=== PATIENT | female | born 1960 | race Two or more races ===

== ENCOUNTER 2020-09-03 11:52 | Outpatient (REF) | payer MEDICAID, SELFPAY ==
[2020-09-03 13:48] LABS: Alanine Aminotransferase 16 U/L (0-31); Albumin Level 4.4 g/dL (3.5-5.0); Alkaline Phosphatase 71 U/L (39-117); Anion Gap 11 (12-20); Aspartate Amino Transferase 15 U/L (5-31); Bilirubin Total 0.3 mg/dL (0.0-1.0); Blood Urea Nitrogen 14 mg/dL (9-16); Calcium 9.8 mg/dL (8.4-10.2); Carbon Dioxide 30 mmol/L (22-29); Chloride 102 mmol/L (96-108); Estimated Glomerular Filt Rate > 60; Glucose Random 140 mg/dL (60-115); Potassium 4.3 mmol/l (3.3-5.1); Sodium 139 mmol/L (135-145); Total Protein 7.4 g/dL (6.5-8.0)
[2020-09-03 14:11] LABS: Free T4 (Free Thyroxine) 1.25 ng/dL (0.71-1.85); Thyroid Stimulating Hormone 0.85 mIU/mL (0.32-4.0)
[2020-09-10 21:27] LABS: Fructosamine 271 umol/L (205-285)
== END 2020-09-03 11:53 | disposition home or self-care (01) ==
LOC: HO.LAB 11:52
PROVIDERS: Visit Provider Internal Medicine Endocrinology, Diabetes & Metabolism
DX: E11.65 Type 2 diabetes mellitus with hyperglycemia (principal); E03.9 Hypothyroidism, unspecified
CPT/HCPCS: 80053; 82985; 84439; 84443

== ENCOUNTER 2020-09-07 14:50 | Outpatient (REF) | payer MEDICAID, SELFPAY ==
--- NOTE | 2020-09-07 15:58 | XR_ITS ---
EXAMINATION: XR SHOULDER, RIGHT CLINICAL INFORMATION: Pain COMPARISON: Previous x-ray July 2017 chest x-ray most recent June 2018 TECHNIQUE: Three views of the right shoulder. FINDINGS: Bone alignment is normal. No fracture or dislocation is seen. The glenohumeral joint is normal. There is mild arthritis at the acromioclavicular joint. There are densities that project over the greater tuberosity. When compared with previous chest x-ray and shoulder x-ray this represents soft tissue calcifications. IMPRESSION: Mild arthritis at the acromioclavicular joint. Soft tissue calcification over the greater tuberosity probably representing calcific bursitis or tendinitis.
== END 2020-09-07 14:51 | disposition home or self-care (01) ==
LOC: HO.XRAY 14:50
PROVIDERS: Absent Provider Emergency Medicine; PCP Emergency Medicine; Referring Provider Emergency Medicine; Visit Provider Internal Medicine Endocrinology, Diabetes & Metabolism
DX: E11.65 Type 2 diabetes mellitus with hyperglycemia (principal); I10 Essential (primary) hypertension; E03.9 Hypothyroidism, unspecified; E78.5 Hyperlipidemia, unspecified; M25.551 Pain in right hip; Z79.4 Long term (current) use of insulin
CPT/HCPCS: 73030; 99214

== ENCOUNTER → 2020-09-22 12:29 | Outpatient (BNVA) | payer MEDICAID, SELFPAY | PROVIDERS: PCP Emergency Medicine; Referring Provider Emergency Medicine; Visit Provider Physician Assistant | DX: A04.8 Other specified bacterial intestinal infections (principal) | CPT/HCPCS: 99212 ==

== ENCOUNTER 2020-09-23 11:25 | Outpatient (REF) | payer MEDICAID, SELFPAY ==
[2020-09-23 12:42] LABS: Cholesterol 126 mg/dL; HDL Cholesterol 40 mg/dL; LDL Cholesterol Calculated 64 mg/dl; Triglycerides 114 mg/dL
[2020-09-23 12:55] LABS: Microalbumin Urine < 5.0 mg/L
[2020-09-23 17:48] LABS: Vitamin B12 304 pg/mL (200-900)
[2020-09-24 20:57] LABS: LDL Cholesterol Direct 75 mg/dL (<100)
[2020-09-28 21:21] LABS: Fructosamine 281 umol/L (205-285)
== END 2020-09-23 11:26 | disposition home or self-care (01) ==
LOC: HO.LAB 11:25
PROVIDERS: Physician Assistant; Visit Provider Internal Medicine Endocrinology, Diabetes & Metabolism
DX: A04.8 Other specified bacterial intestinal infections (principal); E11.65 Type 2 diabetes mellitus with hyperglycemia
CPT/HCPCS: 80061; 82043; 82607; 82985; 83721; 87338

== ENCOUNTER → 2020-10-20 08:44 | Outpatient (BNVA) | payer MEDICAID, SELFPAY | PROVIDERS: PCP Emergency Medicine; Visit Provider Physician Assistant | DX: A04.8 Other specified bacterial intestinal infections (principal); Z79.899 Other long term (current) drug therapy; Z79.84 Long term (current) use of oral hypoglycemic drugs | CPT/HCPCS: 99212 ==

== ENCOUNTER 2020-11-17 11:23 | Outpatient (REF) | payer MEDICAID, SELFPAY ==
--- NOTE | 2020-11-17 11:27 | US_ITS ---
EXAMINATION: US THYROID CLINICAL INFORMATION: Hypothyroidism, unspecified. COMPARISON: None. TECHNIQUE: Linear transducer zimmerman-scale and color Doppler examination with attention to the region of the thyroid. FINDINGS: SIZE: Measurements of the thyroid lobes and nodules are given in sagittal, anteroposterior and transverse dimensions respectively. Right Thyroid Lobe: 1.7 x 0.8 x 0.8 cm, volume 0.6 mL. Parenchyma: The gland echotexture is heterogeneous. Thyroid vascularity is normal. Left Thyroid Lobe: 3.1 x 0.7 x 0.8 cm, volume 0.9 mL. Parenchyma: The gland echotexture is homogeneous. Thyroid vascularity is normal. Isthmus: 0.1 cm in maximum AP dimension. RIGHT THYROID LOBE: No nodules. ISTHMUS: No nodules. LEFT THYROID LOBE: No nodules. NODES: No lymphadenopathy is seen in the tissue surrounding the thyroid gland. US/US thyroid IMPRESSION: Unremarkable ultrasound thyroid exam.
== END 2020-11-17 11:24 | disposition home or self-care (01) ==
LOC: HO.US 11:23
PROVIDERS: Visit Provider Internal Medicine Endocrinology, Diabetes & Metabolism
DX: E03.9 Hypothyroidism, unspecified (principal); S46.911A Strain of unspecified muscle, fascia and tendon at shoulder and upper arm level, right arm, initial encounter
CPT/HCPCS: 76536; 99202

== ENCOUNTER → 2020-12-06 14:20 | Outpatient (BNVA) | payer MEDICAID, SELFPAY | PROVIDERS: Visit Provider Nurse Practitioner Gerontology | DX: E11.65 Type 2 diabetes mellitus with hyperglycemia (principal); I10 Essential (primary) hypertension | CPT/HCPCS: 82947; 99212 ==

== ENCOUNTER 2020-12-15 11:06 | Outpatient (REF) | payer MEDICAID, SELFPAY | END 2020-12-15 11:07 | disposition home or self-care (01) | LOC: HO.LAB 11:06 | PROVIDERS: Visit Provider Internal Medicine | DX: Z20.822 Contact with and (suspected) exposure to COVID-19 (principal) | CPT/HCPCS: 36415; C9803; U0003 ==

== ENCOUNTER → 2020-12-21 09:23 | Outpatient (BNVA) | payer MEDICAID, SELFPAY | PROVIDERS: PCP Family Medicine; Visit Provider Internal Medicine Endocrinology, Diabetes & Metabolism | DX: E11.65 Type 2 diabetes mellitus with hyperglycemia (principal); I10 Essential (primary) hypertension; E78.5 Hyperlipidemia, unspecified; E03.9 Hypothyroidism, unspecified; Z79.4 Long term (current) use of insulin | CPT/HCPCS: 82947; 99212 ==

== ENCOUNTER 2021-01-01 20:17 | Emergency (ER) | payer MEDICAID, SELFPAY ==
--- NOTE | ~2021-01-01 | XR_ITS ---
EXAMINATION: XR SHOULDER, RIGHT CLINICAL INFORMATION: Pain COMPARISON: 09/07/2020 TECHNIQUE: AP external rotation, Grashey, scapular Y, and axillary views of the right shoulder. FINDINGS: There is mild acromioclavicular osteoarthritis. There is mild lateral downsloping of the acromion with osteophytosis of the undersurface. Glenohumeral joint is well preserved. No fracture. Alignment is anatomic. Visualized right lung and ribs are normal. XR/XR shoulder RT min 2V IMPRESSION: No acute osseous abnormality of the right shoulder.
[2021-01-01 20:25] VITALS: BP 132/98; PULSE 115; RESP 18; TEMP 36.7; O2SAT 98; BMI 23.1
--- NOTE | 2021-01-01 21:49 | ED.URI ---
HPI - URI/Sore Throat General Chief Complaint: Extremity Injury, Upper Stated Complaint: sholder pain Time Seen by Provider: 01/01/21 21:49 Source: patient Mode of arrival: ambulatory Limitations: language barrier History of Present Illness HPI Narrative: Patient complaining of upper back pain and sore throat for last few weeks with similar history in the past patient does have history of gastric reflux not taking any PPI at this time no fever no cough no shortness of breath Related Data Home Medications Medication Instructions Recorded Confirmed ascorbate calcium (vitamin C) 500 500 mg PO DAILY 09/07/20 12/21/20 mg tablet blood glucose control high and low #1 ea 09/07/20 12/21/20 solution cholecalciferol (vitamin D3) 50 50 mcg PO DAILY 09/07/20 12/21/20 mcg (2,000 unit) capsule Previous Rx's Medication Instructions Recorded Levoxyl 137 mcg tablet 137 mcg PO DAILY 30 Days #30 tab NS 09/07/20 atorvastatin 20 mg tablet 20 mg PO DAILY 30 Days #30 tab 09/07/20 dapagliflozin 10 mg tablet 10 mg PO DAILY 30 Days #30 tab 09/07/20 linagliptin 5 mg tablet 5 mg PO DAILY 30 Days #30 tab 09/07/20 lisinopril 40 mg tablet 40 mg PO DAILY 30 Days #30 tab 09/07/20 metformin 1,000 mg tablet 1,000 mg PO BID 30 Days #60 tab 09/07/20 pen needle, diabetic 32 gauge x #100 ea 11/02/20/ hydrocortisone 2.5 % topical cream 1 appl OK BID PRN #30 g 11/09/20 with perineal applicator lancets 28 gauge #100 ea 11/17/20 blood sugar diagnostic #100 ea 11/30/20 omeprazole 40 mg PO DAILY #30 cap 01/01/21 Allergies Allergy/AdvReac Type Severity Reaction Status Date / Time penicillin V Allergy Unknown hives Verified 01/01/21 20:24 Penicillins [PENICILLINS] Allergy Unknown RASH,DIZZIN Verified 01/01/21 20:24 ESS Review of Systems Review of Systems: Yes all other systems are reviewed and are negative [facility] Past Medical History Medical History Diabetes type 2, uncontrolled Dyslipidemia H. 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 Father Diabetes Heart disease Mother Diabetes Hypertension Social History Social History Household Members: Spouse and Children Housing: House Alcohol intake: unknown Smoking Status: Unknown if ever smoked Use of substances other than those prescribed or required for medical reasons: Unknown Advance Directives: No Advance Directives Information Provided: No Current occupation: Right Handed Physical Exam Vital Signs: Vital Signs: Last Vital Signs Temp 98.1 F 01/01/21 20:25 Pulse 115 H 01/01/21 20:25 Resp 18 01/01/21 20:25 BP 132/98 H 01/01/21 20:25 Pulse Ox 98 01/01/21 20:25 Body Mass Index 23.1 Appearance: Alert. Oriented X3. No acute distress. Eyes: Pupils equal, round and reactive to light. ENT: Pharynx normal. No erythema no x-ray Neck: Normal inspection. Neck supple. CVS: Normal heart rate and rhythm. Pulses normal. Respiratory: No respiratory distress. Breath sounds normal. Abdomen: Soft and nontender. Bowel sounds are present, no mass palpable, no CVA tenderness Skin: Skin warm and dry. Normal skin color. Normal skin turgor. Extremities: No lower extremity edema. Diffuse muscle tenderness in upper scapular area Neuro: Oriented X 3. No motor deficit. No sensory deficit. MDM - URI/Sore Throat MDM Narrative Medical decision making narrative: Patient's symptoms are likely from GERD which are usually more prominent when he wakes when she wakes up in the morning not on any PPI and upper back pain is likely from fibromyalgia which she suffers for long time. Will give her PPI advised to follow-up with PCP Lab Data Attestation: I reviewed the patient's lab results. Discharge Plan Discharge Clinical Impression: Gastric reflux syndrome Patient Disposition: Home, Self-Care Instructions: Gastroesophageal Reflux Disease (ED) Additional Instructions: Do not have late supper, avoid any fried food, sleep with head raised as advised Medication for acid as advised , follow-up with PCP No cenar tarde, evitar los alimentos fritos, dormir con la harriett levantada yisel se aconseja Medicaci?n para el ?cido seg?n lo recomendado, seguimiento con PCP Prescriptions: New omeprazole 40 mg capsule,delayed release(DR/EC) 40 mg PO DAILY Qty: 30 RF: 0 No Action (DME) pen needle, diabetic [BD Corin 2nd Gen Pen Needle] 32 gauge x 5/32 needle See Rx Instructions .MEDSUPPLY Qty: 100 RF: 4 hydrocortisone [Proctozone-HC] 2.5 % cream with perineal applicator 1 appl OK BID PRN (Reason: hemorrhoids) Qty: 30 RF: 3 (DME) lancets [FreeStyle Lancets] 28 gauge misc See Rx Instructions .ROUTE .MEDSUPPLY Qty: 100 RF: 1 (DME) FreeStyle Lite Strips Strip See Rx Instructions .ROUTE .MEDSUPPLY Qty: 100 RF: 5 cholecalciferol (vitamin D3) 50 mcg (2,000 unit) capsule 50 mcg PO DAILY RF: 0 ascorbate calcium (vitamin C) 500 mg tablet 500 mg PO DAILY RF: 0 (DME) FreeStyle Control Solution See Rx Instructions .ROUTE .MEDSUPPLY Qty: 1 RF: 0 Farxiga 10 mg tablet 10 mg PO DAILY 30 Days Qty: 30 RF: 4 Tradjenta 5 mg tablet 5 mg PO DAILY 30 Days Qty: 30 RF: 5 metformin 1,000 mg tablet 1,000 mg PO BID 30 Days Qty: 60 RF: 5 levothyroxine [Levoxyl] 137 mcg tablet 137 mcg PO DAILY 30 Days Qty: 30 RF: 5 atorvastatin 20 mg tablet 20 mg PO DAILY 30 Days Qty: 30 RF: 4 lisinopril 40 mg tablet 40 mg PO DAILY 30 Days Qty: 30 RF: 4 Interventions: ED Discharge Assessment Last Done: 01/01/21 22:00 Discharge Date/Time: 01/01/21 22:58
== END 2021-01-01 22:58 | disposition home or self-care (01) ==
PROVIDERS: Emergency Provider Internal Medicine
DX: M25.512 Pain in left shoulder (principal); M54.5 Low back pain; J02.9 Acute pharyngitis, unspecified; M25.511 Pain in right shoulder; Z79.899 Other long term (current) drug therapy
CPT/HCPCS: 73030; 99283; 99284

== ENCOUNTER 2021-01-17 08:56 | Outpatient (REF) | payer MEDICAID, SELFPAY | END 2021-01-17 08:57 | disposition home or self-care (01) | LOC: HO.XRAY 08:56 | PROVIDERS: Visit Provider Family Medicine | DX: Z13.89 Encounter for screening for other disorder (principal) ==

== ENCOUNTER 2021-01-26 08:11 | Outpatient (REF) | payer MEDICAID, SELFPAY ==
--- NOTE | ~2021-01-26 | FL_ITS ---
EXAMINATION: XR GI SERIES CLINICAL INFORMATION: Dysphagia. COMPARISON: Previous CT of the abdomen and pelvis December 2018. TECHNIQUE: Upper GI was performed using thin and thick barium and effervescent granules. FINDINGS: There is significant gastroesophageal reflux. 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 Questionable for esophagitis. No hernia or a stricture is seen. There is increased thickening of the stomach and duodenum questionable for hyperacidity gastritis and duodenitis. No mass, stricture or ulcer is seen. FLUOROSCOPY TIME: 1.6 minutes. DOSE AREA PRODUCT: 11.5 Gy-cm2. TOTAL DOSE: 42 mGy. IMAGES: 37 saved fluoroscopic images. FL/FL upper GI series IMPRESSION: Significant gastroesophageal reflux and feline contractions of the esophagus, questionable for esophagitis. There also appears to be prominent folds in the stomach and duodenum, questionable for hyperacidity.
== END 2021-01-26 08:12 | disposition home or self-care (01) ==
LOC: HO.XRAY 08:11
PROVIDERS: PCP Family Medicine; Visit Provider Family Medicine
DX: R13.10 Dysphagia, unspecified (principal)
CPT/HCPCS: 74240

== ENCOUNTER → 2021-02-09 10:11 | Outpatient (BNVA) | payer MEDICAID, SELFPAY | PROVIDERS: PCP Family Medicine; Visit Provider Orthopaedic Surgery | DX: S46.911D Strain of unspecified muscle, fascia and tendon at shoulder and upper arm level, right arm, subsequent encounter (principal) | CPT/HCPCS: 99212 ==

== ENCOUNTER 2021-02-28 09:02 | Outpatient (REF) | payer MEDICAID, SELFPAY ==
--- NOTE | ~2021-02-28 | MM_ITS ---
EXAMINATION: MM SCREENING DIGITAL BREAST TOMOSYNTHESIS, BILATERAL CLINICAL INFORMATION: Screening. Asymptomatic. The lifetime risk of breast cancer based on the Tyrer-Cuzick Model is 6%. COMPARISON: Mammography: 09/25/2019, 09/17/2018, 12/07/2016 TECHNIQUE: Digital breast tomosynthesis is performed in both the craniocaudal and mediolateral oblique views along with computer-aided detection (CAD). Synthesized 2D images are generated from the tomosynthesis. FINDINGS: There are scattered areas of fibroglandular density (ACR BI-RADS breast composition Category b). There are no significant masses, abnormal calcifications, or other abnormalities. The axilla and skin contours are unremarkable. No significant changes from prior exams. MM/MM tomosynthesis screening BI IMPRESSION: No mammographic evidence of malignancy. ASSESSMENT: BI-RADS 1: Negative RECOMMENDATION: Routine annual mammography screening. This patient's information was entered into a reminder system with a target due date for their next mammogram.
== END 2021-02-28 09:03 | disposition home or self-care (01) ==
LOC: HO.MAMMO 09:02
PROVIDERS: Visit Provider Family Medicine
DX: Z12.31 Encounter for screening mammogram for malignant neoplasm of breast (principal)
CPT/HCPCS: 77063; 77067

== ENCOUNTER 2021-03-03 12:09 | Outpatient (REF) | payer MEDICAID, SELFPAY | END 2021-03-03 12:10 | disposition home or self-care (01) | LOC: HO.LAB 12:09 | PROVIDERS: Visit Provider Internal Medicine | DX: Z20.822 Contact with and (suspected) exposure to COVID-19 (principal) | CPT/HCPCS: C9803; U0003; U0005 ==

== ENCOUNTER 2021-03-16 11:50 | Outpatient (REF) | payer MEDICAID, SELFPAY ==
[2021-03-16 13:14] LABS: COVID-19 Test Negative (Negative)
== END 2021-03-16 11:51 | disposition home or self-care (01) ==
LOC: HO.LAB 11:50
PROVIDERS: Visit Provider Internal Medicine
DX: Z20.822 Contact with and (suspected) exposure to COVID-19 (principal)
CPT/HCPCS: 36415; 87635; C9803

== ENCOUNTER → 2021-03-21 08:18 | Outpatient (BNVA) | payer MEDICAID, SELFPAY | PROVIDERS: PCP Family Medicine; Visit Provider Physician Assistant | DX: K21.9 Gastro-esophageal reflux disease without esophagitis (principal) | CPT/HCPCS: 99212 ==

== ENCOUNTER 2021-04-01 08:00 | Outpatient (RCR) | payer MEDICAID, SELFPAY ==
--- NOTE | 2021-03-01 10:50 | MHC.PT.EP ---
[facility] [place] Office [place] Office [place] Office [address] Azul Chavez [address] [phone] F: [phone] F: [phone] F: [phone] F: [phone] Physical Therapy Plan of Care Date of Evaluation: 03/01/21 Date of Surgery: N/a Diagnosis: right shoulder pain, cervical pain. Assessment: The patient reports a history of shoulder pain without improvement. After exam she had painful and reduced cervical ROM, some decreased strength in the C5 and C7 myotome. Pt also shares that she sleeps on 3 pillows and wakes with more pain in general. The patient's shoulder pain likely has cervical etiology. Pt given sleeping posture, sitting posture recommendations, and I began with seated cervical lorenzo exercises. She will need more postural strengthening to reinforce our education. Pt is a good candidate for skilled PT. Frequency and Duration: The patient will be seen 2x/week x 4 weeks. Short Term Goals: 1.Pt to able to demonstrate proper sitting posture with the use of a lumbar roll to decrease aggravating factors. 2.Pt to be able to demonstrate proper posture for common leisure activities such as crocheting and phone/tablet use. 3.For the patient to demonstrate proper upright sitting posture with use of the lumbar roll to improve compliance and carryover. 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 Pt to be able to return to normal PLOF without limiting pain. 2. Pt to be able to return to overhead reaching without pain or limitation. 3. Pt to be able to manage her pain with selected exercise and stretching regime. Treatment Plan: Modalities to reduce pain, spasms and effusion. Manual therapy to restore motion and function. Therapeutic exercise to improve strength and flexibility. Neuromuscular re-education for posture and balance. Therapeutic activities to return to functional activities of daily living. Electronically signed by: Osiris Watts PT DPT Please sign and return to therapist. Thank you for your referral.
== END 2021-04-04 08:00 | disposition home or self-care (01) ==
LOC: HO.PT 08:00
PROVIDERS: PCP Family Medicine; Visit Provider Orthopaedic Surgery
DX: S46.911A Strain of unspecified muscle, fascia and tendon at shoulder and upper arm level, right arm, initial encounter (principal); M54.2 Cervicalgia
CPT/HCPCS: 97110; 97112; 97162

== ENCOUNTER 2021-04-06 09:02 | Outpatient (REF) | payer MEDICAID, SELFPAY ==
[2021-04-07 01:47] LABS: CT PCR NOT DETECTED (Not Detect.); NG PCR NOT DETECTED (Not Detect.)
[2021-04-07 09:08] LABS: BV Int Neg Control Negative (Negative); BV Int Pos Control Positive (Positive)
== END 2021-04-06 09:03 | disposition home or self-care (01) ==
LOC: HO.LAB 09:02
PROVIDERS: PCP Family Medicine; Visit Provider Advanced Practice Midwife
DX: Z01.419 Encounter for gynecological examination (general) (routine) without abnormal findings (principal); R10.2 Pelvic and perineal pain; N84.1 Polyp of cervix uteri; R35.0 Frequency of micturition; Z20.2 Contact with and (suspected) exposure to infections with a predominantly sexual mode of transmission
CPT/HCPCS: 81003; 87480; 87491; 87510; 87591; 87660

== ENCOUNTER 2021-04-11 06:41 | Day surgery (SDC) | payer MEDICAID, SELFPAY ==
[2021-04-05 16:00] VITALS: BMI 24.0
--- NOTE | 2021-04-06 10:33 | HO.ANESPROP2 ---
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 pylori infection (Acute) Past Medical History Medical History Acid reflux Diabetes type 2, uncontrolled Dyslipidemia H. 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 Father Diabetes Heart disease Mother Diabetes Hypertension Surgical History Surgical History Hx of cholecystectomy Hx of tubal ligation Social History Social History Household Members: Spouse and Children Housing: House Alcohol intake: unknown Smoking Status: Never smoker Second Hand Smoke Exposure: No Use of substances other than those prescribed or required for medical reasons: No Are you DNR?: No Advance Directives: No Advance Directives Information Provided: Yes Recently lost weight without trying: No Nutrition Risks: No Nutritional Risk Current occupational status: disabled Meds Allergies Allergy/AdvReac Type Severity Reaction Status Date / Time penicillin V Allergy Unknown hives Verified 04/06/21 09:10 Penicillins [PENICILLINS] Allergy Unknown RASH,DIZZIN Verified 04/06/21 09:10 ESS Home Medications Medication Instructions Recorded Confirmed Last Taken Type ascorbate calcium (vitamin C) 500 500 mg PO DAILY 09/07/20 01/24/21 Unknown History mg tablet blood glucose control high and low #1 ea 09/07/20 01/24/21 Unknown History solution cholecalciferol (vitamin D3) 50 50 mcg PO DAILY 09/07/20 01/24/21 Unknown History mcg (2,000 unit) capsule pantoprazole 40 mg tablet,delayed 40 mg PO DAILY 03/21/21 03/21/21 Unknown History release Exam Exam Date and Time: April 06, 2021 1033 Height,Weight and Vital Signs: Height 5 ft 4 in Weight 63.503 kg Assessment and Plan Assessment Anesthesia Assessment: Chart Reviewed Documented by User: Daniel Buenrostro 04/11/21 08:37 [facility] Past Medical History Medical History Acid reflux Diabetes type 2, uncontrolled Dyslipidemia H. 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 Father Diabetes Heart disease Mother Diabetes Hypertension Surgical History Surgical History Hx of cholecystectomy Hx of tubal ligation Social History Social History Household Members: Spouse and Children Housing: House Alcohol intake: unknown Smoking Status: Never smoker Second Hand Smoke Exposure: No Use of substances other than those prescribed or required for medical reasons: No Are you DNR?: No Advance Directives: No Advance Directives Information Provided: Yes Recently lost weight without trying: No Nutrition Risks: No Nutritional Risk Current occupational status: disabled Meds Allergies Allergy/AdvReac Type Severity Reaction Status Date / Time penicillin V Allergy Unknown hives Verified 04/06/21 09:10 Penicillins [PENICILLINS] Allergy Unknown RASH,DIZZIN Verified 04/06/21 09:10 ESS Home Medications Medication Instructions Recorded Confirmed Last Taken Type ascorbate calcium (vitamin C) 500 500 mg PO DAILY 09/07/20 01/24/21 Unknown History mg tablet blood glucose control high and low #1 ea 09/07/20 01/24/21 Unknown History solution cholecalciferol (vitamin D3) 50 50 mcg PO DAILY 09/07/20 01/24/21 Unknown History mcg (2,000 unit) capsule pantoprazole 40 mg tablet,delayed 40 mg PO DAILY 03/21/21 03/21/21 Unknown History release Exam Airway Mallampati Class: II TM Dist: >3cm Neck ROM: Full Loose/Missing/Broken Teeth: Yes (Poor dentition) Heart: [id number] Lungs: cta b/l Assessment and Plan Assessment Anesthesia Assessment: Anesthesia Plan Discussed, PAT Visit and Chart Reviewed Final Anesthetic Review NPO: Yes ASA Class: II Final Preanesthetic Review: No Changes in Pt Med Stat, Meds/Allgs Chart Reviewed, Consent Obtained/Reviewed and Anes Risks/Benef Reviewed Patient Risk: Low Procedure Risk: Low Assessment/Block/Sedation in SS: Assess/Block/Sedation-SS Anesthetic Plan Anesthetic Plan: MAC: and Agree w/ Assess. and Plan Disposition: Standard PACU
[2021-04-11 07:11] VITALS: BP 148/59; PULSE 84; RESP 17; TEMP 36.2; O2SAT 100; BMI 24.0
[2021-04-11] MEDS: Lactated Ringers 1,000 ML 100 ML IVCONT (07:23)
[2021-04-11 07:47] LABS: Glucose, Whole Blood 136 mg/dL (60-115)
--- NOTE | 2021-04-11 08:28 | MHC.SHP ---
Pre-Procedural Eval Section B Chief Complaint: Acid reflux Relevant Family History (Specify if Yes): No Relevant Social History: None Present Medications: see Short Stay Collaborative assessment Medical History: Significant History (Acid reflux Diabetes type 2, uncontrolled Dyslipidemia H. 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 Overweight (BMI 25.0-29.9)) History of Previous Operations: Relevant previous surgery/procedure and date(s) (cholecystectomy, tubal ligation) Allergies: Allergies Allergy/AdvReac Type Severity Reaction Status Date / Time penicillin V Allergy Unknown hives Verified 04/06/21 09:10 Penicillins [PENICILLINS] Allergy Unknown RASH,DIZZIN Verified 04/06/21 09:10 ESS Review of Systems Sugical H&P ROS: Negative: Constitution, Cardiovascular, Respiratory, Neurological, Psychiatric, Hem-Onc, Allergic/Immunologic, Gastrointestinal, Genitourinary, Musculoskeletal, Integumentary, Endocrine and Eyes/Ears/Nose/Throat Exam Surgical H&P Exam: Normal: HEENT, Normal: Heart, Normal: Lungs, Normal: Extremities, Normal: Abdomen, Normal: Skin and Normal: Neurological Plan Diagnosis/Plan: Unchanged I have reviewed the history and physical and performed a pertinent physical examination on my patient. No changes have occurred unless specified.
--- NOTE | 2021-04-11 08:29 | PM.OP ---
Brief Operative Note Date of Service: 04/11/21 Pre-op diagnosis: GERD Post-op diagnosis: same Procedure: see op note Surgeon: Berry Yan MD Anesthesia: MAC Was an Front End Application Developer used for this Procedure?: No Estimated blood loss (mL): 0 Condition: stable Disposition: PACU
--- NOTE | 2021-04-11 08:30 | W.PM.OPN ---
Operative Note Operative Note Date of Service: 04/11/21 Narrative: Procedure Description: EGD FLEXIBLE TRANSORAL UPPER GASTROINTESTINAL ENDOSCOPY UPPER ENDOSCOPY Consent: Indications for the procedure and potential complications of bleeding, perforation, reaction to medications and missed diagnosis were discussed with the patient and informed consent was obtained. Instrument: Olympus GIF H 190 J mid size upper endoscope Monitoring: Vital signs and clinical assessment, continuous EKG monitoring, Pulse oximetry, Carbon Dioxide monitoring and blood pressure monitoring were done throughout the procedure. Procedure: The patient was placed in the left lateral decubitis position and pre-procedure medications were administered and a bite block was placed. The endoscope was inserted into the mouth and advanced under direct vision to the third part of duodenum. A careful inspection was made as the upper endoscope was withdrawn including a retroflexed examination of the proximal stomach; Findings and interventions are described below. Findings: Larynx:normal Esophagus: GE junction at 31 cm, diaphragm hiatus at 34 cm, compatible with 3 cm sliding hiatal hernia, mils esophagitis note,d bx taken from GEJ and distal esophagus in separate jars Stomach: Normal. Biopsies were obtained. Grade 2 flap valve on retroflexed examination of the cardia. Duodenum: Normal bulb and descending duodenum, bx taken Intervention: Biopsies as noted above Impression/Findings: esophagitis hiatal hernia PLAN: optimize PPI and lifestyle measures, GERD precautions if sx persist then consider surgical referral for hernia repair and possible fundoplication
[2021-04-11 08:48] VITALS: BP 90/50; PULSE 64; RESP 16; TEMP 36.2; O2SAT 98
[2021-04-11 09:00] VITALS: BP 123/58; PULSE 74; RESP 20; TEMP 36.2; O2SAT 98
[2021-04-11 09:22] VITALS: BP 116/59; PULSE 72; RESP 18; O2SAT 98
== END 2021-04-11 10:48 | disposition home or self-care (01) ==
PROVIDERS: PCP Family Medicine; Visit Provider Internal Medicine Gastroenterology
PROC: 0DJ08ZZ Inspection of Upper Intestinal Tract, Via Natural or Artificial Opening Endoscopic (ICD-10-PCS; CPT 43235; principal; 2021-04-11 08:30)
DX: K21.9 Gastro-esophageal reflux disease without esophagitis (principal); K20.80 Other esophagitis without bleeding; K44.9 Diaphragmatic hernia without obstruction or gangrene; E11.9 Type 2 diabetes mellitus without complications; I10 Essential (primary) hypertension; Z86.19 Personal history of other infectious and parasitic diseases; Z90.49 Acquired absence of other specified parts of digestive tract; Z79.4 Long term (current) use of insulin; Z79.899 Other long term (current) drug therapy; Z88.0 Allergy status to penicillin
CPT/HCPCS: 43239; 82947; 88305; 88342

== ENCOUNTER 2021-04-21 14:36 | Outpatient (REF) | payer MEDICAID, SELFPAY ==
--- NOTE | ~2021-04-21 | US_ITS ---
EXAMINATION: US PELVIS AND TRANSVAGINAL CLINICAL INFORMATION: Pelvic and perineal pain. LMP 5 years ago. Postmenopausal COMPARISON: None TECHNIQUE: Transabdominal and transvaginal imaging of the pelvis is performed. FINDINGS: The uterus is retroverted and heterogeneous measuring 4.6 cm in length, 2.5 cm in AP and 4.0 cm in transverse dimension. No focal lesion seen. The endometrial thickness is not visualized. Both ovaries are not seen well. There is no free fluid in the cul-de-sac. Large amount of peristalsing bowel loops seen in the pelvis. US/US pelvic and transvaginal IMPRESSION: Heterogenous uterus with no focal lesion seen. The endometrium is not well visualized. The ovaries are not well seen. There is no adnexal mass or free fluid except for peristalsing bowel loops.
== END 2021-04-21 14:37 | disposition home or self-care (01) ==
LOC: HO.US 14:36
PROVIDERS: Visit Provider Advanced Practice Midwife
DX: R10.2 Pelvic and perineal pain (principal); N84.1 Polyp of cervix uteri
CPT/HCPCS: 76830; 76856

== ENCOUNTER → 2021-05-02 09:50 | Outpatient (BNVA) | payer MEDICAID, SELFPAY | PROVIDERS: PCP Family Medicine; Referring Provider Family Medicine; Visit Provider Physician Assistant | DX: K21.9 Gastro-esophageal reflux disease without esophagitis (principal); K63.5 Polyp of colon | CPT/HCPCS: 99212 ==

== ENCOUNTER → 2021-05-04 13:55 | Outpatient (BNVA) | payer MEDICAID, SELFPAY | PROVIDERS: PCP Family Medicine; Visit Provider Advanced Practice Midwife ==

== ENCOUNTER 2021-05-19 09:43 | Outpatient (REF) | payer MEDICAID, SELFPAY | END 2021-05-19 09:44 | disposition home or self-care (01) | LOC: HO.LAB 09:43 | PROVIDERS: PCP Family Medicine; Visit Provider Obstetrics & Gynecology | DX: N84.1 Polyp of cervix uteri (principal) | CPT/HCPCS: 57500; 88305 ==

== ENCOUNTER → 2021-05-31 14:23 | Outpatient (BNVA) | payer MEDICAID, SELFPAY | PROVIDERS: PCP Family Medicine; Visit Provider Obstetrics & Gynecology ==

== ENCOUNTER 2021-07-13 10:24 | Outpatient (REF) | payer MEDICAID, SELFPAY ==
[2021-07-13 12:39] LABS: Alanine Aminotransferase 18 U/L (0-31); Albumin Level 4.4 g/dL (3.5-5.0); Alkaline Phosphatase 78 U/L (39-117); Anion Gap 13 (12-20); Aspartate Amino Transferase 15 U/L (5-31); Bilirubin Total 0.4 mg/dL (0.0-1.0); Blood Urea Nitrogen 15 mg/dL (9-16); Carbon Dioxide 27 mmol/L (22-29); Chloride 104 mmol/L (96-108); Cholesterol 139 mg/dL; Estimated Glomerular Filt Rate > 60; Glucose Random 191 mg/dL (60-115); HDL Cholesterol 45 mg/dL; LDL Cholesterol Calculated 84 mg/dl; Potassium 4.4 mmol/L (3.3-5.1); Sodium 140 mmol/L (135-145); Total Protein 7.4 g/dL (6.5-8.0); Triglycerides 50 mg/dL
[2021-07-13 12:44] LABS: Creatinine Urine 30.03 mg/dL; Microalbumin Urine < 5.0 mg/L
[2021-07-13 13:48] LABS: Estimated Average Glucose 171 mg/dL; Hemoglobin A1c % 7.6 %
[2021-07-14 11:32] LABS: LDL Cholesterol Direct 85 mg/dL (<100)
== END 2021-07-13 10:25 | disposition home or self-care (01) ==
LOC: HO.LAB 10:24
PROVIDERS: PCP Family Medicine; Visit Provider Internal Medicine
DX: E11.65 Type 2 diabetes mellitus with hyperglycemia (principal)
CPT/HCPCS: 36415; 80053; 80061; 82043; 83036; 83721

== ENCOUNTER 2021-07-22 13:11 | Outpatient (REF) | payer MEDICAID, SELFPAY ==
--- NOTE | 2021-07-29 10:01 | MHC.AU.ANO ---
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 She does not recall any events that occurred around the time of onset, such as infection or trauma. She finds the tinnitus bothersome, and has experience difficulty falling asleep because of it. She does not suspect hearing difficulties. Medical History: Medical History: Diabetes, High Blood Pressure, Thyroid Disease Otoscopy: Right Ear: Unremarkable Left Ear: Unremarkable Tympanometry: Tympanometry performed due to: To assess integrity of the middle ear system Right Ear: Normal Middle Ear System (Type A) Left Ear: Normal Middle Ear System (Type A) Otoacoustic Emissions Frequency Range Used: 1.6-8 kHz Right Ear Results: Normal 1.6-2.0 kHz, Reduced 2.5-4.0 kHz, Normal 6.0-8.0 kHz Left Ear Results: Normal from 1.6-8 kHz, suggesting normal cochlear function in the left ear Hearing Evaluation: Transducer(s) Used: Insert Earphones Method: Conventional Audiometry Stimuli Used: Pure Tones Right Ear: Description of Hearing: Overall normal hearing, with dip to mild conductive hearing loss at 3000 Hz Left Ear: Description of Hearing: Overall normal hearing, with dip to mild conductive hearing loss at 3000 Hz Speech Recognition Threshold (SRT): Method Used: Recorded Lists Stimuli Used: Right Ear: 20 dBHL Left Ear: 20 dBHL Word Discrimination: Method: Recorded Lists Word Lists Used: Lista Bisil?bica (Ethiopian) Right Ear: 96% at 60 dBHL Left Ear: 100% at 60 dBHL Interpretation of Results: Hearing is mostly within normal range, with a dip to mild conductive hearing loss at 3000 Hz bilaterally. Otoacoustic emissions were different between the two ears; the left OAEs were normal, whereas the right ear had reduced emissions from 0566-4082 Hz. Recommendations: Referral to Ear, Nose, and Throat is recommended to further investigate right-sided tinnitus. Diagnosis: Primary Diagnosis: H93.11 Tinnitus, Right Ear Signature: Provider: Rod Vega, [facility]
== END 2021-07-22 13:12 | disposition home or self-care (01) ==
LOC: HO.SH 13:11
PROVIDERS: Visit Provider Family Medicine
DX: H93.11 Tinnitus, right ear (principal)
CPT/HCPCS: 92557; 92567; 92587

== ENCOUNTER → 2021-09-19 13:57 | Outpatient (BNVA) | payer MEDICAID, SELFPAY | PROVIDERS: PCP Family Medicine; Visit Provider Nurse Practitioner Gerontology | DX: E11.65 Type 2 diabetes mellitus with hyperglycemia (principal); I10 Essential (primary) hypertension; E78.5 Hyperlipidemia, unspecified; D64.9 Anemia, unspecified; E03.9 Hypothyroidism, unspecified; E66.3 Overweight; Z68.25 Body mass index [BMI] 25.0-25.9, adult; Z88.1 Allergy status to other antibiotic agents; Z88.0 Allergy status to penicillin; Z79.4 Long term (current) use of insulin; Z79.899 Other long term (current) drug therapy | CPT/HCPCS: 82947; 99212 ==

== ENCOUNTER → 2022-01-03 09:39 | Outpatient (BNVA) | payer MEDICAID, SELFPAY | PROVIDERS: PCP Family Medicine; Visit Provider Physician Assistant | DX: K21.9 Gastro-esophageal reflux disease without esophagitis (principal); E11.65 Type 2 diabetes mellitus with hyperglycemia | CPT/HCPCS: 99212 ==

== ENCOUNTER 2022-01-10 18:51 | Emergency (ER) | payer MEDICAID, SELFPAY ==
--- NOTE | ~2022-01-10 | XR_ITS ---
EXAMINATION: XR CHEST CLINICAL INFORMATION: Chest pain. COMPARISON: Chest radiograph dated from 03/14/2020. CTA of the chest dated from 03/14/2020. TECHNIQUE: 2 views of the chest were obtained. FINDINGS: Normal appearance of the cardiomediastinal silhouette. No focal airspace opacities, pleural effusions or pneumothorax. No acute osseous abnormalities. The upper abdomen is within normal limits. XR/XR chest 2V IMPRESSION: No acute cardiopulmonary findings.
--- NOTE | ~2022-01-10 | CT_ITS ---
EXAMINATION: CT HEAD WITHOUT CONTRAST CLINICAL INFORMATION: Headache. COMPARISON: CT head 11/05/2019 TECHNIQUE: Contiguous axial imaging was performed from the skull base to vertex without intravenous administration of contrast. Coronal and sagittal reformatted images are performed at the CT scanner. [This CT examination was performed using dose optimization techniques as appropriate, variously including the following: *Automated exposure control *Adjustment of mA and/or kV according to patient size (this includes techniques or standardized protocols for targeted exams where dose is matched to indication/reason for exam; i.e. extremities or head) *Use of iterative reconstruction technique] DLP: 580 mGy-cm. FINDINGS: There is no evidence of acute intracranial hemorrhage or territorial infarction. No abnormal mass-effect or midline shift is seen. [place] to white matter differentiation is well preserved. No extra-axial fluid collections are identified. The ventricles are normal in size. There is no abnormal attenuation within the brain parenchyma. There is no osseous abnormality. The mastoid air cells and visualized portions of the paranasal sinuses are well-aerated. CT/CT head/brain wo con IMPRESSION: No acute intracranial pathology.
[2022-01-10 19:17] VITALS: BP 144/60; PULSE 84; RESP 18; TEMP 36.6; O2SAT 100; BMI 24.9
[2022-01-10 19:31] LABS: MANUAL DIFF FLAG NO
[2022-01-10 19:33] LABS: Basophils Percent Auto 0.4 % (0-2); Eosinophils Absolute Auto 0.1 X10*3/uL (0.0-0.4); Eosinophils Percent Auto 1.7 % (0-4); Hematocrit 36.1 % (37.0-47.0); Hemoglobin 11.7 g/dl (12.0-16.0); Imm Gran Abs Auto 0.02 X10*3/uL (0.00-0.03); Imm Gran Pct Auto 0.2 % (0.0-0.4); Mean Corpuscular HGB Conc 32.4 g/dl (31.0-35.0); Mean Corpuscular Hemoglobin 26.4 pg (27.0-33.0); Mean Corpuscular Volume 81.3 fL (80.0-98.0); Mean Platelet Volume 8.7 fL (9.4-12.3); Monocytes Absolute Auto 0.6 X10*3/uL (0.1-1.2); Monocytes Percent Auto 6.9 % (2-11); Neutrophils Absolute Auto 5.3 x10*3/uL (2.0-8.3); Neutrophils Percent Auto 65.8 % (45-73); Platelet Count 372 X10*3/uL (160-400); Red Blood Count 4.44 X10*6/uL (4.20-5.50); Red Cell Distribution Width 14.2 % (11.0-16.0); White Blood Count 8.1 X10*3/uL (4.8-10.8)
[2022-01-10 19:50] LABS: COVID-19 Test Negative (Negative)
[2022-01-10 19:53] LABS: Alanine Aminotransferase 13 U/L (0-31); Alkaline Phosphatase 78 U/L (39-117); Anion Gap 9 (12-20); Aspartate Amino Transferase 15 U/L (5-31); Bilirubin Total 0.2 mg/dL (0.0-1.0); Blood Urea Nitrogen 16 mg/dL (9-16); Calcium 9.7 mg/dL (8.4-10.2); Carbon Dioxide 31 mmol/L (22-29); Chloride 104 mmol/L (96-108); Creatinine Clr Calc Pharmacy 57.6; Estimated Glomerular Filt Rate 58; Glucose Random 226 mg/dL (60-115); Sodium 140 mmol/L (135-145); Total Protein 6.9 g/dL (6.5-8.0)
--- NOTE | 2022-01-10 20:10 | ED.HA ---
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 Patient states that the pain is worse when she moves her head side to side but not up and down. Patient denies any weakness, numbness, or tingling. Patient states that she had one brief episode of central chest pain yesterday but has not had another episode today. Patient denies any current dizziness, lightheadedness, abdominal pain, nausea, vomiting, fever, chills, blurry vision, double vision, loss of vision, chest pain, difficulty breathing, shortness of breath, back pain, night sweats, vaginal bleeding, vaginal discharge, pain with urination, increased urinary frequency, increased urinary urgency, blood in her urine or stool, syncope or a near syncopal episode, recent trauma or falls, bowel incontinence, bladder incontinence, bowel retention, bladder retention, or any other complaints at this time. MD elicited complaint: headache Treatments prior to arrival: none Related Data Home Medications Medication Instructions Recorded Confirmed ascorbate calcium (vitamin C) 500 500 mg PO DAILY 09/07/20 01/03/22 mg tablet blood glucose control high and low #1 ea 09/07/20 01/03/22 solution (FreeStyle Control) cholecalciferol (vitamin D3) 50 50 mcg PO DAILY 09/07/20 01/03/22 mcg (2,000 unit) capsule Previous Rx's Medication Instructions Recorded pen needle, diabetic 32 gauge x #100 ea 11/02/20 (BD Corin 2nd Gen Pen Needle) hydrocortisone 2.5 % topical cream 1 appl VA BID PRN #30 g 11/09/20 with perineal applicator (Proctozone-HC) sucralfate 100 mg/mL oral 10 ml PO BID #420 ml 03/21/21 suspension (Carafate) pantoprazole 40 mg tablet,delayed 40 mg PO BID #60 tab 07/07/21 release Levoxyl 137 mcg tablet 137 mcg PO DAILY 30 Days #30 tab NS 08/03/21 (levothyroxine) lancets 28 gauge (FreeStyle #100 ea 08/08/21 Lancets) linagliptin 5 mg tablet (Tradjenta) 5 mg PO DAILY 30 Days #30 tab 09/09/21 metformin 1,000 mg tablet 1,000 mg PO BID 30 Days #60 tab 10/24/21 atorvastatin 20 mg tablet 20 mg PO DAILY #30 tab 11/24/21 dapagliflozin 10 mg tablet 10 mg PO DAILY #30 tab 11/24/21 ([facility]) lisinopril 40 mg tablet 40 mg PO DAILY #30 tab 11/24/21 blood sugar diagnostic (FreeStyle #100 ea 12/27/21 Lite Strips) cyclobenzaprine 10 mg tablet 10 mg PO TID PRN 7 Days #21 tab 01/10/22 Allergies Allergy/AdvReac Type Severity Reaction Status Date / Time penicillin V Allergy Unknown hives Verified 01/10/22 19:17 Penicillins [PENICILLINS] Allergy Unknown RASH,DIZZIN Verified 01/10/22 19:17 ESS Review of Systems Constitutional: Constitutional: Reports no additional constitutional complaints, Denies chills, Denies fever(s) and Denies night sweats Eyes: Eyes: Reports no additional eye complaints, Denies blurry vision, Denies change in vision, Denies diplopia, Denies eye discharge, Denies loss of vision and Denies eye pain ENT: Denies dizziness Cardiovascular: Cardiovascular: Reports no additional cardiovascular complaints, Denies chest pain, Denies lightheadedness, Denies Loss of Consciousness and Denies dyspnea Respiratory: Respiratory: Reports no additional respiratory complaints and Denies dyspnea Gastrointestinal: Gastrointestinal: Reports no additional gastrointestinal complaints, Denies abdominal pain, Denies melena, Denies hematochezia, Denies change in bowel habits and Denies change in stool character Genitourinary: Genitourinary: Denies hematuria, Denies urinary frequency, Denies dysuria, Denies urinary incontinence, Denies urinary hesitancy and Denies urinary urgency Musculoskeletal: Musculoskeletal: Reports no additional musculoskeletal complaints, Denies numbness and Denies tingling Comments: right sided neck and arm pain Neurologic: Denies dizziness, Denies loss of vision, Denies numbness and Denies tingling Psychiatric: Psychiatric: Reports no additional psychiatric complaints Endocrine: Endocrine: Reports no additional endocrine complaints Hematologic/Lymphatic: Hematologic/Lymphatic: Reports no additional hematologic/lymphatic complaints Allergic/Immunologic: Allergic/Immunologic: Reports no additional allergic/immunologic complaints [facility] Past Medical History Attestation statement: The following information was validated with the patient. Source: old records reviewed Medical History Acid reflux Diabetes type 2, uncontrolled Dyslipidemia H. 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 Father Diabetes Heart disease Mother Diabetes Hypertension Social History Social History Household Members: Spouse and Children Housing: House Alcohol intake: never Patient Tobacco Use Status: Never used Tobacco Second Hand Smoke Exposure: No Advance Directives: No Advance Directives Information Provided: Yes Current occupational status: disabled Physical Exam Vital Signs: Vital Signs: Last Vital Signs Temp 98.2 F 01/10/22 20:45 Pulse 92 01/10/22 21:53 Resp 16 01/10/22 20:45 BP 156/68 H 01/10/22 21:53 Pulse Ox 100 01/10/22 21:53 BMI result Body Mass Index 24.9 Const: General: cooperative, no acute distress, alert and awake Nutritional Appearance: well nourished Orientation/consciousness: patient oriented x3 Limitations: no limitations HENMT: Head: Yes normal to inspection and Yes atraumatic Ears: hearing grossly normal bilaterally and external ears normal General nose exam: Normal external nose present, no nasal discharge noted and no epistaxis Face and sinus: Yes normal facial exam, No abrasion and No laceration Mouth: Normal oral and palatal mucosa present, no drooling and no muffled voice Eyes: General: appearance normal, both eyes and all related structures Periorbital: periorbital findings normal Eyelids: Yes eyelids normal Conjunctivae: conjunctivae normal Pupils: Equal, round and reactive pupils present EOM: EOMs intact bilaterally Neck: Neck: Yes normal visual inspection, Yes full ROM and Yes no lymphadenopathy Chest: Chest palpation & inspection: normal inspection of the chest Resp: Effort & Inspection: normal respiratory effort and able to speak in complete sentences Auscultation: clear to auscultation bilaterally Cardio: Rate: regular rate Rhythm: regular rhythm GI: Inspection: Yes normal to inspection Neuro: General: patient oriented x3 and moves all extremities Cranial nerves: Yes Equal, round and reactive pupils present Cognition (Neuro): normal cognition Motor exam (neuro): 5/5 motor strength present throughout Sensory Exam: Normal double simultaneous stimulation for sensation Coordination: [id number] test normal Extrem: Other: pain to the right neck, right head, and right arm with movement of her neck. General: Yes normal to inspection, Yes full ROM and Yes capillary refill normal Psych: Appearance: grossly normal Mental Status: mental status grossly normal Affect: normal affect Attitude: cooperative Thought process: Normal thought process present Thought content: Normal thought content present Insight: Good insight present (Psych) NIH Stroke Scale Internal: Initial- Upon Arrival Time: 20:07 Level of Consciousness: Alert Level of Consciousness Questions: Answers both questions correctly Level of Consciousness Commands: Performs both tasks correctly Best Gaze: Normal Visual: No visual loss Facial Palsy: Normal Motor Arm (Right): No drift Motor Arm (Left): No drift Motor Leg (Right): No drift Motor Leg (Left): No drift Limb Ataxia: Absent Sensory: Normal Best Language: No aphasia Dysarthia: Normal Extinction and Inattention: No abnormality Score: 0 MDM - Headache MDM Narrative Medical decision making narrative: Patient is a 61 year old female presenting to the emergency department today with a right sided headache, neck pain, and right arm pain. Patient's physical exam showed increased pain to the right side with side to side movement of her neck but was otherwise normal. Patient's neurological exam was normal. Patient's blood work was unremarkable. Patient's urine showed no acute process. Patient's EKG was unremarkable. Patient's chest x-ray and head CT showed no acute process. I explained my physical exam findings as well as all test results to the patient. I answered all questions asked by the patient. Patient received PO Flexeril which she stated helped her symptoms significantly. I stressed the importance of the patient taking her medication as prescribed. I stressed the importance of the patient following up with her primary care provider and an contact center specialist. I stressed the importance of the patient returning to the emergency department immediately if her symptoms were to worsen or if she were to develop any dizziness, shortness of breath, difficulty breathing, chest pain, blurry vision, loss of vision, nausea, vomiting, abdominal pain, fever, chills, back pain, or any other complaints. Patient verbalized agreement and understanding with this treatment plan and discharge. Differential Diagnosis Differential diagnosis: Likely migraine, tension headache, subarachnoid hemorrhage and headache Medical Records Attestation: I reviewed the patient's medical records. Lab Data Attestation: I reviewed the patient's lab results. Result diagrams: 01/10/22 19:26 01/10/22 19: Labs: Lab Results 01/10/22 01/10/22 01/10/22 Range/Units 19:26 19: 19: WBC 8.1 (4.8-10.8) X10*3/uL RBC 4.44 (4.20-5.50) X10*6/uL Hgb 11.7 L (12.0-16.0) g/dl Hct 36.1 L (37.0-47.0) % MCV 81.3 (80.0-98.0) fL MCH 26.4 L (27.0-33.0) pg MCHC 32.4 (31.0-35.0) g/dl RDW 14.2 (11.0-16.0) % Plt Count 372 (160-400) X10*3/uL MPV 8.7 L (9.4-12.3) fL Immature Gran % (Auto) 0.2 (0.0-0.4) % Neut % (Auto) 65.8 (45-73) % Lymph % (Auto) 25.0 (20-40) % [place] % (Auto) 6.9 (2-11) % Eos % (Auto) 1.7 (0-4) % Baso % (Auto) 0.4 (0-2) % Lymph # (Auto) 2.0 (1.2-4.9) X10*3/uL [place] # (Auto) 0.6 (0.1-1.2) X10*3/uL Eos # (Auto) 0.1 (0.0-0.4) X10*3/uL Baso # (Auto) 0.0 (0.0-0.2) X10*3/uL Abs Immat Gran (auto) 0.02 (0.00-0.03) X10*3/uL Absolute Neuts (auto) 5.3 (2.0-8.3) x10*3/uL Absolute Nucleated RBC 0.000 (0.0-0.012) X10*3/uL Nucleated RBC % (auto) 0.0 (0.0-0.2) /100WBC Sodium 140 (135-145) mmol/L Potassium 4.0 (3.3-5.1) mmol/L Chloride 104 (96-108) mmol/L Carbon Dioxide 31 H (22-29) mmol/L Anion Gap 9 L (12-20) BUN 16 (9-16) mg/dL Creatinine 0.98 (0.5-1.4) mg/dL Estim Creat Clear Calc 57.6 Estimated GFR 58 Random Glucose 226 H (60-115) mg/dL Calcium 9.7 (8.4-10.2) mg/dL Total Bilirubin 0.2 (0.0-1.0) mg/dL AST 15 (5-31) U/L ALT 13 (0-31) U/L Alkaline Phosphatase 78 (39-117) U/L Troponin I High Sens (<3.5-17.0) ng/L Total Protein 6.9 (6.5-8.0) g/dL Albumin 4.0 (3.5-5.0) g/dL COVID-19 (SRINIVASAN) Negative (Negative) COVID-19 Clin Com See Note 01/10/22 Range/Units 21:11 WBC (4.8-10.8) X10*3/uL RBC (4.20-5.50) X10*6/uL Hgb (12.0-16.0) g/dl Hct (37.0-47.0) % MCV (80.0-98.0) fL MCH (27.0-33.0) pg MCHC (31.0-35.0) g/dl RDW (11.0-16.0) % Plt Count (160-400) X10*3/uL MPV (9.4-12.3) fL Immature Gran % (Auto) (0.0-0.4) % Neut % (Auto) (45-73) % Lymph % (Auto) (20-40) % [place] % (Auto) (2-11) % Eos % (Auto) (0-4) % Baso % (Auto) (0-2) % Lymph # (Auto) (1.2-4.9) X10*3/uL [place] # (Auto) (0.1-1.2) X10*3/uL Eos # (Auto) (0.0-0.4) X10*3/uL Baso # (Auto) (0.0-0.2) X10*3/uL Abs Immat Gran (auto) (0.00-0.03) X10*3/uL Absolute Neuts (auto) (2.0-8.3) x10*3/uL Absolute Nucleated RBC (0.0-0.012) X10*3/uL Nucleated RBC % (auto) (0.0-0.2) /100WBC Sodium (135-145) mmol/L Potassium (3.3-5.1) mmol/L Chloride (96-108) mmol/L Carbon Dioxide (22-29) mmol/L Anion Gap (12-20) BUN (9-16) mg/dL Creatinine (0.5-1.4) mg/dL Estim Creat Clear Calc Estimated GFR Random Glucose (60-115) mg/dL Calcium (8.4-10.2) mg/dL Total Bilirubin (0.0-1.0) mg/dL AST (5-31) U/L ALT (0-31) U/L Alkaline Phosphatase (39-117) U/L Troponin I High Sens < 3.5 (<3.5-17.0) ng/L Total Protein (6.5-8.0) g/dL Albumin (3.5-5.0) g/dL COVID-19 (SRINIVASAN) (Negative) COVID-19 Clin Com Imaging Data CT scan - head: Attestation: I personally reviewed and interpreted this imaging study as follows: Radiologist's impression: EXAMINATION: CT HEAD WITHOUT CONTRAST CLINICAL INFORMATION: Headache. COMPARISON: CT head 11/05/2019 TECHNIQUE: Contiguous axial imaging was performed from the skull base to vertex without intravenous administration of contrast. Coronal and sagittal reformatted images are performed at the CT scanner. [This CT examination was performed using dose optimization techniques as appropriate, variously including the following: *Automated exposure control *Adjustment of mA and/or kV according to patient size (this includes techniques or standardized protocols for targeted exams where dose is matched to indication/reason for exam; i.e. extremities or head) *Use of iterative reconstruction technique] DLP: 580 mGy-cm. FINDINGS: There is no evidence of acute intracranial hemorrhage or territorial infarction. No abnormal mass-effect or midline shift is seen. [place] to white matter differentiation is well preserved. No extra-axial fluid collections are identified. The ventricles are normal in size. There is no abnormal attenuation within the brain parenchyma. There is no osseous abnormality. The mastoid air cells and visualized portions of the paranasal sinuses are well-aerated. CT/CT head/brain wo con IMPRESSION: No acute intracranial pathology. Dictated By: CORNELIA MELTON MD Signed By: Electronically signed by CORNELIA MELTON MD 01/10/222124 Chest x-ray: Attestation: I personally reviewed and interpreted this imaging study as follows: Radiologist's impression: EXAMINATION: XR CHEST CLINICAL INFORMATION: Chest pain. COMPARISON: Chest radiograph dated from 03/14/2020. CTA of the chest dated from 03/14/2020. TECHNIQUE: 2 views of the chest were obtained. FINDINGS: Normal appearance of the cardiomediastinal silhouette. No focal airspace opacities, pleural effusions or pneumothorax. No acute osseous abnormalities. The upper abdomen is within normal limits. XR/XR chest 2V IMPRESSION: No acute cardiopulmonary findings. Dictated By: Olga Murdock Signed By: Electronically signed by Pinky Murdock 01/10/222131 Discharge Plan Discharge Clinical Impression: Cervical radiculopathy Patient Disposition: Home, Self-Care Additional Instructions: Call to schedule a follow up appointment with an Orthopedic provider. Follow up with your primary care provider. Return to the emergency department immediately if your symptoms worsen or if you develop any dizziness, shortness of breath, difficulty breathing, chest pain, blurry vision, loss of vision, nausea, vomiting, abdominal pain, fever, chills, back pain, or any other complaints. Prescriptions: New cyclobenzaprine 10 mg tablet 10 mg PO TID PRN (Reason: cervical radiculopathy) 7 Days Qty: 21 0RF No Action (DME) pen needle, diabetic [BD Corin 2nd Gen Pen Needle] 32 gauge x 5/32 needle See Rx Instructions .MEDSUPPLY Qty: 100 4RF Rx Instructions: once a day hydrocortisone [Proctozone-HC] 2.5 % cream with perineal applicator 1 appl VA BID PRN (Reason: hemorrhoids) Qty: 30 3RF Rx Instructions: apply VA BID prn pantoprazole 40 mg tablet,delayed release (DR/EC) 40 mg PO BID Qty: 60 2RF levothyroxine [Levoxyl] 137 mcg tablet 137 mcg PO DAILY 30 Days Qty: 30 11RF (DME) lancets [FreeStyle Lancets] 28 gauge misc See Rx Instructions .ROUTE .MEDSUPPLY Qty: 100 6RF Rx Instructions: As directed three times a day Tradjenta 5 mg tablet 5 mg PO DAILY 30 Days Qty: 30 4RF metformin 1,000 mg tablet 1,000 mg PO BID 30 Days Qty: 60 4RF Farxiga 10 mg tablet 10 mg PO DAILY Qty: 30 6RF lisinopril 40 mg tablet 40 mg PO DAILY Qty: 30 6RF atorvastatin 20 mg tablet 20 mg PO DAILY Qty: 30 6RF (DME) FreeStyle Lite Strips Strip See Rx Instructions .ROUTE .MEDSUPPLY Qty: 100 5RF Rx Instructions: 3 times a day cholecalciferol (vitamin D3) 50 mcg (2,000 unit) capsule 50 mcg PO DAILY 0RF ascorbate calcium (vitamin C) 500 mg tablet 500 mg PO DAILY 0RF (DME) FreeStyle Control Solution See Rx Instructions .ROUTE .MEDSUPPLY Qty: 1 0RF Rx Instructions: As directed sucralfate [Carafate] 100 mg/mL suspension 10 ml PO BID Qty: 420 0RF Referrals: Xavier Lilly MD [Physician] - 2 days Interventions: ED Discharge Assessment Last Done: 01/10/22 22:13 Discharge Date/Time: 01/10/22 22:15 Print Language: Hong Konger
--- NOTE | 2022-01-10 20:27 | ECG_ITS ---
Test Reason : CP Blood Pressure : / mmHG Vent. Rate : 091 BPM Atrial Rate : 091 BPM P-R Int : 132 ms QRS Dur : 076 ms QT Int : 340 ms P-R-T Axes : 066 026 031 degrees QTc Int : 418 ms Normal sinus rhythm Nonspecific ST and T wave abnormality Abnormal ECG When compared with ECG of 27-APR-2020 03:58, Nonspecific T wave abnormality now evident in Inferior leads Nonspecific T wave abnormality now evident in Lateral leads Referred By: Hiral Isbell Electronically Signed By:CAROLINA HOYT MD
[2022-01-10 20:45] VITALS: BP 173/78; PULSE 89; RESP 16; TEMP 36.8; O2SAT 98
[2022-01-10 21:35] LABS: Troponin-I High Sensitivity < 3.5 ng/L (<3.5-17.0)
[2022-01-10 21:53] VITALS: BP 156/68; PULSE 92; O2SAT 100
[2022-01-10] MEDS: Cyclobenzaprine HCl 10 MG TABLET PO (22:02)
== END 2022-01-10 22:15 | disposition home or self-care (01) ==
PROVIDERS: Physician Assistant Medical; Emergency Provider Emergency Medicine Emergency Medical Services
DX: M54.12 Radiculopathy, cervical region (principal); R51.9 Headache, unspecified; Z20.822 Contact with and (suspected) exposure to COVID-19; E11.9 Type 2 diabetes mellitus without complications; I10 Essential (primary) hypertension; Z79.4 Long term (current) use of insulin
CPT/HCPCS: 36415; 70450; 71046; 80053; 84484; 85025; 87635; 93005; 99284

== ENCOUNTER → 2022-01-23 11:31 | Outpatient (BNVA) | payer MEDICAID, SELFPAY | PROVIDERS: Visit Provider Nurse Practitioner Gerontology | DX: E11.65 Type 2 diabetes mellitus with hyperglycemia (principal); E78.5 Hyperlipidemia, unspecified; E03.9 Hypothyroidism, unspecified; I10 Essential (primary) hypertension; Z79.4 Long term (current) use of insulin | CPT/HCPCS: 36415; 82947; 83036; 84439; 84443; 86376; 86800; 99212 ==

== ENCOUNTER 2022-01-23 12:32 | Outpatient (REF) | payer MEDICAID, SELFPAY ==
[2022-01-23 14:46] LABS: Free T4 (Free Thyroxine) 1.16 ng/dL (0.71-1.85); Thyroid Stimulating Hormone 1.57 uIU/mL (0.32-4.0)
[2022-01-24 19:37] LABS: Thyroglobulin Antibodies <1 IU/mL (< or = 1); Thyroid Peroxidase Antibodies 1 IU/mL (<9)
== END 2022-01-23 12:33 | disposition home or self-care (01) ==
LOC: HO.10HDL 12:32
PROVIDERS: Visit Provider Nurse Practitioner Gerontology
DX: E11.65 Type 2 diabetes mellitus with hyperglycemia (principal); E03.9 Hypothyroidism, unspecified; E78.5 Hyperlipidemia, unspecified; I10 Essential (primary) hypertension; Z79.4 Long term (current) use of insulin
CPT/HCPCS: 36415; 84439; 84443; 86376; 86800

== ENCOUNTER → 2022-02-13 08:04 | Outpatient (REF) | payer MEDICAID, SELFPAY ==
--- NOTE | ~2022-02-13 | NM_ITS ---
EXAMINATION: RADIONUCLIDE SOLID FOOD GASTRIC EMPTYING 4-HOUR STUDY CLINICAL INFORMATION: GERD, type 2 diabetes mellitus, vomiting, abdominal pain and nausea. COMPARISON: No previous gastric emptying study is available for comparison. TECHNIQUE: A standard meal consisting of 4 oz of Egg Beaters brand tagged with 120 microcuries Tc-99m Sulfur Colloid, 8 oz water and 2 slices of toast with jelly was administered orally to the patient. Images were obtained using a dual head gamma camera in the anterior and posterior projections over of the stomach immediately post ingestion and at hourly intervals up to 3 hours post ingestion. Images were not obtained at 4 hours due to the minimal retention at 3 hours. The anterior and posterior counts at each time interval were averaged using the geometric mean and expressed as percentage of the immediate post ingestion counts. FINDINGS: There is good visualization of activity in the stomach immediately post ingestion. As the study progresses, there is good clearance of activity from the stomach and visualization of progressively increasing small bowel activity. By the end of the study, there is almost no retention noted in the stomach. Retention in the stomach at each time interval was: 1 hour 68% (normal 37%-90%) 2 hours 9% (normal 30%-60%) 3 hours 3% 4 hours (Not Obtained) (normal 0%-10%) NM/NM gastric emptying study IMPRESSION: Normal solid food gastric emptying study.
== END ==
LOC: HO.NUCMED 08:04
PROVIDERS: Visit Provider Physician Assistant
DX: K21.9 Gastro-esophageal reflux disease without esophagitis (principal)
CPT/HCPCS: 78264; A9541

== ENCOUNTER → 2022-02-21 08:03 | Outpatient (BNVA) | payer MEDICAID, SELFPAY | PROVIDERS: PCP Nurse Practitioner Family; Referring Provider Nurse Practitioner Family; Visit Provider Physician Assistant | DX: K21.9 Gastro-esophageal reflux disease without esophagitis (principal); K59.00 Constipation, unspecified | CPT/HCPCS: 99212 ==

== ENCOUNTER 2022-03-17 18:32 | Emergency (ER) | payer MEDICAID, SELFPAY ==
[2022-03-17 18:37] VITALS: BP 173/90; PULSE 92; RESP 18; TEMP 36.1; O2SAT 98; BMI 24.2
[2022-03-17 19:51] LABS: MANUAL DIFF FLAG NO
[2022-03-17 19:53] LABS: Basophils Percent Auto 0.4 % (0-2); Eosinophils Absolute Auto 0.2 X10*3/uL (0.0-0.4); Eosinophils Percent Auto 2.2 % (0-4); Hematocrit 37.4 % (37.0-47.0); Hemoglobin 12.2 g/dl (12.0-16.0); Imm Gran Abs Auto 0.02 X10*3/uL (0.00-0.03); Imm Gran Pct Auto 0.2 % (0.0-0.4); Lymphocytes Absolute Auto 2.7 X10*3/uL (1.2-4.9); Lymphocytes Percent Auto 28.8 % (20-40); Mean Corpuscular HGB Conc 32.6 g/dl (31.0-35.0); Mean Corpuscular Hemoglobin 26.2 pg (27.0-33.0); Mean Corpuscular Volume 80.4 fL (80.0-98.0); Mean Platelet Volume 8.7 fL (9.4-12.3); Monocytes Absolute Auto 0.7 X10*3/uL (0.1-1.2); Monocytes Percent Auto 7.1 % (2-11); Neutrophils Absolute Auto 5.8 x10*3/uL (2.0-8.3); Neutrophils Percent Auto 61.3 % (45-73); Platelet Count 476 X10*3/uL (160-400); Red Blood Count 4.65 X10*6/uL (4.20-5.50); Red Cell Distribution Width 13.8 % (11.0-16.0); White Blood Count 9.5 X10*3/uL (4.8-10.8)
[2022-03-17 19:59] LABS: Prothrombin Time 11.5 SEC (9.9-13.0)
[2022-03-17 20:02] LABS: Partial Thromboplastin Time 37.8 SEC (24.1-38.0)
[2022-03-17 20:07] LABS: Alanine Aminotransferase 19 U/L (0-31); Albumin Level 4.1 g/dL (3.5-5.0); Alkaline Phosphatase 84 U/L (39-117); Anion Gap 12 (12-20); Aspartate Amino Transferase 20 U/L (5-31); Bilirubin Total 0.3 mg/dL (0.0-1.0); Blood Urea Nitrogen 14 mg/dL (9-16); Carbon Dioxide 31 mmol/L (22-29); Chloride 104 mmol/L (96-108); Creatinine Clr Calc Pharmacy 67.5; Estimated Glomerular Filt Rate > 60; Glucose Random 148 mg/dL (60-115); Potassium 4.5 mmol/L (3.3-5.1); Sodium 142 mmol/L (135-145); Total Protein 7.3 g/dL (6.5-8.0)
--- NOTE | 2022-03-17 21:07 | ED_ITS ---
HPI - General Adult General Chief complaint: Extremity Problem Stated complaint: Leg bruising/pain no inj Time Seen by Provider: 03/17/22 20:59 Source: patient Mode of arrival: ambulatory Limitations: no limitations History of Present Illness HPI narrative: Patient comes to the emergency room complaining of noticing a bruise in her right calf this morning. The bruise is approximately 2 x 2 cm. Nonpainful. Patient states that she does not remember injuring her calf. Patient states she got concerned because people told her that he could be a blood clot. Patient does not have any symptoms. Related Data Home Medications Medication Instructions Recorded Confirmed ascorbate calcium (vitamin C) 500 500 mg PO DAILY 09/07/20 01/24/22 mg tablet blood glucose control high and low #1 ea 09/07/20 01/24/22 solution (FreeStyle Control) cholecalciferol (vitamin D3) 50 50 mcg PO DAILY 09/07/20 01/24/22 mcg (2,000 unit) capsule Previous Rx's Medication Instructions Recorded pen needle, diabetic 32 gauge x #100 ea 11/02/20 (BD Corin 2nd Gen Pen Needle) hydrocortisone 2.5 % topical cream 1 appl [place] BID PRN #30 g 11/09/20 with perineal applicator (Proctozone-HC) sucralfate 100 mg/mL oral 10 ml PO BID #420 ml 03/21/21 suspension (Carafate) Levoxyl 137 mcg tablet 137 mcg PO DAILY 30 Days #30 tab NS 08/03/21 (levothyroxine) lancets 28 gauge (FreeStyle #100 ea 08/08/21 Lancets) atorvastatin 20 mg tablet 20 mg PO DAILY #30 tab 11/24/21 dapagliflozin 10 mg tablet 10 mg PO DAILY #30 tab 11/24/21 (Farxiga) lisinopril 40 mg tablet 40 mg PO DAILY #30 tab 11/24/21 blood sugar diagnostic (FreeStyle #100 ea 12/27/21 Lite Strips) cyclobenzaprine 10 mg tablet 10 mg PO TID PRN 7 Days #21 tab 01/10/22 linagliptin 5 mg tablet (Tradjenta) 5 mg PO DAILY 30 Days #30 tab 01/18/22 insulin glargine 100 unit/mL (3 8 unit (0.08 mL) SUBCUT QPM #15 ml 01/23/22 mL) subcutaneous pen (Lantus Solostar U-100 Insulin) pen needle, diabetic 32 gauge x #100 ea 01/23/22 (BD Ultra-Fine Corin Pen Needle) pantoprazole 40 mg tablet,delayed 40 mg PO BID #60 tab 02/21/22 release metformin 1,000 mg tablet 1,000 mg PO BID 30 Days #60 tab 03/15/22 Allergies Allergy/AdvReac Type Severity Reaction Status Date / Time penicillin V Allergy Unknown hives Verified 01/24/22 13:15 Penicillins [PENICILLINS] Allergy Unknown RASH,DIZZIN Verified 01/24/22 13:15 ESS Review of Systems Review of Systems: Constitutional : No Weight loss, No Fever, No Chills, No Night Sweats, No Fatigue, No Malaise ENT/Mouth : No Hearing loss, No Ear Pain, No Nasal Congestion, No Sinus Pain, No Hoarseness, No sore throat, No Rhinorrhea, No Swallowing Difficulty Eyes: No Eye Pain, No Swelling, No Redness, No Foreign Body, No Discharge, No V ision Changes Cardiovascular : No Chest Pain, No SOB, No Dyspnea on Exertion, No Orthopnea, No Edema, No Palpitations Respiratory : No Cough, No Sputum, No Wheezing, No Smoke Exposure, No Dyspnea Gastrointestinal : No Nausea, No Vomiting, No Diarrhea, No Constipation, No abdominal Pain, No Hematochezia, No Melena Genitourinary : no irregular bleeding, No Dysuria, No Urinary Frequency, No Hematuria, No Urinary Incontinence, No Urgency, No Flank Pain, No Urinary Flow Changes, No Hesitancy Musculoskeletal : No joint pain, No Myalgias, No Joint Swelling Skin : No Skin Lesions, easy bruising Neuro : No Weakness, No Numbness, No Paresthesias, No Loss of Consciousness, No Dizziness, No Headache Psych : No Anxiety/Panic, No Depression, No SI/HI/AH/VH, No Social Issues, Heme/Lymph: Easy bruising, No Bleeding,No Lymphadenopathy Endocrine : No Polyuria, No Polydipsia, No Temperature Intolerance PMFSH Past Medical History Medical History Acid reflux Diabetes type 2, uncontrolled Dyslipidemia H. pylori infection Hypertension Hypothyroidism [facility] (current) use of insulin Overweight (BMI 25.0-29.9) Surgical History Hx of cholecystectomy Hx of tubal ligation Family History Family History Unknown No problems noted. 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 Oriented X3. No acute distress. Eyes: Pupils equal, round and reactive to light. ENT: Pharynx normal. Neck: Normal inspection. Neck supple. No lymph nodes noted. No crepitus CVS: Normal heart rate and rhythm. Pulses normal. Normal S1 and S2 Respiratory: No respiratory distress. Breath sounds normal. No Wheezing. No rales Abdomen: Soft and nontender. No rigidity. No distention. Skin: Skin warm and dry. Normal skin color. Normal skin turgor. See below Extremities: No lower extremity edema. Patient has a 2 cm x 2 cm circular ecchymosis in the left calf. Nontender, no petechia, no bruising anywhere else. Neuro: Oriented X 3. No motor deficit. No sensory deficit. Moving all extremities. No slurred speech. CN 2 through 12 grossly intact Psych: calm, cooperative, normal affect Course Course Course Narrative: Hemoglobin, hematocrit, platelets, PT, PTT, INR all within normal limits. At this time, patient has only 1 small bruise which is nonpainful, I discussed with the patient that DVTs are not suspected. Also, hematology and coagulation labs are all normal. Medical Decision Making Lab Data Result diagrams: 03/17/22 19:46 03/17/22 19:46 Labs: Lab Results 03/17/22 03/17/22 03/17/22 Range/Units 19:46 19:46 19:46 WBC 9.5 (4.8-10.8) X10*3/uL RBC 4.65 (4.20-5.50) X10*6/uL Hgb 12.2 (12.0-16.0) g/dl Hct 37.4 (37.0-47.0) % MCV 80.4 (80.0-98.0) fL MCH 26.2 L (27.0-33.0) pg MCHC 32.6 (31.0-35.0) g/dl RDW 13.8 (11.0-16.0) % Plt Count 476 H (160-400) X10*3/uL MPV 8.7 L (9.4-12.3) fL Immature Gran % (Auto) 0.2 (0.0-0.4) % Neut % (Auto) 61.3 (45-73) % Lymph % (Auto) 28.8 (20-40) % Churchill % (Auto) 7.1 (2-11) % Eos % (Auto) 2.2 (0-4) % Baso % (Auto) 0.4 (0-2) % Lymph # (Auto) 2.7 (1.2-4.9) X10*3/uL Churchill # (Auto) 0.7 (0.1-1.2) X10*3/uL Eos # (Auto) 0.2 (0.0-0.4) X10*3/uL Baso # (Auto) 0.0 (0.0-0.2) X10*3/uL Abs Immat Gran (auto) 0.02 (0.00-0.03) X10*3/uL Absolute Neuts (auto) 5.8 (2.0-8.3) x10*3/uL Absolute Nucleated RBC 0.000 (0.0-0.012) X10*3/uL Nucleated RBC % (auto) 0.0 (0.0-0.2) /100WBC PT 11.5 (9.9-13.0) SEC INR 1.0 (0.9-1.1) APTT 37.8 (24.1-38.0) SEC Sodium 142 (135-145) mmol/L Potassium 4.5 (3.3-5.1) mmol/L Chloride 104 (96-108) mmol/L Carbon Dioxide 31 H (22-29) mmol/L Anion Gap 12 (12-20) BUN 14 (9-16) mg/dL Creatinine 0.84 (0.5-1.4) mg/dL Estim Creat Clear Calc 67.5 Estimated GFR > 60 Random Glucose 148 H (60-115) mg/dL Calcium 10.0 (8.4-10.2) mg/dL Total Bilirubin 0.3 (0.0-1.0) mg/dL AST 20 (5-31) U/L ALT 19 (0-31) U/L Alkaline Phosphatase 84 (39-117) U/L Total Protein 7.3 (6.5-8.0) g/dL Albumin 4.1 (3.5-5.0) g/dL Discharge Plan Discharge Clinical Impression: Ecchymosis Patient Disposition: Home, Self-Care Instructions: Ecchymosis (ED) Additional Instructions: Please follow-up with your primary care physician tomorrow. If you have any worsening or new symptoms, please return to the emergency room or call 911 Prescriptions: No Action (DME) pen needle, diabetic [BD Corin 2nd Gen Pen Needle] 32 gauge x 5/32 needle See Rx Instructions .MEDSUPPLY Qty: 100 4RF Rx Instructions: once a day hydrocortisone [Proctozone-HC] 2.5 % cream with perineal applicator 1 appl [place] BID PRN (Reason: hemorrhoids) Qty: 30 3RF Rx Instructions: apply KY BID prn levothyroxine [Levoxyl] 137 mcg tablet 137 mcg PO DAILY 30 Days Qty: 30 11RF (DME) lancets [FreeStyle Lancets] 28 gauge misc See Rx Instructions .ROUTE .MEDSUPPLY Qty: 100 6RF Rx Instructions: As directed three times a day Farxiga 10 mg tablet 10 mg PO DAILY Qty: 30 6RF lisinopril 40 mg tablet 40 mg PO DAILY Qty: 30 6RF atorvastatin 20 mg tablet 20 mg PO DAILY Qty: 30 6RF (DME) FreeStyle Lite Strips Strip See Rx Instructions .ROUTE .MEDSUPPLY Qty: 100 5RF Rx Instructions: 3 times a day Tradjenta 5 mg tablet 5 mg PO DAILY 30 Days Qty: 30 4RF metformin 1,000 mg tablet 1,000 mg PO BID 30 Days Qty: 60 4RF cyclobenzaprine 10 mg tablet 10 mg PO TID PRN (Reason: cervical radiculopathy) 7 Days Qty: 21 0RF cholecalciferol (vitamin D3) 50 mcg (2,000 unit) capsule 50 mcg PO DAILY 0RF ascorbate calcium (vitamin C) 500 mg tablet 500 mg PO DAILY 0RF (DME) FreeStyle Control Solution See Rx Instructions .ROUTE .MEDSUPPLY Qty: 1 0RF Rx Instructions: As directed sucralfate [Carafate] 100 mg/mL suspension 10 ml PO BID Qty: 420 0RF Lantus Solostar U-100 Insulin 100 unit/mL (3 mL) insulin pen 8 unit subcut QPM Qty: 15 1RF (DME) pen needle, diabetic [BD Ultra-Fine Corin Pen Needle] 32 gauge x 5/32 ne edle See Rx Instructions .ROUTE .MEDSUPPLY Qty: 100 3RF Rx Instructions: As directed once daily pantoprazole 40 mg tablet,delayed release (DR/EC) 40 mg PO BID Qty: 60 3RF
[2022-03-17 21:18] VITALS: BP 127/57; PULSE 75; RESP 16; TEMP 36.3; O2SAT 99
== END 2022-03-17 21:54 | disposition home or self-care (01) ==
PROVIDERS: Emergency Provider Emergency Medicine
DX: S80.11XA Contusion of right lower leg, initial encounter (principal); M79.604 Pain in right leg; X58.XXXA Exposure to other specified factors, initial encounter; Y93.9 Activity, unspecified; Y92.9 Unspecified place or not applicable; Y99.9 Unspecified external cause status
CPT/HCPCS: 36415; 80053; 85025; 85610; 85730; 99283; 99284

== ENCOUNTER 2022-04-10 09:19 | Outpatient (REF) | payer MEDICAID, SELFPAY ==
[2022-04-10 16:54] LABS: CT PCR NOT DETECTED (Not Detect.); NG PCR NOT DETECTED (Not Detect.)
[2022-04-11 13:17] LABS: BV Int Neg Control Negative (Negative); BV Int Pos Control Positive (Positive)
== END 2022-04-10 09:20 | disposition home or self-care (01) ==
LOC: HO.LAB 09:19
PROVIDERS: Visit Provider Advanced Practice Midwife
DX: Z01.411 Encounter for gynecological examination (general) (routine) with abnormal findings (principal); N95.1 Menopausal and female climacteric states
CPT/HCPCS: 87480; 87491; 87510; 87591; 87660

== ENCOUNTER → 2022-04-18 10:49 | Outpatient (BNVA) | payer MEDICAID, SELFPAY | PROVIDERS: Visit Provider Nurse Practitioner Gerontology | DX: E11.65 Type 2 diabetes mellitus with hyperglycemia (principal); E03.9 Hypothyroidism, unspecified; I10 Essential (primary) hypertension; E78.5 Hyperlipidemia, unspecified; Z79.4 Long term (current) use of insulin; Z79.899 Other long term (current) drug therapy | CPT/HCPCS: 82947; 83036; 99212 ==

== ENCOUNTER → 2022-05-23 09:46 | Outpatient (BNVA) | payer MEDICAID, SELFPAY | PROVIDERS: Referring Provider Nurse Practitioner Family; Visit Provider Physician Assistant | DX: R10.11 Right upper quadrant pain (principal); K21.9 Gastro-esophageal reflux disease without esophagitis; K59.00 Constipation, unspecified | CPT/HCPCS: 99212 ==

== ENCOUNTER → 2022-06-02 10:28 | Outpatient (RCR) | payer MEDICAID, SELFPAY ==
--- NOTE | 2020-11-29 12:21 | MHC.PT.EP ---
[facility] [place] Office [place] [facility] [place] Office [address] [phone] F: [phone] F: [phone] F: [phone] F: [phone] Physical Therapy Plan of Care Date of Evaluation: 11/29/20 Date of Surgery: Diagnosis: right shoulder pain. Assessment: The patient reports right shoulder pain that began one year ago after a fall. Pt has reduced shoulder ROM, and reduced cervical mobility to the right. She has reduced shoulder strength on the right side as well. The patient had most limitation with the c6-7 myotome. We will do gentle ROM, strength, and functional strengthening exercises to help her return to PLOF. Frequency and Duration: The patient will be seen 2x/week for 4 weeks Short Term Goals: Pt to have full PROM shoulder flexion and abduction compared to bilateral side. 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 Pt to have all functional shoulder AROM to return to functional reaching. 2. PT to have all functional strength necessary to return to personal hygiene and house chores and ADL's. 3. Pt to have no pain at night with sleeping. Treatment Plan: Modalities to reduce pain, spasms and effusion. Manual therapy to restore motion and function. Therapeutic exercise to improve strength and flexibility. Neuromuscular re-education for posture and balance. Therapeutic activities to return to functional activities of daily living. Electronically signed by: Osiris Watts PT DPT Please sign and return to therapist. Thank you for your referral.
== END | disposition home or self-care (01) ==
LOC: HO.PT 11-29 09:52
PROVIDERS: PCP Family Medicine; Visit Provider Orthopaedic Surgery
DX: S46.911D Strain of unspecified muscle, fascia and tendon at shoulder and upper arm level, right arm, subsequent encounter (principal)
CPT/HCPCS: 97110; 97112; 97140; 97162

== ENCOUNTER 2022-07-11 08:29 | Outpatient (REF) | payer MEDICAID, SELFPAY ==
--- NOTE | ~2022-07-11 | US_ITS ---
EXAMINATION: US ABDOMEN COMPLETE CLINICAL INFORMATION: Right upper quadrant pain. COMPARISON: Renal ultrasound 08/14/2019. CT abdomen and pelvis 01/22/2019. TECHNIQUE: Real-time imaging of the abdominal viscera. FINDINGS: PANCREAS: Normal. ABDOMINAL AORTA: The proximal, mid, and distal segments are normal in caliber. INFERIOR VENA CAVA: Visualized portions are normal. LIVER: There is calcification seen in the right hepatic lobe measuring 0.7 x 0.6 x 0.7 cm visualized previously on the CT abdomen exam 03/14/2020. The liver is normal in size. The liver contour is normal. Parenchymal echogenicity is normal. No focal hepatic lesion. There is no intrahepatic biliary duct dilatation seen. GALLBLADDER: Surgically absent. COMMON BILE DUCT: Normal in caliber measuring 0.8 cm in diameter. RIGHT KIDNEY: There is mild pelvic fullness and hydroureter. No renal calculi or focal parenchymal lesions. The kidney measures 10.8 cm in maximum dimension. LEFT KIDNEY: There is mild pelvic fullness. No renal calculi or focal parenchymal lesions. The kidney measures 10.5 cm in maximum dimension. SPLEEN: Normal. The spleen measures 7.9 cm in maximum dimension. BLADDER: There are bilateral ureteral jets seen. No bladder wall thickening or intraluminal filling defect. Bladder was imaged due to bilateral renal pelvic fullness. FREE FLUID: None. US/US abdomen complete IMPRESSION: Small calcification in the right hepatic lobe concordant with CT findings from 2018. Otherwise liver is unremarkable. Mild bilateral renal pelvic fullness and mild right hydroureter but no abnormality seen in the bladder.
== END 2022-07-11 08:30 | disposition home or self-care (01) ==
LOC: HO.US 08:29
PROVIDERS: Visit Provider Physician Assistant
DX: R10.11 Right upper quadrant pain (principal)
CPT/HCPCS: 76700

== ENCOUNTER → 2022-07-18 09:44 | Outpatient (BNVA) | payer MEDICAID, SELFPAY | PROVIDERS: PCP Nurse Practitioner Family; Visit Provider Physician Assistant | DX: R10.11 Right upper quadrant pain (principal); K21.9 Gastro-esophageal reflux disease without esophagitis | CPT/HCPCS: 99212 ==

== ENCOUNTER 2022-10-05 09:52 | Outpatient (REF) | payer MEDICAID, SELFPAY ==
--- NOTE | ~2022-10-05 | MM_ITS ---
EXAMINATION: MM SCREENING DIGITAL BREAST TOMOSYNTHESIS, BILATERAL CLINICAL INFORMATION: Screening. Asymptomatic. COMPARISON: Mammography: June 30, 2021 and studies dating back to April 07, 2014 TECHNIQUE: Digital breast tomosynthesis is performed in both the craniocaudal and mediolateral oblique views along with computer-aided detection (CAD). Synthesized 2D images are generated from the tomosynthesis. FINDINGS: There are scattered areas of fibroglandular density (ACR BI-RADS breast composition Category b). There are no significant masses, abnormal calcifications, or other abnormalities. MM/MM tomosynthesis screening BI IMPRESSION: No significant changes from prior exam. ASSESSMENT: BI-RADS 1: Negative RECOMMENDATION: Routine annual mammography screening. This patient's information was entered into a reminder system with a target due date for their next mammogram.
== END 2022-10-05 09:53 | disposition home or self-care (01) ==
LOC: HO.MAMMO 09:52
PROVIDERS: PCP Registered Nurse; Visit Provider Registered Nurse
DX: Z12.31 Encounter for screening mammogram for malignant neoplasm of breast (principal)
CPT/HCPCS: 77063; 77067

== ENCOUNTER 2022-11-15 10:57 | Outpatient (REF) | payer MEDICAID, SELFPAY ==
--- NOTE | ~2022-11-15 | XR_ITS ---
EXAMINATION: XR CHEST CLINICAL INFORMATION: Chest pain COMPARISON: January 10, 2022 TECHNIQUE: 2 views of the chest were obtained. FINDINGS: There is no evidence of acute parenchymal disease, pneumothorax, or pleural effusion. Heart normal size. No evidence of pulmonary edema. XR/XR chest 2V IMPRESSION: No acute disease.
== END 2022-11-15 10:58 | disposition home or self-care (01) ==
LOC: HO.XRAY 10:57
PROVIDERS: PCP Registered Nurse; Visit Provider Emergency Medicine
DX: R07.89 Other chest pain (principal)
CPT/HCPCS: 71046

== ENCOUNTER → 2023-02-28 13:15 | Outpatient (BNVA) | payer MEDICAID, SELFPAY | PROVIDERS: PCP Internal Medicine; Visit Provider Surgery | DX: L72.3 Sebaceous cyst (principal) | CPT/HCPCS: 99202 ==

== ENCOUNTER 2023-03-27 10:38 | Outpatient (REF) | payer OTHER, SELFPAY ==
[2023-03-29 13:04] LABS: TS Negative Control Passed; TS Panel A 0; TS Panel B 0; TS Positive Control Passed; TSpotTB Negative (Negative)
== END 2023-03-27 10:39 | disposition home or self-care (01) ==
LOC: HO.HMGCLDS 10:38
PROVIDERS: PCP Internal Medicine; Visit Provider Internal Medicine
DX: Z02.0 Encounter for examination for admission to educational institution (principal)
CPT/HCPCS: 36415; 86481

== ENCOUNTER 2023-04-16 13:42 | Outpatient (REF) | payer OTHER, SELFPAY | END 2023-04-16 13:43 | disposition home or self-care (01) | LOC: HO.LAB 13:42 | PROVIDERS: PCP Internal Medicine; Visit Provider Advanced Practice Midwife | DX: Z13.89 Encounter for screening for other disorder (principal) ==

== ENCOUNTER 2023-04-16 14:58 | Outpatient (REF) | payer OTHER, SELFPAY ==
[2023-04-17 08:57] LABS: BV Int Neg Control Negative (Negative); BV Int Pos Control Positive (Positive)
== END 2023-04-16 14:59 | disposition home or self-care (01) ==
LOC: HO.LNP 14:58
PROVIDERS: Visit Provider Advanced Practice Midwife
DX: Z20.2 Contact with and (suspected) exposure to infections with a predominantly sexual mode of transmission (principal); N89.8 Other specified noninflammatory disorders of vagina
CPT/HCPCS: 87480; 87510; 87660

== ENCOUNTER 2023-04-16 15:08 | Outpatient (REF) | payer OTHER, SELFPAY ==
[2023-04-17 06:36] LABS: CT PCR NOT DETECTED (Not Detect.); NG PCR NOT DETECTED (Not Detect.)
[2023-04-18 04:13] LABS: Syphilis Screen Nonreactive (Nonreactive)
[2023-04-18 04:23] LABS: HIV AB/AG Nonreactive (Nonreactive); ~Hepatitis C Antibody Nonreactive (Nonreactive)
[2023-04-18 05:33] LABS: HBc Num2 8.76 S/CO; HBc Num3 8.15 S/CO; Hepatitis B Core Antibody Reactive (Nonreactive)
== END 2023-04-16 15:09 | disposition home or self-care (01) ==
LOC: HO.LAB 15:08
PROVIDERS: Visit Provider Advanced Practice Midwife
DX: Z11.4 Encounter for screening for human immunodeficiency virus [HIV] (principal); Z20.2 Contact with and (suspected) exposure to infections with a predominantly sexual mode of transmission; N89.8 Other specified noninflammatory disorders of vagina
CPT/HCPCS: 0353U; 86704; 86780; 86803; 87389

== ENCOUNTER 2023-04-27 10:51 | Outpatient (REF) | payer OTHER, SELFPAY ==
--- NOTE | ~2023-04-27 | MM_ITS ---
EXAMINATION: MM DIAGNOSTIC DIGITAL BREAST TOMOSYNTHESIS, LEFT US DIAGNOSTIC ULTRASOUND BREAST, LEFT CLINICAL INFORMATION: Small palpable area 1:00 left breast noted at routine clinical exam. TC score 6%. COMPARISON: Mammography: 10/05/2022, 02/28/2021, 09/25/2019 TECHNIQUE: Digital breast tomosynthesis is performed in both the craniocaudal and mediolateral oblique views along with computer-aided detection (CAD). Synthesized 2D images are generated from the tomosynthesis. Ultrasound is targeted to the upper and upper outer left breast using grayscale imaging and color Doppler without and with harmonics. FINDINGS: There are scattered areas of fibroglandular density (ACR BI-RADS breast composition Category b). There are no significant masses, abnormal calcifications, or other abnormalities. Parenchymal pattern is similar to prior studies. There is no developing density or architectural abnormality. The axilla and skin contours are unremarkable. No significant changes. Ultrasound demonstrates no cystic or solid mass, architectural abnormality, or focal duct ectasia. No skin thickening or edema tracking in soft tissue planes. Results are discussed with the patient at time of visit, using an public records officer. MM/MM tomosynthesis diagnostic LT IMPRESSION: -No mammographic evidence of malignancy. No significant changes from prior studies. -Unremarkable left breast ultrasound. ASSESSMENT: BI-RADS 1: Negative RECOMMENDATION: 1. Patient should be managed based on the clinical impression. If there is still clinically palpable concern, further evaluation may be considered with surgical consult. Decision to proceed with biopsy should be based on clinical grounds and degree of clinical concern. 2. Otherwise, routine annual screening mammography. This patient's information was entered into a reminder system with a target due date for their next mammogram.
== END 2023-04-27 10:52 | disposition home or self-care (01) ==
LOC: HO.MAMMO 10:51
PROVIDERS: PCP Internal Medicine; Visit Provider Internal Medicine
DX: N64.4 Mastodynia (principal); N63.21 Unspecified lump in the left breast, upper outer quadrant
CPT/HCPCS: 76642; 77061; 77065

== ENCOUNTER 2023-06-06 14:23 | Outpatient (AMB) | payer OTHER, SELFPAY ==
[2023-06-06 14:28] VITALS: BP 166/86; BMI 25.7
--- NOTE | 2023-06-06 14:28 | A.OFFVIS_ITS ---
Intake Vital Signs 06/06/23 14:28 Height 5 ft 4 in Weight 150 lb BMI 25.7 BP 166/86 H Intake Visit Reasons: follow up/tajik Intake Note: The patient agreed to use of a dental assistant medical assistant during this encounter. Scribed for CYNDIE Maria by Tammy Piper dental assistant medical assistant, on 06/06/2023 at 2:42 pm EST. Conical Mixer Required: Yes Conical Mixer Language: Ecological Risk Assessor Name: Lay Information Interpreted: non-clinical & clinical Allergies penicillin V Allergy (Unknown, Verified 06/06/23 14:28) hives Penicillins [PENICILLINS] Allergy (Unknown, Verified 06/06/23 14:28) RASH,DIZZINESS HPI HPI Comments History of Present Illness Details She is here to discuss US/ mammogram results regarding small palpable area 1:00 left breast noted at routine clinical exam. Denies pain in breast at this time. She admits to missing her BP meds x 2days. [facility] Medical History (Updated 05/02/23 @ 11:26 by Conor Garcia MD) Cervical polyp Diabetes type 2, uncontrolled H. 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 Cognitive needs: No Hearing needs: No Vision needs: No Female Reproductive History Menstrual Age of Menarche: 12 Physical Exam Vital Signs: Last Vital Signs BP 166/86 H 06/06/23 14:28 BMI result Body Mass Index 25.7 Const General: cooperative, healthy appearing, comfortable, no acute distress, well developed, alert and awake Chest Chest palpation & inspection: normal inspection of the chest Breast/axilla inspection: normal inspection of the breasts and normal inspection of the axillae Breast/axilla palpation: normal palpation of the breasts and normal palpation of the axillae Results Reviewed Results Reviewed: EXAMINATION: MM DIAGNOSTIC DIGITAL BREAST TOMOSYNTHESIS, LEFT US DIAGNOSTIC ULTRASOUND BREAST, LEFT CLINICAL INFORMATION:? Small palpable area 1:00 left breast noted at routine clinical exam. TC score 6%. COMPARISON: Mammography: 10/05/2022, 02/28/2021, 09/25/2019 TECHNIQUE: Digital breast tomosynthesis is performed in both the craniocaudal and mediolateral oblique views along with computer-aided detection (CAD). Synthesized 2D images are generated from the tomosynthesis. Ultrasound is targeted to the upper and upper outer left breast using grayscale imaging and color Doppler without and with harmonics. FINDINGS: There are scattered areas of fibroglandular density (ACR BI-RADS breast composition Category b). There are no significant masses, abnormal calcifications, or other abnormalities.? Parenchymal pattern is similar to prior studies. There is no developing density or architectural abnormality. The axilla and skin contours are unremarkable. No significant changes. Ultrasound demonstrates no cystic or solid mass, architectural abnormality, or focal duct ectasia. No skin thickening or edema tracking in soft tissue planes. Results are discussed with the patient at time of visit, using an side laster staple. MM/MM tomosynthesis diagnostic LT IMPRESSION: -No mammographic evidence of malignancy. No significant changes from prior studies. -Unremarkable left breast ultrasound. ? ASSESSMENT:? BI-RADS 1: Negative ? RECOMMENDATION: 1. Patient should be managed based on the clinical impression. If there is still clinically palpable concern, further evaluation may be considered with surgical consult. Decision to proceed with biopsy should be based on clinical grounds and degree of clinical concern. ? 2. Otherwise, routine annual screening mammography. ? Assessment & Plan Assessment & Plan (1) Encounter to discuss test results: Code(s): Z71.2 - Person consulting for explanation of examination or test findings Plan: Discussed: Mammogram findings of: -No mammographic evidence of malignancy. No significant changes from prior studies. -Unremarkable left breast ultrasound. ASSESSMENT:? BI-RADS 1: Negative RECOMMENDATION: 1. Patient should be managed based on the clinical impression. If there is still clinically palpable concern, further evaluation may be considered with surgical consult. Decision to proceed with biopsy should be based on clinical grounds and degree of clinical concern. 2. Otherwise, routine annual screening mammography. If pain returns/increases RTO for further evaluation. Take BP meds on time. All of her questions and concerns were addressed to the best of my ability and shared decision making. She is agreeable to plan of care. (2) Normal breast exam: Code(s): Z00.00 - Encounter for general adult medical examination without abnormal findings Coding Level of Care Code Est Pt Level 3 (10129) Diagnoses Encounter to discuss test results Z71.2 Normal breast exam Z00.00
== END 2023-06-06 17:07 | disposition home or self-care (01) ==
LOC: HO.HWS 14:23
PROVIDERS: PCP Internal Medicine; Visit Provider Advanced Practice Midwife
DX: Z71.2 Person consulting for explanation of examination or test findings (principal); Z00.00 Encounter for general adult medical examination without abnormal findings
CPT/HCPCS: 99213

== ENCOUNTER → 2023-06-06 14:23 | Outpatient (BNVA) | payer OTHER, SELFPAY | PROVIDERS: PCP Internal Medicine; Visit Provider Advanced Practice Midwife | DX: Z71.2 Person consulting for explanation of examination or test findings (principal); Z00.00 Encounter for general adult medical examination without abnormal findings | CPT/HCPCS: 99212 ==

== ENCOUNTER 2023-06-25 13:03 | Outpatient (AMB) | payer OTHER, SELFPAY ==
--- NOTE | 2023-06-25 13:24 | A.OFFVIS_ITS ---
Intake VS Expanded 06/25/23 13:25 06/28/23 14:45 Height 5 ft 4 in 5 ft 4 in Weight 150 lb 2.157 oz 150 lb BMI 25.8 25.7 Intake Visit Reasons: DM2 Allergies penicillin V Allergy (Unknown, Verified 06/06/23 14:28) hives Penicillins [PENICILLINS] Allergy (Unknown, Verified 06/06/23 14:28) RASH,DIZZINESS HPI Nutrition Presentation Details Pt present for MNT for T2DM . Pt was referred by her primary car provider Dr. Garcia Typical meal intake B; coffee/ milk with 4 bread with butter or egg and farina or cornmeal 12-1 : fruits ( agapito, grapes , banana, strawberries) 3pm coffee with milk and crackers 7pm: tuna fish sandw,or fried potato or with egg , juice Food frequency Fruits per day 1-3 per day or in juice greater than 6 oz per day Dairy: Only in coffee or if making hot cereals in the morning abutted cup 3 times a week Vegetables: Not including Protein foods: Variety of poultry, a eggs, beef, pork greater than 10 oz per day Starches: Including non starchy vegetables greater than and 12 oz or servings per day Beverages: Water, juices, coffee Alcohol/smoking: Denies Physical activity: Daily life activities WOM-Cswuyuq-Uv.Jeor Equation Height 5 ft 4 in Weight 150 lb Resting Metabolic Rate 1239.51 Calculated Activity Level Mild Activity Calories Needed to Maintain Weight 1704.33 Diagnosis Nutrition problem #1 excessive energy intake As related to (etiology) #1 diagnosis As evidenced by (sign/symptom) #1 food recall Most Recent Diabetes Results: Creatinine 0.85 mg/dL (0.5-1.4) 02/12/23 Blood Urea Nitrogen 15 mg/dL (9-16) 02/12/23 Sodium 140 mmol/L (135-145) 02/12/23 Potassium 4.9 mmol/L (3.3-5.1) 02/12/23 Chloride 103 mmol/L (96-108) 02/12/23 Carbon Dioxide 27 mmol/L (22-29) 02/12/23 Calcium 10.2 mg/dL (8.4-10.2) 02/12/23 AST 22 U/L (5-31) 02/12/23 ALT 25 U/L (0-31) 02/12/23 Total Protein 7.2 g/dL (6.5-8.0) 02/12/23 Albumin 4.2 g/dL (3.5-5.0) 02/12/23 REPLACED BY [facility] Medical History (Updated 06/25/23 @ 13:[address], LDN) Cervical polyp Diabetes type 2, uncontrolled H. 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 Cognitive needs: No Hearing needs: No Vision needs: No Female Reproductive History Menstrual Age of Menarche: 12 Assessment & Plan Assessment & Plan (1) Type 2 diabetes mellitus with hyperglycemia: Code(s): E11.65 - Type 2 diabetes mellitus with hyperglycemia Plan: Weight: 68 kg Est kcal needs as per MSJ: 1700 (40% carb, 30% protein/fat) Est fluid needs as per 25- ml/d: 1700 Est prot per day as per 1 g/kg bw: 68 Recommend fiber intake : 8-10 g per day and gradually increase to 25-28 g per day for women and 35-38 g for men or as tolerated Recommend sodium intake per day : less than 2000 mg Educated patient on: ( R = reviewed V = verbalizes understanding N/R = needs review N/A = not applicable * Food sources of carbohydrate, adequate serving sizes and its role in various health conditions: R * Differences between complex carbohydrates a simple carbohydrates, role of fiber in diet: R * Differences between types of fats and role in diet (mono on saturated fat fatty acids, saturated fatty acids, trans fats): R * Food sources of sodium in salt and healthy modifications for heart health in kidney health: R * Vitamins and minerals: R * Healthy plate method concept: R * Physical activity: Benefits a precaution: R * Hypoglycemia protocol (rule of 15): R * Dietary prevention of Hyperglycemia: R Patient Instructions: Reduce on portion of starch at dinner by half a cup less, reducing total carb to 45 -60 g Reduce on sugar from beverages, try infused water Coding Level of Care Code Nutr Indiv Intake (44459) Diagnoses Type 2 diabetes mellitus with hyperglycemia E11.65 Time Spent (min) 40
[2023-06-25 13:25] VITALS: BMI 25.8
[2023-06-28 14:45] VITALS: BMI 25.7
== END 2023-06-25 14:05 | disposition home or self-care (01) ==
PROVIDERS: PCP Internal Medicine; Visit Provider Dietitian, Registered
DX: E11.65 Type 2 diabetes mellitus with hyperglycemia (principal)

== ENCOUNTER → 2023-06-25 13:03 | Outpatient (BNVA) | payer OTHER, SELFPAY | PROVIDERS: PCP Internal Medicine; Visit Provider Dietitian, Registered | DX: E11.65 Type 2 diabetes mellitus with hyperglycemia (principal) | CPT/HCPCS: 97802 ==

== ENCOUNTER 2023-08-16 08:31 | Outpatient (REF) | payer OTHER, SELFPAY ==
[2023-08-16 08:42] LABS: MANUAL DIFF FLAG NO
[2023-08-16 09:14] LABS: Basophils Percent Auto 0.4 % (0-2); Eosinophils Absolute Auto 0.1 X10*3/uL (0.0-0.4); Eosinophils Percent Auto 1.4 % (0-4); Hematocrit 40.9 % (37.0-47.0); Hemoglobin 13.2 g/dl (12.0-16.0); Imm Gran Abs Auto 0.03 X10*3/uL (0.00-0.03); Imm Gran Pct Auto 0.3 % (0.0-0.4); Lymphocytes Absolute Auto 1.7 X10*3/uL (1.2-4.9); Lymphocytes Percent Auto 17.5 % (20-40); Mean Corpuscular HGB Conc 32.3 g/dl (31.0-35.0); Mean Corpuscular Hemoglobin 25.6 pg (27.0-33.0); Mean Corpuscular Volume 79.4 fL (80.0-98.0); Mean Platelet Volume 9.1 fL (9.4-12.3); Monocytes Absolute Auto 0.5 X10*3/uL (0.1-1.2); Monocytes Percent Auto 5.5 % (2-11); Neutrophils Absolute Auto 7.1 x10*3/uL (2.0-8.3); Neutrophils Percent Auto 74.9 % (45-73); Platelet Count 438 X10*3/uL (160-400); Red Blood Count 5.15 X10*6/uL (4.20-5.50); Red Cell Distribution Width 14.9 % (11.0-16.0); White Blood Count 9.5 X10*3/uL (4.8-10.8)
[2023-08-16 09:58] LABS: Alanine Aminotransferase 129 U/L (0-31); Albumin Level 4.3 g/dL (3.5-5.0); Alkaline Phosphatase 82 U/L (39-117); Anion Gap 14 (12-20); Aspartate Amino Transferase 81 U/L (5-31); Bilirubin Total 0.4 mg/dL (0.0-1.0); Blood Urea Nitrogen 14 mg/dL (9-16); Carbon Dioxide 28 mmol/L (22-29); Chloride 104 mmol/L (96-108); Estimated Glomerular Filt Rate > 60; Glucose Random 167 mg/dL (60-115); Potassium 4.2 mmol/L (3.3-5.1); Sodium 142 mmol/L (135-145); Total Protein 7.7 g/dL (6.5-8.0)
[2023-08-16 09:59] LABS: Free T4 (Free Thyroxine) 1.15 ng/dL (0.71-1.85); Thyroid Stimulating Hormone 4.32 uIU/mL (0.32-4.0); Vitamin D 25-OH Total 64.8 ng/mL (>30)
[2023-08-16 10:23] LABS: Folate 16.5 ng/mL (> or = 4.0); Vitamin B12 294 pg/mL (200-900)
[2023-08-16 11:16] LABS: Creatinine Urine 45.99 mg/dL; Microalbumin Urine < 5.0 mg/L
== END 2023-08-16 08:32 | disposition home or self-care (01) ==
LOC: HO.LAB 08:31
PROVIDERS: PCP Internal Medicine; Visit Provider Internal Medicine
DX: E11.65 Type 2 diabetes mellitus with hyperglycemia (principal)
CPT/HCPCS: 36415; 80053; 82043; 82306; 82570; 82607; 82746; 84439; 84443; 85025

== ENCOUNTER 2023-08-21 13:10 | Outpatient (AMB) | payer OTHER, SELFPAY ==
--- NOTE | 2023-08-21 13:42 | A.OFFPC_ITS ---
Vital Signs 08/21/23 13:56 Height 5 ft 4 in Weight 147 lb BMI 25.2 BP 162/88 H Blood Pressure Location Lt brachial Position Sitting Pulse 89 Pulse Source Pulse Oximeter Pulse Oximetry (%) 98 Oxygen Delivery Method Room Air Intake Visit Reasons: pe/DM Allergies penicillin V Allergy (Unknown, Verified 08/21/23 13:56) hives Penicillins [PENICILLINS] Allergy (Unknown, Verified 08/21/23 13:56) RASH,DIZZINESS Medication List - Last Reconciled 08/21/23 by Conor Garcia MD atorvastatin 20 mg PO DAILY blood glucose control high,low (FreeStyle Control solution) As directed blood sugar diagnostic (FreeStyle Lite Strips) 3 times a day cholecalciferol (vitamin D3) 50 mcg PO DAILY dapagliflozin propanediol (Farxiga) 10 mg PO DAILY ferrous sulfate 325 mg PO BID lancets (FreeStyle Lancets) As directed three times a day lancets (TRUEplus Lancets) As directed Levoxyl (levothyroxine) 137 mcg PO DAILY 30 days NS linagliptin (Tradjenta) 5 mg PO DAILY 30 days lisinopril 20 mg PO DAILY metformin 1,000 mg PO BID 30 days pantoprazole 40 mg PO DAILY 30 days pen needle, diabetic (BD Corin 2nd Gen Pen Needle) once a day pen needle, diabetic (BD Ultra-Fine Corin Pen Needle) As directed once daily repaglinide 0.5 mg PO BID Tobacco use date assessed: 05/02/23 Dental Screening Dental Screen Date: 08/21/23 Did you have a dental visit in the last 12 months?: Yes Did you have a dental problem in the last 6 months where you did not have access to dental care?: No Was dental information given to patient?: Patient has dentist HPI pe/DM HPI Details 62-year-old female with uncontrolled sunitha betes mellitus hypertension hypothyroidism hypercholesterolemia GERD last seen in April 2023 coming in for physical exam. Mammograms up-to-date colonoscopy is up-to-date. Review of the notes has been sent to ear nose and throat diagnosis of gastroesophageal reflux disease without esophagitis dysphagia for angle esophageal phase Tiago [id number] 738 ([id number]) interpret SBP 135/75. complains of tongue, gets R chest pain - complains of sob on walking / PFSH Medical History (Updated 09/26/23 @ 14:40 by Conor Garcia MD) GERD (gastroesophageal reflux disease) Physical exam, pre-employment Sebaceous cyst RUQ pain Cervical polyp Muscle strain of right scapular region H. 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 1. Little interest or pleasure in doing things: not at all 2. Feeling down, depressed, or hopeless: not at all 3. Trouble falling or staying asleep, or sleeping too much: not at all 4. Feeling tired or having little energy: not at all 5. Poor appetite or overeating: not at all 6. Feeling bad about yourself - or that you are a failure or have let yourself or your family down: not at all 7. Trouble concentrating on things, such as reading the newspaper or watching television: not at all 8. Moving or speaking so slowly that other people could have noticed. Or the opposite - being so fidgety or restless that you have been moving around a lot more than usual: not at all 9. Thoughts that you would be better off or of hurting yourself in some way: not at all Total score: 0 Depression Screening Interpretation: Negative Source: Developed by Drs. Deepak L. YamiletNetta duran Kurt Kroenke and colleagues, with an educational kimi from [employer]. Thrive Questionnaire Date Thrive assessed: 05/02/23 AUDIT C Alcohol Use Questionnaire (AUDIT-C) 1. How often do you have a drink containing alcohol?: Never 3. How often do you have six or more drinks on one occasion?: Never Total Score: 0 SHAWN-7 AMB Questionnaire SHWAN-7 Date SHAWN - 7 assessed: 05/02/23 Source: Developed by Netta Carrero [employer]enke and colleagues, with an educational kimi from [employer]. Physical exam (Primary Care) Vital Signs: Last Vital Signs Pulse 89 08/21/23 13:56 BP 162/88 H 08/21/23 13:56 Pulse Ox 98 08/21/23 13:56 Oxygen Delivery Method Room Air 08/21/23 13:56 BMI result Body Mass Index 25.2 Tobacco/Smoking Status: Tobacco use Status Tobacco use date assessed 05/02/23 08/21/23 13:43 Patient Tobacco Use Status Never used Tobacco 08/21/23 13:43 e-Cigarette/Vaping Use Never Used 08/21/23 13:57 PHQ-9: PHQ-9 Score PHQ-9: Total score 0 08/21/23 18:27 Depression Screening Interpretation: Negative Thrive Assessment: Date of Thrive Assessment Date Thrive assessed 05/02/23 08/21/23 13:43 Const General: alert and awake HENMT Head: Yes normocephalic Ears: external ears normal and TM's normal bilaterally Face and sinus: Yes normal facial exam Mouth: moist mucous membranes Throat: Yes tonsils normal Eyes Conjunctivae: conjunctivae normal Pupils: Equal, round and reactive pupils present and Pupil accommodation reflex normal Direct Ophthalmoscopy: normal light reflex Neck Neck: No lymphadenopathy Thyroid: Thyroid normal Chest Chest palpation & inspection: normal inspection of the chest Resp Effort & Inspection: normal respiratory effort and no audible wheezes Auscultation: clear to auscultation bilaterally, no crackles, no wheezes and lung sounds not diminished Cardio Rate: regular rate Rhythm: regular rhythm Peripheral pulses: radial pulses present and dorsalis pedis present GI Palpation (GI): no masses Auscultation: normal bowel sounds and normoactive bowel sounds Rectal Exam - Female: deferred Skin General skin exam: no rashes or lesions noted Rashes: no rashes Neuro General: deep tendon reflexes 2+ bilaterally Cranial nerves: Yes Equal, round and reactive pupils present, Yes Midline tongue present and Yes Ability to bilaterally elevate shoulders present Cognition (Neuro): normal cognition Gait exam (Neuro): Normal gait present Motor exam (neuro): 5/5 motor strength present throughout Deep tendon reflexes (DTR's): Right brachioradialis reflex intensity grade: 2+, Left brachioradialis reflex intensity grade: 2+, Right patellar reflex intensity grade: 2+ and Left patellar reflex intensity grade: 2+ Extrem General: No edema Results AMB Hemoglobin A1c AMB Hemoglobin A1c 7.9 % Last Edit by Jojo Alvarado CMA on 08/21/23 14 :09 Results Reviewed Results Reviewed: Laboratory Last Values Hgb A1c (Clinic) 7.9 % (4.0-6.0) H 08/21/23 13:57 Assessment and Plan Assessment & Plan (1) Annual physical exam: Code(s): Z00.00 - Encounter for general adult medical examination without abnormal findings (2) Type 2 diabetes mellitus with hyperglycemia: Comment: [employer] [facility] Code(s): E11.65 - Type 2 diabetes mellitus with hyperglycemia Plan: Decrease the amount of carbohydrate intake, pasta, bread, rice and potatoes are all sugar and that is aside from all the sweet stuff, remember that fruits are good but they are Sweet also. Hemoglobin A1c goal of less than 6.5- would like to try diet (3) Hypercholesterolemia: Code(s): E78.00 - Pure hypercholesterolemia, unspecified Plan: Avoid fried foods, chicken skin, eggs, butter margarine, pastries and meat. Be it pork or beef they have a lot of cholesterol LDL goal of less than 100 and triglyceride of less than 150 (4) GERD (gastroesophageal reflux disease): Code(s): K21.9 - Gastro-esophageal reflux disease without esophagitis Plan: Avoid the foods that causes that usually spicy foods, tomato products, juices, coffee, soda and foods that your sensitive to. After eating do not lie down, allow 3-4 hours before in lie down. And keep the head of bed above 30 degrees to avoid the acid from going up. On top resolved 40 mg once a day (5) Hypertension: Code(s): I10 - Essential (primary) hypertension Qualifiers: Hypertension type: essential hypertension Qualified Code(s): I10 - Essential (primary) hypertension Plan: Continue with blood pressure medication. Decrease salt intake and exercise patient is on lisinopril 20 mg once a day (6) Hypothyroidism: Code(s): E03.9 - Hypothyroidism, unspecified Qualifiers: Hypothyroidism type: acquired Qualified Code(s): E03.9 - Hypothyroidism, unspecified Plan: Continue with thyroid medication will need follow-up blood work (7) LFT elevation: Code(s): R79.89 - Other specified abnormal findings of blood chemistry Plan: Low-fat diet and exercise (8) TSH elevation: Code(s): R79.89 - Other specified abnormal findings of blood chemistry Plan: Will repeat blood work (9) SOB (shortness of breath) on exertion: Code(s): R06.02 - Shortness of breath Orders: Orders Hepatitis B Profile Today R79.89 - Other specified abnormal findings of blood chemistry CA stress test Today R06.02 - Shortness of breath AMB Hemoglobin A1c Today Z13.9 - Encounter for screening, unspecified Medications: Changed From repaglinide administer within 15 minutes prior to largest meal of day 0.5 mg PO DAILY 30 tabs 6RF E11.65 - Type 2 diabetes mellitus with hyperglycemia To repaglinide administer within 15 minutes prior to largest meal of day 0.5 mg PO BID E11.65 - Type 2 diabetes mellitus with hyperglycemia Coding Level of Care Code Est Pt Prev Care 40-64y(15827) Diagnoses Annual physical exam Z00.00 Type 2 diabetes mellitus with hyperglycemia E11.65 Hypercholesterolemia E78.00 GERD (gastroesophageal reflux disease) K21.9 Essential hypertension I10 Hypertension type: essential hypertension Acquired hypothyroidism E03.9 Hypothyroidism type: acquired LFT elevation R79.89 TSH elevation R79.89 SOB (shortness of breath) on exertion R06.02
[2023-08-21 13:56] VITALS: BP 162/88; PULSE 89; O2SAT 98; BMI 25.2
== END 2023-08-21 14:54 | disposition home or self-care (01) ==
PROVIDERS: PCP Internal Medicine; Visit Provider Internal Medicine
DX: Z00.00 Encounter for general adult medical examination without abnormal findings (principal); E11.65 Type 2 diabetes mellitus with hyperglycemia; K21.9 Gastro-esophageal reflux disease without esophagitis; I10 Essential (primary) hypertension; E03.9 Hypothyroidism, unspecified; E78.00 Pure hypercholesterolemia, unspecified; R79.89 Other specified abnormal findings of blood chemistry; R06.02 Shortness of breath
CPT/HCPCS: 83036; 99396

== ENCOUNTER 2023-09-13 07:58 | Outpatient (REF) | payer OTHER, SELFPAY ==
--- NOTE | ~2023-09-13 | US_ITS ---
EXAMINATION: US ABDOMEN COMPLETE CLINICAL INFORMATION: Other specified abnormal findings of blood chemistry. COMPARISON: Ultrasound abdomen complete 07/11/2022. Renal ultrasound 08/14/2019. CT abdomen and pelvis 01/22/2019. TECHNIQUE: Real-time imaging of the abdominal viscera. Limited visualization due to bowel gas and body habitus. FINDINGS: PANCREAS: Limited visualization of pancreatic tail and head. Imaged portion of pancreatic body is unremarkable. ABDOMINAL AORTA: Nonaneurysmal. INFERIOR VENA CAVA: Visualized portions are normal. LIVER: Right hepatic 0.4 x 0.3 x 0.3 cm echogenic focus is stable. CT scan of 2019 demonstrated a right hepatic calcification. The liver is normal in size. The liver contour is normal. Parenchymal echogenicity is normal. GALLBLADDER: Surgically absent. COMMON BILE DUCT: Normal in caliber measuring 0.34 cm in diameter. RIGHT KIDNEY: Redemonstration of mild fullness right renal collecting system. No renal calculi. Limited visualization. The kidney measures 11.3 cm in maximum dimension. LEFT KIDNEY: Redemonstration of mild fullness of the left renal collecting system. No renal calculi. Limited visualization. The kidney measures 11.2 cm in maximum dimension. SPLEEN: Normal. The spleen measures 9.0 cm in maximum dimension. FREE FLUID: None. US/US abdomen complete IMPRESSION: 1. Right hepatic 0.4 cm echogenic focus is stable. CT scan of 2019 demonstrated right hepatic calcification. 2. Redemonstration of mild fullness of the bilateral renal collecting systems. No renal calculi identified.
== END 2023-09-13 07:59 | disposition home or self-care (01) ==
LOC: HO.US 07:58
PROVIDERS: PCP Internal Medicine; Visit Provider Internal Medicine
DX: R79.89 Other specified abnormal findings of blood chemistry (principal)
CPT/HCPCS: 76700

== ENCOUNTER → 2023-09-18 09:13 | Outpatient (REF) | payer OTHER, SELFPAY ==
--- NOTE | 2023-09-18 09:16 | CA_ITS ---
Acquisition Time: 2023-09-18 09:48:46 Total Exercise Time: 00:05:01 Test Indications: SOB Medications: Protocol: CORNELIA Max HR: 160 BPM 100% of Pred: 160 BPM Max BP: 208/072 mmHG Max Work Load: 5.9 METS Exercise stress test exercise 5 min 1 sec of Cornelia protocol stage 2 manually increased to 2.2 mph, 11% grade, achieving 100% MPHR, without anginal symptoms, without arrhythmias, with max BP at peak 208/72, with lead [address] sco[address] Test reviewed with Dr. Leong Referred By: Conor Garcia Overread By: Rosy Campbell
== END ==
LOC: HO.CARD 09:13
PROVIDERS: PCP Internal Medicine; Visit Provider Internal Medicine
DX: R06.02 Shortness of breath (principal)
CPT/HCPCS: 93017

== ENCOUNTER → 2023-09-18 09:16 | Outpatient (BNV) | payer OTHER, SELFPAY | PROVIDERS: PCP Internal Medicine; Visit Provider Nurse Practitioner | DX: R06.02 Shortness of breath (principal) | CPT/HCPCS: 93016; 93018 ==

== ENCOUNTER 2023-11-27 08:26 | Outpatient (REF) | payer OTHER, SELFPAY ==
[2023-11-27 10:27] LABS: Alanine Aminotransferase 153 U/L (0-31); Alkaline Phosphatase 73 U/L (39-117); Anion Gap 14 (12-20); Aspartate Amino Transferase 75 U/L (5-31); Bilirubin Total 0.4 mg/dL (0.0-1.0); Blood Urea Nitrogen 13 mg/dL (9-16); Calcium 9.9 mg/dL (8.4-10.2); Carbon Dioxide 29 mmol/L (22-29); Chloride 107 mmol/L (96-108); Estimated Glomerular Filt Rate > 60; Glucose Random 158 mg/dL (60-115); Potassium 4.7 mmol/L (3.3-5.1); Sodium 145 mmol/L (135-145); Total Protein 7.3 g/dL (6.5-8.0)
[2023-11-27 10:35] LABS: HBS Num1 253.06 mIU/mL (0-7.99); HBc Num1 6.63 S/CO (0.00-0.79); HBsAGNum1 0.23 S/CO (0.00-0.99); Hepatitis B Surface Antigen Negative (Negative); ~HepC Num1 0.11 S/CO (0.00-0.79); ~Hepatitis B Surface Antibody REACTIVE (Nonreactive); ~Hepatitis C Antibody Nonreactive (Nonreactive)
[2023-11-27 10:39] LABS: Ferritin 45 ng/mL (10-250); Free T4 (Free Thyroxine) 0.95 ng/dL (0.71-1.85)
[2023-11-27 12:07] LABS: HBc Num2 6.42 S/CO; HBc Num3 6.48 S/CO; Hepatitis B Core Antibody Reactive (Nonreactive)
== END 2023-11-27 08:27 | disposition home or self-care (01) ==
LOC: HO.LAB 08:26
PROVIDERS: PCP Internal Medicine; Visit Provider Internal Medicine
DX: R79.89 Other specified abnormal findings of blood chemistry (principal); Z11.59 Encounter for screening for other viral diseases; Z72.89 Other problems related to lifestyle
CPT/HCPCS: 36415; 80053; 82728; 84439; 84443; 86704; 86706; 86803; 87340

== ENCOUNTER 2023-11-29 15:59 | Outpatient (AMB) | payer OTHER, SELFPAY ==
[2023-11-29 16:04] VITALS: BP 160/88; PULSE 94; O2SAT 99; BMI 24.9
--- NOTE | 2023-11-29 16:04 | MHC.PC.OV ---
Vital Signs 11/29/23 16:04 Height 5 ft 4 in Weight 145 lb 0.6 oz BMI 24.9 BP 160/88 H Blood Pressure Location Lt brachial Position Sitting Pulse 94 Pulse Source Pulse Oximeter Pulse Oximetry (%) 99 Oxygen Delivery Method Room Air Intake Visit Reasons: DM Allergies penicillin V Allergy (Unknown, Verified 11/29/23 16:06) hives Penicillins [PENICILLINS] Allergy (Unknown, Verified 11/29/23 16:06) RASH,DIZZINESS Medication List - Last Reconciled 11/29/23 by Conor Garcia MD atorvastatin 20 mg PO DAILY blood glucose control high,low (FreeStyle Control solution) As directed blood sugar diagnostic (FreeStyle Lite Strips) 3 times a day cholecalciferol (vitamin D3) 50 mcg PO DAILY dapagliflozin propanediol (Farxiga) 10 mg PO DAILY ferrous sulfate 325 mg PO BID lancets (FreeStyle Lancets) As directed three times a day lancets (TRUEplus Lancets) As directed Levoxyl (levothyroxine) 137 mcg PO DAILY 30 days NS linagliptin (Tradjenta) 5 mg PO DAILY 30 days lisinopril 20 mg PO DAILY metformin 1,000 mg PO BID 30 days pantoprazole 40 mg PO DAILY 30 days pen needle, diabetic (BD Corin 2nd Gen Pen Needle) once a day pen needle, diabetic (BD Ultra-Fine Corin Pen Needle) As directed once daily repaglinide 0.5 mg PO BID Tobacco use date assessed: 11/29/23 HPI DM HPI Details 62-year-old female with uncontrolled diabetes mellitus hypercholesterolemia GERD hypertension hypothyroidism last seen in July 2023. Patient is up-to-date with mammogram colonoscopy in cervical cancer screening. Review of the notes in August 2023 patient had chest pains and stress test was done showing normal. With elevated LFT ultrasound done showing liver with right hepatic focus that is stable they did show some mild fullness on the renal collecting system Shayan [id number]. BP at home is good 120-130/70- good. noted a mass on the L shoulder cystic structure no changes no pain- advised to let me know. [facility] Medical History (Updated 11/29/23 @ 16:34 by Conor Garcia MD) GERD (gastroesophageal reflux disease) Physical exam, pre-employment Sebaceous cyst RUQ pain Cervical polyp Muscle strain of right scapular region H. pylori infection Overweight (BMI 25.0-29.9) Hypertension Hypothyroidism alf (current) use of insulin Diabetes type 2, uncontrolled Surgical History Hx of tubal ligation Hx of cholecystectomy Family History (Updated 08/21/23 @ 13:57 by Jojo Alvarado CMA) Unknown No problems noted. 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 Deepak Woodard, Netta Chairez, Juan R Tovar and colleagues, with an educational kimi from [employer]. Physical exam (Primary Care) Vital Signs: Last Vital Signs Pulse 94 11/29/23 16:04 BP 160/88 H 11/29/23 16:04 Pulse Ox 99 11/29/23 16:04 Oxygen Delivery Method Room Air 11/29/23 16:04 BMI result Body Mass Index 24.9 Tobacco/Smoking Status: Tobacco use Status Tobacco use date assessed 11/29/23 11/29/23 16:08 Patient Tobacco Use Status Never used Tobacco 11/29/23 16:08 e-Cigarette/Vaping Use Never Used 11/29/23 16:08 Thrive Assessment: Date of Thrive Assessment Date Thrive assessed 05/02/23 11/29/23 16:08 Const General: alert; No acute distress Eyes Conjunctivae: conjunctivae normal Resp Auscultation: clear to auscultation bilaterally Cardio Rate: regular rate Rhythm: regular rhythm GI Inspection: Yes normal to inspection Extrem General: Yes normal to inspection and No edema Results AMB Hemoglobin A1c AMB Hemoglobin A1c 10.4 % Last Edit by MIGDALIA Henley on 11/29/23 16:24 Results Reviewed Results Reviewed: Laboratory Last Values Hgb A1c (Clinic) 10.4 % (4.0-6.0) H 11/29/23 15:51 Assessment and Plan Assessment & Plan (1) Type 2 diabetes mellitus with hyperglycemia: Comment: [facility] Code(s): E11.65 - Type 2 diabetes mellitus with hyperglycemia Plan: Decrease the amount of carbohydrate intake, pasta, bread, rice and potatoes are all sugar and that is aside from all the sweet stuff, remember that fruits are good but they are Sweet also. Hemoglobin A1c goal of less than 6.5. Patient on Farxiga 10 mg once a day Tradjenta 5 mg once a day metformin 1000 mg twice a day and repaglinide 0.5 mg twice a day (2) Hypertension: Code(s): I10 - Essential (primary) hypertension Qualifiers: Hypertension type: essential hypertension Qualified Code(s): I10 - Essential (primary) hypertension Plan: Continue with blood pressure medication. Decrease salt intake and exercise patient on lisinopril 20 mg once a day. BP at home has been good (3) Hypothyroidism: Code(s): E03.9 - Hypothyroidism, unspecified Qualifiers: Hypothyroidism type: acquired Qualified Code(s): E03.9 - Hypothyroidism, unspecified Plan: Continue with thyroid medication (4) Hypercholesterolemia: Code(s): E78.00 - Pure hypercholesterolemia, unspecified Plan: Avoid fried foods, chicken skin, eggs, butter margarine, pastries and meat. Be it pork or beef they have a lot of cholesterol atorvastatin 20 mg once a day LDL goal of less than 100 (5) LFT elevation: Code(s): R79.89 - Other specified abnormal findings of blood chemistry Plan: Concern about elevated liver function test ultrasound did not show any fatty liver (6) GERD (gastroesophageal reflux disease): Code(s): K21.9 - Gastro-esophageal reflux disease without esophagitis Plan: Avoid the foods that causes that usually spicy foods, tomato products, juices, coffee, soda and foods that your sensitive to. After eating do not lie down, allow 3-4 hours before in lie down. And keep the head of bed above 30 degrees to avoid the acid from going up. (7) Hydronephrosis: Code(s): N13.30 - Unspecified hydronephrosis Plan: Concern about fullness of both collecting systems. But this has been stable since 2021 Orders: Orders AMB Hemoglobin A1c Today E11.65 - Type 2 diabetes mellitus with hyperglycemia Referrals Endocrinology Referral E11.65 - Type 2 diabetes mellitus with hyperglycemia Gastroenterology Referral R79.89 - Other specified abnormal findings of blood chemistry Medications: New insulin degludec (Tresiba FlexTouch U-100 insulin) 10 units (0.1 mL) subcut DAILY 15 mL 1RF E11.65 - Type 2 diabetes mellitus with hyperglycemia glucose (Dex4 Glucose) until symptoms of low blood sugar are controlled 4 grams PO Q15M PRN 20 tabs 0RF hypoglycemia E11.65 - Type 2 diabetes mellitus with hyperglycemia pen needle, diabetic (BD Ultra-Fine Corin Pen Needle) As directed 100 ea 1RF E11.65 - Type 2 diabetes mellitus with hyperglycemia Changed From lancets (TRUEplus Lancets) As directed 100 ea diabetes mellitus E11.65 - Type 2 diabetes mellitus with hyperglycemia To lancets (TRUEplus Lancets) As directed check BS TID 100 ea diabetes mellitus E11.65 - Type 2 diabetes mellitus with hyperglycemia Refilled lancets (FreeStyle Lancets) As directed three times a day 100 ea 11RF E11.65 - Type 2 diabetes mellitus with hyperglycemia Coding Level of Care Code Est Pt Level 4 (47096) Diagnoses Type 2 diabetes mellitus with hyperglycemia E11.65 Essential hypertension I10 Hypertension type: essential hypertension Acquired hypothyroidism E03.9 Hypothyroidism type: acquired Hypercholesterolemia E78.00 LFT elevation R79.89 GERD (gastroesophageal reflux disease) K21.9 Hydronephrosis N13.30
== END 2023-11-29 16:45 | disposition home or self-care (01) ==
PROVIDERS: PCP Internal Medicine; Visit Provider Internal Medicine
DX: E11.65 Type 2 diabetes mellitus with hyperglycemia (principal); I10 Essential (primary) hypertension; E03.9 Hypothyroidism, unspecified; E78.00 Pure hypercholesterolemia, unspecified; R79.89 Other specified abnormal findings of blood chemistry; K21.9 Gastro-esophageal reflux disease without esophagitis; N13.30 Unspecified hydronephrosis
CPT/HCPCS: 83036; 99214

== ENCOUNTER 2024-01-16 09:20 | Outpatient (AMB) | payer OTHER, SELFPAY ==
--- NOTE | 2024-01-16 09:44 | A.OFFVIS_ITS ---
Intake Vital Signs 01/16/24 09:45 Height 5 ft 4 in Weight 142 lb BMI 24.4 BP 160/82 H Blood Pressure Location Lt brachial Position Sitting Pulse 98 Intake Visit Reasons: abn blood chemistry Intake Note: Follow up for abnormal blood chemistry Patient last week she was with abdominal pain and nauseas. Forensic Pathologist Required: Yes Forensic Pathologist Name: [facility] interpeter Accompanied by: Self / Same As Patient Allergies penicillin V Allergy (Unknown, Verified 01/16/24 09:43) hives Penicillins [PENICILLINS] Allergy (Unknown, Verified 01/16/24 09:43) RASH,DIZZINESS Medication List - Last Reconciled 01/16/24 by Valeri Rucker PA-C atorvastatin 20 mg PO DAILY blood glucose control high,low (FreeStyle Control solution) As directed blood sugar diagnostic (FreeStyle Lite Strips) 3 times a day cholecalciferol (vitamin D3) 50 mcg PO DAILY dapagliflozin propanediol (Farxiga) 10 mg PO DAILY ferrous sulfate 325 mg PO BID glucose (Dex4 Glucose) 4 grams PO Q15M PRN insulin glargine (Lantus Solostar U-100 Insulin) 8 units (0.08 mL) subcut QPM lancets (TRUEplus Lancets) As directed check BS TID lancets (FreeStyle Lancets) As directed three times a day Levoxyl (levothyroxine) 137 mcg PO DAILY 30 days NS linagliptin (Tradjenta) 5 mg PO DAILY 30 days lisinopril 20 mg PO DAILY metformin 1,000 mg PO BID 30 days pantoprazole 40 mg PO DAILY 30 days pen needle, diabetic (BD Ultra-Fine Corin Pen Needle) As directed pen needle, diabetic (BD Corin 2nd Gen Pen Needle) once a day pen needle, diabetic (BD Ultra-Fine Corin Pen Needle) As directed once daily repaglinide 0.5 mg PO BID HPI HPI Comments History of Present Illness Details 63-year-old female last seen [facility] -has not been referred due to abnormal labs. She has no new medications- No ETOH, OTC- IBU for [place]- none is a couple monnths she has some reflux-dietary modifications-pantoprazole is helpful Appetite is good She had nausea 2 wks ago- some nonspecific abdominal pain- has resolved-no other symptoms Bowels are normal No nausea, vomiting, hematemesis, hematochezia, fever or chills [facility] Medical History (Updated 01/16/24 @ 10:54 by Valeri Rucker PA-C) GERD (gastroesophageal reflux disease) Physical exam, pre-employment Sebaceous cyst RUQ pain Cervical polyp Muscle strain of right scapular region H. pylori infection Overweight (BMI 25.0-29.9) Hypertension Hypothyroidism half-way (current) use of insulin Diabetes type 2, uncontrolled Surgical History Hx of tubal ligation Hx of cholecystectomy Family History Unknown No problems noted. 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 Cognitive needs: No Hearing needs: No Vision needs: No Female Reproductive History Menstrual Age of Menarche: 12 Review of Systems Const All systems reviewed & are unremarkable except as noted in HPI and below Card Denies chest pain and Denies dyspnea Resp Denies dyspnea GI Denies abdominal pain, Denies change in bowel habits, Denies nausea and Denies vomiting Physical Exam Vital Signs: Last Vital Signs Pulse 98 01/16/24 09:45 BP 160/82 H 01/16/24 09:45 BMI result Body Mass Index 24.4 Const General: cooperative, healthy appearing, comfortable and no acute distress Orientation/consciousness: patient oriented x3 Limitations: language barrier Eyes Sclerae: sclerae normal Resp Effort & Inspection: normal respiratory effort and able to speak in complete sentences Auscultation: clear to auscultation bilaterally, no rales, no rhonchi and no wheezes Cardio Rate: regular rate Rhythm: regular rhythm Heart sounds: S1 normal heart sound present and S2 normal heart sound present Skin General skin exam: no rashes or lesions noted Neuro General: patient oriented x3 Extrem General: Yes full ROM Psych Appearance: grossly normal and well kempt Mental Status: mental status grossly normal Speech and movement: Normal speech and movement present and Clear speech present Affect: normal affect Attitude: cooperative Thought process: Normal thought process present Thought content: Normal thought content present Results Reviewed Results Reviewed: US/US abdomen complete IMPRESSION: 1. Right hepatic 0.4 cm echogenic focus is stable. CT scan of 2019 demonstrated right hepatic calcification. 2. Redemonstration of mild fullness of the bilateral renal collecting systems. No renal calculi identified 2017- colon- [place]- hyperplastic- 10 yrs Assessment & Plan Assessment & Plan (1) LFT elevation: Comment: Reviewed labs liver enzymes normal 01/2023-no change in medications-no EtOH, viral serologies neg-reviewed ultrasound Code(s): R79.89 - Other specified abnormal findings of blood chemistry Plan: Update labs, Plan Labs, Orders: Orders Lipid Panel Today K76.0 - Fatty (change of) liver, not elsewhere classified Mitochondrial Antibody Today R74.01 - Elevation of levels of liver transaminase levels Smooth Muscle Antibody Today R74.8 - Abnormal levels of other serum enzymes Alpha 1 Anti-trypsin Today R74.01 - Elevation of levels of liver transaminase levels KENNY Reflex Titer and Pattern Today R74.01 - Elevation of levels of liver transaminase levels Comprehensive Met. Panel Today K58.9 - Irritable bowel syndrome without diarrhea Patient Instructions: Labs-fasting, to include lipid Reinforced no OTC or herbs Coding Level of Care Code New Pt Level 3 (74399) Diagnoses LFT elevation R79.89 Time Spent (min) 25 Comment Forensic Pathologist
[2024-01-16 09:45] VITALS: BP 160/82; PULSE 98; BMI 24.4
== END 2024-01-16 10:11 | disposition home or self-care (01) ==
PROVIDERS: PCP Internal Medicine; Visit Provider Physician Assistant
DX: R79.89 Other specified abnormal findings of blood chemistry (principal)
CPT/HCPCS: 99213

== ENCOUNTER → 2024-01-16 09:20 | Outpatient (BNVA) | payer OTHER, SELFPAY | PROVIDERS: PCP Internal Medicine; Visit Provider Physician Assistant | DX: R79.89 Other specified abnormal findings of blood chemistry (principal) | CPT/HCPCS: 99212 ==

== ENCOUNTER 2024-02-01 08:23 | Outpatient (REF) | payer OTHER, SELFPAY ==
[2024-02-01 09:37] LABS: Alanine Aminotransferase 221 U/L (0-31); Albumin Level 4.2 g/dL (3.5-5.0); Alkaline Phosphatase 68 U/L (39-117); Anion Gap 13 (12-20); Aspartate Amino Transferase 123 U/L (5-31); Bilirubin Total 0.4 mg/dL (0.0-1.0); Blood Urea Nitrogen 17 mg/dL (9-16); Calcium 10.2 mg/dL (8.4-10.2); Carbon Dioxide 30 mmol/L (22-29); Chloride 106 mmol/L (96-108); Cholesterol 109 mg/dL (<200); Estimated Glomerular Filt Rate > 60; Glucose Random 152 mg/dL (60-115); HDL Cholesterol 37 mg/dL (>40); LDL Cholesterol Calculated 53 mg/dL (<100); Potassium 4.8 mmol/L (3.3-5.1); Sodium 144 mmol/L (135-145); Total Protein 7.5 g/dL (6.5-8.0); Triglycerides 96 mg/dL (<150)
[2024-02-01 10:08] LABS: HBS Num1 254.91 mIU/mL (0-7.99); HBc Num1 5.76 S/CO (0.00-0.79); HBsAGNum1 0.48 S/CO (0.00-0.99); Hepatitis B Surface Antigen Negative (Negative); ~Hepatitis B Surface Antibody REACTIVE (Nonreactive)
[2024-02-01 11:39] LABS: HBc Num2 5.91 S/CO; HBc Num3 5.78 S/CO; Hepatitis B Core Antibody Reactive (Nonreactive)
[2024-02-04 11:58] LABS: Alpha 1 Anti-trypsin 178 mg/dL (83-199)
[2024-02-04 15:13] LABS: Anti Nuclear Antibody Screen NEGATIVE (NEGATIVE)
[2024-02-05 13:34] LABS: Mitochondrial Antibodies NEGATIVE (NEGATIVE)
[2024-02-06 13:39] LABS: Smooth Muscle Antibody <20 U (<20)
== END 2024-02-01 08:24 | disposition home or self-care (01) ==
LOC: HO.LAB 08:23
PROVIDERS: Physician Assistant; PCP Internal Medicine; Visit Provider Internal Medicine
DX: E11.65 Type 2 diabetes mellitus with hyperglycemia (principal); E78.00 Pure hypercholesterolemia, unspecified; R74.01 Elevation of levels of liver transaminase levels; K58.9 Irritable bowel syndrome, unspecified; R74.8 Abnormal levels of other serum enzymes; R79.89 Other specified abnormal findings of blood chemistry
CPT/HCPCS: 36415; 80053; 80061; 82103; 86015; 86038; 86381; 86704; 86706; 87340

== ENCOUNTER 2024-02-04 12:53 | Outpatient (AMB) | payer OTHER, SELFPAY ==
[2024-02-04 12:54] VITALS: BP 140/74; PULSE 85; O2SAT 100; BMI 24.0
--- NOTE | 2024-02-04 12:54 | MHC.PC.OV ---
Vital Signs 02/04/24 12:54 Height 5 ft 4 in Weight 140 lb BMI 24.0 BP 140/74 H Blood Pressure Location Lt brachial Position Sitting Pulse 85 Pulse Source Pulse Oximeter Temp Source Skin Pulse Oximetry (%) 100 Oxygen Delivery Method Room Air Intake Visit Reasons: 6 Week F/U Mitten Stitcher Required: Yes Mitten Stitcher Language: Azeri Allergies penicillin V Allergy (Unknown, Verified 02/04/24 12:54) hives Penicillins [PENICILLINS] Allergy (Unknown, Verified 02/04/24 12:54) RASH,DIZZINESS Tobacco use date assessed: 02/04/24 Dental Screening Dental Screen Date: 02/04/24 HPI 6 Week F/U HPI Details 63-year-old female with uncontrolled diabetes mellitus hypertension hypothyroidism hypercholesterolemia GERD coming in for follow-up last seen in November 2023. Patient is here for follow-up mammogram is up-to-date colonoscopy is up-to-date. Review of the notes in January 16 was seen by the Gastroenterology advised workup to be done with mitochondrial antibody smooth muscle anti body, alpha 1 antitrypsin, KENNY interpret [id number] ([id number]) interpret BP high. BP here is high- states 140-/65. long discusssion on need to record BPso we can decide to if we need to increase med(patient has not done this) stressed to do this as for DM - PAltient has gone to the DM clinic, [facility] - was told AIC 7. point somthingBS has been 110, [id number], 206, 153 , 159,136, 133, 171, 132, will continue to monitor for now. 2 weeks ago R shoulder pain. deny fall or trauma but pain more in the R infraspinatus , no cough , no breath, PFSH Medical History (Updated 01/16/24 @ 10:54 by Valeri Rucker PA-C) GERD (gastroesophageal reflux disease) Physical exam, pre-employment Sebaceous cyst RUQ pain Cervical polyp Muscle strain of right scapular region H. pylori infection Overweight (BMI 25.0-29.9) Hypertension Hypothyroidism senior living (current) use of insulin Diabetes type 2, uncontrolled Surgical History Hx of tubal ligation Hx of cholecystectomy Family History Unknown No problems noted. 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 Cognitive needs: No Hearing needs: No Vision needs: No Female Reproductive History Menstrual Age of Menarche: 12 Questionnaire Thrive Questionnaire Date Thrive assessed: 05/02/23 I am a: Patient What is your living situation today?: I have a steady place to live Within the past 12 months, did the food you bought not last and you didn't have the money to get more?: Never true Within the past 12 months, did you worry whether your food would run out before you got money to buy more?: Never true Do you have trouble paying for medicines?: No Do you have trouble getting transportation to medical appointments?: No Do you have trouble paying your heating and electricity bill?: No Do you have trouble taking care of your child, family member or friend?: No Do you have trouble with day-to-day activities such as bathing, preparing meals, shopping, managing finances, etc.?: No Are you currently unemployed and looking for a job?: No Are you interested in more education?: No Please select the resources that you would like help with: None THRIVE Score: 0 AUDIT C Alcohol Use Questionnaire (AUDIT-C) 1. How often do you have a drink containing alcohol?: Never 3. How often do you have six or more drinks on one occasion?: Never Total Score: 0 SHAWN-7 AMB Questionnaire SHAWN-7 Date SHAWN - 7 assessed: 02/04/24 Source: Developed by Drs. Deepak Woodard, Netta Chairez, Juan R Tovar and colleagues, with an educational kimi from [employer] Physical exam (Primary Care) Vital Signs: Last Vital Signs Pulse 85 02/04/24 12:54 BP 140/74 H 02/04/24 12:54 Pulse Ox 100 02/04/24 12:54 Oxygen Delivery Method Room Air 02/04/24 12:54 BMI result Body Mass Index 24.0 Tobacco/Smoking Status: Tobacco use Status Tobacco use date assessed 02/04/24 02/04/24 13:00 Patient Tobacco Use Status Never used Tobacco 02/04/24 13:00 e-Cigarette/Vaping Use Never Used 02/04/24 13:00 Thrive Assessment: Date of Thrive Assessment Date Thrive assessed 05/02/23 02/04/24 13:00 Const General: alert; No acute distress Eyes Conjunctivae: conjunctivae normal Resp Auscultation: clear to auscultation bilaterally Cardio Rate: regular rate Rhythm: regular rhythm GI Inspection: Yes normal to inspection Extrem General: Yes normal to inspection and No edema Assessment and Plan Assessment & Plan (1) Type 2 diabetes mellitus with hyperglycemia: Comment: [facility] Code(s): E11.65 - Type 2 diabetes mellitus with hyperglycemia Plan: Decrease the amount of carbohydrate intake, pasta, bread, rice and potatoes are all sugar and that is aside from all the sweet stuff, remember that fruits are good but they are Sweet also. Hemoglobin A1c goal of less than 6.5. Patient takes Farxiga Lantus Tradjenta, repaglinide and metformin- seeng DM specialist BS better controlled (2) Hypercholesterolemia: Code(s): E78.00 - Pure hypercholesterolemia, unspecified Plan: Avoid fried foods, chicken skin, eggs, butter margarine, pastries and meat. Be it pork or beef they have a lot of cholesterol LDL goal of less than 100 and triglyceride of less than 150 on atorvastatin 20 mg once a day (3) GERD (gastroesophageal reflux disease): Code(s): K21.9 - Gastro-esophageal reflux disease without esophagitis Plan: Avoid the foods that causes that usually spicy foods, tomato products, juices, coffee, soda and foods that your sensitive to. After eating do not lie down, allow 3-4 hours before in lie down. And keep the head of bed above 30 degrees to avoid the acid from going up. (4) Hypertension: Code(s): I10 - Essential (primary) hypertension Qualifiers: Hypertension type: essential hypertension Qualified Code(s): I10 - Essential (primary) hypertension Plan: Continue with lisinopril 20 mg once a day. advised to monitor BP and bring list oon ff up (5) LFT elevation: Comment: Reviewed labs liver enzymes normal 01/2023-no change in medications-no EtOH, viral serologies neg-reviewed ultrasound Code(s): R79.89 - Other specified abnormal findings of blood chemistry Plan: Patient is being worked up by Gastroenterology Coding Level of Care Code Est Pt Level 4 (98567) Diagnoses Type 2 diabetes mellitus with hyperglycemia E11.65 Hypercholesterolemia E78.00 GERD (gastroesophageal reflux disease) K21.9 Essential hypertension I10 Hypertension type: essential hypertension LFT elevation R79.89
== END 2024-02-04 13:40 | disposition home or self-care (01) ==
PROVIDERS: PCP Internal Medicine; Visit Provider Internal Medicine
DX: E11.65 Type 2 diabetes mellitus with hyperglycemia (principal); E78.00 Pure hypercholesterolemia, unspecified; K21.9 Gastro-esophageal reflux disease without esophagitis; I10 Essential (primary) hypertension; R79.89 Other specified abnormal findings of blood chemistry
CPT/HCPCS: 99214

== ENCOUNTER 2024-02-23 08:32 | Outpatient (REF) | payer OTHER, SELFPAY ==
[2024-02-23 08:53] LABS: MANUAL DIFF FLAG NO
[2024-02-23 09:30] LABS: Basophils Percent Auto 0.5 % (0-2); Eosinophils Absolute Auto 0.1 X10*3/uL (0.0-0.4); Eosinophils Percent Auto 1.5 % (0-4); Hematocrit 39.4 % (37.0-47.0); Hemoglobin 12.8 g/dl (12.0-16.0); Imm Gran Abs Auto 0.02 X10*3/uL (0.00-0.03); Imm Gran Pct Auto 0.2 % (0.0-0.4); Lymphocytes Absolute Auto 1.8 X10*3/uL (1.2-4.9); Lymphocytes Percent Auto 19.7 % (20-40); Mean Corpuscular HGB Conc 32.5 g/dl (31.0-35.0); Mean Corpuscular Hemoglobin 25.9 pg (27.0-33.0); Mean Corpuscular Volume 79.8 fL (80.0-98.0); Mean Platelet Volume 8.9 fL (9.4-12.3); Monocytes Absolute Auto 0.5 X10*3/uL (0.1-1.2); Neutrophils Absolute Auto 6.4 x10*3/uL (2.0-8.3); Neutrophils Percent Auto 72.1 % (45-73); Platelet Count 437 X10*3/uL (160-400); Red Blood Count 4.94 X10*6/uL (4.20-5.50); Red Cell Distribution Width 14.7 % (11.0-16.0); White Blood Count 8.9 X10*3/uL (4.8-10.8)
[2024-02-23 10:00] LABS: Alanine Aminotransferase 200 U/L (0-31); Albumin Level 4.1 g/dL (3.5-5.0); Alkaline Phosphatase 67 U/L (39-117); Anion Gap 12 (12-20); Aspartate Amino Transferase 114 U/L (5-31); Bilirubin Total 0.4 mg/dL (0.0-1.0); Blood Urea Nitrogen 14 mg/dL (9-16); Carbon Dioxide 29 mmol/L (22-29); Chloride 107 mmol/L (96-108); Cholesterol 117 mg/dL (<200); Estimated Glomerular Filt Rate > 60; Glucose Random 131 mg/dL (60-115); HDL Cholesterol 38 mg/dL (>40); LDL Cholesterol Calculated 64 mg/dL (<100); Potassium 4.6 mmol/L (3.3-5.1); Sodium 143 mmol/L (135-145); Total Protein 7.2 g/dL (6.5-8.0); Triglycerides 77 mg/dL (<150)
[2024-02-23 10:11] LABS: Creatinine Urine 48.14 mg/dL
== END 2024-02-23 08:33 | disposition home or self-care (01) ==
LOC: HO.LAB 08:32
PROVIDERS: Internal Medicine Medical Oncology; PCP Internal Medicine; Visit Provider Physician Assistant
DX: K76.0 Fatty (change of) liver, not elsewhere classified (principal); E11.65 Type 2 diabetes mellitus with hyperglycemia; D75.839 Thrombocytosis, unspecified
CPT/HCPCS: 36415; 80053; 80061; 82570; 85025

== ENCOUNTER 2024-04-19 07:52 | Outpatient (REF) | payer OTHER, SELFPAY ==
[2024-04-19 09:20] LABS: Alanine Aminotransferase 170 U/L (0-31); Albumin Level 4.2 g/dL (3.5-5.0); Alkaline Phosphatase 83 U/L (39-117); Aspartate Amino Transferase 104 U/L (5-31); Bilirubin Direct 0.2 mg/dL (0.0-0.5); Bilirubin Total 0.5 mg/dL (0.0-1.0); Total Protein 7.5 g/dL (6.5-8.0)
== END 2024-04-19 07:53 | disposition home or self-care (01) ==
LOC: HO.LAB 07:52
PROVIDERS: PCP Internal Medicine; Visit Provider Physician Assistant
DX: R79.89 Other specified abnormal findings of blood chemistry (principal)
CPT/HCPCS: 36415; 80076

== ENCOUNTER 2024-04-22 15:50 | Outpatient (AMB) | payer OTHER, SELFPAY ==
--- NOTE | 2024-04-22 15:51 | A.OFFVIS_ITS ---
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 Attempting to eat a healthy diet with calcium and vitamin D and stays active with exercise-walking. Currently sexually active w/. Denies any vaginal dryness or irritation. Last pap smear; unknown. Last mammogram; 02/2024. Colonoscopy, she thinks is due. Denies any family history of breast, ovarian or colon cancer. [facility] Medical History GERD (gastroesophageal reflux disease) Physical exam, pre-employment Sebaceous cyst RUQ pain Cervical polyp Muscle strain of right scapular region H. pylori infection Overweight (BMI 25.0-29.9) Hypertension Hypothyroidism half-way (current) use of insulin Diabetes type 2, uncontrolled Surgical History Hx of tubal ligation Hx of cholecystectomy Family History Unknown No problems noted. 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 Cognitive needs: No Hearing needs: No Vision needs: No Female Reproductive History Menstrual Age of Menarche: 12 Duration of menses: <3 days control method: none Total pregnancies: 5 Full term: 5 Date of Mammogram: 04/27/23 (negative) Review of Systems Const All systems reviewed & are unremarkable except as noted in HPI and below Reports no additional complaints Eyes Reports no additional complaints ENT Reports no additional complaints Card Reports no additional complaints Resp Reports no additional complaints GI Reports as per HPI and Reports no additional complaints Reports as per HPI Musc Reports no additional complaints Skin/Breast Reports system reviewed and no additional complaints, except as documented and Reports as per HPI Neuro Reports no additional complaints Psych Reports no additional complaints Endo Reports no additional complaints Ashish/Lymph Reports no additional complaints Aller/Immun Reports no additional complaints Physical Exam Vital Signs: Last Vital Signs BP 140/70 H 04/22/24 15:55 BMI result Body Mass Index 24.0 Const General: cooperative, healthy appearing and no acute distress Orientation/consciousness: patient oriented x3 HEENT Head: Yes normal to inspection Eyes General: appearance normal, both eyes and all related structures Neck Neck: Yes normal visual inspection Thyroid: Thyroid normal Chest Chest palpation & inspection: normal inspection of the chest and other (no puckering, dimpling, peau de orange, retraction, discharge, masses) Breast/axilla inspection: normal inspection of the breasts and normal inspection of the axillae Breast/axilla palpation: normal palpation of the breasts Resp Effort & Inspection: normal respiratory effort GI Inspection: Yes normal to inspection Palpation (GI): Soft to palpation Rectal Exam - Female: deferred General: Yes bladder normal to palpation External Female Exam: normal external appearance and normal appearance of the urethra Speculum Exam - Vagina: normal appearance of the vagina, normal palpation, normal vaginal discharge and vagina atrophic Speculum Exam - Cervix: normal appearance of the cervix and normal palpation Bimanual exam- vagina & uterus: normal bimanual exam, normal palpation, uterine size normal, bladder normal to palpation, normal palpation and non-tender Bimanual Exam- Adnexa, other: no masses Skin General skin exam: no rashes or lesions noted Rashes: no rashes Neuro General: patient oriented x3 Cognition (Neuro): normal cognition Extrem General: Yes normal to inspection Psych Attitude: cooperative Thought process: Normal thought process present Results Reviewed Results Reviewed: [facility] [address] [place], [place] [address] Ultrasound Report Signed Patient: Pearson Pitts,Denise MR#: [id number] : 1960 Acct:[id number] Age/Sex: 62 / F ADM Date: 04/27/23 Loc: HO.MAMMO Attending Dr: Conor Garcia MD Ordering Physician: Daniela Gutiérrez CNM Date of Service: 04/27/23 Procedure(s): US breast LT limited Accession Number(s): [id number] cc: Daniela Gutiérrez CNM~ EXAMINATION: MM DIAGNOSTIC DIGITAL BREAST TOMOSYNTHESIS, LEFT US DIAGNOSTIC ULTRASOUND BREAST, LEFT CLINICAL INFORMATION: Small palpable area 1:00 left breast noted at routine clinical exam. TC score 6%. COMPARISON: Mammography: 10/05/2022, 02/28/2021, 09/25/2019 TECHNIQUE: Digital breast tomosynthesis is performed in both the craniocaudal and mediolateral oblique views along with computer-aided detection (CAD). Synthesized 2D images are generated from the tomosynthesis. Ultrasound is targeted to the upper and upper outer left breast using grayscale imaging and color Doppler without and with harmonics. FINDINGS: There are scattered areas of fibroglandular density (ACR BI-RADS breast composition Category b). There are no significant masses, abnormal calcifications, or other abnormalities. Parenchymal pattern is similar to prior studies. There is no developing density or architectural abnormality. The axilla and skin contours are unremarkable. No significant changes. Ultrasound demonstrates no cystic or solid mass, architectural abnormality, or focal duct ectasia. No skin thickening or edema tracking in soft tissue planes. Results are discussed with the patient at time of visit, using an cigar bander hand. US/US breast LT limited IMPRESSION: -No mammographic evidence of malignancy. No significant changes from prior studies. -Unremarkable left breast ultrasound. ASSESSMENT: BI-RADS 1: Negative RECOMMENDATION: 1. Patient should be managed based on the clinical impression. If there is still clinically palpable concern, further evaluation may be considered with surgical consult. Decision to proceed with biopsy should be based on clinical grounds and degree of clinical concern. 2. Otherwise, routine annual screening mammography. This patient's information was entered into a reminder system with a target due date for their next mammogram. Dictated By: Shiraz Navarro MD Signed By: <Electronically signed by Shiraz Navarro MD in OV> 04/27/23 1159 DD/ 1142 TD/TT: Event Specialist Food Demonstrator: RAMY Assessment & Plan Assessment & Plan (1) Encounter to discuss test results: Code(s): Z71.2 - Person consulting for explanation of examination or test findings (2) Urinary frequency: Code(s): R35.0 - Frequency of micturition (3) Encounter for well woman exam with routine gynecological exam: Code(s): Z01.419 - Encounter for gynecological examination (general) (routine) without abnormal findings Category: Medical Plan Discussed: Current recommendations for pap smears per ASCCP guidelines. Pap obtained today. Breast awareness, periodic self breast exams and yearly mammogram. Discussed recent ultrasound and mammogram findings they were both benign, advised to call if there is any future breast concerns for an immediate evaluation. Maintain a healthy lifestyle, well balanced diet including Calcium 1,200 mg and Vitamin D 600 IU daily, and routine exercise. Contact the office with any postmenopausal bleeding. Await BV, GC chlamydia and urine culture results. 3+ glucose in urine, discussed results with patient encouraged good diabetic control. Follow up with primary care, and also to discuss colonoscopy planning. Patient verbalizes understanding and agrees to the plan of care. She was given opportunity to ask questions and all questions were answered to the best of my ability. 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 This note is constructed using voice recognition software. While every effort has been made to ensure accuracy, evaluation assistant errors may have been included. Coding Level of Care Code Est Pt Prev Care 40-64y(94312) Diagnoses Encounter to discuss test results Z71.2 Urinary frequency R35.0 Encounter for well woman exam with routine gynecological exam Z01.419
[2024-04-22 15:55] VITALS: BP 140/70; BMI 24.0
== END 2024-04-22 16:47 | disposition home or self-care (01) ==
LOC: HO.HWS 15:50
PROVIDERS: PCP Internal Medicine; Visit Provider Advanced Practice Midwife
DX: Z01.419 Encounter for gynecological examination (general) (routine) without abnormal findings (principal); R35.0 Frequency of micturition
CPT/HCPCS: 99396

== ENCOUNTER 2024-04-22 15:50 | Outpatient (REF) | payer OTHER, SELFPAY ==
[2024-04-23 04:40] LABS: CT PCR NOT DETECTED (Not Detect.); NG PCR NOT DETECTED (Not Detect.)
[2024-04-23 11:14] LABS: Bacterial Vaginosis PCR NEGATIVE (Negative); Candida Group PCR NOT DETECTED (Not Detect); Candida glab krusei PCR DETECTED (Not Detect); Trichomonas vaginalis PCR NOT DETECTED (Not Detect)
[2024-05-01 07:59] LABS: HPV mRNA E6/E7 rflx Not Detected (Not Detected)
== END 2024-04-22 15:51 | disposition home or self-care (01) ==
LOC: HO.LAB 15:50
PROVIDERS: PCP Internal Medicine; Visit Provider Advanced Practice Midwife
DX: Z01.419 Encounter for gynecological examination (general) (routine) without abnormal findings (principal); Z11.51 Encounter for screening for human papillomavirus (HPV); Z20.2 Contact with and (suspected) exposure to infections with a predominantly sexual mode of transmission; R35.0 Frequency of micturition
CPT/HCPCS: 0352U; 0353U; 87086; 87624; 88142; 99396

== ENCOUNTER 2024-05-21 10:10 | Outpatient (AMB) | payer OTHER, SELFPAY ==
--- NOTE | 2024-05-21 10:12 | MHC.OFFWIV ---
Intake Vital Signs 05/21/24 10:14 Height 5 ft 4 in Weight 139 lb BMI 23.9 BP 140/80 H Blood Pressure Location Rt brachial Position Sitting Pulse 80 Pulse Source Pulse Oximeter Pulse Oximetry (%) 97 Oxygen Delivery Method Room Air Intake Visit Reasons: EP left arm pain/chest Intake Note: Patient here for left arm pain that radiates to chest which has been present for 2 weeks. Patient Tobacco Use Status: Never used Tobacco Allergies penicillin V Allergy (Unknown, Verified 05/21/24 10:15) hives Penicillins [PENICILLINS] Allergy (Unknown, Verified 05/21/24 10:15) RASH,DIZZINESS Do you need a note to return to daycare/school/sports/work: No HPI HPI Comments History of Present Illness Details 63-year-old female presents today complaining of chest pain and left arm pain with myalgias for the last 2 weeks. She denies shortness of breath diaphoresis nausea vomiting cough nasal congestion abdominal pain. 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 Denies any particular injury or trauma to the area. Saw her PCP 3 months ago and states that visit was fine with the exception of a higher blood sugar [facility] Medical History GERD (gastroesophageal reflux disease) Physical exam, pre-employment Sebaceous cyst RUQ pain Cervical polyp Muscle strain of right scapular region H. pylori infection Overweight (BMI 25.0-29.9) Hypertension Hypothyroidism retirement (current) use of insulin Diabetes type 2, uncontrolled Surgical History Hx of tubal ligation Hx of cholecystectomy Family History Unknown No problems noted. 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 Cognitive needs: No Hearing needs: No Vision needs: No Female Reproductive History Menstrual Age of Menarche: 12 Review of Systems Const All systems reviewed & are unremarkable except as noted in HPI and below Reports body aches Eyes Reports no additional complaints ENT Reports no additional complaints Card Reports chest pain at rest, Reports chest pain with activity and Reports radiating jaw, neck or arm pain (Pain in the left shoulder and infrascapular region) Resp Reports no additional complaints GI Reports no additional complaints Physical Exam Vital Signs: BMI result Body Mass Index 23.9 Const General: healthy appearing and no acute distress HEENT Head: Yes normal to inspection, Yes normocephalic and Yes atraumatic Ears: hearing grossly normal bilaterally General nose exam: Normal external nose present Face and sinus: Yes normal facial exam Chest Chest palpation & inspection: normal inspection of the chest and normal palpation of entire chest wall Resp Effort & Inspection: normal respiratory effort and able to speak in complete sentences Auscultation: clear to auscultation bilaterally Cardio Rate: regular rate Rhythm: regular rhythm Heart sounds: S1 normal heart sound present and S2 normal heart sound present Peripheral pulses: radial pulses present, posterior tibial pulses present and dorsalis pedis present Extrem Left upper extremity: normal to inspection and shoulder/upper arm Details: inspection abnormal, tenderness and abnormal ROM Details: pain with active ROM and pain with passive ROM Results Reviewed Results Reviewed: EKG performed in the office today showed normal sinus rhythm without evidence of AL Assessment & Plan Assessment & Plan (1) Left shoulder tendinitis: Code(s): M77.8 - Other enthesopathies, not elsewhere classified Plan: Give the patient some Mobic to help with her left shoulder pain and decreased range of motion. She will follow up with her PCP for potential cardiac workup. She will call 911 if severe chest pain while at home. Plan See plan Medications: New meloxicam 7.5 mg PO DAILY 10 tabs 0RF Coding Level of Care Code Est Pt Level 3 (81503) Diagnoses Left shoulder tendinitis M77.8
[2024-05-21 10:14] VITALS: BP 140/80; PULSE 80; O2SAT 97; BMI 23.9
== END 2024-05-21 11:22 | disposition home or self-care (01) ==
PROVIDERS: PCP Internal Medicine; Visit Provider Physician Assistant Medical
DX: M77.8 Other enthesopathies, not elsewhere classified (principal)
CPT/HCPCS: 99213

== ENCOUNTER 2024-05-27 08:27 | Outpatient (REF) | payer OTHER, SELFPAY ==
[2024-05-27 10:04] LABS: Alanine Aminotransferase 215 U/L (0-31); Albumin Level 4.1 g/dL (3.5-5.0); Alkaline Phosphatase 77 U/L (39-117); Anion Gap 14 (12-20); Aspartate Amino Transferase 122 U/L (5-31); Bilirubin Total 0.6 mg/dL (0.0-1.0); Blood Urea Nitrogen 16 mg/dL (9-16); Calcium 10.3 mg/dL (8.4-10.2); Carbon Dioxide 30 mmol/L (22-29); Chloride 104 mmol/L (96-108); Estimated Glomerular Filt Rate > 60; Glucose Random 166 mg/dL (60-115); Potassium 4.6 mmol/L (3.3-5.1); Sodium 143 mmol/L (135-145); Total Protein 7.3 g/dL (6.5-8.0)
== END 2024-05-27 08:28 | disposition home or self-care (01) ==
LOC: HO.LAB 08:27
PROVIDERS: PCP Internal Medicine; Visit Provider Physician Assistant
DX: K58.9 Irritable bowel syndrome, unspecified (principal)
CPT/HCPCS: 36415; 80053

== ENCOUNTER 2024-05-27 13:09 | Outpatient (AMB) | payer OTHER, SELFPAY ==
[2024-05-27 13:27] VITALS: BP 136/62; PULSE 69; O2SAT 98; BMI 24.0
--- NOTE | 2024-05-27 13:27 | MHC.PC.OV ---
Vital Signs 05/27/24 13:27 Height 5 ft 4 in Weight 140 lb BMI 24.0 BP 136/62 Blood Pressure Location Lt brachial Position Sitting Pulse 69 Pulse Source Pulse Oximeter Pulse Oximetry (%) 98 Oxygen Delivery Method Room Air Intake Visit Reasons: 3 Month F/U- NEEDS A1C Arts Administrator Or Manager Required: Yes Arts Administrator Or Manager Language: Dominican Allergies penicillin V Allergy (Unknown, Verified 05/27/24 13:27) hives Penicillins [PENICILLINS] Allergy (Unknown, Verified 05/27/24 13:27) RASH,DIZZINESS Tobacco use date assessed: 02/04/24 Dental Screening Dental Screen Date: 02/04/24 HPI 3 Month F/U- NEEDS A1C HPI Details 63-year-old female with uncontrolled diabetes mellitus hypercholesterolemia GERD hypertension last seen in 02/13/2024. Patient is due for mammogram, colonoscopy is up-to-date. Review of the notes 05/15/2024 was last seen for left arm/chest pain diagnosis of left shoulder tendonitis and was given meloxicam. Jose Nagy [id number] BS has been running 116 am , 130-190 in pm- complains 6 weeks tired and bone painful.PAtient brought in supplements herbal vegetables and PFSH Medical History GERD (gastroesophageal reflux disease) Physical exam, pre-employment Sebaceous cyst RUQ pain Cervical polyp Muscle strain of right scapular region H. 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 1. Little interest or pleasure in doing things: not at all 2. Feeling down, depressed, or hopeless: not at all 3. Trouble falling or staying asleep, or sleeping too much: not at all 4. Feeling tired or having little energy: not at all 5. Poor appetite or overeating: not at all 6. Feeling bad about yourself - or that you are a failure or have let yourself or your family down: not at all 7. Trouble concentrating on things, such as reading the newspaper or watching television: not at all 8. Moving or speaking so slowly that other people could have noticed. Or the opposite - being so fidgety or restless that you have been moving around a lot more than usual: not at all 9. Thoughts that you would be better off or of hurting yourself in some way: not at all Total score: 0 Depression Screening Interpretation: Negative Depression Screening Done: Yes Source: Developed by Drs. Deepak Woodard, Netta Chairez, Juan R Tovar and colleagues, with an educational kimi from [employer]. Thrive Questionnaire Date Thrive assessed: 05/27/24 I am a: Patient What is your living situation today?: I have a steady place to live Within the past 12 months, did the food you bought not last and you didn't have the money to get more?: Never true Within the past 12 months, did you worry whether your food would run out before you got money to buy more?: Never true Do you have trouble paying for medicines?: No Do you have trouble getting transportation to medical appointments?: No Do you have trouble paying your heating and electricity bill?: No Do you have trouble taking care of your child, family member or friend?: No Do you have trouble with day-to-day activities such as bathing, preparing meals, shopping, managing finances, etc.?: No Are you currently unemployed and looking for a job?: No Are you interested in more education?: No Please select the resources that you would like help with: None Currently or been in a relationship where the following occur: No concerns reported THRIVE Score: 0 AUDIT C Alcohol Use Questionnaire (AUDIT-C) 1. How often do you have a drink containing alcohol?: Never 3. How often do you have six or more drinks on one occasion?: Never Total Score: 0 SHAWN-7 AMB Questionnaire SHAWN-7 Date SHAWN - 7 assessed: 02/04/24 Source: Developed by Drs. Deepak Woodard, Netta Chairez, Juan R Tovar and colleagues, with an educational kimi from [employer]. Physical exam (Primary Care) Vital Signs: Last Vital Signs Pulse 69 05/27/24 13:27 BP 136/62 05/27/24 13:27 Pulse Ox 98 05/27/24 13:27 Oxygen Delivery Method Room Air 05/27/24 13:27 BMI result Body Mass Index 24.0 Tobacco/Smoking Status: Tobacco use Status Tobacco use date assessed 02/04/24 05/27/24 13:28 Patient Tobacco Use Status Never used Tobacco 05/27/24 13:28 e-Cigarette/Vaping Use Never Used 05/27/24 13:28 PHQ-9: PHQ-9 Score PHQ-9: Total score 0 05/27/24 13:41 Depression Screening Interpretation: Negative Thrive Assessment: Date of Thrive Assessment Date Thrive assessed 05/27/24 05/27/24 13:28 Currently or been in a relationship where the following occur: No concerns reported Const General: alert; No acute distress Eyes Conjunctivae: conjunctivae normal Resp Auscultation: clear to auscultation bilaterally Cardio Rate: regular rate Rhythm: regular rhythm GI Inspection: Yes normal to inspection Extrem General: Yes normal to inspection and No edema Results AMB Hemoglobin A1c AMB Hemoglobin A1c 8.4 % Last Edit by Jojo Alvarado CMA on 05/27/24 13:43 Assessment and Plan Assessment & Plan (1) Type 2 diabetes mellitus with hyperglycemia: Comment: [facility] Code(s): E11.65 - Type 2 diabetes mellitus with hyperglycemia Plan: Decrease the amount of carbohydrate intake, pasta, bread, rice and potatoes are all sugar and that is aside from all the sweet stuff, remember that fruits are good but they are Sweet also. Hemoglobin A1c goal of less than 6.5. Patient is taking Farxiga Lantus at 8 units once a day Tradjenta 5 mg once a day and repaglinide 0.5 mg twice a day (2) Hypercholesterolemia: Code(s): E78.00 - Pure hypercholesterolemia, unspecified Plan: Avoid fried foods, chicken skin, eggs, butter margarine, pastries and meat. Be it pork or beef they have a lot of cholesterol LDL goal of less than 100 and triglyceride of less than 150. Patient on atorvastatin 20 mg once a day 01/2024 tested. (3) Hypertension: Code(s): I10 - Essential (primary) hypertension Qualifiers: Hypertension type: essential hypertension Qualified Code(s): I10 - Essential (primary) hypertension Plan: Continue with blood pressure medication. Decrease salt intake and exercise on lisinopril 20 mg once a day (4) Hypothyroidism: Code(s): E03.9 - Hypothyroidism, unspecified Qualifiers: Hypothyroidism type: acquired Qualified Code(s): E03.9 - Hypothyroidism, unspecified Plan: Continue with thyroid medication (5) GERD (gastroesophageal reflux disease): Code(s): K21.9 - Gastro-esophageal reflux disease without esophagitis Plan: Avoid the foods that causes that usually spicy foods, tomato products, juices, coffee, soda and foods that your sensitive to. After eating do not lie down, allow 3-4 hours before in lie down. And keep the head of bed above 30 degrees to avoid the acid from going up. (6) LFT elevation: Comment: Reviewed labs liver enzymes normal 01/2023-no change in medications-no EtOH, viral serologies neg-reviewed ultrasound Code(s): R79.89 - Other specified abnormal findings of blood chemistry Plan: Ultrasound doneRight hepatic 0.4 cm echogenic focus is stable. CT scan of 2019 demonstrated right hepatic calcification. Orders: Orders AMB Hemoglobin A1c Today Z13.9 - Encounter for screening, unspecified Medications: New lisinopril 30 mg PO DAILY 30 tabs 4RF I10 - Essential (primary) hypertension Coding Level of Care Code Est Pt Level 4 (02604) Diagnoses Type 2 diabetes mellitus with hyperglycemia E11.65 Hypercholesterolemia E78.00 Essential hypertension I10 Hypertension type: essential hypertension Acquired hypothyroidism E03.9 Hypothyroidism type: acquired GERD (gastroesophageal reflux disease) K21.9 LFT elevation R79.89
== END 2024-05-27 14:08 | disposition home or self-care (01) ==
PROVIDERS: PCP Internal Medicine; Visit Provider Internal Medicine
DX: E11.65 Type 2 diabetes mellitus with hyperglycemia (principal); E78.00 Pure hypercholesterolemia, unspecified; I10 Essential (primary) hypertension; E03.9 Hypothyroidism, unspecified; K21.9 Gastro-esophageal reflux disease without esophagitis; R79.89 Other specified abnormal findings of blood chemistry
CPT/HCPCS: 83036; 99214

== ENCOUNTER 2024-08-08 19:31 | Emergency (ER) | payer OTHER, SELFPAY ==
--- NOTE | ~2024-08-08 | XR_ITS ---
EXAMINATION: XR KNEE, RIGHT CLINICAL INFORMATION: Pain status-post fall. COMPARISON: None available. TECHNIQUE: AP, lateral, and both oblique views of the right knee. FINDINGS: No fracture or joint effusion. Alignment is anatomic. Joint spaces are maintained. No abnormal soft tissue calcification. XR/XR knee LT 4V IMPRESSION: Normal right knee. EXAMINATION: XR KNEE, LEFT CLINICAL INFORMATION: Pain status-post fall. COMPARISON: None available. TECHNIQUE: Four views of the left knee. FINDINGS: No fracture or joint effusion. Alignment is anatomic. Joint spaces are maintained. No abnormal soft tissue calcification. IMPRESSION: Normal left knee. Electronically signed by: Aaron Aguilar MD 08/08/2024 10:03 PM EDT RP
--- NOTE | ~2024-08-08 | CT_ITS ---
EXAMINATION: CT HEAD WITHOUT CONTRAST CT FACIAL BONES WITHOUT CONTRAST CT CERVICAL SPINE WITHOUT CONTRAST CLINICAL INFORMATION: Fall on to face. Left-sided pain. Head strike. Neck pain. COMPARISON: None available. TECHNIQUE: Imaging was performed from the skull base to vertex without intravenous administration of contrast. In addition, helical noncontrast CT imaging was acquired through the cervical spine and facial bones and source images were reviewed along with axial reconstructions and sagittal and coronal MPRs. This CT examination was performed using dose optimization techniques as appropriate, variously including the following: *Automated exposure control. *Adjustment of mA and/or kV according to patient size (this includes techniques or standardized protocols for targeted exams where dose is matched to indication/reason for exam; i.e. extremities or head). *Use of iterative reconstruction technique. DLP: 1018 mGy-cm FINDINGS: Head: There is no evidence of acute intracranial hemorrhage or edematous territorial infarction. Luna-white matter differentiation is preserved. There is no abnormal attenuation within the brain parenchyma. The ventricles are normal in morphology and size. No evidence for obstructive hydrocephalus. No abnormal mass effect or midline shift. No extra-axial fluid collections. No acute soft tissue or osseous abnormalities. Maxillofacial Bones: Mild soft tissue edema/hematoma along the left lower lip/chin. No evidence of maxillofacial bone fractures. The zygomatic arches remain intact. No nasal bone fracture. The nasal septum remains midline. No evidence of mandibular or maxillary fracture. The mandibular condyles remain well-seated in their respective temporal articular grooves. Normal appearance of the intraconal and extraconal fat. No evidence of traumatic injury to the extraocular musculature or globes. Mild mucosal thickening of the paranasal sinuses. The mastoid air cells and middle ear cavities are clear. No layering fluid collections. The left fovea ethmoidalis is higher than the right. Periapical lucency associated with the mandibular left canine. Cervical Spine: The atlantooccipital and atlantoaxial articulations remain well aligned. Straightening of the normal cervical lordosis. Otherwise, there is anatomic alignment of the vertebral bodies and posterior elements. No evidence of acute fracture or subluxation. The vertebral body heights are maintained. Advanced degenerative disc disease at C6-C7. [id number] degenerative disc disease at all at all levels. Facet and uncovertebral joint arthropathy leads to osseous encroachment on the neural foramina at C6-C7. There is no prevertebral soft tissue swelling. The thyroid gland and remaining cervical soft tissues are within normal limits. The lung apices demonstrate no abnormalities. CT/CT cervical spine wo IV con IMPRESSION: 1. No evidence of acute intracranial hemorrhage or edematous territorial infarction. 2. No evidence of acute fracture or traumatic subluxation of the cervical spine. 3. No evidence of acute fracture of the maxillofacial bones. Mild soft tissue edema/hematoma along the left lower lip/chin. Electronically signed by: Jose Saxena DO 08/08/2024 11:09 PM EDT
--- NOTE | ~2024-08-08 | XR_ITS ---
EXAMINATION: XR KNEE, RIGHT CLINICAL INFORMATION: Pain status-post fall. COMPARISON: None available. TECHNIQUE: AP, lateral, and both oblique views of the right knee. FINDINGS: No fracture or joint effusion. Alignment is anatomic. Joint spaces are maintained. No abnormal soft tissue calcification. XR/XR knee RT 4V IMPRESSION: Normal right knee. EXAMINATION: XR KNEE, LEFT CLINICAL INFORMATION: Pain status-post fall. COMPARISON: None available. TECHNIQUE: Four views of the left knee. FINDINGS: No fracture or joint effusion. Alignment is anatomic. Joint spaces are maintained. No abnormal soft tissue calcification. IMPRESSION: Normal left knee. Electronically signed by: Aaron Aguilar MD 08/08/2024 10:03 PM EDT RP
[2024-08-08 20:19] VITALS: BP 184/97; PULSE 115; RESP 18; TEMP 36.6; O2SAT 98; BMI 24.9
--- NOTE | 2024-08-08 20:22 | ED_ITS ---
HPI - General Adult General Chief complaint: Fall Stated complaint: fall Time Seen by Provider: 08/09/24 05:22 Source: patient Mode of arrival: ambulatory Limitations: no limitations History of Present Illness ED Provider: Dr. Ynes Winchester HPI narrative: Patient comes to the emergency room complaining of a mechanical fall. Patient states that she was in her basement, lost her balance and fell. Patient has an abrasion to the left side of the face. Patient states that she landed on her knees. Patient states that she did hit her head, did not lose consciousness, patient does not take blood thinners. Related Data Home Medications ?Medication ?Instructions ?Recorded ?Confirmed blood glucose control high and low #1 ea 09/07/20 01/16/24 solution (FreeStyle Control solution) cholecalciferol (vitamin D3) 50 50 mcg PO DAILY 09/07/20 01/16/24 mcg (2,000 unit) capsule lancets 33 gauge (TRUEplus Lancets) #100 ea 11/29/23 01/16/24 Previous Rx's ?Medication ?Instructions ?Recorded pen needle, diabetic 32 gauge x #100 ea 11/02/20 (BD Corin 2nd Gen Pen Needle) blood sugar diagnostic (FreeStyle #100 ea 04/18/22 Lite Strips) dapagliflozin propanediol 10 mg 10 mg PO DAILY #30 tabs 04/18/22 tablet (Farxiga) pen needle, diabetic 32 gauge x #100 ea 04/18/2232 (BD Ultra-Fine Coirn Pen Needle) metformin 1,000 mg tablet 1,000 mg PO BID 30 days #60 tabs 08/03/22 Levoxyl 137 mcg tablet 137 mcg PO DAILY 30 days #30 tabs 09/07/22 (levothyroxine) linagliptin 5 mg tablet (Tradjenta) 5 mg PO DAILY 30 days #30 tabs 09/07/22 glucose 4 gram chewable tablet 4 g PO Q15M PRN hypoglycemia #20 11/29/23 (Dex4 Glucose) tabs lancets 28 gauge (FreeStyle #100 ea 11/29/23 Lancets) ferrous sulfate 325 mg (65 mg 325 mg PO BID #60 tabs 05/20/24 iron) tablet insulin glargine 100 unit/mL (3 8 unit (0.08 mL) subcut QPM #15 mL 05/21/24 mL) subcutaneous pen (Lantus Solostar U-100 Insulin) meloxicam 7.5 mg tablet 7.5 mg PO DAILY #10 tabs 05/21/24 lisinopril 30 mg tablet 30 mg PO DAILY #30 tabs 05/27/24 pen needle, diabetic 32 gauge x #100 ea 06/17/24 (BD Ultra-Fine Corin Pen Needle) atorvastatin 20 mg tablet 20 mg PO DAILY #30 tabs 06/21/24 repaglinide 0.5 mg tablet 0.5 mg PO BID #90 tabs 06/23/24 pantoprazole 40 mg tablet,delayed 40 mg PO QAM #30 tabs 07/29/24 release Allergies Allergy/AdvReac Type Severity Reaction Status Date / Time penicillin V Allergy Unknown hives Verified 08/08/24 20:23 Penicillins [PENICILLINS] Allergy Unknown RASH,DIZZIN Verified 08/08/24 20:23 ESS Review of Systems Review of Systems: Constitutional : No Weight loss, No Fever, No Chills, No Night Sweats, No Fatigue, No Malaise ENT/Mouth : No Hearing loss, No Ear Pain, No Nasal Congestion, No Sinus Pain, No Hoarseness, No sore throat, No Rhinorrhea, No Swallowing Difficulty Eyes: No Eye Pain, No Swelling, No Redness, No Foreign Body, No Discharge, No Vision Changes Cardiovascular : No Chest Pain, No SOB, No Dyspnea on Exertion, No Orthopnea, No Edema, No Palpitations Respiratory : No Cough, No Sputum, No Wheezing, No Smoke Exposure, No Dyspnea Gastrointestinal : No Nausea, No Vomiting, No Diarrhea, No Constipation, No abdominal Pain, No Hematochezia, No Melena Genitourinary : no irregular bleeding, No Dysuria, No Urinary Frequency, No Hematuria, No Urinary Incontinence, No Urgency, No Flank Pain, No Urinary Flow Changes, No Hesitancy Musculoskeletal : Complaining of bilateral knee pain No Myalgias, No Joint Swelling Skin : Complaining of an abrasion to the left side of the face Neuro : No Weakness, No Numbness, No Paresthesias, No Loss of Consciousness, No Dizziness, No Headache Psych : No Anxiety/Panic, No Depression, No SI/HI/AH/VH, No Social Issues, Heme/Lymph: No Bruising, No Bleeding,No Lymphadenopathy Endocrine : No Polyuria, No Polydipsia, No Temperature Intolerance [facility] Past Medical History Medical History GERD (gastroesophageal reflux disease) Physical exam, pre-employment Sebaceous cyst RUQ pain Cervical polyp Muscle strain of right scapular region H. pylori infection Overweight (BMI 25.0-29.9) Hypertension Hypothyroidism [facility] (current) use of insulin Diabetes type 2, uncontrolled Surgical History Hx of tubal ligation Hx of cholecystectomy Family History Family History Unknown No problems noted. Father Diabetes Heart disease Mother Diabetes Hypertension Heart disease Brother Lung cancer Sister Heart disease Social History Social History Household Members: Spouse and Children Housing: House Are you a primary patient care associate to a significant other at home: No Do you presently have visiting nurse or other home services: No Alcohol intake: never Patient Tobacco Use Status: Never used Tobacco e-Cigarette/Vaping Use: Never Used Second Hand Smoke Exposure: No Advance Directives: No Advance Directives Information Provided: Yes Current occupational status: employed and disabled Current occupation: [employer] Cognitive needs: No Hearing needs: No Vision needs: No Physical Exam ED Vital Signs: Vital Signs - 24 hr 08/08/24 20:19 08/08/24 23:49 08/09/24 02:00 Temperature 97.9 F 97.5 F 98.4 F Pulse Rate 115 H 90 87 Respiratory Rate 18 18 16 Blood Pressure 184/97 H 161/77 H 148/69 H Pulse Oximetry 98 99 97 Oxygen Delivery Method Room Air Room Air Room Air 08/09/24 04:32 Temperature 98.6 F Pulse Rate 89 Respiratory Rate 20 Blood Pressure 150/65 H Pulse Oximetry 99 Oxygen Delivery Method Room Air BMI result Body Mass Index 24.9 Const Other: Appearance: Alert. Oriented X3. No acute distress. Eyes: Pupils equal, round and reactive to light. ENT: Pharynx normal. Neck: Normal inspection. Neck supple. No lymph nodes noted. No crepitus CVS: Normal heart rate and rhythm. Pulses normal. Normal S1 and S2 Respiratory: No respiratory distress. Breath sounds normal. No Wheezing. No rales Abdomen: Soft and nontender. No rigidity. No distention. Skin: Small abrasion to the left side of the face Skin warm and dry. Normal skin color. Normal skin turgor. Extremities: No lower extremity edema. No Lacerations. No Rash Neuro: Oriented X 3. No motor deficit. No sensory deficit. Moving all extremities. No slurred speech. CN 2 through 12 grossly intact Psych: calm, cooperative, normal affect Course Course Course Narrative: This is a Rapid Medical Examination (RME) performed by Aj Alejandra PA-C in triage. Full HPI, ROS, assessment and treatment plan per primary provider in the Main ED. 63 yo urdu speaking female here for eval of left facial pain, neck pain, and bilateral knee pain s/p mechanical fall in her basement today. lost her balance and fell forward, striking her face and both knees. no LOC. no thinners. +ecchymosis noted to left cheek. EOMs intact w/o entrapment or pain. no focal neuro deficits. no midline c spine tenderness or step off. Plan: imaging. Medical Decision Making Medical Decision Making MDM Narrative: -patient's CT scans of the head and neck and face are negative -the x-rays negative -patient ambulatory, normal vitals -patient was given a dose of topical bacitracin for the face Differential Diagnosis Differential Diagnoses: The differential diagnosis associated with the presentation includes (Contusion, abrasion, concussion, intracranial bleed) Admission/Observation Consideration of admission/observation: Escalation of care including admission/observation considered (Given patient's mechanism of fall, presentation, observation was considered) Independent Interpretation I performed an independent interpretation of an: CT Scan Radiology Impression Discussion of test interpretation with radiology: I have reviewed the radiologist's reading. Radiologist Impression: Head: There is no evidence of acute intracranial hemorrhage or edematous territorial infarction. Luna-white matter differentiation is preserved. There is no abnormal attenuation within the brain parenchyma. The ventricles are normal in morphology and size. No evidence for obstructive hydrocephalus. No abnormal mass effect or midline shift. No extra-axial fluid collections. No acute soft tissue or osseous abnormalities. Maxillofacial Bones: Mild soft tissue edema/hematoma along the left lower lip/chin. No evidence of maxillofacial bone fractures. The zygomatic arches remain intact. No nasal bone fracture. The nasal septum remains midline. No evidence of mandibular or maxillary fracture. The mandibular condyles remain well-seated in their respective temporal articular grooves. Normal appearance of the intraconal and extraconal fat. No evidence of traumatic injury to the extraocular musculature or globes. Mild mucosal thickening of the paranasal sinuses. The mastoid air cells and middle ear cavities are clear. No layering fluid collections. The left fovea ethmoidalis is higher than the right. Periapical lucency associated with the mandibular left canine. Cervical Spine: The atlantooccipital and atlantoaxial articulations remain well aligned. Straightening of the normal cervical lordosis. Otherwise, there is anatomic alignment of the vertebral bodies and posterior elements. No evidence of acute fracture or subluxation. The vertebral body heights are maintained. Advanced degenerative disc disease at C6-C7. Kiva-in-jnfimjms degenerative disc disease at all at all levels. Facet and uncovertebral joint arthropathy leads to osseous encroachment on the neural foramina at C6-C7. There is no prevertebral soft tissue swelling. The thyroid gland and remaining cervical soft tissues are within normal limits. The lung apices demonstrate no abnormalities. CT/CT facial bones wo IV con IMPRESSION: 1. No evidence of acute intracranial hemorrhage or edematous territorial infarction. 2. No evidence of acute fracture or traumatic subluxation of the cervical spine. 3. No evidence of acute fracture of the maxillofacial bones. Mild soft tissue edema/hematoma along the left lower lip/chin. Normal left knee Normal right knee Critical Care Time Critical Care Time Critical Care Time: Yes Total Critical Care Time: 30 Attestation: I have personally provided critical care time. Time includes review of lab data, radiology results, discussion with consultants, and monitoring for potential decompensation. Intervention performed as documented. Discharge Plan Discharge Clinical Impression: Fall, Abrasion, Contusion Patient Disposition: Home, Self-Care Instructions: Abrasion (ED), Fall Prevention (ED) Additional Instructions: Please follow-up with your primary care physician tomorrow. If you have any worsening or new symptoms, please return to the emergency room or call 911 Prescriptions: No Action (DME) pen needle, diabetic [BD Corin 2nd Gen Pen Needle] 32 gauge x 5/32 needle See Rx Instructions .MEDSUPPLY Qty: 100 4RF Rx Instructions: once a day metformin 1,000 mg tablet 1,000 mg PO BID 30 Days Qty: 60 5RF levothyroxine [Levoxyl] 137 mcg tablet 137 mcg PO DAILY 30 Days Qty: 30 4RF Tradjenta 5 mg tablet 5 mg PO DAILY 30 Days Qty: 30 4RF ferrous sulfate 325 mg (65 mg iron) Tablet 325 mg PO BID Qty: 60 6RF insulin glargine [Lantus Solostar U-100 Insulin] 100 unit/mL (3 mL) insulin pen 8 unit subcut QPM Qty: 15 0RF Rx Instructions: [facility] ([facility]) pen needle, diabetic [BD Ultra-Fine Corin Pen Needle] 32 gauge x 5/32 needle See Rx Instructions .Route Qty: 100 1RF Rx Instructions: As directed atorvastatin 20 mg tablet 20 mg PO DAILY Qty: 30 1RF repaglinide 0.5 mg tablet 0.5 mg PO BID Qty: 90 0RF Rx Instructions: administer within 15 minutes prior to largest meal of day pantoprazole 40 mg tablet,delayed release (DR/EC) 40 mg PO QAM Qty: 30 3RF glucose [Dex4 Glucose] 4 gram tablet,chewable 4 g PO Q15M PRN (Reason: hypoglycemia) Qty: 20 0RF Rx Instructions: until symptoms of low blood sugar are controlled ([facility]) lancets [TRUEplus Lancets] 33 gauge misc See Rx Instructions .ROUTE TID Qty: 100 Rx Instructions: As directed check BS TID ([facility]) lancets [FreeStyle Lancets] 28 gauge misc See Rx Instructions .ROUTE .MEDSUPPLY Qty: 100 11RF Rx Instructions: As directed three times a day lisinopril 30 mg tablet 30 mg PO DAILY Qty: 30 4RF meloxicam 7.5 mg tablet 7.5 mg PO DAILY Qty: 10 0RF cholecalciferol (vitamin D3) 50 mcg (2,000 unit) capsule 50 mcg PO DAILY ([facility]) FreeStyle Control Solution See Rx Instructions .ROUTE .MEDSUPPLY Qty: 1 Rx Instructions: As directed Farxiga 10 mg tablet 10 mg PO DAILY Qty: 30 6RF ([facility]) FreeStyle Lite Strips Strip See Rx Instructions .ROUTE .MEDSUPPLY Qty: 100 5RF Rx Instructions: 3 times a day ([facility]) pen needle, diabetic [BD Ultra-Fine Corin Pen Needle] 32 gauge x / needle See Rx Instructions .ROUTE .[facility] Qty: 100 3RF Rx Instructions: As directed once daily Print Language: Yakut
--- NOTE | 2024-08-08 20:25 | ECG_ITS ---
Test Reason : fall Blood Pressure : / mmHG Vent. Rate : 096 BPM Atrial Rate : 096 BPM P-R Int : 128 ms QRS Dur : 078 ms QT Int : 332 ms P-R-T Axes : 055 011 052 degrees QTc Int : 419 ms Normal sinus rhythm Normal ECG When compared with ECG of 10-JAN-2022 20:47, No significant change was found Referred By: Pennie Alejandra Electronically Signed By:JOCELYN DO
[2024-08-08 23:49] VITALS: BP 161/77; PULSE 90; RESP 18; TEMP 36.4; O2SAT 99
[2024-08-09 02:00] VITALS: BP 148/69; PULSE 87; RESP 16; TEMP 36.9; O2SAT 97
[2024-08-09 04:32] VITALS: BP 150/65; PULSE 89; RESP 20; TEMP 37; O2SAT 99
[2024-08-09 05:35] VITALS: BP 150/65; PULSE 89; RESP 20; TEMP 37; O2SAT 99
[2024-08-09] MEDS: Bacitracin Oint 0.9 GM PACKET 1 APPL TOPICAL (05:35)
== END 2024-08-09 05:35 | disposition home or self-care (01) ==
PROVIDERS: Emergency Provider Emergency Medicine; PCP Internal Medicine
DX: S00.83XA Contusion of other part of head, initial encounter (principal); S00.81XA Abrasion of other part of head, initial encounter; W01.0XXA Fall on same level from slipping, tripping and stumbling without subsequent striking against object, initial encounter; Y93.9 Activity, unspecified; Y92.018 Other place in single-family (private) house as the place of occurrence of the external cause; Y99.9 Unspecified external cause status; E11.9 Type 2 diabetes mellitus without complications; I10 Essential (primary) hypertension; Z79.4 Long term (current) use of insulin; Z79.899 Other long term (current) drug therapy
CPT/HCPCS: 70450; 70486; 72125; 73564; 93005; 99283; 99284

== ENCOUNTER 2024-08-20 09:34 | Outpatient (AMB) | payer OTHER, SELFPAY ==
[2024-08-20 10:01] VITALS: BP 130/74; PULSE 98; O2SAT 97; BMI 23.7
--- NOTE | 2024-08-20 10:01 | MHC.OFFWIV ---
Intake Vital Signs 08/20/24 10:01 Height 5 ft 4 in Weight 138 lb BMI 23.7 BP 130/74 Blood Pressure Location Rt brachial Position Sitting Pulse 98 Pulse Source Pulse Oximeter Pulse Oximetry (%) 97 Oxygen Delivery Method Room Air Intake Visit Reasons: EP weakness, body ache, head ache, palpitations Intake Note: Patient here for weakness, body/bone pain, very fatigued which has been present for about 1 month now. Patient Tobacco Use Status: Never used Tobacco Allergies penicillin V Allergy (Unknown, Verified 08/20/24 10:06) hives Penicillins [PENICILLINS] Allergy (Unknown, Verified 08/20/24 10:06) RASH,DIZZINESS Do you need a note to return to daycare/school/sports/work: No HPI EP weakness, body ache, head ache, palpitations HPI Details This note is constructed using voice recognition software. While every effort has been made to ensure accuracy, paymaster of purses errors may have been included. Examination completed with the use of dredging inspector services. The patient is a 63 year old female who presents to the clinic today with arthralgias throughout the entire body for the past two months with intermittent palpitations, and a new rash. She notes that she has not had any specific answers for her joint pains, but she did not have them prior to 2 months ago. They seemed to come on gradually, and progressed to constantly. She denies fever, chills, cough, shortness of breath, or any other URI symptoms. She has not tried anything to make it feel better as she is unable to tolerate Motrin. She notes that because of the joint pain, she has had some increased falls and ended up seen in the emergency room due to a fall landing on her face in the last few weeks. She is concerned that her balance is impaired by the joint pain. She also notes that she has had palpitations intermittently for quite some time, which have increased since the onset of the joint pain. She does note that she lives near the [facility] but has not had any known tick bite. Additionally she noticed last night that she had a flat hyperpigmented area to her right upper abdomen beneath her breast. She notes that the area is slightly itchy, but not painful. She has not done anything to resolve it. [facility] Medical History GERD (gastroesophageal reflux disease) Physical exam, pre-employment Sebaceous cyst RUQ pain Cervical polyp Muscle strain of right scapular region H. pylori infection Overweight (BMI 25.0-29.9) Hypertension Hypothyroidism longterm (current) use of insulin Diabetes type 2, uncontrolled Surgical History Hx of tubal ligation Hx of cholecystectomy Family History Unknown No problems noted. 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 Cognitive needs: No Hearing needs: No Vision needs: No Female Reproductive History Menstrual Age of Menarche: 12 Review of Systems Const All systems reviewed & are unremarkable except as noted in HPI and below Physical Exam Vital Signs: Last Vital Signs Pulse 98 08/20/24 10:01 BP 130/74 08/20/24 10:01 Pulse Ox 97 08/20/24 10:01 Oxygen Delivery Method Room Air 08/20/24 10:01 BMI result Body Mass Index 23.7 Const General: cooperative, healthy appearing, comfortable, no acute distress and alert Orientation/consciousness: patient oriented x3 Limitations: no limitations HEENT Head: Yes normal to inspection and Yes normocephalic Ears: hearing grossly normal bilaterally General nose exam: Normal external nose present Face and sinus: Yes normal facial exam and Yes sinuses nontender Mouth: Normal oral and palatal mucosa present and tongue normal Teeth and gingiva: dentition normal Throat: Yes posterior oropharynx normal Eyes General: appearance normal, both eyes and all related structures Neck Neck: Yes normal visual inspection, Yes full ROM and Yes no lymphadenopathy Resp Effort & Inspection: normal respiratory effort and able to speak in complete sentences Auscultation: clear to auscultation bilaterally Cardio Jugular venous distension: no JVD Palpation: normal PMI Rate: regular rate Heart sounds: S1 normal heart sound present, S2 normal heart sound present, no click, no gallops, no murmurs and no rubs GI Inspection: Yes normal to inspection Palpation (GI): Soft to palpation and nontender Percussion: Yes normal to percussion Auscultation: normal bowel sounds Skin Other: Fungal rash beneath right breast. General skin exam: elasticity normal and turgor normal Neuro General: patient oriented x3 Cranial nerves: Yes CN's II-XII intact bilaterally Extrem General: Yes normal to inspection, Yes full ROM, Yes capillary refill normal and Yes normal exam except as noted Psych Appearance: grossly normal Mental Status: mental status grossly normal Speech and movement: Normal speech and movement present Affect: normal affect Results Reviewed Results Reviewed: EKG obtained in office reviewed appears normal sinus rhythm. Assessment & Plan Assessment & Plan (1) Palpitations: Code(s): R00.2 - Palpitations Plan: In office EKG appears normal. Labs ordered to investigate for source including thyroid involvement, infection, tick-borne illness, and electrolyte abnormality. Advised patient that she will need to follow up with her primary care provider, which she already has an appointment pending. Given the intermittent nature and symptoms, higher level of care was not needed at this time, however if she were to have palpitations that were continuous and unresolved, she may benefit from being evaluated in the emergency department. (2) Arthralgia: Code(s): M25.50 - Pain in unspecified joint Qualifiers: Joint pain location: unspecified Qualified Code(s): M25.50 - Pain in unspecified joint Plan: Widespread symptoms for the past 2 months without clear cause. Labs ordered to investigate for source including looking for infectious etiology, thyroid involvement, verses tick-borne disease. (3) Rash: Code(s): R21 - Rash and other nonspecific skin eruption Plan: Fungal appearing rash beneath right breast. We will prescribe nystatin powder for treatment. Advised patient that this does not appear to be related to the other symptoms, however she should follow up with primary care should it worsen or fail to resolve. Orders: Orders Complete Blood Count Auto Diff Today M25.50 - Pain in unspecified joint, R00.2 - Palpitations TSH reflex Free T4 Today M25.50 - Pain in unspecified joint, R00.2 - Palpitations Tick-borne Disease Molecular Today M25.50 - Pain in unspecified joint, R00.2 - Palpitations AMB EKG-In Office Today M25.50 - Pain in unspecified joint, R00.2 - Palpitations Basic Metabolic Panel Today M25.50 - Pain in unspecified joint, R00.2 - Palpitations Medications: New nystatin 1 appl topical BID 15 grams 0RF Coding Level of Care Code Est Pt Level 4 (41571) Diagnoses Palpitations R00.2 Arthralgia, unspecified joint M25.50 Joint pain location: unspecified Rash R21
== END 2024-08-20 13:12 | disposition home or self-care (01) ==
PROVIDERS: PCP Internal Medicine; Visit Provider Registered Nurse
DX: R00.2 Palpitations (principal); M25.50 Pain in unspecified joint; R21 Rash and other nonspecific skin eruption

== ENCOUNTER → 2024-08-20 09:34 | Outpatient (BNVA) | payer OTHER, SELFPAY | PROVIDERS: PCP Internal Medicine ==

== ENCOUNTER 2024-08-20 11:00 | Outpatient (REF) | payer OTHER, SELFPAY ==
[2024-08-20 13:37] LABS: MANUAL DIFF FLAG NO
[2024-08-20 13:43] LABS: Basophils Percent Auto 0.4 % (0-2); Eosinophils Absolute Auto 0.1 X10*3/uL (0.0-0.4); Eosinophils Percent Auto 0.6 % (0-4); Hematocrit 39.9 % (37.0-47.0); Imm Gran Abs Auto 0.04 X10*3/uL (0.00-0.03); Imm Gran Pct Auto 0.4 % (0.0-0.4); Lymphocytes Absolute Auto 1.5 X10*3/uL (1.2-4.9); Mean Corpuscular HGB Conc 32.6 g/dl (31.0-35.0); Mean Corpuscular Hemoglobin 26.3 pg (27.0-33.0); Mean Corpuscular Volume 80.8 fL (80.0-98.0); Mean Platelet Volume 9.4 fL (9.4-12.3); Monocytes Absolute Auto 0.5 X10*3/uL (0.1-1.2); Monocytes Percent Auto 5.1 % (2-11); Neutrophils Percent Auto 78.5 % (45-73); Platelet Count 430 X10*3/uL (160-400); Red Blood Count 4.94 X10*6/uL (4.20-5.50); Red Cell Distribution Width 14.5 % (11.0-16.0); White Blood Count 10.2 X10*3/uL (4.8-10.8)
[2024-08-20 14:36] LABS: Anion Gap 15 (12-20); Blood Urea Nitrogen 11 mg/dL (9-16); Calcium 10.4 mg/dL (8.4-10.2); Carbon Dioxide 29 mmol/L (22-29); Chloride 105 mmol/L (96-108); Estimated Glomerular Filt Rate > 60; Glucose Random 118 mg/dL (60-115); Potassium 4.5 mmol/L (3.3-5.1); Sodium 144 mmol/L (135-145); TSH reflex Free T4 5.13 uIU/mL (0.32-4.0)
[2024-08-20 15:10] LABS: Free T4 (Free Thyroxine) 0.94 ng/dL (0.71-1.85)
[2024-08-21 22:58] LABS: A. Phagocytphilium DNA,RT-PCR NOT DETECTED (NOT DETECTED); Babesia Microti DNA, RT-PCR NOT DETECTED (NOT DETECTED); Borrelia Miyamotoi,DNA RT-PCR NOT DETECTED (NOT DETECTED); E.Chaffeensis DNA RT-PCR NOT DETECTED (NOT DETECTED); Lyme(Borrelia ssp)DNA RT-PCR NOT DETECTED (NOT DETECTED)
== END 2024-08-20 11:01 | disposition home or self-care (01) ==
LOC: HO.HMGCLDS 11:00
PROVIDERS: PCP Internal Medicine; Visit Provider Registered Nurse
DX: R00.2 Palpitations (principal); M25.50 Pain in unspecified joint; R21 Rash and other nonspecific skin eruption
CPT/HCPCS: 36415; 80048; 84439; 84443; 85025; 87468; 87469; 87478; 87484; 87798; 99212

== ENCOUNTER 2024-08-26 13:08 | Outpatient (AMB) | payer OTHER, SELFPAY ==
[2024-08-26 13:12] VITALS: BP 132/74; PULSE 85; O2SAT 99; BMI 24.0
--- NOTE | 2024-08-26 13:12 | A.OFFPC_ITS ---
Vital Signs 08/26/24 13:12 Height 5 ft 4 in Weight 140 lb 0.8 oz BMI 24.0 BP 132/74 Blood Pressure Location Lt brachial Position Sitting Pulse 85 Pulse Source Pulse Oximeter Pulse Oximetry (%) 99 Oxygen Delivery Method Room Air Intake Visit Reasons: Annual PE Intake Note: Patient is here today for a physical. It Admin Required: No Allergies penicillin V Allergy (Unknown, Verified 08/26/24 13:12) hives Penicillins [PENICILLINS] Allergy (Unknown, Verified 08/26/24 13:12) RASH,DIZZINESS Medication List - Last Reconciled 08/26/24 by Conor Garcia MD atorvastatin 20 mg PO DAILY blood glucose control high,low (FreeStyle Control solution) As directed blood sugar diagnostic (FreeStyle Lite Strips) 3 times a day cholecalciferol (vitamin D3) 50 mcg PO DAILY dapagliflozin propanediol (Farxiga) 10 mg PO DAILY ferrous sulfate 325 mg PO BID glucose (Dex4 Glucose) 4 grams PO Q15M PRN insulin glargine (Lantus Solostar U-100 Insulin) 8 units (0.08 mL) subcut QPM lancets (TRUEplus Lancets) As directed check BS TID lancets (FreeStyle Lancets) As directed three times a day linagliptin (Tradjenta) 5 mg PO DAILY 30 days lisinopril 30 mg PO DAILY meloxicam 7.5 mg PO DAILY metformin 1,000 mg PO BID 30 days nystatin 1 appl topical BID pantoprazole 40 mg PO QAM pen needle, diabetic (BD Ultra-Fine Corin Pen Needle) As directed pen needle, diabetic (BD Corin 2nd Gen Pen Needle) once a day pen needle, diabetic (BD Ultra-Fine Corin Pen Needle) As directed once daily repaglinide 0.5 mg PO BID Synthroid (levothyroxine) 150 mcg PO DAILY 30 days NS Tobacco use date assessed: 08/26/24 Dental Screening Dental Screen Date: 08/26/24 Did you have a dental visit in the last 12 months?: Yes Did you have a dental problem in the last 6 months where you did not have access to dental care?: No Was dental information given to patient?: Patient has dentist HPI Annual PE HPI Details 63-year-old female with uncontrolled sunitha betes mellitus hypertension hypercholesterolemia hypothyroidism GERD coming in for physical exam. Patient was last seen in May 2024 noted some liver function elevation and ultrasound done showing hepatic 0.4 cm echogenic focus which is stable. Patient's mammogram is due, up-to-date with colonoscopy. Review of the notes in August 20 had myalgia and body aches and was seen in the Urgent [facility] diagnosis palpitations and blood work requested. In August 09 ER visit due to fall lost her balance and had an abrasion on the left side of the face patient landed on her knees did not lose consciousness x-ray workup has been negative. Last hemoglobin A1c was done in June 02 0.4 in the last cholesterol test was done in 02/13/2024 with an LDL of 64. Last thyroid test recently was 5.13. rick [id number] [phone] ([id number]) Gladys is going to be seen by ENDO. mild dizziness occ. complains of tinnitus. feels tired. declined flu shot. regarding mammo- darci be seeing gyne [facility] Medical History GERD (gastroesophageal reflux disease) Physical exam, pre-employment Sebaceous cyst RUQ pain Cervical polyp Muscle strain of right scapular region H. 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 1. Little interest or pleasure in doing things: not at all 2. Feeling down, depressed, or hopeless: not at all 3. Trouble falling or staying asleep, or sleeping too much: not at all 4. Feeling tired or having little energy: not at all 5. Poor appetite or overeating: not at all 6. Feeling bad about yourself - or that you are a failure or have let yourself or your family down: not at all 7. Trouble concentrating on things, such as reading the newspaper or watching television: not at all 8. Moving or speaking so slowly that other people could have noticed. Or the opposite - being so fidgety or restless that you have been moving around a lot more than usual: not at all 9. Thoughts that you would be better off or of hurting yourself in some way: not at all Total score: 0 Depression Screening Interpretation: Negative Depression Screening Done: Yes 51562 - PHQ-9 Billing: Yes Source: Developed by Drs. Deepak Woodard, Netta Chairez, Juan R Tovar and colleagues, with an educational kimi from [employer]. Thrive Questionnaire Date Thrive assessed: 05/27/24 I am a: Patient What is your living situation today?: I have a steady place to live Within the past 12 months, did the food you bought not last and you didn't have the money to get more?: Never true Within the past 12 months, did you worry whether your food would run out before you got money to buy more?: Never true Do you have trouble paying for medicines?: No Do you have trouble getting transportation to medical appointments?: No Do you have trouble paying your heating and electricity bill?: No Do you have trouble taking care of your child, family member or friend?: No Do you have trouble with day-to-day activities such as bathing, preparing meals, shopping, managing finances, etc.?: No Are you currently unemployed and looking for a job?: No Are you interested in more education?: No Please select the resources that you would like help with: None Currently or been in a relationship where the following occur: No concerns reported THRIVE Score: 0 AUDIT C Alcohol Use Questionnaire (AUDIT-C) 1. How often do you have a drink containing alcohol?: Never 3. How often do you have six or more drinks on one occasion?: Never Total Score: 0 SHAWN-7 AMB Questionnaire SHAWN-7 Date SHAWN - 7 assessed: 08/26/24 Feeling nervous, anxious, or on edge: 0 = Not at all Not being able to stop or control worryin = Several days Worrying too much about different things: 0 = Not at all Trouble relaxin = Not at all Being so restless that it is hard to sit still: 0 = Not at all Becoming easily annoyed or irritable: 0 = Not at all Feeling afraid as if something awful might happen: 0 = Not at all Total SHAWN-7 score (0-4 normal; 5-9 mild; 10-14 moderate; 15-21 severe): 1 Source: Developed by Drs. Deepak Woodard, Netta Chairez, Juan R Tovar and colleagues, with an educational kimi from [employer]. SHAWN-7 Assessment Billing SHAWN-7 Assessment Tool: SHAWN-7 Assessment 97003 Physical exam (Primary Care) Vital Signs: Last Vital Signs Pulse 85 08/26/24 13:12 BP 132/74 08/26/24 13:12 Pulse Ox 99 08/26/24 13:12 Oxygen Delivery Method Room Air 08/26/24 13:12 BMI result Body Mass Index 24.0 Tobacco/Smoking Status: Tobacco use Status Tobacco use date assessed 08/26/24 08/26/24 13:14 Patient Tobacco Use Status Never used Tobacco 08/26/24 13:14 e-Cigarette/Vaping Use Never Used 08/26/24 13:14 PHQ-9: PHQ-9 Score PHQ-9: Total score 0 08/26/24 13:21 Depression Screening Interpretation: Negative Thrive Assessment: Date of Thrive Assessment Date Thrive assessed 05/27/24 08/26/24 13:14 Currently or been in a relationship where the following occur: No concerns reported Const General: alert and awake HENMT Head: Yes normocephalic Ears: external ears normal and TM's normal bilaterally Face and sinus: Yes normal facial exam Mouth: moist mucous membranes Throat: Yes tonsils normal Eyes Conjunctivae: conjunctivae normal Pupils: Equal, round and reactive pupils present and Pupil accommodation reflex normal Direct Ophthalmoscopy: normal light reflex Neck Neck: No lymphadenopathy Thyroid: Thyroid normal Chest Chest palpation & inspection: normal inspection of the chest Resp Effort & Inspection: normal respiratory effort and no audible wheezes Auscultation: clear to auscultation bilaterally, no crackles, no wheezes and lung sounds not diminished Cardio Rate: regular rate Rhythm: regular rhythm Peripheral pulses: radial pulses present and dorsalis pedis present GI Other: patient will see gyne Palpation (GI): no masses Auscultation: normal bowel sounds and normoactive bowel sounds Rectal Exam - Female: deferred Skin General skin exam: no rashes or lesions noted Rashes: no rashes Neuro General: deep tendon reflexes 2+ bilaterally Cranial nerves: Yes Equal, round and reactive pupils present, Yes Midline tongue present and Yes Ability to bilaterally elevate shoulders present Cognition (Neuro): normal cognition Gait exam (Neuro): Normal gait present Motor exam (neuro): 5/5 motor strength present throughout Deep tendon reflexes (DTR's): Right brachioradialis reflex intensity grade: 2+, Left brachioradialis reflex intensity grade: 2+, Right patellar reflex intensity grade: 2+ and Left patellar reflex intensity grade: 2+ Extrem General: No edema Results AMB Hemoglobin A1c AMB Hemoglobin A1c 8.2 % Last Edit by MIGDALIA Henley on 08/26/24 13:25 Results Reviewed Results Reviewed: Laboratory Last Values Hgb A1c (Clinic) 8.2 % (4.0-6.0) H 08/26/24 08:54 Coding Level of Care Code Est Pt Prev Care 40-64y(62056) Diagnoses Annual physical exam Z00.00 Type 2 diabetes mellitus with hyperglycemia, with long-term current use of insulin E11.65; Z79.4 Diabetes mellitus salvage determiner insulin use: with salvage determiner use Acquired hypothyroidism E03.9 Hypothyroidism type: acquired Essential hypertension I10 Hypertension type: essential hypertension Hypercholesterolemia E78.00 Gastroesophageal reflux disease without esophagitis K21.9 Esophagitis presence: without esophagitis Recurrent falls R29.6 Tinnitus of both ears H93.13 Laterality: bilateral Left shoulder tendinitis M77.8 Additional Codes SHAWN-7 Assessment Billing - SHAWN-7 Assessment Tool: SHAWN-7 Assessment 09163 ([id number]) Assessment & Plan Assessment & Plan (1) Annual physical exam: Code(s): Z00.00 - Encounter for general adult medical examination without abnormal findings Category: Medical Plan: Patient is advised to eat healthy, keep well hydrated, keep active and have adequate sleep. 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 Hemoglobin A1c goal of less than 6.5. Patient is on Lantus, Tradjenta, metformin, repaglinide and Farxiga (3) Hypothyroidism: Code(s): E03.9 - Hypothyroidism, unspecified Category: Medical Qualifiers: Hypothyroidism type: acquired Qualified Code(s): E03.9 - Hypothyroidism, unspecified Plan: Patient on Synthroid 150 mcg once a day (4) Hypertension: Code(s): I10 - Essential (primary) hypertension Category: Medical Qualifiers: Hypertension type: essential hypertension Qualified Code(s): I10 - Essential (primary) hypertension Plan: Continue with blood pressure medication. Decrease salt intake and exercise patient takes lisinopril 30 mg once a day (5) Hypercholesterolemia: Code(s): E78.00 - Pure hypercholesterolemia, unspecified Category: Medical Plan: Avoid fried foods, chicken skin, eggs, butter margarine, pastries and meat. Be it pork or beef they have a lot of cholesterol January 2024 last blood work on atorvastatin 20 mg once a day (6) GERD (gastroesophageal reflux disease): Code(s): K21.9 - Gastro-esophageal reflux disease without esophagitis Category: Medical Qualifiers: Esophagitis presence: without esophagitis Qualified Code(s): K21.9 - Gastro-esophageal reflux disease without esophagitis Plan: Avoid the foods that causes that usually spicy foods, tomato products, juices, coffee, soda and foods that your sensitive to. After eating do not lie down, allow 3-4 hours before in lie down. And keep the head of bed above 30 degrees t o avoid the acid from going up. (7) Recurrent falls: Code(s): R29.6 - Repeated falls Category: Medical Plan: Patient is advised to get physical therapy (8) Tinnitus: Code(s): H93.19 - Tinnitus, unspecified ear Category: Medical Qualifiers: Laterality: bilateral Qualified Code(s): H93.13 - Tinnitus, bilateral Plan: Discussed about workup. (9) Left shoulder tendinitis: Code(s): M77.8 - Other enthesopathies, not elsewhere classified Category: Medical Plan: Keep active heating pads will help Orders: Orders AMB Hemoglobin A1c Today E11.65 - Type 2 diabetes mellitus with hyperglycemia PT Evaluation and Treatment Today M77.8 - Other enthesopathies, not elsewhere classified Referrals Speech and Hearing Referral H93.19 - Tinnitus, unspecified ear
== END 2024-08-26 13:53 | disposition home or self-care (01) ==
PROVIDERS: PCP Internal Medicine; Visit Provider Internal Medicine
DX: Z00.00 Encounter for general adult medical examination without abnormal findings (principal); E11.65 Type 2 diabetes mellitus with hyperglycemia; Z79.4 Long term (current) use of insulin; E03.9 Hypothyroidism, unspecified; I10 Essential (primary) hypertension; E78.00 Pure hypercholesterolemia, unspecified; K21.9 Gastro-esophageal reflux disease without esophagitis; R29.6 Repeated falls; H93.13 Tinnitus, bilateral; M77.8 Other enthesopathies, not elsewhere classified

== ENCOUNTER → 2024-08-26 13:08 | Outpatient (BNVA) | payer OTHER, SELFPAY | PROVIDERS: PCP Internal Medicine; Visit Provider Internal Medicine | DX: Z00.01 Encounter for general adult medical examination with abnormal findings (principal); E11.65 Type 2 diabetes mellitus with hyperglycemia; E03.9 Hypothyroidism, unspecified; I10 Essential (primary) hypertension; E78.00 Pure hypercholesterolemia, unspecified; K21.9 Gastro-esophageal reflux disease without esophagitis; R29.6 Repeated falls; H93.13 Tinnitus, bilateral; M77.8 Other enthesopathies, not elsewhere classified; Z79.4 Long term (current) use of insulin | CPT/HCPCS: 83036; 96127; 99396 ==

== ENCOUNTER 2024-09-18 10:15 | Outpatient (AMB) | payer OTHER, SELFPAY ==
[2024-09-18 10:30] VITALS: BP 118/78; BMI 24.0
--- NOTE | 2024-09-18 10:30 | A.OFFVIS_ITS ---
Vital Signs 09/18/24 10:30 Height 5 ft 4 in Weight 140 lb BMI 24.0 BP 118/78 Intake Visit Reasons: breast rash (spreading) Information Interpreted: clinical only Manager Unix: Manager Unix Present Allergies penicillin V Allergy (Unknown, Verified 09/18/24 10:31) hives Penicillins [PENICILLINS] Allergy (Unknown, Verified 09/18/24 10:31) RASH,DIZZINESS Medication List - Last Reconciled 09/18/24 by Tanisha Hendricks CNM atorvastatin 20 mg PO DAILY blood glucose control high,low (FreeStyle Control solution) As directed blood sugar diagnostic (FreeStyle Lite Strips) 3 times a day cholecalciferol (vitamin D3) 50 mcg PO DAILY dapagliflozin propanediol (Farxiga) 10 mg PO DAILY ferrous sulfate 325 mg PO BID fluoxetine 10 mg PO DAILY glucose (Dex4 Glucose) 4 grams PO Q15M PRN insulin glargine (Lantus Solostar U-100 Insulin) 8 units (0.08 mL) subcut QPM lancets (TRUEplus Lancets) As directed check BS TID lancets (FreeStyle Lancets) As directed three times a day levothyroxine (Synthroid) 150 mcg PO DAILY 30 days linagliptin (Tradjenta) 5 mg PO DAILY 30 days lisinopril 30 mg PO DAILY meloxicam 7.5 mg PO DAILY metformin 1,000 mg PO BID 30 days nystatin 1 appl topical BID pantoprazole 40 mg PO QAM pen needle, diabetic (BD Ultra-Fine Corin Pen Needle) As directed pen needle, diabetic (BD Corin 2nd Gen Pen Needle) once a day pen needle, diabetic (BD Ultra-Fine Corin Pen Needle) As directed once daily repaglinide 0.5 mg PO BID Post menopausal: Yes HPI HPI breast rash (spreading): Details: Patient is here because she has had a rash under her breasts for about the last month and it is getting worse she went to the urgent care site in [place] last week and she said they gave her a powder but it did not really help she does not have anymore of it anyway. She is diabetic she is on pills she says sometimes her sugars are high sometimes low she told me her last sure that she checked was 153. 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 Thompson for primary care and she just saw him recently and has an appointment with him for follow-up about 3 months. She had a mammogram last year but not this year. REPLACED BY [facility] Medical History GERD (gastroesophageal reflux disease) Physical exam, pre-employment Sebaceous cyst RUQ pain Cervical polyp Muscle strain of right scapular region H. 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 Father Diabetes Heart disease Mother Diabetes Hypertension Heart disease Brother Lung cancer Sister Heart disease Social History Household Members: Spouse and Children Housing: House Are you a primary career technology teacher to a significant other at home: No Do you presently have visiting nurse or other home services: No Alcohol intake: never Patient Tobacco Use Status: Never used Tobacco e-Cigarette/Vaping Use: Never Used Second Hand Smoke Exposure: No Current occupational status: employed and disabled Current occupation: [employer] Cognitive needs: No Hearing needs: No Vision needs: No Female Reproductive History Menstrual Age of Menarche: 12 control method: permanent sterilization Total pregnancies: 6 Full term: 5 Physical Exam Vital Signs: Last Vital Signs BP 118/78 09/18/24 10:30 BMI result Body Mass Index 24.0 Chest Other: Purplish inflamed semi circular rash underneath both breasts encompassing where tissue touches tissue. Rashes very much consistent with fungal rash/tinea. No skin puckering or dimpling, or any skin changes on the breasts themselves, other than the under side of both breasts consistent with be fungal rash. there is a soft round smooth 3 cm mass left breast around 04:00 o'clock. Assessment & Plan Assessment & Plan (1) Breast mass, left: Code(s): N63.20 - Unspecified lump in the left breast, unspecified quadrant Category: Medical (2) Fungal dermatitis: Code(s): B36.9 - Superficial mycosis, unspecified Category: Medical (3) Breast cancer screening: Code(s): Z12.39 - Encounter for other screening for malignant neoplasm of breast Category: Medical (4) Diabetes: Comment: See note.. Code(s): E11.9 - Type 2 diabetes mellitus without complications Category: Medical Plan I shared with her that I would leave very much that this is a fungal rash and probably exacerbated by elevated blood sugars. I am prescribing Monistat powder for her to use twice a day at least or more often if she needs it underneath the breast to help with symptomatic and also for treatment. In addition I am prescribing fluconazole tablets and she should take 1 tablet today and if she is still itchy and irritated and has evidence of the rash it she probably still have she should repeat the dose in 3 days and I am giving 3 refills on both.. In addition I placed an order for diagnostic mammogram both breasts and I am also placing an order for a ultrasound of the left breast in addition I am also placing a referral to [facility] surgeons to see whenever is available, usually Dr. Wolff or Dr. Watson for discussion of evaluation of the breast mass. Orders: Orders MM tomosynthesis screening BI Today B36.9 - Superficial mycosis, unspecified, E11.9 - Type 2 diabetes mellitus without complications, N63.20 - Unspecified lump in the left breast, unspecified quadrant, Z12.31 - Encounter for screening mammogram for malignant neoplasm of breast, Z12.39 - Encounter for other screening for malignant neoplasm of breast breast complete Today B36.9 - Superficial mycosis, unspecified, E11.9 - Type 2 diabetes mellitus without complications, N63.20 - Unspecified lump in the left breast, unspecified quadrant, Z12.31 - Encounter for screening mammogram for malignant neoplasm of breast, Z12.39 - Encounter for other screening for malignant neoplasm of breast Referrals Breast Surgery Referral B36.9 - Superficial mycosis, unspecified, E11.9 - Type 2 diabetes mellitus without complications, N63.20 - Unspecified lump in the left breast, unspecified quadrant, Z12.39 - Encounter for other screening for malignant neoplasm of breast Medications: New miconazole nitrate 2% 1 appl topical BID 85 grams 3RF fluconazole may repeat second dose 72 hrs after first dose if symptoms persist 150 mg PO Q3D 2 doses 2 tabs 3RF Coding Level of Care Code Est Pt Level 3 (93236) Diagnoses Breast mass, left N63.20 Fungal dermatitis B36.9 Breast cancer screening Z12.39 Diabetes E11.9
== END 2024-09-18 11:30 | disposition home or self-care (01) ==
LOC: HO.HWSM 10:15
PROVIDERS: PCP Internal Medicine; Visit Provider Advanced Practice Midwife
DX: N63.20 Unspecified lump in the left breast, unspecified quadrant (principal); B36.9 Superficial mycosis, unspecified; Z12.39 Encounter for other screening for malignant neoplasm of breast; E11.9 Type 2 diabetes mellitus without complications
CPT/HCPCS: 99213

== ENCOUNTER → 2024-09-18 10:15 | Outpatient (BNVA) | payer OTHER, SELFPAY | PROVIDERS: PCP Internal Medicine; Visit Provider Advanced Practice Midwife | DX: N63.20 Unspecified lump in the left breast, unspecified quadrant (principal); B36.9 Superficial mycosis, unspecified; E11.9 Type 2 diabetes mellitus without complications; Z12.39 Encounter for other screening for malignant neoplasm of breast | CPT/HCPCS: 99212 ==

== ENCOUNTER 2024-10-10 08:58 | Outpatient (REF) | payer OTHER, SELFPAY ==
--- NOTE | ~2024-10-10 | MM_ITS ---
EXAMINATION: MM DIAGNOSTIC DIGITAL BREAST TOMOSYNTHESIS, BILATERAL CLINICAL INFORMATION: Left breast palpable lump felt by patient's physician at 4:00. COMPARISON: Mammography: Comparison is made with relevant prior exams. TECHNIQUE: Digital breast mammography with tomosynthesis is performed in both the craniocaudal and mediolateral oblique views along with computer-aided detection (CAD). Limited left breast ultrasound. FINDINGS: There are scattered areas of fibroglandular density (ACR BI-RADS breast composition Category b). There are no significant masses, abnormal calcifications, or other abnormalities. Targeted color Doppler left breast ultrasound scanning from 2-6 o'clock in the area of the physician felt palpable lump demonstrates normal follicular breast tissue. There is no sonographic abnormality. There is no sonographic finding to correlate with the palpable lump. Results are provided to the patient at time of visit by the technologist. MM/MM tomosynthesis diagnostic BI IMPRESSION: Left: No mammographic or sonographic abnormality in the left breast to account for the patient's palpable lump. Recommend clinical evaluation and follow-up. Right: Negative. ASSESSMENT: BI-RADS BI-RADS 1 - Negative RECOMMENDATION: 1 year F/U This patient's information was entered into a reminder system with a target due date for their next mammogram. Electronically signed by: Concha Ocasio DO 10/10/2024 10:09 AM ANN
== END 2024-10-10 08:59 | disposition home or self-care (01) ==
LOC: HO.MAMMO 08:58
PROVIDERS: PCP Internal Medicine; Visit Provider Advanced Practice Midwife
DX: Z12.31 Encounter for screening mammogram for malignant neoplasm of breast (principal); N63.20 Unspecified lump in the left breast, unspecified quadrant; B36.9 Superficial mycosis, unspecified; E11.9 Type 2 diabetes mellitus without complications
CPT/HCPCS: 76642; 77062; 77066

== ENCOUNTER → 2024-10-10 09:15 | Outpatient (BNV) | payer OTHER, SELFPAY | PROVIDERS: PCP Internal Medicine; Visit Provider Internal Medicine | DX: N63.13 Unspecified lump in the right breast, lower outer quadrant (principal); R92.323 Mammographic fibroglandular density, bilateral breasts | CPT/HCPCS: 76642; 77062; 77066 ==

== ENCOUNTER 2024-10-21 10:24 | Outpatient (AMB) | payer OTHER, SELFPAY ==
[2024-10-21 11:02] VITALS: BP 128/70; PULSE 75; O2SAT 98
--- NOTE | 2024-10-21 11:02 | MHC.OFFWIV ---
Intake Vital Signs 10/21/24 11:02 Weight 137 lb BP 128/70 Blood Pressure Location Rt brachial Position Sitting Pulse 75 Pulse Source Pulse Oximeter Pulse Oximetry (%) 98 Oxygen Delivery Method Room Air Intake Visit Reasons: EP-body ache and weakness Intake Note: Patient here for body pain (joints) and very fatigued and has been falling often which has been going on for about 2 months Patient Tobacco Use Status: Never used Tobacco Allergies penicillin V Allergy (Unknown, Verified 10/21/24 11:10) hives Penicillins [PENICILLINS] Allergy (Unknown, Verified 10/21/24 11:10) RASH,DIZZINESS HPI HPI Comments History of Present Illness Details History of Present Illness The patient is a 63-year-old female presenting with generalized weakness and bone pain. For approximately two months, she has experienced significant weakness throughout her body, impacting her daily activities. Concurrently, she reports diffuse bone pain, which has been a persistent issue. During this period, the patient has also experienced three episodes of falls, potentially related to the weakness she is experiencing. She had a routine physical examination two months ago, after which her primary care physician referred her to physical therapy for further evaluation and management of her symptoms. However, she has not yet attended a session due to scheduling conflicts. Her physician intended for the physical therapy evaluation to identify her strengths and weaknesses and develop an appropriate plan. She was advised to manage her symptoms with ibuprofen, 600 mg every six hours, for pain relief, alongside rest. She initially utilized warm water for relief, but it was recommended that ice be used to reduce inflammation effectively, as inflammation is thought to contribute to her pain. [facility] Medical History GERD (gastroesophageal reflux disease) Physical exam, pre-employment Sebaceous cyst RUQ pain Cervical polyp Muscle strain of right scapular region H. pylori infection Overweight (BMI 25.0-29.9) Hypertension Hypothyroidism detention (current) use of insulin Diabetes type 2, uncontrolled Surgical History Hx of tubal ligation Hx of cholecystectomy Family History Unknown No problems noted. 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 Cognitive needs: No Hearing needs: No Vision needs: No Female Reproductive History Menstrual Age of Menarche: 12 Review of Systems Const All systems reviewed & are unremarkable except as noted in HPI and below Physical Exam Vital Signs: Last Vital Signs Pulse 75 10/21/24 11:02 BP 128/70 10/21/24 11:02 Pulse Ox 98 10/21/24 11:02 Oxygen Delivery Method Room Air 10/21/24 11:02 Const General: cooperative, healthy appearing, comfortable, no acute distress and well developed Orientation/consciousness: patient oriented x3 Limitations: no limitations HEENT Head: Yes normal to inspection Ears: hearing grossly normal bilaterally General nose exam: Normal external nose present Face and sinus: Yes normal facial exam Eyes General: appearance normal, both eyes and all related structures Neck Neck: Yes normal visual inspection and Yes full ROM Resp Effort & Inspection: normal respiratory effort and able to speak in complete sentences Skin General skin exam: no rashes or lesions noted Neuro General: patient oriented x3 Extrem General: Yes normal to inspection Assessment & Plan Assessment & Plan (1) Recurrent falls: Code(s): R29.6 - Repeated falls Plan: For generalized weakness and bone pain, I recommend that the patient follow through with the primary care physician's referral to physical therapy. Attending these sessions will allow for a comprehensive evaluation to accurately assess her strengths and weaknesses and establish an appropriate rehabilitation plan. Additionally, for pain management, the patient should continue taking ibuprofen 600 mg every six hours and apply ice to any inflamed joints. This approach will help in reducing inflammation and alleviating pain until she can receive physical therapy. No further acute interventions or diagnostics are needed from the urgent care perspective at this time. Patient was informed and verbally consented to the use of an ambient scribe for clinic note documentation during this visit. Armenian-speaking attendance officer was used for this visit Coding Level of Care Code Est Pt Level 3 (21541) Diagnoses Recurrent falls R29.6
== END 2024-10-21 13:43 | disposition home or self-care (01) ==
PROVIDERS: PCP Internal Medicine; Visit Provider Physician Assistant
DX: R29.6 Repeated falls (principal)

== ENCOUNTER → 2024-10-21 10:24 | Outpatient (BNVA) | payer OTHER, SELFPAY | PROVIDERS: PCP Internal Medicine; Visit Provider Physician Assistant | DX: R29.6 Repeated falls (principal) | CPT/HCPCS: 99212 ==

== ENCOUNTER 2024-10-27 10:31 | Outpatient (AMB) | payer OTHER, SELFPAY ==
--- NOTE | 2024-10-27 10:43 | A.OFFVIS_ITS ---
Vital Signs 10/27/24 10:46 Height 5 ft 4 in Weight 136 lb 10.986 oz BMI 23.5 BP 140/63 H Blood Pressure Location Lt brachial Pulse 85 Intake Visit Reasons: Valeri patient LFT elevation follow up Intake Note: Denise presents in the office as a Valeri patient for follow up to elevated LFT s. CC: She states she gets pains in the epigatric region and deals with GERD - she states when she is sleeping she gets the acid reflux. Denies irregular bowel movements. Concrete Vault Maker Required: Yes Allergies penicillin V Allergy (Unknown, Verified 10/27/24 10:48) hives Penicillins [PENICILLINS] Allergy (Unknown, Verified 10/27/24 10:48) RASH,DIZZINESS HPI HPI Valeri patient LFT elevation follow up: Details: 63 yr old f here for f/u for abn LFT she has chronic AST and ALT elevation. US 09/17- normal echogenicity liver, calcification noted she has epigastric pain for 2 weeks comes in waves worse with food she has nausea she has acid reflux she takes pantoprazole but not taking it for last 3 weeks as she felt it made her bloating she had h pylori in the past she denies diarrhea or constipation EXAM: GENERAL: The patient is well developed and nontoxic. VITAL SIGNS:see workflow HEENT: Nonicteric sclerae, PERRLA, EOMI. Oropharynx clear. Moist mucous membranes. Conjunctivae appear well perfused. No thyroid mass. CHEST: Chest wall is nontender. HEART: Regular rate and rhythm without murmurs. LUNGS: Clear to auscultation bilaterally. ABDOMEN: Soft, positive bowel sounds, tender epigastrium , no organomegaly.no flank tenderness SKIN: No rash, no excessive bruising, petechiae, or purpura. NEUROLOGIC: Cranial nerves II-XII intact without motor/sensory deficit. Psych: normal affect A/P: 1/ Epigastric pain, stopped PPI ?retained gallstones, h pylori recurrence 2/ abn LFT, large differential could be med related, also high Ca PLAN: 1/ check liver serologies 2/ US liver 3/ might need liver bx 4/ consider egd for ix if needed, and screening colo as due 5/ sent carafate meantime 6/ recheck ca and PO4 PFSH Medical History GERD (gastroesophageal reflux disease) Physical exam, pre-employment Sebaceous cyst RUQ pain Cervical polyp Muscle strain of right scapular region H. pylori infection Overweight (BMI 25.0-29.9) Hypertension Hypothyroidism [facility] (current) use of insulin Diabetes type 2, uncontrolled Surgical History Hx of tubal ligation Hx of cholecystectomy Family History Unknown No problems noted. 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 Cognitive needs: No Hearing needs: No Vision needs: No Female Reproductive History Menstrual Age of Menarche: 12 Physical Exam Vital Signs: Last Vital Signs Pulse 85 10/27/24 10:46 BP 140/63 H 10/27/24 10:46 BMI result Body Mass Index 23.5 Assessment & Plan Assessment & Plan (1) LFT elevation: Comment: Reviewed labs liver enzymes normal 01/2023-no change in medications-no EtOH, viral serologies neg-reviewed ultrasound Code(s): R79.89 - Other specified abnormal findings of blood chemistry Category: Medical Plan: see above (2) TSH elevation: Code(s): R79.89 - Other specified abnormal findings of blood chemistry Category: Medical Plan: see above Orders: Orders US abdomen montano w elastography Today K74.60 - Unspecified cirrhosis of liver, K75.81 - Nonalcoholic steatohepatitis (BRIDGES), R79.89 - Other specified abnormal findings of blood chemistry Aldolase Today R79.89 - Other specified abnormal findings of blood chemistry Creatine Kinase Total Today R79.89 - Other specified abnormal findings of blood chemistry Vitamin D 25-OH Total Today R79.89 - Other specified abnormal findings of blood chemistry Ferritin Today R79.89 - Other specified abnormal findings of blood chemistry Smooth Muscle Antibody Today R79.89 - Other specified abnormal findings of blood chemistry Transglutaminase IgA Today R79.89 - Other specified abnormal findings of blood chemistry Liver Kidney Microsomal Ab Today R79.89 - Other specified abnormal findings of blood chemistry Parathyroid Hormone Intact Today E83.52 - Hypercalcemia, R79. - Other specified abnormal findings of blood chemistry Zinc Today R79.89 - Other specified abnormal findings of blood chemistry Comprehensive Met. Panel Today K75.81 - Nonalcoholic steatohepatitis (BRIDGES), R7. - Other specified abnormal findings of blood chemistry Calcium, Ionized Today E83.52 - Hypercalcemia, R79.89 - Other specified abnormal findings of blood chemistry Hepatitis A,B,C Profile Today R79.89 - Other specified abnormal findings of blood chemistry Alpha 1 Anti-trypsin Today R79.89 - Other specified abnormal findings of blood chemistry KENNY Reflex Titer and Pattern Today R79.82 - Elevated C-reactive protein (CRP), R79. - Other specified abnormal findings of blood chemistry Angiotensin Converting Enzyme Today R79. - Other specified abnormal findings of blood chemistry Phosphorus Today E83.52 - Hypercalcemia, R7. - Other specified abnormal findings of blood chemistry Vitamin D 1,25 dihydroxy Today R79.89 - Other specified abnormal findings of blood chemistry H Pylori Breath Test Today R79.89 - Other specified abnormal findings of blood chemistry Immunoglobulin G Today K52.839 - Microscopic colitis, unspecified, R7. - Other specified abnormal findings of blood chemistry Soluble Liver Ag Autoantibody Today R79.89 - Other specified abnormal findings of blood chemistry Transglutaminase Ab IgG Today G89.29 - Other chronic pain, R10.33 - Periumbilical pain, R79. - Other specified abnormal findings of blood chemistry Mitochondrial Antibody Today R79.89 - Other specified abnormal findings of blood chemistry Parathyroid Hormone Related Pr Today E83.52 - Hypercalcemia, R79.89 - Other specified abnormal findings of blood chemistry Complete Blood Count Auto Diff Today R79. - Other specified abnormal findings of blood chemistry C Reactive Protein Today R79.89 - Other specified abnormal findings of blood chemistry Calcitonin Today R79.89 - Other specified abnormal findings of blood chemistry ANCA Vasculitides Today R79.89 - Other specified abnormal findings of blood chemistry Coding Level of Care Code Est Pt Level 4 (09510) Diagnoses LFT elevation R79.89 TSH elevation R79.89
[2024-10-27 10:46] VITALS: BP 140/63; PULSE 85; BMI 23.5
== END 2024-10-27 11:48 | disposition home or self-care (01) ==
PROVIDERS: PCP Internal Medicine; Visit Provider Internal Medicine Gastroenterology
DX: R79.89 Other specified abnormal findings of blood chemistry (principal)
CPT/HCPCS: 99214

== ENCOUNTER 2024-10-27 10:31 | Outpatient (REF) | payer OTHER, SELFPAY ==
[2024-10-28 15:02] LABS: H Pylori Breath Test Negative (Negative)
== END 2024-10-27 10:32 | disposition home or self-care (01) ==
LOC: HO.LNP 10:31
PROVIDERS: PCP Internal Medicine; Visit Provider Internal Medicine Gastroenterology
DX: R79.89 Other specified abnormal findings of blood chemistry (principal)
CPT/HCPCS: 83013; 99212

== ENCOUNTER 2024-10-28 09:59 | Outpatient (AMB) | payer OTHER, SELFPAY ==
--- NOTE | 2024-10-28 10:00 | MHC.OFFVIS ---
Vital Signs 10/28/24 10:01 Height 5 ft 4 in Weight 136 lb 10.986 oz BMI 23.5 BP 159/71 H Blood Pressure Location Rt brachial Position Sitting Pulse 79 Intake Visit Reasons: unspecified lump left breast Intake Note: This patient presents for unspecified lump left breast. Pt c/o; reports mass on the left breast, reports no pain or discomfort, reports no discharge from nipple. 10/10/2024: MM DIAG 10/10/2024: Breast US Charge Gang Weigher Required: Yes Charge Gang Weigher Language: Sales Team Member Services: Charge Gang Weigher Present (Tri) Information Interpreted: non-clinical & clinical Accompanied by: Self / Same As Patient Allergies penicillin V Allergy (Unknown, Verified 10/28/24 10:08) hives Penicillins [PENICILLINS] Allergy (Unknown, Verified 10/28/24 10:08) RASH,DIZZINESS Medication List - Last Reconciled 10/28/24 by Shaheen Wolff MD atorvastatin 20 mg PO DAILY blood glucose control high,low (FreeStyle Control solution) As directed blood sugar diagnostic (FreeStyle Lite Strips) 3 times a day cholecalciferol (vitamin D3) 50 mcg PO DAILY dapagliflozin propanediol (Farxiga) 10 mg PO DAILY ferrous sulfate 325 mg PO BID fluconazole 150 mg PO Q3D 2 doses fluoxetine 10 mg PO DAILY glucose (Dex4 Glucose) 4 grams PO Q15M PRN insulin glargine (Lantus Solostar U-100 Insulin) 8 units (0.08 mL) subcut QPM lancets (TRUEplus Lancets) As directed check BS TID lancets (FreeStyle Lancets) As directed three times a day levothyroxine (Synthroid) 150 mcg PO DAILY 30 days linagliptin (Tradjenta) 5 mg PO DAILY 30 days lisinopril 30 mg PO DAILY meloxicam 7.5 mg PO DAILY metformin 1,000 mg PO BID miconazole nitrate 2% 1 appl topical BID nystatin 1 appl topical BID pantoprazole 40 mg PO QAM pen needle, diabetic (BD Ultra-Fine Corin Pen Needle) As directed pen needle, diabetic (BD Corin 2nd Gen Pen Needle) once a day pen needle, diabetic (BD Ultra-Fine Corin Pen Needle) As directed once daily repaglinide 0.5 mg PO BID HPI HPI unspecified lump left breast: Details: [age] year old female referred for a question of a left breast mass. She apparently had seen her doctor because of a rash on her left breast last week. She was told that there was a question of a mass on the left breast so she was scheduled for screening studies. She says she really does not feel any mass on her left breast. She denies any changes on the breast as well. She did undergo a mammogram and ultrasound last 10/10/2024. This actually did not reveal any mass on the left breast. Her menarche was at the age of 11. Her 1st was at the age of20. She had 6 pregnancies. She had menopause at the age of 54. She denies any family history of breast cancer. [facility] Medical History GERD (gastroesophageal reflux disease) Physical exam, pre-employment Sebaceous cyst RUQ pain Cervical polyp Muscle strain of right scapular region H. pylori infection Overweight (BMI 25.0-29.9) Hypertension Hypothyroidism residential (current) use of insulin Diabetes type 2, uncontrolled Surgical History Hx of tubal ligation Hx of cholecystectomy Family History Unknown No problems noted. 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 Cognitive needs: No Hearing needs: No Vision needs: No Female Reproductive History Menstrual Age of Menarche: 12 Review of Systems Const Denies chills and Denies fever(s) Card Denies chest pain, Denies dyspnea and Denies dyspnea on exertion Resp Denies cough, Denies dyspnea and Denies dyspnea on exertion GI Denies hematochezia and Denies change in bowel habits Denies hematuria Musc Denies back pain and Denies limited range of motion Neuro Denies focal weakness and Denies convulsions Psych Denies depression and Denies mood swings Physical Exam Vital Signs: BMI result Body Mass Index 23.5 Const General: comfortable and no acute distress Orientation/consciousness: patient oriented x3 Neck Neck: Yes no lymphadenopathy Chest Other: No palpable breast mass, no axillary lymphadenopathy, no nipple or skin changes Resp Auscultation: clear to auscultation bilaterally Cardio Rhythm: regular rhythm GI Palpation (GI): Soft to palpation, nontender and no guarding Neuro General: patient oriented x3 Assessment & Plan Assessment & Plan (1) Breast mass, left: Code(s): N63.20 - Unspecified lump in the left breast, unspecified quadrant Category: Medical Plan: She had been sent for imaging studies of the breast because of a question of a breast mass on the left side. I have reviewed her ultrasound and mammogram and there were no masses seen on either breasts Current physical exam does not suggest any breast mass either or any axillary lymphadenopathy I assured her about the above. I did remind her that she should have a mammogram again after 1 year. She seems to understand the plan well. Coding Level of Care Code New Pt Level 3 (13848) Diagnoses Breast mass, left N63.20
[2024-10-28 10:01] VITALS: BP 159/71; PULSE 79; BMI 23.5
== END 2024-10-28 10:17 | disposition home or self-care (01) ==
PROVIDERS: PCP Internal Medicine; Visit Provider Surgery
DX: N63.20 Unspecified lump in the left breast, unspecified quadrant (principal)
CPT/HCPCS: 99203

== ENCOUNTER → 2024-10-28 09:59 | Outpatient (BNVA) | payer OTHER, SELFPAY | PROVIDERS: PCP Internal Medicine; Visit Provider Surgery | DX: N63.20 Unspecified lump in the left breast, unspecified quadrant (principal) | CPT/HCPCS: 99202 ==

== ENCOUNTER 2024-10-28 10:28 | Outpatient (REF) | payer OTHER, SELFPAY ==
[2024-10-28 11:04] LABS: MANUAL DIFF FLAG NO
[2024-10-28 11:23] LABS: Basophils Percent Auto 0.4 % (0-2); Eosinophils Absolute Auto 0.1 X10*3/uL (0.0-0.4); Eosinophils Percent Auto 1.2 % (0-4); Hematocrit 39.1 % (37.0-47.0); Hemoglobin 12.7 g/dl (12.0-16.0); Imm Gran Abs Auto 0.01 X10*3/uL (0.00-0.03); Imm Gran Pct Auto 0.1 % (0.0-0.4); Lymphocytes Absolute Auto 1.7 X10*3/uL (1.2-4.9); Lymphocytes Percent Auto 19.6 % (20-40); Mean Corpuscular HGB Conc 32.5 g/dl (31.0-35.0); Mean Corpuscular Hemoglobin 26.3 pg (27.0-33.0); Mean Platelet Volume 8.9 fL (9.4-12.3); Monocytes Absolute Auto 0.4 X10*3/uL (0.1-1.2); Monocytes Percent Auto 4.5 % (2-11); Neutrophils Absolute Auto 6.3 x10*3/uL (2.0-8.3); Neutrophils Percent Auto 74.2 % (45-73); Platelet Count 423 X10*3/uL (160-400); Red Blood Count 4.83 X10*6/uL (4.20-5.50); Red Cell Distribution Width 14.5 % (11.0-16.0); White Blood Count 8.4 X10*3/uL (4.8-10.8)
[2024-10-28 11:47] LABS: Parathyroid Hormone Intact 30.5 pg/mL (8.7-77.1)
[2024-10-28 12:02] LABS: HBS Num1 213.28 mIU/mL (0-7.99); HBc Num1 8.77 S/CO (0.00-0.79); Hepatitis A Antibody IgM 0.29 Index (0-0.79); Hepatitis B Surface Antigen Negative (Negative); ~HepC Num1 0.11 S/CO (0.00-0.79); ~Hepatitis A Antibody IgM Nonreactive (Nonreactive); ~Hepatitis B Surface Antibody REACTIVE (Nonreactive); ~Hepatitis C Antibody Nonreactive (Nonreactive)
[2024-10-28 12:05] LABS: Free T4 (Free Thyroxine) 1.19 ng/dL (0.71-1.85)
[2024-10-28 12:19] LABS: Alanine Aminotransferase 270 U/L (0-31); Albumin Level 4.3 g/dL (3.5-5.0); Alkaline Phosphatase 72 U/L (39-117); Anion Gap 11 (12-20); Aspartate Amino Transferase 158 U/L (5-31); Bilirubin Total 0.4 mg/dL (0.0-1.0); Blood Urea Nitrogen 11 mg/dL (9-16); C Reactive Protein 0.15 mg/dL (< or = 0.50); Calcium 10.3 mg/dL (8.4-10.2); Carbon Dioxide 29 mmol/L (22-29); Chloride 105 mmol/L (96-108); Estimated Glomerular Filt Rate > 60; Ferritin 61 ng/mL (10-250); Glucose Random 112 mg/dL (60-115); Phosphorus 3.1 mg/dL (2.7-4.5); Sodium 141 mmol/L (135-145); Thyroid Stimulating Hormone 2.88 uIU/mL (0.32-4.0); Total Protein 7.5 g/dL (6.5-8.0); Vitamin D 25-OH Total 41.9 ng/mL (>30)
[2024-10-28 14:24] LABS: HBc Num2 9.15 S/CO; HBc Num3 9.05 S/CO; Hepatitis B Core Antibody Reactive (Nonreactive)
[2024-10-29 16:14] LABS: Immunoglobulin G 1263 mg/dL (600-1540)
[2024-10-29 17:34] LABS: Myeloperoxidase Antibody <1.0 AI; Proteinase 3 PR3 Antibodies <1.0 AI
[2024-10-29 17:43] LABS: Transglutaminase Ab IgG <1.0 U/mL; Transglutaminase IgA <1.0 U/mL
[2024-10-30 04:24] LABS: Alpha 1 Anti-trypsin 165 mg/dL (83-199)
[2024-10-30 11:29] LABS: Calcium, Ionized 5.5 mg/dL (4.7-5.5)
[2024-10-30 12:49] LABS: Mitochondrial Antibodies NEGATIVE (NEGATIVE)
[2024-10-31 09:38] LABS: ANA Pattern 2 Nuclear, Centromere; ANA Titer 2 1:40 titer; Anti Nuclear Antibody Pattern Nuclear, Speckled; Anti Nuclear Antibody Screen POSITIVE (NEGATIVE); Anti Nuclear Antibody Titer 1:40 titer
[2024-10-31 16:49] LABS: Smooth Muscle Antibody <20 U (<20)
[2024-10-31 21:33] LABS: Calcitonin <2 pg/mL (<=5)
[2024-10-31 23:19] LABS: Zinc 73 mcg/dL (60-130)
[2024-11-01 12:38] LABS: Liver Kidney Microsomal Ab <=20.0 U (<=20.0)
[2024-11-02 05:54] LABS: VITAMIN D (1,25 OH) D3 47 pg/mL; Vit D (1,25-Dihydroxy) Total 47 pg/mL (18-72); Vitamin D (1,25 OH) D2 <8 pg/mL
[2024-11-03 23:29] LABS: Soluble Liver Ag Autoantibody <20.1 U (0.0-20.0)
[2024-11-04 05:03] LABS: Angiotensin Converting Enzyme 10.8 U/L (9-67)
[2024-11-05 13:29] LABS: Aldolase 42.5 U/L (<=8.1)
[2024-11-06 17:14] LABS: Parathyroid Hormone Related Pr 13 pg/mL (11-20)
== END 2024-10-28 10:29 | disposition home or self-care (01) ==
LOC: HO.LAB 10:28
PROVIDERS: PCP Internal Medicine; Visit Provider Internal Medicine Gastroenterology
DX: E03.9 Hypothyroidism, unspecified (principal); R79.89 Other specified abnormal findings of blood chemistry; R79.82 Elevated C-reactive protein (CRP); R10.33 Periumbilical pain; G89.29 Other chronic pain; E83.52 Hypercalcemia; K75.81 Nonalcoholic steatohepatitis (NASH); K52.839 Microscopic colitis, unspecified
CPT/HCPCS: 36415; 80053; 82085; 82103; 82164; 82306; 82308; 82330; 82550; 82652; 82728; 82784; 83519; 83520; 83970; 84100; 84439; 84443; 84630; 85025; 86015; 86021; 86038; 86039; 86140; 86364; 86376; 86381; 86704; 86706; 86709; 86803; 87340

== ENCOUNTER 2024-11-05 10:09 | Outpatient (RCR) | payer OTHER, SELFPAY ==
--- NOTE | 2024-11-05 11:03 | MHC.PT.EP ---
[facility] [place] Office [place] Office [place] Office [address] Azul Chavez [address] [phone] F: [phone] F: [phone] F: [phone] F: [phone] Physical Therapy Plan of Care Date of Evaluation: 11/05/24 Date of Surgery: Diagnosis: bilateral Assessment: Patient is a 63 year old R handed Venezuelan speaking female who presents with s/s consistent with bilateral knee pain. 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 Patient past medical history includes OA, asthma and DM among other comorbidities. Current impairments include pain, balance, ROM, strength, activity tolerance and functional mobility. Functional limitations include decreased ability to walk, stand, negotiate stairs, transfer and be active at home and in the community. Patient is motivated with good rehab potential. Skilled PT will address impairments and functional limitations in order to achieve goals. Frequency and Duration: The patient will be seen 2x/week for 5 weeks Short Term Goals: AROM 0-128 b/l - 3 weeks I with HEP -2 weeks SLB > 5 seconds b/l - 3 weeks Shelter Goals: Able to walk 20 minutes without increased pain - 5 weeks Strength 4/5 grossly - 5 weeks SLB > 10 seconds b/l - 5 weeks No recent falls for 4 weeks - 5 weeks max pain with ADLs 2/10 - 5 weeks Treatment Plan: Modalities to reduce pain, spasms and effusion. Manual therapy to restore motion and function. Therapeutic exercise to improve strength and flexibility. Neuromuscular re-education for posture and balance. Therapeutic activities to return to functional activities of daily living. Electronically signed by: Chauncey Eastman, PT Please sign and return to therapist. Thank you for your referral.
--- NOTE | 2025-02-18 10:41 | MHC.PT.DC ---
[facility] [place] Office [place] Office [place] Office [address] Azul Chavez [address] [phone] F: [phone] F: [phone] F: [phone] F: [phone] Physical Therapy Discharge Report Diagnosis: bilateral Date of Surgery: Date of Evaluation: 11/05/24 Date of Discharge: 11/20/24 Treatments to Date: 1 Cancellations to Date: No Shows to Date: Discharge Status: Patient Elected to Stop Discharge Summary: Patient is a 63 year old R handed Mozambican speaking female who presents with s/s consistent with bilateral knee pain. 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 Patient past medical history includes OA, asthma and DM among other comorbidities. Current impairments include pain, balance, ROM, strength, activity tolerance and functional mobility. Functional limitations include decreased ability to walk, stand, negotiate stairs, transfer and be active at home and in the community. Patient is motivated with good rehab potential. Skilled PT will address impairments and functional limitations in order to achieve goals. Electronically signed by: Chauncey Eastman, PT Please sign and return to therapist. Thank you for your referral.
== END 2025-02-18 10:41 | disposition home or self-care (01) ==
LOC: HO.PTCHIC 10:09
PROVIDERS: PCP Internal Medicine; Visit Provider Internal Medicine
DX: M77.8 Other enthesopathies, not elsewhere classified (principal); M25.561 Pain in right knee; M25.562 Pain in left knee; R26.9 Unspecified abnormalities of gait and mobility
CPT/HCPCS: 97110; 97162

== ENCOUNTER 2024-11-20 13:38 | Outpatient (AMB) | payer OTHER, SELFPAY ==
[2024-11-20 13:41] VITALS: BP 118/72; PULSE 71; O2SAT 96; BMI 23.2
--- NOTE | 2024-11-20 13:41 | A.OFFPC_ITS ---
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 attack Manager Technical Services Required: No Accompanied by: Daughter Allergies penicillin V Allergy (Unknown, Verified 11/20/24 13:44) hives Penicillins [PENICILLINS] Allergy (Unknown, Verified 11/20/24 13:44) RASH,DIZZINESS Medication List - Last Reconciled 11/20/24 by Conor Garcia MD aspirin (Adult Low Dose Aspirin) 81 mg PO DAILY atorvastatin 80 mg PO BEDTIME blood glucose control high,low (FreeStyle Control solution) As directed blood sugar diagnostic (FreeStyle Lite Strips) 3 times a day cholecalciferol (vitamin D3) 50 mcg PO DAILY dapagliflozin propanediol (Farxiga) 10 mg PO DAILY ferrous sulfate 325 mg PO BID fluoxetine 10 mg PO DAILY glucose (Dex4 Glucose) 4 grams PO Q15M PRN insulin glargine (Lantus Solostar U-100 Insulin) 8 units (0.08 mL) subcut QPM lancets (TRUEplus Lancets) As directed check BS TID lancets (FreeStyle Lancets) As directed three times a day levothyroxine (Synthroid) 150 mcg PO DAILY 30 days linagliptin (Tradjenta) 5 mg PO DAILY 30 days meloxicam 7.5 mg PO DAILY metformin 1,000 mg PO BID metoprolol succinate ER 50 mg PO DAILY miconazole nitrate 2% 1 appl topical BID nystatin 1 appl topical BID pen needle, diabetic (BD Ultra-Fine Corin Pen Needle) As directed pen needle, diabetic (BD Corin 2nd Gen Pen Needle) once a day pen needle, diabetic (BD Ultra-Fine Corin Pen Needle) As directed once daily ticagrelor (Brilinta) 90 mg PO BID Tobacco use date assessed: 08/26/24 Dental Screening Dental Screen Date: 08/26/24 HPI [facility] 11/09 heart attack HPI Details The patient is a 63-year-old female presenting with hyperglycemia and cardiovascular concerns. She had previously experienced chest pressure, which led to a hospital visit due to concern for a cardiac event. A catheterization procedure identified blockage in the left anterior descending artery. The patient expressed emotional distress and anxiety associated with these events, which have been attributed to occasional panic attacks. The patient has a history of Type 2 Diabetes Mellitus, with current hemoglobin A1c levels at 8.4%, indicating inadequate glycemic control. The patient has been advised to maintain an A1c below 6.5%. Attempts to control blood glucose have included dietary modifications, such as eliminating rice from the diet and significant changes in other carbohydrate consumption. Despite numerous oral hypoglycemic agents, elevated glucose remains an issue. Hyperlipidemia is being managed with atorvastatin 80 mg. The patient understands the necessity of this medication to prevent further cardiovascular issues, along with the daily use of aspirin and other cardioprotective agents to prevent stent thrombosis. Non-alcoholic fatty liver disease was noted during the visit, with a recommendation for dietary adjustments to manage liver health. The patient acknowledges the importance of lifestyle adaptations, including increased physical activity and reduced carbohydrate intake, to manage both diabetes and liver health. [facility] Medical History (Updated 11/20/24 @ 14:03 by Conor Garcia MD) GERD (gastroesophageal reflux disease) Physical exam, pre-employment Sebaceous cyst RUQ pain Cervical polyp Muscle strain of right scapular region H. 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 Deepak Woodard, Netta Chairez, Juan R Tovar and colleagues, with an educational kimi from [employer]. Physical exam (Primary Care) Vital Signs: Last Vital Signs Pulse 71 11/20/24 13:41 BP 118/72 11/20/24 13:41 Pulse Ox 96 11/20/24 13:41 Oxygen Delivery Method Room Air 11/20/24 13:41 BMI result Body Mass Index 23.2 Tobacco/Smoking Status: Tobacco use Status Tobacco use date assessed 08/26/24 11/20/24 13:50 Patient Tobacco Use Status Never used Tobacco 11/20/24 13:50 e-Cigarette/Vaping Use Never Used 11/20/24 13:50 Thrive Assessment: Date of Thrive Assessment Date Thrive assessed 05/27/24 11/20/24 13:50 Const General: alert; No acute distress Eyes Conjunctivae: conjunctivae normal Resp Auscultation: clear to auscultation bilaterally Cardio Rate: regular rate Rhythm: regular rhythm GI Inspection: Yes normal to inspection Extrem General: Yes normal to inspection and No edema Office Procedures Flu Questionnaire Does the patient have a severe egg allergy?: No Results AMB Hemoglobin A1c AMB Hemoglobin A1c 8.4 % Last Edit by MIGDALIA Lazaro on 11/20/24 14:0 3 Immunizations Fluarix Triv [id number] (PF) 45 mcg (15 mcg x 3)/0.5 mL IM syringe Performing Provider: Conor Garcia MD [facility] Documented (not given) by: MIGDALIA Lazaro on 11/20/24 13:56 Reason Not Given: Allergic to Vaccine Ingredient Results Reviewed Results Reviewed: Laboratory Last Values Hgb A1c (Clinic) 8.4 % (4.0-6.0) H 11/20/24 13:56 Coding Level of Care Code Est Pt Level 4 (52937) Complex EM visit Add On G2211 Diagnoses Type 2 diabetes mellitus with hyperglycemia, with long-term current use of insulin E11.65; Z79.4 Diabetes mellitus long term care administrator insulin use: with fpc use Essential hypertension I10 Hypertension type: essential hypertension Acquired hypothyroidism E03.9 Hypothyroidism type: acquired Hypercholesterolemia E78.00 Gastroesophageal reflux disease without esophagitis K21.9 Esophagitis presence: without esophagitis STEMI (ST elevation myocardial infarction) I21.3 Coronary artery disease (CAD) excluded Z03.89 Assessment & Plan Assessment & Plan (1) Type 2 diabetes mellitus with hyperglycemia: Comment: [facility] Code(s): E11.65 - Type 2 diabetes mellitus with hyperglycemia Category: Medical Qualifiers: Diabetes mellitus fpc insulin use: with long term care administrator use Qualified Code(s): E11.65 - Type 2 diabetes mellitus with hyperglycemia; Z79.4 - 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 (2) Hypertension: Code(s): I10 - Essential (primary) hypertension Category: Medical Qualifiers: Hypertension type: essential hypertension Qualified Code(s): I10 - Essential (primary) hypertension (3) Hypothyroidism: Code(s): E03.9 - Hypothyroidism, unspecified Category: Medical Qualifiers: Hypothyroidism type: acquired Qualified Code(s): E03.9 - Hypothyroidism, unspecified (4) Hypercholesterolemia: Code(s): E78.00 - Pure hypercholesterolemia, unspecified Category: Medical (5) GERD (gastroesophageal reflux disease): Code(s): K21.9 - Gastro-esophageal reflux disease without esophagitis Category: Medical Qualifiers: Esophagitis presence: without esophagitis Qualified Code(s): K21.9 - Gastro-esophageal reflux disease without esophagitis (6) STEMI (ST elevation myocardial infarction): Comment: 11/09/[address] Jason Code(s): I21.3 - ST elevation (STEMI) myocardial infarction of unspecified site Category: Medical (7) Coronary artery disease (CAD) excluded: Code(s): Z03.89 - Encounter for observation for other suspected diseases and conditions ruled out Category: Medical Plan - Continue atorvastatin 80 mg for hyperlipidemia management. - Maintain daily aspirin therapy for cardiovascular protection. - Prescribe metoprolol for heart rate and blood pressure control. - Educate the patient on lifestyle modification, specifically dietary changes to reduce carbohydrate intake and increase physical activity, emphasizing the impact on both diabetes and liver disease. - Plan for follow-up with cardiology, scheduled for the , for ongoing coronary artery disease management. - Monitor hemoglobin A1c every three months to evaluate diabetes management progress. - Address anxiety and panic attacks as needed with supportive interventions. - Advise avoidance of foods high in cholesterol, suggesting a focus on greens and a high-fiber diet to support liver health. - Encourage consistent exercise to manage both diabetes and overall well-being. - Recommend immunization updates consistent with current guidelines, noting allergy to influenza vaccine. Orders: Orders Influenza [id number] Immunization Today Z23 - Encounter for immunization Free T4 (Free Thyroxine) Today Z03.89 - Encounter for observation for other suspected diseases and conditions ruled out Vitamin D 25-OH Total Today Z03.89 - Encounter for observation for other suspected diseases and conditions ruled out Magnesium Today Z03. - Encounter for observation for other suspected diseases and conditions ruled out Microalbumin, Random (w Creat) Today E11.65 - Type 2 diabetes mellitus with hyperglycemia, Z03. - Encounter for observation for other suspected diseases and conditions ruled out Creatinine Urine Today E11.65 - Type 2 diabetes mellitus with hyperglycemia, Z03. - Encounter for observation for other suspected diseases and conditions ruled out AMB Hemoglobin A1c Today E11.9 - Type 2 diabetes mellitus without complications Complete Blood Count Auto Diff Today Z03. - Encounter for observation for other suspected diseases and conditions ruled out Comprehensive Met. Panel Today Z03. - Encounter for observation for other suspected diseases and conditions ruled out Thyroid Stimulating Hormone Today Z03.89 - Encounter for observation for other suspected diseases and conditions ruled out Lipid Panel Today E78.00 - Pure hypercholesterolemia, unspecified, Z03. - Encounter for observation for other suspected diseases and conditions ruled out Vitamin B12 and Folate Today Z03. - Encounter for observation for other suspected diseases and conditions ruled out Hemoglobin A1c Today Z03. - Encounter for observation for other suspected diseases and conditions ruled out UA CC w/rflx Micro + Cult Today R30.0 - Dysuria, Z03. - Encounter for observation for other suspected diseases and conditions ruled out
== END 2024-11-20 14:36 | disposition home or self-care (01) ==
PROVIDERS: PCP Internal Medicine; Visit Provider Internal Medicine
DX: E11.65 Type 2 diabetes mellitus with hyperglycemia (principal); Z79.4 Long term (current) use of insulin; I21.3 ST elevation (STEMI) myocardial infarction of unspecified site; E11.9 Type 2 diabetes mellitus without complications; I10 Essential (primary) hypertension; E03.9 Hypothyroidism, unspecified; E78.00 Pure hypercholesterolemia, unspecified; K21.9 Gastro-esophageal reflux disease without esophagitis; Z03.89 Encounter for observation for other suspected diseases and conditions ruled out

== ENCOUNTER → 2024-11-20 13:38 | Outpatient (BNVA) | payer OTHER, SELFPAY | PROVIDERS: PCP Internal Medicine; Visit Provider Internal Medicine | DX: E11.65 Type 2 diabetes mellitus with hyperglycemia (principal); K76.0 Fatty (change of) liver, not elsewhere classified; I10 Essential (primary) hypertension; E03.9 Hypothyroidism, unspecified; E78.00 Pure hypercholesterolemia, unspecified; K21.9 Gastro-esophageal reflux disease without esophagitis; I21.3 ST elevation (STEMI) myocardial infarction of unspecified site; E78.5 Hyperlipidemia, unspecified; R30.0 Dysuria; Z79.4 Long term (current) use of insulin; Z28.04 Immunization not carried out because of patient allergy to vaccine or component; Z03.89 Encounter for observation for other suspected diseases and conditions ruled out | CPT/HCPCS: 83036; 99212 ==

== ENCOUNTER 2024-11-23 05:24 | Emergency (ER) | payer OTHER, SELFPAY ==
[2024-11-23] VITALS (8 sets, daily range): BP systolic 136–166; BP diastolic 59–94; PULSE 70–127; RESP 14–19; TEMP 36.7–36.9; O2SAT 96–99; BMI 22.5
--- NOTE | ~2024-11-23 | XR_ITS ---
CLINICAL HISTORY: CP 1 view chest x-ray Comparison: 11/15/2022 Findings: Portions of the exam are obscured by overlying material. No consolidation or effusion. Heart size is normal. No acute fracture. IMPRESSION: 1. No acute findings. This document has been electronically signed by: David Matthews MD on 11/23/2024 06:44:24
--- NOTE | 2024-11-23 05:25 | ECG_ITS ---
Test Reason : CHEST PAIN Blood Pressure : / mmHG Vent. Rate : 070 BPM Atrial Rate : 070 BPM P-R Int : 132 ms QRS Dur : 082 ms QT Int : 432 ms P-R-T Axes : 047 033 121 degrees QTc Int : 466 ms Normal sinus rhythm T wave abnormality, consider anterolateral ischemia Abnormal ECG When compared with ECG of 08-AUG-2024 20:33, T wave inversion now evident in Anterolateral leads Referred By: Generic ED Physician Electronically Signed By:CAROLINA HOYT MD
[2024-11-23 05:45] LABS: MANUAL DIFF FLAG NO
[2024-11-23 05:46] LABS: Basophils Absolute Auto 0.1 X10*3/uL (0.0-0.2); Basophils Percent Auto 0.5 % (0-2); Eosinophils Absolute Auto 0.2 X10*3/uL (0.0-0.4); Eosinophils Percent Auto 1.6 % (0-4); Hematocrit 37.7 % (37.0-47.0); Hemoglobin 12.9 g/dl (12.0-16.0); Imm Gran Abs Auto 0.03 X10*3/uL (0.00-0.03); Imm Gran Pct Auto 0.3 % (0.0-0.4); Lymphocytes Absolute Auto 1.9 X10*3/uL (1.2-4.9); Lymphocytes Percent Auto 17.6 % (20-40); Mean Corpuscular HGB Conc 34.2 g/dl (31.0-35.0); Mean Corpuscular Hemoglobin 26.8 pg (27.0-33.0); Mean Corpuscular Volume 78.4 fL (80.0-98.0); Mean Platelet Volume 8.8 fL (9.4-12.3); Monocytes Absolute Auto 0.6 X10*3/uL (0.1-1.2); Monocytes Percent Auto 5.2 % (2-11); Neutrophils Absolute Auto 8.2 x10*3/uL (2.0-8.3); Neutrophils Percent Auto 74.8 % (45-73); Platelet Count 512 X10*3/uL (160-400); Red Blood Count 4.81 X10*6/uL (4.20-5.50); Red Cell Distribution Width 14.3 % (11.0-16.0)
--- NOTE | 2024-11-23 05:48 | ED.CHESTPAIN ---
HPI - Chest Pain General Chief Complaint: Chest Pain Stated Complaint: chest pain Time Seen by Provider: 11/23/24 05:38 Source: patient and family Mode of arrival: ambulatory Limitations: no limitations History of Present Illness ED Provider: Dr. Ynes Winchester HPI narrative: Patient comes to the emergency room complaining of intermittent chest pain for the last 7 hours. Patient states that at this time she has no pain at all, no shortness of breath. However, patient had a myocardial infarction on 11/09/2024, admitted to [facility]. Patient had a STEMI with drug-eluting stent to LAD. Patient states that she got stents placed. Patient states that on November 19, 3 days ago, patient experienced a bit of chest pain, was returned to [facility], the cardiac workup was negative, determine it was GI/gastritis pain. Patient was discharged home. Patient states that at this time, she has some mild symptoms but is not sure how to explain what she is feeling. Patient states that earlier today she had the sensation that something was poking her in the heart. Self-resolved. Patient's daughter became concerned and brought the patient to the emergency room. Patient states that her new medications are Brilinta, aspirin and metoprolol. Related Data Home Medications ?Medication ?Instructions ?Recorded ?Confirmed blood glucose control high and low #1 ea 09/07/20 11/20/24 solution (FreeStyle Control solution) lancets 33 gauge (TRUEplus Lancets) #100 ea 11/29/23 11/20/24 aspirin 81 mg tablet,delayed 81 mg PO DAILY 11/20/24 11/20/24 release (Adult Low Dose Aspirin) atorvastatin 80 mg tablet 80 mg PO BEDTIME 11/20/24 11/20/24 metoprolol succinate 50 mg 50 mg PO DAILY 11/20/24 11/20/24 tablet,extended release 24 hr ticagrelor 90 mg tablet (Brilinta) 90 mg PO BID 11/20/24 11/20/24 Previous Rx's ?Medication ?Instructions ?Recorded pen needle, diabetic 32 gauge x #100 ea 11/02/20 (BD Corin 2nd Gen Pen Needle) blood sugar diagnostic (FreeStyle #100 ea 04/18/22 Lite Strips) dapagliflozin propanediol 10 mg 10 mg PO DAILY #30 tabs 04/18/22 tablet (Farxiga) pen needle, diabetic 32 gauge x #100 ea 04/18/22 (BD Ultra-Fine Corin Pen Needle) glucose 4 gram chewable tablet 4 g PO Q15M PRN hypoglycemia #20 11/29/23 (Dex4 Glucose) tabs lancets 28 gauge (FreeStyle #100 ea 11/29/23 Lancets) ferrous sulfate 325 mg (65 mg 325 mg PO BID #60 tabs 05/20/24 iron) tablet meloxicam 7.5 mg tablet 7.5 mg PO DAILY #10 tabs 05/21/24 pen needle, diabetic 32 gauge x #100 ea 06/17/24 (BD Ultra-Fine Corin Pen Needle) nystatin 100,000 unit/gram topical 1 appl topical BID #15 grams 08/20/24 powder cholecalciferol (vitamin D3) 50 50 mcg PO DAILY #90 caps 08/26/24 mcg (2,000 unit) capsule miconazole nitrate 2 % topical 1 appl topical BID #85 grams 09/18/24 powder fluoxetine 10 mg capsule 10 mg PO DAILY #90 caps 10/03/24 insulin glargine 100 unit/mL (3 8 unit (0.08 mL) subcut QPM #15 mL 10/21/24 mL) subcutaneous pen (Lantus Solostar U-100 Insulin) metformin 1,000 mg tablet 1,000 mg PO BID #180 tabs 10/21/24 linagliptin 5 mg tablet (Tradjenta) 5 mg PO DAILY 30 days #30 tabs 11/17/24 levothyroxine 150 mcg tablet 150 mcg PO DAILY 30 days #30 tabs 11/20/24 (Synthroid) Allergies Allergy/AdvReac Type Severity Reaction Status Date / Time penicillin V Allergy Unknown hives Verified 11/23/24 05:33 Penicillins [PENICILLINS] Allergy Unknown RASH,DIZZIN Verified 11/23/24 05:33 ESS Review of Systems Review of Systems: Constitutional : No Weight loss, No Fever, No Chills, No Night Sweats, No Fatigue, No Malaise ENT/Mouth : No Hearing loss, No Ear Pain, No Nasal Congestion, No Sinus Pain, No Hoarseness, No sore throat, No Rhinorrhea, No Swallowing Difficulty Eyes: No Eye Pain, No Swelling, No Redness, No Foreign Body, No Discharge, No Vision Changes Cardiovascular : Complaining of chest pain earlier today, now resolved, no palpitations or shortness of breath. Respiratory : No Cough, No Sputum, No Wheezing, No Smoke Exposure, No Dyspnea Gastrointestinal : No Nausea, No Vomiting, No Diarrhea, No Constipation, No abdominal Pain, No Hematochezia, No Melena Genitourinary : no irregular bleeding, No Dysuria, No Urinary Frequency, No Hematuria, No Urinary Incontinence, No Urgency, No Flank Pain, No Urinary Flow Changes, No Hesitancy Musculoskeletal : No joint pain, No Myalgias, No Joint Swelling Skin : No Skin Lesions, No rash Neuro : No Weakness, No Numbness, No Paresthesias, No Loss of Consciousness, No Dizziness, No Headache Psych : No Anxiety/Panic, No Depression, No SI/HI/AH/VH, No Social Issues, Heme/Lymph: No Bruising, No Bleeding,No Lymphadenopathy Endocrine : No Polyuria, No Polydipsia, No Temperature Intolerance PMFSH Past Medical History Medical History (Updated 11/23/24 @ 07:16 by Ynes Winchester MD) STEMI (ST elevation myocardial infarction) GERD (gastroesophageal reflux disease) Physical exam, pre-employment Sebaceous cyst RUQ pain Cervical polyp Muscle strain of right scapular region H. pylori infection Overweight (BMI 25.0-29.9) Hypertension Hypothyroidism longterm (current) use of insulin Diabetes type 2, uncontrolled Surgical History (Updated 11/20/24 @ 14:05 by MIGDALIA Lazaro) History of coronary artery stent placement Hx of tubal ligation Hx of cholecystectomy Family History Family History Unknown No problems noted. Father Diabetes Heart disease Mother Diabetes Hypertension Heart disease Brother Lung cancer Sister Heart disease Social History Social History Household Members: Spouse and Children Housing: House Are you a primary animal care giver to a significant other at home: No Do you presently have visiting nurse or other home services: No Alcohol intake: never Patient Tobacco Use Status: Never used Tobacco Smoked in Last 30 Days: No e-Cigarette/Vaping Use: Never Used Second Hand Smoke Exposure: No Use of substances other than those prescribed or required for medical reasons: No Advance Directives: No Advance Directives Information Provided: Yes Do you have a plan to hurt others: No Plan Patient : No service: No Current occupational status: employed and disabled 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 All of patient's labs are pending Records from [facility] pending. Medical Decision Making Medical Decision Making [facility] Narrative: I requested records from [facility]. Patient's EKG from 11/19/2024 from [facility] shows inverted T-waves in V1 through V3. Today's EKG, my interpretation: Normal sinus rhythm, heart rate 70, similar ST segment changes and T-wave inversions in V1 through V3 as seen on previous EKGs, QTC 466 -on 11/19/2024, when patient went to [facility] , patient's troponin was still elevated, high sensitivity troponin was 182 and 172, taken2 hours apart (normal < 14) Chest x-ray does not show any acute abnormalities My interpretation of labs: Patient's white blood cell count slightly elevated 11.0, likely reactive leukocytosis, no obvious source of infection. No chemistry abnormality, troponin 48.3. Patient recovering from a STEMI. BNP negative -at this time, 06:55, patient states that she is still pain-free -we will repeat a 2nd troponin at 07:30 and a 2nd EKG. Concerning that patient is having intermittent chest pain after a STEMI. However, patient is a very anxious lady. At this time, acute coronary pathology not suspected. As mentioned above, patient remains pain-free, vitals stable -sign-out given to my colleague Dr. Leal Differential Diagnosis Differential Diagnoses: The differential diagnosis associated with the presentation includes (Anxiety, musculoskeletal pain, costochondritis, STEMI, NSTEMI) Admission/Observation Consideration of admission/observation: Escalation of care including admission/observation considered (Patient is still recovering from a STEMI which occurred 2 weeks ago) Lab Data MDM Lab Attestation statement: I reviewed the patient's lab results. 11/23/24 05:39 11/23/24 05:39 Labs: Lab Results 11/23/24 11/23/24 Range/Units 05:39 05:40 WBC 11.0 H (4.8-10.8) X10*3/uL RBC 4.81 (4.20-5.50) X10*6/uL Hgb 12.9 (12.0-16.0) g/dl Hct 37.7 (37.0-47.0) % MCV 78.4 L (80.0-98.0) fL MCH 26.8 L (27.0-33.0) pg MCHC 34.2 (31.0-35.0) g/dl RDW 14.3 (11.0-16.0) % Plt Count 512 H (160-400) X10*3/uL MPV 8.8 L (9.4-12.3) fL Immature Gran % (Auto) 0.3 (0.0-0.4) % Neut % (Auto) 74.8 H (45-73) % Lymph % (Auto) 17.6 L (20-40) % Brooke % (Auto) 5.2 (2-11) % Eos % (Auto) 1.6 (0-4) % Baso % (Auto) 0.5 (0-2) % Lymph # (Auto) 1.9 (1.2-4.9) X10*3/uL Brooke # (Auto) 0.6 (0.1-1.2) X10*3/uL Eos # (Auto) 0.2 (0.0-0.4) X10*3/uL Baso # (Auto) 0.1 (0.0-0.2) X10*3/uL Abs Immat Gran (auto) 0.03 (0.00-0.03) X10*3/uL Absolute Neuts (auto) 8.2 (2.0-8.3) x10*3/uL Absolute Nucleated RBC 0.000 (0.0-0.012) X10*3/uL Nucleated RBC % (auto) 0.0 (0.0-0.2) /100WBC PT 10.7 L (10.9-12.4) SEC INR 0.9 (0.9-1.1) Sodium 142 (135-145) mmol/L Potassium 4.0 (3.3-5.1) mmol/L Chloride 106 (96-108) mmol/L Carbon Dioxide 24 (22-29) mmol/L Anion Gap 16 (12-20) BUN 15 (9-16) mg/dL Creatinine 0.71 (0.5-1.4) mg/dL Estim Creat Clear Calc 71.8 Estimated GFR > 60 Random Glucose 140 H (60-115) mg/dL Calcium 9.9 (8.4-10.2) mg/dL Total Bilirubin 0.6 (0.0-1.0) mg/dL AST 174 H (5-31) U/L ALT 245 H (0-31) U/L Alkaline Phosphatase 82 (39-117) U/L Troponin I High Sens 48.3 H (<3.5-17.0) ng/L B-Natriuretic Peptide 92 (<100) pg/mL Total Protein 7.4 (6.5-8.0) g/dL Albumin 4.2 (3.5-5.0) g/dL Independent Interpretation I performed an independent interpretation of an: EKG and Plain X-Ray Radiology Impression Discussion of test interpretation with radiology: I have reviewed the radiologist's reading. Radiologist Impression: Portions of the exam are obscured by overlying material. No consolidation or effusion. Heart size is normal. No acute fracture. IMPRESSION: 1. No acute findings. Independent Historian Clinical information obtained from an independent historian. History obtained from or confirmed by: Other (Patient's daughter) Discharge Plan Discharge Clinical Impression: Chest pain Patient Disposition: Still a Patient Prescriptions: No Action (DME) pen needle, diabetic [BD Corin 2nd Gen Pen Needle] 32 gauge x 5/32 needle See Rx Instructions .MEDSUPPLY Qty: 100 4RF Rx Instructions: once a day ferrous sulfate 325 mg (65 mg iron) Tablet 325 mg PO BID Qty: 60 6RF (DME) pen needle, diabetic [BD Ultra-Fine Corin Pen Needle] 32 gauge x 5/32 needle See Rx Instructions .Route Qty: 100 1RF Rx Instructions: As directed cholecalciferol (vitamin D3) 50 mcg (2,000 unit) capsule 50 mcg PO DAILY Qty: 90 3RF fluoxetine 10 mg capsule 10 mg PO DAILY Qty: 90 1RF insulin glargine [Lantus Solostar U-100 Insulin] 100 unit/mL (3 mL) insulin pen 8 unit subcut QPM Qty: 15 0RF Rx Instructions: [facility] metformin 1,000 mg tablet 1,000 mg PO BID Qty: 180 1RF Tradjenta 5 mg tablet 5 mg PO DAILY 30 Days Qty: 30 3RF levothyroxine [Synthroid] 150 mcg tablet 150 mcg PO DAILY 30 Days Qty: 30 4RF glucose [Dex4 Glucose] 4 gram tablet,chewable 4 g PO Q15M PRN (Reason: hypoglycemia) Qty: 20 0RF Rx Instructions: until symptoms of low blood sugar are controlled (DME) lancets [TRUEplus Lancets] 33 gauge misc See Rx Instructions .ROUTE TID Qty: 100 Rx Instructions: As directed check BS TID (DME) lancets [FreeStyle Lancets] 28 gauge misc See Rx Instructions .ROUTE .MEDSUPPLY Qty: 100 11RF Rx Instructions: As directed three times a day meloxicam 7.5 mg tablet 7.5 mg PO DAILY Qty: 10 0RF (DME) FreeStyle Control Solution See Rx Instructions .ROUTE .MEDSUPPLY Qty: 1 Rx Instructions: As directed Farxiga 10 mg tablet 10 mg PO DAILY Qty: 30 6RF (DME) FreeStyle Lite Strips Strip See Rx Instructions .ROUTE .MEDSUPPLY Qty: 100 5RF Rx Instructions: 3 times a day (DME) pen needle, diabetic [BD Ultra-Fine Corin Pen Needle] 32 gauge x 5/32 needle See Rx Instructions .ROUTE .MEDSUPPLY Qty: 100 3RF Rx Instructions: As directed once daily miconazole nitrate 2 % powder 1 appl topical BID Qty: 85 3RF nystatin 100,000 unit/gram powder 1 appl topical BID Qty: 15 0RF atorvastatin 80 mg tablet 80 mg PO BEDTIME metoprolol succinate 50 mg tablet extended release 24 hr 50 mg PO DAILY aspirin [Adult Low Dose Aspirin] 81 mg tablet,delayed release (DR/EC) 81 mg PO DAILY Brilinta 90 mg tablet 90 mg PO BID Rx Instructions: 11/09/2024 Print Language: Hebrew
[2024-11-23 05:52] LABS: INTERNATIONAL NORM RATIO 0.9 (0.9-1.1); Prothrombin Time 10.7 SEC (10.9-12.4)
[2024-11-23 06:02] LABS: Alanine Aminotransferase 245 U/L (0-31); Albumin Level 4.2 g/dL (3.5-5.0); Alkaline Phosphatase 82 U/L (39-117); Anion Gap 16 (12-20); Aspartate Amino Transferase 174 U/L (5-31); Bilirubin Total 0.6 mg/dL (0.0-1.0); Blood Urea Nitrogen 15 mg/dL (9-16); Calcium 9.9 mg/dL (8.4-10.2); Carbon Dioxide 24 mmol/L (22-29); Chloride 106 mmol/L (96-108); Creatinine Clr Calc Pharmacy 71.8; Estimated Glomerular Filt Rate > 60; Glucose Random 140 mg/dL (60-115); Sodium 142 mmol/L (135-145); Total Protein 7.4 g/dL (6.5-8.0)
[2024-11-23 06:07] LABS: Troponin-I High Sensitivity 48.3 ng/L (<3.5-17.0)
[2024-11-23 06:24] LABS: B Type Natriuretic Peptide 92 pg/mL (<100)
--- NOTE | 2024-11-23 07:30 | ECG_ITS ---
Test Reason : CHEST PAIN Blood Pressure : / mmHG Vent. Rate : 069 BPM Atrial Rate : 069 BPM P-R Int : 134 ms QRS Dur : 082 ms QT Int : 456 ms P-R-T Axes : 046 043 132 degrees QTc Int : 488 ms Normal sinus rhythm with sinus arrhythmia T wave abnormality, consider anterolateral ischemia Prolonged QT Abnormal ECG When compared with ECG of 23-NOV-2024 05:36, No significant change was found Referred By: Ynes Winchester Electronically Signed By:
[2024-11-23 09:28] LABS: Troponin-I High Sensitivity 43.8 ng/L (<3.5-17.0)
--- NOTE | 2024-11-23 11:19 | PM.CNCAR ---
History of Present Illness History of Present Illness Date of Service: 11/23/24 Requesting physician: Fatuma Leal Chief complaint: Unstable angina Narrative: [age] year female presenting with chest pain. She recently had anterior wall NM on November 09 and underwent primary PCI by Dr. Jason at [facility]. She had ostial LAD stenting done at that time. She was discharged home and apparently had chest discomfort on November 19 and was at [facility]. Her ECG had precordial T-wave inversions in lead V1 and V2 at that time. It appears she was discharged home. She had recurrent pain and came to [facility]. She is describing left-sided pressure-like feeling. This is somewhat different from her acute NM symptoms which also radiated to the back but she is not complaining of any radiation to the back. Her ECG is significantly abnormal with deep T-wave inversions in the precordial leads which are all new compared to November 19. Biomarkers are not impressive. She has been taking aspirin and Brilinta. [facility] Past Medical History Medical History (Updated 11/23/24 @ 11:30 by Shin Denton MD) STEMI (ST elevation myocardial infarction) GERD (gastroesophageal reflux disease) Physical exam, pre-employment Sebaceous cyst RUQ pain Cervical polyp Muscle strain of right scapular region H. pylori infection Overweight (BMI 25.0-29.9) Hypertension Hypothyroidism half-way (current) use of insulin Diabetes type 2, uncontrolled Family History Family History Unknown No problems noted. Father Diabetes Heart disease Mother Diabetes Hypertension Heart disease Brother Lung cancer Sister Heart disease Surgical History Surgical History (Updated 11/20/24 @ 14:05 by MIGDALIA Lazaro) History of coronary artery stent placement Hx of tubal ligation Hx of cholecystectomy Social History Social History Household Members: Spouse and Children Housing: House Are you a primary animal care service worker to a significant other at home: No Do you presently have visiting nurse or other home services: No Alcohol intake: never Patient Tobacco Use Status: Never used Tobacco Smoked in Last 30 Days: No e-Cigarette/Vaping Use: Never Used Second Hand Smoke Exposure: No Use of substances other than those prescribed or required for medical reasons: No Advance Directives: No Advance Directives Information Provided: Yes Do you have a plan to hurt others: No Plan Patient : No service: No Current occupational status: employed and disabled 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 Cognitive needs: No Hearing needs: No Vision needs: No Meds Allergies Allergy/AdvReac Type Severity Reaction Status Date / Time penicillin V Allergy Unknown hives Verified 11/23/24 05:33 Penicillins [PENICILLINS] Allergy Unknown RASH,DIZZIN Verified 11/23/24 05:33 ESS Active Medications: Current Medications Heparin Sodium (Porcine) (Heparin Sodium,Porcine 5,000 Unit/Ml Vial) 2,400 unit 40 unit/kg (2400 unit) IVPUSH PROTOCOL BOLUS PRN; Protocol PRN Reason: 40 unit/kg - Heparin Protocol Heparin Sodium (Porcine) (Heparin Sodium,Porcine 5,000 Unit/Ml Vial) 4,800 unit 80 unit/kg (4800 unit) IVPUSH PROTOCOL BOLUS PRN; Protocol PRN Reason: 80 unit/kg - Heparin Protocol Heparin Sodium/Sodium Chloride (Heparin Sodium,Porcine/1/2ns) 25,000 unit in 250 mls @ 0 mls/hr IVCONT .Q0M ARIS; Protocol Home Medications ?Medication ?Instructions ?Recorded ?Confirmed ?Last Taken ?Type blood glucose control high and low #1 ea 09/07/20 11/20/24 Unknown History solution (FreeStyle Control solution) lancets 33 gauge (TRUEplus Lancets) #100 ea 11/29/23 11/20/24 Unknown History aspirin 81 mg tablet,delayed 81 mg PO DAILY 11/20/24 11/20/24 Unknown History release (Adult Low Dose Aspirin) atorvastatin 80 mg tablet 80 mg PO BEDTIME 11/20/24 11/20/24 Unknown History metoprolol succinate 50 mg 50 mg PO DAILY 11/20/24 11/20/24 Unknown History tablet,extended release 24 hr ticagrelor 90 mg tablet (Brilinta) 90 mg PO BID 11/20/24 11/20/24 Unknown History Physical Exam Vital Signs: Vital Signs: Last Vital Signs Temp 98.1 F 11/23/24 10:29 Pulse 75 11/23/24 10:29 Resp 17 11/23/24 10:29 BP 146/61 H 11/23/24 10:29 Pulse Ox 96 12/29/24 10:29 O2 Del Method Room Air 11/23/24 10:29 BMI result Body Mass Index 22.5 GENERAL APPEARANCE: in no acute distress, pleasant. NECK: no carotid bruit, no jugular venous distention. SKIN: no suspicious lesions, warm and dry. HEART: no murmurs, regular rate and rhythm. LUNGS: clear to auscultation bilaterally. ABDOMEN: soft, nontender. EXTREMITIES: no edema. Right radial site bruising. PERIPHERAL PULSES: equal. NEUROLOGIC: No gross deficits, AAO X 3 Objective Labs and Meds 11/23/24 11:14 11/23/24 05:39 Lab results: Laboratory Results - last 24 hr 11/23/24 11/23/24 11/23/24 05:39 05:40 08:56 WBC 11.0 H RBC 4.81 Hgb 12.9 Hct 37.7 MCV 78.4 L MCH 26.8 L MCHC 34.2 RDW 14.3 Plt Count 512 H MPV 8.8 L Immature Gran % (Auto) 0.3 Neut % (Auto) 74.8 H Lymph % (Auto) 17.6 L Atkinson % (Auto) 5.2 Eos % (Auto) 1.6 Baso % (Auto) 0.5 Lymph # (Auto) 1.9 Atkinson # (Auto) 0.6 Eos # (Auto) 0.2 Baso # (Auto) 0.1 Abs Immat Gran (auto) 0.03 Absolute Neuts (auto) 8.2 Absolute Nucleated RBC 0.000 Nucleated RBC % (auto) 0.0 PT 10.7 L INR 0.9 Sodium 142 Potassium 4.0 Chloride 106 Carbon Dioxide 24 Anion Gap 16 BUN 15 Creatinine 0.71 Estim Creat Clear Calc 71.8 Estimated GFR > 60 Random Glucose 140 H Calcium 9.9 Total Bilirubin 0.6 AST 174 H ALT 245 H Alkaline Phosphatase 82 Troponin I High Sens 48.3 H 43.8 H B-Natriuretic Peptide 92 Total Protein 7.4 Albumin 4.2 Assessment and Plan (1) Unstable angina: Status: Acute Plan 63-year-old female who is here for chest discomfort. She has significantly abnormal ECG with precordial T-wave inversions. Biomarkers are not very impressive currently. She recently had LAD PCI which was a complex procedure with ostial LAD stenting. She had chest discomfort on November 19 and I reviewed her EKGs in [facility] system and the ECG changes today are significantly worse and new compared to November 19. Start her heparin drip. Continue aspirin and Brilinta. Continue metoprolol and other medications as before. Hold the metformin. Keep NPO in case she has recurrent chest discomfort and may require cardiac catheterization today. Otherwise we will aim for potential diagnostic catheterization tomorrow morning. Thank you for allowing me to participate in the care of your patient. Please feel free to contact me if you have any questions. Procedures Date of Service Date of Service: 11/23/24
[2024-11-23 11:23] LABS: Hemoglobin 13.2 g/dl (12.0-16.0); Mean Corpuscular HGB Conc 33.8 g/dl (31.0-35.0); Mean Corpuscular Hemoglobin 26.6 pg (27.0-33.0); Mean Corpuscular Volume 78.6 fL (80.0-98.0); Mean Platelet Volume 8.8 fL (9.4-12.3); Platelet Count 494 X10*3/uL (160-400); Red Blood Count 4.96 X10*6/uL (4.20-5.50); Red Cell Distribution Width 14.2 % (11.0-16.0); White Blood Count 10.1 X10*3/uL (4.8-10.8)
[2024-11-23 11:27] LABS: Prothrombin Time 11.2 SEC (10.9-12.4)
[2024-11-23 11:29] LABS: PTT Heparin Drip 31.3 SEC (53-77.9)
[2024-11-23] MEDS: Heparin Sodium,Porcine 5,000 UNIT/ML VIAL 2400 UNIT IVPUSH (11:54)
[2024-11-23] MEDS: Heparin Sodium,Porcine/1/2NS 25,000 UNIT/250 ML IV.SOLN 7.13 UNIT IVCONT (11:55)
[2024-11-23 16:07] LABS: Glucose, Whole Blood 109 mg/dL (60-115)
[2024-11-23 18:21] LABS: PTT Heparin Drip 54.8 SEC (53-77.9)
[2024-11-23 19:22] LABS: Glucose, Whole Blood 106 mg/dL (60-115)
--- NOTE | 2024-11-23 20:22 | ECG_ITS ---
Test Reason : TACHY Blood Pressure : / mmHG Vent. Rate : 139 BPM Atrial Rate : 139 BPM P-R Int : 148 ms QRS Dur : 076 ms QT Int : 258 ms P-R-T Axes : 065 044 098 degrees QTc Int : 392 ms Sinus tachycardia Nonspecific T wave abnormality Abnormal ECG When compared with ECG of 23-NOV-2024 07:23, Vent. rate has increased BY 76 BPM Non-specific change in ST segment in Inferior leads T wave inversion no longer evident in Anterolateral leads Referred By: Fatuma Leal Electronically Signed By:CAROLINA HOYT MD
[2024-11-23] MEDS: Metoprolol Tartrate 5 MG/5 ML VIAL 2.5 MG IVPUSH (20:39)
--- NOTE | 2024-11-23 20:58 | PC.NURSE ---
Patient reports heart palpitations, HR 140's, BP 160/94, O2 Sat 98%. EKG completed and reviewed by DR. Fulton. Metoprolol 2.5 mg IV push administered per JAN with improvement-HR in 90'2s, BP 140-150/90's, O2 Sat 97% RA. Patient denies chest pain/heart palpitations at present. Call burgos in patient's reach, patient's dtr at bed side.
[2024-11-23] MEDS: Atorvastatin Calcium 80 MG TABLET PO (23:48)
[2024-11-24] VITALS (9 sets, daily range): BP systolic 120–153; BP diastolic 60–80; PULSE 77–111; RESP 13–18; TEMP 36.6–36.8; O2SAT 97–98
[2024-11-24 00:41] LABS: PTT Heparin Drip 47.5 SEC (53-77.9)
[2024-11-24] MEDS: Levothyroxine Sodium 150 MCG TABLET PO (06:20)
[2024-11-24 06:31] LABS: Hematocrit 40.4 % (37.0-47.0); Hemoglobin 13.4 g/dl (12.0-16.0); Mean Corpuscular HGB Conc 33.2 g/dl (31.0-35.0); Mean Corpuscular Hemoglobin 26.2 pg (27.0-33.0); Mean Corpuscular Volume 78.9 fL (80.0-98.0); Mean Platelet Volume 8.9 fL (9.4-12.3); Platelet Count 512 X10*3/uL (160-400); Red Blood Count 5.12 X10*6/uL (4.20-5.50); Red Cell Distribution Width 14.1 % (11.0-16.0); White Blood Count 11.7 X10*3/uL (4.8-10.8)
[2024-11-24 06:37] LABS: Prothrombin Time 11.9 SEC (10.9-12.4)
[2024-11-24 06:40] LABS: PTT Heparin Drip 69.7 SEC (53-77.9)
[2024-11-24 07:20] LABS: Glucose, Whole Blood 110 mg/dL (60-115)
--- NOTE | 2024-11-24 07:39 | PC.NURSE ---
PTT HD at 69.7 requiring no rate change or bolus at this time. will recollect PTT HD at 12:30
[2024-11-24] MEDS: Aspirin Enteric Coated 81 MG TABLET.DR PO (10:14)
--- NOTE | 2024-11-24 10:23 | PC.NURSE ---
Spoke with pt using [employer] - pt requesting to eat. previously informed pt of NPO status. Jaylan connect sent to Dr. Leong r/t pts diet abilities given it is not guaranteed that she will go for a cath today.
[2024-11-24 12:22] LABS: Glucose, Whole Blood 104 mg/dL (60-115)
--- NOTE | 2024-11-24 12:42 | PHA.MEDREC ---
Pharmacy Consult ? Medication Reconciliation Pharmacy reviewed med rec done by nursing. Went and spoke with patient with application architect and patients daughter was at bedside who was able to translate. Patients daughter states they just saw the patients primary care provider this past week. I asked about Lantus and the patients mother states she has not done an injection in months when I asked about the recent fill date the daughter stated that was probably the day she saw her Primary Care Dr but he never stated she was going back on Insulin . I called [facility] and they confirmed they have Pantoprazole, Levothyroxine, Lantus, Vitamin D3 and Tradjenta ready for potato picker for the patient. The daughter confirmed her mom took her medications last 2 days ago.
[2024-11-24 12:48] LABS: PTT Heparin Drip 86.5 SEC (53-77.9)
== END 2024-11-24 12:53 | disposition short-term general hospital (02) ==
PROVIDERS: Emergency Medicine; Internal Medicine; Emergency Provider Emergency Medicine; PCP Internal Medicine
DX: R07.89 Other chest pain (principal); I25.2 Old myocardial infarction; I10 Essential (primary) hypertension; E11.9 Type 2 diabetes mellitus without complications; R06.02 Shortness of breath; Z79.899 Other long term (current) drug therapy; Z79.4 Long term (current) use of insulin
CPT/HCPCS: 36415; 71045; 80053; 82947; 83880; 84484; 85025; 85027; 85610; 85730; 93005; 96365; 96375; 96376; 99285; J1644

== ENCOUNTER → 2024-11-23 05:53 | Outpatient (BNV) | payer OTHER, SELFPAY | PROVIDERS: Emergency Provider Emergency Medicine; PCP Internal Medicine; Visit Provider Specialist | DX: R07.9 Chest pain, unspecified (principal) | CPT/HCPCS: 71045 ==

== ENCOUNTER → 2024-11-23 06:22 | Outpatient (BNV) | payer OTHER, SELFPAY | PROVIDERS: Emergency Provider Emergency Medicine; PCP Internal Medicine; Visit Provider Internal Medicine Cardiovascular Disease | DX: R94.31 Abnormal electrocardiogram [ECG] [EKG] (principal) | CPT/HCPCS: 93010; 99284 ==

== ENCOUNTER 2024-12-02 09:37 | Outpatient (REF) | payer OTHER, SELFPAY ==
[2024-12-02 11:14] LABS: MANUAL DIFF FLAG NO
[2024-12-02 11:57] LABS: Basophils Percent Auto 0.4 % (0-2); Eosinophils Absolute Auto 0.1 X10*3/uL (0.0-0.4); Eosinophils Percent Auto 0.7 % (0-4); Hematocrit 38.2 % (37.0-47.0); Hemoglobin 12.5 g/dl (12.0-16.0); Imm Gran Abs Auto 0.04 X10*3/uL (0.00-0.03); Imm Gran Pct Auto 0.4 % (0.0-0.4); Lymphocytes Absolute Auto 1.1 X10*3/uL (1.2-4.9); Lymphocytes Percent Auto 9.6 % (20-40); Mean Corpuscular HGB Conc 32.7 g/dl (31.0-35.0); Mean Corpuscular Volume 79.4 fL (80.0-98.0); Mean Platelet Volume 9.2 fL (9.4-12.3); Monocytes Absolute Auto 0.6 X10*3/uL (0.1-1.2); Monocytes Percent Auto 5.2 % (2-11); Neutrophils Absolute Auto 9.4 x10*3/uL (2.0-8.3); Neutrophils Percent Auto 83.7 % (45-73); Platelet Count 462 X10*3/uL (160-400); Red Blood Count 4.81 X10*6/uL (4.20-5.50); Red Cell Distribution Width 14.6 % (11.0-16.0); White Blood Count 11.2 X10*3/uL (4.8-10.8)
[2024-12-02 12:09] LABS: Appearance Urine Clear; Color Urine Yellow; Glucose Urine UA >=1000 mg/dL (Negative); Leukocyte Esterase Urine Negative (Negative); Nitrite Urine Negative (Negative); PH 5.5 (5.0-9.0); Specific Gravity - Urine >= 1.030 (1.005-1.025); UMIC TRIGGER UACC YES; Urine Blood Trace (Negative); Urine Ketones Negative (Negative); Urine Protein Negative (Neg-Trace)
[2024-12-02 12:17] LABS: Bacteria Urine None Seen (None Seen); Hyaline Casts Urine 0-2 /LPF (0-2); RBC Urine 0-2 /HPF (0-2); Squamous Epithelial Cell Urine 0-2 /HPF (0-2); WBC Urine 0-5 /HPF (0-5)
[2024-12-02 12:38] LABS: Estimated Average Glucose 171 mg/dL; Hemoglobin A1C 178.4971 umol/L; Hemoglobin A1c % 7.6 % (<6.0); Total Hemoglobin (HGBA1C) 3013.5985 umol/L
[2024-12-02 12:48] LABS: Alanine Aminotransferase 372 U/L (0-31); Albumin Level 4.3 g/dL (3.5-5.0); Alkaline Phosphatase 65 U/L (39-117); Anion Gap 10 (12-20); Aspartate Amino Transferase 234 U/L (5-31); Bilirubin Direct 0.3 mg/dL (0.0-0.5); Bilirubin Total 0.5 mg/dL (0.0-1.0); Blood Urea Nitrogen 13 mg/dL (9-16); Calcium 10.1 mg/dL (8.4-10.2); Carbon Dioxide 28 mmol/L (22-29); Chloride 106 mmol/L (96-108); Estimated Glomerular Filt Rate > 60; Glucose Random 192 mg/dL (60-115); Magnesium 1.6 mg/dL (1.6-2.6); Potassium 4.3 mmol/L (3.3-5.1); Sodium 140 mmol/L (135-145); Total Protein 7.5 g/dL (6.5-8.0)
[2024-12-02 12:49] LABS: Creatinine Urine 25.59 mg/dL; Microalbum/Creatinine Ratio Ur 19.5 ug/mg cr (<30)
[2024-12-02 13:06] LABS: Folate 15.2 ng/mL (> or = 4.0); Vitamin B12 394 pg/mL (200-900)
[2024-12-02 13:08] LABS: Free T4 (Free Thyroxine) 1.36 ng/dL (0.71-1.85); Thyroid Stimulating Hormone 3.93 uIU/mL (0.32-4.0); Vitamin D 25-OH Total 44.1 ng/mL (>30)
[2024-12-02 13:09] LABS: HBS Num1 213.97 mIU/mL (0-7.99); HBc Num1 6.84 S/CO (0.00-0.79); ~Hepatitis B Surface Antibody REACTIVE (Nonreactive)
[2024-12-02 13:10] LABS: HBsAGNum1 0.33 S/CO (0.00-0.99); Hepatitis B Surface Antigen Negative (Negative); ~HepC Num1 0.09 S/CO (0.00-0.79); ~Hepatitis C Antibody Nonreactive (Nonreactive)
[2024-12-03 09:51] LABS: HBc Num2 9.38 S/CO; HBc Num3 9.37 S/CO; Hepatitis B Core Antibody Reactive (Nonreactive)
== END 2024-12-02 09:38 | disposition home or self-care (01) ==
LOC: HO.LAB 09:37
PROVIDERS: PCP Internal Medicine; Visit Provider Internal Medicine
DX: I25.10 Atherosclerotic heart disease of native coronary artery without angina pectoris (principal); E11.65 Type 2 diabetes mellitus with hyperglycemia; I10 Essential (primary) hypertension; E03.9 Hypothyroidism, unspecified; E78.00 Pure hypercholesterolemia, unspecified; R79.89 Other specified abnormal findings of blood chemistry; G47.00 Insomnia, unspecified; Z79.4 Long term (current) use of insulin
CPT/HCPCS: 36415; 80053; 81001; 81003; 82043; 82248; 82306; 82550; 82570; 82607; 82746; 83036; 83735; 84439; 84443; 85025; 86704; 86706; 86803; 87340; 96127; 99212

== ENCOUNTER 2024-12-02 09:37 | Outpatient (AMB) | payer OTHER, SELFPAY ==
--- NOTE | 2024-12-02 09:54 | A.OFFPC_ITS ---
Vital Signs 12/02/24 09:55 Height 5 ft 4 in Weight 134 lb BMI 23.0 BP 132/76 Blood Pressure Location Lt brachial Position Sitting Pulse 82 Pulse Source Pulse Oximeter Pulse Oximetry (%) 98 Oxygen Delivery Method Room Air Intake Visit Reasons: F/U [facility] Discharge 11/19/24 Allergies penicillin V Allergy (Unknown, Verified 12/02/24 09:56) hives Penicillins [PENICILLINS] Allergy (Unknown, Verified 12/02/24 09:56) RASH,DIZZINESS Tobacco use date assessed: 12/02/24 Dental Screening Dental Screen Date: 12/02/24 Did you have a dental visit in the last 12 months?: Yes Did you have a dental problem in the last 6 months where you did not have access to dental care?: No Was dental information given to patient?: Patient has dentist HPI F[facility]U [facility] Discharge 11/19/24 HPI Details The patient is a 64-year-old female presenting with the management of her chronic conditions, including coronary artery disease with stents placed in the past. She has been on Brilinta and aspirin for clot prevention and is instructed to continue these for one year. The patient also reports difficulties in controlling her blood glucose levels, with a recent hemoglobin A1c of 8.2. Despite previous dietary recommendations, maintaining normal sugar levels remains a challenge, necessitating further emphasis on dietary changes such as reducing sugars and cholesterol intake. The patient previously visited an wood and hardware outfitter when her A1c exceeded 8.2, but further appointments were not pursued. She exhibits weakness in her arms and legs and reports intermittent chest discomfort different from prior episodes. Her liver function has been abnormal, prompting prior ultrasounds and future lab work repeats. Current medications include metformin, Trajenta, Losartan, metoprolol, and a statin, albeit with concerns about drug interactions and liver impact. A recent evaluation from [facility] suggests elevated liver numbers, necessitating repeated testing. TCM TCM Information Date of Discharge 11/25/24 Discharged From Other ([facility]) Interactive Contact Date (Reference documentation from this date) 12/02/24 [facility] Medical History (Updated 12/02/24 @ 10:30 by Conor Garcia MD) STEMI (ST elevation myocardial infarction) GERD (gastroesophageal reflux disease) Physical exam, pre-employment Sebaceous cyst RUQ pain Cervical polyp Muscle strain of right scapular region H. 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 1. Little interest or pleasure in doing things: not at all 2. Feeling down, depressed, or hopeless: not at all 3. Trouble falling or staying asleep, or sleeping too much: not at all 4. Feeling tired or having little energy: not at all 5. Poor appetite or overeating: not at all 6. Feeling bad about yourself - or that you are a failure or have let yourself or your family down: not at all 7. Trouble concentrating on things, such as reading the newspaper or watching television: not at all 8. Moving or speaking so slowly that other people could have noticed. Or the opposite - being so fidgety or restless that you have been moving around a lot more than usual: not at all 9. Thoughts that you would be better off or of hurting yourself in some way: not at all Total score: 0 Depression Screening Interpretation: Negative Depression Screening Done: Yes 78704 - PHQ-9 Billing: Yes Source: Developed by Drs. Deepak Woodard, Netta Chairez, Juan R Tovar and colleagues, with an educational kimi from [employer]. Thrive Questionnaire Date Thrive assessed: 12/02/24 I am a: Patient What is your living situation today?: I have a steady place to live Within the past 12 months, did the food you bought not last and you didn't have the money to get more?: Never true Within the past 12 months, did you worry whether your food would run out before you got money to buy more?: Never true Do you have trouble paying for medicines?: No Do you have trouble getting transportation to medical appointments?: No Do you have trouble paying your heating and electricity bill?: No Do you have trouble taking care of your child, family member or friend?: No Do you have trouble with day-to-day activities such as bathing, preparing meals, shopping, managing finances, etc.?: No Are you currently unemployed and looking for a job?: No Are you interested in more education?: No Currently or been in a relationship where the following occur: No concerns reported THRIVE Score: 0 AUDIT C Alcohol Use Questionnaire (AUDIT-C) 1. How often do you have a drink containing alcohol?: Never 3. How often do you have six or more drinks on one occasion?: Never Total Score: 0 SHAWN-7 AMB Questionnaire SHAWN-7 Date SHAWN - 7 assessed: 12/02/24 Feeling nervous, anxious, or on edge: 0 = Not at all Not being able to stop or control worryin = Not at all Worrying too much about different things: 0 = Not at all Trouble relaxin = Not at all Being so restless that it is hard to sit still: 0 = Not at all Becoming easily annoyed or irritable: 0 = Not at all Feeling afraid as if something awful might happen: 0 = Not at all Total SHAWN-7 score (0-4 normal; 5-9 mild; 10-14 moderate; 15-21 severe): 0 Source: Developed by Drs. Deepak Woodard, Netta Chairez, Juan R Tovar and colleagues, with an educational kimi from [employer]. Physical exam (Primary Care) Vital Signs: Last Vital Signs Pulse 82 12/02/24 09:55 BP 132/76 12/02/24 09:55 Pulse Ox 98 12/02/24 09:55 Oxygen Delivery Method Room Air 12/02/24 09:55 BMI result Body Mass Index 23.0 Tobacco/Smoking Status: Tobacco use Status Tobacco use date assessed 12/02/24 12/02/24 10:03 Patient Tobacco Use Status Never used Tobacco 12/02/24 09:54 Tobacco use type Cigarette 12/02/24 10:03 e-Cigarette/Vaping Use Never Used 12/02/24 09:54 PHQ-9: PHQ-9 Score PHQ-9: Total score 0 12/02/24 10:20 Depression Screening Interpretation: Negative Thrive Assessment: Date of Thrive Assessment Date Thrive assessed 12/02/24 12/02/24 10:03 Currently or been in a relationship where the following occur: No concerns reported Const General: alert; No acute distress Eyes Conjunctivae: conjunctivae normal Resp Auscultation: clear to auscultation bilaterally Cardio Rate: regular rate Rhythm: regular rhythm GI Inspection: Yes normal to inspection Extrem General: Yes normal to inspection and No edema Coding Level of Care Code Est Pt Level 4 (17273) Complex EM visit Add On G2211 Diagnoses CAD (coronary artery disease) I25.10 Type 2 diabetes mellitus with hyperglycemia, with long-term current use of insulin E11.65; Z79.4 Diabetes mellitus prison insulin use: with prison use Essential hypertension I10 Hypertension type: essential hypertension Acquired hypothyroidism E03.9 Hypothyroidism type: acquired Hypercholesterolemia E78.00 LFT elevation R79.89 Insomnia G47.00 Additional Codes PHQ-9 - 44174 - PHQ-9 Billing: Yes ([id number]) Assessment & Plan Assessment & Plan (1) CAD (coronary artery disease): Code(s): I25.10 - Atherosclerotic heart disease of [place] coronary artery without angina pectoris Category: Medical (2) Type 2 diabetes mellitus with hyperglycemia: Comment: 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 (3) Hypertension: Code(s): I10 - Essential (primary) hypertension Category: Medical Qualifiers: Hypertension type: essential hypertension Qualified Code(s): I10 - Essential (primary) hypertension (4) Hypothyroidism: Code(s): E03.9 - Hypothyroidism, unspecified Category: Medical Qualifiers: Hypothyroidism type: acquired Qualified Code(s): E03.9 - Hypothyroidism, unspecified (5) Hypercholesterolemia: Code(s): E78.00 - Pure hypercholesterolemia, unspecified Category: Medical (6) LFT elevation: Comment: Reviewed labs liver enzymes normal 01/2023-no change in medications-no EtOH, viral serologies neg-reviewed ultrasound Code(s): R79.89 - Other specified abnormal findings of blood chemistry Category: Medical (7) Insomnia: Code(s): G47.00 - Insomnia, unspecified Category: Medical Plan - Advisement for continued use of Brilinta and aspirin for coronary artery disease management. - Dietary recommendations for control of Type 2 Diabetes Mellitus, focusing on reducing sugar and cholesterol intake. - Referral to a freelance designer to reinforce dietary changes and assist in glucose management. - Monitoring of liver enzymes due to past issues, with plans to repeat testing and assess statin therapy's impact. - Replacement medications for hypertension and hyperlipidemia as necessary, considering interactions with current therapy. - Use of melatonin to address sleep disturbances, emphasizing regular intake. - Patient to continue with the planned cardiology follow-up scheduled for the . - Regular blood work to monitor glucose levels, liver function, and cholesterol management. 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 Complete Blood Count Auto Diff 3 Months E11.65 - Type 2 diabetes mellitus with hyperglycemia, Z79.4 - nursing home (current) use of insulin Hemoglobin A1c 3 Months E11.65 - Type 2 diabetes mellitus with hyperglycemia, Z79.4 - nursing home (current) use of insulin Microalbumin, Random (w Creat) 3 Months E11.65 - Type 2 diabetes mellitus with hyperglycemia, Z79.4 - nursing home (current) use of insulin Creatinine Urine 3 Months E11.65 - Type 2 diabetes mellitus with hyperglycemia, Z79.4 - nursing home (current) use of insulin B Type Natriuretic Peptide 3 Months E11.65 - Type 2 diabetes mellitus with hyperglycemia, Z79.4 - 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 Thyroid Stimulating Hormone 3 Months E11.65 - Type 2 diabetes mellitus with hyperglycemia, Z79.4 - nursing home (current) use of insulin Liver Panel Today E78.00 - Pure hypercholesterolemia, unspecified, R79.89 - Other specified abnormal findings of blood chemistry Creatine Kinase Total Today E78.00 - Pure hypercholesterolemia, unspecified Referrals Nutrition/Dietitian Referral E11.65 - Type 2 diabetes mellitus with hyperglycemia, Z79.4 - 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
[2024-12-02 09:55] VITALS: BP 132/76; PULSE 82; O2SAT 98; BMI 23.0
== END 2024-12-02 10:42 | disposition home or self-care (01) ==
PROVIDERS: PCP Internal Medicine; Visit Provider Internal Medicine
DX: I25.10 Atherosclerotic heart disease of native coronary artery without angina pectoris (principal); E11.65 Type 2 diabetes mellitus with hyperglycemia; Z79.4 Long term (current) use of insulin; I10 Essential (primary) hypertension; E03.9 Hypothyroidism, unspecified; E78.00 Pure hypercholesterolemia, unspecified; R79.89 Other specified abnormal findings of blood chemistry; G47.00 Insomnia, unspecified

== ENCOUNTER 2024-12-02 19:16 | Inpatient (IN) | payer OTHER, SELFPAY ==
[2024-12-02 19:17] VITALS: BP 178/62; PULSE 101; RESP 16; TEMP 36.2; O2SAT 100; BMI 25.9
--- NOTE | 2024-12-02 19:29 | ED_ITS ---
HPI - General Adult General Chief complaint: General Medical Stated complaint: ?Abnormal labs Time Seen by Provider: 12/02/24 23:30 Source: patient Mode of arrival: ambulatory Limitations: no limitations History of Present Illness ED Provider: HPI narrative: Patient with significant coronary artery disease status post stent placement on 11/09 on Brilinta and atorvastatin comes here for increased weakness in the legs in elevated CK patient was told stop atorvastatin on 11/09 and she not taking since then, CPK was 5154 on 10/28 [place] [address]783. Patient has been feeling very weak leg cramps Related Data Home Medications ?Medication ?Instructions ?Recorded ?Confirmed blood glucose control high and low #1 ea 09/07/20 11/20/24 solution (FreeStyle Control solution) lancets 33 gauge (TRUEplus Lancets) #100 ea 11/29/23 11/20/24 aspirin 81 mg tablet,delayed 81 mg PO DAILY 11/20/24 12/03/24 release (Adult Low Dose Aspirin) dapagliflozin propanediol 10 mg 10 mg PO DAILY 11/23/24 12/03/24 tablet (Farxiga) linagliptin 5 mg tablet (Tradjenta) 5 mg PO DAILY 11/23/24 12/03/24 ticagrelor 90 mg tablet (Brilinta) 90 mg PO BID 11/23/24 12/03/24 losartan 25 mg tablet 25 mg PO DAILY 12/02/24 12/03/24 metoprolol succinate 50 mg 50 mg PO DAILY 12/02/24 tablet,extended release 24 hr atorvastatin 20 mg tablet 20 mg PO DAILY 12/03/24 12/03/24 Previous Rx's ?Medication ?Instructions ?Recorded pen needle, diabetic 32 gauge x #100 ea 11/02/20 532 (BD Corin 2nd Gen Pen Needle) pen needle, diabetic 32 gauge x #100 ea 04/18/22 (BD Ultra-Fine Corin Pen Needle) lancets 28 gauge (FreeStyle #100 ea 11/29/23 Lancets) ferrous sulfate 325 mg (65 mg 325 mg PO BID #60 tabs 05/20/24 iron) tablet pen needle, diabetic 32 gauge x #100 ea 06/17/24 (BD Ultra-Fine Corin Pen Needle) cholecalciferol (vitamin D3) 50 50 mcg PO DAILY #90 caps 08/26/24 mcg (2,000 unit) capsule fluoxetine 10 mg capsule 10 mg PO DAILY #90 caps 10/03/24 metformin 1,000 mg tablet 1,000 mg PO BID #180 tabs 10/21/24 levothyroxine 150 mcg tablet 150 mcg PO DAILY 30 days #30 tabs 11/20/24 (Synthroid) blood pessure cuff #1 ea 11/28/24 blood sugar diagnostic (FreeStyle #100 ea 11/28/24 Lite Strips) blood-glucose meter (FreeStyle #1 ea 11/28/24 Lite Meter kit) atorvastatin 80 mg tablet 80 mg PO BEDTIME #30 tabs 12/02/24 melatonin 5 mg capsule 5 mg PO .QD #30 caps 12/02/24 metoprolol succinate 50 mg 50 mg PO DAILY #90 tabs 12/02/24 tablet,extended release 24 hr Allergies Allergy/AdvReac Type Severity Reaction Status Date / Time penicillin V Allergy Unknown hives Verified 12/02/24 19:18 Penicillins [PENICILLINS] Allergy Unknown RASH,DIZZIN Verified 12/02/24 19:18 ESS Review of Systems 2 Review of Systems: Yes all other systems are reviewed and are negative [facility] Past Medical History Medical History STEMI (ST elevation myocardial infarction) GERD (gastroesophageal reflux disease) Physical exam, pre-employment Sebaceous cyst RUQ pain Cervical polyp Muscle strain of right scapular region H. pylori infection Overweight (BMI 25.0-29.9) Hypertension Hypothyroidism [facility] (current) use of insulin Diabetes type 2, uncontrolled Surgical History History of coronary artery stent placement Hx of tubal ligation Hx of cholecystectomy Family History Family History Unknown No problems noted. Father Diabetes Heart disease Mother Diabetes Hypertension Heart disease Brother Lung cancer Sister Heart disease Social History Social History Household Members: Spouse and Children Housing: House Are you a primary spiritual care coordinator to a significant other at home: No Do you presently have visiting nurse or other home services: No Alcohol intake: never Patient Tobacco Use Status: Never used Tobacco Tobacco use type: Cigarette Smoked in Last 30 Days: No e-Cigarette/Vaping Use: Never Used Second Hand Smoke Exposure: No Use of substances other than those prescribed or required for medical reasons: No Advance Directives: No Advance Directives Information Provided: No Do you have a plan to hurt others: No Plan Nutrition Risks: No Nutritional Risk Patient : No service: No Current occupational status: employed and disabled 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 Oriented X3. No acute distress. Eyes: PERRLA, No Nystagmus ENT: Pharynx normal. Oral Mucosa moist Neck: Normal inspection. Neck supple. CVS: Normal heart rate and rhythm. Pulses normal. Respiratory: No respiratory distress. Equal air entry bilateral, no wheezing/rales/rhonchi Abdomen: Soft and nontender. Bowel sounds are present, no mass palpable, no CVA tenderness Skin: Skin warm and dry. Normal skin color. Normal skin turgor. Extremities: No lower extremity edema. No calf tenderness Neuro: Oriented X 3. No motor deficit. No sensory deficit.No cerebellar signs , cranial nerves II-XII intact Course Course Course Narrative: RmE: 64 year female brought by daughter for abnormal lab results. Patient is unaware what the results was. Patient states her primary care provider told her to come to the ED for murmur blood work. Patient did not understand because patient does not speak Romanian. Upon review of labs found to be CPK 8000 today at her primary care clinic. Increased from 5000 in October. Repeat labs ordered. Medications Administered Generic Name Dose Route Start Last Admin Trade Name Freq PRN Reason Stop Dose Admin Sodium Bicarbonate 150 meq/ 1,000 mls @ 100 mls/hr 12/02/24 23:45 12/03/24 00:30 Dextrose IV 100 mls/hr .Q10H ARIS Administration Insulin Human Lispro 0 unit 12/03/24 07:30 12/03/24 07:10 Insulin Lispro 100 Unit/Ml 3 Ml Vial SUBCUT Not Given QIDACHS [facility] Protocol Levothyroxine Sodium 150 mcg 12/03/24 06:30 12/03/24 06:11 Levothyroxine Sodium 150 Mcg Tablet PO 150 mcg DAILY@0630 ARIS Administration Sodium Chloride 3 ml 12/03/24 08:00 12/03/24 07:09 0.9 % Sodium Chloride Flush 3 Ml Syringe IVFLUSH Not Given QSHIFT [facility] Discontinued Medications Generic Name Dose Route Start Last Admin Trade Name Alexsandra PRN Reason Stop Dose Admin Sodium Chloride 1,000 mls @ 999 mls/hr 12/03/24 02:52 12/03/24 04:42 Ns IV 12/03/24 03:52 Infused .Q1H1M STA Infusion Medical Decision Making Medical Decision Making [facility] Narrative: Patient with rhabdomyolysis likely from statin induced muscle damage comes with increased weakness will start on bicarb drip p.o. fluids admit for further evaluation Differential Diagnosis Differential Diagnoses: The differential diagnosis associated with the presentation includes Rhabdomyolysis/primary muscular disease Admission/Observation Consideration of admission/observation: Escalation of care including admission/observation considered Consult Healthcare Provider Management of the patient was discussed with: Hospitalist Lab Data [facility] Lab Attestation statement: I reviewed the patient's lab results. 12/03/24 04:30 12/03/24 04:30 Labs: Lab Results 12/02/24 12/03/24 12/03/24 Range/Units 21:10 00:11 00:52 WBC 13.2 H (4.8-10.8) X10*3/uL RBC 4.79 (4.20-5.50) X10*6/uL Hgb 12.7 (12.0-16.0) g/dl Hct 37.7 (37.0-47.0) % MCV 78.7 L (80.0-98.0) fL MCH 26.5 L (27.0-33.0) pg MCHC 33.7 (31.0-35.0) g/dl RDW 14.6 (11.0-16.0) % Plt Count 447 H (160-400) X10*3/uL MPV 9.0 L (9.4-12.3) fL Immature Gran % (Auto) 0.3 (0.0-0.4) % Neut % (Auto) 78.5 H (45-73) % Lymph % (Auto) 14.1 L (20-40) % [place] % (Auto) 5.6 (2-11) % Eos % (Auto) 1.0 (0-4) % Baso % (Auto) 0.5 (0-2) % Lymph # (Auto) 1.9 (1.2-4.9) X10*3/uL [place] # (Auto) 0.7 (0.1-1.2) X10*3/uL Eos # (Auto) 0.1 (0.0-0.4) X10*3/uL Baso # (Auto) 0.1 (0.0-0.2) X10*3/uL Abs Immat Gran (auto) 0.04 H (0.00-0.03) X10*3/uL Absolute Neuts (auto) 10.3 H (2.0-8.3) x10*3/uL Absolute Nucleated RBC 0.000 (0.0-0.012) X10*3/uL Nucleated RBC % (auto) 0.0 (0.0-0.2) /100WBC ESR 7 (0-20) MM/HR Sodium 140 (135-145) mmol/L Potassium 5.3 H D (3.3-5.1) mmol/L Chloride 106 (96-108) mmol/L Carbon Dioxide 25 (22-29) mmol/L Anion Gap 14 (12-20) BUN 15 (9-16) mg/dL Creatinine 0.71 (0.5-1.4) mg/dL Estim Creat Clear Calc 69.4 Estimated GFR > 60 Random Glucose 187 H (60-115) mg/dL Calcium 10.4 H (8.4-10.2) mg/dL Total Bilirubin 0.4 (0.0-1.0) mg/dL AST 263 H (5-31) U/L ALT 406 H (0-31) U/L Alkaline Phosphatase 65 (39-117) U/L Total Creatine Kinase 09201 H (26-140) U/L Troponin I High Sens 25.6 H (<3.5-17.0) ng/L C-Reactive Protein 0.10 (< or = 0.50) mg/dL Total Protein 7.5 (6.5-8.0) g/dL Albumin 4.4 (3.5-5.0) g/dL Urine Color Yellow Urine Appearance Clear Urine pH 5.5 (5.0-9.0) Ur Specific [place] >= 1.030 H (1.005-1.025) Urine Protein Negative (Neg-Trace) mg/dL Urine Glucose (UA) >=1000 H (Negative) mg/dL Urine Ketones Negative (Negative) mg/dL Urine Blood Trace H (Negative) Urine Nitrite Negative (Negative) Ur Leukocyte Esterase Negative (Negative) Urine RBC 0-2 (0-2) /HPF Urine WBC 0-5 (0-5) /HPF Ur Squamous Epith Cells 0-2 (0-2) /HPF Urine Bacteria None Seen (None Seen) Hyaline Casts 0-2 (0-2) /LPF Independent Interpretation I performed an independent interpretation of an: EKG Interpretation: Sinus tachycardia heart rate 139 beats per minute nonspecific STT wave changes no acute ischemia Radiology Impression Discussion of test interpretation with radiology: I have reviewed the radiologist's reading. Radiologist Impression: nad Discharge Plan Discharge Clinical Impression: Rhabdomyolysis Qualifiers: Rhabdomyolysis type: non-traumatic Qualified Code(s): M62.82 - Rhabdomyolysis Patient Disposition: Admitted As Inpatient
[2024-12-02 21:15] LABS: MANUAL DIFF FLAG NO
[2024-12-02 21:16] LABS: Basophils Absolute Auto 0.1 X10*3/uL (0.0-0.2); Basophils Percent Auto 0.5 % (0-2); Eosinophils Absolute Auto 0.1 X10*3/uL (0.0-0.4); Hematocrit 37.7 % (37.0-47.0); Hemoglobin 12.7 g/dl (12.0-16.0); Imm Gran Abs Auto 0.04 X10*3/uL (0.00-0.03); Imm Gran Pct Auto 0.3 % (0.0-0.4); Lymphocytes Absolute Auto 1.9 X10*3/uL (1.2-4.9); Lymphocytes Percent Auto 14.1 % (20-40); Mean Corpuscular HGB Conc 33.7 g/dl (31.0-35.0); Mean Corpuscular Hemoglobin 26.5 pg (27.0-33.0); Mean Corpuscular Volume 78.7 fL (80.0-98.0); Monocytes Absolute Auto 0.7 X10*3/uL (0.1-1.2); Monocytes Percent Auto 5.6 % (2-11); Neutrophils Absolute Auto 10.3 x10*3/uL (2.0-8.3); Neutrophils Percent Auto 78.5 % (45-73); Platelet Count 447 X10*3/uL (160-400); Red Blood Count 4.79 X10*6/uL (4.20-5.50); Red Cell Distribution Width 14.6 % (11.0-16.0); White Blood Count 13.2 X10*3/uL (4.8-10.8)
[2024-12-02 21:31] LABS: Alanine Aminotransferase 406 U/L (0-31); Albumin Level 4.4 g/dL (3.5-5.0); Alkaline Phosphatase 65 U/L (39-117); Anion Gap 14 (12-20); Aspartate Amino Transferase 263 U/L (5-31); Bilirubin Total 0.4 mg/dL (0.0-1.0); Blood Urea Nitrogen 15 mg/dL (9-16); Calcium 10.4 mg/dL (8.4-10.2); Carbon Dioxide 25 mmol/L (22-29); Chloride 106 mmol/L (96-108); Creatinine Clr Calc Pharmacy 69.4; Estimated Glomerular Filt Rate > 60; Glucose Random 187 mg/dL (60-115); Potassium 5.3 mmol/L (3.3-5.1); Sodium 140 mmol/L (135-145); Total Protein 7.5 g/dL (6.5-8.0)
[2024-12-03] VITALS (8 sets, daily range): BP systolic 120–157; BP diastolic 41–69; PULSE 66–85; RESP 16–20; TEMP 36.2–36.8; O2SAT 96–99
[2024-12-03 00:16] LABS: Troponin-I High Sensitivity 25.6 ng/L (<3.5-17.0)
[2024-12-03 00:21] LABS: Appearance Urine Clear; Color Urine Yellow; Glucose Urine UA >=1000 mg/dL (Negative); Leukocyte Esterase Urine Negative (Negative); Nitrite Urine Negative (Negative); PH 5.5 (5.0-9.0); Specific Gravity - Urine >= 1.030 (1.005-1.025); UMIC TRIGGER UACC YES; Urine Blood Trace (Negative); Urine Ketones Negative (Negative); Urine Protein Negative (Neg-Trace)
[2024-12-03 00:24] LABS: Bacteria Urine None Seen (None Seen); Hyaline Casts Urine 0-2 /LPF (0-2); RBC Urine 0-2 /HPF (0-2); Squamous Epithelial Cell Urine 0-2 /HPF (0-2); WBC Urine 0-5 /HPF (0-5)
[2024-12-03] MEDS: Sodium Bicarbonate 8.4% 150 MEQ in Dextrose 5 % 850 ML 100 MEQ IV ×2 (00:30→13:09)
[2024-12-03 01:34] LABS: Erythrocyte Sedimentation Rate 7 MM/HR (0-20)
--- NOTE | 2024-12-03 02:36 | P.HPHOSP_ITS ---
History of Present Illness Date of Service: 12/03/24 Attending physician on admission: Raciel Arreguin Chief Complaint: Abnormal labs Denise Pitts is a 64 years old woman with past medical history significant for CAD s/p recent cardiac cath + cardiac stenting, type 2 diabetes mellitus on metformin, essential hypertension and hyperlipidemia presents to the emergency department after she was found to have elevated LFTs during blood outpatient workup. Patient stated that over the last 2 months she has been developing generalized weakness and myalgias especially in the shoulders and upper thighs. She did report very occasional headaches. Denied dizziness, chest pain or shortness on breath. She reported occasional heartburn on nausea as well. She denied vomiting, abdominal pain or diarrhea. There is no fever which was reported. She takes atorvastatin 20 mg for hyperlipidemia and was told to stop it. About 4 weeks ago the patient was found to have myocardial infarction at [facility] requiring cardiac stenting. She was initiated on aspirin, Brilinta and losartan. She did not report any tobacco smoking, alcohol abuse or illicit drug use. She denied any recent trauma or immobilization. She has no history of muscle disease. In the ED, she was found to have normal vital signs. Blood workup is remarkable for worsening total CK 8,144 --> 10,088. Transaminases are elevated, however, alk-phos and bilirubin are normal. TSH and free T4 are normal. There are no significant electrolyte imbalances except for mild hyperkalemia of 5.3. Renal function is adequate with a creatinine of 0.71 and BUN 15. Urinalysis showed elevated specific gravity, glucosuria, trace blood with normal RBCs. Review of Systems 2 Review of Systems: All 12 systems were reviewed and normal except as noted in HPI. [facility] Medical History STEMI (ST elevation myocardial infarction) GERD (gastroesophageal reflux disease) Physical exam, pre-employment Sebaceous cyst RUQ pain Cervical polyp Muscle strain of right scapular region H. pylori infection Overweight (BMI 25.0-29.9) Hypertension Hypothyroidism tiler (current) use of insulin Diabetes type 2, uncontrolled Family History Unknown No problems noted. Father Diabetes Heart disease Mother Diabetes Hypertension Heart disease Brother Lung cancer Sister Heart disease Surgical History History of coronary artery stent placement Hx of tubal ligation Hx of cholecystectomy Social History Household Members: Spouse and Children Housing: House Are you a primary healthcare administration internship to a significant other at home: No Do you presently have visiting nurse or other home services: No Alcohol intake: never Patient Tobacco Use Status: Never used Tobacco Tobacco use type: Cigarette Smoked in Last 30 Days: No e-Cigarette/Vaping Use: Never Used Second Hand Smoke Exposure: No Use of substances other than those prescribed or required for medical reasons: No Advance Directives: No Advance Directives Information Provided: No Do you have a plan to hurt others: No Plan Patient : No service: No Current occupational status: employed and disabled 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 [employer] Cognitive needs: No Hearing needs: No Vision needs: No Meds Allergies Allergy/AdvReac Type Severity Reaction Status Date / Time penicillin V Allergy Unknown hives Verified 12/02/24 19:18 Penicillins [PENICILLINS] Allergy Unknown RASH,DIZZIN Verified 12/02/24 19:18 ESS Active Medications: Current Medications Acetaminophen (Acetaminophen 325 Mg Tablet) 975 mg PO Q6H PRN PRN Reason: Pain, Mild 1-3,fever,headache Calcium Carbonate (Calcium Carbonate 750 Mg Tab.Chew) 750 mg PO Q4H PRN PRN Reason: Heartburn Sodium Bicarbonate 150 meq/ (Dextrose) 1,000 mls @ 100 mls/hr IV .Q10H ARIS Last Admin: 12/03/24 00:30 Dose: 100 mls/hr Magnesium Hydroxide (Milk Of Magnesia 30 Ml Oral.Susp) 30 ml PO DAILY PRN PRN Reason: Constipation Melatonin (Melatonin 3 Mg Tablet) 6 mg PO BEDTIME PRN PRN Reason: Insomnia Sodium Chloride (0.9 % Sodium Chloride Flush 3 Ml Syringe) 3 ml IVFLUSH QSHIFT [facility] Home Medications ?Medication ?Instructions ?Recorded ?Confirmed ?Last Taken ?Type blood glucose control high and low #1 ea 09/07/20 11/20/24 Unknown History solution (FreeStyle Control solution) lancets 33 gauge (TRUEplus Lancets) #100 ea 11/29/23 11/20/24 Unknown History aspirin 81 mg tablet,delayed 81 mg PO DAILY 11/20/24 11/23/24 Unknown History release (Adult Low Dose Aspirin) dapagliflozin propanediol 10 mg 10 mg PO DAILY 11/23/24 11/23/24 Unknown History tablet (Farxiga) linagliptin 5 mg tablet (Tradjenta) 5 mg PO DAILY 11/23/24 11/23/24 Unknown History ticagrelor 90 mg tablet (Brilinta) 90 mg PO BID 11/23/24 11/23/24 Unknown History losartan 25 mg tablet 25 mg PO DAILY 12/02/24 Unknown History metoprolol succinate 50 mg 50 mg PO DAILY 12/02/24 Unknown History tablet,extended release 24 hr atorvastatin 20 mg tablet 20 mg PO DAILY 12/03/24 12/03/24 Unknown History Physical Exam 2 Vital Signs and Narrative: Vital Signs: Last Vital Signs Temp 98.0 F 12/03/24 02:00 Pulse 76 12/03/24 02:00 Resp 18 12/03/24 02:00 BP 129/69 12/03/24 02:00 Pulse Ox 97 12/03/24 02:00 O2 Del Method Room Air 12/03/24 02:00 BMI result Body Mass Index 25.9 Constitutional - Awake and Alert, No apparent distress HEENT - PERRL, EOMI Heart - S1S2, RRR, No murmurs. Lungs - Normal lung expansion, Normal respiratory effort, No respiratory distress, CTA bilaterally Abdomen - NT / ND; +BS; No rebound or guarding Extremities - no calf tenderness bilaterally, no swelling Musculoskeletal - Normal inspection, normal ROM, tenderness over shoulder and upper thighs. Skin - Warm/Dry Neurological - Alert & oriented x3, CN III-XII in tact, 5/5 strength BUE and BLE Psychological - Appropriate affect Results Labs 12/02/24 21:10 12/02/24 21:10 Labs: Laboratory Results - last 24 hr 12/02/24 12/03/24 12/03/24 21:10 00:11 00:52 MCV 78.7 L MCH 26.5 L MCHC 33.7 RDW 14.6 Plt Count 447 H MPV 9.0 L Immature Gran % (Auto) 0.3 Neut % (Auto) 78.5 H Lymph % (Auto) 14.1 L [place] % (Auto) 5.6 Eos % (Auto) 1.0 Baso % (Auto) 0.5 Lymph # (Auto) 1.9 [place] # (Auto) 0.7 Eos # (Auto) 0.1 Baso # (Auto) 0.1 Abs Immat Gran (auto) 0.04 H Absolute Neuts (auto) 10.3 H Absolute Nucleated RBC 0.000 Nucleated RBC % (auto) 0.0 ESR 7 Anion Gap 14 Estim Creat Clear Calc 69.4 Estimated GFR > 60 Random Glucose 187 H Calcium 10.4 H Total Bilirubin 0.4 AST 263 H ALT 406 H Alkaline Phosphatase 65 Total Creatine Kinase 27477 H Troponin I High Sens 25.6 H C-Reactive Protein 0.10 Total Protein 7.5 Albumin 4.4 Urine Color Yellow Urine Appearance Clear Urine pH 5.5 Ur Specific [place] >= 1.030 H Urine Protein Negative Urine Glucose (UA) >=1000 H Urine Ketones Negative Urine Blood Trace H Urine Nitrite Negative Ur Leukocyte Esterase Negative Urine RBC 0-2 Urine WBC 0-5 Ur Squamous Epith Cells 0-2 Urine Bacteria None Seen Hyaline Casts 0-2 Assessment and Plan (1) Rhabdomyolysis: Qualifiers: Rhabdomyolysis type: non-traumatic Qualified Code(s): M62.82 - Rhabdomyolysis Status: Acute (2) CAD (coronary artery disease): Qualifiers: Coronary Disease-Associated Artery/Lesion type: unspecified vessel or lesion type [place] vs. transplanted heart: unspecified whether [place] or transplanted heart Associated angina: without angina Qualified Code(s): I25.10 - Atherosclerotic heart disease of [place] coronary artery without angina pectoris Status: Acute (3) Hyperkalemia: Status: Acute Plan Denise Pitts is a 64 y/o woman admitted with: * Rhabdomyolysis, cause is unclear; non-traumatic. Atorvastatin and/or Tradjenta - induced? Admit to hospitalist service. Hold atorvastatin and Tradjenta. Continue IV fluids: bicarb drip. Continue to monitor total CK. Check COVID, influenza and RSV. * Elevated transaminases (muscular, not liver), secondary to above. Continue to monitor. * Mild hyperkalemia. Hold losartan. On bicarb IV infusion. * CAD s/p cardiac stenting. Continue Brilinta and aspirin. * Type 2 diabetes mellitus. BG checks meals at bedtime. Insulin sliding scale. Diabetic diet. Metformin and Tradjenta on hold. * Hypothyroidism. TSH and free T4 are normal. Continue levothyroxine. * Essential hypertension. Restart losartan once hyperkalemia resolves. Continue to monitor BP. * Hyperlipidemia. Atorvastatin on hold due to rhabdomyolysis. * Vitamin-D deficiency. Continue vitamin-D supplementation. DVT prophylaxis: Patient takes Brilinta. Code status: Full. Patient admits to hospitalization for at least 2 midnights for rhabdomyolysis treatment with IV fluids. Quality Stroke Does the patient have a stroke diagnosis?: No VTE Prior VTE?: No VTE Risk Level:: Medical - moderate - high VTE Device Contraindication: Treatment Not Indicated VTE Drug Contraindication: N/A - Med Ordered
[2024-12-03] MEDS: 0.9 % Sodium Chloride 1,000 ML 999 ML IV (03:30)
[2024-12-03 04:15] LABS: Influenza A PCR NEGATIVE (Negative); Influenza B PCR NEGATIVE (Negative); Resp Syncy Virus RNA Qual PCR NEGATIVE (Negative); SARS COV2 PCR INHOUSE NEGATIVE (Negative)
[2024-12-03 04:52] LABS: MANUAL DIFF FLAG NO
[2024-12-03 04:55] LABS: Basophils Absolute Auto 0.1 X10*3/uL (0.0-0.2); Basophils Percent Auto 0.6 % (0-2); Eosinophils Absolute Auto 0.2 X10*3/uL (0.0-0.4); Eosinophils Percent Auto 1.6 % (0-4); Hematocrit 33.9 % (37.0-47.0); Hemoglobin 11.2 g/dl (12.0-16.0); Imm Gran Abs Auto 0.02 X10*3/uL (0.00-0.03); Imm Gran Pct Auto 0.2 % (0.0-0.4); Lymphocytes Absolute Auto 1.6 X10*3/uL (1.2-4.9); Lymphocytes Percent Auto 17.1 % (20-40); Mean Corpuscular Hemoglobin 26.4 pg (27.0-33.0); Mean Corpuscular Volume 79.8 fL (80.0-98.0); Mean Platelet Volume 9.3 fL (9.4-12.3); Monocytes Absolute Auto 0.7 X10*3/uL (0.1-1.2); Monocytes Percent Auto 7.1 % (2-11); Neutrophils Percent Auto 73.4 % (45-73); Platelet Count 366 X10*3/uL (160-400); Red Blood Count 4.25 X10*6/uL (4.20-5.50); Red Cell Distribution Width 14.6 % (11.0-16.0); White Blood Count 9.6 X10*3/uL (4.8-10.8)
[2024-12-03 05:12] LABS: Alanine Aminotransferase 312 U/L (0-31); Albumin Level 3.4 g/dL (3.5-5.0); Alkaline Phosphatase 54 U/L (39-117); Anion Gap 12 (12-20); Aspartate Amino Transferase 210 U/L (5-31); Bilirubin Total 0.4 mg/dL (0.0-1.0); Blood Urea Nitrogen 11 mg/dL (9-16); Calcium 8.6 mg/dL (8.4-10.2); Carbon Dioxide 25 mmol/L (22-29); Chloride 109 mmol/L (96-108); Creatinine Clr Calc Pharmacy 86.4; Estimated Glomerular Filt Rate > 60; Glucose Random 134 mg/dL (60-115); Potassium 4.2 mmol/L (3.3-5.1); Sodium 142 mmol/L (135-145); Total Protein 5.8 g/dL (6.5-8.0)
--- NOTE | 2024-12-03 05:22 | PC.NURSE ---
Pt is a 64 y/o f from home sent in by her PCP for abnormal labs. Per pt, labs were drawn earlier in the day and she was called to go to the ER for blood work but she was unsure of what labs were found to be abnormal. Outpatient bloodwork, LFTS were found to be elevated and CPK was found to be 8144. [place] [address] and potassium 5.3. Pt reports she has had increased cramps in her legs and feeling very weak but denies pain. Pt is a&ox4, speaking in full clear sentences, and ambulate with steady gait. Pt has 18G IV n RAC and has been medicated per mar, she received 1L of NACL and current infusion of Sodium Bicarb 8.4% in D5 running at 100 ml/hr. Pt being admitted for rhabdomylosis, mild hyperkalemia.
[2024-12-03] MEDS: Levothyroxine Sodium 150 MCG TABLET PO (06:11)
[2024-12-03 07:12] LABS: Glucose, Whole Blood 140 mg/dL (60-115)
--- NOTE | 2024-12-03 07:46 | PC.NURSE ---
Addendum entered by Marium Luis RN 12/03/24 08:39: Notified Harini TURNER regarding life vest. Patient at a high risk for defibrillation. Is scheduled to see her master ocean on 12/16/23. Original Note: Patient is wearing a Life vest from [facility].
--- NOTE | 2024-12-03 08:17 | PM.EVENT ---
Event Note Date of Service: 12/03/24 Event Note: 64-year-old woman admitted with rhabdomyolysis Rhabdomyolysis Unclear etiology at this time Atorvastatin and/or Tradjenta - induced?, recent cardiac catheterization Hold atorvastatin and Tradjenta. Continue IV fluids, bicarb drip. Continue to monitor total CK. COVID, influenza and RSV neg Elevated transaminases muscular, not liver, secondary to above. Continue to monitor. Mild hyperkalemia. Resolved Hold losartan. On bicarb IV infusion. CAD s/p cardiac stenting. Continue Brilinta and aspirin. Type 2 diabetes mellitus. BG checks meals at bedtime. Insulin sliding scale. Diabetic diet. Metformin and Tradjenta on hold. Hypothyroidism. TSH and free T4 are normal. Continue levothyroxine. Essential hypertension. Restart losartan once hyperkalemia resolves. Continue to monitor BP. Hyperlipidemia. Atorvastatin on hold due to rhabdomyolysis. Vitamin-D deficiency. Continue vitamin-D supplementation. DVT prophylaxis: Patient takes Brilinta. Code status: Full. Patient admits to hospitalization for at least 2 midnights for rhabdomyolysis treatment with IV fluids. Time Spent With Patient Time: Total time managing care of this patient today ____ minutes.
[2024-12-03] MEDS: Aspirin Enteric Coated 81 MG TABLET.DR PO (08:37)
[2024-12-03] MEDS: Ticagrelor 90 MG TABLET PO ×2 (08:37→20:54)
[2024-12-03] MEDS: Cholecalciferol (Vitamin D3) 25 MCG TABLET 50 MCG PO (08:37)
[2024-12-03] MEDS: Ferrous Sulfate 324 MG TABLET.DR PO ×2 (08:37→17:34)
--- NOTE | 2024-12-03 11:18 | PHA.MEDREC ---
Addendum entered by Karen López RPh 12/03/24 11:26: reviewed by [facility]. Original Note: Pharmacy Consult ? Medication Reconciliation Pharmacy has completed the medication reconciliation. Spoke to patient through cutting and splicing supervisor service (Alisha) to confirm med list. Patient had a medBOx list with her. Patient states patient is no longer taking Atorvastatin 80 mg, Lisinopril 30 mg, Pantoprazole 40 mg and Lantus Solostar U-100 last filled 11/20/24 for 30 days (patient decided to stop taking)
[2024-12-03 12:42] LABS: Glucose, Whole Blood 162 mg/dL (60-115)
[2024-12-03] MEDS: Insulin Lispro 100 UNIT/ML 3 ML VIAL SUBCUT ×2 (13:20→17:34)
[2024-12-03 16:27] LABS: Glucose, Whole Blood 189 mg/dL (60-115)
[2024-12-03 20:54] LABS: Glucose, Whole Blood 219 mg/dL (60-115)
[2024-12-03 20:54] LABS: Glucose, Whole Blood 167 mg/dL (60-115)
[2024-12-04] MEDS: Sodium Bicarbonate 8.4% 150 MEQ in Dextrose 5 % 850 ML 100 MEQ IV (00:15)
[2024-12-04 03:23] VITALS: BP 118/58; PULSE 63; RESP 16; TEMP 36.2; O2SAT 97
[2024-12-04] MEDS: Levothyroxine Sodium 150 MCG TABLET PO (06:07)
[2024-12-04 07:20] VITALS: BP 131/60; PULSE 71; RESP 18; TEMP 36.7; O2SAT 95
[2024-12-04 07:23] LABS: Alanine Aminotransferase 290 U/L (0-31); Albumin Level 3.5 g/dL (3.5-5.0); Alkaline Phosphatase 53 U/L (39-117); Anion Gap 11 (12-20); Aspartate Amino Transferase 171 U/L (5-31); Bilirubin Total 0.4 mg/dL (0.0-1.0); Blood Urea Nitrogen 12 mg/dL (9-16); Calcium 9.1 mg/dL (8.4-10.2); Carbon Dioxide 34 mmol/L (22-29); Chloride 102 mmol/L (96-108); Estimated Glomerular Filt Rate > 60; Glucose Random 164 mg/dL (60-115); Potassium 4.1 mmol/L (3.3-5.1); Sodium 143 mmol/L (135-145); Total Protein 6.2 g/dL (6.5-8.0)
[2024-12-04 07:32] LABS: Glucose, Whole Blood 173 mg/dL (60-115)
[2024-12-04] MEDS: Insulin Lispro 100 UNIT/ML 3 ML VIAL SUBCUT ×3 (08:30→21:33)
[2024-12-04] MEDS: Ferrous Sulfate 324 MG TABLET.DR PO ×2 (09:07→16:40)
[2024-12-04] MEDS: Cholecalciferol (Vitamin D3) 25 MCG TABLET 50 MCG PO (09:07)
[2024-12-04] MEDS: Losartan Potassium 25 MG TABLET PO (09:07)
[2024-12-04] MEDS: Metoprolol Succinate ER 50 MG TAB.ER.24H PO (09:07)
[2024-12-04] MEDS: Aspirin Enteric Coated 81 MG TABLET.DR PO (09:07)
[2024-12-04] MEDS: Ticagrelor 90 MG TABLET PO ×2 (09:07→20:42)
[2024-12-04 11:07] VITALS: BP 135/61; PULSE 80; RESP 18; TEMP 36.6; O2SAT 98
[2024-12-04 11:25] LABS: Glucose, Whole Blood 242 mg/dL (60-115)
--- NOTE | 2024-12-04 13:09 | HO.PM.IMPN ---
Subjective Subjective Date of Service: 12/04/24 Interval History: Seen and examined this morning Follow-up for rhabdomyolysis History obtained with the assistance of a manager talent management reporting predominantly lower extremity muscle soreness Review of Systems Review of Systems: Yes all other systems are reviewed and are negative Constitutional Constitutional: Denies chills and Denies fever(s) Cardiovascular Cardiovascular: Denies chest pain, Denies palpitations and Denies dyspnea Respiratory Respiratory: Denies cough and Denies dyspnea Endocrine Endocrine: Denies palpitations Physical Exam Vital Signs: Vital Signs: Last Vital Signs Temp 97.8 F 12/04/24 11:07 Pulse 80 12/04/24 11:07 Resp 18 12/04/24 11:07 BP 135/61 12/04/24 11:07 Pulse Ox 98 12/04/24 11:07 O2 Del Method Room Air 12/04/24 11:07 BMI result Body Mass Index 25.9 Const: General: cooperative, comfortable, alert and awake Nutritional Appearance: average body habitus Orientation/consciousness: patient oriented x3 Resp: Effort & Inspection: normal respiratory effort, able to speak in complete sentences, no respiratory distress and no use of accessory muscles Cardio: Rate: regular rate GI: Inspection: No distended Palpation (GI): Soft to palpation Neuro: General: patient oriented x3, moves all extremities and CN's II-XI intact bilaterally Extrem: General: Yes no pedal edema Objective Data Active Medications Acetaminophen (Acetaminophen 325 Mg Tablet) 975 mg PO Q6H PRN PRN Reason: Pain, Mild 1-3,fever,headache Aspirin (Aspirin Enteric Coated 81 Mg Tablet.) 81 mg PO DAILY [facility] Last Admin: 12/04/24 09:07 Dose: 81 mg Documented By: VIK Calcium Carbonate (Calcium Carbonate 750 Mg Tab.Chew) 750 mg PO Q4H PRN PRN Reason: Heartburn Ferrous Sulfate (Ferrous Sulfate 324 Mg Tablet.) 324 mg PO BIDWM [facility] Last Admin: 12/04/24 09:07 Dose: 324 mg Documented By: VIK Fluoxetine HCl (Fluoxetine Hcl 10 Mg Capsule) 10 mg PO DAILY [facility] Last Admin: 12/04/24 09:17 Dose: Not Given Documented By: VIK Non-Admin Reason: Patient Refused Glucose (Glucose Gel 15 Gm Gel..Gram.) 15 gm PO Q15M PRN; Protocol PRN Reason: per Hypoglycemia Standing Ord. Dextrose (D10) 250 mls @ 750 mls/hr IV Q15M PRN; Protocol PRN Reason: per Hypoglycemia Standing Ord. Insulin Human Lispro (Insulin Lispro 100 Unit/Ml 3 Ml Vial) 0 unit SUBCUT QIDACHS [facility]; Protocol Last Admin: 12/04/24 11:37 Dose: 4 unit Documented By: VIK Levothyroxine Sodium (Levothyroxine Sodium 150 Mcg Tablet) 150 mcg PO DAILY@0630 [facility] Last Admin: 12/04/24 06:07 Dose: 150 mcg Documented By: ELLYN Levothyroxine Sodium (Levothyroxine Sodium 150 Mcg Tablet) 150 mcg PO DAILY@0600 [facility] Last Admin: 12/04/24 06:06 Dose: Not Given Documented By: ELLYN Non-Admin Reason: See Note Losartan Potassium (Losartan Potassium 25 Mg Tablet) 25 mg PO DAILY [facility]; Protocol Last Admin: 12/04/24 09:07 Dose: 25 mg Documented By: VIK Magnesium Hydroxide (Milk Of Magnesia 30 Ml Oral.Susp) 30 ml PO DAILY PRN PRN Reason: Constipation Melatonin (Melatonin 3 Mg Tablet) 6 mg PO BEDTIME PRN PRN Reason: Insomnia Metoprolol Succinate (Metoprolol Succinate Er 50 Mg Tab.Er.24h) 50 mg PO DAILY [facility]; Protocol Last Admin: 12/04/24 09:07 Dose: 50 mg Documented By: VIK Sodium Chloride (0.9 % Sodium Chloride Flush 3 Ml Syringe) 3 ml IVFLUSH QSHIFT [facility] Last Admin: 12/04/24 09:08 Dose: Not Given Documented By: VIK Non-Admin Reason: IV Running Ticagrelor (Ticagrelor 90 Mg Tablet) 90 mg PO BID [facility] Last Admin: 12/04/24 09:07 Dose: 90 mg Documented By: VIK Vitamin D (Cholecalciferol (Vitamin D3) 25 Mcg Tablet) 50 mcg PO DAILY [facility] Last Admin: 12/04/24 09:07 Dose: 50 mcg Documented By: VIK Labs 12/03/24 04:30 12/04/24 06:53 Labs: Laboratory Results - last 24 hr 12/03/24 12/03/24 12/03/24 16:22 18:19 20:47 Hold Purple Top Anion Gap Estim Creat Clear Calc Estimated GFR POC Glucose 189 H 219 H 167 H Random Glucose Calcium Total Bilirubin AST ALT Alkaline Phosphatase Total Creatine Kinase Total Protein Albumin 12/04/24 12/04/24 12/04/24 06:53 07:17 11:01 Hold Purple Top SEE NOTE Anion Gap 11 L Estim Creat Clear Calc 93.0 Estimated GFR > 60 POC Glucose 173 H 242 H Random Glucose 164 H Calcium 9.1 Total Bilirubin 0.4 AST 171 H ALT 290 H Alkaline Phosphatase 53 Total Creatine Kinase 5568 H Total Protein 6.2 L Albumin 3.5 Assessment and Plan (1) Rhabdomyolysis: Status: Acute Plan this is a 64-year-old woman admitted with rhabdomyolysis Rhabdomyolysis Unclear etiology at this time Atorvastatin and/or Tradjenta - induced?, recent cardiac catheterization Hold atorvastatin and Tradjenta. Continue IV fluids s/p bicar drip CKP trending down COVID, influenza and RSV neg Elevated transaminases muscular, not liver, secondary to above. trending down Mild hyperkalemia. Resolved CAD s/p cardiac stenting. Continue Brilinta and aspirin, BB statin on hold due to above has life vest Type 2 diabetes mellitus. Follow POCs, SSI; ADA diet Metformin and Tradjenta on hold. Hypothyroidism. TSH and free T4 are normal. Continue levothyroxine. Essential hypertension. Continue losartan, metoprolol Hyperlipidemia. Atorvastatin on hold due to rhabdomyolysis. Vitamin-D deficiency. Continue vitamin-D supplementation. DVT prophylaxis: Patient takes Brilinta. Code status: Full. Requires ongoing inpatient stay for IV fluid and close monitoring Quality Stroke Does the patient have a stroke diagnosis?: No VTE Prior VTE?: No VTE Risk Level:: Medical - moderate - high VTE Device Contraindication: Treatment Not Indicated VTE Drug Contraindication: N/A - Med Ordered
--- NOTE | 2024-12-04 13:53 | MHC.CM.PN ---
Pt lives with her and dtr, she is independent, no home health services or DME. She was at [facility] about 4 weeks ago and had [facility] services when she went home. CM will send update to [facility]. [place] at [place] will be by family. HCP discussed, pt could not remember who she named, CM will contact [facility] for copy. PCP confirmed: Dr. Garcia. DCP: home with services. CM to follow for DC needs.
[2024-12-04 15:30] VITALS: BP 138/72; PULSE 66; RESP 17; TEMP 36.8; O2SAT 96
[2024-12-04] MEDS: Lactated Ringers 1,000 ML 80 ML IVCONT (15:55)
[2024-12-04 16:11] LABS: Glucose, Whole Blood 130 mg/dL (60-115)
[2024-12-04 20:00] VITALS: BP 137/62; PULSE 70; RESP 16; TEMP 36.1; O2SAT 99
[2024-12-04 21:26] LABS: Glucose, Whole Blood 206 mg/dL (60-115)
[2024-12-04 23:26] VITALS: BP 117/60; PULSE 69; RESP 18; TEMP 36.8; O2SAT 97
[2024-12-05 03:23] VITALS: BP 130/63; PULSE 66; RESP 20; TEMP 36.5; O2SAT 98
[2024-12-05] MEDS: Levothyroxine Sodium 150 MCG TABLET PO (06:06)
[2024-12-05 07:33] VITALS: BP 117/59; PULSE 63; RESP 14; TEMP 36.6; O2SAT 97
[2024-12-05 07:45] LABS: Glucose, Whole Blood 142 mg/dL (60-115)
[2024-12-05] MEDS: Cholecalciferol (Vitamin D3) 25 MCG TABLET 50 MCG PO (09:17)
[2024-12-05] MEDS: Ticagrelor 90 MG TABLET PO ×2 (09:17→20:43)
[2024-12-05] MEDS: Aspirin Enteric Coated 81 MG TABLET.DR PO (09:17)
[2024-12-05] MEDS: Ferrous Sulfate 324 MG TABLET.DR PO ×2 (09:17→17:30)
[2024-12-05] MEDS: Losartan Potassium 25 MG TABLET PO (09:17)
[2024-12-05] MEDS: Metoprolol Succinate ER 50 MG TAB.ER.24H PO (09:17)
[2024-12-05] MEDS: 0.9 % Sodium Chloride Flush 3 ML SYRINGE IVFLUSH (09:18)
[2024-12-05] MEDS: Lactated Ringers 1,000 ML 100 ML IVCONT ×2 (09:20→17:30)
--- NOTE | 2024-12-05 10:05 | PM.CNCAR ---
History of Present Illness History of Present Illness Date of Service: 12/05/24 Chief complaint: Rhabdomyolysis Narrative: This is a cardiology consultation regarding rhabdomyolysis. It appears that she had an anterior wall NV last month and underwent primary PCI at [facility]. She had ostial LAD stenting. She was discharged home and then readmitted and it seems she got transferred back but did not get a repeat catheterization. Meds were optimized and she was discharged home. She is not having any active cardiac symptoms at this time. It seems that she has a history of abnormal LFTs going back some time. Even [facility] discharge summary states that statins are being held and that she needs further workup as an outpatient. Her symptoms are rather myalgias related than anything else. CKs are indeed abnormal suggestive of rhabdomyolysis. Review of Systems Review of Systems: Yes all other systems are reviewed and are negative Constitutional: Constitutional: Reports as per HPI, Reports no additional constitutional complaints and Reports malaise Eyes: Eyes: Reports as per HPI and Denies no additional eye complaints ENT: Denies system reviewed and no additional complaints, except as documented and Reports as per HPI Cardiovascular: Cardiovascular: Reports as per HPI, Reports no additional cardiovascular complaints, Denies acrocyanosis, Denies cool extremities, Denies chest pain, Denies leg edema, Denies lightheadedness, Denies palpitations and Denies dyspnea Respiratory: Respiratory: Reports as per HPI, Denies no additional respiratory complaints and Denies dyspnea Gastrointestinal: Gastrointestinal: Reports as per HPI and Denies no additional gastrointestinal complaints Genitourinary: Genitourinary: Reports as per HPI Musculoskeletal: Musculoskeletal: Reports no additional musculoskeletal complaints, Reports as per HPI and Reports muscle cramps Integumentary/Breasts: Skin/Breast: Reports system reviewed and no additional complaints, except as docu Neurologic: Reports system reviewed and no additional complaints, except as documented and Reports as per HPI Psychiatric: Psychiatric: Reports no additional psychiatric complaints and Reports as per HPI Endocrine: Endocrine: Reports no additional endocrine complaints, Reports as per HPI and Denies palpitations Hematologic/Lymphatic: Hematologic/Lymphatic: Reports no additional hematologic/lymphatic complaints and Reports as per HPI Allergic/Immunologic: Allergic/Immunologic: Reports no additional allergic/immunologic complaints and Reports as per HPI [facility] Past Medical History Medical History STEMI (ST elevation myocardial infarction) GERD (gastroesophageal reflux disease) Physical exam, pre-employment Sebaceous cyst RUQ pain Cervical polyp Muscle strain of right scapular region H. 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 Father Diabetes Heart disease Mother Diabetes Hypertension Heart disease Brother Lung cancer Sister Heart disease Surgical History Surgical History History of coronary artery stent placement Hx of tubal ligation Hx of cholecystectomy Social History Social History Household Members: Family Housing: House Are you a primary specialist wound care to a significant other at home: No Do you presently have visiting nurse or other home services: Yes Alcohol intake: never Patient Tobacco Use Status: Never used Tobacco Tobacco use type: Cigarette e-Cigarette/Vaping Use: Never Used Second Hand Smoke Exposure: No service: No Current occupational status: employed and disabled 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 Cognitive needs: No Hearing needs: No Vision needs: No Meds Allergies Allergy/AdvReac Type Severity Reaction Status Date / Time penicillin V Allergy Unknown hives Verified 12/02/24 19:18 Penicillins [PENICILLINS] Allergy Unknown RASH,DIZZIN Verified 12/02/24 19:18 ESS Active Medications: Current Medications Acetaminophen (Acetaminophen 325 Mg Tablet) 975 mg PO Q6H PRN PRN Reason: Pain, Mild 1-3,fever,headache Aspirin (Aspirin Enteric Coated 81 Mg Tablet.) 81 mg PO DAILY [facility] Last Admin: 12/05/24 09:17 Dose: 81 mg Calcium Carbonate (Calcium Carbonate 750 Mg Tab.Chew) 750 mg PO Q4H PRN PRN Reason: Heartburn Ferrous Sulfate (Ferrous Sulfate 324 Mg Tablet.) 324 mg PO BIDWM [facility] Last Admin: 12/05/24 09:17 Dose: 324 mg Fluoxetine HCl (Fluoxetine Hcl 10 Mg Capsule) 10 mg PO DAILY [facility] Last Admin: 12/05/24 09:17 Dose: Not Given Glucose (Glucose Gel 15 Gm Gel..Gram.) 15 gm PO Q15M PRN; Protocol PRN Reason: per Hypoglycemia Standing Ord. Dextrose (D10) 250 mls @ 750 mls/hr IV Q15M PRN; Protocol PRN Reason: per Hypoglycemia Standing Ord. Lactated Ringer's (Lr) 1,000 mls @ 100 mls/hr IVCONT .Q10H [facility] Last Admin: 12/05/24 09:20 Dose: 100 mls/hr Insulin Human Lispro (Insulin Lispro 100 Unit/Ml 3 Ml Vial) 0 unit SUBCUT QIDACHS [facility]; Protocol Last Admin: 12/05/24 07:52 Dose: Not Given Levothyroxine Sodium (Levothyroxine Sodium 150 Mcg Tablet) 150 mcg PO DAILY@0630 [facility] Last Admin: 12/05/24 06:06 Dose: 150 mcg Losartan Potassium (Losartan Potassium 25 Mg Tablet) 25 mg PO DAILY [facility]; Protocol Last Admin: 12/05/24 09:17 Dose: 25 mg Magnesium Hydroxide (Milk Of Magnesia 30 Ml Oral.Susp) 30 ml PO DAILY PRN PRN Reason: Constipation Melatonin (Melatonin 3 Mg Tablet) 6 mg PO BEDTIME PRN PRN Reason: Insomnia Metoprolol Succinate (Metoprolol Succinate Er 50 Mg Tab.Er.24h) 50 mg PO DAILY [facility]; Protocol Last Admin: 12/05/24 09:17 Dose: 50 mg Sodium Chloride (0.9 % Sodium Chloride Flush 3 Ml Syringe) 3 ml IVFLUSH QSHIFT [facility] Last Admin: 12/05/24 09:18 Dose: 3 ml Ticagrelor (Ticagrelor 90 Mg Tablet) 90 mg PO BID [facility] Last Admin: 12/05/24 09:17 Dose: 90 mg Vitamin D (Cholecalciferol (Vitamin D3) 25 Mcg Tablet) 50 mcg PO DAILY [facility] Last Admin: 12/05/24 09:17 Dose: 50 mcg Home Medications ?Medication ?Instructions ?Recorded ?Confirmed ?Last Taken ?Type blood glucose control high and low #1 ea 09/07/20 11/20/24 Unknown History solution (FreeStyle Control solution) lancets 33 gauge (TRUEplus Lancets) #100 ea 11/29/23 11/20/24 Unknown History aspirin 81 mg tablet,delayed 81 mg PO DAILY 11/20/24 12/03/24 12/03/24 History release (Adult Low Dose Aspirin) dapagliflozin propanediol 10 mg 10 mg PO DAILY 11/23/24 12/03/24 12/03/24 History tablet (Farxiga) linagliptin 5 mg tablet (Tradjenta) 5 mg PO DAILY 11/23/24 12/03/24 12/03/24 History ticagrelor 90 mg tablet (Brilinta) 90 mg PO BID 11/23/24 12/03/24 12/03/24 History losartan 25 mg tablet 25 mg PO DAILY 12/02/24 12/03/24 12/03/24 History levothyroxine 150 mcg tablet 150 mcg PO DAILY@0600 12/03/24 12/03/24 12/03/24 History melatonin 5 mg capsule 5 mg PO BEDTIME 12/03/24 12/03/24 12/03/24 History Physical Exam Vital Signs: Vital Signs: Last Vital Signs Temp 97.8 F 12/05/24 07:33 Pulse 63 12/05/24 07:33 Resp 14 12/05/24 07:33 BP 117/59 L 12/05/24 07:33 Pulse Ox 97 12/05/24 07:33 O2 Del Method Room Air 12/05/24 07:33 BMI result Body Mass Index 25.9 Const: General: comfortable and no acute distress Orientation/consciousness: patient oriented x3 HEENT: Other: Unremarkable Head: Yes normal to inspection Neck: Neck: Yes normal visual inspection Chest: Chest palpation & inspection: normal inspection of the chest Resp: Auscultation: clear to auscultation bilaterally Cardio: Palpation: normal PMI Heart sounds: S1 normal heart sound present, S2 normal heart sound present, no gallops, no murmurs and no rubs GI: Palpation (GI): Soft to palpation Back/Spine/Pelvis: Other: unremarkable Skin: General skin exam: no rashes or lesions noted Neuro: General: patient oriented x3 Extrem: General: Yes normal to inspection Psych: Mental Status: mental status grossly normal Objective Labs and Meds 12/03/24 04:30 12/04/24 06:53 Lab results: Laboratory Results - last 24 hr 12/04/24 12/04/24 12/04/24 11:01 16:03 21:22 POC Glucose 242 H 130 H 206 H Total Creatine Kinase 12/05/24 12/05/24 06:06 07:31 POC Glucose 142 H Total Creatine Kinase 5916 H Assessment and Plan (1) CAD (coronary artery disease): Qualifiers: Coronary Disease-Associated Artery/Lesion type: unspecified vessel or lesion type [place] vs. transplanted heart: unspecified whether [place] or transplanted heart Associated angina: without angina Qualified Code(s): I25.10 - Atherosclerotic heart disease of [place] coronary artery without angina pectoris Status: Acute (2) Rhabdomyolysis: Qualifiers: Rhabdomyolysis type: non-traumatic Qualified Code(s): M62.82 - Rhabdomyolysis Status: Acute (3) Abnormal LFTs: Status: Acute Plan Coronary disease, recent LAD PCI, initial LVEF of 25-30% but recovered to 60-65%. May keep her on aspirin/Brilinta. With regard to the abnormal LFTs, it has been this way for more than a year. The last normal LFTs are from January of 2023. Per [facility] discharge summary, she has not been given statins and hence do not think that is the cause. We will need to get GI to see. With regard to the rhabdomyolysis again not clear as to the etiology as she was given statins per the [facility] discharge summary. Discuss with rheumatology. IV hydration. From cardiac standpoint, she may follow up with her own outpatient metrology technician. She has an upcoming appointment. Procedures Date of Service Date of Service: 12/05/24
[2024-12-05 11:16] LABS: Glucose, Whole Blood 298 mg/dL (60-115)
[2024-12-05 11:17] VITALS: BP 118/77; PULSE 65; RESP 16; TEMP 36.4; O2SAT 97
[2024-12-05] MEDS: Insulin Lispro 100 UNIT/ML 3 ML VIAL SUBCUT ×2 (12:02→20:43)
--- NOTE | 2024-12-05 14:21 | P.PNIM_ITS ---
Subjective Subjective Date of Service: 12/05/24 Interval History: Seen and examined this morning Follow-up for rhabdomyolysis myalgias improving Review of Systems Review of Systems: Yes all other systems are reviewed and are negative Constitutional Constitutional: Denies chills and Denies fever(s) Cardiovascular Cardiovascular: Denies chest pain Physical Exam 2 Vital Signs: Vital Signs: Last Vital Signs Temp 97.5 F 12/05/24 11:17 Pulse 65 12/05/24 11:17 Resp 16 12/05/24 11:17 BP 118/77 12/05/24 11:17 Pulse Ox 97 12/05/24 11:17 O2 Del Method Room Air 12/05/24 11:17 BMI result Body Mass Index 25.9 Const: General: cooperative, comfortable, alert and awake Nutritional Appearance: average body habitus Orientation/consciousness: patient oriented x3 Resp: Effort & Inspection: normal respiratory effort, able to speak in complete sentences, no respiratory distress and no use of accessory muscles Cardio: Rate: regular rate GI: Inspection: No distended Palpation (GI): Soft to palpation Neuro: General: patient oriented x3, moves all extremities and CN's II-XI intact bilaterally Extrem: General: Yes no pedal edema Objective Data Active Medications Acetaminophen (Acetaminophen 325 Mg Tablet) 975 mg PO Q6H PRN PRN Reason: Pain, Mild 1-3,fever,headache Aspirin (Aspirin Enteric Coated 81 Mg Tablet.) 81 mg PO DAILY [facility] Last Admin: 12/05/24 09:17 Dose: 81 mg Documented By: VIK Calcium Carbonate (Calcium Carbonate 750 Mg Tab.Chew) 750 mg PO Q4H PRN PRN Reason: Heartburn Ferrous Sulfate (Ferrous Sulfate 324 Mg Tablet.) 324 mg PO BIDWM [facility] Last Admin: 12/05/24 09:17 Dose: 324 mg Documented By: VIK Fluoxetine HCl (Fluoxetine Hcl 10 Mg Capsule) 10 mg PO DAILY [facility] Last Admin: 12/05/24 09:17 Dose: Not Given Documented By: VIK Non-Admin Reason: Patient Refused Glucose (Glucose Gel 15 Gm Gel..Gram.) 15 gm PO Q15M PRN; Protocol PRN Reason: per Hypoglycemia Standing Ord. Dextrose (D10) 250 mls @ 750 mls/hr IV Q15M PRN; Protocol PRN Reason: per Hypoglycemia Standing Ord. Lactated Ringer's (Lr) 1,000 mls @ 100 mls/hr IVCONT .Q10H [facility] Last Admin: 12/05/24 09:20 Dose: 100 mls/hr Documented By: VIK Insulin Human Lispro (Insulin Lispro 100 Unit/Ml 3 Ml Vial) 0 unit SUBCUT QIDACHS [facility]; Protocol Last Admin: 12/05/24 12:02 Dose: 6 unit Documented By: VIK Levothyroxine Sodium (Levothyroxine Sodium 150 Mcg Tablet) 150 mcg PO DAILY@0630 [facility] Last Admin: 12/05/24 06:06 Dose: 150 mcg Documented By: ALAYNA Losartan Potassium (Losartan Potassium 25 Mg Tablet) 25 mg PO DAILY [facility]; Protocol Last Admin: 12/05/24 09:17 Dose: 25 mg Documented By: VIK Magnesium Hydroxide (Milk Of Magnesia 30 Ml Oral.Susp) 30 ml PO DAILY PRN PRN Reason: Constipation Melatonin (Melatonin 3 Mg Tablet) 6 mg PO BEDTIME PRN PRN Reason: Insomnia Metoprolol Succinate (Metoprolol Succinate Er 50 Mg Tab.Er.24h) 50 mg PO DAILY [facility]; Protocol Last Admin: 12/05/24 09:17 Dose: 50 mg Documented By: VIK Sodium Chloride (0.9 % Sodium Chloride Flush 3 Ml Syringe) 3 ml IVFLUSH QSHIFT [facility] Last Admin: 12/05/24 09:18 Dose: 3 ml Documented By: VIK Ticagrelor (Ticagrelor 90 Mg Tablet) 90 mg PO BID [facility] Last Admin: 12/05/24 09:17 Dose: 90 mg Documented By: VIK Vitamin D (Cholecalciferol (Vitamin D3) 25 Mcg Tablet) 50 mcg PO DAILY [facility] Last Admin: 12/05/24 09:17 Dose: 50 mcg Documented By: VIK Labs 12/03/24 04:30 12/04/24 06:53 Labs: Laboratory Results - last 24 hr 12/04/24 12/04/24 12/05/24 16:03 21:22 06:06 POC Glucose 130 H 206 H Total Creatine Kinase 5916 H 12/05/24 12/05/24 07:31 11:07 POC Glucose 142 H 298 H Total Creatine Kinase Assessment and Plan (1) Abnormal LFTs: Status: Acute (2) Rhabdomyolysis: Status: Acute Plan this is a 64-year-old woman admitted with rhabdomyolysis Rhabdomyolysis Atorvastatin has been on hold for the past several weeks due to elevated LFTs Upon review of chart, CPK is high as 5000 even at the beginning of October Hold atorvastatin Continue IV fluids s/p bicarb drip CKPK trending down from admission but plateaued, still at 5916 today COVID, influenza and RSV neg will likely need outpatient rheumatology eval Elevated transaminases muscular, not liver, secondary to above. trending down Mild hyperkalemia. Resolved CAD s/p cardiac stenting. Continue Brilinta and aspirin, BB statin on hold due to above has life vest Type 2 diabetes mellitus. Follow POCs, SSI; ADA diet Metformin and Tradjenta on hold. Hypothyroidism. TSH and free T4 are normal. Continue levothyroxine. Essential hypertension. Continue losartan, metoprolol Hyperlipidemia. Atorvastatin on hold due to rhabdomyolysis. Vitamin-D deficiency. Continue vitamin-D supplementation. DVT prophylaxis: Patient takes Brilinta. Code status: Full. Requires ongoing inpatient stay for IV fluid and close monitoring Quality Stroke Does the patient have a stroke diagnosis?: No VTE Prior VTE?: No VTE Risk Level:: Medical - moderate - high VTE Device Contraindication: Treatment Not Indicated VTE Drug Contraindication: N/A - Med Ordered
[2024-12-05 15:49] VITALS: BP 136/65; PULSE 66; RESP 17; TEMP 36.1; O2SAT 99
[2024-12-05 16:22] LABS: Glucose, Whole Blood 118 mg/dL (60-115)
[2024-12-05 19:45] VITALS: BP 144/67; PULSE 76; RESP 16; TEMP 36.4; O2SAT 100
[2024-12-05 20:33] LABS: Glucose, Whole Blood 177 mg/dL (60-115)
[2024-12-06] VITALS: BP 148/65; PULSE 67; RESP 16; TEMP 36; O2SAT 99
[2024-12-06] MEDS: Lactated Ringers 1,000 ML 100 ML IVCONT (03:42)
[2024-12-06 03:50] VITALS: BP 127/61; PULSE 59; RESP 16; TEMP 36.4; O2SAT 98
[2024-12-06] MEDS: Levothyroxine Sodium 150 MCG TABLET PO (06:49)
--- NOTE | 2024-12-06 07:16 | PC.NURSE ---
Pt reported having her life vest and inquired about having to keep it on. Reached out to Dr. Cabezas to verify and confirmed that it should be left on. Pt advised and this nurse assisted pt in putting the life vest back on. Pt resting comfortably in bed with call burgos within reach.
[2024-12-06 07:59] VITALS: BP 145/64; PULSE 65; RESP 16; TEMP 36.3; O2SAT 99
[2024-12-06 08:06] LABS: Glucose, Whole Blood 141 mg/dL (60-115)
[2024-12-06] MEDS: Metoprolol Succinate ER 50 MG TAB.ER.24H PO (08:07)
[2024-12-06] MEDS: Aspirin Enteric Coated 81 MG TABLET.DR PO (08:07)
[2024-12-06] MEDS: Losartan Potassium 25 MG TABLET PO (08:07)
[2024-12-06] MEDS: Ferrous Sulfate 324 MG TABLET.DR PO (08:07)
[2024-12-06] MEDS: Cholecalciferol (Vitamin D3) 25 MCG TABLET 50 MCG PO (08:07)
[2024-12-06] MEDS: 0.9 % Sodium Chloride Flush 3 ML SYRINGE IVFLUSH (08:08)
[2024-12-06] MEDS: Ticagrelor 90 MG TABLET PO (08:08)
[2024-12-06 10:54] VITALS: BP 113/52; PULSE 59; RESP 16; TEMP 36.1; O2SAT 97
[2024-12-06 11:20] LABS: Glucose, Whole Blood 330 mg/dL (60-115)
--- NOTE | 2024-12-06 11:53 | PM.DS ---
DS: Providers Provider Date of Service: 12/06/24 Date of admission: 12/03/24 02:31 Date of discharge: 12/06/24 Primary care physician: Conor Garcia MD Consults: 12/04/24 13:10 Consult to Cardiology Routine Consulting Provider: [facility] Reason for consultation: off statin due to rhabdo; recent STEMI/stent ?med adjustments Has provider been notified: No 12/05/24 11:13 Consult to Gastroenterology Routine Consulting Provider: Timbo Ibarra Reason for consultation: elevated cpk ? liver dz Has provider been notified: No Attending physician on discharge: Sarmad Guadalupe Discharging clinician: Jojo Best DS: Diagnosis Discharge Diagnosis (1) Abnormal LFTs: Status: Acute (2) Rhabdomyolysis: Status: Acute DS: Summary Hospital Course Hospital Course: From H&P on the day of admission Denise Pitts is a 64 years old woman with past medical history significant for CAD s/p recent cardiac cath + cardiac stenting, type 2 diabetes mellitus on metformin, essential hypertension and hyperlipidemia presents to the emergency department after she was found to have elevated LFTs during blood outpatient workup. Patient stated that over the last 2 months she has been developing generalized weakness and myalgias especially in the shoulders and upper thighs. She did report very occasional headaches. Denied dizziness, chest pain or shortness on breath. She reported occasional heartburn on nausea as well. She denied vomiting, abdominal pain or diarrhea. There is no fever which was reported. She takes atorvastatin 20 mg for hyperlipidemia and was told to stop it. About 4 weeks ago the patient was found to have myocardial infarction at [facility] requiring cardiac stenting. She was initiated on aspirin, Brilinta and losartan. She did not report any tobacco smoking, alcohol abuse or illicit drug use. She denied any recent trauma or immobilization. She has no history of muscle disease. In the ED, she was found to have normal vital signs. Blood workup is remarkable for worsening total CK 8,144 --> 10,088. Transaminases are elevated, however, alk-phos and bilirubin are normal. TSH and free T4 are normal. There are no significant electrolyte imbalances except for mild hyperkalemia of 5.3. Renal function is adequate with a creatinine of 0.71 and BUN 15. Urinalysis showed elevated specific gravity, glucosuria, trace blood with normal RBCs. Rhabdomyolysis Atorvastatin has been on hold for the past several weeks due to elevated LFTs Upon review of chart, CPK is high as 5000 even at the beginning of October. Was treated with IVF, renal function remained stable. CPK initially trendied down from admission but plateaued around 5000, similar to the beginning of october. COVID, influenza and RSV neg. discussed with nephrology, no further workup recommended, can follow up outpatient.Will refer to rheumatology for further work up including possible myositis, may need muscle biopsy. Elevated transaminases muscular, not liver, secondary to above. LFTs have been abnormal since july of 2023.hepatitis screen negative, previous abdominal US negative. d/w GI, not liver related, no indication for further GI workup. Has been off statin for several weeks. n Mild hyperkalemia. Resolved Time Attestation Discharge Coordination Time (in mins): 36 Quality: Safe Use of Opioids Does Pt have an Active Cancer Diagnosis on the Problem List?: No Quality: Stroke Does the patient have a stroke diagnosis?: No Physical Exam Vital Signs: Vital Signs: Last Vital Signs Temp 96.9 F 12/06/24 10:54 Pulse 59 12/06/24 10:54 Resp 16 12/06/24 10:54 BP 113/52 L 12/06/24 10:54 Pulse Ox 97 12/06/24 10:54 O2 Del Method Room Air 12/06/24 10:54 BMI result Body Mass Index 25.9 Const: General: cooperative, comfortable, alert and awake Nutritional Appearance: average body habitus Orientation/consciousness: patient oriented x3 Resp: Effort & Inspection: normal respiratory effort, able to speak in complete sentences, no respiratory distress and no use of accessory muscles Cardio: Rate: regular rate GI: Inspection: No distended Palpation (GI): Soft to palpation Neuro: General: patient oriented x3, moves all extremities and CN's II-XI intact bilaterally Extrem: General: Yes no pedal edema DS: Data Data Completed and Pending Labs on day of discharge: Laboratory Results - last 24 hr 12/05/24 12/05/24 12/06/24 16:14 20:08 05:31 Hold Purple Top SEE NOTE POC Glucose 118 H 177 H Total Creatine Kinase 5220 H 12/06/24 12/06/24 08:02 10:56 Hold Purple Top POC Glucose 141 H 330 H Total Creatine Kinase Discharge Plan Discharge Anticipated Discharge Date/Time: 12/06/24 12:38 Patient Disposition: Home, Self-Care Discharge Diagnosis: Rhabdomyolysis elevated LFTs Referrals: Conor Garcia MD [Primary Care Provider] - 1 Week Cory Stokes MD [Physician] - 1 Week (persistently elevated CPK) Discharge Medications: Continued (DME) pen needle, diabetic [BD Corin 2nd Gen Pen Needle] 32 gauge x needle See Rx Instructions .MEDSUPPLY Qty: 100 4RF Rx Instructions: once a day ferrous sulfate 325 mg (65 mg iron) Tablet 325 mg PO BID Qty: 60 6RF (DME) pen needle, diabetic [BD Ultra-Fine Corin Pen Needle] 32 gauge x needle See Rx Instructions .Route Qty: 100 1RF Rx Instructions: As directed cholecalciferol (vitamin D3) 50 mcg (2,000 unit) capsule 50 mcg PO DAILY Qty: 90 3RF fluoxetine 10 mg capsule 10 mg PO DAILY Qty: 90 1RF metformin 1,000 mg tablet 1,000 mg PO BID Qty: 180 1RF (DME) FreeStyle Lite Strips Strip See Rx Instructions .ROUTE .MEDSUPPLY Qty: 100 5RF Rx Instructions: 3 times a day (DME) blood-glucose meter [FreeStyle Lite Meter] Kit See Rx Instructions .Route Qty: 1 0RF Rx Instructions: As directed TID (DME) blood pessure cuff See Rx Instructions .Route .MEDSUPPLY Qty: 1 0RF Rx Instructions: As directed levothyroxine 150 mcg tablet 150 mcg PO DAILY@0600 melatonin 5 mg capsule 5 mg PO BEDTIME Brilinta 90 mg tablet 90 mg PO BID dapagliflozin propanediol [Farxiga] 10 mg tablet 10 mg PO DAILY (DME) lancets [TRUEplus Lancets] 33 gauge misc See Rx Instructions .ROUTE TID Qty: 100 Rx Instructions: As directed check BS TID (DME) lancets [FreeStyle Lancets] 28 gauge misc See Rx Instructions .ROUTE .MEDSUPPLY Qty: 100 11RF Rx Instructions: As directed three times a day (DME) FreeStyle Control Solution See Rx Instructions .ROUTE .MEDSUPPLY Qty: 1 Rx Instructions: As directed (DME) pen needle, diabetic [BD Ultra-Fine Corin Pen Needle] 32 gauge x 5/32 needle See Rx Instructions .ROUTE .MEDSUPPLY Qty: 100 3RF Rx Instructions: As directed once daily aspirin [Adult Low Dose Aspirin] 81 mg tablet,delayed release (DR/EC) 81 mg PO DAILY losartan 25 mg tablet 25 mg PO DAILY metoprolol succinate 50 mg tablet extended release 24 hr 50 mg PO DAILY Qty: 90 3RF Held Tradjenta 5 mg tablet 5 mg PO DAILY Hold Instructions: may cause myalgias, hold and follow up with PCP Discharge Orders: Discharge Order (Routine); Ordered 12/06/24 Ordered By: Jojo Best Activity on Discharge: As tolerated Stand Alone Forms: Patient Portal Discharge page Print Language: Dutch Care Plan Goals: see below Health Concerns: rhabdomyolysis (elevated CPK levels) elevated LFTs Plan of Treatment: Liver function elevated likely due to elevated CPK levels recommend outpatient follow up with rheumatology stay hydrated avoid statins for now hold trajenta as this could cause myalgias or muscle soreness call to schedule follow up with PCP follow up with GI as scheduled Assessment: see discharge summary
[2024-12-06] MEDS: Insulin Lispro 100 UNIT/ML 3 ML VIAL SUBCUT (12:40)
--- NOTE | 2024-12-06 12:46 | MHC.CM.PN ---
PT TO DC HOME TODAY WITH RESUMPTION OF [facility] TO TRANSPORT
== END 2024-12-06 15:28 | disposition home health service (06) | DRG 351 ==
LOC: HO.ED 12-03 00:37 → HO.EDOVER 12-03 02:37 → HO.S3 12-03 07:50 → HO.EDOVER 12-03 09:21 → HO.IMC 12-03 15:51
PROVIDERS: Internal Medicine; Nurse Practitioner Acute Care; Physician Assistant; Student in an Organized Health Care Education/Training Program; Admitting Provider Physician Assistant; Emergency Provider Internal Medicine; PCP Internal Medicine; Visit Provider Physician Assistant Medical
DX: M62.82 Rhabdomyolysis (principal); E03.9 Hypothyroidism, unspecified; I25.10 Atherosclerotic heart disease of native coronary artery without angina pectoris; E87.5 Hyperkalemia; I10 Essential (primary) hypertension; E55.9 Vitamin D deficiency, unspecified; Z20.822 Contact with and (suspected) exposure to COVID-19; Z79.82 Long term (current) use of aspirin; Z79.84 Long term (current) use of oral hypoglycemic drugs; Z79.890 Hormone replacement therapy; Z79.899 Other long term (current) drug therapy
CPT/HCPCS: 0241U; 36415; 80053; 81001; 82550; 82947; 84484; 85025; 85652; 86140; 99285; J7120

== ENCOUNTER → 2024-12-03 02:31 | Outpatient (BNV) | payer OTHER, SELFPAY | PROVIDERS: Admitting Provider Physician Assistant; Emergency Provider Internal Medicine; PCP Internal Medicine; Visit Provider Internal Medicine | DX: R79.89 Other specified abnormal findings of blood chemistry (principal); M62.82 Rhabdomyolysis | CPT/HCPCS: 99223; 99232; 99239; 99499 ==

== ENCOUNTER → 2024-12-03 02:31 | Outpatient (BNV) | payer OTHER, SELFPAY | PROVIDERS: Admitting Provider Physician Assistant; Emergency Provider Internal Medicine; PCP Internal Medicine; Visit Provider Internal Medicine | DX: I25.10 Atherosclerotic heart disease of native coronary artery without angina pectoris (principal); M62.82 Rhabdomyolysis; R79.89 Other specified abnormal findings of blood chemistry | CPT/HCPCS: 99223 ==

== ENCOUNTER 2024-12-10 11:03 | Outpatient (AMB) | payer OTHER, SELFPAY ==
[2024-12-10 11:17] VITALS: BP 140/70; PULSE 80; O2SAT 98; BMI 24.9
--- NOTE | 2024-12-10 11:17 | A.OFFPC_ITS ---
Vital Signs 12/10/24 11:17 Height 5 ft 1 in Weight 132 lb BMI 24.9 BP 140/70 H Blood Pressure Location Lt brachial Position Sitting Pulse 80 Pulse Source Pulse Oximeter Pulse Oximetry (%) 98 Oxygen Delivery Method Room Air Intake Visit Reasons: D/C 12/06 [facility] [place] Allergies penicillin V Allergy (Unknown, Verified 12/10/24 11:17) hives Penicillins [PENICILLINS] Allergy (Unknown, Verified 12/10/24 11:17) RASH,DIZZINESS Tobacco use date assessed: 12/02/24 Dental Screening Dental Screen Date: 12/02/24 HPI D/C 12/06 [facility] [place] HPI 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 64-year-old female with a history of hypothyroidism hypertension diabetes mellitus uncontrolled hypercholesterolemia GERD recent STEMI with stent placement coming in for follow-up. Patient was recently admitted again due to elevated CPK. Patient has not started the cholesterol medication and noted to have an elevated liver function test and with the CK and increase in liver function tests patient was advised to go to [facility]. Presently patient is doing fine with still muscle aches. [facility] Medical History (Updated 12/10/24 @ 11:41 by Conor Garcia MD) CAD (coronary artery disease) STEMI (ST elevation myocardial infarction) GERD (gastroesophageal reflux disease) Physical exam, pre-employment Sebaceous cyst RUQ pain Cervical polyp Muscle strain of right scapular region H. pylori infection Overweight (BMI 25.0-29.9) Hypertension Hypothyroidism jail (current) use of insulin Diabetes type 2, uncontrolled Surgical History History of coronary artery stent placement Hx of tubal ligation Hx of cholecystectomy Family History Unknown No problems noted. 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 1. Little interest or pleasure in doing things: not at all 2. Feeling down, depressed, or hopeless: not at all 3. Trouble falling or staying asleep, or sleeping too much: not at all 4. Feeling tired or having little energy: not at all 5. Poor appetite or overeating: not at all 6. Feeling bad about yourself - or that you are a failure or have let yourself or your family down: not at all 7. Trouble concentrating on things, such as reading the newspaper or watching television: not at all 8. Moving or speaking so slowly that other people could have noticed. Or the opposite - being so fidgety or restless that you have been moving around a lot more than usual: not at all 9. Thoughts that you would be better off or of hurting yourself in some way: not at all Total score: 0 Depression Screening Interpretation: Negative Depression Screening Done: Yes 63802 - PHQ-9 Billing: Yes Source: Developed by Drs. Deepak Woodard, Juan R Barth and colleagues, with an educational kimi from [employer]. Thrive Questionnaire Date Thrive assessed: 12/04/24 AUDIT C Alcohol Use Questionnaire (AUDIT-C) 1. How often do you have a drink containing alcohol?: Never 3. How often do you have six or more drinks on one occasion?: Never Total Score: 0 SHAWN-7 AMB Questionnaire SHAWN-7 Date SHAWN - 7 assessed: 12/02/24 Source: Developed by Drs. Deepak Woodard, Juan R Barth and colleagues, with an educational kimi from [employer]. Physical exam (Primary Care) Vital Signs: Last Vital Signs Pulse 80 12/10/24 11:17 BP 140/70 H 12/10/24 11:17 Pulse Ox 98 12/10/24 11:17 Oxygen Delivery Method Room Air 12/10/24 11:17 BMI result Body Mass Index 24.9 Tobacco/Smoking Status: Tobacco use Status Tobacco use date assessed 12/02/24 12/10/24 11:20 Patient Tobacco Use Status Never used Tobacco 12/10/24 11:20 Tobacco use type Cigarette 12/10/24 11:20 e-Cigarette/Vaping Use Never Used 12/10/24 11:20 PHQ-9: PHQ-9 Score PHQ-9: Total score 0 12/10/24 11:38 Depression Screening Interpretation: Negative Thrive Assessment: Date of Thrive Assessment Date Thrive assessed 12/04/24 12/10/24 11:20 Const General: alert; No acute distress Eyes Conjunctivae: conjunctivae normal Resp Auscultation: clear to auscultation bilaterally Cardio Rate: regular rate Rhythm: regular rhythm GI Inspection: Yes normal to inspection Extrem General: Yes normal to inspection and No edema Coding Level of Care Code Est Pt Level 4 (89161) Complex EM visit Add On G2211 Diagnoses Non-traumatic rhabdomyolysis M62.82 Rhabdomyolysis type: non-traumatic Abnormal LFTs R79.89 Type 2 diabetes mellitus with hyperglycemia, with long-term current use of insulin E11.65; Z79.4 Diabetes mellitus fci insulin use: with fci use Hypercholesterolemia E78.00 Acquired hypothyroidism E03.9 Hypothyroidism type: acquired Essential hypertension I10 Hypertension type: essential hypertension Coronary artery disease without angina pectoris, unspecified vessel or lesion type, unspecified whether [place] or transplanted heart I25.10 Associated angina: without angina Coronary Disease-Associated Artery/Lesion type: unspecified vessel or lesion type [place] vs. transplanted heart: unspecified whether [place] or transplanted heart Additional Codes PHQ-9 - 15235 - PHQ-9 Billing: Yes ([id number]) Assessment & Plan Assessment & Plan (1) Rhabdomyolysis: Code(s): M62.82 - Rhabdomyolysis Category: Medical Qualifiers: Rhabdomyolysis type: non-traumatic Qualified Code(s): M62.82 - Rhabdomyolysis Plan: referral done to rheumatology called to try to get a sooner appointment due to increase in CPK with question of a cause (2) Abnormal LFTs: Code(s): R79.89 - Other specified abnormal findings of blood chemistry Category: Medical Plan: Ultrasound of the abdomen requested and will continue to follow-up liver function tests. 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 Decrease the amount of carbohydrate intake, pasta, bread, rice and potatoes are all sugar and that is aside from all the sweet stuff, remember that fruits are good but they are Sweet also. Had a long discussion with the patient on needing changes in diet to get diabetes under better control to decrease her risks of the complications. (4) Hypercholesterolemia: Code(s): E78.00 - Pure hypercholesterolemia, unspecified Category: Medical Plan: Avoid fried foods, chicken skin, eggs, butter margarine, pastries and meat. Be it pork or beef they have a lot of cholesterol LDL goal of less than 100 and 70 and triglyceride of less than 150. Cholesterol medication being held due to elevated liver function test and CPK elevation. (5) Hypothyroidism: Code(s): E03.9 - Hypothyroidism, unspecified Category: Medical Qualifiers: Hypothyroidism type: acquired Qualified Code(s): E03.9 - Hypothyroidism, unspecified Plan: Continue with thyroid medication (6) Hypertension: Code(s): I10 - Essential (primary) hypertension Category: Medical Qualifiers: Hypertension type: essential hypertension Qualified Code(s): I10 - Essential (primary) hypertension Plan: Continue with blood pressure medication. Decrease salt intake and exercise (7) CAD (coronary artery disease): Comment: 10/2024 Code(s): I25.10 - Atherosclerotic heart disease of [place] coronary artery without angina pectoris Category: Medical Qualifiers: Associated angina: without angina Coronary Disease-Associated Artery/Lesion type: unspecified vessel or lesion type [place] vs. transplanted heart: unspecified whether [place] or transplanted heart Qualified Code(s): I25.10 - Atherosclerotic heart disease of [place] coronary artery without angina pectoris Plan: Control the cholesterol, weight, blood pressure, diabetes on aspirin 81 mg once a day and because of the stent on Brilinta Orders: Orders Comprehensive Met. Panel Today I25.10 - Atherosclerotic heart disease of [place] coronary artery without angina pectoris Creatine Kinase Total Today I25.10 - Atherosclerotic heart disease of [place] coronary artery without angina pectoris IRON PROFILE Today I25.10 - Atherosclerotic heart disease of [place] coronary artery without angina pectoris US abdomen complete Today R79.89 - Other specified abnormal findings of blood chemistry Complete Blood Count Auto Diff Today I25.10 - Atherosclerotic heart disease of [place] coronary artery without angina pectoris Ferritin Today I25.10 - Atherosclerotic heart disease of [place] coronary artery without angina pectoris Reticulocyte Count Today I25.10 - Atherosclerotic heart disease of [place] coronary artery without angina pectoris Prothrombin Time INR Today I25.10 - Atherosclerotic heart disease of [place] coronary artery without angina pectoris
== END 2024-12-10 12:04 | disposition home or self-care (01) ==
PROVIDERS: PCP Internal Medicine; Visit Provider Internal Medicine
DX: M62.82 Rhabdomyolysis (principal); R79.89 Other specified abnormal findings of blood chemistry; E11.65 Type 2 diabetes mellitus with hyperglycemia; Z79.4 Long term (current) use of insulin; E78.00 Pure hypercholesterolemia, unspecified; E03.9 Hypothyroidism, unspecified; I10 Essential (primary) hypertension; I25.10 Atherosclerotic heart disease of native coronary artery without angina pectoris

== ENCOUNTER → 2024-12-10 11:03 | Outpatient (BNVA) | payer OTHER, SELFPAY | PROVIDERS: PCP Internal Medicine; Visit Provider Internal Medicine | DX: E03.9 Hypothyroidism, unspecified (principal); I10 Essential (primary) hypertension; E11.9 Type 2 diabetes mellitus without complications; E78.00 Pure hypercholesterolemia, unspecified; K21.9 Gastro-esophageal reflux disease without esophagitis; I25.2 Old myocardial infarction; M62.82 Rhabdomyolysis; E11.65 Type 2 diabetes mellitus with hyperglycemia; I25.10 Atherosclerotic heart disease of native coronary artery without angina pectoris; R79.89 Other specified abnormal findings of blood chemistry; Z79.4 Long term (current) use of insulin | CPT/HCPCS: 96127; 99212 ==

== ENCOUNTER 2024-12-11 11:16 | Outpatient (REF) | payer OTHER, SELFPAY ==
[2024-12-11 12:47] LABS: MANUAL DIFF FLAG NO
[2024-12-11 13:17] LABS: Basophils Percent Auto 0.4 % (0-2); Eosinophils Absolute Auto 0.1 X10*3/uL (0.0-0.4); Eosinophils Percent Auto 1.2 % (0-4); Hematocrit 38.5 % (37.0-47.0); Hemoglobin 12.7 g/dl (12.0-16.0); Imm Gran Abs Auto 0.05 X10*3/uL (0.00-0.03); Imm Gran Pct Auto 0.4 % (0.0-0.4); Lymphocytes Absolute Auto 1.4 X10*3/uL (1.2-4.9); Lymphocytes Percent Auto 12.4 % (20-40); Mean Corpuscular Hemoglobin 26.5 pg (27.0-33.0); Mean Corpuscular Volume 80.2 fL (80.0-98.0); Mean Platelet Volume 9.1 fL (9.4-12.3); Monocytes Absolute Auto 0.7 X10*3/uL (0.1-1.2); Monocytes Percent Auto 5.9 % (2-11); Neutrophils Absolute Auto 8.9 x10*3/uL (2.0-8.3); Neutrophils Percent Auto 79.7 % (45-73); Platelet Count 490 X10*3/uL (160-400); Red Cell Distribution Width 15.5 % (11.0-16.0); White Blood Count 11.2 X10*3/uL (4.8-10.8)
[2024-12-11 13:56] LABS: Alanine Aminotransferase 420 U/L (0-31); Albumin Level 4.3 g/dL (3.5-5.0); Alkaline Phosphatase 62 U/L (39-117); Anion Gap 12 (12-20); Aspartate Amino Transferase 203 U/L (5-31); Bilirubin Total 0.5 mg/dL (0.0-1.0); Blood Urea Nitrogen 11 mg/dL (9-16); C Reactive Protein < 0.10 mg/dL (< or = 0.50); Calcium 9.9 mg/dL (8.4-10.2); Carbon Dioxide 28 mmol/L (22-29); Chloride 106 mmol/L (96-108); Estimated Glomerular Filt Rate > 60; Glucose Random 142 mg/dL (60-115); Potassium 4.8 mmol/L (3.3-5.1); Sodium 141 mmol/L (135-145)
[2024-12-11 14:03] LABS: Erythrocyte Sedimentation Rate 14 MM/HR (0-20)
[2024-12-17 09:28] LABS: Prot Elec - Albumin 4.1 g/dL (3.8-4.8); Prot Elec - Alpha1 0.4 g/dL (0.2-0.3); Prot Elec - Alpha2 0.7 g/dL (0.5-0.9); Prot Elec - Beta 1 0.5 g/dL (0.4-0.6); Prot Elec - Beta 2 0.4 g/dL (0.2-0.5); Prot Elec - Total Protein 7.1 g/dL (6.1-8.1)
[2024-12-21 16:44] LABS: Cytosolic 5'nuc 1A Ab IgG 6 Units; Ej Ab <11 SI (<11); HMGCR Ab IgG 224 CU (<20); Jo-1 Ab <11 SI (<11); MDA5 Ab <11 SI (<11); Mi-2 alpha Ab <11 SI (<11); Mi-2 beta Ab 26 SI (<11); NXP-2 (MJ) Ab <11 SI (<11); Oj Ab <11 SI (<11); Pl-12 Ab <11 SI (<11); Pl-7 Ab <11 SI (<11); SRP Ab <11 SI (<11); TIF1 gamma Ab <11 SI (<11)
== END 2024-12-11 11:17 | disposition home or self-care (01) ==
LOC: HO.LAB 11:16
PROVIDERS: PCP Internal Medicine; Visit Provider Student in an Organized Health Care Education/Training Program
DX: R74.8 Abnormal levels of other serum enzymes (principal)
CPT/HCPCS: 36415; 80053; 82550; 83516; 83520; 84165; 84182; 85025; 85652; 86140; 86235; 99202

== ENCOUNTER 2024-12-11 11:16 | Outpatient (AMB) | payer OTHER, SELFPAY ==
--- NOTE | 2024-12-11 11:29 | A.OFFVIS_ITS ---
Vital Signs 12/11/24 11:35 Height 5 ft 1 in Weight 134 lb 14.766 oz BMI 25.5 BP 144/72 H Blood Pressure Location Lt brachial Position Sitting Pulse 72 Pulse Source Pulse Oximeter Pulse Oximetry (%) 98 Oxygen Delivery Method Room Air Intake Visit Reasons: Rhabdomyolysis Intake Note: Patient presents for Rhabdomyolysis. 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 presents today for evaluation of elevated CK. Patient recently discharged from [facility] (discharge date 11/25/2024) after presenting with chest pain found to have STEMI and had stenting of the LAD. During the hospitalization she was noted to have elevated LFTs and was asked to follow up about this as an outpatient. She followed up with her primary care 12/02/2024. ?Labs were sent and it was noted that she had elevated CK greater than 8000 which on repeat increase to 10,000. Transaminases were elevated as well.? She [place] [facility] [place] with rhabdomyolysis and started on IV fluids.? Despite IV fluids her CK plateaued at around 5000.? She was previously on a statin but this was stopped prior to her 10/2024 hospitalization but this was stopped. Has been having muscle pain/bone pain for about 1 year. Feels that she is very weak and not able to walk or raise her arm above her head. No rashes Fingers do change color in the cold [facility] Medical History (Updated 12/11/24 @ 11:33 by Dinora Sheth MD) Elevated CK CAD (coronary artery disease) STEMI (ST elevation myocardial infarction) GERD (gastroesophageal reflux disease) Physical exam, pre-employment Sebaceous cyst RUQ pain Cervical polyp Muscle strain of right scapular region H. 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 Cognitive needs: No Hearing needs: No Vision needs: No Female Reproductive History Menstrual Age of Menarche: 12 Review of Systems Const Details: Review of Systems Constitutional: Denies fever, chills, weight loss ENT: Denies vision changes, eye pain or eye redness, dental caries, dry mouth GI: Denies nausea, vomiting, diarrhea, abdominal pain, change in BM Pulm: Denies SOB, TORRES, hemoptysis, wheezing Cards: Denies chest pain, palpitations Skin: Denies Raynaud's, rash, nail changes, photosensitivity, CAMP MAINTENANCE SUPERVISOR: Denies headaches, weakness, paresthesias, recurrent falls MSK: as per HPI All other systems reviewed and are unremarkable except noted above Physical Exam Vital Signs: Last Vital Signs Pulse 72 12/11/24 11:35 BP 144/72 H 12/11/24 11:35 Pulse Ox 98 12/11/24 11:35 Oxygen Delivery Method Room Air 12/11/24 11:35 BMI result Body Mass Index 25.5 Vital signs reviewed Physical Examination CONSTITUITIONAL Patient alert and cooperative. Well appearing and in no apparent painful distress HEENT Conjunctiva and sclera clear. ?Pupils equal round and reactive to light. ?No lymphadenopathy. ? CHEST/RESPIRATORY SYSTEM Normal respiratory effort and able to speak in complete sentences. ?Clear to auscultation bilaterally. ?No crackles, rales, rhonchi, wheezes heard. CARDIAC SYSTEM Regular rate and rhythm. ?S1 and S2 heard no murmurs. ?Radial pulses intact bilaterally MSK Hands: ?Good wild life photographer strength bilaterally. No deformities noted. ?No synovitis noted to the MCPs, PIPs or DIPs. ?No tenderness to palpation of these joints. Wrists: ?Full range of motion at the wrists without pain. ?No tenderness to palpation or synovitis noted to the wrists. Elbows: Full range of motion without pain. No tenderness, weakness, swelling, increased warmth or erythema. Shoulders: Full range of motion without pain. No tenderness, weakness, swelling, increased warmth or erythema. Hips: Full range of motion without pain. Hip bursa: No tenderness to palpation Knees: ?Full range of motion. ?No tenderness, swelling, increased warmth or erythema.?No effusion or crepitations Ankles: Full range of motion. ?No tenderness, swelling, increased warmth or erythema.? Feet: ?Negative squeeze test. ?No tenderness to palpation or swelling of the MTPs. Tender points:?No tenderness to palpation of the bilateral trapezius, supraspinatus, greater trochanters, anterior costochondral junctions, bilateral gluteal areas, bilateral suboccipital muscle insertions SKIN Skin intact without rashes. Livedeo reticularis No gottrons sign, holster sign, shawl sign normal capillary nailfolds neck flexion 4 wild life photographer strength 5 5 wrist flexion 5 5 wrist extension 5 5 shoulder abduction 4 4 shoulder adduction 5 5 hip flexion 4 4 knee extension 5 5 knee flexion 5 5 ankle dorsiflexion 5 5 ankle plantarflexion 5 5 Results Reviewed Results Reviewed: Laboratory Tests 10/28/24 12/02/24 12/02/24 11:02 11:13 21:10 WBC RBC Hgb Hct Plt Count ESR Sodium Potassium Chloride Carbon Dioxide BUN Creatinine AST ALT Alkaline Phosphatase Total Creatine Kinase 8144 H 28082 H C-Reactive Protein 0.10 Total Protein TSH 3.93 Free T4 1.36 KENNY Screen POSITIVE A KENNY Titer 1:40 H KENNY Pattern Nuclear, Speckled A Proteinase 3 (PR3) Ab <1.0 Myeloperoxidase Ab <1.0 12/03/24 12/03/24 12/04/24 00:52 04:30 06:53 WBC 9.6 RBC 4.25 Hgb 11.2 L Hct 33.9 L Plt Count 366 ESR 7 Sodium 143 Potassium 4.1 Chloride 102 Carbon Dioxide 34 H BUN 12 Creatinine 0.53 AST 171 H ALT 290 H Alkaline Phosphatase 53 Total Creatine Kinase 7443 H 5568 H C-Reactive Protein Total Protein 6.2 L TSH Free T4 KENNY Screen KENNY Titer KENNY Pattern Proteinase 3 (PR3) Ab Myeloperoxidase Ab 12/05/24 12/06/24 06:06 05:31 WBC RBC Hgb Hct Plt Count ESR Sodium Potassium Chloride Carbon Dioxide BUN Creatinine AST ALT Alkaline Phosphatase Total Creatine Kinase 5916 H 5220 H C-Reactive Protein Total Protein TSH Free T4 KENNY Screen KENNY Titer KENNY Pattern Proteinase 3 (PR3) Ab Myeloperoxidase Ab Assessment & Plan Assessment & Plan (1) Elevated CK: Code(s): R74.8 - Abnormal levels of other serum enzymes Category: Medical Plan: #Elevated CK Patient is a 64-year-old female who presents for evaluation of elevated CK. Differentials for hyperCKemia including infections, medications, metabolic myopathies, mitochondrial myopathies and immune mediated myopathies. Basal the age and history of the patient I am concerned that she has an autoimmune mediated myopathy. We will need to confirm this prior to starting any medications. Plan - CBC, CMP, ESR, CRP, CK, Aldolase, Myositis extended panel - EMG upper limb - MRI right and left thigh - Plan for biopsy depending on what the imaging and blood work show - RTC 1 month Plan I spent 45 minutes reviewing the record and labs, taking a history, examining the patient, discussing the treatment plan and documenting in the medical record Orders: Orders Complete Blood Count Auto Diff Today R74.8 - Abnormal levels of other serum enzymes C Reactive Protein Today R74.8 - Abnormal levels of other serum enzymes NE electromyogram (EMG) Today M60.9 - Myositis, unspecified, R74.8 - Abnormal levels of other serum enzymes Comprehensive Met. Panel Today R74.8 - Abnormal levels of other serum enzymes Creatine Kinase Total Today R74.8 - Abnormal levels of other serum enzymes Erythrocyte Sedimentation Rate Today R74.8 - Abnormal levels of other serum enzymes MSA Panel Extended Today R74.8 - Abnormal levels of other serum enzymes Protein Electrophoresis, Serum Today R74.8 - Abnormal levels of other serum enzymes MR femur LT wo con Today M60.9 - Myositis, unspecified, R74.8 - Abnormal levels of other serum enzymes MR femur RT wo con Today M60.9 - Myositis, unspecified, R74.8 - Abnormal levels of other serum enzymes Coding Level of Care Code New Pt Level 4 (00778) Complex EM visit Add On G2211 Diagnoses Elevated CK R74.8
[2024-12-11 11:35] VITALS: BP 144/72; PULSE 72; O2SAT 98; BMI 25.5
== END 2024-12-11 12:13 | disposition home or self-care (01) ==
PROVIDERS: PCP Internal Medicine; Visit Provider Student in an Organized Health Care Education/Training Program
DX: R74.8 Abnormal levels of other serum enzymes (principal)
CPT/HCPCS: 99204; G2211

== ENCOUNTER 2024-12-17 23:13 | Emergency (ER) | payer OTHER, SELFPAY ==
--- NOTE | ~2024-12-17 | XR_ITS ---
CLINICAL HISTORY: cp 1 view chest x-ray Comparison: CR - XR CHEST 1V - 11/23/24 05:57 EST Findings: No consolidation or effusion. Heart size is normal. No acute fracture. IMPRESSION: 1. No acute findings. This document has been electronically signed by: Jose Perrin MD on 12/18/2024 02:55:32
--- NOTE | 2024-12-17 23:16 | ECG_ITS ---
Test Reason : CP Blood Pressure : */* mmHG Vent. Rate : 73 BPM Atrial Rate : 73 BPM P-R Int : 128 ms QRS Dur : 82 ms QT Int : 364 ms P-R-T Axes : 47 14 94 degrees QTcB Int : 401 ms Normal sinus rhythm T wave abnormality, consider anterior ischemia Abnormal ECG When compared with ECG of 23-Nov-2024 20:26, Vent. rate has decreased by 66 bpm Nonspecific T wave abnormality no longer evident in Inferior leads T wave inversion now evident in Anterior leads Referred By: Generic ED Physician Electronically Signed By: CAROLINA HOYT MD
[2024-12-17 23:35] VITALS: BP 178/58; PULSE 74; RESP 18; TEMP 36.3; O2SAT 99; BMI 22.3
[2024-12-17 23:39] LABS: Basophils Percent Auto 0.4 % (0-2); Eosinophils Absolute Auto 0.2 X10*3/uL (0.0-0.4); Eosinophils Percent Auto 1.6 % (0-4); Hematocrit 37.3 % (37.0-47.0); Hemoglobin 12.3 g/dl (12.0-16.0); Imm Gran Abs Auto 0.02 X10*3/uL (0.00-0.03); Imm Gran Pct Auto 0.2 % (0.0-0.4); Lymphocytes Absolute Auto 2.5 X10*3/uL (1.2-4.9); Lymphocytes Percent Auto 23.1 % (20-40); MANUAL DIFF FLAG NO; Mean Corpuscular Hemoglobin 26.5 pg (27.0-33.0); Mean Corpuscular Volume 80.2 fL (80.0-98.0); Mean Platelet Volume 8.7 fL (9.4-12.3); Monocytes Absolute Auto 0.6 X10*3/uL (0.1-1.2); Monocytes Percent Auto 5.7 % (2-11); Neutrophils Absolute Auto 7.3 x10*3/uL (2.0-8.3); Platelet Count 517 X10*3/uL (160-400); Red Blood Count 4.65 X10*6/uL (4.20-5.50); Red Cell Distribution Width 15.6 % (11.0-16.0); White Blood Count 10.6 X10*3/uL (4.8-10.8)
[2024-12-17 23:51] LABS: Anion Gap 13 (12-20); Blood Urea Nitrogen 15 mg/dL (9-16); Calcium 10.1 mg/dL (8.4-10.2); Carbon Dioxide 26 mmol/L (22-29); Chloride 103 mmol/L (96-108); Creatinine Clr Calc Pharmacy 83.9; Estimated Glomerular Filt Rate > 60; Glucose Random 127 mg/dL (60-115); Potassium 4.2 mmol/L (3.3-5.1); Sodium 138 mmol/L (135-145)
[2024-12-17 23:58] LABS: B Type Natriuretic Peptide 103 pg/mL (<100)
[2024-12-17 23:59] LABS: Troponin-I High Sensitivity 13.1 ng/L (<3.5-17.0)
--- OUTSIDE RECORDS SUMMARY | 2024-12-18 00:17 | XMS_ITS | Encounter Summary ---
Author Organization [employer] Address [address] [place] [address] Care Team Providers Care Statement Distribution Clerk Name Role Phone Unavailable Primary Care Provider Unavailabl e Reason for Visit * Reason Comments Med Refill Encounter Details Date Type Department Care Team (Late st Contact Info) Description 08/12/2024 Refill [facility] [address] [place] [address] Kimberley Cunningham FNP [address] [place] [address] Vitamin D insufficiency Social History Tobacco Use Types Packs/Day Years Used Date Smoking Tobacco: Never Smokeless Tobacco: Never Alcohol Use Standard Drinks/Week Comments Never 0 (1 standard drink = 0.6 oz pur e alcohol) Depression Answer Date Recorded Patient Health Questionnaire-9 Score 2 01/09/2023 Housing Stability Answer Date Recorded What is your housing situation today? I have franco castro 09/10/[address] you li ve. Do you have problems with any of the following? None of the above 09/10/2023 Food Insecurity Answer Date Recorded Within the past 12 months, y ou worried that your food would run out before you got money to buy more: Never True 09/10/2023 Within the past 12 months,th e food you bought just didn't last and you didn't have enough money to get more: Never True Transportation Answer Date Recorded In the past 12 months, has l ack of transportation kept you from medical appts, meetings, work or from getting things needed for daily living? No 09/10/2023 Utilities Answer Date Recorded In the past 12 months, has t he [employer], gas, oil or water company threatened to shut off services in your home? No 09/10/2023 Depression Answer Date Recorded Patient Health Questionnaire-2 Score 0 01/09/2023 Comments Unknown Sex and Gender Information Value Date Recorded Sex Assigned at Female 09/25/2022 10:14 AM EDT Legal Sex Female 10:14 AM EDT Gender Identity Female 09/25/2022 10:14 AM EDT Sexual Orientation Choose not to disclose 2021 10:14 AM EDT documented as of this encounter Plan of Treatment Not on file documented as of this encounter Visit Diagnoses Diagnosis Vitamin D insufficiency documented in this encounter Additional Health Concerns Assessment Noted Time PHQ-9 Depression Total Score: 2 01/09/20 23 9:19 AM EST documented as of this encounter
--- OUTSIDE RECORDS SUMMARY | 2024-12-18 00:17 | XMS_ITS | Encounter Summary ---
Author Organization [employer] Address [address] [place] [address] Care Team Providers Care Golf Ball Cover Treater Name Role Phone Unavailable Primary Care Provider Unavailabl e Reason for Visit * Reason Comments Med Refill Encounter Details Date Type Department Care Team ([facility] st Contact Info) Description 09/10/2024 Refill [facility] [address] [place], [place] [phone] Kimberley Cunningham, EILEEN [address] [place], [place] [phone] Depressive disorder Social History Tobacco Use Types Packs/Day Years [...] the past 12 months, has t he electric, gas, oil or water [employer] threatened to shut off services in your [...] as of this encounter Visit Diagnoses Diagnosis Depressive disorder Depressive disorder, not elsewhere classified documented in this encounter Additional Health Concerns Assessment Noted Time PHQ-9 Depression Total Score: 2 01/09/20 23 9:19 AM EST documented as of this encounter
--- OUTSIDE RECORDS SUMMARY | 2024-12-18 00:17 | XMS_ITS | Encounter Summary ---
Author Organization [employer] Address [address] [facility]t [place] [address] Care Team Providers Care Hand Plate Stacker Name Role Phone Unavailable Primary Care Provider Unavailabl e Reason for Visit * Reason Comments Med Refill Encounter Details Date Type Department Care Team (Late st Contact Info) Description 05/21/2024 Refill [facility] MEDICINE [address] [place] [address] Kimberley Cunningham FNP [address] [place] [address] Primary hypertension Social History Tobacco Use Types Packs/Day Years [...] t he electric, gas, oil or water [employer] threatened to shut off services in your [...] as of this encounter Visit Diagnoses Diagnosis Primary hypertension Unspecified essential hypertension documented in this encounter Additional Health Concerns Assessment Noted Time PHQ-9 Depression Total Score: 2 01/09/20 23 9:19 AM EST documented as of this encounter
--- OUTSIDE RECORDS SUMMARY | 2024-12-18 00:17 | XMS_ITS | Encounter Summary ---
Author Organization [employer] Address [address] [facility] [address] 7[address] [place] [address] Care Team Providers Care Returns Supervisor Name Role Phone Unavailable Primary Care Provider Unavailabl e Reason for Visit * Reason Comments Med Refill Encounter Details Date Type Department Care Team (Late st Contact Info) Description 05/20/2024 Refill [facility] MEDICINE [address] [place] [address] Kimberley Cunningham FNP [address] [place] [address] Primary hypertension Social History Tobacco Use Types [...] t he electric, gas, oil or water [employer] threatened to shut off services in your [...]
--- OUTSIDE RECORDS SUMMARY | 2024-12-18 00:17 | XMS_ITS | Encounter Summary ---
Author Organization [employer] Address [address] [facility] [address] 7[address] [place] [address] Care Team Providers Care Technical Services Analyst Name Role Phone Unavailable Primary Care Provider Unavailabl e Reason for Visit * Reason Comments Med Refill Encounter Details Date Type Department Care Team (Late st Contact Info) Description 06/17/2024 Refill [facility] MEDICINE [address] [place] [address] Kimberley Cunningham FNP [address] [place] [address] Other hyperlipidemia; Type 2 diabetes mellitus with hyperglycemia (CMS/HCC) Social History Tobacco Use Types Packs/Day Years [...] t he electric, gas, oil or water company threatened to [...] as of this encounter Visit Diagnoses Diagnosis Other hyperlipidemia Type 2 diabetes mellitus with hyperglycemia (CMS/HCC) documented in this encounter Additional Health Concerns Assessment Noted Time PHQ-9 Depression Total Score: 2 01/09/20 23 9:19 AM EST documented as of this encounter
--- OUTSIDE RECORDS SUMMARY | 2024-12-18 00:17 | XMS_ITS | Encounter Summary ---
Author Organization [employer] Address [address] [facility] [address] [place] [address] Care Team Providers Care Hat Conditioner Name Role Phone Unavailable Primary Care Provider Unavailabl e Reason for Visit * Reason Comments Med Refill Encounter Details Date Type Department Care Team ([facility] st Contact Info) Description 08/15/2024 Refill [facility] MED & PEDS [address] [place], [place] [phone] Kimberley Cunningham, DEVELOPMENTAL TRAINING COUNSELOR 505 [place] [address] Hypothyroidism, unspecified type Social History Tobacco Use Types Packs/Day Years [...] AM EDT documented as of this encounter Miscellaneous Notes * Telephone Encounter - Jenn Haider RN - 08/20/2024 7:51 AM EDT Pt Left Practice in 2022. No med refills documented in this encounter Plan of Treatment Not on file documented as of this encounter Visit Diagnoses Diagnosis Hypothyroidism, unspecified type documented in this encounter Additional Health Concerns Assessment Noted Time PHQ-9 Depression Total Score: 2 01/09/20 23 9:19 AM EST documented as of this encounter
--- OUTSIDE RECORDS SUMMARY | 2024-12-18 00:17 | XMS_ITS | Encounter Summary ---
Author Organization [employer] Address [address] [facility] 7t [place] [address] Care Team Providers Care Core Sticker Name Role Phone Unavailable Primary Care Provider Unavailabl e Reason for Visit * Reason Comments Med Refill Encounter Details Date Type Department Care Team ([facility] st Contact Info) Description 10/13/2024 Refill [facility] MED & PEDS [address] [place], [place] [phone] Kimberley Cunningham, EILEEN 505 [place] [address] Type 2 diabetes mellitus without complication, with long-term current use of insulin ([facility]) Social History Tobacco Use Types Packs/Day Years [...] as of this encounter Visit Diagnoses Diagnosis Type 2 diabetes mellitus without complication, with long-term current use of insulin ([facility]) documented in this encounter Additional Health Concerns Assessment Noted Time PHQ-9 Depression Total Score: 2 01/09/20 23 9:19 AM EST documented as of this encounter
--- OUTSIDE RECORDS SUMMARY | 2024-12-18 00:17 | XMS_ITS | Encounter Summary ---
Author Organization [employer] Address [address] [facility] [facility] [address] [place] [address] Care Team Providers Care Senior Php Web Developer Name Role Phone Unavailable Primary Care Provider Unavailabl e Reason for Visit * Reason Comments Med Refill Encounter Details Date Type Department Care Team ([facility] st Contact Info) Description 11/13/2024 Refill [facility] MEDICINE 230 [place] [address] Kimberley Cunningham FNP [address] [place] [address] Type 2 diabetes mellitus without complication, with long-term current use of insulin ([facility]) Social History Tobacco Use Types [...] complication, with long-term current use of insulin ([facility]) documented in this encounter Additional Health Concerns Assessment Noted Time PHQ-9 Depression Total Score: 2 01/09/20 23 9:19 AM EST documented as of this encounter
--- OUTSIDE RECORDS SUMMARY | 2024-12-18 00:18 | XMS_ITS | Encounter Summary ---
Author Organization [employer] Address [address] [facility] 7t [place] [address] Care Team Providers Care Consultant Dietitian Name Role Phone Kimberley Cunningham LIFE COACH Primary Care Provider [phone] Reason for Visit * Reason Comments Med Refill Encounter Details Date Type Department Care Team ([facility] st Contact Info) Description 09/08/2023 Refill [facility] MEDICINE 230 [place], [place] [phone] Jojo Washburn MD 230 [place], [place] [phone] Depressive disorder Social History Tobacco Use Types [...] AM EST documented as of this encounter Care Teams Consultant Dietitian Relationship Specialty Start Date End Date Kimberley Cunningham FNP [address] [place] [phone] PCP - General Family Medicine 07/23/22 03/20/24 documented as of this encounter
--- OUTSIDE RECORDS SUMMARY | 2024-12-18 00:18 | XMS_ITS | Encounter Summary ---
Author Organization [employer] Address [address] [facility] [address] 7[address] [place] [address] Care Team Providers Care Installment Account Checker Name Role Phone Kimberley Cunningham COMMERCIAL ENERGY RATER Primary Care Provider [phone] Encounter Details Date Type Department Care Team (Late st Contact Info) Description 10/12/2023 Abstract [facility] MEDICINE 230 [place], [place] [phone] Sandra Villareal Social History Tobacco Use Types Packs/Day Years [...] on file documented as of this encounter Procedures Procedure Name Priority Date/Time Associated Diagnosis Comments COLONOSCOPY Routine 10/22/2017 documented in this encounter Results * Hm Colonoscopy (10/22/2017) Colonoscopy Normal Normal Narrative Swapnil Villarealba - 10/22/2017 Repeat in 10 years us Historical Provider HEALTH MAINTENANCE Final Result documented in this encounter Visit Diagnoses Not on filedocumented in this encounter Additional Health Concerns Assessment Noted Time PHQ-9 Depression Total Score: 2 01/09/20 23 9:19 AM EST documented as of this encounter Care Teams Installment Account Checker Relationship Specialty Start Date End Date Kimberley Cunningham FNP [address] [place] [address] PCP - General Family Medicine 07/23/22 03/20/24 documented as of this encounter
--- OUTSIDE RECORDS SUMMARY | 2024-12-18 00:18 | XMS_ITS | Encounter Summary ---
Author Organization [employer] [facility] Address [address] [facility] 7t [place] [address] Care Team Providers Care Dairy Inspector Name Role Phone Kimberley Cunninghma Primary Care Provider [phone] Encounter Details Date Type Department Care Team (Latest Contact Info) Description 01/20/2021 Abstract [facility] CONVERSIONS Dental, Provider, DDS Social History Tobacco Use Types Packs/Day Years Used Date Smoking Tobacco: Never Assessed Comments Unknown Sex and Gender Information Value Date Recorded Sex Assigned at Female 09/25/2022 10:14 AM EDT Legal Sex Female 10:14 AM EDT Gender Identity Female 09/25/2022 10:14 AM EDT Sexual Orientation Choose not to disclose 2021 10:14 AM EDT documented as of this encounter Plan of Treatment Not on file documented as of this encounter Visit Diagnoses Not on filedocumented in this encounter Care Teams Dairy Inspector Relationship Specialty Start Date End Date Kimberley Cunningham FNP [address] [place] [address] PCP - General Family Medicine 07/23/22 03/20/24 documented as of this encounter
--- OUTSIDE RECORDS SUMMARY | 2024-12-18 00:18 | XMS_ITS | Encounter Summary ---
Author Organization [employer] Address 75 [facility] 7t [place] [address] Care Team Providers Care Spinning Supervisor Name Role Phone Kimberley Cunningham Primary Care Provider [phone] Reason for Visit * Reason Comments Med Refill Encounter Details Date Type Department Care Team ([facility] st Contact Info) Description 07/26/2023 Refill [facility] MEDICINE 230 [place] [address] Kimberley Cunningham FNP [address] [place] [address] Depressive disorder Social History Tobacco Use Types Packs/Day Years Used Date Smoking Tobacco: Never Smokeless Tobacco: Never Alcohol Use Standard Drinks/Week Comments Never 0 (1 standard drink = 0.6 oz pur e alcohol) Depression Answer Date Recorded Patient Health Questionnaire-9 Score 2 01/09/2023 Depression Answer Date Recorded Patient Health Questionnaire-2 [...] documented as of this encounter Care Teams Spinning Supervisor Relationship Specialty Start Date End Date Kimberley Cunningham FNP [address] [place] [address] PCP - General Family Medicine 07/23/22 03/20/24 documented as of this encounter
--- OUTSIDE RECORDS SUMMARY | 2024-12-18 00:18 | XMS_ITS | Encounter Summary ---
Author Organization [employer] [facility] Address [address] [facility] 7t [place] [address] Care Team Providers Care Haz Tech Name Role Phone Kimberley Cunningham Primary Care Provider [phone] Encounter Details Date Type Department Care Team (Latest Contact Info) Description 01/07/2020 Abstract [facility] CONVERSIONS Dental, Provider, DDS Social History Tobacco [...] on filedocumented in this encounter Care Teams Haz Tech Relationship Specialty Start Date End Date Kimberley Cunningham FNP [address] [place] [address] PCP - General Family Medicine 07/23/22 03/20/24 documented as of this encounter
[2024-12-18 00:33] VITALS: BP 169/59; PULSE 63; RESP 14; O2SAT 99
--- NOTE | 2024-12-18 00:59 | ED.CHESTPAIN ---
HPI - Chest Pain General Chief Complaint: Chest Pain Stated Complaint: chest pain tingling feeling comes and goes Time Seen by Provider: 12/18/24 00:57 History of Present Illness HPI narrative: patient is a 64-year-old female with a history of coronary artery disease. Status post stent placement at [facility] on November 09. Presented today with having chest pain. Patient claims the chest pain is over the left chest goes to the shoulder lasts about 1-2 seconds there is no shortness of breath there is no diaphoresis. There is no fever no chills no coughing or congestion. Patient is from home. She is wearing a life vest. the incident happened at approximately 17:00. Related Data Home Medications ?Medication ?Instructions ?Recorded ?Confirmed blood glucose control high and low #1 ea 09/07/20 11/20/24 solution (FreeStyle Control solution) lancets 33 gauge (TRUEplus Lancets) #100 ea 11/29/23 11/20/24 aspirin 81 mg tablet,delayed 81 mg PO DAILY 11/20/24 12/03/24 release (Adult Low Dose Aspirin) dapagliflozin propanediol 10 mg 10 mg PO DAILY 11/23/24 12/03/24 tablet (Farxiga) losartan 25 mg tablet 25 mg PO DAILY 12/02/24 12/03/24 levothyroxine 150 mcg tablet 150 mcg PO DAILY@0600 12/03/24 12/03/24 melatonin 5 mg capsule 5 mg PO BEDTIME 12/03/24 12/03/24 Previous Rx's ?Medication ?Instructions ?Recorded pen needle, diabetic 32 gauge x #100 ea 11/02/20 (BD Corin 2nd Gen Pen Needle) pen needle, diabetic 32 gauge x #100 ea 04/18/2232 (BD Ultra-Fine Corin Pen Needle) lancets 28 gauge (FreeStyle #100 ea 11/29/23 Lancets) pen needle, diabetic 32 gauge x #100 ea 06/17/24 (BD Ultra-Fine Corin Pen Needle) cholecalciferol (vitamin D3) 50 50 mcg PO DAILY #90 caps 08/26/24 mcg (2,000 unit) capsule fluoxetine 10 mg capsule 10 mg PO DAILY #90 caps 10/03/24 metformin 1,000 mg tablet 1,000 mg PO BID #180 tabs 10/21/24 blood pessure cuff #1 ea 11/28/24 blood sugar diagnostic (FreeStyle #100 ea 11/28/24 Lite Strips) blood-glucose meter (FreeStyle #1 ea 11/28/24 Lite Meter kit) metoprolol succinate 50 mg 50 mg PO DAILY #90 tabs 12/02/24 tablet,extended release 24 hr ticagrelor 90 mg tablet (Brilinta) 90 mg PO BID #60 tabs 12/12/24 ferrous sulfate 325 mg (65 mg 325 mg PO BID #60 tabs 12/15/24 iron) tablet Allergies Allergy/AdvReac Type Severity Reaction Status Date / Time penicillin V Allergy Unknown hives Verified 12/17/24 23:36 Penicillins [PENICILLINS] Allergy Unknown RASH,DIZZIN Verified 12/17/24 23:36 ESS Review of Systems Review of Systems: Positive chest pain Yes all other systems are reviewed and are negative [facility] Past Medical History Attestation statement: The following information was validated with the patient. Medical History Elevated CK CAD (coronary artery disease) STEMI (ST elevation myocardial infarction) GERD (gastroesophageal reflux disease) Physical exam, pre-employment Sebaceous cyst RUQ pain Cervical polyp Muscle strain of right scapular region H. pylori infection Overweight (BMI 25.0-29.9) Hypertension Hypothyroidism intermediate card tender (current) use of insulin Diabetes type 2, uncontrolled Surgical History History of coronary artery stent placement Hx of tubal ligation Hx of cholecystectomy Family History Family History Unknown No problems noted. Father Diabetes Heart disease Mother Diabetes Hypertension Heart disease Brother Lung cancer Sister Heart disease Social History Social History Household Members: Family Housing: House Are you a primary care companion to a significant other at home: No Do you presently have visiting nurse or other home services: Yes Alcohol intake: never Patient Tobacco Use Status: Never used Tobacco Tobacco use type: Cigarette e-Cigarette/Vaping Use: Never Used Second Hand Smoke Exposure: No Advance Directives: No Advance Directives Information Provided: Yes Do you have a plan to hurt others: No Plan service: No Current occupational status: employed and disabled 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 Oriented X3. No acute distress. Eyes: Pupils equal, round and reactive to light. ENT: Pharynx normal. Neck: Normal inspection. Neck supple. No lymph nodes noted. No crepitus CVS: Normal heart rate and rhythm. Pulses normal. Normal S1 and S2 Respiratory: No respiratory distress. Breath sounds normal. No Wheezing. No rales Abdomen: Soft and nontender. No rigidity. No distention. good BS x4 Skin: Skin warm and dry. Normal skin color. Normal skin turgor. Extremities: No lower extremity edema. Neurovascular intact to all extremities. No Lacerations. No Rash Neuro: Oriented X 3. No motor deficit. No sensory deficit. Moving all extermities. No slurred speech Medical Decision Making Medical Decision Making [facility] Narrative: My interpretation of patient's EKG showed a sinus pattern heart rate was approximately 70 OR QRS QTC was normal there is significant ST segment changes biphasic T-waves in lead V2 and V3. This is different than previous EKG. Patient's chest pain however is T atypical. Cardiac enzymes 1st set was 13. Patient's case discussed with cardiology as patient has proven coronary disease. Dr. Leong requested for a 2nd EKG 3 hours from the initial. If they are negative patient can be discharged home. Still the CPK is pending as patient had a previous episode of rhabdo. LFTs are pending. Differential Diagnosis Differential Diagnoses: The differential diagnosis associated with the presentation includes ACS, pneumonia, pneumothorax, PE Admission/Observation Consideration of admission/observation: Escalation of care including admission/observation considered Consult Healthcare Provider Management of the patient was discussed with: Logistics Project Manager ( cardiology) Lab Data [facility] Lab Attestation statement: I reviewed the patient's lab results. 12/17/24 23:34 12/17/24 23:33 Labs: Lab Results 12/17/24 12/17/24 Range/Units 23:33 23:34 WBC 10.6 (4.8-10.8) X10*3/uL RBC 4.65 (4.20-5.50) X10*6/uL Hgb 12.3 (12.0-16.0) g/dl Hct 37.3 (37.0-47.0) % MCV 80.2 (80.0-98.0) fL MCH 26.5 L (27.0-33.0) pg MCHC 33.0 (31.0-35.0) g/dl RDW 15.6 (11.0-16.0) % Plt Count 517 H (160-400) X10*3/uL MPV 8.7 L (9.4-12.3) fL Immature Gran % (Auto) 0.2 (0.0-0.4) % Neut % (Auto) 69.0 (45-73) % Lymph % (Auto) 23.1 (20-40) % [place] % (Auto) 5.7 (2-11) % Eos % (Auto) 1.6 (0-4) % Baso % (Auto) 0.4 (0-2) % Lymph # (Auto) 2.5 (1.2-4.9) X10*3/uL [place] # (Auto) 0.6 (0.1-1.2) X10*3/uL Eos # (Auto) 0.2 (0.0-0.4) X10*3/uL Baso # (Auto) 0.0 (0.0-0.2) X10*3/uL Abs Immat Gran (auto) 0.02 (0.00-0.03) X10*3/uL Absolute Neuts (auto) 7.3 (2.0-8.3) x10*3/uL Absolute Nucleated RBC 0.000 (0.0-0.012) X10*3/uL Nucleated RBC % (auto) 0.0 (0.0-0.2) /100WBC Sodium 138 (135-145) mmol/L Potassium 4.2 (3.3-5.1) mmol/L Chloride 103 (96-108) mmol/L Carbon Dioxide 26 (22-29) mmol/L Anion Gap 13 (12-20) BUN 15 (9-16) mg/dL Creatinine 0.60 (0.5-1.4) mg/dL Estim Creat Clear Calc 83.9 Estimated GFR > 60 Random Glucose 127 H (60-115) mg/dL Calcium 10.1 (8.4-10.2) mg/dL Total Bilirubin 0.3 (0.0-1.0) mg/dL Direct Bilirubin 0.1 (0.0-0.5) mg/dL AST 144 H (5-31) U/L ALT 313 H (0-31) U/L Troponin I High Sens 13.1 (<3.5-17.0) ng/L B-Natriuretic Peptide 103 H (<100) pg/mL Total Protein 7.9 (6.5-8.0) g/dL Albumin 4.3 (3.5-5.0) g/dL Lipase 111 H (8-78) U/L Independent Interpretation I performed an independent interpretation of an: EKG ( my interpretation patient's EKG showed a sinus rhythm heart rate is approximately 70 OR QRS QTC normal there is significant ST changes in V2 and V3.) External Record Review External record reviewed: Inpatient record Previous cardiology record was reviewed Chronic Conditions history of proven coronary artery disease status post stent Discharge Plan Discharge Clinical Impression: Chest pain Patient Disposition: Still a Patient Prescriptions: No Action (DME) pen needle, diabetic [BD Corin 2nd Gen Pen Needle] 32 gauge x 5/32 needle See Rx Instructions .MEDSUPPLY Qty: 100 4RF Rx Instructions: once a day (DME) pen needle, diabetic [BD Ultra-Fine Corin Pen Needle] 32 gauge x 5/32 needle See Rx Instructions .Route Qty: 100 1RF Rx Instructions: As directed cholecalciferol (vitamin D3) 50 mcg (2,000 unit) capsule 50 mcg PO DAILY Qty: 90 3RF fluoxetine 10 mg capsule 10 mg PO DAILY Qty: 90 1RF metformin 1,000 mg tablet 1,000 mg PO BID Qty: 180 1RF (DME) FreeStyle Lite Strips Strip See Rx Instructions .ROUTE .MEDSUPPLY Qty: 100 5RF Rx Instructions: 3 times a day (DME) blood-glucose meter [FreeStyle Lite Meter] Kit See Rx Instructions .Route Qty: 1 0RF Rx Instructions: As directed TID (DME) blood pessure cuff See Rx Instructions .Route .MEDSUPPLY Qty: 1 0RF Rx Instructions: As directed Brilinta 90 mg tablet 90 mg PO BID Qty: 60 11RF ferrous sulfate 325 mg (65 mg iron) Tablet 325 mg PO BID Qty: 60 6RF levothyroxine 150 mcg tablet 150 mcg PO DAILY@0600 melatonin 5 mg capsule 5 mg PO BEDTIME dapagliflozin propanediol [Farxiga] 10 mg tablet 10 mg PO DAILY (DME) lancets [TRUEplus Lancets] 33 gauge misc See Rx Instructions .ROUTE TID Qty: 100 Rx Instructions: As directed check BS TID (DME) lancets [FreeStyle Lancets] 28 gauge misc See Rx Instructions .ROUTE .MEDSUPPLY Qty: 100 11RF Rx Instructions: As directed three times a day (DME) FreeStyle Control Solution See Rx Instructions .ROUTE .MEDSUPPLY Qty: 1 Rx Instructions: As directed (DME) pen needle, diabetic [BD Ultra-Fine Corin Pen Needle] 32 gauge x 5/32 needle See Rx Instructions .ROUTE .MEDSUPPLY Qty: 100 3RF Rx Instructions: As directed once daily aspirin [Adult Low Dose Aspirin] 81 mg tablet,delayed release (DR/EC) 81 mg PO DAILY losartan 25 mg tablet 25 mg PO DAILY metoprolol succinate 50 mg tablet extended release 24 hr 50 mg PO DAILY Qty: 90 3RF Print Language: Wallisian
[2024-12-18 01:17] LABS: Alanine Aminotransferase 313 U/L (0-31); Albumin Level 4.3 g/dL (3.5-5.0); Aspartate Amino Transferase 144 U/L (5-31); Bilirubin Direct 0.1 mg/dL (0.0-0.5); Bilirubin Total 0.3 mg/dL (0.0-1.0); Lipase 111 U/L (8-78); Total Protein 7.9 g/dL (6.5-8.0)
[2024-12-18 01:32] LABS: Alkaline Phosphatase 59 U/L (39-117)
[2024-12-18 02:59] LABS: Troponin-I High Sensitivity 17.2 ng/L (<3.5-17.0)
[2024-12-18 04:45] VITALS: BP 144/71; PULSE 73; RESP 16; TEMP 36.7; O2SAT 98
[2024-12-18 04:49] VITALS: BP 144/71; PULSE 73; RESP 16; TEMP 36.7; O2SAT 98
== END 2024-12-18 05:05 | disposition home or self-care (01) ==
PROVIDERS: Emergency Medicine Emergency Medical Services; Emergency Provider Emergency Medicine; PCP Internal Medicine
DX: R07.9 Chest pain, unspecified (principal); E11.9 Type 2 diabetes mellitus without complications; I10 Essential (primary) hypertension; Z79.899 Other long term (current) drug therapy; Z79.4 Long term (current) use of insulin
CPT/HCPCS: 36415; 71045; 80048; 80076; 82550; 83690; 83880; 84484; 85025; 93005; 99284

== ENCOUNTER → 2024-12-17 23:16 | Outpatient (BNV) | payer OTHER, SELFPAY | PROVIDERS: Emergency Provider Emergency Medicine; PCP Internal Medicine; Visit Provider Internal Medicine Cardiovascular Disease | DX: R07.9 Chest pain, unspecified (principal) | CPT/HCPCS: 93010 ==

== ENCOUNTER → 2024-12-18 01:39 | Outpatient (BNV) | payer OTHER, SELFPAY | PROVIDERS: Emergency Provider Emergency Medicine; PCP Internal Medicine; Visit Provider Radiology Diagnostic Radiology | DX: R07.9 Chest pain, unspecified (principal) | CPT/HCPCS: 71045 ==

== ENCOUNTER 2024-12-22 09:22 | Outpatient (AMB) | payer OTHER, SELFPAY ==
[2024-12-22 09:33] VITALS: BMI 23.2
--- NOTE | 2024-12-22 09:33 | A.OFFVIS_ITS ---
VS Expanded 12/22/24 09:33 Height 5 ft 4 in Weight 134 lb 14.766 oz BMI 23.2 Intake Visit Reasons: Type 2 diabetes mellitus with hyperglycemia Allergies penicillin V Allergy (Unknown, Verified 12/17/24 23:36) hives Penicillins [PENICILLINS] Allergy (Unknown, Verified 12/17/24 23:36) RASH,DIZZINESS Nutrition Presentation Details: Pt presents for MNT for T2DM Pt reports typical meal B: coffee wit cereal (oatmeal /wheat cream ) 10 am : cheerios with 1% 2pm fruit 5:30 mashed potato with chicken and salad snack : peanut butter crackers,water Pt asks for meal ideas when eating out fish: 2 x/wk fruits: 1/d veg 2/wk Reports on DM meds : farxiga 10 mg/d, metformin 1000 mg 2x/d BG download not avail, Pt report today's FBG at 137 mg/dl BS Monitoring Most Recent Diabetes Results: Creatinine 0.60 mg/dL (0.5-1.4) 12/17/24 Blood Urea Nitrogen 15 mg/dL (9-16) 12/17/24 Sodium 138 mmol/L (135-145) 12/17/24 Potassium 4.2 mmol/L (3.3-5.1) 12/17/24 Chloride 103 mmol/L (96-108) 12/17/24 Carbon Dioxide 26 mmol/L (22-29) 12/17/24 Calcium 10.1 mg/dL (8.4-10.2) 12/17/24 AST 144 U/L (5-31) H 12/17/24 ALT 313 U/L (0-31) H 12/17/24 Total Protein 7.9 g/dL (6.5-8.0) 12/17/24 Albumin 4.3 g/dL (3.5-5.0) 12/17/24 [id number] Equation Height: 5 ft 4 in Weight: 135 lb Resting Metabolic Rate: 1161.70 Calculated Activity Level: Sedentary Calories Needed to Maintain Weight: 1394.04 Diagnosis Nutrition problem #1: altered nutrition labs As related to (etiology) #1: diagnosis As evidenced by (sign/symptom) #1: abnormal lab values Monitoring/Goals Nutrition problem monitoring: HgbA1c Nutrition goal/outcome: HgbA1c <7% in 3 months and list 3 high fiber foods Learning/Education Readiness to learn: good PFSH Medical History Elevated CK CAD (coronary artery disease) STEMI (ST elevation myocardial infarction) GERD (gastroesophageal reflux disease) Physical exam, pre-employment Sebaceous cyst RUQ pain Cervical polyp Muscle strain of right scapular region H. pylori infection Overweight (BMI 25.0-29.9) Hypertension Hypothyroidism residential (current) use of insulin Diabetes type 2, uncontrolled Surgical History History of coronary artery stent placement Hx of tubal ligation Hx of cholecystectomy Family History Unknown No problems noted. Father Diabetes Heart disease Mother Diabetes Hypertension Heart disease Brother Lung cancer Sister Heart disease Social History Household Members: Family Housing: House Are you a primary restorative care technician to a significant other at home: No Do you presently have visiting nurse or other home services: Yes Alcohol intake: never Patient Tobacco Use Status: Never used Tobacco Tobacco use type: Cigarette e-Cigarette/Vaping Use: Never Used Second Hand Smoke Exposure: No service: No Current occupational status: employed and disabled Current occupation: [employer] Cognitive needs: No Hearing needs: No Vision needs: No Female Reproductive History Menstrual Age of Menarche: 12 Assessment & Plan Assessment & Plan (1) Diabetes: Code(s): E11.9 - Type 2 diabetes mellitus without complications Category: Medical Plan: Wt: 61 Kg ( 12/20 ) Est kcal needs as per MSJ: 1400 (40% carb, 30% protein/fat) Est fluid needs as per 25-30 ml/d: 1800 Est prot per day as per 1 g/kg bw: 61 Recommend fiber intake : 8-10 g per day and gradually increase to 25-28 g per day for women and 35-38 g for men or as tolerated Recommend sodium intake per day : less than 2300 mg Educated patient on: ( R = reviewed V = verbalizes understanding N/R = needs review N/A = not applicable * Food sources of carbohydrate, adequate serving sizes and its role in various health conditions: R V N/R * Differences between complex carbohydrates a simple carbohydrates, role of fiber in diet: R * Lean protein sources of foods: R V NR * Differences between types of fats and role in diet (mono on saturated fat fatty acids, saturated fatty acids, trans fats): R basic * Food sources of sodium in salt and healthy modifications for heart health in kidney health: R V R/V * Vitamins and minerals: R V N/R * Healthy plate method concept: R V N/R * Physical activity: Benefits a precaution: R V N/R * Hypoglycemia protocol (rule of 15): R V N/R * Dietary prevention of Hyperglycemia: R Patient Instructions: Work on choosing whole grain , high fiber foods and monitor total carb to 45 - 60 g at meal following healthy plate method Choose grilled foods (not breaded when eating out) and limit fried foods (escoja comidas a la parilla/horno , no empanadas, y reduzca en las frituras Reduzca el total de carbohidrtos a menos de 45 -60 g en comidas escogiendo comidas altas en fibra, integras (granos, semillas, legumbres, ) see list of meal ideas - shawn lista de ideas de comidas Coding Level of Care Code Nutr Indiv Subseq (44964) Diagnoses Diabetes E11.9 Time Spent (min) 30
--- OUTSIDE RECORDS SUMMARY | 2024-12-22 13:44 | XMS_ITS | Encounter Summary ---
Author Organization [employer] Address [address] [facility] 7t [place] [address] Care Team Providers Care Money Examiner Name Role Phone Unavailable Primary Care Provider Unavailabl e Reason for Visit * Reason Comments Med Refill Encounter Details Date Type Department Care Team ([facility] st Contact Info) Description 10/13/2024 Refill [facility] [address] [place], [place] [phone] Kimberley Cunningham, EILEEN [address] [place] [address] Type 2 diabetes mellitus without complication, with long-term current use of insulin ([facility]) Social History Tobacco Use Types Packs/Day Years [...] complication, with long-term current use of insulin ([facility]) documented in this encounter Additional Health Concerns Assessment Noted Time PHQ-9 Depression Total Score: 2 01/09/20 23 9:19 AM EST documented as of this encounter
--- OUTSIDE RECORDS SUMMARY | 2024-12-22 13:44 | XMS_ITS | Clinical Summary ---
Author Organization [employer] Address [address] [facility] [address] [place] [address] Care Team Providers Care Work Station Support Specialist Name Role Phone Unavailable Primary Care Provider Unavailabl e Allergies Active Allergy Reactions Criticality Noted Date Comments Penicillins 11/08/2022 Medications ibuprofen 400 MG tabletIndications: Upper back pain Take 1 tablet (400 mg) by mouth every 6 (six) hours if needed for moderate pain or fever for up to 30 doses. 30 tablet 11/08/20 22 Active Ascorbic Acid (vitamin C) 500 MG tablet TAKE 1 TABLET BY MOUTH TWICE DAILY AT NOON AND IN THE EVENING 11/09/20 22 Active capsaicin (Zostrix) 0.025 % cream APPLY TOPICALLY TO AFFECTED AREA(S) OF RIGHT SHOULDER THREE TIMES DAILY NEEDED FOR PAIN 09/25/20 22 Active cyclobenzaprine (Flexeril) 10 MG tablet TAKE 1 TABLET BY MOUTH THREE TIMES DAILY NEEDED FOR 7 DAYS 01/11/20 22 Active FeroSul 325 (65 Fe) MG tablet TAKE 1 TABLET BY MOUTH TWICE DAILY AT NOON AND IN THE EVENING 12/07/19 23 Active Lidoderm 5 % patch APPLY 1-2 PATCHES TO AFFECTED AREA(S) DAILY. LEAVE ON FOR 12 HOURS THEN REMOVE FOR 12 HOURS. 07/26/20 22 Active pantoprazole (ProtoNix) 40 MG EC tablet TAKE 1 TABLET BY MOUTH TWICE DAILY IN THE MORNING AND IN THE EVENING 12/06/19 23 Active Pentips 32G X 4 MM misc USE DIRECTED ONCE DAILY 100 each 04/10/20 23 Active TRUEplus Lancets 33G misc TEST BLOOD SUGAR THREE TIMES DAILY 100 each 04/20/20 23 Active cholecalciferol (D3 Super Strength) 50 MCG (1999 UT) capsuleIndications :Vitamin D insufficiency TAKE 1 CAPSULE BY MOUTH EVERYDAY AT NOON 90 capsule 3 08/27/20 23 Active Lantus SoloStar 100 UNIT/ML penIndications:Typ e 2 diabetes mellitus treated with insulin ([facility]) INJECT 8 UNITS SUBCUTANEOUSLY ONCE DAILY IN THE EVENING 15 mL 3 11/01/20 23 Active linaGLIPtin (Tradjenta) 5 MG tabletIndications: Type 2 diabetes mellitus without complication, with long-term current use of insulin ([facility]) TAKE 1 TABLET BY MOUTH EVERYDAY AT NOON 90 tablet 3 11/30/19 24 Active repaglinide (Prandin) 0.5 MG tabletIndications: Type 2 diabetes mellitus with hyperglycemia (CMS/HCC) TAKE 1 TABLET BY MOUTH EVERY MORNING 90 tablet 1 12/27/19 24 Active atorvastatin (Lipitor) 20 MG tabletIndications: Other hyperlipidemia TAKE 1 TABLET BY MOUTH EVERYDAY AT NOON 90 tablet 1 12/27/19 24 Active dapagliflozin (Farxiga) 10 MGIndications:Type 2 diabetes mellitus with hyperglycemia ([facility]) TAKE 1 TABLET BY MOUTH EVERYDAY AT NOON 90 tablet 3 01/17/20 24 Active FLUoxetine (PROzac) 10 MG capsuleIndications :Depressive disorder TAKE 1 CAPSULE BY MOUTH EVERYDAY AT NOON 90 capsule 1 03/20/20 24 Active Levoxyl 137 MCG tabletIndications: Hypothyroidism, unspecified type TAKE 1 TABLET BY MOUTH EVERY MORNING 90 tablet 03/20/20 24 Active metFORMIN (Glucophage) 1000 MG tabletIndications: Type 2 diabetes mellitus without complication, with long-term current use of insulin ([facility]) TAKE 1 TABLET BY MOUTH TWICE DAILY AT NOON AND IN THE EVENING 180 tablet 1 03/20/20 24 Active lisinopril 20 MG tabletIndications: Primary hypertension TAKE 1 TABLET BY MOUTH AT BEDTIME 90 tablet 2 05/22/20 24 Active FREESTYLE LITE test stripIndications:T ype 2 diabetes mellitus with hyperglycemia ([facility]/HCC) TEST BLOOD SUGAR 3 TIMES A DAY 100 strip 6 06/11/20 24 Active Active Problems Problem Noted Date Diagnosed Date Cervical radiculopathy 12/25/2022 Chronic right shoulder pain 12/25/2022 Routine health maintenance 12/25/2022 Overview (12/25/2022): -Last PE on 01/09/22 Sickle cell trait 04/10/2022 Multiple nodules of lung 03/16/2020 Jaw pain 04/28/2019 Hypertension 07/31/2013 Overview (12/25/2022): -BP goal < 130/80 mmHg -Monitor BP at home and call office if elevated > 130/80mmHg more than 2 times -Low salt diet encouraged -150 mins of exercise weekly encouraged -ED precautions reviewed Assessment & Plan (01/15/2023 8:36 PM EST): -Tolerating decreased dose of lisinopril better, and BP values still primarily within goal -Continue lisinopril 20mg daily Assessment & Plan (12/25/2022 8:32 PM EST): -DECREASE lisinopril to 20mg daily, reviewed med safety and SE -Follow up in 2 weeks (Tele OK) to discuss home BP readings and hematuria, sooner PRN. Iron deficiency anemia 07/31/2013 Anxiety 06/06/2012 Asthma 06/06/2012 Depressive disorder 06/06/2012 Diabetes mellitus type 2, uncomplicated 06/06/20 12 Overview (12/25/2022): -POC A1c 7.8% 09/25/22 -Pt in the process of [facility]ishing [place] [facility] -Per last available consult note: -CONT repaglinide 0.5 mg prior to the largest meal of the day. -CONT metformin 1000 mg twice a day -CONT Farxiga 10 mg daily -CONT Tradjenta 5 mg -CONT Lantus 8 units daily -Lifestyle interventions reviewed Assessment & Plan (12/25/2022 8:33 PM EST): Lab Results Component Value Date HGBA1C 8.1 (A) 12/25/2022 -Continue current regimen, pt planning to incorporate more lifestyle interventions such as walking when warmer to improve A1c closer to goal Gastroesophageal reflux disease 06/06/2012 Hypothyroidism 06/06/2012 Encounters Date Type Department Care Team Description 11/13/2024 Refill [facility] MED[facility]INE [address] [place] [address] Phalen, Kimberley, MANAGEMENT ASSOCIATE Type 2 diabetes mellitus without complication, with long-term current use of insulin ([facility]) 10/13/2024 Refill [facility] MED & PEDS [address] [place] [address] Kimberley Cunningham, EILEEN Type 2 diabetes mellitus without complication, with long-term current use of insulin ([facility]) from Last 3 Months Immunizations Name Administration Dates Next Due Hep B, adult 03/29/2007,11/12/2001,05/31/2001 Pneumococcal Polysaccharide PPSV23 11/03/2003 Pneumococcal, Unspecified 11/03/2003 TD (adult), 2 Lf tetanus tox oid, preservative free, adsorbed 07/29/2004 Tdap 09/10/2017 Family History Medical History Relation Name Comments Diabetes Brother Coronary artery disease Father Diabetes Father Diabetes Mother Hypertension Mother Relation Name Status Comments Brother Father Mother Social History Tobacco Use Types Packs/Day Years Used Date Smoking Tobacco: Never Smokeless Tobacco: Never Tobacco Cessation:Counseling Given: Not Answered Alcohol Use Standard Drinks/Week Comments Never 0 [...] not to disclose 2021 10:14 AM EDT Last Filed Vital Signs Vital Sign Reading Time Taken Comments Blood Pressure 160/78 11/07/2023 9:21 AM EST Pulse 82 12/25/2022 3:14 PM EST Temperature 36.8 ??C (98.2 ??F) 12/25/2022 3:14 PM ES T Respiratory Rate 18 12/25/2022 3:14 PM EST Oxygen Saturation 99% 12/25/2022 3:14 PM EST Inhaled Oxygen Concentration - - Weight 69.2 kg (152 lb 9.6 oz) 12/25/2022 3:14 P M EST Height 157.5 cm (5' 2 ) 12/25/2022 3:14 PM EST Body Mass Index 27.91 12/25/2022 3:14 PM EST Plan of Treatment Health Maintenance Due Date Last Done Comments CT Colonography 1962 Dental Oral Exam 1962 Dental Prophylaxis 1962 Dental X-Ray: Bitewings 1962 Dental X-Ray: Full Mouth 1962 FIT DNA/Cologuard 1962 FIT 1962 FOBT 1962 HIV Screening 1962 Sigmoidoscopy 1962 Diabetes: Foot Exam 1972 Alcohol/Substance Use Screening 1974 Hepatitis C Screening 1980 Pneumococcal Vaccine: Pediatrics (0 to 5 Years) and At-Risk Patients (6 to 64 Years) (2 of 2 - PCV) 11/03/2004 11/03/2003, 11/03/2003 Zoster Vaccines (1 of 2) 2012 Diabetes: Urine Protein Screening 07/13/2022 07/13/2021, 01/14/2021, 09/23/2020 RSV Patients and Patients Aged 60 years or older (1 - Risk 60-74 years 1-dose series) 2022 Lipid Panel 10/04/2023 10/04/2022, 09/23/2020 Depression Screening 01/09/2024 01/09/2023, 01/09/20 23 SDOH Screening 01/09/2024 01/09/2023 Cervical Cancer Screening 03/14/2024 HPV/Cotest 03/14/2024 03/14/2019 Pap Smear 03/14/2024 03/14/2019 Diabetes: Hemoglobin A1C 05/01/2024 032 024, 12/25/2022, 07/13/2021, Additional history exists COVID-19 Vaccine ( season) 2024 06/21/2021, 05/24/2021 Influenza Vaccine (#1) 2024 Mammogram 10/05/2024 10/05/2022, 04/0 03/2021, 09/26/2019, Additional history exists Eye Exam 01/18/2025 01/18/2024, 12/28, 01/18/2024, Additional history exists Tobacco Screening 01/18/2025 01/18/2024 DTaP/Tdap/Td Vaccines (2 - Td or Tdap) 09/10/2027 09/10/2017, 07/29/2004 Colonoscopy 10/22/2027 10/22/2017 Colorectal Cancer Screening 10/22/2027 Hepatitis B Vaccines Completed 03/29/2007, 11/12/2001, 05/31/2001 HIB Vaccines Aged Out No longer eligi ble based on patient's age to complete this topic HPV Vaccines Aged Out No longer eligi ble based on patient's age to complete this topic Hepatitis A Vaccines Aged Out No long er eligible based on patient's age to complete this topic IPV Vaccines Aged Out No longer eligi ble based on patient's age to complete this topic Meningococcal Vaccine Aged Out No carmella victor manuel eligible based on patient's age to complete this topic RSV under 20 months Aged Out No longe r eligible based on patient's age to complete this topic Rotavirus Vaccines Aged Out No longer eligible based on patient's age to complete this topic Procedures Procedure Name Priority Date/Time Associated Diagnosis Comments POCT GLYCATED HEMOGLOBIN, TOTAL Routine 01/30/2024 1:44 PM EST Type 2 diabetes mellitus without complication, with long-term current use of insulin ([facility]) MAMMOGRAM GENERIC Routine 10/05/2022 10: 20 AM EST LIPID PANEL, STANDARD Routine 10/04/2022 8:50 AM EST ROXANN CRUZ MICROALBUMIN, RANDOM Routine 07/13/2021 10:40 AM EDT PAP/HPV Routine 03/14/2019 COLONOSCOPY Routine 10/22/2017 from Last 3 Months or Most Recently Relevant to Health Maintenance Results * (ABNORMAL) POCT HGB A1C (01/30/2024 1:44 PM EST) Hemoglobin A1C 7.9(A) 4.0 - 6.0 % Blood 01/30/2024 1:44 PM EST Kanwal Doll MD POINT OF CARE TEST ENTER/ED IT ORDERABLES Final Result * Mammography Report 1 (10/05/2022 10:20 AM EST) Anatomical Region Laterality Modality Breast Bilateral Mammography 10/05/2022 10:2 0 AM EST Narrative 10/06/2022 1:31 PM EST Refer to the Notes tab for result details [facility] Procedure: Mammography Report 1 Procedure Note ProviderBev MD - 02/18/2023 Refer to the Notes tab for result details [facility] Procedure: Mammography Report 1 us Kimberley Cunningham MANAGEMENT ASSOCIATE IMG BI PROCEDURES Final Result * LIPID PANEL, STANDARD (10/04/2022 8:50 AM EST) Chol/HDLC Ratio 2.7 <5.0 (calc) [facility] Cholesterol, Total 137 <200 mg/dL [facility] HDL Cholesterol 50 > OR = 50 mg/dL [facility] LDL Cholesterol 70 mg/dL (calc) [facility] Comment: Reference range: <100 ?? Desirable range <100 mg/dL for primary prevention; ?? <70 mg/dL for patients with CHD or diabetic patients ?? with > or = 2 CHD risk factors. ?? LDL-C is now calculated using the Jesús-Oliver ?? calculation, which is a validated novel method providing ?? better accuracy than the Friedewald equation in the ?? estimation of LDL-C. ?? Jesús ROBERTS et al. KORTNEY. 2013;310(19): 7286-5456 ?? (http://education.[employer]/faq/BZF736) Non-HDL Cholesterol 87 <130 mg/dL (calc) [facility] Comment: For patients with diabetes plus 1 major ASCVD risk ?? factor, treating to a non-HDL-C goal of <100 mg/dL ?? (LDL-C of <70 mg/dL) is considered a therapeutic ?? option. Triglycerides 91 <150 mg/dL CONVE RT[facility] 10/04/2022 8:50 AM EST Kimberley Cunningham MANAGEMENT ASSOCIATE LAB BLOOD ORDERABLES Final Res ult [facility] * MICROALBUMIN, RANDOM (07/13/2021 10:40 AM EDT) Creatinine Urine 30.03 mg/dL [facility] Microalbum/Creati nine Ratio Ur TNP ug/mg cr [facility] Comment: Unable to calculate albumin/creatinine ratio due to low microalbumin or creatinine result. Microalbumin Urine <5.0 mg/L [facility] 07/13/2021 10:4 0 AM EDT Historical Provider HISTORICAL/NON ORDERABLE LABS Final Result [facility] [address] * Pap Smear (03/14/2019) Pap Negative for intraephithelial lesion or malignancy Negative for intraephithelial lesion or malignancy, Other HPV Not Detected Undetected, Indeterminate, Quantitative, Not Detected Historical Provider HEALTH MAINTENANCE Final Result * Hm Colonoscopy (10/22/2017) Colonoscopy Normal Normal Narrative Sandra Villareal - 10/22/2017 Repeat in 10 years Historical Provider HEALTH MAINTENANCE Final Result from Last 3 Months or Most Recently Relevant to Health Maintenance Insurance [facility] MEDICAID STAND ADULT
--- OUTSIDE RECORDS SUMMARY | 2024-12-22 13:44 | XMS_ITS | Encounter Summary ---
Author Organization [employer] Address [address] [facility] [address] [place] [address] Care Team Providers Care Atmospheric Technician Name Role Phone Unavailable Primary Care Provider Unavailabl e Reason for Visit * Reason Comments Med Refill Encounter Details Date Type Department Care Team ([facility] st Contact Info) Description 09/10/[address] [facility] MED & PEDS [address] [place], [place] [phone] Kimberley Cunningham, EILEEN [address] [place], [place] [phone] Depressive disorder Social History Tobacco Use Types [...] t he electric, gas, oil or water [employer] threatened to shut off services in your [...]
--- OUTSIDE RECORDS SUMMARY | 2024-12-22 13:44 | XMS_ITS | Encounter Summary ---
Author Organization [employer] Address [address] [facility] [address] [place] [address] Care Team Providers Care Django Developer Name Role Phone Unavailable Primary Care Provider Unavailabl e Reason for Visit * Reason Comments Med Refill Encounter Details Date Type Department Care Team ([facility] st Contact Info) Description 08/15/2024 Refill [facility] & PEDS [address] [place], [place] [phone] Kimberley Cunningham, BIOLOGICAL SCIENCES INSTRUCTOR [address] [place] [address] Hypothyroidism, unspecified type Social History Tobacco Use [...]
--- OUTSIDE RECORDS SUMMARY | 2024-12-22 13:44 | XMS_ITS | Encounter Summary ---
Author Organization [employer] [facility] Address [address] [facility] [address]t [place] [address] Care Team Providers Care Journeyman Wireman Name Role Phone Kimberley Cunningham Primary Care Provider [phone] Encounter Details Date Type Department Care Team (Latest Contact Info) Description 01/07/2020 Abstract [facility] CONVERSIONS Dental, Provider, DDS Social History [...] on filedocumented in this encounter Care Teams Journeyman Wireman Relationship Specialty Start Date End Date Kimberley Cunningham FNP [address] [place] [address] PCP - General Family Medicine 07/23/22 03/20/24 documented as of this encounter
--- OUTSIDE RECORDS SUMMARY | 2024-12-22 13:44 | XMS_ITS | Encounter Summary ---
Author Organization [employer] Address [address] [facility] [address] [place] [address] Care Team Providers Care Manager Program Name Role Phone Unavailable Primary Care Provider Unavailabl e Reason for Visit * Reason Comments Med Refill Encounter Details Date Type Department Care Team (Late st Contact Info) Description 06/17/2024 Refill [facility] MEDICINE [address] [place] [address] Kimberley Cunningham FNP [address] [place] [address] Other hyperlipidemia; Type 2 diabetes mellitus with hyperglycemia (CMS/HCC) Social History Tobacco Use Types Packs/Day Years Used Date Smoking Tobacco: Never Smokeless Tobacco: Never Alcohol Use Standard Drinks/Week Comments Never 0 (1 standard drink = 0.6 oz pur e alcohol) Depression Answer Date Recorded Patient Health Questionnaire-9 Score 2 01/09/2023 Housing Stability Answer Date Recorded What is your housing situation today? I have frnaco castro 09/10/[address] you [...]
--- OUTSIDE RECORDS SUMMARY | 2024-12-22 13:44 | XMS_ITS | Encounter Summary ---
Author Organization [employer] Address [address] [facility] [address] [place] [address] Care Team Providers Care Trailer Body Assembler Name Role Phone Kimberley Cunningham Primary Care Provider [phone] Reason for Visit * Reason Comments Med Refill Encounter Details Date Type Department Care Team ([facility] st Contact Info) Description 07/26/2023 Refill [facility] [address] [place] [address] Kimberley Cunningham FNP [address] [place] [address] Depressive disorder Social History Tobacco Use Types [...] documented as of this encounter Care Teams Trailer Body Assembler Relationship Specialty Start Date End Date Kimberley Cunningham FNP [address] [place] [address] PCP - General Family Medicine 07/23/22 03/20/24 documented as of this encounter
--- OUTSIDE RECORDS SUMMARY | 2024-12-22 13:44 | XMS_ITS | Encounter Summary ---
Author Organization [employer] Address [address] [facility] [address] [place] [address] Care Team Providers Care Welder Fitter Arc Name Role Phone Unavailable Primary Care Provider Unavailabl e Reason for Visit * Reason Comments Med Refill Encounter Details Date Type Department Care Team (Late st Contact Info) Description 08/12/2024 Refill [facility] MED[facility]INE [address] [place] [address] Kimberley Cunningham FNP [address] [place] [address] Vitamin D insufficiency Social History Tobacco Use [...] the past 12 months, has t he [employer], gas, oil or water company threatened to [...]
--- OUTSIDE RECORDS SUMMARY | 2024-12-22 13:44 | XMS_ITS | Encounter Summary ---
Author Organization [employer] Address [address] [facility] [address] 7t [place] [address] Care Team Providers Care Small Animal Caretaker Name Role Phone Unavailable Primary Care Provider Unavailabl e Reason for Visit * Reason Comments Med Refill Encounter Details Date Type Department Care Team ([facility] [place] st Contact Info) Description 11/13/2024 Refill [facility] MEDICINE [address] [place] [address] Kimberley Cunningham FNP [address] [place] [address] Type 2 diabetes mellitus without complication, with long-term current use of insulin ([facility]) Social History Tobacco Use Types [...] complication, with long-term current use of insulin ([facility]) documented in this encounter Additional Health Concerns Assessment Noted Time PHQ-9 Depression Total Score: 2 01/09/20 23 9:19 AM EST documented as of this encounter
--- OUTSIDE RECORDS SUMMARY | 2024-12-22 13:44 | XMS_ITS | Encounter Summary ---
Author Organization [employer] Address [address] [facility] 7t [place] [address] Care Team Providers Care Scorekeeper Name Role Phone Kimberley Cunningham BUSINESS INTELLIGENCE CONSULTANT Primary Care Provider [phone] Encounter Details Date Type Department Care Team (Late st Contact Info) Description 10/12/2023 Abstract [facility] MEDICINE 230 [place], [place] [phone] Sandra Villareal Social History Tobacco Use Types [...] documented as of this encounter Care Teams Scorekeeper Relationship Specialty Start Date End Date Kimberley Cunningham FNP [address] [place] [id number] PCP - General Family Medicine 07/23/22 03/20/24 documented as of this encounter
--- OUTSIDE RECORDS SUMMARY | 2024-12-22 13:44 | XMS_ITS | Encounter Summary ---
Author Organization [employer] [facility] Address [address] [facility] 7t [place] [address] Care Team Providers Care Senior Qa Engineer Name Role Phone Kimberley Cunningham Primary Care Provider [phone] Encounter Details Date Type Department Care Team (Latest Contact Info) Description 01/20/2021 Abstract [facility] CONVERSIONS Dental, Provider, DDS Social History Tobacco [...] on filedocumented in this encounter Care Teams Senior Qa Engineer Relationship Specialty Start Date End Date Kimberley Cunningham FNP 230 [place] [address] PCP - General Family Medicine 07/23/22 03/20/24 documented as of this encounter
--- OUTSIDE RECORDS SUMMARY | 2024-12-22 13:44 | XMS_ITS | Encounter Summary ---
Author Organization [employer] Address [address] [facility] 7t [place] [address] Care Team Providers Care Parts Analyst Name Role Phone Kimberley Cunningham POLO COACH Primary Care Provider [phone] Reason for Visit * Reason Comments Med Refill Encounter Details Date Type Department Care Team ([facility] st Contact Info) Description 09/08/2023 Refill [facility] MEDICINE 230 [place], [place] [phone] Jojo Washburn MD 230 [place], [place] [phone] Depressive disorder Social History Tobacco Use Types [...] documented as of this encounter Care Teams Parts Analyst Relationship Specialty Start Date End Date Kimberley Cunningham FNP [address] [place] [phone] PCP - General Family Medicine 07/23/22 03/20/24 documented as of this encounter
--- OUTSIDE RECORDS SUMMARY | 2024-12-22 13:44 | XMS_ITS | Encounter Summary ---
Author Organization [employer] Address [address] [facility] [address] 7t [place] [address] Care Team Providers Care Telephone Assembler Name Role Phone Unavailable Primary Care Provider Unavailabl e Reason for Visit * Reason Comments Med Refill Encounter Details Date Type Department Care Team (Late st Contact Info) Description 05/20/2024 Refill [facility] MEDICINE 230 [place] [address] Kimberley Cunningham FNP [address] [place] [address] Primary hypertension Social History Tobacco Use Types [...] t he electric, gas, oil or water [employer] threatened to shut off services in your [...]
--- OUTSIDE RECORDS SUMMARY | 2024-12-22 13:44 | XMS_ITS | Encounter Summary ---
Author Organization [employer] Address [address] [facility] [address]t [place] [address] Care Team Providers Care Mangle Operator Garments Name Role Phone Unavailable Primary Care Provider Unavailabl e Reason for Visit * Reason Comments Med Refill Encounter Details Date Type Department Care Team (Late st Contact Info) Description 05/21/2024 Refill [facility] MEDICINE 230 [place] [address] Kimberley Cunningham FNP [address] [place] [address] Primary hypertension Social History Tobacco Use Types [...] t he electric, gas, oil or water [employer] threatened to shut off services in your [...]
[2024-12-23 09:18] VITALS: BMI 23.2
== END 2024-12-22 10:14 | disposition home or self-care (01) ==
PROVIDERS: PCP Internal Medicine; Visit Provider Dietitian, Registered
DX: E11.9 Type 2 diabetes mellitus without complications (principal)

== ENCOUNTER → 2024-12-22 09:22 | Outpatient (BNVA) | payer OTHER, SELFPAY | PROVIDERS: PCP Internal Medicine; Visit Provider Dietitian, Registered | DX: E11.65 Type 2 diabetes mellitus with hyperglycemia (principal); Z71.3 Dietary counseling and surveillance | CPT/HCPCS: 97803 ==

== ENCOUNTER 2025-01-03 12:41 | Outpatient (REF) | payer OTHER, SELFPAY | END 2025-01-03 12:42 | disposition home or self-care (01) | LOC: HO.MRI 12:41 | PROVIDERS: PCP Internal Medicine; Visit Provider Student in an Organized Health Care Education/Training Program | DX: R74.8 Abnormal levels of other serum enzymes (principal); M60.9 Myositis, unspecified | CPT/HCPCS: 73718 ==

== ENCOUNTER → 2025-01-03 12:51 | Outpatient (BNV) | payer OTHER, SELFPAY | PROVIDERS: PCP Internal Medicine; Visit Provider Radiology Diagnostic Radiology | DX: R74.8 Abnormal levels of other serum enzymes (principal) | CPT/HCPCS: 73718 ==

== ENCOUNTER 2025-01-07 09:18 | Outpatient (REF) | payer OTHER, SELFPAY ==
--- NOTE | ~2025-01-07 | US_ITS ---
EXAMINATION: US ABDOMEN LIMITED WITH LIVER ELASTOGRAPHY HISTORY: K75.81 - Nonalcoholic steatohepatitis (BRIDGES) TECHNIQUE: Real-time grayscale ultrasound imaging of the right upper quadrant was performed and images were reviewed. COMPARISON: Comparison is made with the prior examination dated 09/13/2023. FINDINGS: Liver: The right lobe of the liver measures 15.9 cm in size. The left lobe of the liver measures 9.1 cm in size. The liver demonstrates normal homogeneous echotexture. Again seen is calcification in the right lobe. No focal mass or intrahepatic biliary ductal dilatation is identified. There is normal hepatopedal flow in the portal vein. Ultrasound elastography of the liver was performed with 10 separate measurements of the liver parenchyma with the patient in the supine position. Measurements were obtained approximately 2 cm below Isaac's capsule and perpendicular to the capsule. Images are of satisfactory quality. The median shear wave velocity is 1.13 m/s. The interquartile range/median (IQR/median) is 0.09. Gallbladder and biliary tree: The gallbladder is surgically absent. The common bile duct is normal in caliber measuring 7 mm. Right Kidney: The right kidney measures 10.7 cm in length. The right kidney is unremarkable, without evidence of masses, hydronephrosis, or calculi. Pancreas: The pancreatic head, neck, and body are unremarkable. The pancreatic tail is obscured by bowel gas. Abdominal aorta and inferior vena cava: The visualized portions of the abdominal aorta and inferior vena cava are normal in caliber. There is no free fluid in the right upper quadrant. US/US abdomen montano w elastography IMPRESSION: Unremarkable right upper quadrant ultrasound. The median shear wave velocity is 1.13 m/s, corresponding to a median liver stiffness of 3.82 kPa. The IQR/median value is 0.09. This is indicative of a quality data set. Findings are indicative of a normal elastography value with a low likelihood of severe fibrosis or cirrhosis. REFERENCE: Society of Radiologists in Ultrasound Liver Stiffness Thresholds (2019): LIVER STIFFNESS THRESHOLDS: *Shear wave velocity less than 1.3 m/s (Liver Stiffness equal or less than 5 kPa): High probability of being normal. *Shear wave velocity less than 1.7 m/s (Liver Stiffness less than 9 kPa): In the absence of other known clinical signs, rules out compensated advanced chronic liver disease. *Shear wave velocity between 1.7-2.1 m/s (Liver Stiffness 9-13 kPa): Suggestive of compensated advanced chronic liver disease but need further test for confirmation. *Shear wave velocity between 2.1-2.4 m/s (Liver Stiffness 13-17 kPa): Rules in compensated advanced chronic liver disease. *Shear wave velocity greater than 2.4 m/s (Liver Stiffness over 17 kPa): Suggestive of clinically significant portal hypertension. QUALITY OF DATA SET: *IQR/Median value equal or less than 0.15 implies a quality data set. *IQR/Median value over 0.15 implies a poor quality data set. SIGNIFICANT CHANGE FROM PRIOR EXAM: Significant change if liver stiffness measurement is 10% or greater from prior exam. OTHER CONSIDERATIONS: The stage of liver fibrosis may be overestimated in the setting of acute hepatitis, liver inflammation, elevated liver function tests, hepatic vascular congestion, obstructive cholestasis, non-fasting state, and infiltrative diseases such as amyloidosis and lymphoma. In some patients with NAFLD, the liver stiffness thresholds for compensated advanced chronic liver disease may be lower. In causes other than viral hepatitis and NAFLD, liver stiffness thresholds are not well established. Electronically signed by: Deepak Byers MD 01/07/2025 10:31 AM [facility]
--- OUTSIDE RECORDS SUMMARY | 2025-01-07 10:20 | XMS_ITS | Encounter Summary ---
Author Organization [employer] Address [address] [facility] [address] 7t [place] [address] Care Team Providers Care Morgue Keeper Name Role Phone Unavailable Primary Care Provider Unavailabl e Reason for Visit * Reason Comments Med Refill Encounter Details Date Type Department Care Team (Late st Contact Info) Description 05/21/2024 Refill [facility] MEDICINE 230 [place] [address] Kimberley Cunningham FNP [address] [place] [address] Primary hypertension Social History Tobacco Use Types [...] t he electric, gas, oil or water [employer] threatened to shut off services in your [...]
--- OUTSIDE RECORDS SUMMARY | 2025-01-07 10:20 | XMS_ITS | Encounter Summary ---
Author Organization [employer] Address [address] [facility] 7t [place] [address] Care Team Providers Care Migratory Worker Name Role Phone Unavailable Primary Care Provider Unavailabl e Reason for Visit * Reason Comments Med Refill Encounter Details Date Type Department Care Team ([facility] st Contact Info) Description 10/13/2024 Refill [facility] MED & PEDS 505 [place], [place] [phone] Kimberley Cunningham, EILEEN 505 [place] [address] Type 2 diabetes mellitus without complication, with long-term current use of insulin ([facility]) Social History Tobacco Use Types Packs/Day Years [...] complication, with long-term current use of insulin ([facility]) documented in this encounter Additional Health Concerns Assessment Noted Time PHQ-9 Depression Total Score: 2 01/09/20 23 9:19 AM EST documented as of this encounter
--- OUTSIDE RECORDS SUMMARY | 2025-01-07 10:20 | XMS_ITS | Encounter Summary ---
Author Organization [employer] Address [address] [facility] [address] 7t [place] [address] Care Team Providers Care Biomass Power Plant Superintendent Name Role Phone Unavailable Primary Care Provider Unavailabl e Reason for Visit * Reason Comments Med Refill Encounter Details Date Type Department Care Team (Late st Contact Info) Description 05/20/2024 Refill [facility] MEDICINE 230 [place] [address] Kimberley Cunningham FNP [address] [place] [address] Primary hypertension Social History Tobacco Use Types [...] t he electric, gas, oil or water [employer] threatened to shut off services in your [...]
--- OUTSIDE RECORDS SUMMARY | 2025-01-07 10:20 | XMS_ITS | Encounter Summary ---
Author Organization [facility] Address [address] [facility] 7t [place] [address] Care Team Providers Care Commissions Specialist Name Role Phone Kimberley Cunningham Primary Care Provider [phone] Encounter Details Date Type Department Care Team (Latest Contact Info) Description 01/20/2021 Abstract [facility] CONVERSIONS Dental, Provider, DDS Social History [...] on filedocumented in this encounter Care Teams Commissions Specialist Relationship Specialty Start Date End Date Kimberley Cunningham FNP 230 [place] [address] PCP - General Family Medicine 07/23/22 03/20/24 documented as of this encounter
--- OUTSIDE RECORDS SUMMARY | 2025-01-07 10:20 | XMS_ITS | Encounter Summary ---
Author Organization [employer] Address [address] [facility] 7t [place] [address] Care Team Providers Care Skid Wrapper Name Role Phone Kimberley Cunningham Primary Care Provider [phone] Reason for Visit * Reason Comments Med Refill Encounter Details Date Type Department Care Team ([facility] st Contact Info) Description 07/26/2023 Refill [facility] MEDICINE 230 [place] [address] Kimberley Cunningham FNP 505 [place] [address] Depressive disorder Social History Tobacco Use Types [...] documented as of this encounter Care Teams Skid Wrapper Relationship Specialty Start Date End Date Kimberley Cunningham FNP 230 [place] [address] PCP - General Family Medicine 07/23/22 03/20/24 documented as of this encounter
--- OUTSIDE RECORDS SUMMARY | 2025-01-07 10:20 | XMS_ITS | Encounter Summary ---
Author Organization [employer] Address [address] [facility] [address] 7t [place] [address] Care Team Providers Care Hyperbaric Technician Name Role Phone Unavailable Primary Care Provider Unavailabl e Reason for Visit * Reason Comments Med Refill Encounter Details Date Type Department Care Team ([facility] st Contact Info) Description 11/13/2024 Refill [facility] MEDICINE 230 [place] [address] Kimberley Cunningham FNP [address] [place] [address] Type 2 diabetes mellitus without complication, with long-term current use of insulin ([facility]) Social History Tobacco Use Types [...] complication, with long-term current use of insulin ([facility]) documented in this encounter Additional Health Concerns Assessment Noted Time PHQ-9 Depression Total Score: 2 01/09/20 23 9:19 AM EST documented as of this encounter
--- OUTSIDE RECORDS SUMMARY | 2025-01-07 10:20 | XMS_ITS | Encounter Summary ---
Author Organization [employer] Address 75 [facility] 7t [place] [address] Care Team Providers Care Network Relations Consultant Name Role Phone Kimberley Cunningham GOLD BURNISHER Primary Care Provider [phone] Reason for Visit * Reason Comments Med Refill Encounter Details Date Type Department Care Team ([facility] st Contact Info) Description 09/08/2023 Refill [facility] MEDICINE 230 [place], [place] [phone] Jojo Washburn MD 230 [place], [place] [phone] Depressive disorder Social History Tobacco Use Types [...] documented as of this encounter Care Teams Network Relations Consultant Relationship Specialty Start Date End Date Kimberley Cunningham FNP [address] [place] [address] PCP - General Family Medicine 07/23/22 03/20/24 documented as of this encounter
--- OUTSIDE RECORDS SUMMARY | 2025-01-07 10:20 | XMS_ITS | Encounter Summary ---
Author Organization [employer] Address [address] [facility] [address] 7t [place] [address] Care Team Providers Care Insurance Customer Service Specialist Name Role Phone Unavailable Primary Care Provider Unavailabl e Reason for Visit * Reason Comments Med Refill Encounter Details Date Type Department Care Team (Late st Contact Info) Description 08/12/2024 Refill [facility] MEDICINE 230 [place] [address] Kimberley Cunningham FNP [address] [place] [address] Vitamin D insufficiency Social History Tobacco Use [...] the past 12 months, has t he [employer], gas, oil or water company threatened to [...]
--- OUTSIDE RECORDS SUMMARY | 2025-01-07 10:20 | XMS_ITS | Encounter Summary ---
Author Organization [employer] Address [address] [facility] [address] 7t [place] [address] Care Team Providers Care Superintendent Construction Name Role Phone Unavailable Primary Care Provider Unavailabl e Reason for Visit * Reason Comments Med Refill Encounter Details Date Type Department Care Team ([facility] st Contact Info) Description 09/10/2024 Refill [facility]ED[facility] 505 [place], [place] [phone] Kimberley Cunningham, EILEEN 505 [place], [place] [phone] Depressive disorder Social History Tobacco Use Types [...] t he electric, gas, oil or water [employer] threatened to shut off services in your [...]
--- OUTSIDE RECORDS SUMMARY | 2025-01-07 10:20 | XMS_ITS | Encounter Summary ---
Author Organization [employer] Address [address] [facility] [facility] [address] 7t [place] [address] Care Team Providers Care Arranger Assembler Name Role Phone Unavailable Primary Care Provider Unavailabl e Reason for Visit * Reason Comments Med Refill Encounter Details Date Type Department Care Team ([facility] st Contact Info) Description 08/15/2024 Refill [facility] MED [facility] PEDS 505 [place], [place] [phone] Kimberley Cunningham, MASTER SHEET CLERK 505 [place] [address] Hypothyroidism, unspecified type Social History Tobacco Use [...]
--- OUTSIDE RECORDS SUMMARY | 2025-01-07 10:20 | XMS_ITS | Clinical Summary ---
Author Organization [email or web address] Address [address] [facility] 7t [place] [address] Care Team Providers Care Electronics Processing Supervisor Name Role Phone Unavailable Primary Care [...] e 2 diabetes mellitus treated with insulin ([facility]) INJECT 8 UNITS SUBCUTANEOUSLY ONCE DAILY IN THE EVENING 15 mL 3 11/01/20 23 Active linaGLIPtin (Tradjenta) 5 MG tabletIndications: Type 2 diabetes mellitus without complication, with long-term current use of insulin ([facility]) TAKE 1 TABLET BY MOUTH EVERYDAY AT [...] 10 MGIndications:Type 2 diabetes mellitus with hyperglycemia ([facility]) TAKE 1 TABLET BY MOUTH EVERYDAY AT [...] complication, with long-term current use of insulin ([facility]) TAKE 1 TABLET BY MOUTH TWICE DAILY AT NOON AND IN THE EVENING 180 tablet 1 03/20/20 24 Active lisinopril 20 MG tabletIndications: Primary hypertension TAKE 1 TABLET BY MOUTH AT BEDTIME 90 tablet 2 05/22/20 24 Active FREESTYLE LITE test stripIndications:T ype 2 diabetes mellitus with hyperglycemia ([facility]) TEST BLOOD SUGAR 3 TIMES A DAY [...] -Pt in the process of re-establishing with [facility] Endo -Per last available consult note: -CONT [...] Type Department Care Team Description 11/13/2024 Refill [facility] MEDICINE 230 [place] [address] Phalen, Kimberley, BOAT DOCK OPERATOR Type 2 diabetes mellitus without complication, with long-term current use of insulin ([facility]) 10/13/2024 Refill [facility] & PEDS [address] [place] [address] Kimberley Cunningham, EILEEN Type 2 diabetes mellitus without complication, with long-term current use of insulin ([facility]) from Last 3 Months Immunizations Name Administration [...] 1974 Hepatitis C Screening 1980 Pneumococcal Vaccine: 50+ Years (2 of 2 - PCV) 11/03/2004 11/03/2003, 11/03/2003 Pneumococcal Vaccine: Pediatrics (0 to 5 Years) and At-Risk Patients (6 to 49) Years) (2 of 2 - PCV) 11/03/2004 11/03/2003, 11/03/2003 Zoster Vaccines (1 of 2) 2012 Diabetes: Urine Protein Screening 07/13/2022 07/13/2021, 01/14/2021, 09/23/2020 RSV Patients and Patients Aged 60 years or older (1 - Risk 60-74 years 1-dose series) 2022 Lipid Panel 10/04/2023 10/04/2022, 09/23/2020 Depression Screening 01/09/2024 01/09/2023, 01/09/20 SDOH Screening 01/09/2024 01/09/2023 Cervical Cancer Screening 03/14/2024 HPV/Cotest 03/14/2024 03/14/2019 Pap Smear 03/14/2024 03/14/2019 Diabetes: Hemoglobin A1C 05/01/2024 024, 12/25/2022, 07/13/2021, Additional history exists COVID-19 Vaccine ( season) 2024 06/21/2021, 05/24/2021 Influenza Vaccine (#1) 2024 Mammogram 10/05/2024 10/05/2022, 04/0 03/2021, 09/26/2019, Additional history exists Eye Exam 01/18/2025 01/18/2024, 022 01/2024, 01/18/2024, Additional history exists Tobacco Screening 01/18/2025 [...] complication, with long-term current use of insulin ([facility]) MAMMOGRAM GENERIC Routine 10/05/2022 10: 20 AM EST LIPID PANEL, STANDARD Routine 10/04/2022 8:50 AM EST ZZZ HISTORICAL MICROALBUMIN, RANDOM Routine 07/13/2021 10:40 AM EDT [...] result details Legacy Procedure: Mammography Report 1 Kimberley Cunningham BOAT DOCK OPERATOR IMG BI PROCEDURES Final Result * LIPID [...] ?? LDL-C is now calculated using the Laila ?? calculation, which is a validated novel method providing ?? better accuracy than the Friedewald equation in the ?? estimation of LDL-C. ?? Jesús ROBERTS et al. KORTNEY. 2013;310(19): 4738-0820 ?? (http://education.[employer]/faq/ESE318) Non-HDL Cholesterol 87 <130 mg/dL (calc) [facility] Comment: For patients with diabetes plus 1 major ASCVD risk ?? factor, treating to a non-HDL-C goal of <100 mg/dL ?? (LDL-C of <70 mg/dL) is considered a therapeutic ?? option. Triglycerides 91 <150 mg/dL [facility] 10/04/2022 8:50 AM EST Kimberley Cunningham BOAT DOCK OPERATOR LAB BLOOD ORDERABLES Final Res ult [facility] * MICROALBUMIN, RANDOM (07/13/2021 10:40 AM EDT) Creatinine Urine 30.03 mg/dL [facility] Microalbum/Creati nine Ratio Ur TNP ug/mg cr [facility] Comment: Unable to calculate albumin/creatinine ratio due to low microalbumin or creatinine result. Microalbumin Urine <5.0 mg/L [facility] 07/13/2021 10:4 0 AM EDT Historical Provider MD HISTORICAL/NON ORDERABLE LABS Final Result Performing Organization Address City/[facility]/ZIP Co de Phone Number [facility] [address] * Hm Pap Smear (03/14/2019) Pap Negative for intraephithelial lesion or malignancy Negative for intraephithelial lesion or malignancy, Other HPV Not Detected Undetected, Indeterminate, Quantitative, Not Detected us Historical Provider HEALTH MAINTENANCE Final Result * Hm Colonoscopy (10/22/2017) Colonoscopy Normal Normal Sandra Lawson - 10/22/2017 Repeat in 10 years Historical Provider HEALTH MAINTENANCE Final Result from Last 3 Months or Most Recently Relevant to Health Maintenance Insurance [facility] MED[facility] STAND ADULT
--- OUTSIDE RECORDS SUMMARY | 2025-01-07 10:20 | XMS_ITS | Encounter Summary ---
Author Organization [employer] Address [address] [facility] [address] 7t [place] [address] Care Team Providers Care Buncher Operator Name Role Phone Kimberley Cunningham MACHINE OPERATOR TRANSPLANTER Primary Care Provider [phone] Encounter Details Date Type Department Care Team (Late st Contact Info) Description 10/12/2023 Abstract [facility] MEDICINE 230 [place], [place] [phone] Sandra Villareal Social History Tobacco Use Types [...] documented as of this encounter Care Teams Buncher Operator Relationship Specialty Start Date End Date Kimberley Cunningham FNP [address] [place] [id number] PCP - General Family Medicine 07/23/22 03/20/24 documented as of this encounter
--- OUTSIDE RECORDS SUMMARY | 2025-01-07 10:20 | XMS_ITS | Encounter Summary ---
Author Organization [facility] Address [address] [facility] 7t [place] [address] Care Team Providers Care Conductor/Brakeman Name Role Phone Kimberley Cunningham Primary Care Provider [phone] Encounter Details Date Type Department Care Team (Latest Contact Info) Description 01/07/2020 Abstract [facility] CONVERSIONS Dental, Provider, DDS Social History [...] on filedocumented in this encounter Care Teams Conductor/Brakeman Relationship Specialty Start Date End Date Kimberley Cunningham FNP [address] [place] [address] PCP - General Family Medicine 07/23/22 03/20/24 documented as of this encounter
--- OUTSIDE RECORDS SUMMARY | 2025-01-07 10:20 | XMS_ITS | Encounter Summary ---
Author Organization [employer] Address [address] [facility] [address]t [place] [address] Care Team Providers Care Statistics Teacher Name Role Phone Unavailable Primary Care Provider Unavailabl e Reason for Visit * Reason Comments Med Refill Encounter Details Date Type Department Care Team (Late st Contact Info) Description 06/17/2024 Refill [facility] MEDICINE 230 [place] [address] Kimberley Cunningham FNP [address] [place] [address] Other hyperlipidemia; Type 2 diabetes mellitus with [...]
== END 2025-01-07 09:19 | disposition home or self-care (01) ==
LOC: HO.US 09:18
PROVIDERS: PCP Internal Medicine; Visit Provider Internal Medicine Gastroenterology
DX: K75.81 Nonalcoholic steatohepatitis (NASH) (principal); K74.60 Unspecified cirrhosis of liver; R79.89 Other specified abnormal findings of blood chemistry; M33.13 Other dermatomyositis without myopathy
CPT/HCPCS: 76705; 76981; 99212

== ENCOUNTER → 2025-01-07 09:19 | Outpatient (BNV) | payer OTHER, SELFPAY | PROVIDERS: PCP Internal Medicine; Visit Provider Radiology Diagnostic Radiology | DX: K75.81 Nonalcoholic steatohepatitis (NASH) (principal) | CPT/HCPCS: 76705; 76981 ==

== ENCOUNTER 2025-01-07 11:20 | Outpatient (AMB) | payer OTHER, SELFPAY ==
--- NOTE | 2025-01-07 11:25 | MHC.OFFVIS ---
Vital Signs 01/07/25 11:29 Height 5 ft 4 in Weight 130 lb 4.691 oz BMI 22.4 BP 118/60 Blood Pressure Location Rt brachial Position Sitting Respiration 16 Pulse 79 Pulse Source Pulse Oximeter Pulse Oximetry (%) 98 Oxygen Delivery Method Room Air Intake Visit Reasons: Rhabdomyolysis Intake Note: Patient presents for Rhabdomyolysis. Nursing Center Tutor Required: Yes Nursing Center Tutor Language: Cfa Services: Nursing Center Tutor Present Nursing Center Tutor Name: Jojo [phone] Information Interpreted: non-clinical & clinical Allergies penicillin V Allergy (Unknown, Verified 01/07/25 11:28) hives Penicillins [PENICILLINS] Allergy (Unknown, Verified 01/07/25 11:28) RASH,DIZZINESS Medication List - Last Reconciled 01/07/25 by Dinora Sheth MD aspirin (Adult Low Dose Aspirin) 81 mg PO DAILY blood glucose control high,low (FreeStyle Control solution) As directed [blood pessure cuff As directed] blood sugar diagnostic (FreeStyle Lite Strips) 3 times a day blood-glucose meter (FreeStyle Lite Meter kit) As directed TID cholecalciferol (vitamin D3) 50 mcg PO DAILY dapagliflozin propanediol (Farxiga) 10 mg PO DAILY ferrous sulfate 325 mg PO BID fluoxetine 10 mg PO DAILY lancets (TRUEplus Lancets) As directed check BS TID lancets (FreeStyle Lancets) As directed three times a day levothyroxine 150 mcg PO DAILY@0600 losartan 25 mg PO DAILY melatonin 5 mg PO BEDTIME metformin 1,000 mg PO BID metoprolol succinate ER 50 mg PO DAILY pen needle, diabetic (BD Ultra-Fine Corin Pen Needle) As directed pen needle, diabetic (BD Corin 2nd Gen Pen Needle) once a day pen needle, diabetic (BD Ultra-Fine Corin Pen Needle) As directed once daily ticagrelor (Brilinta) 90 mg PO BID HPI Comments Details: Patient is a 63-year-old female with hypothyroidism, hypertension complicated by CAD status post stenting (10/2024 ) and 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 here today for follow up of polymyositis/dermatomyositis Interval History: Patient last seen 12/11/2024 with me. At that time she was being evaluated for elevated CK. 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 However due to the varied antibody profile with CA to an hMG CR positive muscle biopsy is needed to determine what type of myositis she has. At that visit she did not have an appointment. I reached out to surgery and asked for an appointment for her. 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 During the hospitalization she was noted to have elevated LFTs and was asked to follow up about this as an outpatient. She followed up with her primary care 12/02/2024. ?Labs were sent and it was noted that she had elevated CK greater than 8000 which on repeat increase to 10,000. Transaminases were elevated as well.? She was admitted to [facility] 12/03/24 with rhabdomyolysis and started on IV fluids.? Despite IV fluids her CK plateaued at around 5000.? She was previously on a statin but this was stopped prior to her 10/2024 hospitalization but this was stopped. Has been having muscle pain/bone pain for about 1 year. Feels that she is very weak and not able to walk or raise her arm above her head. No rashes Fingers do change color in the cold Current Rheumatology Medication(s): [facility] Medical History (Updated 12/24/24 @ 16:23 by Dinora Sheth MD) Dermatomyositis Elevated CK CAD (coronary artery disease) STEMI (ST elevation myocardial infarction) GERD (gastroesophageal reflux disease) Physical exam, pre-employment Sebaceous cyst RUQ pain Cervical polyp Muscle strain of right scapular region H. 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 Cognitive needs: No Hearing needs: No Vision needs: No Female Reproductive History Menstrual Age of Menarche: 12 Review of Systems Const Details: Review of Systems Constitutional: Denies fever, chills, weight loss ENT: Denies vision changes, eye pain or eye redness, dental caries, dry mouth GI: Denies nausea, vomiting, diarrhea, abdominal pain, change in BM Pulm: Denies SOB, TORRES, hemoptysis, wheezing Cards: Denies chest pain, palpitations Skin: Denies Raynaud's, rash, nail changes, photosensitivity, CANDLE 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 Well appearing and in no apparent painful distress HEENT Conjunctiva and sclera clear. ?Pupils equal round and reactive to light. ?No lymphadenopathy. ? CHEST/RESPIRATORY SYSTEM Normal respiratory effort and able to speak in complete sentences. ?Clear to auscultation bilaterally. ?No crackles, rales, rhonchi, wheezes heard. CARDIAC SYSTEM Regular rate and rhythm. ?S1 and S2 heard no murmurs. ?Radial pulses intact bilaterally MSK Hands: ?Good occupational therapist aide strength bilaterally. No deformities noted. ?No synovitis noted to the MCPs, PIPs or DIPs. ?No tenderness to palpation of these joints. Wrists: ?Full range of motion at the wrists without pain. ?No tenderness to palpation or synovitis noted to the wrists. Elbows: Full range of motion without pain. No tenderness, weakness, swelling, increased warmth or erythema. Shoulders: Full range of motion without pain. No tenderness, weakness, swelling, increased warmth or erythema. Hips: Full range of motion without pain. Hip bursa: No tenderness to palpation Knees: ?Full range of motion. ?No tenderness, swelling, increased warmth or erythema.?No effusion or crepitations Ankles: Full range of motion. ?No tenderness, swelling, increased warmth or erythema.? Feet: ?Negative squeeze test. ?No tenderness to palpation or swelling of the MTPs. Tender points:?No tenderness to palpation of the bilateral trapezius, supraspinatus, greater trochanters, anterior costochondral junctions, bilateral gluteal areas, bilateral suboccipital muscle insertions SKIN Skin intact without rashes. Livedeo reticularis No gottrons sign, holster sign, shawl sign normal capillary nailfolds neck flexion 4 occupational therapist aide strength 5 5 wrist flexion 5 5 wrist extension 5 5 shoulder abduction 4 4 shoulder adduction 5 5 hip flexion 4 4 knee extension 5 5 knee flexion 5 5 ankle dorsiflexion 5 5 ankle plantarflexion 5 5 Results Reviewed Results Reviewed: Laboratory Tests 10/28/24 12/02/24 12/11/24 11:02 11:13 12:45 KENNY Screen POSITIVE A KENNY Titer 1:40 H KENNY Pattern Nuclear, Speckled A Proteinase 3 (PR3) Ab <1.0 Myeloperoxidase Ab <1.0 KELSEY-1 Antibody <11 EJ Antibody <11 OJ Antibody <11 Mi-2-Alpha Ab <11 Mi-2-Beta Ab 26 H NXP-2 Ab <11 PL-7 Antibody <11 PL-12 Antibody <11 SRP Ab <11 MDA5 Ab <11 Myos P155/140 TIF1-g Ab <11 HMGCR IgG Antibody 224 H NT5C1A IgG Antibody 6 Anti-Smooth Muscle Ab <20 Tiss Transglutamin IgG <1.0 Tiss Transglutamin IgA <1.0 Rae/Kid Microsom Ab Int <=20.0 Hep Bs Antigen Negative Hep Bs Antibody REACTIVE Hep B Core Total Ab Reactive Hepatitis C Ab (EIA) Nonreactive Laboratory Tests 12/11/24 12/17/24 12/17/24 12:45 23:33 23:34 WBC 10.6 RBC 4.65 Hgb 12.3 Hct 37.3 Plt Count 517 H ESR 14 Sodium 138 Potassium 4.2 Chloride 103 Carbon Dioxide 26 BUN 15 Creatinine 0.60 AST 144 H ALT 313 H Alkaline Phosphatase 59 Total Creatine Kinase 6559 H 3996 H C-Reactive Protein < 0.10 Liver Elastography 12/2024 FINDINGS: Liver: The right lobe of the liver measures 15.9 cm in size. The left lobe of the liver measures 9.1 cm in size. The liver demonstrates normal homogeneous echotexture. Again seen is calcification in the right lobe. No focal mass or intrahepatic biliary ductal dilatation is identified. There is normal hepatopedal flow in the portal vein. Ultrasound elastography of the liver was performed with 10 separate measurements of the liver parenchyma with the patient in the supine position. Measurements were obtained approximately 2 cm below Isaac's capsule and perpendicular to the capsule. Images are of satisfactory quality. The median shear wave velocity is 1.13 m/s. The interquartile range/median (IQR/median) is 0.09. Gallbladder and biliary tree: The gallbladder is surgically absent. The common bile duct is normal in caliber measuring 7 mm. Right Kidney: The right kidney measures 10.7 cm in length. The right kidney is unremarkable, without evidence of masses, hydronephrosis, or calculi. Pancreas: The pancreatic head, neck, and body are unremarkable. The pancreatic tail is obscured by bowel gas. Abdominal aorta and inferior vena cava: The visualized portions of the abdominal aorta and inferior vena cava are normal in caliber. There is no free fluid in the right upper quadrant. US/US abdomen montano w elastography IMPRESSION: Unremarkable right upper quadrant ultrasound. The median shear wave velocity is 1.13 m/s, corresponding to a median liver stiffness of 3.82 kPa. The IQR/median value is 0.09. This is indicative of a quality data set. Findings are indicative of a normal elastography value with a low likelihood of severe fibrosis or cirrhosis. MRI Bilateral Femur 01/05/25 Findings: Visualized osseous structures are within normal limits. No fracture nor osseous lesion. No soft tissue fluid collections. Visualized musculature is intact. No masses are seen. Assessment & Plan Assessment & Plan (1) Dermatomyositis: Code(s): M33.13 - Other dermatomyositis without myopathy Category: Medical Plan: #Dermatomyositis vs immune mediated necrotizing myopathy versus polymyositis Patient is a 64-year-old female with elevated CK and aldolase associated with proximal muscle weakness. Further evaluation shows elevated Mi 2 beta and HMGCR antibodies. These 2 antibodies represent to different forms of inflammatory myopathies: Mi2 beta a seen in patients with dermatomyositis, Of note this has a great prognosis, responds well to steroids, is not associated with malignancy or ILD; HMGCR is associated with immune mediated necrotizing myopathy associated with statin use. Because these antibodies are on 2 different spectrum it is important that we get muscle biopsy to determine which type because that will influence how aggressive I will be with immunosuppression. It is surprising that the MRI of bilateral thighs was normal especially since patient has weakness involving the knee extension. Ideally I would want to get MRI of bilateral upper extremity but I do not want to delay her treatment any further. Maybe she would benefit from upper extremity biopsy to the deltoid instead of a thigh muscle biopsy. She has an appointment with general surgery tomorrow and we will hopefully be scheduled for her biopsy soon. Once the biopsy has been done we can move forward with at least starting steroids and we will wait for the results of the pathology to determine what steroid sparing agent would be best. Plan - Follow up in 1 month - Start steroids after biopsy done - Steroid sparing agent to be determined by results of pathology Plan I spent 30 minutes reviewing the record and labs, taking a history, examining the patient, discussing the treatment plan and documenting in the medical record Coding Level of Care Code Est Pt Level 4 (73464) Complex EM visit Add On G2211 Diagnoses Dermatomyositis M33.13
[2025-01-07 11:29] VITALS: BP 118/60; PULSE 79; RESP 16; O2SAT 98; BMI 22.4
--- OUTSIDE RECORDS SUMMARY | 2025-01-07 13:16 | XMS_ITS | Clinical Summary ---
Author Organization [employer] Address [address] [facility] 7t [place] [address] Care Team Providers Care Cable Way Operator Name Role Phone Unavailable Primary Care Provider [...] e 2 diabetes mellitus treated with insulin ([facility]) INJECT 8 UNITS SUBCUTANEOUSLY ONCE DAILY IN THE EVENING 15 mL 3 11/01/20 23 Active linaGLIPtin (Tradjenta) 5 MG tabletIndications: Type 2 diabetes mellitus without complication, with long-term current use of insulin ([facility]) TAKE 1 TABLET BY MOUTH EVERYDAY AT [...] 10 MGIndications:Type 2 diabetes mellitus with hyperglycemia ([facility]) TAKE 1 TABLET BY MOUTH EVERYDAY AT [...] complication, with long-term current use of insulin ([facility]) TAKE 1 TABLET BY MOUTH TWICE DAILY AT NOON AND IN THE EVENING 180 tablet 1 03/20/20 24 Active lisinopril 20 MG tabletIndications: Primary hypertension TAKE 1 TABLET BY MOUTH AT BEDTIME 90 tablet 2 05/22/20 24 Active FREESTYLE LITE test stripIndications:T ype 2 diabetes mellitus with hyperglycemia ([facility]) TEST BLOOD SUGAR 3 TIMES A DAY [...] -Pt in the process of re-establishing with [facility] -Per last available consult note: -CONT [...] Type Department Care Team Description 11/13/2024 Refill [facility] MEDICINE [address] [place] [address] Phalen, Kimberley, LEAD DATA ARCHITECT Type 2 diabetes mellitus without complication, with long-term current use of insulin ([facility]) 10/13/2024 Refill [facility] MED & PEDS [address] [place] [address] Kimberley Cunningham, EILEEN Type 2 diabetes mellitus without complication, with long-term current use of insulin ([facility]) from Last 3 Months Immunizations Name Administration [...] complication, with long-term current use of insulin ([facility]) MAMMOGRAM GENERIC Routine 10/05/2022 10: 20 AM [...] Legacy Procedure: Mammography Report 1 Kimberley Cunningham LEAD DATA ARCHITECT IMG BI PROCEDURES Final Result * LIPID [...] ?? Jesús ROBERTS et al. KORTNEY. 2013;310(19): 6202-5277 ?? (http://education.[employer] [place]/faq/CSX297) Non-HDL Cholesterol 87 <130 mg/dL (calc) [facility] Comment: For patients with diabetes plus 1 major ASCVD risk ?? factor, treating to a non-HDL-C goal of <100 mg/dL ?? (LDL-C of <70 mg/dL) is considered a therapeutic ?? option. Triglycerides 91 <150 mg/dL [facility] 10/04/2022 8:50 AM EST Kimberley Cunningham LEAD DATA ARCHITECT LAB BLOOD ORDERABLES Final Res ult [facility] * MICROALBUMIN, RANDOM (07/13/2021 10:40 AM EDT) Creatinine Urine 30.03 mg/dL [facility] Microalbum/Creati nine Ratio Ur TNP ug/mg cr [facility] Comment: Unable to calculate albumin/creatinine ratio due to low microalbumin or creatinine result. Microalbumin Urine <5.0 mg/L [facility] 07/13/2021 10:4 0 AM EDT Historical Provider MD HISTORICAL/NON ORDERABLE LABS Final Result Performing Organization Address City/[facility]/ZIP Co de Phone Number [facility] [address] * Hm Pap Smear (03/14/2019) Pap [...] Most Recently Relevant to Health Maintenance Insurance [facility] STAND ADULT
--- OUTSIDE RECORDS SUMMARY | 2025-01-07 13:16 | XMS_ITS | Encounter Summary ---
Author Organization [employer] Address [address] [facility] 7t [place] [address] Care Team Providers Care Motor Vehicle Field Representative Name Role Phone Kimberley Cunningham TOBACCO SAMPLE PULLER Primary Care Provider Reason for Visit * Reason Comments Med Refill Encounter Details Date Type Department Care Team ([facility] st Contact Info) Description 09/08/2023 Refill [facility] MEDICINE [address] [place], [place] [phone] Jojo Washburn MD [address] [place], [place] [phone] Depressive disorder Social History Tobacco Use Types [...] documented as of this encounter Care Teams Motor Vehicle Field Representative Relationship Specialty Start Date End Date Kimberley Cunningham FNP [address] [place] [id number] PCP - General Family Medicine 07/23/22 03/20/24 documented as of this encounter
--- OUTSIDE RECORDS SUMMARY | 2025-01-07 13:16 | XMS_ITS | Encounter Summary ---
Author Organization [employer] Address [address] [facility] [address] 7[address] [place] [address] Care Team Providers Care Parts Clerk Name Role Phone Kimberley Cunningham PRIMER ASSEMBLER Primary Care Provider [phone] Encounter Details Date Type Department Care Team (Late st Contact Info) Description 10/12/2023 Abstract [facility] MEDICINE [address] [place], [place] [phone] Sandra Villareal Social History Tobacco Use Types [...] as of this encounter Care Teams Parts Clerk Relationship Specialty Start Date End Date Kimberley Cunningham FNP [address] [place] [id number] PCP - General Family Medicine 07/23/22 03/20/24 documented as of this encounter
--- OUTSIDE RECORDS SUMMARY | 2025-01-07 13:16 | XMS_ITS | Encounter Summary ---
Author Organization [employer] Address [address] [place] [address] Care Team Providers Care Heel Seat Fitter Name Role Phone Unavailable Primary Care Provider Unavailabl e Reason for Visit * Reason Comments Med Refill Encounter Details Date Type Department Care Team ([facility] st Contact Info) Description 08/15/2024 Refill [facility] CH[facility] MED & PEDS [address] [place], [place] [phone] Kimberley Cunningham, SAT ACT INSTRUCTOR [address] [place] [address] Hypothyroidism, unspecified type Social History Tobacco Use [...]
--- OUTSIDE RECORDS SUMMARY | 2025-01-07 13:16 | XMS_ITS | Encounter Summary ---
Author Organization [employer] Address [address] [facility] [facility] [address] [place] [address] Care Team Providers Care Decating Machine Operator Name Role Phone Unavailable Primary Care Provider Unavailabl e Reason for Visit * Reason Comments Med Refill Encounter Details Date Type Department Care Team (Late st Contact Info) Description 05/20/2024 Refill [facility] MEDICINE [address] [place] [address] Kimberley Cunningham FNP [address] [place] [address] Primary hypertension Social History Tobacco Use Types [...] t he electric, gas, oil or water [employer] threatened to shut off services in your [...]
--- OUTSIDE RECORDS SUMMARY | 2025-01-07 13:16 | XMS_ITS | Encounter Summary ---
Author Organization [employer] Address [address] [facility] 7t [place] [address] Care Team Providers Care Hand Welt Butter Name Role Phone Unavailable Primary Care Provider Unavailabl e Reason for Visit * Reason Comments Med Refill Encounter Details Date Type Department Care Team ([facility] st Contact Info) Description 10/13/2024 Refill [facility] MED & PEDS [address] [place], [place] [phone] Kimberley Cunningham, EILEEN [address] [place] [address] Type 2 diabetes mellitus without complication, with long-term current use of insulin ([facility]) Social History Tobacco Use Types Packs/Day [...] complication, with long-term current use of insulin ([facility]) documented in this encounter Additional Health Concerns Assessment Noted Time PHQ-9 Depression Total Score: 2 01/09/20 23 9:19 AM EST documented as of this encounter
--- OUTSIDE RECORDS SUMMARY | 2025-01-07 13:16 | XMS_ITS | Encounter Summary ---
Author Organization [employer] Address [address] [facility] [place] [address] Care Team Providers Care Cork Mixer Name Role Phone Unavailable Primary Care Provider Unavailabl e Reason for Visit * Reason Comments Med Refill Encounter Details Date Type Department Care Team ([facility] st Contact Info) Description 11/13/2024 Refill [facility] MEDICINE [address] [place] [address] Kimberley Cunningham FNP [address] [place] [address] Type 2 diabetes mellitus without complication, with long-term current use of insulin ([facility]) Social History Tobacco Use Types Packs/Day [...] of insulin ([facility]) documented in this encounter Additional Health Concerns Assessment Noted Time PHQ-9 Depression Total Score: 2 01/09/20 23 9:19 AM EST documented as of this encounter
--- OUTSIDE RECORDS SUMMARY | 2025-01-07 13:16 | XMS_ITS | Encounter Summary ---
Author Organization [employer] Address [address] [facility] [place] [address] Care Team Providers Care Color Expert Name Role Phone Unavailable Primary Care Provider Unavailabl e Reason for Visit * Reason Comments Med Refill Encounter Details Date Type Department Care Team (Late st Contact Info) Description 06/17/2024 Refill [facility] MEDICINE [address] [place] [address] Kimberley Cunningham FNP [address] [place] [address] Other hyperlipidemia; Type 2 diabetes mellitus with [...]
--- OUTSIDE RECORDS SUMMARY | 2025-01-07 13:16 | XMS_ITS | Encounter Summary ---
Author Organization [employer] Address [address] [facility] [facility] [address] [place] [address] Care Team Providers Care Youth Services Specialist Name Role Phone Unavailable Primary Care Provider Unavailabl e Reason for Visit * Reason Comments Med Refill Encounter Details Date Type Department Care Team (Late st Contact Info) Description 05/21/2024 Refill [facility] MEDICINE [address] [place] [address] Kimberley Cunningham FNP [address] [place] [address] Primary hypertension Social History Tobacco Use Types [...] t he electric, gas, oil or water [employer] threatened to shut off services in your [...]
--- OUTSIDE RECORDS SUMMARY | 2025-01-07 13:16 | XMS_ITS | Encounter Summary ---
Author Organization [employer] [facility] Address [address] [facility] [address]t [place] [address] Care Team Providers Care Polisher Hand Name Role Phone Kimberley Cunningham Primary Care Provider [phone] Encounter Details Date Type Department Care Team (Latest Contact Info) Description 01/07/2020 Abstract [facility] Dental, Provider, DDS Social History Tobacco [...] on filedocumented in this encounter Care Teams Polisher Hand Relationship Specialty Start Date End Date Kimberley Cunningham FNP [address] [place] [address] PCP - General Family Medicine 07/23/22 03/20/24 documented as of this encounter
--- OUTSIDE RECORDS SUMMARY | 2025-01-07 13:16 | XMS_ITS | Encounter Summary ---
Author Organization [employer] [facility] Address [address] 7t [place] [address] Care Team Providers Care Imagery Analyst Name Role Phone Kimberley Cunningham Primary Care Provider [phone] Encounter Details Date Type Department Care Team (Latest Contact Info) Description 01/20/2021 Abstract [facility] CONVERSIONS Dental, Provider, DDS Social [...] on filedocumented in this encounter Care Teams Imagery Analyst Relationship Specialty Start Date End Date Kimberley Cunningham FNP [address] [place] [address] PCP - General Family Medicine 07/23/22 03/20/24 documented as of this encounter
--- OUTSIDE RECORDS SUMMARY | 2025-01-07 13:16 | XMS_ITS | Encounter Summary ---
Author Organization [employer] Address [address] 7t [place] [address] Care Team Providers Care Air Crew Officer Name Role Phone Unavailable Primary Care Provider Unavailabl e Reason for Visit * Reason Comments Med Refill Encounter Details Date Type Department Care Team ([facility] st Contact Info) Description 09/10/2024 Refill [facility]S [address] [place], [place] [phone] Kimberley Cunningham, EILEEN 505 [place], [place] [phone] Depressive disorder Social History Tobacco Use Types [...] t he electric, gas, oil or water [employer] threatened to shut off services in your [...]
--- OUTSIDE RECORDS SUMMARY | 2025-01-07 13:16 | XMS_ITS | Encounter Summary ---
Author Organization [employer] Address [address] 7t [place] [address] Care Team Providers Care Organ Grinder Name Role Phone Kimberley Cunningham Primary Care Provider [phone] Reason for Visit * Reason Comments Med Refill Encounter Details Date Type Department Care Team ([facility] st Contact Info) Description 07/26/2023 Refill [facility] MEDICINE [address] [place] [address] Kimberley Cunningham FNP [address] [place] [address] Depressive disorder Social History Tobacco Use Types [...] documented as of this encounter Care Teams Organ Grinder Relationship Specialty Start Date End Date Kimberley Cunningham FNP [address] [place] [address] PCP - General Family Medicine 07/23/22 03/20/24 documented as of this encounter
--- OUTSIDE RECORDS SUMMARY | 2025-01-07 13:16 | XMS_ITS | Encounter Summary ---
Author Organization [employer] Address [address] 7t [place] [address] Care Team Providers Care Public Relations Account Supervisor Name Role Phone Unavailable Primary Care Provider Unavailabl e Reason for Visit * Reason Comments Med Refill Encounter Details Date Type Department Care Team (Late st Contact Info) Description 08/12/2024 Refill [facility] MEDICINE 230 [place] [address] Kimberley Cunningham FNP [address] [place] [address] Vitamin D insufficiency Social History Tobacco Use [...] the past 12 months, has t he [employer], gas, oil or water company threatened to [...]
== END 2025-01-07 12:22 | disposition home or self-care (01) ==
PROVIDERS: PCP Internal Medicine; Visit Provider Student in an Organized Health Care Education/Training Program
DX: M33.13 Other dermatomyositis without myopathy (principal)
CPT/HCPCS: 99214; G2211

== ENCOUNTER 2025-01-08 09:20 | Outpatient (AMB) | payer OTHER, SELFPAY ==
--- NOTE | 2025-01-08 09:24 | MHC.OFFVIS ---
Vital Signs 01/08/25 09:28 Height 5 ft 4 in Weight 133 lb BMI 22.8 Intake Visit Reasons: muscle biopsy, dermatomyositis Intake Note: This patient presents for muscle biopsy consult for dermatomyositis. Pt: c/o; pain, muscle weakness left arm. Breakfast Cook Required: Yes Breakfast Cook Language: Museum Librarian Services: Breakfast Cook Present (Tri) Information Interpreted: non-clinical & clinical Accompanied by: Self / Same As Patient Allergies penicillin V Allergy (Unknown, Verified 01/08/25 09:29) hives Penicillins [PENICILLINS] Allergy (Unknown, Verified 01/08/25 09:29) RASH,DIZZINESS Medication List - Last Reconciled 01/08/25 by Shaheen Wolff MD aspirin (Adult Low Dose Aspirin) 81 mg PO DAILY blood glucose control high,low (FreeStyle Control solution) As directed [blood pessure cuff As directed] blood sugar diagnostic (FreeStyle Lite Strips) 3 times a day blood-glucose meter (FreeStyle Lite Meter kit) As directed TID cholecalciferol (vitamin D3) 50 mcg PO DAILY dapagliflozin propanediol (Farxiga) 10 mg PO DAILY ferrous sulfate 325 mg PO BID fluoxetine 10 mg PO DAILY insulin glargine (Lantus Solostar U-100 Insulin) units subcut lancets (TRUEplus Lancets) As directed check BS TID lancets (FreeStyle Lancets) As directed three times a day levothyroxine 150 mcg PO DAILY@0600 linagliptin (Tradjenta) mg PO DAILY losartan 25 mg PO DAILY melatonin 5 mg PO BEDTIME metformin 1,000 mg PO BID metoprolol succinate ER 50 mg PO DAILY pantoprazole mg PO DAILY pen needle, diabetic (BD Ultra-Fine Corin Pen Needle) As directed pen needle, diabetic (BD Corin 2nd Gen Pen Needle) once a day pen needle, diabetic (BD Ultra-Fine Corin Pen Needle) As directed once daily ticagrelor (Brilinta) 90 mg PO BID HPI HPI muscle biopsy, dermatomyositis: Details: [age] year old female referred for a muscle biopsy by the dictating machine typist. She had undergone stenting of her LAD after STEMI in [facility] last October,. She was noted to have elevated liver enzymes at that time. She had a follow up with the primary care physician last month and her CK was greater than 8000. This went as high as 10,000. Transaminases were also elevated. She was admitted therefore for rhabdomyolysis she here in the hospital last 12/03/2024. Her CKs have plateaued at around 5000. She also had been describing muscle pain about 1 year along with some muscle weakness. She says she is unable to raise her arm above her head so she was referred to me for a muscle biopsy. She says that her muscle strength seems to be steadily improving. [facility] Medical History Dermatomyositis Elevated CK CAD (coronary artery disease) STEMI (ST elevation myocardial infarction) GERD (gastroesophageal reflux disease) Physical exam, pre-employment Sebaceous cyst RUQ pain Cervical polyp Muscle strain of right scapular region H. 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 Father Diabetes Heart disease Mother Diabetes Hypertension Heart disease Brother Lung cancer Sister Heart disease Social History Household Members: Family Housing: House Are you a primary child care centre manager to a significant other at home: No Do you presently have visiting nurse or other home services: Yes Alcohol intake: never Patient Tobacco Use Status: Never used Tobacco Tobacco use type: Cigarette e-Cigarette/Vaping Use: Never Used Second Hand Smoke Exposure: No service: No Current occupational status: employed and disabled Current occupation: [employer] Cognitive needs: No Hearing needs: No Vision needs: No Female Reproductive History Menstrual Age of Menarche: 12 Review of Systems Const Denies chills and Denies fever(s) Card Denies chest pain, Denies dyspnea and Denies dyspnea on exertion Resp Denies cough, Denies dyspnea and Denies dyspnea on exertion GI Denies hematochezia and Denies change in bowel habits Denies hematuria Musc Details: Muscle weakness Denies back pain and Denies limited range of motion Neuro Denies focal weakness and Denies convulsions Psych Denies depression and Denies mood swings Assessment & Plan Assessment & Plan (1) Elevated CK: Code(s): R74.8 - Abnormal levels of other serum enzymes Category: Medical Plan: She was referred to me for muscle biopsy. She states that her left shoulder is the 1 that seems to be weakest. I explained the technique of left deltoid muscle biopsy under anesthesia. I reviewed with the risks including but not limited to bleeding, infections and poor healing. I explained to her what to expect She stated that she just had an NH about 6 weeks ago and is very concerned about having any procedure. She is anxious about going for this muscle biopsy. She told me that she wants to hold off on this for now. She says she feels that she has been improving steadily. I told her that I will discuss this with her dictating machine typist. Coding Level of Care Code New Pt Level 3 (28176) Diagnoses Elevated CK R74.8
[2025-01-08 09:28] VITALS: BMI 22.8
--- OUTSIDE RECORDS SUMMARY | 2025-01-08 09:45 | XMS_ITS | Encounter Summary ---
Author Organization [employer] [facility] Address [address] 7t [place] [address] Care Team Providers Care Loan Manager Name Role Phone Kimberley Cunningham Primary Care Provider [phone] Encounter Details Date Type Department Care Team (Latest Contact Info) Description 01/07/2020 Abstract [facility] CONVERSIONS Dental, Provider, DDS Social History [...] on filedocumented in this encounter Care Teams Loan Manager Relationship Specialty Start Date End Date Kimberley Cunningham FNP [address] [place] [address] PCP - General Family Medicine 07/23/22 03/20/24 documented as of this encounter
--- OUTSIDE RECORDS SUMMARY | 2025-01-08 09:45 | XMS_ITS | Encounter Summary ---
Author Organization [employer] [facility] Address [address] [facility] 7t [place] [address] Care Team Providers Care Forestry Foreman Name Role Phone Kimberley Cunningham Primary Care Provider [phone] Encounter Details Date Type Department Care Team (Latest Contact Info) Description 01/20/2021 Abstract [facility] CONVERSIONS Dental, Provider, DDS Social History [...] on filedocumented in this encounter Care Teams Forestry Foreman Relationship Specialty Start Date End Date Kimberley Cunningham FNP [address] [place] [address] PCP - General Family Medicine 07/23/22 03/20/24 documented as of this encounter
--- OUTSIDE RECORDS SUMMARY | 2025-01-08 09:45 | XMS_ITS | Encounter Summary ---
Author Organization [employer] Address [address]t [place] [address] Care Team Providers Care Cushion Stuffer Name Role Phone Unavailable Primary Care Provider Unavailabl e Reason for Visit * Reason Comments Med Refill Encounter Details Date Type Department Care Team (Late st Contact Info) Description 06/17/2024 Refill [facility] MEDICINE [address] [place] [address] Kimberley Cunningham FNP [address] [place] [address] Other hyperlipidemia; Type 2 diabetes mellitus with [...]
--- OUTSIDE RECORDS SUMMARY | 2025-01-08 09:45 | XMS_ITS | Encounter Summary ---
Author Organization [employer] Address [address] 7t [place] [address] Care Team Providers Care Machine Helper Name Role Phone Unavailable Primary Care Provider Unavailabl e Reason for Visit * Reason Comments Med Refill Encounter Details Date Type Department Care Team ([facility] st Contact Info) Description 10/13/[address] [facility] MED & PEDS [address] [place], [place] [phone] Kimberley Cunningham, EILEEN [address] [place] [address] Type 2 diabetes mellitus without complication, with long-term current use of insulin ([facility]) Social History Tobacco Use Types Packs/Day Years [...] complication, with long-term current use of insulin ([facility]) documented in this encounter Additional Health Concerns Assessment Noted Time PHQ-9 Depression Total Score: 2 01/09/20 23 9:19 AM EST documented as of this encounter
--- OUTSIDE RECORDS SUMMARY | 2025-01-08 09:45 | XMS_ITS | Encounter Summary ---
Author Organization [employer] Address [address] 7t [place] [address] Care Team Providers Care Machine Helper Name Role Phone Unavailable Primary Care Provider Unavailabl e Reason for Visit * Reason Comments Med Refill Encounter Details Date Type Department Care Team (Late st Contact Info) Description 05/21/2024 Refill [facility] MEDICINE [address] [place] [address] Kimberley Cunningham FNP [address] [place] [address] Primary hypertension Social History Tobacco Use Types [...] t he electric, gas, oil or water [employer] threatened to shut off services in your [...]
--- OUTSIDE RECORDS SUMMARY | 2025-01-08 09:45 | XMS_ITS | Encounter Summary ---
Author Organization [employer] Address [address] 7t [place] [address] Care Team Providers Care Mexican Food Maker Hand Name Role Phone Unavailable Primary Care Provider Unavailabl e Reason for Visit * Reason Comments Med Refill Encounter Details Date Type Department Care Team (Late st Contact Info) Description 08/12/2024 Refill [facility] MEDICINE [address] [place] [address] Kimberley Cunningham FNP [address] [place] [address] Vitamin D insufficiency Social History Tobacco Use [...] the past 12 months, has t he [employer], gas, oil or water company threatened to [...]
--- OUTSIDE RECORDS SUMMARY | 2025-01-08 09:45 | XMS_ITS | Encounter Summary ---
Author Organization [employer] Address [address]t [place] [address] Care Team Providers Care Audio Visual Collections Coordinator Name Role Phone Unavailable Primary Care Provider Unavailabl e Reason for Visit * Reason Comments Med Refill Encounter Details Date Type Department Care Team (Late st Contact Info) Description 05/20/2024 Refill [facility] MEDICINE [address] [place] [address] Kimberley Cunningham FNP [address] [place] [address] Primary hypertension Social History Tobacco Use Types [...] t he electric, gas, oil or water [employer] threatened to shut off services in your [...]
--- OUTSIDE RECORDS SUMMARY | 2025-01-08 09:45 | XMS_ITS | Encounter Summary ---
Author Organization [employer] Address [address] [facility] 7t [place] [address] Care Team Providers Care Machine Tool Builder Name Role Phone Kimberley Cunningham MATERIAL HANDLER 1ST SHIFT Primary Care Provider [phone] Reason for Visit * Reason Comments Med Refill Encounter Details Date Type Department Care Team ([facility] st Contact Info) Description 09/08/2023 Refill [facility] MEDICINE [address] [place], [place] [phone] Jojo Washburn MD [address] [place], [place] [phone] Depressive disorder Social History Tobacco Use Types [...] documented as of this encounter Care Teams Machine Tool Builder Relationship Specialty Start Date End Date Kimberley Cunningham FNP [address] [place] [address] PCP - General Family Medicine 07/23/22 03/20/24 documented as of this encounter
--- OUTSIDE RECORDS SUMMARY | 2025-01-08 09:45 | XMS_ITS | Encounter Summary ---
Author Organization [employer] Address [address] [facility] 7t [place] [address] Care Team Providers Care Vulcanized Fiber Unit Operator Name Role Phone Kimberley Cunningham Primary Care Provider [phone] Reason for Visit * Reason Comments Med Refill Encounter Details Date Type Department Care Team ([facility] st Contact Info) Description 07/26/2023 Refill [facility] MEDICINE [address] [place] [address] Kimberley Cunningham FNP [address] [place] [address] Depressive disorder Social History Tobacco Use Types [...] documented as of this encounter Care Teams Vulcanized Fiber Unit Operator Relationship Specialty Start Date End Date Kimberley Cunningham FNP [address] [place] [address] PCP - General Family Medicine 07/23/22 03/20/24 documented as of this encounter
--- OUTSIDE RECORDS SUMMARY | 2025-01-08 09:45 | XMS_ITS | Encounter Summary ---
Author Organization [employer] Address [address] [place] [address] Care Team Providers Care Mill Tender Warm Up Name Role Phone Unavailable Primary Care Provider Unavailabl e Reason for Visit * Reason Comments Med Refill Encounter Details Date Type Department Care Team ([facility] st Contact Info) Description 11/13/2024 Refill [facility] MEDICINE [address] [place] [address] Kimberley Cunningham FNP [address] [place] [address] Type 2 diabetes mellitus without complication, with long-term current use of insulin ([facility]) Social History Tobacco Use Types Packs/Day Years [...] complication, with long-term current use of insulin ([facility]) documented in this encounter Additional Health Concerns Assessment Noted Time PHQ-9 Depression Total Score: 2 01/09/20 23 9:19 AM EST documented as of this encounter
--- OUTSIDE RECORDS SUMMARY | 2025-01-08 09:45 | XMS_ITS | Encounter Summary ---
Author Organization [employer] Address [address]t [place] [address] Care Team Providers Care Merchandise Pickup/Receiving Associate Name Role Phone Kimberley Cunningham MANAGER ADOBE Primary Care Provider Encounter Details Date Type Department Care Team (Late st Contact Info) Description 10/12/2023 Abstract [facility] MEDICINE [address] [place], [place] [phone] Sandra Villareal Social History Tobacco Use Types [...] documented as of this encounter Care Teams Merchandise Pickup/Receiving Associate Relationship Specialty Start Date End Date Kimberley Cunningham FNP [address] [place] [address] PCP - General Family Medicine 07/23/22 03/20/24 documented as of this encounter
--- OUTSIDE RECORDS SUMMARY | 2025-01-08 09:45 | XMS_ITS | Encounter Summary ---
Author Organization [employer] Address [address] [place] [address] Care Team Providers Care Tanning Consultant Name Role Phone Unavailable Primary Care Provider Unavailabl e Reason for Visit * Reason Comments Med Refill Encounter Details Date Type Department Care Team ([facility] st Contact Info) Description 08/15/2024 Refill [facility] MED [facility] PEDS [address] [place], [place] [phone] Kimberley Cunningham, CCO [address] [place] [address] Hypothyroidism, unspecified type Social History Tobacco Use [...]
--- OUTSIDE RECORDS SUMMARY | 2025-01-08 09:45 | XMS_ITS | Encounter Summary ---
Author Organization [employer] Address [address] [place] [address] Care Team Providers Care Chain Builder Name Role Phone Unavailable Primary Care Provider Unavailabl e Reason for Visit * Reason Comments Med Refill Encounter Details Date Type Department Care Team ([facility] st Contact Info) Description 09/10/2024 Refill [facility]S [address] [place], [place] [phone] Kimberley Cunningham, EILEEN [address] [place], [place] [phone] Depressive disorder Social History Tobacco Use Types [...] t he electric, gas, oil or water [employer] threatened to shut off services in your [...]
--- OUTSIDE RECORDS SUMMARY | 2025-01-08 09:45 | XMS_ITS | Clinical Summary ---
Author Organization [employer] Address [address] [facility] 7[address] [place] [address] Care Team Providers Care Energy Sales Broker Name Role Phone Unavailable Primary Care Provider [...] e 2 diabetes mellitus treated with insulin ([facility]) INJECT 8 UNITS SUBCUTANEOUSLY ONCE DAILY IN THE EVENING 15 mL 3 11/01/20 23 Active linaGLIPtin (Tradjenta) 5 MG tabletIndications: Type 2 diabetes mellitus without complication, with long-term current use of insulin ([facility]) TAKE 1 TABLET BY MOUTH EVERYDAY [...] 10 MGIndications:Type 2 diabetes mellitus with hyperglycemia ([facility]) TAKE 1 TABLET BY MOUTH EVERYDAY [...] complication, with long-term current use of insulin ([facility]) TAKE 1 TABLET BY MOUTH TWICE DAILY AT NOON AND IN THE EVENING 180 tablet 1 03/20/20 24 Active lisinopril 20 MG tabletIndications: Primary hypertension TAKE 1 TABLET BY MOUTH AT BEDTIME 90 tablet 2 05/22/20 24 Active FREESTYLE LITE test stripIndications:T ype 2 diabetes mellitus with hyperglycemia ([facility]/HCC) TEST BLOOD SUGAR 3 TIMES A [...] -Pt in the process of re-establishing with [facility] -Per last available consult note: -CONT [...] Type Department Care Team Description 11/13/2024 Refill [facility] MEDICINE [address] [place] [address] Phalen, Kimberley, ROOM SERVICE MANAGER Type 2 diabetes mellitus without complication, with long-term current use of insulin ([facility]) 10/13/2024 Refill [facility] MED & PEDS [address] [place] [address] Kimberley Cunningham, EILEEN Type 2 diabetes mellitus without complication, with long-term current use of insulin ([facility]) from Last 3 Months Immunizations Name [...] complication, with long-term current use of insulin ([facility]) MAMMOGRAM GENERIC Routine 10/05/2022 10: 20 [...] Legacy Procedure: Mammography Report 1 Kimberley Cunningham ROOM SERVICE MANAGER IMG BI PROCEDURES Final Result * LIPID [...] ?? Jesús ROBERTS et al. KORTNEY. 2013;310(19): 9576-4565 ?? (http://education.[employer]/faq/AHZ303) Non-HDL Cholesterol 87 <130 mg/dL (calc) [facility] Comment: For patients with diabetes plus 1 major ASCVD risk ?? factor, treating to a non-HDL-C goal of <100 mg/dL ?? (LDL-C of <70 mg/dL) is considered a therapeutic ?? option. Triglycerides 91 <150 mg/dL [facility] 10/04/2022 8:50 AM EST Kimberley Cunningham ROOM SERVICE MANAGER LAB BLOOD ORDERABLES Final Res ult [facility] * MICROALBUMIN, RANDOM (07/13/2021 10:40 AM EDT) Creatinine Urine 30.03 mg/dL [facility] Microalbum/Creati nine Ratio Ur TNP ug/mg cr [facility] Comment: Unable to calculate albumin/creatinine ratio due to low microalbumin or creatinine result. Microalbumin Urine <5.0 mg/L [facility] 07/13/2021 10:4 0 AM EDT Historical Provider MD HISTORICAL/NON ORDERABLE LABS Final Result Performing Organization Address City/[facility]/ZIP Co de Phone Number [facility] [address] * Hm Pap Smear (03/14/2019) Pap [...] Most Recently Relevant to Health Maintenance Insurance [facility] STAND ADULT
== END 2025-01-08 09:38 | disposition home or self-care (01) ==
PROVIDERS: PCP Internal Medicine; Visit Provider Surgery
DX: R74.8 Abnormal levels of other serum enzymes (principal); M33.13 Other dermatomyositis without myopathy
CPT/HCPCS: 99213

== ENCOUNTER → 2025-01-08 09:20 | Outpatient (BNVA) | payer OTHER, SELFPAY | PROVIDERS: PCP Internal Medicine; Visit Provider Surgery | DX: R74.8 Abnormal levels of other serum enzymes (principal) | CPT/HCPCS: 99212 ==

== ENCOUNTER 2025-01-12 13:45 | Emergency (ER) | payer OTHER, SELFPAY ==
--- NOTE | ~2025-01-12 | CT_ITS ---
CLINICAL HISTORY: upper abdominal pain CT of the abdomen and pelvis utilizing intravenous contrast. Comparison 01/22/2019. Findings: There has been a cholecystectomy. Small nonobstructive left renal stone. The spleen and pancreas are unremarkable. No abdominal aortic aneurysm. There is mild motion artifact. Normal appendix. There is no bowel obstruction. No definite diverticulitis is identified. There is mild nonspecific colonic wall thickening. There is mild bladder distention. Impression: Mild colonic wall thickening could be incidental although mild colitis is technically a possibility. No bowel obstruction or definite diverticulitis. Other findings as above. This document has been electronically signed by: Evan King MD on 01/12/2025 21:00:34
[2025-01-12 14:00] VITALS: BP 146/71; PULSE 78; RESP 18; TEMP 36.6; O2SAT 99; BMI 22.7
--- NOTE | 2025-01-12 14:03 | ED.ABDPAIN ---
HPI - Abdominal Pain General Chief Complaint: Abdominal Pain Stated Complaint: Stomach Pain Time Seen by Provider: 01/12/25 18:52 Source: patient, RN notes reviewed, old records reviewed and employee relations administrator Mode of arrival: ambulatory Limitations: language barrier History of Present Illness ED Provider: Tish HPI narrative: 64-year-old female with past medical history significant for coronary artery disease, recent diagnosis of dermatomyositis, diabetes, GERD, Elevated LFTs, hypothyroidism presents for evaluation of abdominal pain. Patient reports 3 days of upper abdominal pain. She has had nausea since yesterday Her last bowel movement was this morning The patient is status post cholecystectomy. She had a myocardial infarction 2 months ago and was seen at [facility] She was started on Brilinta, losartan and atorvastatin. The atorvastatin was eventually discontinued due to elevated LFTs The patient has more recently being worked up for dermatomyositis due to elevated CPK She has thus far declined muscle biopsy with general surgery However she has had elevated markers consistent with dermatomyositis She reports that she was not started any medications including steroids for her recent diagnosis. She was no fevers or chills Related Data Home Medications ?Medication ?Instructions ?Recorded ?Confirmed blood glucose control high and low #1 ea 09/07/20 01/08/25 solution (FreeStyle Control solution) lancets 33 gauge (TRUEplus Lancets) #100 ea 11/29/23 01/08/25 aspirin 81 mg tablet,delayed 81 mg PO DAILY 11/20/24 01/08/25 release (Adult Low Dose Aspirin) dapagliflozin propanediol 10 mg 10 mg PO DAILY 11/23/24 01/08/25 tablet (Farxiga) levothyroxine 150 mcg tablet 150 mcg PO DAILY@0600 12/03/24 01/08/25 melatonin 5 mg capsule 5 mg PO BEDTIME 12/03/24 01/08/25 insulin glargine 100 unit/mL (3 unit subcut 01/08/25 01/08/25 mL) subcutaneous pen (Lantus Solostar U-100 Insulin) linagliptin 5 mg tablet (Tradjenta) mg PO DAILY 01/08/25 01/08/25 pantoprazole 40 mg tablet,delayed mg PO DAILY 01/08/25 01/08/25 release Previous Rx's ?Medication ?Instructions ?Recorded pen needle, diabetic 32 gauge x #100 ea 11/02/20 (BD Corin 2nd Gen Pen Needle) pen needle, diabetic 32 gauge x #100 ea 04/18/22 (BD Ultra-Fine Corin Pen Needle) lancets 28 gauge (FreeStyle #100 ea 11/29/23 Lancets) pen needle, diabetic 32 gauge x #100 ea 06/17/24 (BD Ultra-Fine Corin Pen Needle) cholecalciferol (vitamin D3) 50 50 mcg PO DAILY #90 caps 08/26/24 mcg (2,000 unit) capsule fluoxetine 10 mg capsule 10 mg PO DAILY #90 caps 10/03/24 metformin 1,000 mg tablet 1,000 mg PO BID #180 tabs 10/21/24 blood pessure cuff #1 ea 11/28/24 blood sugar diagnostic (FreeStyle #100 ea 11/28/24 Lite Strips) blood-glucose meter (FreeStyle #1 ea 11/28/24 Lite Meter kit) metoprolol succinate 50 mg 50 mg PO DAILY #90 tabs 12/02/24 tablet,extended release 24 hr ticagrelor 90 mg tablet (Brilinta) 90 mg PO BID #60 tabs 12/12/24 ferrous sulfate 325 mg (65 mg 325 mg PO BID #60 tabs 12/15/24 iron) tablet losartan 25 mg tablet 25 mg PO DAILY #90 tabs 12/31/24 Allergies Allergy/AdvReac Type Severity Reaction Status Date / Time penicillin V Allergy Unknown hives Verified 01/12/25 14:01 Penicillins [PENICILLINS] Allergy Unknown RASH,DIZZIN Verified 01/12/25 14:01 ESS Review of Systems Constitutional: Denies body ache(s), Denies chills and Denies fever(s) Eyes: Denies exophthalmos Denies vertigo and Denies dizziness Cardiovascular: Denies chest pain Respiratory: Denies cough Gastrointestinal: Reports abdominal pain, Reports bloating, Denies diarrhea, Denies loose stools, Reports nausea and Denies vomiting Denies vertigo and Denies dizziness PMFSH Past Medical History Medical History Dermatomyositis Elevated CK CAD (coronary artery disease) STEMI (ST elevation myocardial infarction) GERD (gastroesophageal reflux disease) Physical exam, pre-employment Sebaceous cyst RUQ pain Cervical polyp Muscle strain of right scapular region H. pylori infection Overweight (BMI 25.0-29.9) Hypertension Hypothyroidism FPC (current) use of insulin Diabetes type 2, uncontrolled Surgical History History of coronary artery stent placement Hx of tubal ligation Hx of cholecystectomy Family History Family History Unknown No problems noted. Father Diabetes Heart disease Mother Diabetes Hypertension Heart disease Brother Lung cancer Sister Heart disease Social History Social History Household Members: Family Housing: House Are you a primary career orientation teacher to a significant other at home: No Do you presently have visiting nurse or other home services: Yes Alcohol intake: never Patient Tobacco Use Status: Never used Tobacco Tobacco use type: Cigarette e-Cigarette/Vaping Use: Never Used Second Hand Smoke Exposure: No Advance Directives: No Advance Directives Information Provided: No Do you have a plan to hurt others: No Plan service: No Current occupational status: employed and disabled 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 Cognitive needs: No Hearing needs: No Vision needs: No Physical Exam ED Vital Signs: Vital Signs - 24 hr 01/12/25 14:00 Temperature 98 F Pulse Rate 78 Respiratory Rate 18 Blood Pressure 146/71 H Pulse Oximetry 99 Oxygen Delivery Method Room Air BMI result Body Mass Index 22.7 Const General: healthy appearing, comfortable, no acute distress, alert and awake Nutritional Appearance: well nourished Orientation/consciousness: patient oriented x3 HENMT Head: Yes normocephalic and Yes atraumatic Eyes Eyelids: Yes eyelids normal Conjunctivae: conjunctivae normal Sclerae: sclerae normal Corneas: corneas normal Pupils: Equal, round and reactive pupils present EOM: EOMs intact bilaterally Neck Neck: Yes full ROM Resp Effort & Inspection: normal respiratory effort, able to speak in complete sentences and not labored GI Inspection: No distended Palpation (GI): Soft to palpation, not firm, Tenderness to palpation present (GI) in the epigastrum and in the LUQ; not in the LLQ, not in the RLQ and not in the RUQ, no guarding and not rigid Skin General skin exam: elasticity normal Neuro General: patient oriented x3 Cranial nerves: Yes Equal, round and reactive pupils present and Yes Bilaterally intact EOM present Cognition (Neuro): normal cognition Extrem Other: Moving all extremities well without any obvious deformities Course Course Course Narrative: This is an RME: Additional HPI, ROS, PE not included below will be deferred to primary provider. RME assessment and note performed by: Meena Dudley PA-C This is a 64-year-old Peruvian-speaking female who presents emergency department with complaints of epigastric pain for the last 2 days. Patient has had an TX and had an LAD stent placed at [facility] in October. She has had elevated CPKs in the past. She does report she had an episode of chest pain which radiated into her left shoulder yesterday which lasted for minutes. No CP today. Plan: Labs, EKG, further ER evaluation needed. Reevaluation(s) Reevaluation #1: Patient's CT scan shows possible colitis. The patient has no lower abdominal pain or diarrhea. This can be treated with a liquid diet. There was no evidence of pancreatitis or other intra-abdominal pathology or infection. Time: 21:26 Medical Decision Making Medical Decision Making [facility] Narrative: 64-year-old female with past medical history as documented above presents for evaluation of upper abdominal pain with nausea. She does report a history of gastritis and her symptoms may be related to that. However given her recent medically she was with an elevated CPK, elevated LFTs and acute symptoms we will get a CT scan of the abdomen pelvis. She appears well, she has no rebound, guarding or abdominal distention. Her labs are significant for no leukocytosis or significant anemia. A slightly elevated platelet count which is consistent with a baseline. [place] [id number] which is trending down from her recent labs, elevated AST and ALT which is consistent with a baseline. No other electrolyte abnormalities Differential Diagnosis Differential Diagnoses: The differential diagnosis associated with the presentation includes Gastritis GERD Peptic ulcer disease Pancreatitis Lab Data [facility] Lab Attestation statement: I reviewed the patient's lab results. As above 01/12/25 14:23 01/12/25 14:23 Labs: Lab Results 01/12/25 Range/Units 14:23 WBC 10.8 (4.8-10.8) X10*3/uL RBC 4.67 (4.20-5.50) X10*6/uL Hgb 12.3 (12.0-16.0) g/dl Hct 37.3 (37.0-47.0) % MCV 79.9 L (80.0-98.0) fL MCH 26.3 L (27.0-33.0) pg MCHC 33.0 (31.0-35.0) g/dl RDW 15.0 (11.0-16.0) % Plt Count 480 H (160-400) X10*3/uL MPV 8.9 L (9.4-12.3) fL Immature Gran % (Auto) 0.3 (0.0-0.4) % Neut % (Auto) 79.4 H (45-73) % Lymph % (Auto) 13.8 L (20-40) % [place] % (Auto) 5.3 (2-11) % Eos % (Auto) 0.8 (0-4) % Baso % (Auto) 0.4 (0-2) % Lymph # (Auto) 1.5 (1.2-4.9) X10*3/uL [place] # (Auto) 0.6 (0.1-1.2) X10*3/uL Eos # (Auto) 0.1 (0.0-0.4) X10*3/uL Baso # (Auto) 0.0 (0.0-0.2) X10*3/uL Abs Immat Gran (auto) 0.03 (0.00-0.03) X10*3/uL Absolute Neuts (auto) 8.5 H (2.0-8.3) x10*3/uL Absolute Nucleated RBC 0.000 (0.0-0.012) X10*3/uL Nucleated RBC % (auto) 0.0 (0.0-0.2) /100WBC APTT 29.6 (26.0-36.8) SEC Sodium 141 (135-145) mmol/L Potassium 5.1 D (3.3-5.1) mmol/L Chloride 107 (96-108) mmol/L Carbon Dioxide 26 (22-29) mmol/L Anion Gap 13 (12-20) BUN 18 H (9-16) mg/dL Creatinine 0.65 (0.5-1.4) mg/dL Estim Creat Clear Calc 77.4 Estimated GFR > 60 Random Glucose 207 H (60-115) mg/dL Calcium 10.2 (8.4-10.2) mg/dL Magnesium 2.0 (1.6-2.6) mg/dL Total Bilirubin 0.3 (0.0-1.0) mg/dL Direct Bilirubin 0.1 (0.0-0.5) mg/dL AST 120 H (5-31) U/L ALT 188 H (0-31) U/L Alkaline Phosphatase 68 (39-117) U/L Total Creatine Kinase 3890 H (26-140) U/L Troponin I High Sens 6.1 D (<3.5-17.0) ng/L Total Protein 7.9 (6.5-8.0) g/dL Albumin 4.3 (3.5-5.0) g/dL Lipase 35 (8-78) U/L Influenza Type A (PCR) NEGATIVE (Negative) Influenza Type B (PCR) NEGATIVE (Negative) RSV RNA Qual (PCR) NEGATIVE (Negative) SARS-CoV-2 RNA (RT-PCR) NEGATIVE (Negative) Radiology Impression Discussion of test interpretation with radiology: I have reviewed the radiologist's reading. Radiologist Impression: Findings: There has been a cholecystectomy. Small nonobstructive left renal stone. The spleen and pancreas are unremarkable. No abdominal aortic aneurysm. There is mild motion artifact. Normal appendix. There is no bowel obstruction. No definite diverticulitis is identified. There is mild nonspecific colonic wall thickening. There is mild bladder distention. Impression: Mild colonic wall thickening could be incidental although mild colitis is technically a possibility. No bowel obstruction or definite diverticulitis. Other findings as above. This document has been electronically signed by: Evan King MD on 01/12/2025 21:00:34 Medications Administered Discontinued Medications Generic Name Dose Route Start Last Admin Trade Name Freq PRN Reason Stop Dose Admin Al Hydroxide/Mg Hydroxide 30 ml 01/12/25 19:10 01/12/25 20:38 Magnesium Hydrox/Alum Hydrox 30 Ml Oral.Susp PO 01/12/25 19:11 Not Given ONCE ONE Sodium Chloride 1,000 mls @ 999 mls/hr 01/12/25 19:15 01/12/25 21:11 Ns IV 01/12/25 20:15 Infused .Q1H1M ARIS Infusion Iohexol 85 ml 01/12/25 20:14 01/12/25 20:14 Iohexol 350 Mg/Ml 100 Ml Infus..Btl IV 01/12/25 20:15 85 ml ONCE ONE Administration Lidocaine HCl 15 ml 01/12/25 19:10 01/12/25 20:38 Lidocaine Hcl Viscous 2 % 15 Ml Solution MUCOUS MEM 01/12/25 19:11 Not Given ONCE ONE Discharge Plan Discharge Clinical Impression: Abdominal pain, Elevated CPK Patient Disposition: Home, Self-Care Instructions: Abdominal Pain (ED) Additional Instructions: Your workup in the ER today was reassuring. This includes your labs, although your CPK was still elevated. This is still likely related to dermatomyositis. I recommend that you follow-up with the general surgeon for your muscle biopsy Your CT scan did not show any concerning findings Follow-up with your primary doctor, return for new or worsening symptoms Prescriptions: No Action (DME) pen needle, diabetic [BD Corin 2nd Gen Pen Needle] 32 gauge x 5/32 needle See Rx Instructions .MEDSUPPLY Qty: 100 4RF Rx Instructions: once a day (DME) pen needle, diabetic [BD Ultra-Fine Corin Pen Needle] 32 gauge x 5/32 needle See Rx Instructions .Route Qty: 100 1RF Rx Instructions: As directed cholecalciferol (vitamin D3) 50 mcg (2,000 unit) capsule 50 mcg PO DAILY Qty: 90 3RF fluoxetine 10 mg capsule 10 mg PO DAILY Qty: 90 1RF metformin 1,000 mg tablet 1,000 mg PO BID Qty: 180 1RF (DME) FreeStyle Lite Strips Strip See Rx Instructions .ROUTE .MEDSUPPLY Qty: 100 5RF Rx Instructions: 3 times a day (DME) blood-glucose meter [FreeStyle Lite Meter] Kit See Rx Instructions .Route Qty: 1 0RF Rx Instructions: As directed TID (DME) blood pessure cuff See Rx Instructions .Route .MEDSUPPLY Qty: 1 0RF Rx Instructions: As directed Brilinta 90 mg tablet 90 mg PO BID Qty: 60 11RF ferrous sulfate 325 mg (65 mg iron) Tablet 325 mg PO BID Qty: 60 6RF losartan 25 mg tablet 25 mg PO DAILY Qty: 90 0RF levothyroxine 150 mcg tablet 150 mcg PO DAILY@0600 melatonin 5 mg capsule 5 mg PO BEDTIME dapagliflozin propanediol [Farxiga] 10 mg tablet 10 mg PO DAILY (DME) lancets [TRUEplus Lancets] 33 gauge misc See Rx Instructions .ROUTE TID Qty: 100 Rx Instructions: As directed check BS TID (DME) lancets [FreeStyle Lancets] 28 gauge misc See Rx Instructions .ROUTE .MEDSUPPLY Qty: 100 11RF Rx Instructions: As directed three times a day (DME) FreeStyle Control Solution See Rx Instructions .ROUTE .MEDSUPPLY Qty: 1 Rx Instructions: As directed (DME) pen needle, diabetic [BD Ultra-Fine Corin Pen Needle] 32 gauge x 5/32 needle See Rx Instructions .ROUTE .MEDSUPPLY Qty: 100 3RF Rx Instructions: As directed once daily aspirin [Adult Low Dose Aspirin] 81 mg tablet,delayed release (DR/EC) 81 mg PO DAILY metoprolol succinate 50 mg tablet extended release 24 hr 50 mg PO DAILY Qty: 90 3RF pantoprazole 40 mg tablet,delayed release (DR/EC) PO DAILY insulin glargine [Lantus Solostar U-100 Insulin] 100 unit/mL (3 mL) insulin pen subcut Tradjenta 5 mg tablet PO DAILY Print Language: Peruvian
--- NOTE | 2025-01-12 14:04 | ECG_ITS ---
Test Reason : ABD PAIN Blood Pressure : */* mmHG Vent. Rate : 75 BPM Atrial Rate : 75 BPM P-R Int : 130 ms QRS Dur : 80 ms QT Int : 354 ms P-R-T Axes : 53 21 82 degrees QTcB Int : 395 ms Normal sinus rhythm Nonspecific T wave abnormality Abnormal ECG When compared with ECG of 17-Dec-2024 23:23, T wave inversion no longer evident in Anterior leads Referred By: Meena Dudley Electronically Signed By: JULIO CESAR ABDI
[2025-01-12 14:27] LABS: MANUAL DIFF FLAG NO
[2025-01-12 14:28] LABS: Basophils Percent Auto 0.4 % (0-2); Eosinophils Absolute Auto 0.1 X10*3/uL (0.0-0.4); Eosinophils Percent Auto 0.8 % (0-4); Hematocrit 37.3 % (37.0-47.0); Hemoglobin 12.3 g/dl (12.0-16.0); Imm Gran Abs Auto 0.03 X10*3/uL (0.00-0.03); Imm Gran Pct Auto 0.3 % (0.0-0.4); Lymphocytes Absolute Auto 1.5 X10*3/uL (1.2-4.9); Lymphocytes Percent Auto 13.8 % (20-40); Mean Corpuscular Hemoglobin 26.3 pg (27.0-33.0); Mean Corpuscular Volume 79.9 fL (80.0-98.0); Mean Platelet Volume 8.9 fL (9.4-12.3); Monocytes Absolute Auto 0.6 X10*3/uL (0.1-1.2); Monocytes Percent Auto 5.3 % (2-11); Neutrophils Absolute Auto 8.5 x10*3/uL (2.0-8.3); Neutrophils Percent Auto 79.4 % (45-73); Platelet Count 480 X10*3/uL (160-400); Red Blood Count 4.67 X10*6/uL (4.20-5.50); White Blood Count 10.8 X10*3/uL (4.8-10.8)
[2025-01-12 14:41] LABS: Alanine Aminotransferase 188 U/L (0-31); Albumin Level 4.3 g/dL (3.5-5.0); Alkaline Phosphatase 68 U/L (39-117); Anion Gap 13 (12-20); Aspartate Amino Transferase 120 U/L (5-31); Bilirubin Direct 0.1 mg/dL (0.0-0.5); Bilirubin Total 0.3 mg/dL (0.0-1.0); Blood Urea Nitrogen 18 mg/dL (9-16); Calcium 10.2 mg/dL (8.4-10.2); Carbon Dioxide 26 mmol/L (22-29); Chloride 107 mmol/L (96-108); Creatinine Clr Calc Pharmacy 77.4; Estimated Glomerular Filt Rate > 60; Glucose Random 207 mg/dL (60-115); Lipase 35 U/L (8-78); Potassium 5.1 mmol/L (3.3-5.1); Sodium 141 mmol/L (135-145); Total Protein 7.9 g/dL (6.5-8.0)
[2025-01-12 14:48] LABS: Troponin-I High Sensitivity 6.1 ng/L (<3.5-17.0)
[2025-01-12 14:54] LABS: Partial Thromboplastin Time 29.6 SEC (26.0-36.8)
[2025-01-12 15:05] LABS: Influenza A PCR NEGATIVE (Negative); Influenza B PCR NEGATIVE (Negative); Resp Syncy Virus RNA Qual PCR NEGATIVE (Negative); SARS COV2 PCR INHOUSE NEGATIVE (Negative)
--- OUTSIDE RECORDS SUMMARY | 2025-01-12 18:09 | XMS_ITS | Encounter Summary ---
Author Organization [employer] Address [address] [place] [address] Care Team Providers Care Hvac Sales Representative Name Role Phone Unavailable Primary Care Provider Unavailabl e Reason for Visit * Reason Comments Med Refill Encounter Details Date Type Department Care Team ([facility] st Contact Info) Description 09/10/2024 Refill [facility]S [address] [place], [place] [phone] Kimberley Cunningham, EILEEN [address] [place], [place] [phone] Depressive disorder Social History Tobacco Use Types [...] t he electric, gas, oil or water [employer] threatened to shut off services in your [...]
--- OUTSIDE RECORDS SUMMARY | 2025-01-12 18:09 | XMS_ITS | Encounter Summary ---
Author Organization [employer] Address [address] [place] [address] Care Team Providers Care Supervisor Packing Room Name Role Phone Unavailable Primary Care Provider Unavailabl e Reason for Visit * Reason Comments Med Refill Encounter Details Date Type Department Care Team (Late st Contact Info) Description 06/17/2024 Refill [facility] MEDICINE [address] [place] [address] Kimberley Cunningham FNP [address] [place] [address] Other hyperlipidemia; Type 2 diabetes mellitus with [...]
--- OUTSIDE RECORDS SUMMARY | 2025-01-12 18:09 | XMS_ITS | Encounter Summary ---
Author Organization [employer] Address [address] [place] [address] Care Team Providers Care Wooden Frame Builder Name Role Phone Unavailable Primary Care Provider Unavailabl e Reason for Visit * Reason Comments Med Refill Encounter Details Date Type Department Care Team ([facility] st Contact Info) Description 11/13/2024 Refill [facility] MEDICINE [address] [place] [address] Kimberley Cunningham FNP [address] [place] [address] Type 2 diabetes mellitus without complication, with long-term current use of insulin ([facility]) Social History Tobacco Use Types Packs/Day [...] of insulin ([facility]) documented in this encounter Additional Health Concerns Assessment Noted Time PHQ-9 Depression Total Score: 2 01/09/20 23 9:19 AM EST documented as of this encounter
--- OUTSIDE RECORDS SUMMARY | 2025-01-12 18:09 | XMS_ITS | Encounter Summary ---
Author Organization [employer] Address [address] [place] [address] Care Team Providers Care Employee Benefits Attorney Name Role Phone Unavailable Primary Care Provider Unavailabl e Reason for Visit * Reason Comments Med Refill Encounter Details Date Type Department Care Team (Late st Contact Info) Description 05/20/2024 Refill [facility] MEDICINE [address] [place] [address] Kimberley Cunningham FNP [address] [place] [address] Primary hypertension Social History Tobacco Use Types [...] t he electric, gas, oil or water [employer] threatened to shut off services in your [...]
--- OUTSIDE RECORDS SUMMARY | 2025-01-12 18:09 | XMS_ITS | Encounter Summary ---
Author Organization [employer] Address [address] [place] [address] Care Team Providers Care Lean Specialist Name Role Phone Unavailable Primary Care Provider Unavailabl e Reason for Visit * Reason Comments Med Refill Encounter Details Date Type Department Care Team (Late st Contact Info) Description 08/12/[address] [facility] MEDICINE [address] [place] [address] Kimberley Cunningham FNP [address] [place] [address] Vitamin D insufficiency Social History Tobacco Use [...] the past 12 months, has t he [employer] gas, oil or water company threatened to [...]
--- OUTSIDE RECORDS SUMMARY | 2025-01-12 18:09 | XMS_ITS | Encounter Summary ---
Author Organization [employer] Address [address] [place] [address] Care Team Providers Care Skiver Operator Name Role Phone Unavailable Primary Care Provider Unavailabl e Reason for Visit * Reason Comments Med Refill Encounter Details Date Type Department Care Team (Late st Contact Info) Description 05/21/2024 Refill [facility] MED[facility]INE [address] [place] [address] Kimberley Cunningham FNP [address] [place] [address] Primary hypertension Social History Tobacco Use Types [...] t he electric, gas, oil or water [employer] threatened to shut off services in your [...]
--- OUTSIDE RECORDS SUMMARY | 2025-01-12 18:09 | XMS_ITS | Encounter Summary ---
Author Organization [employer] Address [address] [facility] 7t [place] [address] Care Team Providers Care Outside Maintenance Worker Name Role Phone Unavailable Primary Care Provider Unavailabl e Reason for Visit * Reason Comments Med Refill Encounter Details Date Type Department Care Team ([facility] st Contact Info) Description 10/13/2024 Refill [facility] [address] [place], [place] [phone] Kimberley Cunningham, EILEEN [address] [place] [address] Type 2 diabetes mellitus without complication, with long-term current use of insulin ([facility]) Social History Tobacco Use Types Packs/Day [...] complication, with long-term current use of insulin ([facility]) documented in this encounter Additional Health Concerns Assessment Noted Time PHQ-9 Depression Total Score: 2 01/09/20 23 9:19 AM EST documented as of this encounter
--- OUTSIDE RECORDS SUMMARY | 2025-01-12 18:09 | XMS_ITS | Encounter Summary ---
Author Organization [employer] Address [address] [facility] 7t [place] [address] Care Team Providers Care Principal Product Manager Name Role Phone Unavailable Primary Care Provider Unavailabl e Reason for Visit * Reason Comments Med Refill Encounter Details Date Type Department Care Team ([facility] st Contact Info) Description 08/15/2024 Refill [facility] [address] [place], [place] [phone] Kimberley Cunningham, DREDGE LEVER OPERATOR [address] [place], [place] [phone] Hypothyroidism, unspecified type Social History Tobacco Use [...]
--- OUTSIDE RECORDS SUMMARY | 2025-01-12 18:10 | XMS_ITS | Encounter Summary ---
Author Organization [employer] Address [address] [facility] 7t [place] [address] Care Team Providers Care Furnace Brazer Name Role Phone Kimberley Cunningham Primary Care Provider [phone] Reason for Visit * Reason Comments Med Refill Encounter Details Date Type Department Care Team ([facility] st Contact Info) Description 07/26/2023 Refill [facility] [address] [place] [address] Kimberley Cunningham FNP [address] [place] [address] Depressive disorder Social History Tobacco Use Types [...] documented as of this encounter Care Teams Furnace Brazer Relationship Specialty Start Date End Date Kimberley Cunningham FNP [address] [place] [address] PCP - General Family Medicine 07/23/22 03/20/24 documented as of this encounter
--- OUTSIDE RECORDS SUMMARY | 2025-01-12 18:10 | XMS_ITS | Encounter Summary ---
Author Organization [employer] Address [address] [facility] 7t [place] [address] Care Team Providers Care Physical Optics Teacher Name Role Phone Kimberley Cunningham LOOM DOFFER Primary Care Provider Reason for Visit * Reason Comments Med Refill Encounter Details Date Type Department Care Team ([facility] st Contact Info) Description 09/08/2023 Refill [facility] [address] [place], [place] [phone] Jojo Washburn MD [address] [place], [place] [phone] Depressive disorder Social History Tobacco Use Types [...] documented as of this encounter Care Teams Physical Optics Teacher Relationship Specialty Start Date End Date Kimberley Cunningham FNP [address] [place] [id number] PCP - General Family Medicine 07/23/22 03/20/24 documented as of this encounter
--- OUTSIDE RECORDS SUMMARY | 2025-01-12 18:10 | XMS_ITS | Encounter Summary ---
Author Organization [employer] [facility] Address [address] [facility] 7t [place] [address] Care Team Providers Care Superintendent Warehouse Name Role Phone Kimberley Cunningham Primary Care Provider [phone] Encounter Details Date Type Department Care Team (Latest Contact Info) Description 01/20/2021 Abstract [facility] CONVERSIONS Dental, Provider, DDS Social [...] on filedocumented in this encounter Care Teams Superintendent Warehouse Relationship Specialty Start Date End Date Kimberley Cunningham FNP [address] [place] [address] PCP - General Family Medicine 07/23/22 03/20/24 documented as of this encounter
--- OUTSIDE RECORDS SUMMARY | 2025-01-12 18:10 | XMS_ITS | Encounter Summary ---
Author Organization [employer] [facility] Address [address] [facility] 7t [place] [address] Care Team Providers Care Motor Overhauler Name Role Phone Kimberley Cunningham Primary Care Provider [phone] Encounter Details Date Type Department Care Team (Latest Contact Info) Description 01/07/2020 Abstract [facility] CONVERSIONS Dental, Provider, DDS Social History [...] on filedocumented in this encounter Care Teams Motor Overhauler Relationship Specialty Start Date End Date Kimberley Cunningham FNP [address] [place] [address] PCP - General Family Medicine 07/23/22 03/20/24 documented as of this encounter
--- OUTSIDE RECORDS SUMMARY | 2025-01-12 18:10 | XMS_ITS | Encounter Summary ---
Author Organization [employer] Address [address] [facility] [address] [place] [address] Care Team Providers Care Oracle Agile Pl[employer] Consultant Name Role Phone Unavailable Primary Care Provider Unavailabl e Reason for Visit * Reason Comments Med Refill Encounter Details Date Type Department Care Team (Late st Contact Info) Description 01/12/2025 Refill [facility] [address] [place] [address] Kimberley Cunningham FNP [address] [place] [address] Type 2 diabetes mellitus with hyperglycemia (CMS/HCC) [...] Visit Diagnoses Diagnosis Type 2 diabetes mellitus with hyperglycemia (CMS/HCC) documented in this encounter Additional Health Concerns Assessment Noted Time PHQ-9 Depression Total Score: 2 01/09/20 23 9:19 AM EST documented as of this encounter
--- OUTSIDE RECORDS SUMMARY | 2025-01-12 18:10 | XMS_ITS | Encounter Summary ---
Author Organization [employer] Address [address] [facility] [address] 7[address] [place] [address] Care Team Providers Care Pre Planning Advisor Name Role Phone Kimberley Cunningham RESOURCE SPECIALIST TEACHER Primary Care Provider [phone] Encounter Details Date Type Department Care Team (Late st Contact Info) Description 10/12/2023 Abstract [facility] MEDICINE [address] [place], [place] [phone] Sandra Villareal Social History Tobacco Use Types [...] documented as of this encounter Care Teams Pre Planning Advisor Relationship Specialty Start Date End Date Kimberley Cunningham FNP [address] [place] [id number] PCP - General Family Medicine 07/23/22 03/20/24 documented as of this encounter
[2025-01-12] MEDS: 0.9 % Sodium Chloride 1,000 ML 999 ML IV (20:07)
[2025-01-12] MEDS: iohexoL 350 MG/ML 100 ML INFUS..BTL 85 ML IV (20:14)
--- NOTE | 2025-01-12 20:38 | PC.NURSE ---
PT refused meds said she doesn't have any abdominal pain anymore and that it's just gas.
[2025-01-12 21:35] VITALS: BP 178/80; PULSE 74; RESP 20; TEMP 36.7; O2SAT 99
[2025-01-12 21:53] LABS: Glucose, Whole Blood 125 mg/dL (60-115)
[2025-01-12 22:29] VITALS: BP 178/80; PULSE 74; RESP 20; TEMP 36.7; O2SAT 99
== END 2025-01-12 22:29 | disposition home or self-care (01) ==
PROVIDERS: Physician Assistant Medical; Emergency Provider Emergency Medicine; PCP Internal Medicine
DX: R10.2 Pelvic and perineal pain (principal); R10.13 Epigastric pain; R11.0 Nausea; I25.2 Old myocardial infarction; I25.10 Atherosclerotic heart disease of native coronary artery without angina pectoris; R79.89 Other specified abnormal findings of blood chemistry; R07.89 Other chest pain; M25.512 Pain in left shoulder; M33.10 Other dermatomyositis, organ involvement unspecified; E11.9 Type 2 diabetes mellitus without complications; I10 Essential (primary) hypertension; Z03.818 Encounter for observation for suspected exposure to other biological agents ruled out; Z79.4 Long term (current) use of insulin; Z79.899 Other long term (current) drug therapy
CPT/HCPCS: 0241U; 74177; 80048; 80076; 82550; 82947; 83690; 83735; 84484; 85025; 85730; 93005; 96360; 99284; Q9967

== ENCOUNTER → 2025-01-12 14:04 | Outpatient (BNV) | payer OTHER, SELFPAY | PROVIDERS: Emergency Provider Emergency Medicine; PCP Internal Medicine; Visit Provider Internal Medicine | DX: R94.31 Abnormal electrocardiogram [ECG] [EKG] (principal); R10.9 Unspecified abdominal pain | CPT/HCPCS: 93010 ==

== ENCOUNTER → 2025-01-12 19:10 | Outpatient (BNV) | payer OTHER, SELFPAY | PROVIDERS: Emergency Provider Emergency Medicine; PCP Internal Medicine; Visit Provider Radiology Diagnostic Radiology | DX: R10.10 Upper abdominal pain, unspecified (principal) | CPT/HCPCS: 74177 ==

== ENCOUNTER 2025-01-17 10:40 | Outpatient (AMB) | payer OTHER, SELFPAY ==
--- NOTE | 2025-01-17 10:58 | AM.OFFWIN_ITS ---
Intake Vital Signs 01/17/25 11:09 Height 5 ft 4 in Weight 132 lb BMI 22.7 BP 122/68 Blood Pressure Location Lt brachial Position Sitting Respiration 16 Pulse 75 Pulse Source Pulse Oximeter Temp 98.2 F Temp Source Oral Pulse Oximetry (%) 98 Oxygen Delivery Method Room Air Intake Visit Reasons: EP-palpitations, chest pain Intake Note: Pt is here today c/o palpitations and chest pain Patient Tobacco Use Status: Never used Tobacco Allergies penicillin V Allergy (Unknown, Verified 01/17/25 11:12) hives Penicillins [PENICILLINS] Allergy (Unknown, Verified 01/17/25 11:12) RASH,DIZZINESS HPI EP-palpitations, chest pain HPI Details Patient is a 64-year-old Azeri-speaking female who presents with family member at the walk-in clinic with persistent abdominal pain, that is now radiating into her chest consistently and is associated with intermittent left upper chest wall stabbing sensations and persistent nausea. She has also been having palpitations that she mostly experiences at night, and does not seem to notice as much during the day. She has a history of STEMI with an LAD PCI placed just last October at [facility]. She went to [facility] 5 days ago when the pain was beginning, and had a abdominal CT scan which showed possible colitis but was overall unremarkable. She did report at that time having had 1 episode of the chest pain. She had an elevated CPK also, which apparently was trending down at that point, and was attributed to dermatomyositis history. She has a pending muscle biopsy procedure. She denies current shortness of breath, but does state that when she was in the shower earlier this morning, she felt mildly short of breath. She has no cough or respiratory symptoms, apparent weakness or dizziness, or other significant associated symptoms currently. ON LICENSE OF [facility] Medical History Dermatomyositis Elevated CK CAD (coronary artery disease) STEMI (ST elevation myocardial infarction) GERD (gastroesophageal reflux disease) Physical exam, pre-employment Sebaceous cyst RUQ pain Cervical polyp Muscle strain of right scapular region H. pylori infection Overweight (BMI 25.0-29.9) Hypertension Hypothyroidism jail (current) use of insulin Diabetes type 2, uncontrolled Surgical History History of coronary artery stent placement Hx of tubal ligation Hx of cholecystectomy Family History Unknown No problems noted. 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 Cognitive needs: No Hearing needs: No Vision needs: No Female Reproductive History Menstrual Age of Menarche: 12 Review of Systems Const All systems reviewed & are unremarkable except as noted in HPI and below Physical Exam Vital Signs: Last Vital Signs Temp 98.2 F 01/17/25 11:09 Pulse 75 01/17/25 11:09 Resp 16 01/17/25 11:09 BP 122/68 01/17/25 11:09 Pulse Ox 98 01/17/25 11:09 Oxygen Delivery Method Room Air 01/17/25 11:09 BMI result Body Mass Index 22.7 Const General: cooperative, healthy appearing, comfortable, no acute distress, alert, awake, Physically active and well groomed; No diaphoretic, ill appearing, intoxicated appearing, poor hygiene or tired appearing Nutritional Appearance: average body habitus Orientation/consciousness: patient oriented x3 Limitations: no limitations and other limitations (Language barrier) Chest Chest palpation & inspection: abnormal palpation of chest wall and tenderness Resp Effort & Inspection: normal respiratory effort, able to speak in complete sentences, no audible wheezes, no cough, no grunting, not labored, no nasal flaring, no retractions and symmetric chest movement Auscultation: clear to auscultation bilaterally, no crackles, no rales, no rhonchi, no wheezes, lung sounds not diminished and No rub present Cardio Palpation: normal PMI Rate: regular rate Rhythm: regular rhythm Heart sounds: S1 normal heart sound present and S2 normal heart sound present Skin Other: Good color, warm and dry Neuro General: patient oriented x3 Psych Appearance: grossly normal Mental Status: mental status grossly normal Speech and movement: Normal speech and movement present Affect: normal affect Attitude: cooperative Thought process: Normal thought process present Insight: Good insight present (Psych) Judgement: Good judgement present (Psych) Assessment & Plan Assessment & Plan (1) Chest pain: Code(s): R07.9 - Chest pain, unspecified Qualifiers: Chest pain type: other chest pain Qualified Code(s): R07.89 - Other chest pain Plan: Patient is a 64-year-old Azeri-speaking female with history of STEMI and LAD PCI placement who presents with family member at the walk-in clinic with persistent abdominal pain, that is now radiating into her chest consistently and is associated with intermittent left upper chest wall stabbing sensations and persistent nausea. She is also having associated palpitations but mostly at night. Due to her presentation EKG with nonspecific T-wave changes, and due to intermittent chest wall pain and nausea, I advised that she go back to the emergency department to have a follow-up cardiac evaluation, including repeat cardiac markers. She was amenable to this and was transported via ambulance to [facility]. Expect to be called in. Coding Level of Care Code Est Pt Level 4 (66743) Diagnoses Other chest pain R07.89 Chest pain type: other chest pain
[2025-01-17 11:09] VITALS: BP 122/68; PULSE 75; RESP 16; TEMP 36.8; O2SAT 98; BMI 22.7
== END 2025-01-17 11:58 | disposition home or self-care (01) ==
LOC: HO.HMCWIC 10:40
PROVIDERS: PCP Internal Medicine; Visit Provider Physician Assistant Medical
DX: R07.89 Other chest pain (principal)

== ENCOUNTER → 2025-01-17 10:40 | Outpatient (BNVA) | payer OTHER, SELFPAY | PROVIDERS: PCP Internal Medicine; Visit Provider Physician Assistant Medical | DX: R07.89 Other chest pain (principal) | CPT/HCPCS: 93005; 99212 ==

== ENCOUNTER 2025-01-21 13:30 | Outpatient (RCR) | payer OTHER, SELFPAY ==
[2025-01-14 14:19] LABS: Glucose, Whole Blood 187 mg/dL (60-115)
== END 2025-01-30 12:02 | disposition home or self-care (01) ==
LOC: HO.CR 13:30
PROVIDERS: PCP Internal Medicine; Visit Provider Internal Medicine Cardiovascular Disease
DX: I21.3 ST elevation (STEMI) myocardial infarction of unspecified site (principal)
CPT/HCPCS: 82947; 93798

== ENCOUNTER 2025-01-26 10:27 | Outpatient (AMB) | payer OTHER, SELFPAY ==
--- NOTE | 2025-01-26 10:44 | A.OFFPC_ITS ---
Vital Signs 01/26/25 10:45 Height 5 ft 4 in Weight 122 lb 8 oz BMI 21.0 BP 110/60 Blood Pressure Location Lt brachial Position Sitting Pulse 97 Pulse Source Pulse Oximeter Temp 97.1 F Temp Source Temporal Artery Scan Pulse Oximetry (%) 98 Oxygen Delivery Method Room Air Intake Visit Reasons: HDF Intake Note: Patient is here for hospital discharge follow up. Patient was discharged from [ hospital name] on [date]. Oracle Adf Consultant Required: Yes Oracle Adf Consultant Language: Leasing Manager Name: Leann (Daughter) Information Interpreted: non-clinical & clinical (pt decline market development director service, prefer daughter to translate) Machinist Set Up: Not Required per policy Accompanied by: Self / Same As Patient Allergies penicillin V Allergy (Unknown, Verified 01/26/25 10:50) hives Penicillins [PENICILLINS] Allergy (Unknown, Verified 01/26/25 10:50) RASH,DIZZINESS Medication List - Last Reconciled 01/26/25 by Madison Hayes PA-C aspirin (Adult Low Dose Aspirin) 81 mg PO DAILY atorvastatin 80 mg PO BEDTIME blood glucose control high,low (FreeStyle Control solution) As directed [blood pessure cuff As directed] blood sugar diagnostic (FreeStyle Lite Strips) 3 times a day blood-glucose meter (FreeStyle Lite Meter kit) As directed TID cholecalciferol (vitamin D3) 50 mcg PO DAILY dapagliflozin propanediol (Farxiga) 10 mg PO DAILY ferrous sulfate 325 mg PO BID fluoxetine 10 mg PO DAILY insulin glargine (Lantus Solostar U-100 Insulin) 15 units (0.15 mL) subcut DAILY 30 days isosorbide mononitrate ER 30 mg PO DAILY lancets (TRUEplus Lancets) As directed check BS TID lancets (FreeStyle Lancets) As directed three times a day levothyroxine 150 mcg PO DAILY@0600 linagliptin (Tradjenta) mg PO DAILY losartan 25 mg PO DAILY melatonin 5 mg PO BEDTIME metformin 1,000 mg PO BID metoprolol succinate ER 50 mg PO DAILY pantoprazole 40 mg PO DAILY pantoprazole 40 mg PO QAM pen needle, diabetic (BD Corin 2nd Gen Pen Needle) once a day pen needle, diabetic (BD Ultra-Fine Corin Pen Needle) As directed once daily pen needle, diabetic (BD Ultra-Fine Corin Pen Needle) As directed ticagrelor (Brilinta) 90 mg PO BID Tobacco use date assessed: 01/26/25 Dental Screening Dental Screen Date: 12/02/24 HPI HDF HPI Details 64-year-old female with past medical his tory of hypothyroidism, hypertension, diabetes mellitus, hypercholesterolemia, GERD, coronary artery disease, dermatomyositis last seen 12/10/[address] Garcia coming in for hospital discharge follow up. In review of the notes, patient was [place] [facility] 01/12/2025 for 3 days of upper abdominal pain CT scan showing possible colitis. ED recommended following up with general surgeon for muscle biopsy and advised clear liquid diet for several days and follow up with PCP. Patient was also seen in walk-in clinic 01/17/2025 for chest pain EKG was abnormal and patient was transferred to hospital via ambulance. Presenting with abdominal pain and diarrhea. She reports abdominal discomfort extending from the mid-abdomen which has been present for almost a month. The patient is experiencing significant diarrhea with no reported hematochezia. Notably, she has sustained two myocardial infarctions within a short span, first in October and again in December, necessitating three stent placements overall. Gastrointestinal exploration indicated inflammation, previously advising a clear liquid diet. Compliance with dietary recommendations has been inconsistent due to unclear directives from previous encounters. The burning sensation noted is associated with exhaustive reflux that is undertreated despite pantoprazole administration. 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 [facility] Medical History (Updated 01/26/25 @ 12:51 by Madison Hayes PA-C) Dermatomyositis Elevated CK CAD (coronary artery disease) STEMI (ST elevation myocardial infarction) GERD (gastroesophageal reflux disease) Physical exam, pre-employment Sebaceous cyst RUQ pain Cervical polyp Muscle strain of right scapular region H. pylori infection Overweight (BMI 25.0-29.9) Hypertension Hypothyroidism manager intermediate (current) use of insulin Diabetes type 2, uncontrolled Surgical History (Updated 01/26/25 @ 10:53 by MIGDALIA Donohue) History of coronary artery stent placement Hx of tubal ligation Hx of cholecystectomy Family History Unknown No problems noted. 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 Deepak Woodard, Netta Chairez, Juan R Tovar and colleagues, with an educational kimi from [employer]. Review of Systems Const Denies body aches, Denies chills, Denies fever(s), Denies headache(s) and Denies poor appetite Eyes Reports no additional complaints ENT Denies dysphagia, Denies dizziness, Denies headache(s) and Denies odynophagia Card Denies chest pain, Denies syncope, Denies edema, Denies irregular heart rhythm, Denies lightheadedness and Denies dyspnea Resp Denies cough and Denies dyspnea GI Denies abdominal pain, Denies constipation, Denies dysphagia, Denies diarrhea, Denies nausea, Denies odynophagia and Denies vomiting Reports no additional complaints Musc Reports no additional complaints and Denies abnormal gait Skin/Breast Reports system reviewed and no additional complaints, except as documented Neuro Denies abnormal gait, Denies dizziness, Denies syncope and Denies headache(s) Psych Reports no additional complaints Physical exam (Primary Care) Vital Signs: Last Vital Signs Temp 97.1 F 01/26/25 10:45 Pulse 97 01/26/25 10:45 BP 110/60 01/26/25 10:45 Pulse Ox 98 01/26/25 10:45 Oxygen Delivery Method Room Air 01/26/25 10:45 BMI result Body Mass Index 21.0 Tobacco/Smoking Status: Tobacco use Status Tobacco use date assessed 01/26/25 01/26/25 10:46 Patient Tobacco Use Status Never used Tobacco 01/26/25 10:46 Tobacco use type Cigarette 01/26/25 10:46 e-Cigarette/Vaping Use Never Used 01/26/25 10:46 Thrive Assessment: Date of Thrive Assessment Date Thrive assessed 12/04/24 01/26/25 10:46 Const General: cooperative, healthy appearing, comfortable and no acute distress Orientation/consciousness: patient oriented x3 HENMT Head: Yes normocephalic Ears: hearing grossly normal bilaterally General nose exam: Normal external nose present Eyes General: appearance normal, both eyes and all related structures Conjunctivae: conjunctivae normal Neck Neck: Yes full ROM and Yes no lymphadenopathy Resp Effort & Inspection: normal respiratory effort Auscultation: clear to auscultation bilaterally, no crackles, no rales, no rhonchi and no wheezes Cardio Rate: regular rate Rhythm: regular rhythm GI Palpation (GI): Soft to palpation, not firm, Tenderness to palpation present (GI) in the epigastrum, no guarding, not rigid, no pulsatile masses and No Rebound tenderness present Skin General skin exam: no rashes or lesions noted Neuro General: patient oriented x3 Gait exam (Neuro): Normal gait present Extrem General: Yes normal to inspection, Yes full ROM and No edema Psych Affect: normal affect Attitude: cooperative Insight: Good insight present (Psych) Judgement: Good judgement present (Psych) Office Procedures EKG Details: Normal Sinus rhythm unchanged from last EKG. Without ST elevation or T wave abnormality. Reviewed by myself and Dr. Garcia [id number], Complete Coding Level of Care Code Est Pt Level 4 (82205) Diagnoses Dermatomyositis M33.13 Coronary artery disease without angina pectoris, unspecified vessel or lesion type, unspecified whether yuhaaviatam or transplanted heart I25.10 Coronary Disease-Associated Artery/Lesion type: unspecified vessel or lesion type [place] vs. transplanted heart: unspecified whether yuhaaviatam or transplanted heart Associated angina: without angina Non-traumatic rhabdomyolysis M62.82 Rhabdomyolysis type: non-traumatic Hypercholesterolemia E78.00 Type 2 diabetes mellitus with hyperglycemia, with long-term current use of insulin E11.65; Z79.4 Diabetes mellitus manager intermediate insulin use: with manager intermediate use Essential hypertension I10 Hypertension type: essential hypertension Overweight (BMI 25.0-29.9) E66.3 Epigastric pain R10.13 Gastroesophageal reflux disease without esophagitis K21.9 Esophagitis presence: without esophagitis Anxiety F41.9 CPT Codes EKG - CPT: 30696-[id number], Complete ([id number]) Assessment & Plan Assessment & Plan (1) Dermatomyositis: Code(s): M33.13 - Other dermatomyositis without myopathy Category: Medical Plan: Patient has upper extremity EMG coming up later this month and follow up with R heumatology afterwards. (2) CAD (coronary artery disease): Comment: 10/2024 Code(s): I25.10 - Atherosclerotic heart disease of yuhaaviatam coronary artery without angina pectoris Category: Medical Qualifiers: Coronary Disease-Associated Artery/Lesion type: unspecified vessel or lesion type [place] vs. transplanted heart: unspecified whether yuhaaviatam or transplanted heart Associated angina: without angina Qualified Code(s): I25.10 - Atherosclerotic heart disease of yuhaaviatam coronary artery without angina pectoris Plan: Advised good control of blood pressure, cholesterol and diabetes. On aspirin. (3) Rhabdomyolysis: Code(s): M62.82 - Rhabdomyolysis Category: Medical Qualifiers: Rhabdomyolysis type: non-traumatic Qualified Code(s): M62.82 - Rhabdomyolysis Plan: Continue to follow up with Rheumatology. (4) Hypercholesterolemia: Code(s): E78.00 - Pure hypercholesterolemia, unspecified Category: Medical Plan: Avoid foods that are high in cholesterol such as red meat, fried foods, eggs and baked goods. Triglyceride goal of less than 150 and LDL goal of less than 70. Not on medical management (5) Type 2 diabetes mellitus with hyperglycemia: Comment: [facility] Code(s): E11.65 - Type 2 diabetes mellitus with hyperglycemia Category: Medical Qualifiers: Diabetes mellitus manager intermediate insulin use: with manager intermediate use Qualified Code(s): E11.65 - Type 2 diabetes mellitus with hyperglycemia; Z79.4 - manager intermediate (current) use of insulin Plan: Decrease the amount of carbohydrates such as pasta, bread, rice, and potatoes and limit the amount of sweets. Although fruits are generally healthy they should be eaten in moderation as they are still high in sugar. Hemoglobin A1c goal of less than 7%. (6) Hypertension: Code(s): I10 - Essential (primary) hypertension Category: Medical Qualifiers: Hypertension type: essential hypertension Qualified Code(s): I10 - Essential (primary) hypertension Plan: Continue on current blood pressure medication. Avoid salt intake and encourage healthy diet and regular exercise. (7) Overweight (BMI 25.0-29.9): Code(s): E66.3 - Overweight Category: Medical Plan: Healthy diet and regular exercise is encouraged. (8) Epigastric pain: Code(s): R10.13 - Epigastric pain Category: Medical Plan: The management plan involves addressing the patient's abdominal pain and diarrhea within the context of her history of myocardial infarction and gastroesophageal reflux disease. Following electrocardiographic assessment which was unremarkable, attention is drawn to optimizing her current medication, specifically, increasing pantoprazole dosing for enhanced reflux control. Anticipated gastroenterological follow-up will explore persisting gastrointestinal distress, aligning with evaluations for potential ulceration or other intraluminal pathology. (9) GERD (gastroesophageal reflux disease): Code(s): K21.9 - Gastro-esophageal reflux disease without esophagitis Category: Medical Qualifiers: Esophagitis presence: without esophagitis Qualified Code(s): K21.9 - Gastro-esophageal reflux disease without esophagitis Plan: Avoid trigger foods such as citrus, tomato products, soda, caffeine, spicy foods and other foods that may be irritating to your stomach. Avoid laying flat 3-4 hours after eating and elevate the head of the bed 30 degrees to prevent acid from moving into the esophagus. Continue on Pantoprazole 20 (10) Anxiety: Code(s): F41.9 - Anxiety disorder, unspecified Category: Medical Plan: For anxiety management, alprazolam is cautiously prescribed, emphasizing its controlled use during significant anxiety episodes. Follow up with Dr. Garcia later this month. Plan Patient was informed and verbally consented to the use of an ambient scribe for clinic note documentation during this visit. This note was constructed using voice recognition software. While every effort has been made to ensure accuracy and adoption worker, still areas may have been included sometimes these areas may affect the content or meeting of the given symptoms. Total time spent caring for the patient today was 30 minutes. This includes time spent before the visit reviewing the chart, time spent during the visit, and time spent after the visit and documentation. Orders: Orders AMB EKG-In Office Today I25.10 - Atherosclerotic heart disease of yuhaaviatam coronary artery without angina pectoris Medications: New alprazolam 0.25 mg PO DAILY PRN 15 tabs 0RF anxiety
[2025-01-26 10:45] VITALS: BP 110/60; PULSE 97; TEMP 36.2; O2SAT 98; BMI 21.0
--- OUTSIDE RECORDS SUMMARY | 2025-01-26 12:10 | XMS_ITS | Encounter Summary ---
Author Organization [employer] [facility] Address [address] 7t [place] [address] Care Team Providers Care Construction Technician Name Role Phone Kimberley Cunningham Primary Care Provider [phone] Encounter Details Date Type Department Care Team (Latest Contact Info) Description 01/20/2021 Abstract [facility] CONVERSIONS Dental, Provider, DDS Social [...] on filedocumented in this encounter Care Teams Construction Technician Relationship Specialty Start Date End Date Kimberley Cunningham FNP [address] [place] [address] PCP - General Family Medicine 07/23/22 03/20/24 documented as of this encounter
--- OUTSIDE RECORDS SUMMARY | 2025-01-26 12:10 | XMS_ITS | Encounter Summary ---
Author Organization [employer] Address [address] [place] [address] Care Team Providers Care Hypercil Core Transformer Assembler Name Role Phone Unavailable Primary Care Provider Unavailabl e Reason for Visit * Reason Comments Med Refill Encounter Details Date Type Department Care Team ([facility] st Contact Info) Description 11/13/2024 Refill [facility] MED[facility]INE [address] [place] [address] Kimberley Cunningham FNP [address] [place] [address] Type 2 diabetes mellitus without complication, with long-term current use of insulin ([facility]) Social History Tobacco Use Types [...] of insulin ([facility]) documented in this encounter Additional Health Concerns Assessment Noted Time PHQ-9 Depression Total Score: 2 01/09/20 23 9:19 AM EST documented as of this encounter
--- OUTSIDE RECORDS SUMMARY | 2025-01-26 12:10 | XMS_ITS | Clinical Summary ---
Author Organization [employer] Address [address] [place] [address] Care Team Providers Care Improvement Intern Name Role Phone Unavailable Primary Care Provider [...] e 2 diabetes mellitus treated with insulin ([facility]) INJECT 8 UNITS SUBCUTANEOUSLY ONCE DAILY IN THE EVENING 15 mL 3 11/01/20 23 Active linaGLIPtin (Tradjenta) 5 MG tabletIndications: Type 2 diabetes mellitus without complication, with long-term current use of insulin ([facility]) TAKE 1 TABLET BY MOUTH EVERYDAY AT [...] 10 MGIndications:Type 2 diabetes mellitus with hyperglycemia ([facility]) TAKE 1 TABLET BY MOUTH EVERYDAY AT [...] complication, with long-term current use of insulin ([facility]) TAKE 1 TABLET BY MOUTH TWICE DAILY AT NOON AND IN THE EVENING 180 tablet 1 03/20/20 24 Active lisinopril 20 MG tabletIndications: Primary hypertension TAKE 1 TABLET BY MOUTH AT BEDTIME 90 tablet 2 05/22/20 24 Active FREESTYLE LITE test stripIndications:T ype 2 diabetes mellitus with hyperglycemia ([facility]/HCC) TEST BLOOD SUGAR 3 TIMES A DAY [...] -Pt in the process of re-establishing with [facility] Endo -Per last available [...] Encounters Date Type Department Care Team Description 01/16/2025 Refill [facility] MEDICINE [address] [place] [address] Kimberley Cunningham FNP Type 2 diabetes mellitus with hyperglycemia ([facility]) 01/12/2025 Refill [facility] MED[facility]INE [address] [place] [address] Kimberley Cunningham FNP Type 2 diabetes mellitus with hyperglycemia ([facility]) 11/13/2024 Refill [facility] [address] [place] [address] Kimberley Cunningham FNP Type 2 diabetes mellitus without complication, with long-term current use of insulin ([facility]) from Last 3 Months Immunizations Name Administration [...] is your housing situation today? I have francobruce castro 09/10/[address] you [...] Smear 03/14/2024 03/14/2019 Diabetes: Hemoglobin A1C 05/01/2024 03 024, 12/25/2022, 07/13/2021, Additional history exists COVID-19 [...] complication, with long-term current use of insulin ([facility]) MAMMOGRAM GENERIC Routine 10/05/2022 10: 20 AM EST LIPID PANEL, STANDARD Routine 10/04/2022 8:50 AM EST [facility] HISTORICAL MICROALBUMIN, RANDOM Routine 07/13/2021 10:40 AM [...] Legacy Procedure: Mammography Report 1 Kimberley Cunningham [facility] IMG BI PROCEDURES Final Result * LIPID [...] ?? Jesús ROBERTS et al. KORTNEY. 2013;310(19): 9775-5720 ?? ([email or web address]) Non-HDL Cholesterol 87 <130 mg/dL (calc) [facility] Comment: For patients with diabetes plus 1 major ASCVD risk ?? factor, treating to a non-HDL-C goal of <100 mg/dL ?? (LDL-C of <70 mg/dL) is considered a therapeutic ?? option. Triglycerides 91 <150 mg/dL [facility]VE [facility] 10/04/2022 8:50 AM EST Kimberley Cunningham [facility] LAB BLOOD ORDERABLES Final Res ult [facility] * MICROALBUMIN, RANDOM (07/13/2021 10:40 AM EDT) Creatinine Urine 30.03 mg/dL [facility] Microalbum/Creati nine Ratio Ur TNP ug/mg cr [facility] Comment: Unable to calculate albumin/creatinine ratio due to low microalbumin or creatinine result. Microalbumin Urine <5.0 mg/L [facility] 07/13/2021 10:4 0 AM EDT Historical Provider HISTORICAL/NON ORDERABLE LABS Final Result [facility] [address] * Hm Pap Smear (03/14/2019) Pap Negative for intraephithelial lesion or malignancy Negative for intraephithelial lesion or malignancy, Other HPV Not Detected Undetected, Indeterminate, Quantitative, Not Detected Historical Provider HEALTH MAINTENANCE Final Result * Colonoscopy (10/22/2017) Colonoscopy Normal Normal Narrative Sandra Villareal - 10/22/2017 Repeat in 10 years Historical Provider HEALTH MAINTENANCE Final Result from Last 3 Months or Most Recently Relevant to Health Maintenance Insurance [facility] MEDICAID STAND ADULT
--- OUTSIDE RECORDS SUMMARY | 2025-01-26 12:10 | XMS_ITS | Encounter Summary ---
Author Organization [employer] Address [address] [place] [address] Care Team Providers Care Big Data Hadoop Developer Name Role Phone Unavailable Primary Care Provider Unavailabl e Reason for Visit * Reason Comments Med Refill Encounter Details Date Type Department Care Team (Late st Contact Info) Description 05/21/2024 Refill [facility] [address] [place] [address] Kimberley Cnuningham FNP [address] [place] [address] Primary hypertension Social History Tobacco Use Types [...] t he electric, gas, oil or water [employer] threatened to shut off services in your [...]
--- OUTSIDE RECORDS SUMMARY | 2025-01-26 12:10 | XMS_ITS | Encounter Summary ---
Author Organization [employer] Address [address] [facility] [address] [facility] [address] [place] [address] Care Team Providers Care Lay Up Operator Name Role Phone Kimberley Cunningham CLOTH INSPECTOR Primary Care Provider [phone] Reason for Visit * Reason Comments Med Refill Encounter Details Date Type Department Care Team ([facility] st Contact Info) Description 09/08/2023 Refill [facility]INE [address] [place], [place] [phone] Jojo Washburn MD [address] [place], [place] [phone] Depressive disorder Social History Tobacco Use Types [...] documented as of this encounter Care Teams Lay Up Operator Relationship Specialty Start Date End Date Kimberley Cunningham FNP [address] [place] [address] PCP - General Family Medicine 07/23/22 03/20/24 documented as of this encounter
--- OUTSIDE RECORDS SUMMARY | 2025-01-26 12:10 | XMS_ITS | Encounter Summary ---
Author Organization [employer] Address [address] [place] [address] Care Team Providers Care Chief Hydroelectric Station Operator Name Role Phone Unavailable Primary Care Provider Unavailabl e Reason for Visit * Reason Comments Med Refill Encounter Details Date Type Department Care Team (Late st Contact Info) Description 01/12/2025 Refill [facility] MEDICINE [address] [place] [address] Kibmerley Cunningham FNP [address] [place] [address] Type 2 diabetes mellitus with hyperglycemia (CMS/HCC) [...]
--- OUTSIDE RECORDS SUMMARY | 2025-01-26 12:10 | XMS_ITS | Encounter Summary ---
Author Organization [employer] [facility] Address [address] [place] [address] Care Team Providers Care Reclamation Kettle Tender Name Role Phone Kimberley Cunningham Primary Care Provider [phone] Encounter Details Date Type Department Care Team (Latest Contact Info) Description 01/07/2020 Abstract [facility] CONVERSIONS Dental, Provider, DDS Social History [...] on filedocumented in this encounter Care Teams Reclamation Kettle Tender Relationship Specialty Start Date End Date Kimberley Cunningham FNP [address] [place] [address] PCP - General Family Medicine 07/23/22 03/20/24 documented as of this encounter
--- OUTSIDE RECORDS SUMMARY | 2025-01-26 12:10 | XMS_ITS | Encounter Summary ---
Author Organization [employer] Address [address] [facility] [address] [place] [address] Care Team Providers Care Remote Sensing Advisor Name Role Phone Kimberley Cunningham Primary Care Provider [phone] Reason for Visit * Reason Comments Med Refill Encounter Details Date Type Department Care Team ([facility] st Contact Info) Description 07/26/2023 Refill [facility] [address] [place] [address] Kimberley Cunningham FNP [address] [place] [address] Depressive disorder Social History Tobacco Use Types [...] documented as of this encounter Care Teams Remote Sensing Advisor Relationship Specialty Start Date End Date Kimberley Cunningham FNP [address] [place] [address] PCP - General Family Medicine 07/23/22 03/20/24 documented as of this encounter
--- OUTSIDE RECORDS SUMMARY | 2025-01-26 12:10 | XMS_ITS | Encounter Summary ---
Author Organization [employer] Address [address] [facility] [place] [address] Care Team Providers Care Nail Machine Operator Name Role Phone Unavailable Primary Care Provider Unavailabl e Reason for Visit * Reason Comments Med Refill Encounter Details Date Type Department Care Team ([facility] st Contact Info) Description 09/10/2024 Refill [facility] [address] [place], [place] [phone] Kimberley Cunningham, EILEEN [address] [place], [place] [phone] Depressive disorder Social History Tobacco Use Types [...] t he electric, gas, oil or water [employer] threatened to shut off services in your [...]
--- OUTSIDE RECORDS SUMMARY | 2025-01-26 12:10 | XMS_ITS | Encounter Summary ---
Author Organization [employer] Address [address] [facility] [address] 7[address] [place] [address] Care Team Providers Care Bottoming Room Inspector Name Role Phone Unavailable Primary Care Provider Unavailabl e Reason for Visit * Reason Comments Med Refill Encounter Details Date Type Department Care Team (Late st Contact Info) Description 08/12/2024 Refill [facility] [address] [place] [address] Kimberley Cunningham FNP [address] [place] [address] Vitamin D insufficiency Social History Tobacco Use [...] the past 12 months, has t he [employer], gas, oil or water company threatened to [...]
--- OUTSIDE RECORDS SUMMARY | 2025-01-26 12:10 | XMS_ITS | Encounter Summary ---
Author Organization [employer] Address [address] [facility] [address] 7[address] [place] [address] Care Team Providers Care Nurse Transplant Name Role Phone Unavailable Primary Care Provider Unavailabl e Reason for Visit * Reason Comments Med Refill Encounter Details Date Type Department Care Team ([facility] st Contact Info) Description 08/15/2024 Refill [facility] [address] [place], [place] [phone] Kimberley Cunningham, SHUTDOWN PLANNER [address] [place], [place] [phone] Hypothyroidism, unspecified type Social History Tobacco Use [...]
--- OUTSIDE RECORDS SUMMARY | 2025-01-26 12:10 | XMS_ITS | Encounter Summary ---
Author Organization [employer] Address [address] [facility] [address] 7[address] [place] [address] Care Team Providers Care Knife Glazer Name Role Phone Unavailable Primary Care Provider Unavailabl e Reason for Visit * Reason Comments Med Refill Encounter Details Date Type Department Care Team (Late st Contact Info) Description 01/16/2025 Refill [facility] [address] [place] [address] Kimberley Cunningham FNP [address] [place] [address] Type 2 diabetes mellitus with hyperglycemia (CMS/HCC) [...]
--- OUTSIDE RECORDS SUMMARY | 2025-01-26 12:10 | XMS_ITS | Encounter Summary ---
Author Organization [employer] Address [address] 7[address] [place] [address] Care Team Providers Care Authorization Specialist Name Role Phone Kimberley Cunningham FIRE CREW SPECIALIST Primary Care Provider [phone] Encounter Details Date Type Department Care Team (Late st Contact Info) Description 10/12/2023 Abstract [facility] [address] [place], [place] [phone] Sandra Villareal Social History Tobacco Use Types [...] documented as of this encounter Care Teams Authorization Specialist Relationship Specialty Start Date End Date Kimberley Cunningham FNP [address] [place] [id number] PCP - General Family Medicine 07/23/22 03/20/24 documented as of this encounter
--- OUTSIDE RECORDS SUMMARY | 2025-01-26 12:10 | XMS_ITS | Encounter Summary ---
Author Organization [employer] Address [address] [facility] 7t [place] [address] Care Team Providers Care Academic Affairs Assistant Name Role Phone Unavailable Primary Care Provider Unavailabl e Reason for Visit * Reason Comments Med Refill Encounter Details Date Type Department Care Team ([facility] st Contact Info) Description 10/13/2024 Refill [facility] [address] [place], [place] [phone] Kimberley Cunningham, EILEEN [address] [place] [address] Type 2 diabetes mellitus without complication, with long-term current use of insulin ([facility]) Social History Tobacco [...] complication, with long-term current use of insulin ([facility]) documented in this encounter Additional Health Concerns Assessment Noted Time PHQ-9 Depression Total Score: 2 01/09/20 23 9:19 AM EST documented as of this encounter
--- OUTSIDE RECORDS SUMMARY | 2025-01-26 12:10 | XMS_ITS | Encounter Summary ---
Author Organization [employer] Address [address] [place] [address] Care Team Providers Care Radio Frequency Design Engineer Name Role Phone Unavailable Primary Care Provider Unavailabl e Reason for Visit * Reason Comments Med Refill Encounter Details Date Type Department Care Team (Late st Contact Info) Description 05/20/2024 Refill [facility] [address] [place] [address] Kimberley Cunningham FNP [address] [place] [address] Primary hypertension Social History Tobacco Use Types [...] t he electric, gas, oil or water [employer] threatened to shut off services in your [...]
--- OUTSIDE RECORDS SUMMARY | 2025-01-26 12:10 | XMS_ITS | Encounter Summary ---
Author Organization [employer] Address [address] [facility] [address] [facility] [address] [place] [address] Care Team Providers Care Brake Repairer Air Name Role Phone Unavailable Primary Care Provider Unavailabl e Reason for Visit * Reason Comments Med Refill Encounter Details Date Type Department Care Team (Late st Contact Info) Description 06/17/2024 Refill [facility] [address] [place] [address] Kimberley Cunningham FNP [address] [place] [address] Other hyperlipidemia; Type 2 diabetes mellitus with [...]
== END 2025-01-26 11:51 | disposition home or self-care (01) ==
PROVIDERS: PCP Internal Medicine
DX: E11.65 Type 2 diabetes mellitus with hyperglycemia (principal); Z79.4 Long term (current) use of insulin; M33.13 Other dermatomyositis without myopathy; I25.10 Atherosclerotic heart disease of native coronary artery without angina pectoris; M62.82 Rhabdomyolysis; E78.00 Pure hypercholesterolemia, unspecified; I10 Essential (primary) hypertension; E66.3 Overweight; R10.13 Epigastric pain; K21.9 Gastro-esophageal reflux disease without esophagitis; F41.9 Anxiety disorder, unspecified

== ENCOUNTER → 2025-01-26 10:27 | Outpatient (BNVA) | payer OTHER, SELFPAY | PROVIDERS: PCP Internal Medicine | DX: M33.13 Other dermatomyositis without myopathy (principal); I25.10 Atherosclerotic heart disease of native coronary artery without angina pectoris; E78.00 Pure hypercholesterolemia, unspecified; E11.65 Type 2 diabetes mellitus with hyperglycemia; Z79.4 Long term (current) use of insulin; I10 Essential (primary) hypertension; E66.3 Overweight; R10.13 Epigastric pain; K21.9 Gastro-esophageal reflux disease without esophagitis; F41.9 Anxiety disorder, unspecified | CPT/HCPCS: 93005; 99212 ==

== ENCOUNTER 2025-01-26 22:44 | Emergency (ER) | payer OTHER, SELFPAY ==
--- NOTE | ~2025-01-26 | XR_ITS ---
EXAMINATION: XR CHEST CLINICAL INFORMATION: Chest pain. COMPARISON: Chest x-ray 12/18/2024. TECHNIQUE: Frontal view of the chest was obtained. FINDINGS: No significant abnormality is noted involving the heart, lungs, mediastinum, bony thorax or soft tissues. XR/XR chest 1V IMPRESSION: Unremarkable chest examination. No change from 12/18/2024 chest x-ray. Electronically signed by: Jeremy Kennedy MD 01/27/2025 02:14 PM [facility]
--- NOTE | ~2025-01-26 | CT_ITS ---
EXAMINATION: CT ABDOMEN AND PELVIS WITHOUT CONTRAST CLINICAL INFORMATION: Upper abdominal pain. COMPARISON: CT dated January 12, 2025. TECHNIQUE: Multidetector volumetric imaging was performed from the superior aspect of the liver through the pubic symphysis. Sagittal and coronal reformatted images were obtained on the technologist's workstation. This CT examination was performed using dose optimization techniques as appropriate, variously including the following: *Automated exposure control *Adjustment of mA and/or kV according to patient size (this includes techniques or standardized protocols for targeted exams where dose is matched to indication/reason for exam; i.e. extremities or head) *Use of iterative reconstruction technique. DLP: 421 mGy centimeter. FINDINGS: Inadequate evaluation of the intra-abdominal organs and vascular structures due to lack of IV contrast. LUNG BASES: No acute airspace disease or gross pulmonary nodules. LIVER, GALLBLADDER, AND BILIARY TREE: Liver measures 17 cm. No intrahepatic biliary ductal dilatation. Punctate calcification right hepatic lobe. Status post cholecystectomy. Common bile duct measures 5 mm. PANCREAS: No peripancreatic fluid collection. No main pancreatic ductal dilatation. SPLEEN: 7 cm. ADRENAL GLANDS: No nodular lesions. KIDNEYS AND URETERS: No hydronephrosis. There is a 2 mm calculus, lower pole left kidney. BLADDER: Fluid-filled. GASTROINTESTINAL TRACT: Appendix is normal. Scattered diverticula. Abundant stool. No intestinal obstruction pattern. No pneumatosis intestinalis. No pneumoperitoneum. No ascites. ABDOMINAL WALL: Small fat-containing umbilical hernia. LYMPH NODES: Mild prominent, mesenteric and retroperitoneum. VASCULAR: Calcified plaques throughout the abdominal aorta wall and iliac arteries. Calcified plaques in the coronary arteries with the questionable stenting. PELVIC VISCERA: Inadequate evaluation. Dystrophic ossification right perineum OSSEOUS STRUCTURES: Multilevel thoracolumbar spondylosis more conspicuous at L3-4, L4-5 and L5-S1. Sclerosis and the sacroiliac joints. Degenerative changes in the hips, mild. Calcifications in the greater trochanter of the femur bilaterally. CT/CT abdomen pelvis wo IV con IMPRESSION: 2 mm nonobstructing calculus left kidney. Hepatomegaly, mild. Atherosclerosis disease and coronary artery disease. Diverticular disease. Small fat-containing umbilical hernia. Fleischner guidelines were followed. Electronically signed by: Uri Perla MD 01/27/2025 11:45 AM EST
[2025-01-26 22:54] VITALS: BP 140/61; PULSE 79; RESP 18; TEMP 36.9; O2SAT 98; BMI 20.6
--- NOTE | 2025-01-26 23:00 | ECG_ITS ---
Test Reason : ABD PAIN Blood Pressure : */* mmHG Vent. Rate : 73 BPM Atrial Rate : 73 BPM P-R Int : 138 ms QRS Dur : 100 ms QT Int : 362 ms P-R-T Axes : 52 18 54 degrees QTcB Int : 398 ms Normal sinus rhythm Nonspecific T wave abnormality Abnormal ECG When compared with ECG of 12-Jan-2025 14:13, No significant change was found Referred By: Generic ED Physician Electronically Signed By: CAROLINA HOYT MD
[2025-01-26 23:33] LABS: Basophils Percent Auto 0.3 % (0-2); Eosinophils Absolute Auto 0.2 X10*3/uL (0.0-0.4); Eosinophils Percent Auto 1.4 % (0-4); Hematocrit 35.7 % (37.0-47.0); Hemoglobin 11.9 g/dl (12.0-16.0); Imm Gran Abs Auto 0.04 X10*3/uL (0.00-0.03); Imm Gran Pct Auto 0.3 % (0.0-0.4); Lymphocytes Absolute Auto 1.7 X10*3/uL (1.2-4.9); Lymphocytes Percent Auto 13.4 % (20-40); MANUAL DIFF FLAG NO; Mean Corpuscular HGB Conc 33.3 g/dl (31.0-35.0); Mean Corpuscular Hemoglobin 26.6 pg (27.0-33.0); Mean Corpuscular Volume 79.9 fL (80.0-98.0); Mean Platelet Volume 8.8 fL (9.4-12.3); Monocytes Absolute Auto 0.7 X10*3/uL (0.1-1.2); Monocytes Percent Auto 5.7 % (2-11); Neutrophils Absolute Auto 9.8 x10*3/uL (2.0-8.3); Neutrophils Percent Auto 78.9 % (45-73); Platelet Count 468 X10*3/uL (160-400); Red Blood Count 4.47 X10*6/uL (4.20-5.50); Red Cell Distribution Width 15.1 % (11.0-16.0); White Blood Count 12.4 X10*3/uL (4.8-10.8)
[2025-01-26 23:48] LABS: Alanine Aminotransferase 250 U/L (0-31); Albumin Level 4.1 g/dL (3.5-5.0); Alkaline Phosphatase 71 U/L (39-117); Anion Gap 17 (12-20); Aspartate Amino Transferase 152 U/L (5-31); Bilirubin Total 0.5 mg/dL (0.0-1.0); Blood Urea Nitrogen 14 mg/dL (9-16); Calcium 9.9 mg/dL (8.4-10.2); Carbon Dioxide 25 mmol/L (22-29); Chloride 104 mmol/L (96-108); Creatinine Clr Calc Pharmacy 75.8; Estimated Glomerular Filt Rate > 60; Glucose Random 150 mg/dL (60-115); Potassium 4.7 mmol/L (3.3-5.1); Sodium 141 mmol/L (135-145); Total Protein 7.7 g/dL (6.5-8.0)
[2025-01-26 23:55] LABS: Troponin-I High Sensitivity 18.3 ng/L (<3.5-17.0)
[2025-01-27 00:10] LABS: Influenza A PCR NEGATIVE (Negative); Influenza B PCR NEGATIVE (Negative); Resp Syncy Virus RNA Qual PCR NEGATIVE (Negative); SARS COV2 PCR INHOUSE NEGATIVE (Negative)
[2025-01-27 00:45] VITALS: BP 111/42; PULSE 80; RESP 18; TEMP 36.9; O2SAT 97
[2025-01-27 03:03] LABS: Troponin-I High Sensitivity 16.1 ng/L (<3.5-17.0)
[2025-01-27 05:44] VITALS: BP 120/57; PULSE 78; RESP 19; TEMP 36.4; O2SAT 99
[2025-01-27 10:21] VITALS: BP 139/62; PULSE 93; RESP 20; TEMP 36.7; O2SAT 98
--- NOTE | 2025-01-27 10:28 | ED.ABDPAIN ---
HPI - Abdominal Pain General Chief Complaint: Abdominal Pain Stated Complaint: abd pain/ nausea Time Seen by Provider: 01/27/25 10:24 Source: patient, old records reviewed and spanish interpreter/translator Limitations: no limitations History of Present Illness ED Provider: ASHLEY HPI narrative: 64 yo female with PMH of anxiety, DM, GERD, anemia, HTN, hypothyroidism, CAD s/p CT on 2 months ago - 3 stents repeat procedure in december. She comes in with c/o CT with more stents a week ago. She reports no fevers, cough, no dyspnea, no chest pain. She reports upper abdominal pain for 3 days no n/v. She denies black or bloody stools. She feels weak and tired. She is drinking and eating during triage. She denies fainting, she has no swelling, she is very tender on the anterior chest wall. MD elicited complaint: abdominal pain Pertinent past history: myocardial infarction Onset (ago): day(s) (3) Pain Consistency: intermittent Location: epigastric Severity: moderate Quality: aching Radiation: none Migration to: no migration Exacerbating factors: nothing Relieving factors: nothing Associated symptoms: nausea Related Data Home Medications ?Medication ?Instructions ?Recorded ?Confirmed blood glucose control high and low #1 ea 09/07/20 01/26/25 solution (FreeStyle Control solution) lancets 33 gauge (TRUEplus Lancets) #100 ea 11/29/23 01/26/25 aspirin 81 mg tablet,delayed 81 mg PO DAILY 11/20/24 01/26/25 release (Adult Low Dose Aspirin) levothyroxine 150 mcg tablet 150 mcg PO DAILY@0600 12/03/24 01/26/25 melatonin 5 mg capsule 5 mg PO BEDTIME 12/03/24 01/26/25 linagliptin 5 mg tablet (Tradjenta) mg PO DAILY 01/08/25 01/26/25 atorvastatin 80 mg tablet 80 mg PO BEDTIME 01/26/25 01/26/25 isosorbide mononitrate 30 mg 30 mg PO DAILY 01/26/25 01/26/25 tablet,extended release 24 hr Previous Rx's ?Medication ?Instructions ?Recorded pen needle, diabetic 32 gauge x #100 ea 11/02/20 (BD Corin 2nd Gen Pen Needle) pen needle, diabetic 32 gauge x #100 ea 05/24/22 5/32 (BD Ultra-Fine Corin Pen Needle) lancets 28 gauge (FreeStyle #100 ea 11/29/23 Lancets) cholecalciferol (vitamin D3) 50 50 mcg PO DAILY #90 caps 08/26/24 mcg (2,000 unit) capsule fluoxetine 10 mg capsule 10 mg PO DAILY #90 caps 10/03/24 metformin 1,000 mg tablet 1,000 mg PO BID #180 tabs 10/21/24 blood pessure cuff #1 ea 11/28/24 blood sugar diagnostic (FreeStyle #100 ea 11/28/24 Lite Strips) blood-glucose meter (FreeStyle #1 ea 11/28/24 Lite Meter kit) metoprolol succinate 50 mg 50 mg PO DAILY #90 tabs 12/02/24 tablet,extended release 24 hr ticagrelor 90 mg tablet (Brilinta) 90 mg PO BID #60 tabs 12/12/24 ferrous sulfate 325 mg (65 mg 325 mg PO BID #60 tabs 12/15/24 iron) tablet losartan 25 mg tablet 25 mg PO DAILY #90 tabs 12/31/24 insulin glargine 100 unit/mL (3 15 unit (0.15 mL) subcut DAILY 30 01/14/25 mL) subcutaneous pen (Lantus days #15 mL Solostar U-100 Insulin) pen needle, diabetic 32 gauge x #100 ea 01/14/25 (BD Ultra-Fine Corin Pen Needle) dapagliflozin propanediol 10 mg 10 mg PO DAILY #90 tabs 01/20/25 tablet (Farxiga) alprazolam 0.25 mg tablet 0.25 mg PO DAILY PRN anxiety #15 01/26/25 tabs Allergies Allergy/AdvReac Type Severity Reaction Status Date / Time penicillin V Allergy Unknown hives Verified 01/26/25 22:54 Penicillins [PENICILLINS] Allergy Unknown RASH,DIZZIN Verified 01/26/25 22:54 ESS Review of Systems Review of Systems Constitutional : No Weight loss, No Fever, No Chills ENT/Mouth : No sore throat, No Rhinorrhea Eyes: No Eye Pain, No Swelling Cardiovascular : no Chest Pain, no SOB, no Dyspnea on Exertion, No Orthopnea, No Edema, No Palpitations Respiratory : No Cough, No Sputum Gastrointestinal : no Nausea, No Vomiting, pos Diarrhea, pos abdominal Pain, No Hematochezia, No Melena Genitourinary : No Dysuria, No Urinary Frequency Musculoskeletal : No joint pain, No Myalgias, No Joint Swelling Skin : No Skin Lesions, No rash Neuro : No Weakness, No Numbness, No Dizziness, No Headache All other systems reviewed and are negative [facility] Past Medical History Attestation statement: The following information was validated with the patient. Source: old records reviewed Medical History Dermatomyositis Elevated CK CAD (coronary artery disease) STEMI (ST elevation myocardial infarction) GERD (gastroesophageal reflux disease) Physical exam, pre-employment Sebaceous cyst RUQ pain Cervical polyp Muscle strain of right scapular region H. pylori infection Overweight (BMI 25.0-29.9) Hypertension Hypothyroidism senior living (current) use of insulin Diabetes type 2, uncontrolled Surgical History History of coronary artery stent placement Hx of tubal ligation Hx of cholecystectomy Family History Family History Unknown No problems noted. Father Diabetes Heart disease Mother Diabetes Hypertension Heart disease Brother Lung cancer Sister Heart disease Social History Social History Household Members: Family Housing: House Are you a primary care companion to a significant other at home: No Do you presently have visiting nurse or other home services: Yes Alcohol intake: never Patient Tobacco Use Status: Never used Tobacco Tobacco use type: Cigarette e-Cigarette/Vaping Use: Never Used Second Hand Smoke Exposure: No Advance Directives: No Advance Directives Information Provided: Yes Do you have a plan to hurt others: No Plan service: No Current occupational status: employed and disabled Current occupation: [employer] Cognitive needs: No Hearing needs: No Vision needs: No Physical Exam ED Vital Signs: Vital Signs - 24 hr 01/26/25 22:54 01/27/25 00:45 01/27/25 05:44 Temperature 98.5 F 98.5 F 97.6 F Pulse Rate 79 80 78 Respiratory Rate 18 18 19 Blood Pressure 140/61 H 111/42 L 120/57 L Pulse Oximetry 98 97 99 Oxygen Delivery Method Room Air Room Air Room Air 01/27/25 10:01/27/25 12:00 Temperature 98.1 F 98.9 F Pulse Rate 93 80 Respiratory Rate 20 16 Blood Pressure 139/62 125/61 Pulse Oximetry 98 95 Oxygen Delivery Method Room Air Room Air BMI result Body Mass Index 20.6 Appearance: Alert. Oriented X3. No acute distress. Eyes: Pupils equal, round and reactive to light. ENT: Pharynx normal. Neck: Normal inspection. Neck supple. CVS: Normal heart rate and rhythm. Pulses normal. Respiratory: No respiratory distress. Breath sounds normal. Abdomen: Soft and moderate epigastric ttp no rebound or guarding Skin: Skin warm and dry. Normal skin color. Normal skin turgor. Extremities: No lower extremity edema. No calf ttp Neuro: Oriented X 3. No motor deficit. No sensory deficit. CN2-12 intact Course Course Course Narrative: signed out to Joyce ESTEVEZ -AST/ALT chronically elevated. Troponin x3 without significant rise, mi unlikely -UA negative -viral testing negative -patient is tolerating p.o. in the ED CT abdomen pelvis wo IV con IMPRESSION: 2 mm nonobstructing calculus left kidney. Hepatomegaly, mild. Atherosclerosis disease and coronary artery disease. Diverticular disease. Small fat-containing umbilical hernia. Fleischner guidelines were followed. XR chest 1V IMPRESSION: Unremarkable chest examination. No change from 12/18/2024 chest x-ray. CA Echo Limited Conclusions: - 1. No evidence of pericardial effusion 2. Normal LV ejection fraction of 65-70% Results discussed with patient including worrisome signs and symptoms and strict return precautions, and when to return to the emergency department. They verbalized understanding and feel safe for discharge at this time. Medical Decision Making Medical Decision Making MDM Narrative: 64 yo female with PMH of anxiety, DM, GERD, anemia, HTN, hypothyroidism, CAD s/p CT on 2 months ago - 3 stents repeat procedure in december. At this time she is not toxic appearing I am going to obtain trop x 2, EKG, CT scan of abdomen for upper abdominal pain has prior cholecystectomy in past at this time EKG ordered, bedside ECHO for effusion. She has localized and reproduceable upper abdomianl pain - could be NSTEMI, atypical chest pain, chest wall pain, GERD, gastritis, pericardial effusion. Pain is not pleuritic doubt VTE. No infectious symptoms. Differential Diagnosis Differential Diagnoses: The differential diagnosis associated with the presentation includes atypical ACS, effusion, chest wall pain, gastritis Admission/Observation Consideration of admission/observation: Escalation of care including admission/observation considered Lab Data MDM Lab Attestation statement: I reviewed the patient's lab results. 01/27/25 10:48 01/27/25 10:48 Labs: Lab Results 01/26/25 01/26/25 01/27/25 Range/Units 23:22 23:24 02:32 WBC 12.4 H (4.8-10.8) X10*3/uL RBC 4.47 (4.20-5.50) X10*6/uL Hgb 11.9 L (12.0-16.0) g/dl Hct 35.7 L (37.0-47.0) % MCV 79.9 L (80.0-98.0) fL MCH 26.6 L (27.0-33.0) pg MCHC 33.3 (31.0-35.0) g/dl RDW 15.1 (11.0-16.0) % Plt Count 468 H (160-400) X10*3/uL MPV 8.8 L (9.4-12.3) fL Immature Gran % (Auto) 0.3 (0.0-0.4) % Neut % (Auto) 78.9 H (45-73) % Lymph % (Auto) 13.4 L (20-40) % [place] % (Auto) 5.7 (2-11) % Eos % (Auto) 1.4 (0-4) % Baso % (Auto) 0.3 (0-2) % Lymph # (Auto) 1.7 (1.2-4.9) X10*3/uL [place] # (Auto) 0.7 (0.1-1.2) X10*3/uL Eos # (Auto) 0.2 (0.0-0.4) X10*3/uL Baso # (Auto) 0.0 (0.0-0.2) X10*3/uL Abs Immat Gran (auto) 0.04 H (0.00-0.03) X10*3/uL Absolute Neuts (auto) 9.8 H (2.0-8.3) x10*3/uL Absolute Nucleated RBC 0.000 (0.0-0.012) X10*3/uL Nucleated RBC % (auto) 0.0 (0.0-0.2) /100WBC Sodium 141 (135-145) mmol/L Potassium 4.7 (3.3-5.1) mmol/L Chloride 104 (96-108) mmol/L Carbon Dioxide 25 (22-29) mmol/L Anion Gap 17 (12-20) BUN 14 (9-16) mg/dL Creatinine 0.66 (0.5-1.4) mg/dL Estim Creat Clear Calc 75.8 Estimated GFR > 60 Random Glucose 150 H (60-115) mg/dL Calcium 9.9 (8.4-10.2) mg/dL Total Bilirubin 0.5 (0.0-1.0) mg/dL Direct Bilirubin (0.0-0.5) mg/dL AST 152 H (5-31) U/L ALT 250 H (0-31) U/L Alkaline Phosphatase 71 (39-117) U/L Troponin I High Sens 18.3 H D 16.1 (<3.5-17.0) ng/L Total Protein 7.7 (6.5-8.0) g/dL Albumin 4.1 (3.5-5.0) g/dL Lipase (8-78) U/L Urine Color Urine Appearance Urine pH (5.0-9.0) Ur Specific [place] (1.005-1.025) Urine Protein (Neg-Trace) mg/dL Urine Glucose (UA) (Negative) mg/dL Urine Ketones (Negative) mg/dL Urine Blood (Negative) Urine Nitrite (Negative) Ur Leukocyte Esterase (Negative) Urine RBC (0-2) /HPF Urine WBC (0-5) /HPF Ur Squamous Epith Cells (0-2) /HPF Urine Bacteria (None Seen) Hyaline Casts (0-2) /LPF Influenza Type A (PCR) NEGATIVE (Negative) Influenza Type B (PCR) NEGATIVE (Negative) RSV RNA Qual (PCR) NEGATIVE (Negative) SARS-CoV-2 RNA (RT-PCR) NEGATIVE (Negative) 01/27/25 01/27/25 Range/Units 10:48 13:40 WBC 11.3 H (4.8-10.8) X10*3/uL RBC 4.60 (4.20-5.50) X10*6/uL Hgb 12.3 (12.0-16.0) g/dl Hct 36.9 L (37.0-47.0) % MCV 80.2 (80.0-98.0) fL MCH 26.7 L (27.0-33.0) pg MCHC 33.3 (31.0-35.0) g/dl RDW 15.2 (11.0-16.0) % Plt Count 474 H (160-400) X10*3/uL MPV 8.7 L (9.4-12.3) fL Immature Gran % (Auto) 0.3 (0.0-0.4) % Neut % (Auto) 79.9 H (45-73) % Lymph % (Auto) 13.9 L (20-40) % [place] % (Auto) 4.4 (2-11) % Eos % (Auto) 1.1 (0-4) % Baso % (Auto) 0.4 (0-2) % Lymph # (Auto) 1.6 (1.2-4.9) X10*3/uL [place] # (Auto) 0.5 (0.1-1.2) X10*3/uL Eos # (Auto) 0.1 (0.0-0.4) X10*3/uL Baso # (Auto) 0.1 (0.0-0.2) X10*3/uL Abs Immat Gran (auto) 0.03 (0.00-0.03) X10*3/uL Absolute Neuts (auto) 9.0 H (2.0-8.3) x10*3/uL Absolute Nucleated RBC 0.000 (0.0-0.012) X10*3/uL Nucleated RBC % (auto) 0.0 (0.0-0.2) /100WBC Sodium 142 (135-145) mmol/L Potassium 4.7 (3.3-5.1) mmol/L Chloride 107 (96-108) mmol/L Carbon Dioxide 25 (22-29) mmol/L Anion Gap 15 (12-20) BUN 16 (9-16) mg/dL Creatinine 0.64 (0.5-1.4) mg/dL Estim Creat Clear Calc 78.2 Estimated GFR > 60 Random Glucose 169 H (60-115) mg/dL Calcium 10.0 (8.4-10.2) mg/dL Total Bilirubin 0.6 (0.0-1.0) mg/dL Direct Bilirubin 0.2 (0.0-0.5) mg/dL AST 158 H (5-31) U/L ALT 261 H (0-31) U/L Alkaline Phosphatase 76 (39-117) U/L Troponin I High Sens 11.5 (<3.5-17.0) ng/L Total Protein 8.1 H (6.5-8.0) g/dL Albumin 4.4 (3.5-5.0) g/dL Lipase 39 (8-78) U/L Urine Color Yellow Urine Appearance Clear Urine pH 5.5 (5.0-9.0) Ur Specific [place] 1.020 (1.005-1.025) Urine Protein Negative (Neg-Trace) mg/dL Urine Glucose (UA) >=1000 H (Negative) mg/dL Urine Ketones Negative (Negative) mg/dL Urine Blood Negative (Negative) Urine Nitrite Negative (Negative) Ur Leukocyte Esterase Negative (Negative) Urine RBC 0-2 (0-2) /HPF Urine WBC 0-5 (0-5) /HPF Ur Squamous Epith Cells 0-2 (0-2) /HPF Urine Bacteria None Seen (None Seen) Hyaline Casts 0-2 (0-2) /LPF Influenza Type A (PCR) (Negative) Influenza Type B (PCR) (Negative) RSV RNA Qual (PCR) (Negative) SARS-CoV-2 RNA (RT-PCR) (Negative) Independent Interpretation I performed an independent interpretation of an: EKG, Plain X-Ray and CT Scan Interpretation: Rate: 73 Rhythm: NSR [place]: normal Normal P waves. Normal JARED. Normal QRS complex. ST T wave : no TIAN, nonspecific ST T wave changes qTC:398 prior studies: no change from prior The study has been interpreted contemporaneously by me. . Radiology Impression Discussion of test interpretation with radiology: I have reviewed the radiologist's reading. Medications Administered Discontinued Medications Generic Name Dose Route Start Last Admin Trade Name Freq PRN Reason Stop Dose Admin Al Hydroxide/Mg Hydroxide 30 ml 01/27/25 11:52 01/27/25 12:09 Magnesium Hydrox/Alum Hydrox 30 Ml Oral.Susp PO 01/27/25 11:53 30 ml ONCE ONE Administration Famotidine 20 mg 01/27/25 11:52 01/27/25 12:08 Famotidine 20 Mg Tablet PO 01/27/25 11:53 20 mg ONCE ONE Administration Discharge Plan Discharge Clinical Impression: Acute epigastric pain, Calculus of left kidney Patient Disposition: Home, Self-Care Instructions: Kidney Stones (ED), Abdominal Pain (ED) Additional Instructions: Your blood work and imaging studies are reassuring today. Your heart looks good Your CT scan does show a stone inside your left kidney, this should not be causing pain Your chest x-ray is unremarkable Your echo does not show an effusion. You need to have close follow-up with your doctor, if her symptoms persist or worsening of constant worsening abdominal pain, chest pain, shortness of breath, persistent nausea/vomiting return to the ED Prescriptions: No Action (DME) pen needle, diabetic [BD Corin 2nd Gen Pen Needle] 32 gauge x 5/32 needle See Rx Instructions .MEDSUPPLY Qty: 100 4RF Rx Instructions: once a day cholecalciferol (vitamin D3) 50 mcg (2,000 unit) capsule 50 mcg PO DAILY Qty: 90 3RF fluoxetine 10 mg capsule 10 mg PO DAILY Qty: 90 1RF metformin 1,000 mg tablet 1,000 mg PO BID Qty: 180 1RF (DME) FreeStyle Lite Strips Strip See Rx Instructions .ROUTE .MEDSUPPLY Qty: 100 5RF Rx Instructions: 3 times a day (DME) blood-glucose meter [FreeStyle Lite Meter] Kit See Rx Instructions .Route Qty: 1 0RF Rx Instructions: As directed TID (DME) blood pessure cuff See Rx Instructions .Route .MEDSUPPLY Qty: 1 0RF Rx Instructions: As directed Brilinta 90 mg tablet 90 mg PO BID Qty: 60 11RF ferrous sulfate 325 mg (65 mg iron) Tablet 325 mg PO BID Qty: 60 6RF losartan 25 mg tablet 25 mg PO DAILY Qty: 90 0RF (DME) pen needle, diabetic [BD Ultra-Fine Corin Pen Needle] 32 gauge x 5/32 needle See Rx Instructions .Route Qty: 100 1RF Rx Instructions: As directed insulin glargine [Lantus Solostar U-100 Insulin] 100 unit/mL (3 mL) insulin pen 15 unit subcut DAILY 30 Days Qty: 15 3RF dapagliflozin propanediol [Farxiga] 10 mg tablet 10 mg PO DAILY Qty: 90 0RF levothyroxine 150 mcg tablet 150 mcg PO DAILY@0600 melatonin 5 mg capsule 5 mg PO BEDTIME (DME) lancets [TRUEplus Lancets] 33 gauge misc See Rx Instructions .ROUTE TID Qty: 100 Rx Instructions: As directed check BS TID (DME) lancets [FreeStyle Lancets] 28 gauge misc See Rx Instructions .ROUTE .MEDSUPPLY Qty: 100 11RF Rx Instructions: As directed three times a day (DME) FreeStyle Control Solution See Rx Instructions .ROUTE .MEDSUPPLY Qty: 1 Rx Instructions: As directed (DME) pen needle, diabetic [BD Ultra-Fine Corin Pen Needle] 32 gauge x 5/32 needle See Rx Instructions .ROUTE .MEDSUPPLY Qty: 100 3RF Rx Instructions: As directed once daily aspirin [Adult Low Dose Aspirin] 81 mg tablet,delayed release (DR/EC) 81 mg PO DAILY metoprolol succinate 50 mg tablet extended release 24 hr 50 mg PO DAILY Qty: 90 3RF Tradjenta 5 mg tablet PO DAILY atorvastatin 80 mg tablet 80 mg PO BEDTIME isosorbide mononitrate 30 mg tablet extended release 24 hr 30 mg PO DAILY alprazolam 0.25 mg tablet 0.25 mg PO DAILY PRN (Reason: anxiety) Qty: 15 0RF Referrals: [facility] [place] [facility] [Provider Group] [facility] [place] [facility] [Provider Group] Conor Garcia MD [Primary Care Provider] - 3 days Print Language: Gambian
[2025-01-27 10:56] LABS: Basophils Absolute Auto 0.1 X10*3/uL (0.0-0.2); Basophils Percent Auto 0.4 % (0-2); Eosinophils Absolute Auto 0.1 X10*3/uL (0.0-0.4); Eosinophils Percent Auto 1.1 % (0-4); Hematocrit 36.9 % (37.0-47.0); Hemoglobin 12.3 g/dl (12.0-16.0); Imm Gran Abs Auto 0.03 X10*3/uL (0.00-0.03); Imm Gran Pct Auto 0.3 % (0.0-0.4); Lymphocytes Absolute Auto 1.6 X10*3/uL (1.2-4.9); Lymphocytes Percent Auto 13.9 % (20-40); MANUAL DIFF FLAG NO; Mean Corpuscular HGB Conc 33.3 g/dl (31.0-35.0); Mean Corpuscular Hemoglobin 26.7 pg (27.0-33.0); Mean Corpuscular Volume 80.2 fL (80.0-98.0); Mean Platelet Volume 8.7 fL (9.4-12.3); Monocytes Absolute Auto 0.5 X10*3/uL (0.1-1.2); Monocytes Percent Auto 4.4 % (2-11); Neutrophils Percent Auto 79.9 % (45-73); Platelet Count 474 X10*3/uL (160-400); Red Cell Distribution Width 15.2 % (11.0-16.0); White Blood Count 11.3 X10*3/uL (4.8-10.8)
[2025-01-27 11:12] LABS: Alanine Aminotransferase 261 U/L (0-31); Albumin Level 4.4 g/dL (3.5-5.0); Alkaline Phosphatase 76 U/L (39-117); Anion Gap 15 (12-20); Aspartate Amino Transferase 158 U/L (5-31); Bilirubin Direct 0.2 mg/dL (0.0-0.5); Bilirubin Total 0.6 mg/dL (0.0-1.0); Blood Urea Nitrogen 16 mg/dL (9-16); Carbon Dioxide 25 mmol/L (22-29); Chloride 107 mmol/L (96-108); Creatinine Clr Calc Pharmacy 78.2; Estimated Glomerular Filt Rate > 60; Glucose Random 169 mg/dL (60-115); Lipase 39 U/L (8-78); Potassium 4.7 mmol/L (3.3-5.1); Sodium 142 mmol/L (135-145); Total Protein 8.1 g/dL (6.5-8.0)
[2025-01-27 11:19] LABS: Troponin-I High Sensitivity 11.5 ng/L (<3.5-17.0)
--- NOTE | 2025-01-27 11:51 | CA_ITS ---
Transthoracic Echocardiogram Patient (Last, First, Middle): Denise Cramer, Gender: Female Date of : 1960 Age: 64 Procedure Date: 01/27/2025 Procedure Type: Transthoracic Echocardiogram Location: ER Height: 162.56 cm Weight: 53.98 kg BSA: 1.57 m2 Heart Rate: 74 bpm BP: 125 / 61 mmHg [employer]: SB Referring MD: Antoinette ESTEVEZ Symptoms: eval for effusion. recent NH w/stent placement Study Quality: Adequate. Limited by order ECG Rhythm: Sinus Conclusions: - 1. No evidence of pericardial effusion 2. Normal LV ejection fraction of 65-70% Findings Left Ventricle Normal left ventricular size, thickness, and systolic function. The visually estimated ejection fraction is between 65-70%. Pericardium/Pleural There is no evidence of pericardial effusion. Prior Study Comparison No prior study available for comparison. Measurements 2D Linear Measurements IVSd: 0.70 0.6-0.9/0.6-1.0 cm LVIDd: 3.71 3.9-5.3/4.2-5.9 cm LVIDd Index: 2.36 2.4-3.2/2.2-3.1 cm/m2 LVIDs: 2.34 2.0-3.6 cm LVPWd: 0.67 0.7-1.1 cm LV Mass: 82.83 67-162/88-224 g LV Mass Index: 52.76 43-95/49-115 g/m2 LVOT Diam: 1.80 3.0+(-)1.3 cm 2D Systolic Function EF 4C: 68.80 >55% EF 2C: 65.60 >55% EF BiP: 67.20 >55% Mitral Valve MV Pk E: 0.64 MV PK A: 0.65 MV Decel Time: 250.00 E/A: 1.00 E'Lateral: 9.79 E'Medial: 6.96 E/E' Med: 9.20 E/E' Lat: 6.50 PHT: 73.00 MVA PHT: 3.01 Decel [place]: 2.55 LVOT LVOT Pk Jorge: 0.92 LVOT Mn Jorge: 0.63 LVOT VTI: 0.19 LVOT Pk Grad: 3.00 LVOT Mn Grad: 2.00 LVOT Diam: 1.80 LVOT Area: 2.54 Diastolic Function MV Pk E: 0.64 MV Pk A: 0.65 E/A: 1.00 E'Medial: 6.96 E/E' Med: 9.20 E' Laterial: 9.79 E/E' Lat: 6.50 Updated in Other Vendor System with Status of Final Dorian Leong MD electronically signed on 01/27/2025 2:31:02 PM with status of Final
[2025-01-27 12:00] VITALS: BP 125/61; PULSE 80; RESP 16; TEMP 37.2; O2SAT 95
[2025-01-27] MEDS: Famotidine 20 MG TABLET PO (12:08)
[2025-01-27] MEDS: Magnesium Hydrox/Alum Hydrox 30 ML ORAL.SUSP PO (12:09)
[2025-01-27 13:50] LABS: Appearance Urine Clear; Color Urine Yellow; Glucose Urine UA >=1000 mg/dL (Negative); Leukocyte Esterase Urine Negative (Negative); Nitrite Urine Negative (Negative); PH 5.5 (5.0-9.0); UMIC TRIGGER UACC YES; Urine Blood Negative (Negative); Urine Ketones Negative (Negative); Urine Protein Negative (Neg-Trace)
[2025-01-27 13:57] LABS: Bacteria Urine None Seen (None Seen); Hyaline Casts Urine 0-2 /LPF (0-2); RBC Urine 0-2 /HPF (0-2); Squamous Epithelial Cell Urine 0-2 /HPF (0-2); WBC Urine 0-5 /HPF (0-5)
[2025-01-27 15:28] VITALS: BP 125/61; PULSE 80; RESP 16; TEMP 37.2; O2SAT 95
== END 2025-01-27 15:29 | disposition home or self-care (01) ==
PROVIDERS: Emergency Provider Emergency Medicine; PCP Internal Medicine
DX: R10.13 Epigastric pain (principal); N20.0 Calculus of kidney; I10 Essential (primary) hypertension; I25.10 Atherosclerotic heart disease of native coronary artery without angina pectoris; E11.9 Type 2 diabetes mellitus without complications; I25.2 Old myocardial infarction; Z79.4 Long term (current) use of insulin; Z79.82 Long term (current) use of aspirin; Z79.899 Other long term (current) drug therapy
CPT/HCPCS: 0241U; 36415; 71045; 74176; 80048; 80053; 80076; 81001; 83690; 84484; 85025; 93005; 93308; 99283; 99284

== ENCOUNTER → 2025-01-26 23:00 | Outpatient (BNV) | payer OTHER, SELFPAY | PROVIDERS: PCP Internal Medicine; Visit Provider Internal Medicine Cardiovascular Disease | DX: R94.31 Abnormal electrocardiogram [ECG] [EKG] (principal); R10.9 Unspecified abdominal pain | CPT/HCPCS: 93010 ==

== ENCOUNTER → 2025-01-27 10:31 | Outpatient (BNV) | payer OTHER, SELFPAY | PROVIDERS: Emergency Provider Emergency Medicine; PCP Internal Medicine; Visit Provider Radiology Diagnostic Radiology | DX: N20.0 Calculus of kidney (principal); K57.90 Diverticulosis of intestine, part unspecified, without perforation or abscess without bleeding; I25.10 Atherosclerotic heart disease of native coronary artery without angina pectoris; K42.9 Umbilical hernia without obstruction or gangrene; R07.9 Chest pain, unspecified | CPT/HCPCS: 71045; 74176 ==

== ENCOUNTER → 2025-01-27 11:51 | Outpatient (BNV) | payer OTHER, SELFPAY | PROVIDERS: Emergency Provider Emergency Medicine; PCP Internal Medicine; Visit Provider Internal Medicine Cardiovascular Disease | DX: I31.39 Other pericardial effusion (noninflammatory) (principal) | CPT/HCPCS: 93308 ==

== ENCOUNTER 2025-01-29 06:32 | Emergency (ER) | payer OTHER, SELFPAY ==
--- NOTE | 2025-01-29 | ECG_ITS ---
Test Reason : anxiety/palpatations/SOB Blood Pressure : */* mmHG Vent. Rate : 86 BPM Atrial Rate : 86 BPM P-R Int : 138 ms QRS Dur : 74 ms QT Int : 364 ms P-R-T Axes : 59 11 41 degrees QTcB Int : 435 ms Normal sinus rhythm Normal ECG When compared with ECG of 26-Jan-2025 23:26, No significant change was found Referred By: Generic ED Physician Electronically Signed By: CAROLINA HOYT MD
--- NOTE | ~2025-01-29 | CT_ITS ---
EXAMINATION: CT ANGIOGRAM CHEST CLINICAL INFORMATION: D dimer, shortness of breath COMPARISON: None available. TECHNIQUE: Multiple axial images were obtained through the chest after the administration of 50 mL of Omnipaque 350 intravenous contrast. Extensive vascular post-processing including two-dimensional and three-dimensional reformatted images were created and reviewed on an independent workstation. This CT examination was performed using dose optimization techniques as appropriate, variously including the following: *Automated exposure control *Adjustment of mA and/or kV according to patient size (this includes techniques or standardized protocols for targeted exams where dose is matched to indication/reason for exam; i.e. extremities or head) *Use of iterative reconstruction technique DLP: 204. FINDINGS: Vascular: There is no intraluminal filling defect seen to suspect PE. The pulmonary artery is of normal caliber. The thoracic aorta is of normal caliber without aneurysm or dissection. There is four-vessel branching of the arch. Heart size is normal. Mild coronary artery calcification seen. No pericardial effusion noted. Nonvascular: Central trachea and the bronchi are widely patent. Thyroid lobes are symmetrical and normal. No mediastinal mass, lymphadenopathy or hematoma seen. There is no pleural effusion or thickening. No visible pneumothorax. The axilla and the chest wall is unremarkable. Visualized liver, spleen, pancreas and adrenal glands are unremarkable. The gallbladder has been surgically removed. No aggressive lytic or sclerotic process seen except for mild ventral dorsal spine spondylosis. CT/CT angio chest PE protocol IMPRESSION: No evidence of PE. No evidence of aortic dissection or aneurysm. Fleischner guidelines were followed. Electronically signed by: Jeremy Kennedy MD 01/29/2025 10:42 AM [facility]
--- NOTE | ~2025-01-29 | XR_ITS ---
EXAMINATION: XR CHEST CLINICAL INFORMATION: sob COMPARISON: None available. TECHNIQUE: Frontal view of the chest was obtained. FINDINGS: No significant abnormality is noted involving the heart, lungs, mediastinum, bony thorax or soft tissues. XR/XR chest 1V IMPRESSION: Unremarkable chest examination. Electronically signed by: Jeremy Kennedy MD 01/29/2025 07:04 AM [facility]
[2025-01-29 06:35] VITALS: BP 142/78; PULSE 90; O2SAT 98; BMI 22.9
[2025-01-29 06:39] VITALS: BP 123/55; PULSE 80; RESP 16; TEMP 36.6; O2SAT 98
--- NOTE | 2025-01-29 06:41 | ED_ITS ---
HPI - General Adult General Chief complaint: Abdominal Pain Stated complaint: ABDOMINAL PAIN X 3 DAYS, ANXIETY Time Seen by Provider: 01/29/25 06:39 Source: patient, EMS and piano accompanist (all interactions with this patient were facilitated with an [facility] industrial maintenance electrician) Mode of arrival: EMS Limitations: language barrier (all interactions with this patient were facilitated with an [facility] industrial maintenance electrician) History of Present Illness ED Provider: Hiral Isbell PA-C HPI narrative: Patient is a 64 year old assigned female at with a history of anxiety, DM, GERD, HTN, and CAD with recent [place] (3 stents placed in December 2024), presenting to the emergency department today with continued epigastric pain. Patient states that she woke up with dyspnea and epigastric pain. Patient states that she woke up out of her sleep with epigastric pain and felt short of breath. Patient states that the shortness of breath has improved but the epigastric pain continues. Patient denies any dizziness, lightheadedness, nausea, vomiting, fever, chills, blurry vision, double vision, loss of vision, chest pain, back pain, night sweats, pain with urination, increased urinary frequency, increased urinary urgency, blood in her urine or stool, syncope or a near syncopal episode, recent trauma or falls, bowel incontinence, bladder incontinence, or any other complaints at this time. Relieving factors: none Exacerbating factors: none Associated symptoms: shortness of breath (now resolved) Treatments prior to arrival: none Related Data Home Medications ?Medication ?Instructions ?Recorded ?Confirmed blood glucose control high and low #1 ea 09/07/20 01/26/25 solution (FreeStyle Control solution) lancets 33 gauge (TRUEplus Lancets) #100 ea 11/29/23 01/26/25 aspirin 81 mg tablet,delayed 81 mg PO DAILY 11/20/24 01/26/25 release (Adult Low Dose Aspirin) levothyroxine 150 mcg tablet 150 mcg PO DAILY@0600 12/03/24 01/26/25 melatonin 5 mg capsule 5 mg PO BEDTIME 12/03/24 01/26/25 linagliptin 5 mg tablet (Tradjenta) mg PO DAILY 01/08/25 01/26/25 atorvastatin 80 mg tablet 80 mg PO BEDTIME 01/26/25 01/26/25 isosorbide mononitrate 30 mg 30 mg PO DAILY 01/26/25 01/26/25 tablet,extended release 24 hr Previous Rx's ?Medication ?Instructions ?Recorded pen needle, diabetic 32 gauge x #100 ea 11/02/20 (BD Corin 2nd Gen Pen Needle) pen needle, diabetic 32 gauge x #100 ea 04/18/22 (BD Ultra-Fine Corin Pen Needle) lancets 28 gauge (FreeStyle #100 ea 11/29/23 Lancets) cholecalciferol (vitamin D3) 50 50 mcg PO DAILY #90 caps 08/26/24 mcg (2,000 unit) capsule fluoxetine 10 mg capsule 10 mg PO DAILY #90 caps 10/03/24 metformin 1,000 mg tablet 1,000 mg PO BID #180 tabs 10/21/24 blood pessure cuff #1 ea 11/28/24 blood sugar diagnostic (FreeStyle #100 ea 11/28/24 Lite Strips) blood-glucose meter (FreeStyle #1 ea 11/28/24 Lite Meter kit) metoprolol succinate 50 mg 50 mg PO DAILY #90 tabs 12/02/24 tablet,extended release 24 hr ticagrelor 90 mg tablet (Brilinta) 90 mg PO BID #60 tabs 12/12/24 ferrous sulfate 325 mg (65 mg 325 mg PO BID #60 tabs 12/15/24 iron) tablet losartan 25 mg tablet 25 mg PO DAILY #90 tabs 12/31/24 insulin glargine 100 unit/mL (3 15 unit (0.15 mL) subcut DAILY 30 01/14/25 mL) subcutaneous pen (Lan days #15 mL Solostar U-100 Insulin) pen needle, diabetic 32 gauge x #100 ea 01/14/25 (BD Ultra-Fine Corin Pen Needle) dapagliflozin propanediol 10 mg 10 mg PO DAILY #90 tabs 01/20/25 tablet (Farxiga) alprazolam 0.25 mg tablet 0.25 mg PO DAILY PRN anxiety #15 01/26/25 tabs Allergies Allergy/AdvReac Type Severity Reaction Status Date / Time penicillin V Allergy Unknown hives Verified 01/29/25 06:43 Penicillins [PENICILLINS] Allergy Unknown RASH,DIZZIN Verified 01/29/25 06:43 ESS Review of Systems 2 Constitutional: Constitutional: Reports no additional constitutional complaints, Denies chills, Denies fever(s) and Denies night sweats Eyes: Eyes: Reports no additional eye complaints, Denies blurry vision, Denies change in vision, Denies diplopia, Denies eye discharge, Denies loss of vision and Denies eye pain ENT: Denies dizziness Cardiovascular: Cardiovascular: Reports no additional cardiovascular complaints, Denies chest pain, Denies lightheadedness, Denies Loss of Consciousness and Reports dyspnea (now resolved) Respiratory: Respiratory: Reports no additional respiratory complaints and Reports dyspnea (now resolved) Gastrointestinal: Gastrointestinal: Reports no additional gastrointestinal complaints, Reports abdominal pain (epigastric pain), Denies melena, Denies hematochezia, Denies change in bowel habits and Denies change in stool character Genitourinary: Genitourinary: Denies hematuria, Denies urinary frequency, Denies dysuria, Denies urinary incontinence, Denies urinary hesitancy and Denies urinary urgency Musculoskeletal: Musculoskeletal: Reports no additional musculoskeletal complaints, Denies numbness and Denies tingling Neurologic: Denies dizziness, Denies loss of vision, Denies numbness and Denies tingling Psychiatric: Psychiatric: Reports no additional psychiatric complaints Endocrine: Endocrine: Reports no additional endocrine complaints Hematologic/Lymphatic: Hematologic/Lymphatic: Reports no additional hematologic/lymphatic complaints Allergic/Immunologic: Allergic/Immunologic: Reports no additional allergic/immunologic complaints [facility] Past Medical History Attestation statement: The following information was validated with the patient. Source: old records reviewed and nursing notes reviewed Medical History Dermatomyositis Elevated CK CAD (coronary artery disease) STEMI (ST elevation myocardial infarction) GERD (gastroesophageal reflux disease) Physical exam, pre-employment Sebaceous cyst RUQ pain Cervical polyp Muscle strain of right scapular region H. pylori infection Overweight (BMI 25.0-29.9) Hypertension Hypothyroidism senior living (current) use of insulin Diabetes type 2, uncontrolled Surgical History History of coronary artery stent placement Hx of tubal ligation Hx of cholecystectomy Family History Family History Unknown No problems noted. Father Diabetes Heart disease Mother Diabetes Hypertension Heart disease Brother Lung cancer Sister Heart disease Social History Social History Household Members: Family Housing: House Are you a primary health care liaison to a significant other at home: No Do you presently have visiting nurse or other home services: Yes Unable to assess alcohol history related to: Unknown Alcohol intake: never Patient Tobacco Use Status: Never used Tobacco Tobacco use type: Cigarette e-Cigarette/Vaping Use: Never Used Second Hand Smoke Exposure: No Use of substances other than those prescribed or required for medical reasons: No Advance Directives: Yes Advance Directives Information Provided: No Advance Directives on File: No Do you have a plan to hurt others: No Plan service: No Current occupational status: employed and disabled 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 Cognitive needs: No Hearing needs: No Vision needs: No Physical Exam ED Vital Signs: Vital Signs - 24 hr 01/29/25 06:39 01/29/25 07:24 01/29/25 10:46 Temperature 97.8 F 97.5 F 98.3 F Pulse Rate 80 90 86 Respiratory Rate 16 14 19 Blood Pressure 123/55 L 139/57 L 123/67 Pulse Oximetry 98 99 97 Oxygen Delivery Method Room Air Room Air Room Air 01/29/25 11:51 Temperature 98.3 F Pulse Rate 86 Respiratory Rate 19 Blood Pressure 123/67 Pulse Oximetry 97 Oxygen Delivery Method Room Air BMI result Body Mass Index 22.9 Const General: cooperative, no acute distress, alert and awake Nutritional Appearance: well nourished Orientation/consciousness: patient oriented x3 Limitations: no limitations HENMT Head: Yes normal to inspection and Yes atraumatic Ears: hearing grossly normal bilaterally and external ears normal General nose exam: Normal external nose present, no nasal discharge noted and no epistaxis Face and sinus: Yes normal facial exam, No abrasion and No laceration Mouth: Normal oral and palatal mucosa present, no drooling and no muffled voice Eyes General: appearance normal, both eyes and all related structures Periorbital: periorbital findings normal Eyelids: Yes eyelids normal Conjunctivae: conjunctivae normal Pupils: Equal, round and reactive pupils present EOM: EOMs intact bilaterally Neck Neck: Yes normal visual inspection, Yes full ROM and Yes no lymphadenopathy Chest Chest palpation & inspection: normal inspection of the chest Resp Effort & Inspection: normal respiratory effort and able to speak in complete sentences GI Inspection: Yes normal to inspection Neuro General: patient oriented x3, moves all extremities and CN's II-XI intact bilaterally Cranial nerves: Yes Equal, round and reactive pupils present Cognition (Neuro): normal cognition Extrem General: Yes normal to inspection, Yes full ROM and Yes capillary refill normal Psych Appearance: grossly normal Mental Status: mental status grossly normal Affect: normal affect Attitude: cooperative Thought process: Normal thought process present Thought content: Normal thought content present Insight: Good insight present (Psych) Medications Administered Discontinued Medications Generic Name Dose Route Start Last Admin Trade Name Alexsandra PRN Reason Stop Dose Admin Al Hydroxide/Mg Hydroxide 15 ml 01/29/25 06:47 01/29/25 07:19 Magnesium Hydrox/Alum Hydrox 30 Ml Oral.Susp PO 01/29/25 06:48 15 ml ONCE ONE Administration Iohexol 100 ml 01/29/25 10:01 01/29/25 10:02 Iohexol 350 Mg/Ml 100 Ml Infus..Btl IV 01/29/25 10:02 65 ml ONCE ONE Administration Iohexol 65 ml 01/29/25 10:02 01/29/25 10:02 Iohexol 350 Mg/Ml 100 Ml Infus..Btl IV 01/29/25 10:03 65 ml ONCE ONE Administration Pantoprazole Sodium 40 mg 01/29/25 06:47 01/29/25 07:19 Pantoprazole Sodium 40 Mg/10 Ml Vial IVPUSH 01/29/25 06:48 40 mg ONCE ONE Administration Medical Decision Making Medical Decision Making [facility] Narrative: Patient is a 64 year old assigned female at with a history of anxiety, DM, GERD, HTN, and CAD with recent [place] (3 stents placed in December 2024), presenting to the emergency department today with continued epigastric pain. Patient's physical exam was unremarkable. Patient's blood work showed a mildly elevated WBC count of 11.1, AST of 175, ALT of 250, initial trop of 7.9 with a 3 hour rpt of 6.4, and d dimer of 253. Patient's urine showed no acute process. Patient's EKG was unremarkable. Patient's chest x-ray showed no acute process. Patient's CT PE study showed no acute process. Patient's clinical presentation is most consistent with epigastric pain and not cardiac ischemia or event. I explained my physical exam findings as well as all test results to the patient. I answered all questions asked by the patient. I stressed the importance of the patient taking her medication as directed (either prescribed or as the over the counter packaging recommends). I stressed the importance of the patient following up with her primary care provider and GI specialist. I stressed the importance of the patient returning to the emergency department immediately if her symptoms were to worsen or if she were to develop any dizziness, shortness of breath, difficulty breathing, chest pain, blurry vision, loss of vision, nausea, vomiting, abdominal pain, fever, chills, back pain, or any other complaints. Patient verbalized agreement and understanding with this treatment plan and discharge. Differential Diagnosis Differential Diagnoses: The differential diagnosis associated with the presentation includes Palpitations GERD STEMI NSTEMI Admission/Observation Consideration of admission/observation: Escalation of care including admission/observation considered Patient would have been admitted to the hospital had her work up had any findings where hospital admission was appropriate and her clinical presentation warranted hospital admission. Lab Data [facility] Lab Attestation statement: I reviewed the patient's lab results. My interpretation of these results are in the [facility] Rationale portion of this note. 01/29/25 07:10 01/29/25 07:10 Labs: Lab Results 01/29/25 01/29/25 01/29/25 Range/Units 07:10 07:24 10:59 WBC 11.1 H (4.8-10.8) X10*3/uL RBC 4.57 (4.20-5.50) X10*6/uL Hgb 11.8 L (12.0-16.0) g/dl Hct 36.6 L (37.0-47.0) % MCV 80.1 (80.0-98.0) fL MCH 25.8 L (27.0-33.0) pg MCHC 32.2 (31.0-35.0) g/dl RDW 14.9 (11.0-16.0) % Plt Count 463 H (160-400) X10*3/uL MPV 8.7 L (9.4-12.3) fL Immature Gran % (Auto) 0.4 (0.0-0.4) % Neut % (Auto) 84.0 H (45-73) % Lymph % (Auto) 9.8 L (20-40) % [place] % (Auto) 4.4 (2-11) % Eos % (Auto) 1.1 (0-4) % Baso % (Auto) 0.3 (0-2) % Lymph # (Auto) 1.1 L (1.2-4.9) X10*3/uL [place] # (Auto) 0.5 (0.1-1.2) X10*3/uL Eos # (Auto) 0.1 (0.0-0.4) X10*3/uL Baso # (Auto) 0.0 (0.0-0.2) X10*3/uL Abs Immat Gran (auto) 0.04 H (0.00-0.03) X10*3/uL Absolute Neuts (auto) 9.3 H (2.0-8.3) x10*3/uL Absolute Nucleated RBC 0.000 (0.0-0.012) X10*3/uL Nucleated RBC % (auto) 0.0 (0.0-0.2) /100WBC PT 10.3 L (10.9-12.4) SEC INR 0.9 (0.9-1.1) APTT 28.7 (26.0-36.8) SEC D-Dimer High Sensitivty 253 NG/ML Sodium 141 (135-145) mmol/L Potassium 4.2 (3.3-5.1) mmol/L Chloride 105 (96-108) mmol/L Carbon Dioxide 27 (22-29) mmol/L Anion Gap 13 (12-20) BUN 14 (9-16) mg/dL Creatinine 0.61 (0.5-1.4) mg/dL Estim Creat Clear Calc 82.5 Estimated GFR > 60 Random Glucose 174 H (60-115) mg/dL Calcium 9.4 (8.4-10.2) mg/dL Magnesium 1.6 (1.6-2.6) mg/dL Total Bilirubin 0.4 (0.0-1.0) mg/dL AST 175 H (5-31) U/L ALT 250 H (0-31) U/L Alkaline Phosphatase 71 (39-117) U/L Troponin I High Sens 7.9 6.4 (<3.5-17.0) ng/L B-Natriuretic Peptide 28 (<100) pg/mL Total Protein 7.2 (6.5-8.0) g/dL Albumin 3.9 (3.5-5.0) g/dL Lipase 41 (8-78) U/L Urine Color Yellow Urine Appearance Clear Urine pH 6.0 (5.0-9.0) Ur Specific [place] 1.020 (1.005-1.025) Urine Protein Negative (Neg-Trace) mg/dL Urine Glucose (UA) >=1000 H (Negative) mg/dL Urine Ketones 15 (Negative) mg/dL Urine Blood Trace H (Negative) Urine Nitrite Negative (Negative) Ur Leukocyte Esterase Negative (Negative) Urine RBC 0-2 (0-2) /HPF Urine WBC 0-5 (0-5) /HPF Ur Squamous Epith Cells 0-2 (0-2) /HPF Urine Bacteria None Seen (None Seen) Hyaline Casts 0-2 (0-2) /LPF Independent Interpretation I performed an independent interpretation of an: EKG, Plain X-Ray and CT Scan Interpretation: My interpretation is in agreement with the radiologist's impression of these imaging studies. L EXAMINATION: XR CHEST CLINICAL INFORMATION: sob COMPARISON: None available. TECHNIQUE: Frontal view of the chest was obtained. FINDINGS: No significant abnormality is noted involving the heart, lungs, mediastinum, bony thorax or soft tissues. XR/XR chest 1V IMPRESSION: Unremarkable chest examination. Electronically signed by: Jeremy Kennedy MD 01/29/2025 07:04 AM EST Dictated By: Jeremy Kennedy MD Signed By: Electronically signed by Jeremy Kennedy MD 01/29/25 0704 Report Number: [id number]: Total DLP = 204.00 mGy-cm EXAMINATION: CT ANGIOGRAM CHEST CLINICAL INFORMATION: D dimer, shortness of breath COMPARISON: None available. TECHNIQUE: Multiple axial images were obtained through the chest after the administration of 50 mL of Omnipaque 350 intravenous contrast. Extensive vascular post-processing including two-dimensional and three- dimensional reformatted images were created and reviewed on an independent workstation. This CT examination was performed using dose optimization techniques as appropriate, variously including the following: *Automated exposure control *Adjustment of mA and/or kV according to patient size (this includes techniques or standardized protocols for targeted exams where dose is matched to indication/reason for exam; i.e. extremities or head) *Use of iterative reconstruction technique DLP: 204. FINDINGS: Vascular: There is no intraluminal filling defect seen to suspect PE. The pulmonary artery is of normal caliber. The thoracic aorta is of normal caliber without aneurysm or dissection. There is four-vessel branching of the arch. Heart size is normal. Mild coronary artery calcification seen. No pericardial effusion noted. Nonvascular: Central trachea and the bronchi are widely patent. Thyroid lobes are symmetrical and normal. No mediastinal mass, lymphadenopathy or hematoma seen. There is no pleural effusion or thickening. No visible pneumothorax. The axilla and the chest wall is unremarkable. Visualized liver, spleen, pancreas and adrenal glands are unremarkable. The gallbladder has been surgically removed. No aggressive lytic or sclerotic process seen except for mild ventral dorsal spine spondylosis. CT/CT angio chest PE protocol IMPRESSION: No evidence of PE. No evidence of aortic dissection or aneurysm. Fleischner guidelines were followed. Electronically signed by: Jeremy Kennedy MD 01/29/2025 10:42 AM [facility] Dictated By: Jeremy Kennedy MD Signed By: Electronically signed by Jeremy Kennedy MD 01/29/25 1042 I independently interpreted this EKG and am in agreement with the below findings: Vent. Rate: 86 BPM Atrial Rate: 86 BPM P-R Int: 138 ms QRS Dur: 74 ms QT Int: 364 ms P-R-T Axes: 59 11 41 degrees QTcB Int: 435 ms Normal sinus rhythm Normal ECG When compared with ECG of 26-Jan-2025 23:26, No significant change was found Electronically Signed By: DORIAN HOYT MD Dictated By: Dorian Hoyt MD Signed By: Electronically signed by Dorian Hoyt MD 01/29/25 0934 Radiology Impression Discussion of test interpretation with radiology: I have reviewed the radiologist's reading. Chronic Conditions Patient?s care impacted by: Diabetes and Hypertension Discharge Plan Discharge Clinical Impression: Acute epigastric pain Patient Disposition: Home, Self-Care Instructions: Epigastric Pain (ED) Additional Instructions: Your work up today was reassuring. There is no evidence of an emergent cause for your epigastric pain. I am suspicious this is your GERD worsening. You should follow up with your GI specialist about this. Esqueda examen de hoy fue tranquilizador. No hay evidencia de mira causa emergente para esqueda dolor epig?strico. Sospecho que se trata de un empeoramiento de esqueda ERGE. Usted debe seguir con esqueda gastroenter?logo acerca de esto. Follow up with your primary care provider. Return to the emergency department immediately if your symptoms worsen or if you develop any dizziness, shortness of breath, difficulty breathing, chest pain, blurry vision, loss of vision, nausea, vomiting, abdominal pain, fever, chills, back pain, or any other complaints. Presley?seguimiento?con esqueda m?dico de atenci?n primaria. Acuda inmediatamente al servicio de urgencias si ramo s?ntomas empeoran o si presenta falta de aliento, dificultad para respirar, dolor tor?cico, mareos, aturdimiento, dolor de espalda, dolor abdominal, fiebre, escalofr?os o cualquier otro s?ntoma. Please see the information below about our Patient Portal. If you are not yet enrolled in the [facility] Patient Portal, you will receive an enrollment email invitation following your visit to any [facility] care setting. You may also self-enroll in the Patient Portal by visiting our website: [email or web address] The following information is required to access the Patient Portal: - Your [facility] Medical Record Number - Your personal home email address (must match what is in your electronic medical record, Registration staff can assist with this) - Name - Date of Capabilities of the Patient Portal: - Message some providers - View upcoming appointments - Access your health summary, medical history, and visit history - View current conditions and allergies - View procedure and lab results - View your medications, including guidelines, side effects, and precautions - Complete pre-appointment questionnaires requested by your provider - Ready summary reports of your office visits and procedures To access the Patient Portal Mobile Jasson, follow these directions: - Search Contents First in the Jasson Store or [email or web address] Store - Download the Jasson - Search for [facility] - Enter your login/password Portal del paciente Si usted no esta inscrito en el portal de pacientes de [facility], recibira mira invitacion de inscripcion despues de esqueda visita al [facility] o al [facility] via correo electronico. Tambien puede inscribirse voluntariamente en el portal de pacientes visitando nuestra pagina web: [email or web address] La siguiente informacion sera requerida para acceder al portal: - Esqueda eloina de historia medica de [facility] - Esqueda direccion de correo electronico personal - Nombre - Fecha de nacimiento Capacidades: Las siguientes capacidades estan disponibles en el portal de pacientes: - Enviar mensajes a algunos doctores - Verificar proximas citas - Acceso a esqueda historial de deanna, registro medico e historial de visitas - Ed las condiciones actuales y alergias ed procedimientos y resultados del laboratorio - Ed ramo medicamentos, incluyendo las pautas - Efectos secundarios y precauciones - Completar o llenar formularios / cuestionarios de - Citas solicitadas por esqueda doctor - Leer los resumenes de reportes medicos de ramo visitas y procedimientos Mar[place] acceder a la aplicacion movil: - Chana [employer] [facility] en la Jasson Store o [employer] Store - Descargue la aplicacion - [facility] - Ingrese esqueda nombre de usuario / Contrasena Prescriptions: No Action (DME) pen needle, diabetic [BD Corin 2nd Gen Pen Needle] 32 gauge x 5/32 needle See Rx Instructions .MEDSUPPLY Qty: 100 4RF Rx Instructions: once a day cholecalciferol (vitamin D3) 50 mcg (2,000 unit) capsule 50 mcg PO DAILY Qty: 90 3RF fluoxetine 10 mg capsule 10 mg PO DAILY Qty: 90 1RF metformin 1,000 mg tablet 1,000 mg PO BID Qty: 180 1RF (DME) FreeStyle Lite Strips Strip See Rx Instructions .ROUTE .MEDSUPPLY Qty: 100 5RF Rx Instructions: 3 times a day (DME) blood-glucose meter [FreeStyle Lite Meter] Kit See Rx Instructions .Route Qty: 1 0RF Rx Instructions: As directed TID (DME) blood pessure cuff See Rx Instructions .Route .MEDSUPPLY Qty: 1 0RF Rx Instructions: As directed Brilinta 90 mg tablet 90 mg PO BID Qty: 60 11RF ferrous sulfate 325 mg (65 mg iron) Tablet 325 mg PO BID Qty: 60 6RF losartan 25 mg tablet 25 mg PO DAILY Qty: 90 0RF (DME) pen needle, diabetic [BD Ultra-Fine Corin Pen Needle] 32 gauge x 5/32 needle See Rx Instructions .Route Qty: 100 1RF Rx Instructions: As directed insulin glargine [Lantus Solostar U-100 Insulin] 100 unit/mL (3 mL) insulin pen 15 unit subcut DAILY 30 Days Qty: 15 3RF dapagliflozin propanediol [Farxiga] 10 mg tablet 10 mg PO DAILY Qty: 90 0RF levothyroxine 150 mcg tablet 150 mcg PO DAILY@0600 melatonin 5 mg capsule 5 mg PO BEDTIME (DME) lancets [TRUEplus Lancets] 33 gauge misc See Rx Instructions .ROUTE TID Qty: 100 Rx Instructions: As directed check BS TID (DME) lancets [FreeStyle Lancets] 28 gauge misc See Rx Instructions .ROUTE .MEDSUPPLY Qty: 100 11RF Rx Instructions: As directed three times a day (DME) FreeStyle Control Solution See Rx Instructions .ROUTE .MEDSUPPLY Qty: 1 Rx Instructions: As directed (DME) pen needle, diabetic [BD Ultra-Fine Corin Pen Needle] 32 gauge x 5/32 needle See Rx Instructions .ROUTE .MEDSUPPLY Qty: 100 3RF Rx Instructions: As directed once daily aspirin [Adult Low Dose Aspirin] 81 mg tablet,delayed release (DR/EC) 81 mg PO DAILY metoprolol succinate 50 mg tablet extended release 24 hr 50 mg PO DAILY Qty: 90 3RF Tradjenta 5 mg tablet PO DAILY atorvastatin 80 mg tablet 80 mg PO BEDTIME isosorbide mononitrate 30 mg tablet extended release 24 hr 30 mg PO DAILY alprazolam 0.25 mg tablet 0.25 mg PO DAILY PRN (Reason: anxiety) Qty: 15 0RF Referrals: [facility] Gastroenterology Services [Provider Group] (Call to establish and follow up with a GI specialist. If you already have a GI specialist, please follow up with them. Llame para establecer y seguir con un especialista GI. Si ya tiene un especialista gastrointestinal, p?ngase en contacto con ?l.) Conor Garcia MD [Primary Care Provider] - Interventions: ED Discharge Assessment Last Done: 01/29/25 11:51 Discharge Date/Time: 01/29/25 11:56 Print Language: Ukrainian
[2025-01-29 07:12] LABS: MANUAL DIFF FLAG NO
[2025-01-29 07:16] LABS: Basophils Percent Auto 0.3 % (0-2); Eosinophils Absolute Auto 0.1 X10*3/uL (0.0-0.4); Eosinophils Percent Auto 1.1 % (0-4); Hematocrit 36.6 % (37.0-47.0); Hemoglobin 11.8 g/dl (12.0-16.0); Imm Gran Abs Auto 0.04 X10*3/uL (0.00-0.03); Imm Gran Pct Auto 0.4 % (0.0-0.4); Lymphocytes Absolute Auto 1.1 X10*3/uL (1.2-4.9); Lymphocytes Percent Auto 9.8 % (20-40); Mean Corpuscular HGB Conc 32.2 g/dl (31.0-35.0); Mean Corpuscular Hemoglobin 25.8 pg (27.0-33.0); Mean Corpuscular Volume 80.1 fL (80.0-98.0); Mean Platelet Volume 8.7 fL (9.4-12.3); Monocytes Absolute Auto 0.5 X10*3/uL (0.1-1.2); Monocytes Percent Auto 4.4 % (2-11); Neutrophils Absolute Auto 9.3 x10*3/uL (2.0-8.3); Platelet Count 463 X10*3/uL (160-400); Red Blood Count 4.57 X10*6/uL (4.20-5.50); Red Cell Distribution Width 14.9 % (11.0-16.0); White Blood Count 11.1 X10*3/uL (4.8-10.8)
[2025-01-29] MEDS: Pantoprazole Sodium 40 MG/10 ML VIAL IVPUSH (07:19)
[2025-01-29] MEDS: Magnesium Hydrox/Alum Hydrox 30 ML ORAL.SUSP 15 ML PO (07:19)
[2025-01-29 07:24] VITALS: BP 139/57; PULSE 90; RESP 14; TEMP 36.4; O2SAT 99
[2025-01-29 07:40] LABS: Appearance Urine Clear; Color Urine Yellow; Glucose Urine UA >=1000 mg/dL (Negative); Leukocyte Esterase Urine Negative (Negative); Nitrite Urine Negative (Negative); UMIC TRIGGER UACC YES; Urine Blood Trace (Negative); Urine Ketones 15 mg/dL (Negative); Urine Protein Negative (Neg-Trace)
[2025-01-29 07:41] LABS: Alanine Aminotransferase 250 U/L (0-31); Albumin Level 3.9 g/dL (3.5-5.0); Alkaline Phosphatase 71 U/L (39-117); Anion Gap 13 (12-20); Aspartate Amino Transferase 175 U/L (5-31); Bilirubin Total 0.4 mg/dL (0.0-1.0); Blood Urea Nitrogen 14 mg/dL (9-16); Calcium 9.4 mg/dL (8.4-10.2); Carbon Dioxide 27 mmol/L (22-29); Chloride 105 mmol/L (96-108); Creatinine Clr Calc Pharmacy 82.5; Estimated Glomerular Filt Rate > 60; Glucose Random 174 mg/dL (60-115); Lipase 41 U/L (8-78); Potassium 4.2 mmol/L (3.3-5.1); Sodium 141 mmol/L (135-145); Total Protein 7.2 g/dL (6.5-8.0)
[2025-01-29 07:42] LABS: Troponin-I High Sensitivity 7.9 ng/L (<3.5-17.0)
[2025-01-29 07:42] LABS: Bacteria Urine None Seen (None Seen); Hyaline Casts Urine 0-2 /LPF (0-2); RBC Urine 0-2 /HPF (0-2); Squamous Epithelial Cell Urine 0-2 /HPF (0-2); WBC Urine 0-5 /HPF (0-5)
--- OUTSIDE RECORDS SUMMARY | 2025-01-29 07:42 | XMS_ITS | Encounter Summary ---
Author Organization [employer] Address [address] [facility] [address] 7t [place] [address] Care Team Providers Care Flying I Instructor Name Role Phone Unavailable Primary Care Provider Unavailabl e Reason for Visit * Reason Comments Med Refill Encounter Details Date Type Department Care Team (Late st Contact Info) Description 06/17/[address] [facility] MEDICINE [address] [place] [address] Kimberley Cunningham FNP [address] [place] [address] Other hyperlipidemia; Type 2 diabetes mellitus with [...]
--- OUTSIDE RECORDS SUMMARY | 2025-01-29 07:42 | XMS_ITS | Encounter Summary ---
Author Organization [employer] Address [address] [facility] [address] [place] [address] Care Team Providers Care Airline Customer Service Agent Name Role Phone Unavailable Primary Care Provider Unavailabl e Reason for Visit * Reason Comments Med Refill Encounter Details Date Type Department Care Team ([facility] st Contact Info) Description 08/15/2024 Refill [facility] MED & PEDS [address] [place], [place] [phone] Kimberley Cunningham, PRODUCT SUPPORT CONSULTANT [address] [place], [place] [phone] Hypothyroidism, unspecified type Social History Tobacco Use [...]
--- OUTSIDE RECORDS SUMMARY | 2025-01-29 07:42 | XMS_ITS | Encounter Summary ---
Author Organization [employer] Address [address] [facility] [address] 7t [place] [address] Care Team Providers Care Well Logging Mud Analysis Captain Name Role Phone Unavailable Primary Care Provider Unavailabl e Reason for Visit * Reason Comments Med Refill Encounter Details Date Type Department Care Team ([facility] st Contact Info) Description 11/13/2024 Refill [facility] MEDICINE [address] [place] [address] Kimberley Cunningham FNP [address] [place] [address] Type 2 diabetes mellitus without complication, with long-term current use of insulin ([facility]) Social History Tobacco Use Types Packs/Day Years [...] complication, with long-term current use of insulin ([facility]) documented in this encounter Additional Health Concerns Assessment Noted Time PHQ-9 Depression Total Score: 2 01/09/20 23 9:19 AM EST documented as of this encounter
--- OUTSIDE RECORDS SUMMARY | 2025-01-29 07:42 | XMS_ITS | Encounter Summary ---
Author Organization [employer] Address 75 [facility] 7t [place] [address] Care Team Providers Care Air Route Controller Name Role Phone Unavailable Primary Care Provider Unavailabl e Reason for Visit * Reason Comments Med Refill Encounter Details Date Type Department Care Team ([facility] st Contact Info) Description 10/13/2024 Refill [facility] MED & PEDS [address] [place], [place] [phone] Kimberley Cunningham, EILEEN [address] [place] [address] Type 2 diabetes mellitus without complication, with long-term current use of insulin ([facility]) Social History Tobacco Use Types [...] complication, with long-term current use of insulin ([facility]) documented in this encounter Additional Health Concerns Assessment Noted Time PHQ-9 Depression Total Score: 2 01/09/20 23 9:19 AM EST documented as of this encounter
--- OUTSIDE RECORDS SUMMARY | 2025-01-29 07:42 | XMS_ITS | Encounter Summary ---
Author Organization [employer] Address [address] [facility] [address] [address] [place] [address] Care Team Providers Care Vocational Services Specialist Name Role Phone Unavailable Primary Care Provider Unavailabl e Reason for Visit * Reason Comments Med Refill Encounter Details Date Type Department Care Team ([facility] st Contact Info) Description 09/10/2024 Refill [facility] CH[facility] MED & PEDS [address] [place], [place] [phone] Kimberley Cunningham, EILEEN 505 [place], [place] [phone] Depressive disorder Social History Tobacco Use Types [...] t he electric, gas, oil or water [employer] threatened to shut off services in your [...]
--- OUTSIDE RECORDS SUMMARY | 2025-01-29 07:42 | XMS_ITS | Clinical Summary ---
Author Organization [employer] Address [address] [facility] 7t [place] [address] Care Team Providers Care Otolaryngology Rep Name Role Phone Unavailable Primary Care Provider [...] e 2 diabetes mellitus treated with insulin ([facility]) INJECT 8 UNITS SUBCUTANEOUSLY ONCE DAILY IN THE EVENING 15 mL 3 11/01/20 23 Active linaGLIPtin (Tradjenta) 5 MG tabletIndications: Type 2 diabetes mellitus without complication, with long-term current use of insulin ([facility]) TAKE 1 TABLET BY MOUTH EVERYDAY [...] 10 MGIndications:Type 2 diabetes mellitus with hyperglycemia ([facility]) TAKE 1 TABLET BY MOUTH EVERYDAY [...] complication, with long-term current use of insulin ([facility]) TAKE 1 TABLET BY MOUTH TWICE DAILY AT NOON AND IN THE EVENING 180 tablet 1 03/20/20 24 Active lisinopril 20 MG tabletIndications: Primary hypertension TAKE 1 TABLET BY MOUTH AT BEDTIME 90 tablet 2 05/22/20 24 Active FREESTYLE LITE test stripIndications:T ype 2 diabetes mellitus with hyperglycemia ([facility]/HCC) TEST BLOOD SUGAR 3 TIMES A [...] -Pt in the process of re-establishing with [facility] Endo -Per last available [...] Type Department Care Team Description 01/16/2025 Refill [facility] MEDICINE [address] [place] [address] Kimberley Cunningham FNP Type 2 diabetes mellitus with hyperglycemia ([facility]) 01/12/2025 Refill [facility] MEDICINE [address] [place] [address] Kimberley Cunningham FNP Type 2 diabetes mellitus with hyperglycemia ([facility]) 11/13/2024 Refill [facility] MEDICINE [address] [place] [address] Kimberley Cunningham FNP Type 2 diabetes mellitus without complication, with long-term current use of insulin ([facility]) from Last 3 Months Immunizations Name [...] is your housing situation today? I have fracnobruce castro 09/10/[address] you [...] complication, with long-term current use of insulin ([facility]) MAMMOGRAM GENERIC Routine 10/05/2022 10: 20 [...] Legacy Procedure: Mammography Report 1 Kimberley Cunningham TELEPHONIC NURSE CASE MANAGER IMG BI PROCEDURES Final Result * [...] ?? Jesús ROBERTS et al. KORTNEY. 2013;310(19): 2178-4376 ?? ([email or web address]) Non-HDL Cholesterol 87 <130 mg/dL (calc) [facility] Comment: For patients with diabetes plus 1 major ASCVD risk ?? factor, treating to a non-HDL-C goal of <100 mg/dL ?? (LDL-C of <70 mg/dL) is considered a therapeutic ?? option. Triglycerides 91 <150 mg/dL [facility] 10/04/2022 8:50 AM EST Kimberley Cunningham TELEPHONIC NURSE CASE MANAGER LAB BLOOD ORDERABLES Final Res ult [facility] * MICROALBUMIN, RANDOM (07/13/2021 10:40 AM EDT) Creatinine Urine 30.03 mg/dL [facility] Microalbum/Creati nine Ratio Ur TNP ug/mg cr [facility] Comment: Unable to calculate albumin/creatinine ratio due to low microalbumin or creatinine result. Microalbumin Urine <5.0 mg/L [facility] 07/13/2021 10:4 0 AM EDT Historical Provider HISTORICAL/NON ORDERABLE LABS Final Result [facility] [address] * Hm Pap Smear (03/14/2019) Pap [...] Maintenance Insurance [facility] MEDICAID STAND ADULT
--- OUTSIDE RECORDS SUMMARY | 2025-01-29 07:42 | XMS_ITS | Encounter Summary ---
Author Organization [employer] Address [address] [facility] [address] [place] [address] Care Team Providers Care Dyed Yarn Operator Name Role Phone Unavailable Primary Care Provider Unavailabl e Reason for Visit * Reason Comments Med Refill Encounter Details Date Type Department Care Team (Late st Contact Info) Description 01/12/2025 Refill [facility] MEDICINE [address] [place] [address] Kimberley Cunningham FNP [address] [place] [address] Type 2 diabetes mellitus with hyperglycemia (CMS/HCC) [...]
--- OUTSIDE RECORDS SUMMARY | 2025-01-29 07:42 | XMS_ITS | Encounter Summary ---
Author Organization [email or web address] Address [address] [place] [address] Care Team Providers Care Gum Scoring Machine Operator Name Role Phone Unavailable Primary Care Provider Unavailabl e Reason for Visit * Reason Comments Med Refill Encounter Details Date Type Department Care Team (Late st Contact Info) Description 05/21/2024 Refill [facility] MEDICINE [address] [place] [address] Kimberley Cunningham FNP [address] [place] [address] Primary hypertension Social History Tobacco Use Types [...] t he electric, gas, oil or water [employer] threatened to shut off services in your [...]
--- OUTSIDE RECORDS SUMMARY | 2025-01-29 07:42 | XMS_ITS | Encounter Summary ---
Author Organization [employer] Address [address] [facility] [address] 7[address] [place] [address] Care Team Providers Care Furnace Packer Name Role Phone Unavailable Primary Care Provider Unavailabl e Reason for Visit * Reason Comments Med Refill Encounter Details Date Type Department Care Team (Late st Contact Info) Description 05/20/2024 Refill [facility] MEDICINE [address] [place] [address] Kimberley Cunningham FNP [address] [place] [address] Primary hypertension Social History Tobacco Use Types [...] t he electric, gas, oil or water [employer] threatened to shut off services in your [...]
--- OUTSIDE RECORDS SUMMARY | 2025-01-29 07:42 | XMS_ITS | Encounter Summary ---
Author Organization [employer] Address [address] [facility] [address]t [place] [address] Care Team Providers Care Television Production Clerk Name Role Phone Unavailable Primary Care Provider Unavailabl e Reason for Visit * Reason Comments Med Refill Encounter Details Date Type Department Care Team (Late st Contact Info) Description 08/12/2024 Refill [facility] MEDICINE 230 [place] [address] Kimberley Cunningham FNP [address] [place] [address] Vitamin D insufficiency Social History Tobacco Use [...] the past 12 months, has t he [employer], gas, oil or water company threatened to [...]
--- OUTSIDE RECORDS SUMMARY | 2025-01-29 07:42 | XMS_ITS | Encounter Summary ---
Author Organization [employer] Address [address] [facility] [address]t [place] [address] Care Team Providers Care Mirror Inspector Name Role Phone Unavailable Primary Care Provider Unavailabl e Reason for Visit * Reason Comments Med Refill Encounter Details Date Type Department Care Team (Late st Contact Info) Description 01/16/[address] [facility] MEDICINE [address] [place] [address] Kimberley Cunningham FNP [address] [place] [address] Type 2 diabetes mellitus with hyperglycemia (CMS/HCC) [...]
--- OUTSIDE RECORDS SUMMARY | 2025-01-29 07:43 | XMS_ITS | Encounter Summary ---
Author Organization [employer] Address [address] [facility] [address] [place] [address] Care Team Providers Care Payroll Processor Name Role Phone Kimberley Cunningham INSPECTOR METAL CAN Primary Care Provider [phone] Encounter Details Date Type Department Care Team (Late st Contact Info) Description 10/12/2023 Abstract [facility] MEDICINE [address] [place], [place] [phone] Sandra Villareal Social History Tobacco Use Types [...] documented as of this encounter Care Teams Payroll Processor Relationship Specialty Start Date End Date Kimberley Cunningham FNP [address] [place] [address] PCP - General Family Medicine 07/23/22 03/20/24 documented as of this encounter
--- OUTSIDE RECORDS SUMMARY | 2025-01-29 07:43 | XMS_ITS | Encounter Summary ---
Author Organization [employer] Address [address] [facility] 7t [place] [address] Care Team Providers Care Window Unit Air Conditioning Mechanic Name Role Phone Kimberley Cunningham Primary Care Provider [phone] Reason for Visit * Reason Comments Med Refill Encounter Details Date Type Department Care Team ([facility] st Contact Info) Description 07/26/2023 Refill [facility] MEDICINE [address] [place] [address] Kimberley Cunningham FNP [address] [place] [address] Depressive disorder Social History Tobacco Use Types [...] documented as of this encounter Care Teams Window Unit Air Conditioning Mechanic Relationship Specialty Start Date End Date Kimberley Cunningham FNP [address] [place] [address] PCP - General Family Medicine 07/23/22 03/20/24 documented as of this encounter
--- OUTSIDE RECORDS SUMMARY | 2025-01-29 07:43 | XMS_ITS | Encounter Summary ---
Author Organization [email or web address] [facility] Address [address] [facility] 7t [place] [address] Care Team Providers Care Energy Specialist Name Role Phone Kimberley Cunningham Primary Care Provider [phone] Encounter Details Date Type Department Care Team (Latest Contact Info) Description 01/20/2021 Abstract [facility] CONVERSIONS [...] on filedocumented in this encounter Care Teams Energy Specialist Relationship Specialty Start Date End Date Kimberley Cunningham FNP [address] [place] [address] PCP - General Family Medicine 07/23/22 03/20/24 documented as of this encounter
--- OUTSIDE RECORDS SUMMARY | 2025-01-29 07:43 | XMS_ITS | Encounter Summary ---
Author Organization [facility] Address [address] [facility] 7t [place] [address] Care Team Providers Care Converter Supervisor Name Role Phone Kimberley Cunningham Primary Care Provider [phone] Encounter Details Date Type Department Care Team (Latest Contact Info) Description 01/07/2020 Abstract [facility] CONVERSIONS Dental, [...] on filedocumented in this encounter Care Teams Converter Supervisor Relationship Specialty Start Date End Date Kimberley Cunningham FNP [address] [place] [address] PCP - General Family Medicine 07/23/22 03/20/24 documented as of this encounter
--- OUTSIDE RECORDS SUMMARY | 2025-01-29 07:43 | XMS_ITS | Encounter Summary ---
Author Organization [employer] Address [address] [facility] 7t [place] [address] Care Team Providers Care Home Mortgage Disclosure Act Specialist Name Role Phone Kimberley Cunningham LPN MEDICAL ASSISTANT Primary Care Provider [phone] Reason for Visit * Reason Comments Med Refill Encounter Details Date Type Department Care Team ([facility] st Contact Info) Description 09/08/2023 Refill [facility] MEDICINE [address] [place], [place] [phone] Jojo Washburn MD [address] [place], [place] [phone] Depressive disorder Social History Tobacco Use Types [...] documented as of this encounter Care Teams Home Mortgage Disclosure Act Specialist Relationship Specialty Start Date End Date Kimberley Cunningham FNP [address] [place] [phone] PCP - General Family Medicine 07/23/22 03/20/24 documented as of this encounter
[2025-01-29 07:50] LABS: INTERNATIONAL NORM RATIO 0.9 (0.9-1.1); Prothrombin Time 10.3 SEC (10.9-12.4)
[2025-01-29 07:52] LABS: D Dimer High Sensitivity 253 NG/ML; Partial Thromboplastin Time 28.7 SEC (26.0-36.8)
[2025-01-29 07:53] LABS: Magnesium 1.6 mg/dL (1.6-2.6)
[2025-01-29 08:56] LABS: B Type Natriuretic Peptide 28 pg/mL (<100)
[2025-01-29] MEDS: iohexoL 350 MG/ML 100 ML INFUS..BTL 65 ML IV (10:02)
[2025-01-29] MEDS: iohexoL 350 MG/ML 100 ML INFUS..BTL IV (10:02)
[2025-01-29 10:46] VITALS: BP 123/67; PULSE 86; RESP 19; TEMP 36.8; O2SAT 97
[2025-01-29 11:22] LABS: Troponin-I High Sensitivity 6.4 ng/L (<3.5-17.0)
[2025-01-29 11:51] VITALS: BP 123/67; PULSE 86; RESP 19; TEMP 36.8; O2SAT 97
== END 2025-01-29 11:56 | disposition home or self-care (01) ==
PROVIDERS: Physician Assistant Medical; Emergency Provider Emergency Medicine; PCP Internal Medicine
DX: R10.13 Epigastric pain (principal); R06.02 Shortness of breath; I25.10 Atherosclerotic heart disease of native coronary artery without angina pectoris; R00.2 Palpitations; I10 Essential (primary) hypertension; F41.9 Anxiety disorder, unspecified; Z79.899 Other long term (current) drug therapy
CPT/HCPCS: 36415; 71045; 71275; 80053; 81001; 83690; 83735; 83880; 84484; 85025; 85379; 85610; 85730; 93005; 96374; 99284; 99285; J2470; Q9967

== ENCOUNTER → 2025-01-29 06:49 | Outpatient (BNV) | payer OTHER, SELFPAY | PROVIDERS: Emergency Provider Emergency Medicine; PCP Internal Medicine; Visit Provider Internal Medicine Cardiovascular Disease | DX: F41.9 Anxiety disorder, unspecified (principal); R00.2 Palpitations; R06.02 Shortness of breath | CPT/HCPCS: 93010 ==

== ENCOUNTER → 2025-01-29 06:50 | Outpatient (BNV) | payer OTHER, SELFPAY | PROVIDERS: Emergency Provider Emergency Medicine; PCP Internal Medicine; Visit Provider Radiology Diagnostic Radiology | DX: R79.1 Abnormal coagulation profile (principal); R06.02 Shortness of breath | CPT/HCPCS: 71045; 71275 ==

== ENCOUNTER 2025-02-04 14:03 | Emergency (ER) | payer OTHER, SELFPAY ==
--- NOTE | ~2025-02-04 | XR_ITS ---
CLINICAL HISTORY: pain 1 view chest x-ray Comparison: CT/SR - CT ANGIO CHEST PE PROTOCOL - 01/29/25 08:53 EST CR/SR - XR CHEST 1V - 01/29/25 06:50 EST CR/SR - XR CHEST 1V - 01/27/25 11:04 EST Findings: No consolidation or effusion. Heart size is normal. No acute fracture. IMPRESSION: 1. No acute findings. This document has been electronically signed by: Ephraim Don MD on 02/04/2025 21:07:58
--- NOTE | 2025-02-04 14:06 | ECG_ITS ---
Test Reason : PAIN Blood Pressure : */* mmHG Vent. Rate : 80 BPM Atrial Rate : 80 BPM P-R Int : 130 ms QRS Dur : 80 ms QT Int : 350 ms P-R-T Axes : 51 9 54 degrees QTcB Int : 403 ms Normal sinus rhythm Normal ECG When compared with ECG of 29-Jan-2025 06:49, No significant change was found Referred By: Norm Winston Electronically Signed By: JULIO CESAR ABDI
[2025-02-04 14:26] VITALS: BP 139/76; PULSE 88; RESP 16; TEMP 36.6; O2SAT 98; BMI 21.1
--- NOTE | 2025-02-04 14:30 | ED_ITS ---
HPI - Chest Pain General Chief Complaint: Chest Pain Stated Complaint: Chest Pain Body Feels Heavy Time Seen by Provider: 02/04/25 20:06 Source: patient and family Limitations: language barrier History of Present Illness ED Provider: Leah Zhou PA-C HPI narrative: 64-year-old female with a history of hypertension, hyperlipidemia, diabetes, known coronary artery disease, hypothyroidism, GERD, constipation, chronic pain, who presents with chest pain. Within the past few weeks, the patient had acute coronary syndrome, she was hospitalized for 4 days. Since, she has felt generalized weakness and fatigue, over the past few days she has been having intermittent stabbing chest pain. Patient was asymptomatic at this time. Denies associated shortness of breath, diaphoresis, nausea, vomiting. Denies recent cough or cold symptoms no fevers. Related Data Home Medications ?Medication ?Instructions ?Recorded ?Confirmed blood glucose control high and low #1 ea 09/07/20 01/26/25 solution (FreeStyle Control solution) lancets 33 gauge (TRUEplus Lancets) #100 ea 11/29/23 01/26/25 aspirin 81 mg tablet,delayed 81 mg PO DAILY 11/20/24 01/26/25 release (Adult Low Dose Aspirin) levothyroxine 150 mcg tablet 150 mcg PO DAILY@0600 12/03/24 01/26/25 melatonin 5 mg capsule 5 mg PO BEDTIME 12/03/24 01/26/25 linagliptin 5 mg tablet (Tradjenta) mg PO DAILY 01/08/25 01/26/25 atorvastatin 80 mg tablet 80 mg PO BEDTIME 01/26/25 01/26/25 isosorbide mononitrate 30 mg 30 mg PO DAILY 01/26/25 01/26/25 tablet,extended release 24 hr Previous Rx's ?Medication ?Instructions ?Recorded pen needle, diabetic 32 gauge x #100 ea 11/02/20 532 (BD Corin 2nd Gen Pen Needle) pen needle, diabetic 32 gauge x #100 ea 04/18/22 (BD Ultra-Fine Corin Pen Needle) lancets 28 gauge (FreeStyle #100 ea 11/29/23 Lancets) cholecalciferol (vitamin D3) 50 50 mcg PO DAILY #90 caps 08/26/24 mcg (2,000 unit) capsule fluoxetine 10 mg capsule 10 mg PO DAILY #90 caps 10/03/24 metformin 1,000 mg tablet 1,000 mg PO BID #180 tabs 10/21/24 blood pessure cuff #1 ea 11/28/24 blood sugar diagnostic (FreeStyle #100 ea 11/28/24 Lite Strips) blood-glucose meter (FreeStyle #1 ea 11/28/24 Lite Meter kit) metoprolol succinate 50 mg 50 mg PO DAILY #90 tabs 12/02/24 tablet,extended release 24 hr ticagrelor 90 mg tablet (Brilinta) 90 mg PO BID #60 tabs 12/12/24 ferrous sulfate 325 mg (65 mg 325 mg PO BID #60 tabs 12/15/24 iron) tablet losartan 25 mg tablet 25 mg PO DAILY #90 tabs 12/31/24 insulin glargine 100 unit/mL (3 15 unit (0.15 mL) subcut DAILY 30 01/14/25 mL) subcutaneous pen (Lantus days #15 mL Solostar U-100 Insulin) pen needle, diabetic 32 gauge x #100 ea 01/14/25 (BD Ultra-Fine Corin Pen Needle) dapagliflozin propanediol 10 mg 10 mg PO DAILY #90 tabs 01/20/25 tablet (Farxiga) alprazolam 0.25 mg tablet 0.25 mg PO DAILY PRN anxiety #15 01/26/25 tabs Allergies Allergy/AdvReac Type Severity Reaction Status Date / Time penicillin V Allergy Unknown hives Verified 02/04/25 14:27 Penicillins [PENICILLINS] Allergy Unknown RASH,DIZZIN Verified 02/04/25 14:27 ESS Review of Systems 2 Review of Systems: Yes all other systems are reviewed and are negative Constitutional: Constitutional: Reports fatigue, Denies fever(s) and Reports malaise Cardiovascular: Cardiovascular: Reports chest pain and Denies dyspnea Respiratory: Respiratory: Denies chest congestion, Denies cough, Denies dyspnea and Denies wheezing Gastrointestinal: Gastrointestinal: Denies abdominal pain, Denies nausea and Denies vomiting Endocrine: Endocrine: Reports fatigue Allergic/Immunologic: Allergic/Immunologic: Denies wheezing PMFSH Past Medical History Attestation statement: The following information was validated with the patient. Medical History Dermatomyositis Elevated CK CAD (coronary artery disease) STEMI (ST elevation myocardial infarction) GERD (gastroesophageal reflux disease) Physical exam, pre-employment Sebaceous cyst RUQ pain Cervical polyp Muscle strain of right scapular region H. 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 Father Diabetes Heart disease Mother Diabetes Hypertension Heart disease Brother Lung cancer Sister Heart disease Social History Social History Household Members: Family Housing: House Are you a primary foster care case manager to a significant other at home: No Do you presently have visiting nurse or other home services: Yes Unable to assess alcohol history related to: Unknown Alcohol intake: never Patient Tobacco Use Status: Never used Tobacco Tobacco use type: Cigarette Smoked in Last 30 Days: No e-Cigarette/Vaping Use: Never Used Second Hand Smoke Exposure: No Use of substances other than those prescribed or required for medical reasons: No Advance Directives: No Advance Directives Information Provided: Yes Do you have a plan to hurt others: No Plan Patient : No service: No Current occupational status: employed and disabled Current occupation: [employer] Cognitive needs: No Hearing needs: No Vision needs: No Physical Exam 2 Vital Signs: Vital Signs: Last Vital Signs Temp 98.5 F 02/04/25 20:15 Pulse 77 02/04/25 20:15 Resp 15 02/04/25 20:15 BP 177/86 H 02/04/25 20:15 Pulse Ox 98 02/04/25 20:15 O2 Del Method Room Air 02/04/25 20:15 BMI result Body Mass Index 21.1 Const: Other: Alert well-appearing Orientation/consciousness: patient oriented x3 Resp: Effort & Inspection: normal respiratory effort Cardio: Other: Normal peripheral perfusion Skin: Other: Warm dry no rash Neuro: General: patient oriented x3, gait normal, no focal motor deficits and CN's II-XI intact bilaterally Psych: Other: Cooperative Course Course Course Narrative: RME, this is a rapid medical exam performed by Chava Winston please refer to primary provider for complete H&P- 64-year-old female presents for evaluation of chest heaviness and pain for the last few days previous she also attention are all loss plan for cardiac workup, he was performed on arrival. Medical Decision Making Medical Decision Making MDM Narrative: 64-year-old female with a history of hypertension, hyperlipidemia, diabetes, known coronary artery disease, hypothyroidism, GERD, constipation, chronic pain, who presents with chest pain. Within the past few weeks, the patient had acute coronary syndrome, she was hospitalized for 4 days. Since, she has felt generalized weakness and fatigue, over the past few days she has been having intermittent stabbing chest pain. Patient was asymptomatic at this time. Denies associated shortness of breath, diaphoresis, nausea, vomiting. Denies recent cough or cold symptoms no fevers. Problem: Known coronary artery disease with recent cardiac event History: Per patient I have considered the following differential diagnoses: Viral syndrome, failure to thrive, ACS, pneumonia Plan: Patient here with very weight vague weakness and having intermittent chest discomfort. ACS was clearly considered given her history. Screening labs including a cardiac enzymes EKG and chest x-ray were obtained. Given generalized malaise, thought about viral syndrome, we obtained a viral panel. Thus far her workup is negative. Patient does have anxiety, perhaps she was perseverating over her recent cardiac event. I did offer PT case management, she declines, the daughter is at bedside, and agrees she does not need case management or PT. Labs: Slight leukocytosis, not anemic, no electrolyte abnormality, troponin x2 negative, viral panel negative EKG: Normal sinus rhythm, rate 80, no ischemic changes no ectopy QTC 403 Chest x-ray:Findings: No consolidation or effusion. Heart size is normal. No acute fracture. IMPRESSION: 1. No acute findings. Lab Data 02/04/25 14:55 02/04/25 14:55 Labs: Lab Results 02/04/25 02/04/25 Range/Units 14:55 20:17 WBC 13.7 H (4.8-10.8) X10*3/uL RBC 4.47 (4.20-5.50) X10*6/uL Hgb 11.8 L (12.0-16.0) g/dl Hct 35.7 L (37.0-47.0) % MCV 79.9 L (80.0-98.0) fL MCH 26.4 L (27.0-33.0) pg MCHC 33.1 (31.0-35.0) g/dl RDW 14.9 (11.0-16.0) % Plt Count 487 H (160-400) X10*3/uL MPV 8.9 L (9.4-12.3) fL Immature Gran % (Auto) 0.4 (0.0-0.4) % Neut % (Auto) 84.1 H (45-73) % Lymph % (Auto) 8.8 L (20-40) % Burnet % (Auto) 5.4 (2-11) % Eos % (Auto) 1.0 (0-4) % Baso % (Auto) 0.3 (0-2) % Lymph # (Auto) 1.2 (1.2-4.9) X10*3/uL Burnet # (Auto) 0.7 (0.1-1.2) X10*3/uL Eos # (Auto) 0.1 (0.0-0.4) X10*3/uL Baso # (Auto) 0.0 (0.0-0.2) X10*3/uL Abs Immat Gran (auto) 0.06 H (0.00-0.03) X10*3/uL Absolute Neuts (auto) 11.5 H (2.0-8.3) x10*3/uL Absolute Nucleated RBC 0.000 (0.0-0.012) X10*3/uL Nucleated RBC % (auto) 0.0 (0.0-0.2) /100WBC Sodium 140 (135-145) mmol/L Potassium 4.7 (3.3-5.1) mmol/L Chloride 104 (96-108) mmol/L Carbon Dioxide 24 (22-29) mmol/L Anion Gap 17 (12-20) BUN 13 (9-16) mg/dL Creatinine 0.65 (0.5-1.4) mg/dL Estim Creat Clear Calc 77.4 Estimated GFR > 60 Random Glucose 191 H (60-115) mg/dL Calcium 10.1 D (8.4-10.2) mg/dL Total Bilirubin 0.3 (0.0-1.0) mg/dL AST 279 H (5-31) U/L ALT 376 H (0-31) U/L Alkaline Phosphatase 62 (39-117) U/L Troponin I High Sens 4.4 6.1 (<3.5-17.0) ng/L Total Protein 7.3 (6.5-8.0) g/dL Albumin 4.0 (3.5-5.0) g/dL Lipase 43 (8-78) U/L Influenza Type A (PCR) NEGATIVE (Negative) Influenza Type B (PCR) NEGATIVE (Negative) RSV RNA Qual (PCR) NEGATIVE (Negative) SARS-CoV-2 RNA (RT-PCR) NEGATIVE (Negative) Discharge Plan Discharge Clinical Impression: Chest pain, Malaise Patient Disposition: Home, Self-Care Instructions: Noncardiac Chest Pain (ED), Fatigue (ED) Additional Instructions: All of your screening labs including 2 cardiac enzymes were normal. You were tested for influenza, COVID and RSV, the viral panel was negative. There were no concerning changes on the EKG in the chest x-ray is clear. Your chest discomfort is not associated with your heart. Continue to follow up with your healthcare providers. Prescriptions: No Action (DME) pen needle, diabetic [BD Corin 2nd Gen Pen Needle] 32 gauge x 5/32 needle See Rx Instructions .MEDSUPPLY Qty: 100 4RF Rx Instructions: once a day cholecalciferol (vitamin D3) 50 mcg (2,000 unit) capsule 50 mcg PO DAILY Qty: 90 3RF fluoxetine 10 mg capsule 10 mg PO DAILY Qty: 90 1RF metformin 1,000 mg tablet 1,000 mg PO BID Qty: 180 1RF (DME) FreeStyle Lite Strips Strip See Rx Instructions .ROUTE .MEDSUPPLY Qty: 100 5RF Rx Instructions: 3 times a day (DME) blood-glucose meter [FreeStyle Lite Meter] Kit See Rx Instructions .Route Qty: 1 0RF Rx Instructions: As directed TID (DME) blood pessure cuff See Rx Instructions .Route .MEDSUPPLY Qty: 1 0RF Rx Instructions: As directed Brilinta 90 mg tablet 90 mg PO BID Qty: 60 11RF ferrous sulfate 325 mg (65 mg iron) Tablet 325 mg PO BID Qty: 60 6RF losartan 25 mg tablet 25 mg PO DAILY Qty: 90 0RF (DME) pen needle, diabetic [BD Ultra-Fine Corin Pen Needle] 32 gauge x 5/32 needle See Rx Instructions .Route Qty: 100 1RF Rx Instructions: As directed insulin glargine [Lantus Solostar U-100 Insulin] 100 unit/mL (3 mL) insulin pen 15 unit subcut DAILY 30 Days Qty: 15 3RF dapagliflozin propanediol [Farxiga] 10 mg tablet 10 mg PO DAILY Qty: 90 0RF levothyroxine 150 mcg tablet 150 mcg PO DAILY@0600 melatonin 5 mg capsule 5 mg PO BEDTIME (DME) lancets [TRUEplus Lancets] 33 gauge misc See Rx Instructions .ROUTE TID Qty: 100 Rx Instructions: As directed check BS TID (DME) lancets [FreeStyle Lancets] 28 gauge misc See Rx Instructions .ROUTE .MEDSUPPLY Qty: 100 11RF Rx Instructions: As directed three times a day (DME) FreeStyle Control Solution See Rx Instructions .ROUTE .MEDSUPPLY Qty: 1 Rx Instructions: As directed (DME) pen needle, diabetic [BD Ultra-Fine Corin Pen Needle] 32 gauge x 5/32 needle See Rx Instructions .ROUTE .MEDSUPPLY Qty: 100 3RF Rx Instructions: As directed once daily aspirin [Adult Low Dose Aspirin] 81 mg tablet,delayed release (DR/EC) 81 mg PO DAILY metoprolol succinate 50 mg tablet extended release 24 hr 50 mg PO DAILY Qty: 90 3RF Tradjenta 5 mg tablet PO DAILY atorvastatin 80 mg tablet 80 mg PO BEDTIME isosorbide mononitrate 30 mg tablet extended release 24 hr 30 mg PO DAILY alprazolam 0.25 mg tablet 0.25 mg PO DAILY PRN (Reason: anxiety) Qty: 15 0RF Print Language: Japanese
[2025-02-04 15:18] LABS: MANUAL DIFF FLAG NO
[2025-02-04 15:20] LABS: Basophils Percent Auto 0.3 % (0-2); Eosinophils Absolute Auto 0.1 X10*3/uL (0.0-0.4); Hematocrit 35.7 % (37.0-47.0); Hemoglobin 11.8 g/dl (12.0-16.0); Imm Gran Abs Auto 0.06 X10*3/uL (0.00-0.03); Imm Gran Pct Auto 0.4 % (0.0-0.4); Lymphocytes Absolute Auto 1.2 X10*3/uL (1.2-4.9); Lymphocytes Percent Auto 8.8 % (20-40); Mean Corpuscular HGB Conc 33.1 g/dl (31.0-35.0); Mean Corpuscular Hemoglobin 26.4 pg (27.0-33.0); Mean Corpuscular Volume 79.9 fL (80.0-98.0); Mean Platelet Volume 8.9 fL (9.4-12.3); Monocytes Absolute Auto 0.7 X10*3/uL (0.1-1.2); Monocytes Percent Auto 5.4 % (2-11); Neutrophils Absolute Auto 11.5 x10*3/uL (2.0-8.3); Neutrophils Percent Auto 84.1 % (45-73); Platelet Count 487 X10*3/uL (160-400); Red Blood Count 4.47 X10*6/uL (4.20-5.50); Red Cell Distribution Width 14.9 % (11.0-16.0); White Blood Count 13.7 X10*3/uL (4.8-10.8)
[2025-02-04 15:44] LABS: Alanine Aminotransferase 376 U/L (0-31); Anion Gap 17 (12-20); Aspartate Amino Transferase 279 U/L (5-31); Bilirubin Total 0.3 mg/dL (0.0-1.0); Blood Urea Nitrogen 13 mg/dL (9-16); Calcium 10.1 mg/dL (8.4-10.2); Carbon Dioxide 24 mmol/L (22-29); Chloride 104 mmol/L (96-108); Creatinine Clr Calc Pharmacy 77.4; Estimated Glomerular Filt Rate > 60; Glucose Random 191 mg/dL (60-115); Lipase 43 U/L (8-78); Potassium 4.7 mmol/L (3.3-5.1); Sodium 140 mmol/L (135-145); Total Protein 7.3 g/dL (6.5-8.0)
[2025-02-04 15:46] LABS: Troponin-I High Sensitivity 4.4 ng/L (<3.5-17.0)
[2025-02-04 16:01] LABS: Influenza A PCR NEGATIVE (Negative); Influenza B PCR NEGATIVE (Negative); Resp Syncy Virus RNA Qual PCR NEGATIVE (Negative); SARS COV2 PCR INHOUSE NEGATIVE (Negative)
[2025-02-04 16:44] LABS: Alkaline Phosphatase 62 U/L (39-117)
--- OUTSIDE RECORDS SUMMARY | 2025-02-04 18:34 | XMS_ITS | Encounter Summary ---
Author Organization [employer] Address [address] [place] [address] Care Team Providers Care Workforce Services Representative Name Role Phone Unavailable Primary Care Provider Unavailabl e Reason for Visit * Reason Comments Med Refill Encounter Details Date Type Department Care Team (Late st Contact Info) Description 05/21/2024 Refill [facility] [address] [place] [address] Kimberley Cunningham FNP [address] [place] [address] Primary hypertension Social History Tobacco Use Types [...] t he electric, gas, oil or water [employer] threatened to shut off services in your [...]
--- OUTSIDE RECORDS SUMMARY | 2025-02-04 18:34 | XMS_ITS | Encounter Summary ---
Author Organization [employer] Address [address] [place] [address] Care Team Providers Care Waistline Joiner Overlock Name Role Phone Unavailable Primary Care Provider Unavailabl e Reason for Visit * Reason Comments Med Refill Encounter Details Date Type Department Care Team (Late st Contact Info) Description 05/20/[address] [facility] [address] [place] [address] Kimberley Cunningham FNP [address] [place] [address] Primary hypertension Social History Tobacco Use Types [...] t he electric, gas, oil or water [employer] threatened to shut off services in your [...]
--- OUTSIDE RECORDS SUMMARY | 2025-02-04 18:34 | XMS_ITS | Encounter Summary ---
Author Organization [employer] Address [address] [place] [address] Care Team Providers Care Sound Designer Name Role Phone Unavailable Primary Care Provider Unavailabl e Reason for Visit * Reason Comments Med Refill Encounter Details Date Type Department Care Team (Late st Contact Info) Description 01/16/2025 Refill [facility] [address] [place] [address] Kimberley Cuninngham FNP [address] [place] [address] Type 2 diabetes mellitus with hyperglycemia (CMS/HCC) [...]
--- OUTSIDE RECORDS SUMMARY | 2025-02-04 18:34 | XMS_ITS | Clinical Summary ---
Author Organization [employer] Address [address] [facility] [address] [place] [address] Care Team Providers Care Data Specialist Name Role Phone Unavailable Primary Care [...] e 2 diabetes mellitus treated with insulin ([facility]) INJECT 8 UNITS SUBCUTANEOUSLY ONCE DAILY IN THE EVENING 15 mL 3 11/01/20 23 Active linaGLIPtin (Tradjenta) 5 MG tabletIndications: Type 2 diabetes mellitus without complication, with long-term current use of insulin ([facility]) TAKE 1 TABLET BY MOUTH [...] 10 MGIndications:Type 2 diabetes mellitus with hyperglycemia ([facility]) TAKE 1 TABLET BY MOUTH [...] with long-term current use of insulin ([facility]) TAKE 1 TABLET BY MOUTH TWICE DAILY AT NOON AND IN THE EVENING 180 tablet 1 03/20/20 24 Active lisinopril 20 MG tabletIndications: Primary hypertension TAKE 1 TABLET BY MOUTH AT BEDTIME 90 tablet 2 05/22/20 24 Active FREESTYLE LITE test stripIndications:T ype 2 diabetes mellitus with hyperglycemia ([facility]/HCC) TEST BLOOD SUGAR 3 TIMES A [...] -Pt in the process of re-establishing with [facility] -Per last available [...] Type Department Care Team Description 01/16/2025 Refill [facility] [address] [place] [address] Kimberley Cunningham FNP Type 2 diabetes mellitus with hyperglycemia ([facility]) 01/12/2025 Refill [facility] [address] [place] [address] Kimberley Cunningham FNP Type 2 diabetes mellitus with hyperglycemia ([facility]) 11/13/2024 Refill [facility] [address] [place] [address] Kimberley Cunningham FNP Type 2 diabetes mellitus without complication, with long-term current use of insulin ([facility]) from Last 3 Months Immunizations [...] with long-term current use of insulin ([facility]) MAMMOGRAM GENERIC Routine 10/05/2022 10: [...] result details Legacy Procedure: Mammography Report 1 Kimbelrey Cunningham DIRECTOR DIGITAL STRATEGY IMG BI PROCEDURES Final Result * LIPID [...] ?? Jesús ROBERTS et al. KORTNEY. 2013;310(19): 4117-0468 ?? (http://[employer]/faq/CTU488) Non-HDL Cholesterol 87 <130 mg/dL (calc) [facility] Comment: For patients with diabetes plus 1 major ASCVD risk ?? factor, treating to a non-HDL-C goal of <100 mg/dL ?? (LDL-C of <70 mg/dL) is considered a therapeutic ?? option. Triglycerides 91 <150 mg/dL [facility] 10/04/2022 8:50 AM EST Kimberley Cunningham DIRECTOR DIGITAL STRATEGY LAB BLOOD ORDERABLES Final Res ult [facility] * MICROALBUMIN, RANDOM (07/13/2021 10:40 AM EDT) Creatinine Urine 30.03 mg/dL [facility] Microalbum/Creati nine Ratio Ur TNP ug/mg cr [facility] Comment: Unable to calculate albumin/creatinine ratio due to low microalbumin or creatinine result. Microalbumin Urine <5.0 mg/L [facility] 07/13/2021 10:4 0 AM EDT Historical Provider HISTORICAL/NON ORDERABLE LABS Final Result [facility] [address] * Hm Pap Smear (03/14/2019) Pap [...] Most Recently Relevant to Health Maintenance Insurance [facility] MEDICA[facility] STAND ADULT
--- OUTSIDE RECORDS SUMMARY | 2025-02-04 18:35 | XMS_ITS | Encounter Summary ---
Author Organization [employer] Address [address] [place] [address] Care Team Providers Care Integration Specialist Name Role Phone Kimberley Cunningham ROAD CONDUCTOR Primary Care Provider [phone] Encounter Details Date Type Department Care Team (Late st Contact Info) Description 10/12/2023 Abstract [facility] [address] [place], [place] [phone] Sandra Villareal Social History Tobacco Use Types [...] documented as of this encounter Care Teams Integration Specialist Relationship Specialty Start Date End Date Kimberley Cunningham FNP [address] [place] [phone] PCP - General Family Medicine 07/23/22 03/20/24 documented as of this encounter
--- OUTSIDE RECORDS SUMMARY | 2025-02-04 18:35 | XMS_ITS | Encounter Summary ---
Author Organization [employer] Address [address] [place] [address] Care Team Providers Care Cadence Specialists Name Role Phone Unavailable Primary Care Provider Unavailabl e Reason for Visit * Reason Comments Med Refill Encounter Details Date Type Department Care Team ([facility] st Contact Info) Description 09/10/2024 Refill [facility] [address] [place], [place] [phone] Kimberley Cunningham, EILEEN [address] [place], [place] [phone] Depressive disorder Social History Tobacco Use Types [...] t he electric, gas, oil or water [employer] threatened to shut off services in your [...]
--- OUTSIDE RECORDS SUMMARY | 2025-02-04 18:35 | XMS_ITS | Encounter Summary ---
Author Organization [employer] Address [address] [facility] [address] [place] [address] Care Team Providers Care Long Winder Tender Name Role Phone Kimberley Cunningham BOWLING ALLEY MECHANIC Primary Care Provider [phone] Reason for Visit * Reason Comments Med Refill Encounter Details Date Type Department Care Team ([facility] st Contact Info) Description 09/08/2023 Refill [facility] [address] [place], [place] [phone] Jojo Washburn MD [address] [place], [place] [phone] Depressive disorder Social History Tobacco Use Types [...] documented as of this encounter Care Teams Long Winder Tender Relationship Specialty Start Date End Date Kimberley Cunningham FNP [address] [place] [phone] PCP - General Family Medicine 07/23/22 03/20/24 documented as of this encounter
--- OUTSIDE RECORDS SUMMARY | 2025-02-04 18:35 | XMS_ITS | Encounter Summary ---
Author Organization [employer] [facility] Address [address] [facility] [address]t [place] [address] Care Team Providers Care Onboarding Specialist Name Role Phone Kimberley Cunningham Primary Care Provider [phone] Encounter Details Date Type Department Care Team (Latest Contact Info) Description 01/07/2020 Abstract [facility] CONVERSIONS Dental, Provider, DDS Social History [...] on filedocumented in this encounter Care Teams Onboarding Specialist Relationship Specialty Start Date End Date Kimberley Cunningham FNP [address] [place] [address] PCP - General Family Medicine 07/23/22 03/20/24 documented as of this encounter
--- OUTSIDE RECORDS SUMMARY | 2025-02-04 18:35 | XMS_ITS | Encounter Summary ---
Author Organization [employer] Address [address] [place] [address] Care Team Providers Care Broomcorn Grader Name Role Phone Unavailable Primary Care Provider Unavailabl e Reason for Visit * Reason Comments Med Refill Encounter Details Date Type Department Care Team (Late st Contact Info) Description 08/12/2024 Refill [facility] [address] [place] [address] Kimberley Cunningham FNP [address] [place] [address] Vitamin D insufficiency Social History Tobacco Use [...] the past 12 months, has t he [employer], gas, oil or water company threatened to [...]
--- OUTSIDE RECORDS SUMMARY | 2025-02-04 18:35 | XMS_ITS | Encounter Summary ---
Author Organization [employer] Address [address] [place] [address] Care Team Providers Care Gritting Machine Operator Name Role Phone Unavailable Primary Care Provider Unavailabl e Reason for Visit * Reason Comments Med Refill Encounter Details Date Type Department Care Team ([facility] st Contact Info) Description 11/13/2024 Refill [facility] [address] [place] [address] Kimberley Cunningham FNP [address] [place] [address] Type 2 diabetes mellitus without complication, with long-term current use of insulin ([facility]) Social History Tobacco Use Types Packs/Day [...] complication, with long-term current use of insulin ([facility]) documented in this encounter Additional Health Concerns Assessment Noted Time PHQ-9 Depression Total Score: 2 01/09/20 23 9:19 AM EST documented as of this encounter
--- OUTSIDE RECORDS SUMMARY | 2025-02-04 18:35 | XMS_ITS | Encounter Summary ---
Author Organization [employer] Address [address] [facility] 7t [place] [address] Care Team Providers Care District Customs Director Name Role Phone Kimberley Cunningham Primary Care Provider [phone] Reason for Visit * Reason Comments Med Refill Encounter Details Date Type Department Care Team ([facility] st Contact Info) Description 07/26/2023 Refill [facility] MEDICINE [address] [place] [address] Kimberley Cunningham FNP [address] [place] [address] Depressive disorder Social History Tobacco Use Types [...] documented as of this encounter Care Teams District Customs Director Relationship Specialty Start Date End Date Kimberley Cunningham FNP [address] [place] [address] PCP - General Family Medicine 07/23/22 03/20/24 documented as of this encounter
--- OUTSIDE RECORDS SUMMARY | 2025-02-04 18:35 | XMS_ITS | Encounter Summary ---
Author Organization [employer] [facility] Address [address] [facility] 7[address] [place] [address] Care Team Providers Care Management Nurse Rn Name Role Phone Kimberley Cunningham Primary Care Provider [phone] Encounter Details Date Type Department Care Team (Latest Contact Info) Description 01/20/2021 Abstract [facility] CONVERSIONS Dental, Provider, DDS Social History [...] on filedocumented in this encounter Care Teams Management Nurse Rn Relationship Specialty Start Date End Date Kimberley Cunningham FNP [address] [place] [address] PCP - General Family Medicine 07/23/22 03/20/24 documented as of this encounter
--- OUTSIDE RECORDS SUMMARY | 2025-02-04 18:35 | XMS_ITS | Encounter Summary ---
Author Organization [employer] Address [address] 7[address] [place] [address] Care Team Providers Care School Bus Operator Name Role Phone Unavailable Primary Care Provider Unavailabl e Reason for Visit * Reason Comments Med Refill Encounter Details Date Type Department Care Team (Late st Contact Info) Description 06/17/2024 Refill [facility] MEDICINE [address] [place] [address] Kimberley Cunningham FNP [address] [place] [address] Other hyperlipidemia; Type 2 diabetes mellitus with [...]
--- OUTSIDE RECORDS SUMMARY | 2025-02-04 18:35 | XMS_ITS | Encounter Summary ---
Author Organization [employer] Address [address] [facility] 7t [place] [address] Care Team Providers Care Care Trainer Name Role Phone Unavailable Primary Care Provider Unavailabl e Reason for Visit * Reason Comments Med Refill Encounter Details Date Type Department Care Team ([facility] st Contact Info) Description 10/13/2024 Refill [facility] MED & PEDS [address] [place], [place] [phone] Kimberley Cunningham, EILEEN [address] [place] [address] Type 2 diabetes mellitus without complication, with long-term current use of insulin ([facility]) Social History Tobacco Use Types Packs/Day Years [...] complication, with long-term current use of insulin ([facility]) documented in this encounter Additional Health Concerns Assessment Noted Time PHQ-9 Depression Total Score: 2 01/09/20 23 9:19 AM EST documented as of this encounter
--- OUTSIDE RECORDS SUMMARY | 2025-02-04 18:35 | XMS_ITS | Encounter Summary ---
Author Organization [employer] Address [address] [facility] [address] [place] [address] Care Team Providers Care Hospital Coordinator Name Role Phone Unavailable Primary Care Provider Unavailabl e Reason for Visit * Reason Comments Med Refill Encounter Details Date Type Department Care Team ([facility] st Contact Info) Description 08/15/2024 Refill [facility] MED & PEDS [address] [place], [place] [phone] Kimberley Cunningham, POULTRY RAISER [address] [place] [address] Hypothyroidism, unspecified type Social History Tobacco Use [...]
--- OUTSIDE RECORDS SUMMARY | 2025-02-04 18:35 | XMS_ITS | Encounter Summary ---
Author Organization [employer] Address [address] 7[address] [place] [address] Care Team Providers Care Slip Cover Cutter Name Role Phone Unavailable Primary Care Provider Unavailabl e Reason for Visit * Reason Comments Med Refill Encounter Details Date Type Department Care Team (Late st Contact Info) Description 01/12/2025 Refill [facility] MEDICINE [address] [place] [address] Kimberley Cunningham FNP [address] [place] [address] Type 2 diabetes mellitus with hyperglycemia (CMS/HCC) [...]
[2025-02-04 20:15] VITALS: BP 177/86; PULSE 77; RESP 15; TEMP 36.9; O2SAT 98
[2025-02-04 20:42] LABS: Troponin-I High Sensitivity 6.1 ng/L (<3.5-17.0)
--- NOTE | 2025-02-04 20:57 | PC.NURSE ---
security system engineer at bedside. pt a&ox4, respirations even and unlabored. pt reporting x4 weeks of feeling unwell, pt reports the last 3 days she has been feeling increasingly weak, with intermittent chest discomfort and shortness of breath. pt reports she has been trying to walk and her legs will not move. pt denies n/v/d. 20G placed in left ac, labs obtained. vss.
[2025-02-04 20:58] VITALS: PULSE 75
[2025-02-04 22:13] VITALS: BP 151/79; PULSE 68; RESP 13; TEMP 36.8; O2SAT 97
== END 2025-02-04 22:14 | disposition home or self-care (01) ==
PROVIDERS: Physician Assistant; Emergency Provider Emergency Medicine Emergency Medical Services; PCP Internal Medicine
DX: R07.89 Other chest pain (principal); I25.10 Atherosclerotic heart disease of native coronary artery without angina pectoris; R53.81 Other malaise; Z03.818 Encounter for observation for suspected exposure to other biological agents ruled out; Z79.899 Other long term (current) drug therapy
CPT/HCPCS: 0241U; 36415; 71045; 80053; 83690; 84484; 85025; 93005; 99283; 99285

== ENCOUNTER → 2025-02-04 14:06 | Outpatient (BNV) | payer OTHER, SELFPAY | PROVIDERS: PCP Internal Medicine; Visit Provider Internal Medicine | DX: R07.9 Chest pain, unspecified (principal) | CPT/HCPCS: 93010 ==

== ENCOUNTER → 2025-02-04 20:19 | Outpatient (BNV) | payer OTHER, SELFPAY | PROVIDERS: Emergency Provider Emergency Medicine Emergency Medical Services; PCP Internal Medicine; Visit Provider Nuclear Medicine | DX: R07.9 Chest pain, unspecified (principal) | CPT/HCPCS: 71045 ==

== ENCOUNTER 2025-02-17 09:30 | Outpatient (AMB) | payer OTHER, SELFPAY ==
[2025-02-17 09:32] VITALS: BP 142/76; PULSE 78; O2SAT 98; BMI 22.1
--- NOTE | 2025-02-17 09:32 | A.OFFPC_ITS ---
Vital Signs 02/17/25 09:32 Height 5 ft 4 in Weight 129 lb BMI 22.1 BP 142/76 H Blood Pressure Location Lt brachial Position Sitting Pulse 78 Pulse Source Pulse Oximeter Pulse Oximetry (%) 98 Oxygen Delivery Method Room Air Intake Visit Reasons: 3 Month F/U Allergies penicillin V Allergy (Unknown, Verified 02/17/25 09:34) hives Penicillins [PENICILLINS] Allergy (Unknown, Verified 02/17/25 09:34) RASH,DIZZINESS Medication List - Last Reconciled 02/17/25 by Conor Garcia MD alprazolam 0.25 mg PO DAILY PRN aspirin (Adult Low Dose Aspirin) 81 mg PO DAILY blood glucose control high,low (FreeStyle Control solution) As directed [blood pessure cuff As directed] blood sugar diagnostic (FreeStyle Lite Strips) 3 times a day blood-glucose meter (FreeStyle Lite Meter kit) As directed TID cholecalciferol (vitamin D3) 50 mcg PO DAILY dapagliflozin propanediol (Farxiga) 10 mg PO DAILY ferrous sulfate 325 mg PO BID fluoxetine 10 mg PO DAILY insulin glargine (Lantus Solostar U-100 Insulin) 15 units (0.15 mL) subcut DAILY 30 days isosorbide mononitrate ER 30 mg PO DAILY lancets (TRUEplus Lancets) As directed check BS TID lancets (FreeStyle Lancets) As directed three times a day levothyroxine 150 mcg PO DAILY@0600 losartan 25 mg PO DAILY melatonin 5 mg PO BEDTIME metformin 1,000 mg PO BID metoprolol succinate ER 50 mg PO DAILY pen needle, diabetic (BD Corin 2nd Gen Pen Needle) once a day pen needle, diabetic (BD Ultra-Fine Corin Pen Needle) As directed once daily pen needle, diabetic (BD Ultra-Fine Corin Pen Needle) As directed prednisone 60 mg PO DAILY ticagrelor (Brilinta) 90 mg PO BID Tobacco use date assessed: 01/26/25 Dental Screening Dental Screen Date: 12/02/24 HPI 3 Month F/U HPI Details Muscle biopsy done last sunday and results pending [facility] Medical History Dermatomyositis Elevated CK CAD (coronary artery disease) STEMI (ST elevation myocardial infarction) GERD (gastroesophageal reflux disease) Physical exam, pre-employment Sebaceous cyst RUQ pain Cervical polyp Muscle strain of right scapular region H. pylori infection Overweight (BMI 25.0-29.9) Hypertension Hypothyroidism alf (current) use of insulin Diabetes type 2, uncontrolled Surgical History History of coronary artery stent placement Hx of tubal ligation Hx of cholecystectomy Family History Unknown No problems noted. 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 1. Little interest or pleasure in doing things: not at all 2. Feeling down, depressed, or hopeless: not at all 3. Trouble falling or staying asleep, or sleeping too much: not at all 4. Feeling tired or having little energy: not at all 5. Poor appetite or overeating: not at all 6. Feeling bad about yourself - or that you are a failure or have let yourself or your family down: not at all 7. Trouble concentrating on things, such as reading the newspaper or watching television: not at all 8. Moving or speaking so slowly that other people could have noticed. Or the opposite - being so fidgety or restless that you have been moving around a lot more than usual: not at all 9. Thoughts that you would be better off or of hurting yourself in some way: not at all Total score: 0 Depression Screening Interpretation: Negative Depression Screening Done: Yes 92067 - PHQ-9 Billing: Yes Source: Developed by Drs. Deepak Woodard, Juan R Barth and colleagues, with an educational kimi from [employer]. Thrive Questionnaire Date Thrive assessed: 12/04/24 AUDIT C Alcohol Use Questionnaire (AUDIT-C) 1. How often do you have a drink containing alcohol?: Never 3. How often do you have six or more drinks on one occasion?: Never Total Score: 0 SHAWN-7 AMB Questionnaire SHAWN-7 Date SHAWN - 7 assessed: 12/02/24 Source: Developed by Drs. Deepak Woodard, Juan R Barth and colleagues, with an educational kimi from [employer]. Physical exam (Primary Care) Vital Signs: Last Vital Signs Pulse 78 02/17/25 09:32 BP 142/76 H 02/17/25 09:32 Pulse Ox 98 02/17/25 09:32 Oxygen Delivery Method Room Air 02/17/25 09:32 BMI result Body Mass Index 22.1 Tobacco/Smoking Status: Tobacco use Status Tobacco use date assessed 01/26/25 02/17/25 09:34 Patient Tobacco Use Status Never used Tobacco 02/17/25 09:34 Tobacco use type Cigarette 02/17/25 09:34 e-Cigarette/Vaping Use Never Used 02/17/25 09:34 PHQ-9: PHQ-9 Score PHQ-9: Total score 0 02/17/25 10:04 Depression Screening Interpretation: Negative Thrive Assessment: Date of Thrive Assessment Date Thrive assessed 12/04/24 02/17/25 09:34 Const General: alert; No acute distress Eyes Conjunctivae: conjunctivae normal Resp Auscultation: clear to auscultation bilaterally Cardio Rate: regular rate Rhythm: regular rhythm GI Inspection: Yes normal to inspection Extrem General: Yes normal to inspection and No edema Results AMB Hemoglobin A1c AMB Hemoglobin A1c 7.9 % Last Edit by Jojo Alvarado CMA on 02/17/25 10 :05 Results Reviewed Results Reviewed: Laboratory Last Values Hgb A1c (Clinic) 7.9 % (4.0-6.0) H 02/17/25 09:35 Coding Level of Care Code Est Pt Level 4 (45149) Complex EM visit Add On G2211 Diagnoses Coronary artery disease without angina pectoris, unspecified vessel or lesion type, unspecified whether [place] or transplanted heart I25.10 Associated angina: without angina Coronary Disease-Associated Artery/Lesion type: unspecified vessel or lesion type [place] vs. transplanted heart: unspecified whether [place] or transplanted heart Non-traumatic rhabdomyolysis M62.82 Rhabdomyolysis type: non-traumatic Gastroesophageal reflux disease without esophagitis K21.9 Esophagitis presence: without esophagitis Type 2 diabetes mellitus with hyperglycemia, with long-term current use of insulin E11.65; Z79.4 Diabetes mellitus snf insulin use: with snf use Hypercholesterolemia E78.00 Acquired hypothyroidism E03.9 Hypothyroidism type: acquired Essential hypertension I10 Hypertension type: essential hypertension Additional Codes PHQ-9 - 17060 - PHQ-9 Billing: Yes ([id number]) Assessment & Plan Assessment & Plan (1) CAD (coronary artery disease): Comment: 10/2024, December 2024 Code(s): I25.10 - Atherosclerotic heart disease of [place] coronary artery without angina pectoris Category: Medical Qualifiers: Associated angina: without angina Coronary Disease-Associated Artery/Lesion type: unspecified vessel or lesion type [place] vs. transplanted heart: unspecified whether [place] or transplanted heart Qualified Code(s): I25.10 - Atherosclerotic heart disease of [place] coronary artery without angina pectoris Plan: Patient has had drug-eluting stent left side in 2023 right side in 2024 Brilinta has been started from December and will end in 1 year (2) Rhabdomyolysis: Code(s): M62.82 - Rhabdomyolysis Category: Medical Qualifiers: Rhabdomyolysis type: non-traumatic Qualified Code(s): M62.82 - Rhabdomyolysis Plan: Patient has been followed up and has been requested have a muscle biopsy but the patient declined for the moment. Meanwhile follows up with Rheumatology (3) GERD (gastroesophageal reflux disease): Code(s): K21.9 - Gastro-esophageal reflux disease without esophagitis Category: Medical Qualifiers: Esophagitis presence: without esophagitis Qualified Code(s): K21.9 - Gastro-esophageal reflux disease without esophagitis Plan: Avoid the foods that causes that usually spicy foods, tomato products, juices, coffee, soda and foods that your sensitive to. After eating do not lie down, allow 3-4 hours before in lie down. And keep the head of bed above 30 degrees to avoid the acid from going up. (4) Type 2 diabetes mellitus with hyperglycemia: Comment: [facility] Code(s): E11.65 - Type 2 diabetes mellitus with hyperglycemia Category: Medical Qualifiers: Diabetes mellitus long term care social worker insulin use: with long term care social worker use Qualified Code(s): E11.65 - Type 2 diabetes mellitus with hyperglycemia; Z79.4 - alf (current) use of insulin Plan: Decrease the amount of carbohydrate intake, pasta, bread, rice and potatoes are all sugar and that is aside from all the sweet stuff, remember that fruits are good but they are Sweet also. Hemoglobin A1c goal of less than 6.5. Patient is on Farxiga 10 mg once a day Lantus at 15 units once a day Tradjenta 5 mg once a day metformin a 1000 mg twice a day (5) Hypercholesterolemia: Code(s): E78.00 - Pure hypercholesterolemia, unspecified Category: Medical Plan: Avoid fried foods, chicken skin, eggs, butter margarine, pastries and meat. Be it pork or beef they have a lot of cholesterol LDL needs to be less than 70 and triglyceride of less than 150 patient has been placed back on Lipitor due to 2nd MO (6) Hypothyroidism: Code(s): E03.9 - Hypothyroidism, unspecified Category: Medical Qualifiers: Hypothyroidism type: acquired Qualified Code(s): E03.9 - Hypothyroidism, unspecified Plan: Continue with thyroid medication and will monitor the blood work (7) Hypertension: Code(s): I10 - Essential (primary) hypertension Category: Medical Qualifiers: Hypertension type: essential hypertension Qualified Code(s): I10 - Essential (primary) hypertension Plan: Continue with blood pressure medication. Decrease salt intake and exercise on isosorbide mononitrate losartan 25 mg once a day metoprolol 50 mg once a day Plan History of Present Illness The patient is a 64-year-old female presenting for follow-up of her complex chronic conditions, particularly her recent episodes of coronary and muscle- related issues. She has a notable history of hypothyroidism, essential hypertension, type 2 diabetes mellitus, hypercholesterolemia, and coronary artery disease. Recently, she was hospitalized for a non-ST elevation myocardial infarction (NSTEMI), leading to procedures including stenting and subsequent treatment with antiplatelet therapy. Further, she has an anterior ST-elevation myocardial infarction (STEMI) documented in October 2024, treated with left anterior descending artery stenting. 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 An associated rhabdomyolysis episode has contributed to challenges in managing lipid levels, given her previously elevated liver function tests and m uscle symptoms. Recent lab assessments showed mild anemia and cell count variations, possibly linked to her chronic conditions or therapies. She continues on various medications for her diabetes and hypertension, including Farxiga, Lantus, Metformin, and multiple antihypertensives. She reports adjustment issues with these, particularly around muscle symptoms and managing gastrointestinal discomfort tied to her GERD. Today's visit aims to re- evaluate and optimize her treatment and management plan. Health Maintenance - Colonoscopy last conducted in 2017; follow-up needed. - Blood glucose management with a focus on maintaining hemoglobin A1c goals of less than 6.5. - Discussed dietary modifications including reducing fried foods and using healthy oils like avocado and olive oil. - Patient advised to keep her blood pressure managed with current antihypertensive regimen. - Encourage fasting blood work for comprehensive cholesterol panel and glucose level monitoring. - Rheumatological assessment with suggested biopsy for dermatomyositis pending. - Emphasized lifestyle adjustments involving exercise and meal planning. Social History - Diet includes salads, limited fried foods, and use of avocado or olive oil for cooking. - Avoidance of fast foods like Medel[employer] reported. - Attempts to maintain a healthy diet and incorporate air-fried options. - Drinks supplements like Glucerna for nutritional support, mindful of diabetes management. Review of Systems - Cardiovascular: Reports previous chest pain resulting in NSTEMI and STEMI interventions. - Musculoskeletal: Reports muscle weakness, particularly in upper extremities. - Digestive: Reports GERD and recent episodes of epigastric pain. - Metabolic: Reports high blood sugar, with last A1c at 7.9. - Renal: Reports renal calculi detected but asymptomatic. - Hematological: Reports mild anemia and blood cell count variations in recent labs. Physical Exam Results - Labs: Mild anemia, leukopenia, and thrombocytosis noted in recent blood work; liver function elevated. - Imaging: Echocardiogram showed normal left ventricular function with an ejection fraction of 65-70%. - Tests and diagnostics: NSTEMI confirmed via cardiac catheterization; previous STEMI treated with stenting. Plan Management will involve continuing Brilinta for stent maintenance following her NSTEMI and reviewing her current medication regimen to manage her chronic conditions effectively, including hypothyroidism, hypertension, and diabetes. We emphasize careful dietary management and lifestyle changes for her metabolic syndrome components. Dermatomyositis treatment necessitates ongoing rheumatological evaluation, anticipating biopsy once consented. Regular monitoring will include blood glucose, lipid profiles, and comprehensive metabolic panels to adjust treatment as needed. Patient was informed and verbally consented to the use of an ambient scribe for clinic note documentation during this visit. Discussion Notes During the visit, we reviewed the patient's multiple diagnoses, focusing on recent cardiac events and her management strategy. We discussed the benefit of maintaining Brilinta therapy to prevent stent thrombosis and emphasized ongoing lipid and glucose monitoring. The necessity of a multifaceted approach, incorporating dietary modifications and possible future rheumatological interventions, was conveyed. We discussed the consequences of statin therapy and its relationship to her muscle symptoms, underscoring the importance of reporting any exacerbations. Follow-up on her thyroid function and blood pressure regulation is planned, with attention to medication adherence. The importance of upcoming appointments, particularly with rheumatology, was stressed. Patient Instructions - Continue Brilinta as prescribed; monitor for any side effects. - Maintain current dietary modifications, including using healthy oils and avoiding fried foods. - Monitor blood glucose levels consistently; aim for an A1c below 6.5. - Follow up with the computer systems architect as scheduled; consider biopsy for dermatomyositis. - Conduct blood work as advised, ensuring fasting prior to testing. - Report any new or worsening symptoms, particularly related to her muscle function or chest pain. - Engage in moderate exercise and prioritize hydration. - Schedule follow-up appointments to review management plans and ongoing health needs. Orders: Orders AMB Hemoglobin A1c Today Z13.9 - Encounter for screening, unspecified Medications: New melatonin 10 mg PO BEDTIME PRN 30 caps 7RF sleep isosorbide mononitrate ER 30 mg PO DAILY 90 tabs 1RF aspirin (Adult Low Dose Aspirin) 81 mg PO DAILY 90 tabs 3RF
== END 2025-02-17 10:21 | disposition home or self-care (01) ==
LOC: HO.HMCH 09:31
PROVIDERS: PCP Internal Medicine; Visit Provider Internal Medicine
DX: I25.10 Atherosclerotic heart disease of native coronary artery without angina pectoris (principal); E11.65 Type 2 diabetes mellitus with hyperglycemia; Z79.4 Long term (current) use of insulin; M62.82 Rhabdomyolysis; K21.9 Gastro-esophageal reflux disease without esophagitis; E78.00 Pure hypercholesterolemia, unspecified; E03.9 Hypothyroidism, unspecified; I10 Essential (primary) hypertension

== ENCOUNTER → 2025-02-17 09:30 | Outpatient (BNVA) | payer OTHER, SELFPAY | PROVIDERS: PCP Internal Medicine; Visit Provider Internal Medicine | DX: I25.10 Atherosclerotic heart disease of native coronary artery without angina pectoris (principal); M62.82 Rhabdomyolysis; K21.9 Gastro-esophageal reflux disease without esophagitis; E11.65 Type 2 diabetes mellitus with hyperglycemia; Z79.4 Long term (current) use of insulin; E78.00 Pure hypercholesterolemia, unspecified; E03.9 Hypothyroidism, unspecified; I10 Essential (primary) hypertension | CPT/HCPCS: 83036; 96127; 99212 ==

== ENCOUNTER 2025-02-18 10:14 | Outpatient (AMB) | payer OTHER, SELFPAY ==
[2025-02-18 10:30] VITALS: BP 138/72; PULSE 80; O2SAT 99; BMI 21.8
--- NOTE | 2025-02-18 10:30 | A.OFFVIS_ITS ---
Vital Signs 02/18/25 10:30 Height 5 ft 4 in Weight 126 lb 12.253 oz BMI 21.8 BP 138/72 Blood Pressure Location Rt brachial Position Sitting Pulse 80 Pulse Source Pulse Oximeter Pulse Oximetry (%) 99 Oxygen Delivery Method Room Air Intake Visit Reasons: 1 month Intake Note: Patient was last seen by Dinora Sheth on 01/07/25. Presents today for follow up on dermatomyositis. Cloth Bleaching Supervisor Required: Yes Cloth Bleaching Supervisor Name: Jose Juan [id number] Accompanied by: Spouse Allergies penicillin V Allergy (Unknown, Verified 02/18/25 10:39) hives Penicillins [PENICILLINS] Allergy (Unknown, Verified 02/17/25 09:34) RASH,DIZZINESS Medication List - Last Reconciled 02/18/25 by Dinora Sheth MD alprazolam 0.25 mg PO DAILY PRN aspirin (Adult Low Dose Aspirin) 81 mg PO DAILY blood glucose control high,low (FreeStyle Control solution) As directed [blood pessure cuff As directed] blood sugar diagnostic (FreeStyle Lite Strips) 3 times a day blood-glucose meter (FreeStyle Lite Meter kit) As directed TID cholecalciferol (vitamin D3) 50 mcg PO DAILY dapagliflozin propanediol (Farxiga) 10 mg PO DAILY ferrous sulfate 325 mg PO BID fluoxetine 10 mg PO DAILY insulin glargine (Lantus Solostar U-100 Insulin) 15 units (0.15 mL) subcut DAILY 30 days isosorbide mononitrate ER 30 mg PO DAILY lancets (TRUEplus Lancets) As directed check BS TID lancets (FreeStyle Lancets) As directed three times a day levothyroxine 150 mcg PO DAILY@0600 losartan 25 mg PO DAILY melatonin 10 mg PO BEDTIME PRN metformin 1,000 mg PO BID metoprolol succinate ER 50 mg PO DAILY pen needle, diabetic (BD Corin 2nd Gen Pen Needle) once a day pen needle, diabetic (BD Ultra-Fine Corin Pen Needle) As directed once daily pen needle, diabetic (BD Ultra-Fine Corin Pen Needle) As directed prednisone 60 mg PO DAILY ticagrelor (Brilinta) 90 mg PO BID HPI Comments Details: Patient is a 63-year-old female with hypothyroidism, hypertension complicated by CAD status post stenting (10/2024 ) and 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 here today for follow up of polymyositis/dermatomyositis Interval History: Patient last seen 01/07/2025 with me. At that time she was being evaluated for her likely polymyositis/dermatomyositis. She followed up with surgery 11/07/2025 and decided not to pursue a biopsy due to concerns of the cardiac risks. Subsequent to this she was hospitalized with extreme muscle weakness and found to have a CK greater than 14,000. She was able to get the muscle biopsy in hospital at [facility] and was started on Prednisone at my instruction. 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 During the hospitalization she was noted to have elevated LFTs and was asked to follow up about this as an outpatient. She followed up with her primary care 12/02/2024. ?Labs were sent and it was noted that she had elevated CK greater than 8000 which on repeat increase to 10,000. Transaminases were elevated as well.? She was admitted to [facility] 12/03/24 with rhabdomyolysis and started on IV fluids.? Despite IV fluids her CK plateaued at around 5000.? She was previously on a statin but this was stopped prior to her 10/2024 hospitalization but this was stopped. Has been having muscle pain/bone pain for about 1 year. Feels that she is very weak and not able to walk or raise her arm above her head. No rashes Fingers do change color in the cold Current Rheumatology Medication(s): Prednisone 60mg PO [facility] Medical History Dermatomyositis Elevated CK CAD (coronary artery disease) STEMI (ST elevation myocardial infarction) GERD (gastroesophageal reflux disease) Physical exam, pre-employment Sebaceous cyst RUQ pain Cervical polyp Muscle strain of right scapular region H. pylori infection Overweight (BMI 25.0-29.9) Hypertension Hypothyroidism FPC (current) use of insulin Diabetes type 2, uncontrolled Surgical History History of coronary artery stent placement Hx of tubal ligation Hx of cholecystectomy Family History Unknown No problems noted. 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 Cognitive needs: No Hearing needs: No Vision needs: No Female Reproductive History Menstrual Age of Menarche: 12 Review of Systems Const Details: Review of Systems Constitutional: Denies fever, chills, weight loss ENT: Denies vision changes, eye pain or eye redness, dental caries, dry mouth GI: Denies nausea, vomiting, diarrhea, abdominal pain, change in BM Pulm: Denies SOB, TORRES, hemoptysis, wheezing Cards: Denies chest pain, palpitations Skin: Denies Raynaud's, rash, nail changes, photosensitivity, AUTOMOBILE BUMPER STRAIGHTENER: Denies headaches, weakness, paresthesias, recurrent falls MSK: as per HPI All other systems reviewed and are unremarkable except noted above Physical Exam Vital Signs: Last Vital Signs Pulse 80 02/18/25 10:30 BP 138/72 02/18/25 10:30 Pulse Ox 99 02/18/25 10:30 Oxygen Delivery Method Room Air 02/18/25 10:30 BMI result Body Mass Index 21.8 Vital signs reviewed Physical Examination CONSTITUITIONAL Patient alert and cooperative. Well appearing and in no apparent painful distress HEENT Conjunctiva and sclera clear. ?Pupils equal round and reactive to light. ?No lymphadenopathy. ? CHEST/RESPIRATORY SYSTEM Normal respiratory effort and able to speak in complete sentences. ?Clear to auscultation bilaterally. ?No crackles, rales, rhonchi, wheezes heard. CARDIAC SYSTEM Regular rate and rhythm. ?S1 and S2 heard no murmurs. ?Radial pulses intact bilaterally MSK Hands: ?Good data collection associate strength bilaterally. No deformities noted. ?No synovitis noted to the MCPs, PIPs or DIPs. ?No tenderness to palpation of these joints. Wrists: ?Full range of motion at the wrists without pain. ?No tenderness to palpation or synovitis noted to the wrists. Elbows: Full range of motion without pain. No tenderness, weakness, swelling, increased warmth or erythema. Shoulders: Full range of motion without pain. No tenderness, weakness, swelling, increased warmth or erythema. Hips: Full range of motion without pain. Hip bursa: No tenderness to palpation Knees: ?Full range of motion. ?No tenderness, swelling, increased warmth or erythema.?No effusion or crepitations Ankles: Full range of motion. ?No tenderness, swelling, increased warmth or erythema.? Feet: ?Negative squeeze test. ?No tenderness to palpation or swelling of the MTPs. Tender points:?No tenderness to palpation of the bilateral trapezius, supraspinatus, greater trochanters, anterior costochondral junctions, bilateral gluteal areas, bilateral suboccipital muscle insertions SKIN Skin intact without rashes. Livedeo reticularis No gottrons sign, holster sign, shawl sign normal capillary nailfolds neck flexion 4 data collection associate strength 5 5 wrist flexion 5 5 wrist extension 5 5 shoulder abduction 3 3 shoulder adduction 4 4 hip flexion 4 4 knee extension 5 5 knee flexion 5 5 ankle dorsiflexion 5 5 ankle plantarflexion 5 5 Results Reviewed Results Reviewed: Laboratory Tests 10/28/24 12/02/24 12/11/24 11:02 11:13 12:45 KENNY Screen POSITIVE A KENNY Titer 1:40 H KENNY Pattern Nuclear, Speckled A Proteinase 3 (PR3) Ab <1.0 Myeloperoxidase Ab <1.0 KELSEY-1 Antibody <11 EJ Antibody <11 OJ Antibody <11 Mi-2-Alpha Ab <11 Mi-2-Beta Ab 26 H NXP-2 Ab <11 PL-7 Antibody <11 PL-12 Antibody <11 SRP Ab <11 MDA5 Ab <11 Myos P155/140 TIF1-g Ab <11 HMGCR IgG Antibody 224 H NT5C1A IgG Antibody 6 Anti-Smooth Muscle Ab <20 Tiss Transglutamin IgG <1.0 Tiss Transglutamin IgA <1.0 Rae/Kid Microsom Ab Int <=20.0 Hep Bs Antigen Negative Hep Bs Antibody REACTIVE Hep B Core Total Ab Reactive Hepatitis C Ab (EIA) Nonreactive Laboratory Tests 12/11/24 12/17/24 12/17/24 12:45 23:33 23:34 02/11/25 [facility] 02/16/25 [facility] WBC 10.6 RBC 4.65 Hgb 12.3 Hct 37.3 Plt Count 517 H ESR 14 Sodium 138 Potassium 4.2 Chloride 103 Carbon Dioxide 26 BUN 15 Creatinine 0.60 AST 144 H ALT 313 H Alkaline Phosphatase 59 Total Creatine Kinase 6559 H 3996 H 52604 H 4253 H C-Reactive Protein < 0.10 Liver Elastography 12/2024 FINDINGS: Liver: The right lobe of the liver measures 15.9 cm in size. The left lobe of the liver measures 9.1 cm in size. The liver demonstrates normal homogeneous echotexture. Again seen is calcification in the right lobe. No focal mass or intrahepatic biliary ductal dilatation is identified. There is normal hepatopedal flow in the portal vein. Ultrasound elastography of the liver was performed with 10 separate measurements of the liver parenchyma with the patient in the supine position. Measurements were obtained approximately 2 cm below Isaac's capsule and perpendicular to the capsule. Images are of satisfactory quality. The median shear wave velocity is 1.13 m/s. The interquartile range/median (IQR/median) is 0.09. Gallbladder and biliary tree: The gallbladder is surgically absent. The common bile duct is normal in caliber measuring 7 mm. Right Kidney: The right kidney measures 10.7 cm in length. The right kidney is unremarkable, without evidence of masses, hydronephrosis, or calculi. Pancreas: The pancreatic head, neck, and body are unremarkable. The pancreatic tail is obscured by bowel gas. Abdominal aorta and inferior vena cava: The visualized portions of the abdominal aorta and inferior vena cava are normal in caliber. There is no free fluid in the right upper quadrant. US/US abdomen montano w elastography IMPRESSION: Unremarkable right upper quadrant ultrasound. The median shear wave velocity is 1.13 m/s, corresponding to a median liver stiffness of 3.82 kPa. The IQR/median value is 0.09. This is indicative of a quality data set. Findings are indicative of a normal elastography value with a low likelihood of severe fibrosis or cirrhosis. MRI Bilateral Femur 01/05/25 Findings: Visualized osseous structures are within normal limits. No fracture nor osseous lesion. No soft tissue fluid collections. Visualized musculature is intact. No masses are seen. Assessment & Plan Assessment & Plan (1) Dermatomyositis: Code(s): M33.13 - Other dermatomyositis without myopathy Category: Medical Plan: #Dermatomyositis/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 Based on the antibody profile she is mi 2 positive and HMGCR antibody positive. Here today after hospital visit for worsening CK. 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 We will start IVIG infusions and continue a slow prednisone taper. We will check blood work today and have her follow up March 12 (in 4 weeks) I attempted to contact [facility] pathology and was told that they send their pathology out to [facility] in [place]. Contacted [facility] pathology department and they said the only received the sample 02/13/25. Dr. Jernigan is the pathologist who will be reading the slides I left a message for her with my number for her to follow up with me with preliminary reports. Plan - IVIG 2g/kg monthly - Prednisone 60mg for 1 more week then 40mg for 2 weeks then follow up - Labs today: CBC, CMP, ESR, CRP, immunoglobulins - RTC 02/09/25 - Labs before visit: CBC, CMP, ESR, CRP (2) Long-term current use of intravenous immunoglobulin (IVIG): Code(s): Z79.899 - Other long term care pharmacist (current) drug therapy Plan: #Long-term use of IVIG Discussed with this patient the risks and benefits of IVIG use to the management of the rheumatic condition Benefits include improved disease control and maintenance of remission Risks include anaphylaxis, blood clots, transfusion related acute lung injury, hemolytic reaction, fluid overload, heart problems Plan I spent 62 minutes reviewing the record and labs, taking a history, examining the patient, discussing the treatment plan, ordering diagnostic work up, contacting [facility] and [place] for pathology report and documenting in the medical record Orders: Orders C Reactive Protein 03/11/25 M33.13 - Other dermatomyositis without myopathy Aldolase 03/11/25 M33.13 - Other dermatomyositis without myopathy Complete Blood Count Auto Diff Today M33.13 - Other dermatomyositis without myopathy Comprehensive Met. Panel Today - Other dermatomyositis without myopathy Aldolase Today . - Other dermatomyositis without myopathy Erythrocyte Sedimentation Rate Today - Other dermatomyositis without myopathy Immunoglobulins,IgG IgA IgM Today - Other dermatomyositis without myopathy T Spot TB Today - Other dermatomyositis without myopathy Complete Blood Count Auto Diff 03/11/25 - Other dermatomyositis without myopathy Comprehensive Met. Panel 03/11/25. - Other dermatomyositis without myopathy Creatine Kinase Total 03/11/25. - Other dermatomyositis without myopathy Erythrocyte Sedimentation Rate 03/11/25. - Other dermatomyositis without myopathy C Reactive Protein Today - Other dermatomyositis without myopathy Creatine Kinase Total Today - Other dermatomyositis without myopathy Hepatitis A,B,C Profile Today - Other dermatomyositis without myopathy Referrals Infusion Center Notification - Other dermatomyositis without myopathy Medications: Changed From prednisone 60 mg PO DAILY - Other dermatomyositis without myopathy To prednisone Take 3 tablets daily for 7 days until 02/25/25 THEN take 2 tablets daily for 15 days until 03/12/25 51 tabs 0RF - Other dermatomyositis without myopathy Coding Level of Care Code Est Pt Level 5 (64905) Complex EM visit Add On G2211 Diagnoses Dermatomyositis Long-term current use of intravenous immunoglobulin (IVIG) Z79.899
== END 2025-02-18 11:48 | disposition home or self-care (01) ==
LOC: HO.RHE 10:14
PROVIDERS: PCP Internal Medicine; Visit Provider Student in an Organized Health Care Education/Training Program
DX: M33.13 Other dermatomyositis without myopathy (principal); Z79.899 Other long term (current) drug therapy
CPT/HCPCS: 99215; G2211

== ENCOUNTER 2025-02-18 12:13 | Outpatient (REF) | payer OTHER, SELFPAY ==
[2025-02-18 12:34] LABS: MANUAL DIFF FLAG NO
[2025-02-18 13:17] LABS: Basophils Percent Auto 0.1 % (0-2); Eosinophils Percent Auto 0.1 % (0-4); Hematocrit 31.6 % (37.0-47.0); Hemoglobin 10.4 g/dl (12.0-16.0); Imm Gran Abs Auto 0.17 X10*3/uL (0.00-0.03); Imm Gran Pct Auto 0.9 % (0.0-0.4); Lymphocytes Absolute Auto 1.1 X10*3/uL (1.2-4.9); Lymphocytes Percent Auto 5.9 % (20-40); Mean Corpuscular HGB Conc 32.9 g/dl (31.0-35.0); Mean Corpuscular Hemoglobin 26.5 pg (27.0-33.0); Mean Corpuscular Volume 80.4 fL (80.0-98.0); Mean Platelet Volume 8.9 fL (9.4-12.3); Monocytes Absolute Auto 0.6 X10*3/uL (0.1-1.2); Monocytes Percent Auto 3.2 % (2-11); Neutrophils Percent Auto 89.8 % (45-73); Platelet Count 599 X10*3/uL (160-400); Red Blood Count 3.93 X10*6/uL (4.20-5.50); Red Cell Distribution Width 15.7 % (11.0-16.0); White Blood Count 18.9 X10*3/uL (4.8-10.8)
[2025-02-18 13:53] LABS: Alanine Aminotransferase 494 U/L (0-31); Albumin Level 4.1 g/dL (3.5-5.0); Alkaline Phosphatase 81 U/L (39-117); Anion Gap 13 (12-20); Aspartate Amino Transferase 144 U/L (5-31); Bilirubin Total 0.7 mg/dL (0.0-1.0); Blood Urea Nitrogen 19 mg/dL (9-16); C Reactive Protein 0.33 mg/dL (< or = 0.50); Calcium 9.9 mg/dL (8.4-10.2); Carbon Dioxide 26 mmol/L (22-29); Chloride 104 mmol/L (96-108); Estimated Glomerular Filt Rate > 60; Glucose Random 297 mg/dL (60-115); Potassium 4.2 mmol/L (3.3-5.1); Sodium 139 mmol/L (135-145)
[2025-02-18 13:56] LABS: Erythrocyte Sedimentation Rate 18 MM/HR (0-20)
--- OUTSIDE RECORDS SUMMARY | 2025-02-18 14:36 | XMS_ITS | Clinical Summary ---
Author Organization [employer] Address [address] [place] [address] Care Team Providers Care Bible Reader Name Role Phone Unavailable Primary Care Provider [...] e 2 diabetes mellitus treated with insulin ([facility]) INJECT 8 UNITS SUBCUTANEOUSLY ONCE DAILY IN THE EVENING 15 mL 3 11/01/20 23 Active linaGLIPtin (Tradjenta) 5 MG tabletIndications: Type 2 diabetes mellitus without complication, with long-term current use of insulin ([facility]) TAKE 1 TABLET BY MOUTH [...] 10 MGIndications:Type 2 diabetes mellitus with hyperglycemia ([facility]) TAKE 1 TABLET BY MOUTH [...] complication, with long-term current use of insulin ([facility]) TAKE 1 TABLET BY MOUTH TWICE DAILY AT NOON AND IN THE EVENING 180 tablet 1 03/20/20 24 Active lisinopril 20 MG tabletIndications: Primary hypertension TAKE 1 TABLET BY MOUTH AT BEDTIME 90 tablet 2 05/22/20 24 Active FREESTYLE LITE test stripIndications:T ype 2 diabetes mellitus with hyperglycemia ([facility]/HCC) TEST BLOOD SUGAR 3 TIMES [...] -Pt in the process of re-establishing with [facility] End[facility] -Per last available consult note: -CONT [...] Type Department Care Team Description 01/16/2025 Refill [facility] [address] [place] [address] Kimberley Cunningham FNP Type 2 diabetes mellitus with hyperglycemia ([facility]/HCC) 01/12/2025 Refill [facility] [address] [place], [place] [phone] Kimberley Cunningham FNP Type 2 diabetes mellitus with hyperglycemia ([facility]) from Last 3 Months Immunizations [...] Additional history exists Eye Exam 01/18/2025 01/18/2024, 2 01/2024, 01/18/2024, Additional history exists Tobacco Screening [...] complication, with long-term current use of insulin ([facility]) MAMMOGRAM GENERIC Routine 10/05/2022 10: [...] Legacy Procedure: Mammography Report 1 Procedure Note Provider, MD Bev - 02/18/2023 Refer to the Notes tab for result details Legacy Procedure: Mammography Report 1 Kimberley Cunningham TOBACCO STRIPPER HAND IMG BI PROCEDURES Final Result * LIPID [...] ?? Jesús ROBERTS et al. KORTNEY. 2013;310(19): 1776-2383 ?? (http://education.MethylGene/faq/PJQ667) Non-HDL Cholesterol 87 <130 mg/dL (calc) [facility] Comment: For patients with diabetes plus 1 major ASCVD risk ?? factor, treating to a non-HDL-C goal of <100 mg/dL ?? (LDL-C of <70 mg/dL) is considered a therapeutic ?? option. Triglycerides 91 <150 mg/dL [facility] 10/04/2022 8:50 AM EST Kimberley Cunningham [facility] LAB BLOOD ORDERABLES Final Res ult [facility] * MICROALBUMIN, RANDOM (07/13/2021 10:40 AM EDT) Creatinine Urine 30.03 mg/dL [facility] Microalbum/Creati nine Ratio Ur TNP ug/mg cr [facility] Comment: Unable to calculate albumin/creatinine ratio due to low microalbumin or creatinine result. Microalbumin Urine <5.0 mg/L [facility] 07/13/2021 10:4 0 AM EDT Historical Provider HISTORICAL/NON ORDERABLE LABS Final Result Performing Organization Address City/[facility]/ZIP Co de Phone Number [facility] [address] * Pap Smear (03/14/2019) Pap Negative for intraephithelial lesion or malignancy Negative for intraephithelial lesion or malignancy, Other HPV Not Detected Undetected, Indeterminate, Quantitative, Not Detected Historical Provider HEALTH MAINTENANCE Final Result * Colonoscopy (10/22/2017) Colonoscopy Normal Normal Narrative Sandra Villareal - 10/22/2017 Repeat in 10 years us Historical Provider HEALTH MAINTENANCE Final Result from Last 3 Months or Most Recently Relevant to Health Maintenance Insurance [facility] STAND ADULT
--- OUTSIDE RECORDS SUMMARY | 2025-02-18 14:37 | XMS_ITS | Encounter Summary ---
Author Organization [employer] Address [address] [place] [address] Care Team Providers Care Animal Behaviourist Name Role Phone Kimberley Cunningham BOOK AGENT Primary Care Provider [phone] Reason for Visit * Reason Comments Med Refill Encounter Details Date Type Department Care Team ([facility] st Contact Info) Description 09/08/2023 Refill [facility] MED[facility]INE [address] [place], [place] [phone] Jojo Washburn MD [address] [place], [place] [phone] Depressive disorder Social History Tobacco Use Types [...] documented as of this encounter Care Teams Animal Behaviourist Relationship Specialty Start Date End Date Kimberley Cunnignham FNP [address] [place] [phone] PCP - General Family Medicine 07/23/22 03/20/24 documented as of this encounter
--- OUTSIDE RECORDS SUMMARY | 2025-02-18 14:37 | XMS_ITS | Encounter Summary ---
Author Organization [employer] Address [address] [place] [address] Care Team Providers Care Gold Letterer Name Role Phone Unavailable Primary Care Provider Unavailabl e Reason for Visit * Reason Comments Med Refill Encounter Details Date Type Department Care Team (Late st Contact Info) Description 06/17/2024 Refill [facility] MED[facility]INE [address] [place] [address] Kimberley Cunningham FNP [address] [place] [address] Other hyperlipidemia; Type 2 diabetes mellitus with [...]
--- OUTSIDE RECORDS SUMMARY | 2025-02-18 14:37 | XMS_ITS | Encounter Summary ---
Author Organization [employer] Address [address] [place] [address] Care Team Providers Care Menu Planner Name Role Phone Unavailable Primary Care Provider Unavailabl e Reason for Visit * Reason Comments Med Refill Encounter Details Date Type Department Care Team (Late st Contact Info) Description 05/20/2024 Refill [facility] MED[facility]INE [address] [place] [address] Kimberley Cunningham FNP [address] [place] [address] Primary hypertension Social History Tobacco Use Types [...] t he electric, gas, oil or water [employer] threatened to shut off services in your [...]
--- OUTSIDE RECORDS SUMMARY | 2025-02-18 14:37 | XMS_ITS | Encounter Summary ---
Author Organization [employer] Address [address] [place] [address] Care Team Providers Care Strategic Planning Director Name Role Phone Unavailable Primary Care Provider Unavailabl e Reason for Visit * Reason Comments Med Refill Encounter Details Date Type Department Care Team (Late st Contact Info) Description 01/12/2025 Refill [facility] [address] [place] [address] Kimberley Cunningham FNP [address] [place] [address] Type 2 diabetes mellitus with hyperglycemia (CMS/HCC) [...]
--- OUTSIDE RECORDS SUMMARY | 2025-02-18 14:37 | XMS_ITS | Encounter Summary ---
Author Organization [employer] Address [address] [facility] [address] [address] 7t [place] [address] Care Team Providers Care Sanitarian Name Role Phone Unavailable Primary Care Provider Unavailabl e Reason for Visit * Reason Comments Med Refill Encounter Details Date Type Department Care Team ([facility] st Contact Info) Description 11/13/2024 Refill [facility] MEDICINE [address] [place] [address] Kimberley Cunningham FNP [address] [place] [address] Type 2 diabetes mellitus without complication, with long-term current use of insulin ([facility]) Social History Tobacco Use Types [...] complication, with long-term current use of insulin ([facility]) documented in this encounter Additional Health Concerns Assessment Noted Time PHQ-9 Depression Total Score: 2 01/09/20 23 9:19 AM EST documented as of this encounter
--- OUTSIDE RECORDS SUMMARY | 2025-02-18 14:37 | XMS_ITS | Encounter Summary ---
Author Organization [employer] [facility] Address [address] [facility] 7t [place] [address] Care Team Providers Care Technical Sales Consultant Name Role Phone Kimberley Cunningham Primary Care Provider [phone] Encounter Details Date Type Department Care Team (Latest Contact Info) Description 01/20/2021 Abstract [facility] CONVERSIONS Dental, Provider, DDS Social History [...] on filedocumented in this encounter Care Teams Technical Sales Consultant Relationship Specialty Start Date End Date Kimberley Cunningham FNP [address] [place] [address] PCP - General Family Medicine 07/23/22 03/20/24 documented as of this encounter
--- OUTSIDE RECORDS SUMMARY | 2025-02-18 14:37 | XMS_ITS | Encounter Summary ---
Author Organization [employer] Address [address] [facility] [address]t [place] [address] Care Team Providers Care Music Orchestrator Name Role Phone Unavailable Primary Care Provider Unavailabl e Reason for Visit * Reason Comments Med Refill Encounter Details Date Type Department Care Team (Late st Contact Info) Description 05/21/2024 Refill [facility] MEDICINE [address] [place] [address] Kimberley Cunningham FNP [address] [place] [address] Primary hypertension Social History Tobacco Use Types [...] t he electric, gas, oil or water [employer] threatened to shut off services in your [...]
--- OUTSIDE RECORDS SUMMARY | 2025-02-18 14:37 | XMS_ITS | Encounter Summary ---
Author Organization [employer] Address [address] [facility] [address] 7[address] [place] [address] Care Team Providers Care Assembler Aircraft Power Plant Name Role Phone Unavailable Primary Care Provider Unavailabl e Reason for Visit * Reason Comments Med Refill Encounter Details Date Type Department Care Team (Late st Contact Info) Description 08/12/2024 Refill [facility] MEDICINE [address] [place] [address] Kimberley Cunningham FNP [address] [place] [address] Vitamin D insufficiency Social History Tobacco Use [...] the past 12 months, has t he [employer], gas, oil or water company threatened to [...]
--- OUTSIDE RECORDS SUMMARY | 2025-02-18 14:37 | XMS_ITS | Encounter Summary ---
Author Organization [facility] Address 75 [facility] 7t [place] [address] Care Team Providers Care Custom Dressmaker Name Role Phone Kimberley Cunningham Primary Care Provider [phone] Encounter Details Date Type Department Care Team (Latest Contact Info) Description 01/07/[address] [facility] CONVERSIONS Dental, Provider, DDS Social History [...] on filedocumented in this encounter Care Teams Custom Dressmaker Relationship Specialty Start Date End Date Kimberley Cunningham FNP [address] [place] [address] PCP - General Family Medicine 07/23/22 03/20/24 documented as of this encounter
--- OUTSIDE RECORDS SUMMARY | 2025-02-18 14:37 | XMS_ITS | Encounter Summary ---
Author Organization [employer] Address [address] [place] [address] Care Team Providers Care Wrapper Hands Sprayer Name Role Phone Unavailable Primary Care Provider Unavailabl e Reason for Visit * Reason Comments Med Refill Encounter Details Date Type Department Care Team (Late st Contact Info) Description 01/16/2025 Refill [facility] MEDICINE [address] [place] [address] Kimberley Cunningham FNP [address] [place] [address] Type 2 diabetes mellitus with hyperglycemia (CMS/HCC) [...]
--- OUTSIDE RECORDS SUMMARY | 2025-02-18 14:37 | XMS_ITS | Encounter Summary ---
Author Organization [employer] Address [address] [facility] [address] 7t [place] [address] Care Team Providers Care Land Title Examiner Name Role Phone Unavailable Primary Care Provider Unavailabl e Reason for Visit * Reason Comments Med Refill Encounter Details Date Type Department Care Team ([facility] st Contact Info) Description 09/10/2024 Refill [facility] MED & PEDS [address] [place], [place] [phone] Kimberley Cunningham, EILEEN [address] [place], [place] [phone] Depressive disorder Social History Tobacco Use Types [...] t he electric, gas, oil or water [employer] threatened to shut off services in your [...]
--- OUTSIDE RECORDS SUMMARY | 2025-02-18 14:37 | XMS_ITS | Encounter Summary ---
Author Organization [employer] Address [address] [facility] [address] [place] [address] Care Team Providers Care Box Spring Frame Builder Name Role Phone Unavailable Primary Care Provider Unavailabl e Reason for Visit * Reason Comments Med Refill Encounter Details Date Type Department Care Team ([facility] st Contact Info) Description 08/15/[address] [facility] CH[facility] MED & PEDS 505 [place], [place] [phone] Kimberley Cunningham, PRODUCT REPRESENTATIVE [address] [place], [place] [phone] Hypothyroidism, unspecified type Social History Tobacco Use [...]
--- OUTSIDE RECORDS SUMMARY | 2025-02-18 14:37 | XMS_ITS | Encounter Summary ---
Author Organization [employer] Address [address] [facility] [address] 7[address] [place] [address] Care Team Providers Care Lift Builder Whole Name Role Phone Kimberley Cunningham HEAD NECK SURGEON Primary Care Provider [phone] Encounter Details Date Type Department Care Team (Late st Contact Info) Description 10/12/2023 Abstract [facility] MEDICINE [address] [place], [place] [phone] Sandra Villareal Social History Tobacco Use Types [...] documented as of this encounter Care Teams Lift Builder Whole Relationship Specialty Start Date End Date Kimberley Cunningham FNP [address] [place] [address] PCP - General Family Medicine 07/23/22 03/20/24 documented as of this encounter
--- OUTSIDE RECORDS SUMMARY | 2025-02-18 14:37 | XMS_ITS | Encounter Summary ---
Author Organization [employer] Address [address] [facility] 7t [place] [address] Care Team Providers Care Radiotelegraph Operator Servicer Name Role Phone Kimberley Cunningham Primary Care Provider [phone] Reason for Visit * Reason Comments Med Refill Encounter Details Date Type Department Care Team ([facility] st Contact Info) Description 07/26/[address] [facility] MEDICINE [address] [place] [address] Kimberley Cunningham FNP [address] [place] [address] Depressive disorder Social History Tobacco Use Types [...] documented as of this encounter Care Teams Radiotelegraph Operator Servicer Relationship Specialty Start Date End Date Kimberley Cunningham FNP [address] [place] [address] PCP - General Family Medicine 07/23/22 03/20/24 documented as of this encounter
--- OUTSIDE RECORDS SUMMARY | 2025-02-18 14:37 | XMS_ITS | Encounter Summary ---
Author Organization [employer] Address [address] [facility] 7t [place] [address] Care Team Providers Care Rn Hedis Name Role Phone Unavailable Primary Care Provider Unavailabl e Reason for Visit * Reason Comments Med Refill Encounter Details Date Type Department Care Team ([facility] st Contact Info) Description 10/13/2024 Refill [facility] MED & PEDS [address] [place], [place] [phone] Kimberley Cunningham, EILEEN [address] [place] [address] Type 2 diabetes mellitus without complication, with long-term current use of insulin ([facility]) Social History Tobacco [...] complication, with long-term current use of insulin ([facility]) documented in this encounter Additional Health Concerns Assessment Noted Time PHQ-9 Depression Total Score: 2 01/09/20 23 9:19 AM EST documented as of this encounter
[2025-02-19 04:34] LABS: HBS Num1 173.96 mIU/mL (0-7.99); HBc Num1 8.67 S/CO (0.00-0.79); HBsAGNum1 0.33 S/CO (0.00-0.99); Hepatitis B Surface Antigen Negative (Negative); ~Hepatitis A Antibody IgM Nonreactive (Nonreactive); ~Hepatitis B Surface Antibody REACTIVE (Nonreactive); ~Hepatitis C Antibody Nonreactive (Nonreactive)
[2025-02-19 05:37] LABS: HBc Num2 9.39 S/CO; Hepatitis B Core Antibody Reactive (Nonreactive)
[2025-02-19 21:58] LABS: IgA 298 mg/dL (70-320); IgG 1053 mg/dL (600-1540); IgM 62 mg/dL (50-300)
== END 2025-02-18 12:14 | disposition home or self-care (01) ==
LOC: HO.NEURO 12:13
PROVIDERS: PCP Internal Medicine; Visit Provider Student in an Organized Health Care Education/Training Program
DX: M33.13 Other dermatomyositis without myopathy (principal); Z79.899 Other long term (current) drug therapy
CPT/HCPCS: 36415; 80053; 82085; 82550; 82784; 85025; 85652; 86140; 86481; 86704; 86706; 86709; 86803; 87340

== ENCOUNTER 2025-03-02 13:58 | Outpatient (AMB) | payer OTHER, SELFPAY ==
[2025-03-02 14:02] VITALS: BP 115/38; PULSE 73; BMI 21.2
--- NOTE | 2025-03-02 14:02 | MHC.OFFVIS ---
Vital Signs 03/02/25 14:02 Height 5 ft 4 in Weight 123 lb 7.342 oz BMI 21.2 BP 115/38 L Blood Pressure Location Lt brachial Position Sitting Pulse 73 Intake Visit Reasons: 4 months follow up Intake Note: Denise presents in the office as a 4 month follow up. CC: She states that she is having some acid reflux and gas in the stomach - pains in the epigastric region. She has times when her stomach makes noises. Media Relations Director Required: Yes Allergies penicillin V Allergy (Unknown, Verified 03/02/25 14:07) hives Penicillins [PENICILLINS] Allergy (Unknown, Verified 03/02/25 14:07) RASH,DIZZINESS HPI Comments Details: 63 yr old f here for f/u for abn LFT RECAP: she had chronic AST and ALT elevation. US 09/17- normal echogenicity liver, calcification noted she had epigastric pain for 2 weeks comes in waves worse with food she had nausea she had acid reflux she takes pantoprazole but not taking it for last 3 weeks as she felt it made her bloating she had h pylori in the past she denied diarrhea or constipation I ordered repeat US: 01/20 nml appearing liver and ealstography INTERIM: LFT were high, CK was in thousands she stopped statin but CK remains high she has muscular pains she has epigastric pain and discomfort assoc with nausea taking pantoprazole saw rheum and now getting pred treatment EXAM: GENERAL: The patient is well developed and nontoxic. VITAL SIGNS:see workflow HEENT: Nonicteric sclerae, PERRLA, EOMI. Oropharynx clear. Moist mucous membranes. Conjunctivae appear well perfused. No thyroid mass. CHEST: Chest wall is nontender. HEART: Regular rate and rhythm without murmurs. LUNGS: Clear to auscultation bilaterally. ABDOMEN: Soft, positive bowel sounds, tender epigastrium , no organomegaly.no flank tenderness SKIN: No rash, no excessive bruising, petechiae, or purpura. NEUROLOGIC: Cranial nerves II-XII intact without motor/sensory deficit. Psych: normal affect A/P: 1/ Epigastric pain, stopped PPI ?retained gallstones, h pylori recurrence 2/ Myositis ?autoimmune or due to statin use PLAN: 1/ EGD and colonoscopy---suprep--r/o neoplasia [facility] Medical History Dermatomyositis Elevated CK CAD (coronary artery disease) STEMI (ST elevation myocardial infarction) GERD (gastroesophageal reflux disease) Physical exam, pre-employment Sebaceous cyst RUQ pain Cervical polyp Muscle strain of right scapular region H. pylori infection Overweight (BMI 25.0-29.9) Hypertension Hypothyroidism FPC (current) use of insulin Diabetes type 2, uncontrolled Surgical History (Updated 03/02/25 @ 14:08 by MIGDALIA Martin) Hx of knee surgery History of coronary artery stent placement Hx of tubal ligation Hx of cholecystectomy Family History Unknown No problems noted. Father Diabetes Heart disease Mother Diabetes Hypertension Heart disease Brother Lung cancer Sister Heart disease Social History Household Members: Family Housing: House Are you a primary career technology teacher to a significant other at home: No Do you presently have visiting nurse or other home services: Yes Unable to assess alcohol history related to: Unknown Alcohol intake: never Patient Tobacco Use Status: Never used Tobacco Tobacco use type: Cigarette e-Cigarette/Vaping Use: Never Used Second Hand Smoke Exposure: No service: No Current occupational status: employed and disabled Current occupation: [employer] Cognitive needs: No Hearing needs: No Vision needs: No Female Reproductive History Menstrual Age of Menarche: 12 Physical Exam Vital Signs: Last Vital Signs Pulse 73 03/02/25 14:02 BP 115/38 L 03/02/25 14:02 BMI result Body Mass Index 21.2 Assessment & Plan Assessment & Plan (1) Epigastric pain: Code(s): R10.13 - Epigastric pain Category: Medical Plan: as above Coding Level of Care Code Est Pt Level 3 (55027) Diagnoses Epigastric pain R10.13
--- OUTSIDE RECORDS SUMMARY | 2025-03-02 16:44 | XMS_ITS | Clinical Summary ---
Author Organization [employer] Address [address] [facility] 7t [place] [address] Care Team Providers Care Ball Sorter Name Role Phone Unavailable Primary Care Provider [...] e 2 diabetes mellitus treated with insulin ([facility]) INJECT 8 UNITS SUBCUTANEOUSLY ONCE DAILY IN THE EVENING 15 mL 3 11/01/20 23 Active linaGLIPtin (Tradjenta) 5 MG tabletIndications: Type 2 diabetes mellitus without complication, with long-term current use of insulin ([facility]) TAKE 1 TABLET BY MOUTH EVERYDAY AT [...] 10 MGIndications:Type 2 diabetes mellitus with hyperglycemia ([facility]) TAKE 1 TABLET BY MOUTH EVERYDAY AT [...] of insulin ([facility]) TAKE 1 TABLET BY MOUTH TWICE DAILY AT NOON AND IN THE EVENING 180 tablet 1 03/20/20 24 Active lisinopril 20 MG tabletIndications: Primary hypertension TAKE 1 TABLET BY MOUTH AT BEDTIME 90 tablet 2 05/22/20 24 Active FREESTYLE LITE test stripIndications:T ype 2 diabetes mellitus with hyperglycemia ([facility]/HCC) TEST BLOOD SUGAR 3 TIMES A DAY [...] -Pt in the process of re-establishing with [facility] -Per last available consult note: -CONT [...] Type Department Care Team Description 01/16/2025 Refill [facility] MEDICINE [address] [place] [address] Kimberley Cunningham FNP Type 2 diabetes mellitus with hyperglycemia ([facility]/HCC) 01/12/2025 Refill [facility] MEDICINE [address] [place], [place] [phone] Kimberley Cunningham FNP Type 2 diabetes mellitus with hyperglycemia ([facility]) from Last 3 Months Immunizations Name Administration [...] of insulin ([facility]) MAMMOGRAM GENERIC Routine 10/05/2022 10: 20 AM [...] Legacy Procedure: Mammography Report 1 Kimberley Cunningham BENCH TECHNICIAN IMG BI PROCEDURES Final Result * LIPID [...] ?? Jesús ROBERTS et al. KORTNEY. 2013;310(19): 1536-5253 ?? (http://education.Scholar Rock/faq/LLE379) Non-HDL Cholesterol 87 <130 mg/dL (calc) [facility] Comment: For patients with diabetes plus 1 major ASCVD risk ?? factor, treating to a non-HDL-C goal of <100 mg/dL ?? (LDL-C of <70 mg/dL) is considered a therapeutic ?? option. Triglycerides 91 <150 mg/dL [facility] 10/04/2022 8:50 AM EST Kimberley Cunningham [facility] LAB BLOOD ORDERABLES Final Res ult [facility] * MICROALBUMIN, RANDOM (07/13/2021 10:40 AM EDT) Creatinine Urine 30.03 mg/dL [facility] Microalbum/Creati nine Ratio Ur TNP ug/mg cr [facility] Comment: Unable to calculate albumin/creatinine ratio due to low microalbumin or creatinine result. Microalbumin Urine <5.0 mg/L [facility] 07/13/2021 10:4 0 AM EDT Historical Provider HISTORICAL/NON ORDERABLE LABS Final Result Performing Organization Address City/[facility]/ZIP Co de Phone Number [facility] [address] * Pap Smear (03/14/2019) Pap Negative [...] Most Recently Relevant to Health Maintenance Insurance [facility] MED[facility] STAND ADULT
--- OUTSIDE RECORDS SUMMARY | 2025-03-02 16:44 | XMS_ITS | Encounter Summary ---
Author Organization [employer] Address [address] [facility] [address]t [place] [address] Care Team Providers Care Asset Protection Agent Name Role Phone Unavailable Primary Care Provider Unavailabl e Reason for Visit * Reason Comments Med Refill Encounter Details Date Type Department Care Team (Late st Contact Info) Description 06/17/2024 Refill [facility] MEDICINE [address] [place] [address] Kimberley Cunningham FNP [address] [place] [address] Other hyperlipidemia; Type 2 diabetes mellitus with [...]
--- OUTSIDE RECORDS SUMMARY | 2025-03-02 16:44 | XMS_ITS | Encounter Summary ---
Author Organization [employer] Address [address] [address] [facility] [address] [place] [address] Care Team Providers Care Biology Intern Name Role Phone Unavailable Primary Care Provider Unavailabl e Reason for Visit * Reason Comments Med Refill Encounter Details Date Type Department Care Team (Late st Contact Info) Description 08/12/2024 Refill [facility] MEDICINE [address] [place] [address] Kimberley Cunningham FNP [address] [place] [address] Vitamin D insufficiency Social History Tobacco Use [...] the past 12 months, has t he [employer], gas, oil or water company threatened to [...]
--- OUTSIDE RECORDS SUMMARY | 2025-03-02 16:44 | XMS_ITS | Encounter Summary ---
Author Organization [employer] Address [address] [facility] [facility] [address] [facility] [address]t [place] [address] Care Team Providers Care Sand Screener Name Role Phone Unavailable Primary Care Provider Unavailabl e Reason for Visit * Reason Comments Med Refill Encounter Details Date Type Department Care Team (Late st Contact Info) Description 01/16/2025 Refill [facility] MEDICINE [address] [place] [address] Kimberley Cunningham FNP [address] [place] [address] Type 2 diabetes mellitus with hyperglycemia (CMS/HCC) [...]
--- OUTSIDE RECORDS SUMMARY | 2025-03-02 16:44 | XMS_ITS | Encounter Summary ---
Author Organization [employer] Address [address] [facility] [address] [facility] [address] 7t [place] [address] Care Team Providers Care Lcsw Name Role Phone Unavailable Primary Care Provider Unavailabl e Reason for Visit * Reason Comments Med Refill Encounter Details Date Type Department Care Team (Late st Contact Info) Description 05/21/2024 Refill [facility] MEDICINE [address] [place] [address] Kimberley Cunningham FNP [address] [place] [address] Primary hypertension Social History Tobacco Use Types [...] t he electric, gas, oil or water [employer] threatened to shut off services in your [...]
--- OUTSIDE RECORDS SUMMARY | 2025-03-02 16:44 | XMS_ITS | Encounter Summary ---
Author Organization [employer] Address [address] 7t [place] [address] Care Team Providers Care Solder Making Laborer Name Role Phone Unavailable Primary Care Provider Unavailabl e Reason for Visit * Reason Comments Med Refill Encounter Details Date Type Department Care Team (Late st Contact Info) Description 05/20/2024 Refill [facility] MEDICINE [address] [place] [address] Kimberley Cunningham FNP [address] [place] [address] Primary hypertension Social History Tobacco Use Types [...] t he electric, gas, oil or water [employer] threatened to shut off services in your [...]
--- OUTSIDE RECORDS SUMMARY | 2025-03-02 16:44 | XMS_ITS | Encounter Summary ---
Author Organization [employer] Address [address] [facility] [address]t [place] [address] Care Team Providers Care Respiratory Therapist Assistant Name Role Phone Unavailable Primary Care Provider Unavailabl e Reason for Visit * Reason Comments Med Refill Encounter Details Date Type Department Care Team ([facility] st Contact Info) Description 09/10/[address] [facility] CH[facility] MED & PEDS [address] [place], [place] [phone] Kimberley Cunningham, EILEEN [address] [place], [place] [phone] Depressive disorder Social History Tobacco Use Types [...] t he electric, gas, oil or water [employer] threatened to shut off services in your [...]
--- OUTSIDE RECORDS SUMMARY | 2025-03-02 16:44 | XMS_ITS | Encounter Summary ---
Author Organization [employer] Address [address] [facility] [address]t [place] [address] Care Team Providers Care Blocking Machine Tender Name Role Phone Unavailable Primary Care Provider Unavailabl e Reason for Visit * Reason Comments Med Refill Encounter Details Date Type Department Care Team ([facility] st Contact Info) Description 10/13/2024 Refill [facility] MED & PEDS [address] [place], [place] [phone] Kimberley Cunningham, EILEEN [address] [place] [address] Type 2 diabetes mellitus without complication, with long-term current use of insulin ([facility]) Social History Tobacco Use Types Packs/Day [...] complication, with long-term current use of insulin ([facility]) documented in this encounter Additional Health Concerns Assessment Noted Time PHQ-9 Depression Total Score: 2 01/09/20 23 9:19 AM EST documented as of this encounter
--- OUTSIDE RECORDS SUMMARY | 2025-03-02 16:45 | XMS_ITS | Encounter Summary ---
Author Organization [employer] Address [address] [place] [address] Care Team Providers Care Powder Line Repairer Name Role Phone Unavailable Primary Care Provider Unavailabl e Reason for Visit * Reason Comments Med Refill Encounter Details Date Type Department Care Team ([facility] st Contact Info) Description 08/15/2024 Refill [facility] CHC MED & PEDS [address] [place], [place] [phone] Kimberley Cunningham, ULTIMATE HOOPS REFEREE [address] [place] [address] Hypothyroidism, unspecified type Social History Tobacco Use [...]
--- OUTSIDE RECORDS SUMMARY | 2025-03-02 16:45 | XMS_ITS | Encounter Summary ---
Author Organization [employer] [facility] Address [address] [facility] 7t [place] [address] Care Team Providers Care Director Of Family Service Center Name Role Phone Kimberley Cunningham Primary Care Provider [phone] Encounter Details Date Type Department Care Team (Latest Contact Info) Description 01/20/2021 Abstract [facility] CONVERSIONS Dental, Provider, DDS Social [...] on filedocumented in this encounter Care Teams Director Of Family Service Center Relationship Specialty Start Date End Date Kimberley Cunningham FNP [address] [place] [address] PCP - General Family Medicine 07/23/22 03/20/24 documented as of this encounter
--- OUTSIDE RECORDS SUMMARY | 2025-03-02 16:45 | XMS_ITS | Encounter Summary ---
Author Organization [employer] [facility] Address [address] [facility] 7t [place] [address] Care Team Providers Care Survey Supervisor Name Role Phone Kimberley Cunningham Primary Care Provider [phone] Encounter Details Date Type Department Care Team (Latest Contact Info) Description 01/07/2020 Abstract [facility] CONVERSIONS Dental, Provider, DDS Social [...] on filedocumented in this encounter Care Teams Survey Supervisor Relationship Specialty Start Date End Date Kimberley Cunningham FNP [address] [place] [address] PCP - General Family Medicine 07/23/22 03/20/24 documented as of this encounter
--- OUTSIDE RECORDS SUMMARY | 2025-03-02 16:45 | XMS_ITS | Encounter Summary ---
Author Organization [employer] Address [address] [facility] [address] 7[address] [place] [address] Care Team Providers Care Head Of Cytogenetics Name Role Phone Unavailable Primary Care Provider Unavailabl e Reason for Visit * Reason Comments Med Refill Encounter Details Date Type Department Care Team (Late st Contact Info) Description 01/12/2025 Refill [facility] MEDICINE [address] [place] [address] Kimberley Cunningham FNP [address] [place] [address] Type 2 diabetes mellitus with hyperglycemia (CMS/HCC) [...]
--- OUTSIDE RECORDS SUMMARY | 2025-03-02 16:45 | XMS_ITS | Encounter Summary ---
Author Organization [employer] Address [address] 7[address] [place] [address] Care Team Providers Care Program Evaluation Consultant Name Role Phone Unavailable Primary Care Provider Unavailabl e Reason for Visit * Reason Comments Med Refill Encounter Details Date Type Department Care Team ([facility] st Contact Info) Description 11/13/2024 Refill [facility] MEDICINE [address] [place] [address] Kimberley Cunningham FNP [address] [place] [address] Type 2 diabetes mellitus without complication, with long-term current use of insulin ([facility]) Social History Tobacco Use Types [...] complication, with long-term current use of insulin ([facility]) documented in this encounter Additional Health Concerns Assessment Noted Time PHQ-9 Depression Total Score: 2 01/09/20 23 9:19 AM EST documented as of this encounter
--- OUTSIDE RECORDS SUMMARY | 2025-03-02 16:45 | XMS_ITS | Encounter Summary ---
Author Organization [employer] Address [address] [facility] 7t [place] [address] Care Team Providers Care Institute Director Name Role Phone Kimberley Cunningham EDM OPERATOR Primary Care Provider [phone] Reason for Visit * Reason Comments Med Refill Encounter Details Date Type Department Care Team ([facility] st Contact Info) Description 09/08/2023 Refill [facility] MEDICINE [address] [place], [place] [phone] Jojo Washburn MD [address] [place], [place] [phone] Depressive disorder Social History Tobacco Use Types [...] documented as of this encounter Care Teams Institute Director Relationship Specialty Start Date End Date Kimberley Cunningham FNP [address] [place] [id number] PCP - General Family Medicine 07/23/22 03/20/24 documented as of this encounter
--- OUTSIDE RECORDS SUMMARY | 2025-03-02 16:45 | XMS_ITS | Encounter Summary ---
Author Organization [employer] Address [address] [facility] 7t [place] [address] Care Team Providers Care Estate Manager Name Role Phone Kimberley Cunningham Primary Care Provider [phone] Reason for Visit * Reason Comments Med Refill Encounter Details Date Type Department Care Team ([facility] st Contact Info) Description 07/26/[address] [facility] MEDICINE [address] [place] [address] Kimberley Cunningham FNP [address] [place] [address] Depressive disorder Social History Tobacco Use Types [...] documented as of this encounter Care Teams Estate Manager Relationship Specialty Start Date End Date Kimberley Cunningham FNP [address] [place] [address] PCP - General Family Medicine 07/23/22 03/20/24 documented as of this encounter
--- OUTSIDE RECORDS SUMMARY | 2025-03-02 16:45 | XMS_ITS | Encounter Summary ---
Author Organization [employer] Address [address] [facility] [address] [place] [address] Care Team Providers Care District Customs Director Name Role Phone Kimberley Cunningham NAPHTHOL SOAPING MACHINE OPERATOR Primary Care Provider [phone] Encounter Details Date Type Department Care Team (Late st Contact Info) Description 10/12/2023 Abstract [facility] MEDICINE [address] [place], [place] [phone] Sandra Villareal Social History Tobacco Use Types [...] Start Date End Date Kimberley Cunningham FNP [address] [place] [id number] PCP - General Family Medicine 07/23/22 03/20/24 documented as of this encounter
== END 2025-03-02 14:34 | disposition home or self-care (01) ==
LOC: HO.HGI 13:58
PROVIDERS: PCP Internal Medicine; Visit Provider Internal Medicine Gastroenterology
DX: R10.13 Epigastric pain (principal)
CPT/HCPCS: 99213

== ENCOUNTER → 2025-03-02 13:58 | Outpatient (BNVA) | payer OTHER, SELFPAY | PROVIDERS: PCP Internal Medicine; Visit Provider Internal Medicine Gastroenterology | DX: K21.9 Gastro-esophageal reflux disease without esophagitis (principal); R10.13 Epigastric pain | CPT/HCPCS: 99212 ==

== ENCOUNTER 2025-03-07 08:33 | Outpatient (REF) | payer OTHER, SELFPAY ==
[2025-03-07 09:14] LABS: MANUAL DIFF FLAG NO
[2025-03-07 10:43] LABS: Basophils Percent Auto 0.3 % (0-2); Basophils Percent Auto 0.5 % (0-2); Eosinophils Absolute Auto 0.1 X10*3/uL (0.0-0.4); Eosinophils Percent Auto 1.6 % (0-4); Eosinophils Percent Auto 1.7 % (0-4); Hematocrit 36.9 % (37.0-47.0); Hemoglobin 11.7 g/dl (12.0-16.0); Hemoglobin 11.9 g/dl (12.0-16.0); Imm Gran Abs Auto 0.03 X10*3/uL (0.00-0.03); Imm Gran Abs Auto 0.04 X10*3/uL (0.00-0.03); Imm Gran Pct Auto 0.4 % (0.0-0.4); Imm Gran Pct Auto 0.5 % (0.0-0.4); Lymphocytes Absolute Auto 1.4 X10*3/uL (1.2-4.9); Lymphocytes Percent Auto 17.4 % (20-40); Mean Corpuscular HGB Conc 31.7 g/dl (31.0-35.0); Mean Corpuscular HGB Conc 33.1 g/dl (31.0-35.0); Mean Corpuscular Hemoglobin 26.2 pg (27.0-33.0); Mean Corpuscular Hemoglobin 26.9 pg (27.0-33.0); Mean Corpuscular Volume 81.4 fL (80.0-98.0); Mean Corpuscular Volume 82.7 fL (80.0-98.0); Mean Platelet Volume 8.7 fL (9.4-12.3); Mean Platelet Volume 8.9 fL (9.4-12.3); Monocytes Absolute Auto 0.4 X10*3/uL (0.1-1.2); Monocytes Percent Auto 4.9 % (2-11); Monocytes Percent Auto 5.1 % (2-11); Neutrophils Absolute Auto 5.8 x10*3/uL (2.0-8.3); Neutrophils Percent Auto 75.1 % (45-73); Platelet Count 455 X10*3/uL (160-400); Platelet Count 460 X10*3/uL (160-400); Red Blood Count 4.42 X10*6/uL (4.20-5.50); Red Blood Count 4.46 X10*6/uL (4.20-5.50); Red Cell Distribution Width 17.2 % (11.0-16.0); Red Cell Distribution Width 17.3 % (11.0-16.0); White Blood Count 7.8 X10*3/uL (4.8-10.8)
[2025-03-07 10:48] LABS: INTERNATIONAL NORM RATIO 0.9 (0.9-1.1); Prothrombin Time 10.4 SEC (10.9-12.4)
[2025-03-07 10:50] LABS: Immature Retic Fraction 28.2 % (3.0-15.9); Retic HGB Equivalent 30.7 pg (30.0-35.0); Reticulocyte Percent 2.4 % (0.5-1.8); Reticulocytes Absolute 0.108 X10*6/uL (0.026-0.095)
[2025-03-07 10:54] LABS: Appearance Urine Clear; Color Urine Yellow; Glucose Urine UA >=1000 mg/dL (Negative); Leukocyte Esterase Urine Small (1+) (Negative); Nitrite Urine Negative (Negative); UMIC TRIGGER UACC YES; Urine Blood Negative (Negative); Urine Ketones Negative (Negative); Urine Protein Negative (Neg-Trace)
[2025-03-07 10:59] LABS: Estimated Average Glucose 180 mg/dL; Hemoglobin A1C 199.7577 umol/L; Hemoglobin A1c % 7.9 % (<6.0); Total Hemoglobin (HGBA1C) 3203.9979 umol/L
[2025-03-07 11:01] LABS: Bacteria Urine None Seen (None Seen); Hyaline Casts Urine 0-2 /LPF (0-2); RBC Urine 0-2 /HPF (0-2); UACC Culture Trigger YES; WBC Urine 21-50 /HPF (0-5)
[2025-03-07 11:10] LABS: B Type Natriuretic Peptide 91 pg/mL (<100)
[2025-03-07 11:16] LABS: Alanine Aminotransferase 174 U/L (0-31); Albumin Level 3.9 g/dL (3.5-5.0); Alkaline Phosphatase 61 U/L (39-117); Anion Gap 12 (12-20); Aspartate Amino Transferase 46 U/L (5-31); Bilirubin Total 0.7 mg/dL (0.0-1.0); Blood Urea Nitrogen 19 mg/dL (9-16); C Reactive Protein 0.27 mg/dL (< or = 0.50); Calcium 9.4 mg/dL (8.4-10.2); Carbon Dioxide 28 mmol/L (22-29); Chloride 106 mmol/L (96-108); Estimated Glomerular Filt Rate > 60; Glucose Random 126 mg/dL (60-115); Sodium 142 mmol/L (135-145); Total Protein 8.3 g/dL (6.5-8.0)
[2025-03-07 11:19] LABS: Anion Gap 12 (12-20); Blood Urea Nitrogen 17 mg/dL (9-16); Calcium 9.5 mg/dL (8.4-10.2); Carbon Dioxide 28 mmol/L (22-29); Chloride 106 mmol/L (96-108); Estimated Glomerular Filt Rate > 60; Glucose Random 125 mg/dL (60-115); Iron 52 mcg/dL (30-160); Potassium 3.8 mmol/L (3.3-5.1); Sodium 142 mmol/L (135-145); Unsaturated Iron Binding 211 ug/dL
[2025-03-07 11:20] LABS: Alanine Aminotransferase 177 U/L (0-31); Albumin Level 3.9 g/dL (3.5-5.0); Alkaline Phosphatase 61 U/L (39-117); Aspartate Amino Transferase 47 U/L (5-31); Bilirubin Total 0.7 mg/dL (0.0-1.0); Cholesterol 185 mg/dL (<200); HDL Cholesterol 55 mg/dL (>40); LDL Cholesterol Calculated 99 mg/dL (<100); Percent Iron Saturation 20 % (15-50); Total Iron Binding Capacity 263 mcg/dL (228-428); Total Protein 8.4 g/dL (6.5-8.0); Triglycerides 155 mg/dL (<150)
[2025-03-07 11:23] LABS: Creatinine Urine 46.48 mg/dL; Microalbum/Creatinine Ratio Ur 55.9 ug/mg cr (<30)
[2025-03-07 11:34] LABS: Free T4 (Free Thyroxine) 1.11 ng/dL (0.71-1.85)
[2025-03-07 11:39] LABS: Ferritin 39 ng/mL (10-250); Thyroid Stimulating Hormone 10.48 uIU/mL (0.32-4.0)
[2025-03-07 11:40] LABS: Erythrocyte Sedimentation Rate 23 MM/HR (0-20)
[2025-03-07 11:43] LABS: Folate 10.5 ng/mL (> or = 4.0); Vitamin B12 319 pg/mL (200-900)
[2025-03-09 08:14] LABS: HBS Num1 905.56 mIU/mL (0-7.99); HBc Num1 9.41 S/CO (0.00-0.79); HBsAGNum1 0.57 S/CO (0.00-0.99); HIV AB/AG Nonreactive (Nonreactive); HIV Num 1 0.08 S/CO (0.00-0.99); Hepatitis B Surface Antigen Negative (Negative); ~HepC Num1 0.26 S/CO (0.00-0.79); ~Hepatitis B Surface Antibody REACTIVE (Nonreactive); ~Hepatitis C Antibody Nonreactive (Nonreactive)
[2025-03-09 09:26] LABS: HBc Num2 8.91 S/CO; HBc Num3 9.13 S/CO; Hepatitis B Core Antibody Reactive (Nonreactive)
[2025-03-12 21:28] LABS: Aldolase 17.7 U/L (<=8.1)
== END 2025-03-07 08:34 | disposition home or self-care (01) ==
LOC: HO.LAB 08:33
PROVIDERS: Internal Medicine Medical Oncology; PCP Internal Medicine; Visit Provider Student in an Organized Health Care Education/Training Program
DX: M33.13 Other dermatomyositis without myopathy (principal); Z86.2 Personal history of diseases of the blood and blood-forming organs and certain disorders involving the immune mechanism; E78.00 Pure hypercholesterolemia, unspecified; E11.65 Type 2 diabetes mellitus with hyperglycemia; Z79.4 Long term (current) use of insulin; R79.89 Other specified abnormal findings of blood chemistry; I25.10 Atherosclerotic heart disease of native coronary artery without angina pectoris
CPT/HCPCS: 36415; 80053; 80061; 81001; 82043; 82085; 82550; 82570; 82607; 82728; 82746; 83036; 83540; 83880; 84439; 84443; 85025; 85045; 85610; 85652; 86140; 86704; 86706; 86803; 87086; 87340; 87389

== ENCOUNTER 2025-03-12 07:34 | Outpatient (AMB) | payer OTHER, SELFPAY ==
--- NOTE | 2025-03-12 07:36 | MHC.OFFVIS ---
Vital Signs 03/12/25 07:43 Height 5 ft 4 in Weight 123 lb 3.814 oz BMI 21.2 BP 164/90 H Blood Pressure Location Lt brachial Position Sitting Pulse 70 Pulse Source Pulse Oximeter Pulse Oximetry (%) 99 Oxygen Delivery Method Room Air Intake Visit Reasons: follow up Intake Note: Patient presents today for Dermatomyositis follow up. Binder And Box Builder Required: Yes Binder And Box Builder Services: Binder And Box Builder Present Binder And Box Builder Name: Ricco [id number] Information Interpreted: non-clinical & clinical Allergies penicillin V Allergy (Unknown, Verified 03/12/25 07:41) hives Penicillins [PENICILLINS] Allergy (Unknown, Verified 03/12/25 07:41) RASH,DIZZINESS Medication List - Last Reconciled 03/12/25 by Dinora Sheth MD alprazolam 0.25 mg PO DAILY PRN aspirin (Adult Low Dose Aspirin) 81 mg PO DAILY blood glucose control high,low (FreeStyle Control solution) As directed [blood pessure cuff As directed] blood sugar diagnostic (FreeStyle Lite Strips) 3 times a day blood-glucose meter (FreeStyle Lite Meter kit) As directed TID cane As directed cholecalciferol (vitamin D3) 50 mcg PO DAILY dapagliflozin propanediol (Farxiga) 10 mg PO DAILY ferrous sulfate 325 mg PO BID fluoxetine 10 mg PO DAILY insulin glargine (Lantus Solostar U-100 Insulin) 15 units (0.15 mL) subcut DAILY 30 days isosorbide mononitrate ER 30 mg PO DAILY lancets (TRUEplus Lancets) As directed check BS TID lancets (FreeStyle Lancets) As directed three times a day levothyroxine 150 mcg PO DAILY@0600 losartan 25 mg PO DAILY melatonin 10 mg PO BEDTIME PRN metformin 1,000 mg PO BID metoprolol succinate ER 50 mg PO DAILY nitrofurantoin monohyd/m-cryst 100 mg (Macrobid) 100 mg PO Q12H 7 days pen needle, diabetic (BD Corin 2nd Gen Pen Needle) once a day pen needle, diabetic (BD Ultra-Fine Corin Pen Needle) As directed once daily pen needle, diabetic (BD Ultra-Fine Corin Pen Needle) As directed polyethylene glycol 3350 (Miralax) 17 grams PO BID prednisone Take 3 tablets daily for 7 days until 02/25/25 THEN take 2 tablets daily for 15 days until 03/12/25 sodium,potassium,mag sulfates 17.5-3.13-1.6 gram (Suprep Bowel Prep Kit) DILUTE; drink 1/2 at 6-8 pm and half at 11 PM- 1AM ticagrelor (Brilinta) 90 mg PO BID HPI Comments Details: Patient is a 63-year-old female with hypothyroidism, hypertension complicated by CAD status post stenting (10/2024 ) and 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 here today for follow up of polymyositis/dermatomyositis Interval History: Patient last seen 02/18/2025 with me. At that time she was following up for her polymyositis/dermatomyositis. She was recently hospitalized at [facility] prior [place] [id number]. Muscle biopsy done. 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 She was started on IVIG and prednisolone taper Today she reports continued improvement in her weakness Rheumatologic History: Dermatomyositis versus polymyositis versus immune mediated necrotizing myositis ++CK++Aldolase +Mi2 ++HMGCR Ab Initial history: Patient recently discharged from [facility] (discharge date 11/25/2024) after presenting with chest pain found to have STEMI and had stenting of the LAD. During the hospitalization she was noted to have elevated LFTs and was asked to follow up about this as an outpatient. She followed up with her primary care 12/02/2024. ?Labs were sent and it was noted that she had elevated CK greater than 8000 which on repeat increase to 10,000. Transaminases were elevated as well.? She was admitted to [facility] 12/03/24 with rhabdomyolysis and started on IV fluids.? Despite IV fluids her CK plateaued at around 5000.? She was previously on a statin but this was stopped prior to her 10/2024 hospitalization but this was stopped. Has been having muscle pain/bone pain for about 1 year. Feels that she is very weak and not able to walk or raise her arm above her head. No rashes Fingers do change color in the cold Current Rheumatology Medication(s): Prednisone 30mg PO PFSH Medical History Dermatomyositis Elevated CK CAD (coronary artery disease) STEMI (ST elevation myocardial infarction) GERD (gastroesophageal reflux disease) Physical exam, pre-employment Sebaceous cyst RUQ pain Cervical polyp Muscle strain of right scapular region H. pylori infection Overweight (BMI 25.0-29.9) Hypertension Hypothyroidism jail (current) use of insulin Diabetes type 2, uncontrolled Surgical History Hx of knee surgery History of coronary artery stent placement Hx of tubal ligation Hx of cholecystectomy Family History Unknown No problems noted. 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 Cognitive needs: No Hearing needs: No Vision needs: No Female Reproductive History Menstrual Age of Menarche: 12 Review of Systems Const Details: Review of Systems Constitutional: Denies fever, chills, weight loss ENT: Denies vision changes, eye pain or eye redness, dental caries, dry mouth GI: Denies nausea, vomiting, diarrhea, abdominal pain, change in BM Pulm: Denies SOB, TORRES, hemoptysis, wheezing Cards: Denies chest pain, palpitations Skin: Denies Raynaud's, rash, nail changes, photosensitivity, RECYCLING PROGRAM MANAGER: Denies headaches, paresthesias, recurrent falls MSK: as per HPI All other systems reviewed and are unremarkable except noted above Physical Exam Vital Signs: Last Vital Signs Pulse 70 03/12/25 07:43 BP 164/90 H 03/12/25 07:43 Pulse Ox 99 03/12/25 07:43 Oxygen Delivery Method Room Air 03/12/25 07:43 BMI result Body Mass Index 21.2 Vital signs reviewed Physical Examination CONSTITUITIONAL Patient alert and cooperative. Well appearing and in no apparent painful distress HEENT Conjunctiva and sclera clear. ?Pupils equal round and reactive to light. ?No lymphadenopathy. ? CHEST/RESPIRATORY SYSTEM Normal respiratory effort and able to speak in complete sentences. ?Clear to auscultation bilaterally. ?No crackles, rales, rhonchi, wheezes heard. CARDIAC SYSTEM Regular rate and rhythm. ?S1 and S2 heard no murmurs. ?Radial pulses intact bilaterally MSK Hands: ?Good oracle technical developer strength bilaterally. No deformities noted. ?No synovitis noted to the MCPs, PIPs or DIPs. ?No tenderness to palpation of these joints. Wrists: ?Full range of motion at the wrists without pain. ?No tenderness to palpation or synovitis noted to the wrists. Elbows: Full range of motion without pain. No tenderness, weakness, swelling, increased warmth or erythema. Shoulders: Full range of motion without pain. No tenderness, weakness, swelling, increased warmth or erythema. Hips: Full range of motion without pain. Hip bursa: No tenderness to palpation Knees: ?Full range of motion. ?No tenderness, swelling, increased warmth or erythema.?No effusion or crepitations Ankles: Full range of motion. ?No tenderness, swelling, increased warmth or erythema.? Feet: ?Negative squeeze test. ?No tenderness to palpation or swelling of the MTPs. Tender points:?No tenderness to palpation of the bilateral trapezius, supraspinatus, greater trochanters, anterior costochondral junctions, bilateral gluteal areas, bilateral suboccipital muscle insertions SKIN Skin intact without rashes. Livedeo reticularis No gottrons sign, holster sign, shawl sign normal capillary nailfolds neck flexion 4 oracle technical developer strength 5 5 wrist flexion 5 5 wrist extension 5 5 elbow flexion 4 4 elbow extension 3+ 3+ shoulder abduction 3+ 3+ shoulder adduction 4 4 hip flexion 4 4 knee extension 5 5 knee flexion 5 5 ankle dorsiflexion 5 5 ankle plantarflexion 5 5 Results Reviewed Results Reviewed: Laboratory Tests 02/18/25 03/07/25 12:32 09:11 WBC 7.8 RBC 4.46 Hgb 11.7 L Hct 36.9 L Plt Count 455 H ESR 23 H Sodium 142 Potassium 3.8 Chloride 106 Carbon Dioxide 28 BUN 17 H Creatinine 0.62 Calcium 9.5 AST 144 H 47 H ALT 494 H 177 H Total Creatine Kinase 4638 H 740 H Aldolase 84.1 H Pending TSH 10.48 H Free T4 1.11 Immunology labs 10/28/24 12/02/24 12/11/24 11:02 11:13 12:45 KENNY Screen POSITIVE A KENNY Titer 1:40 H KENNY Pattern Nuclear, Speckled A Proteinase 3 (PR3) Ab <1.0 Myeloperoxidase Ab <1.0 KELSEY-1 Antibody <11 EJ Antibody <11 OJ Antibody <11 Mi-2-Alpha Ab <11 Mi-2-Beta Ab 26 H NXP-2 Ab <11 PL-7 Antibody <11 PL-12 Antibody <11 SRP Ab <11 MDA5 Ab <11 Myos P155/140 TIF1-g Ab <11 HMGCR IgG Antibody 224 H NT5C1A IgG Antibody 6 Anti-Smooth Muscle Ab <20 Tiss Transglutamin IgG <1.0 Tiss Transglutamin IgA <1.0 Rae/Kid Microsom Ab Int <=20.0 Immunoglobulins 02/18/25 12:32 IgG Total 1053 IgA Total 298 IgM 62 Laboratory Tests 03/07/25 09:03 Urine Color Yellow Urine Blood Negative Urine RBC 0-2 Microalb/Creat Ratio 55.9 H Assessment & Plan Assessment & Plan (1) Dermatomyositis: Code(s): M33.13 - Other dermatomyositis without myopathy Category: Medical Plan: #Dermatomyositis/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 Based on the antibody profile she is mi 2 positive and HMGCR antibody positive. Discussed with the pathologist that she has features of both dermatomyositis and immune mediated necrotizing myopathy. We will continue with IVIG and her prednisone taper. Awaiting the full pathology report. Plan - IVIG 2g/kg monthly - Prednisone 30mg x 2 weeks then 20mg until follow up - RTC 04/14/2025 - Labs before visit: CBC, CMP, ESR, CRP, CK (2) Long-term current use of intravenous immunoglobulin (IVIG): Code(s): Z79.899 - Other salvage determiner (current) drug therapy Plan: #Long-term use of IVIG Discussed with this patient the risks and benefits of IVIG use to the management of the rheumatic condition Benefits include improved disease control and maintenance of remission Risks include anaphylaxis, blood clots, transfusion related acute lung injury, hemolytic reaction, fluid overload, heart problems Plan I spent 32 minutes reviewing the record and labs, taking a history, examining the patient, discussing the treatment plan, ordering diagnostic work up, and documenting in the medical record Orders: Orders Complete Blood Count Auto Diff 2 Months - Other dermatomyositis without myopathy Comprehensive Met. Panel 2 Months . - Other dermatomyositis without myopathy Aldolase 2 Months . - Other dermatomyositis without myopathy Erythrocyte Sedimentation Rate 2 Months . - Other dermatomyositis without myopathy Creatine Kinase Total 2 Months . - Other dermatomyositis without myopathy C Reactive Protein 2 Months . - Other dermatomyositis without myopathy Coding Level of Care Code Est Pt Level 4 (07835) Complex EM visit Add On G2211 Diagnoses Dermatomyositis Long-term current use of intravenous immunoglobulin (IVIG) Z79.899
--- OUTSIDE RECORDS SUMMARY | 2025-03-12 07:37 | XMS_ITS | Encounter Summary ---
Author Organization [employer] Address [address] [facility] [address] [facility] [address] [address] [place] [address] Care Team Providers Care Supervisor Plasma Name Role Phone Unavailable Primary Care Provider Unavailabl e Reason for Visit * Reason Comments Med Refill Encounter Details Date Type Department Care Team (Late st Contact Info) Description 01/16/2025 Refill [facility] MEDICINE [address] [place] [address] Kimberley Cunningham FNP [address] [place] [address] Type 2 diabetes mellitus with hyperglycemia (CMS/HCC) [...]
--- OUTSIDE RECORDS SUMMARY | 2025-03-12 07:37 | XMS_ITS | Encounter Summary ---
Author Organization [employer] Address [address] [place] [address] Care Team Providers Care Outside Cutter Hand Name Role Phone Unavailable Primary Care Provider Unavailabl e Reason for Visit * Reason Comments Med Refill Encounter Details Date Type Department Care Team (Late st Contact Info) Description 05/20/2024 Refill [facility] MEDICINE [address] [place] [address] Kimberley Cunningham FNP [address] [place] [address] Primary hypertension Social History Tobacco Use Types [...] t he electric, gas, oil or water [employer] threatened to shut off services in your [...]
--- OUTSIDE RECORDS SUMMARY | 2025-03-12 07:37 | XMS_ITS | Encounter Summary ---
Author Organization [employer] Address [address] [facility] [address]t [place] [address] Care Team Providers Care Director Of Promotions Name Role Phone Unavailable Primary Care Provider Unavailabl e Reason for Visit * Reason Comments Med Refill Encounter Details Date Type Department Care Team (Late st Contact Info) Description 01/12/2025 Refill [facility] MED[facility] [address] [place] [address] Kimberley Cunningham FNP [address] [place] [address] Type 2 diabetes mellitus with hyperglycemia (CMS/HCC) [...]
--- OUTSIDE RECORDS SUMMARY | 2025-03-12 07:37 | XMS_ITS | Encounter Summary ---
Author Organization [employer] Address [address] [facility] [address] [facility] [address] [place] [address] Care Team Providers Care Head Bellhop Captain Name Role Phone Unavailable Primary Care Provider Unavailabl e Reason for Visit * Reason Comments Med Refill Encounter Details Date Type Department Care Team ([facility] st Contact Info) Description 09/10/2024 Refill [facility] [address] [place], [place] [phone] Kimberley Cunningham, EILEEN [address] [place], [place] [phone] Depressive disorder Social History Tobacco Use Types [...] t he electric, gas, oil or water [employer] threatened to shut off services in your [...]
--- OUTSIDE RECORDS SUMMARY | 2025-03-12 07:37 | XMS_ITS | Encounter Summary ---
Author Organization [employer] Address [address] [facility] [facility] [address] [place] [address] Care Team Providers Care Communications Department Chair Name Role Phone Unavailable Primary Care Provider Unavailabl e Reason for Visit * Reason Comments Med Refill Encounter Details Date Type Department Care Team (Late st Contact Info) Description 05/21/2024 Refill [facility] MEDICINE [address] [place] [address] Kimberley Cunningham FNP [address] [place] [address] Primary hypertension Social History Tobacco Use Types [...] t he electric, gas, oil or water [employer] threatened to shut off services in your [...]
--- OUTSIDE RECORDS SUMMARY | 2025-03-12 07:37 | XMS_ITS | Encounter Summary ---
Author Organization [facility] Address [address] [facility] 7t [place] [address] Care Team Providers Care Cnc Set Up Operator Name Role Phone Kimberley Cunningham Primary Care Provider [phone] Encounter Details Date Type Department Care Team (Latest Contact Info) Description 01/07/2020 Abstract [facility] CONVERSIONS Dental, Provider, DDS Social [...] on filedocumented in this encounter Care Teams Cnc Set Up Operator Relationship Specialty Start Date End Date Kimberley Cunningham FNP [address] [place] [address] PCP - General Family Medicine 07/23/22 03/20/24 documented as of this encounter
--- OUTSIDE RECORDS SUMMARY | 2025-03-12 07:37 | XMS_ITS | Encounter Summary ---
Author Organization [employer] Address [address] [place] [address] Care Team Providers Care Maritime Officer Name Role Phone Unavailable Primary Care Provider Unavailabl e Reason for Visit * Reason Comments Med Refill Encounter Details Date Type Department Care Team ([facility] st Contact Info) Description 11/13/2024 Refill [facility] MEDICINE [address] [place] [address] Kimberley Cunningham FNP [address] [place] [address] Type 2 diabetes mellitus without complication, with long-term current use of insulin ([facility]) Social History Tobacco Use Types Packs/Day Years [...] complication, with long-term current use of insulin ([facility]) documented in this encounter Additional Health Concerns Assessment Noted Time PHQ-9 Depression Total Score: 2 01/09/20 23 9:19 AM EST documented as of this encounter
--- OUTSIDE RECORDS SUMMARY | 2025-03-12 07:37 | XMS_ITS | Clinical Summary ---
Author Organization [employer] Address 75 [facility] 7t [place] [address] Care Team Providers Care Municipal Firefighter Name Role Phone Unavailable Primary Care Provider [...] e 2 diabetes mellitus treated with insulin ([facility]) INJECT 8 UNITS SUBCUTANEOUSLY ONCE DAILY IN THE EVENING 15 mL 3 11/01/20 23 Active linaGLIPtin (Tradjenta) 5 MG tabletIndications: Type 2 diabetes mellitus without complication, with long-term current use of insulin ([facility]) TAKE 1 [...] 10 MGIndications:Type 2 diabetes mellitus with hyperglycemia ([facility]) TAKE 1 [...] complication, with long-term current use of insulin ([facility]) TAKE 1 TABLET BY MOUTH TWICE DAILY AT NOON AND IN THE EVENING 180 tablet 1 03/20/20 24 Active lisinopril 20 MG tabletIndications: Primary hypertension TAKE 1 TABLET BY MOUTH AT BEDTIME 90 tablet 2 05/22/20 24 Active FREESTYLE LITE test stripIndications:T ype 2 diabetes mellitus with hyperglycemia ([facility]/HCC) TEST BLOOD SUGAR 3 TIMES A [...] -Pt in the process of re-establishing with [facility] Endo -Per last available consult [...] Type Department Care Team Description 01/16/2025 Refill [facility] MEDICINE [address] [place] [address] Kimberley Cunningham FNP Type 2 diabetes mellitus with hyperglycemia ([facility]/HCC) 01/12/2025 Refill [facility] MEDICINE [address] [place], [place] [phone] Kimberley Cunningham FNP Type 2 diabetes mellitus with hyperglycemia ([facility]) from Last [...] complication, with long-term current use of insulin ([facility]) MAMMOGRAM GENERIC [...] Legacy Procedure: Mammography Report 1 Kimberley Cunningham TURN LASTER IMG BI PROCEDURES Final Result * LIPID [...] ?? Jesús ROBERTS et al. KORTNEY. 2013;310(19): 0397-4491 ?? (http://education.Diligent Board Member Services/faq/SPZ448) Non-HDL Cholesterol 87 <130 mg/dL (calc) CONVERTED [facility]GACY LABS Comment: For patients with diabetes plus 1 major ASCVD risk ?? factor, treating to a non-HDL-C goal of <100 mg/dL ?? (LDL-C of <70 mg/dL) is considered a therapeutic ?? option. Triglycerides 91 <150 mg/dL CONVE RTED LEGACY LABS 10/04/2022 8:50 AM EST Kimberley Cunningham [facility] LAB BLOOD ORDERABLES Final Res ult [...] ORDERABLE LABS Final Result Performing Organization Address City/[facility]/ZIP Co de Phone Number [facility] [address] * Pap Smear (03/14/2019) Pap Negative [...] Most Recently Relevant to Health Maintenance Insurance [facility] [place] STAND ADULT
--- OUTSIDE RECORDS SUMMARY | 2025-03-12 07:37 | XMS_ITS | Encounter Summary ---
Author Organization [employer] Address [address] [facility] [address] 7t [place] [address] Care Team Providers Care Furnace Reliner Name Role Phone Unavailable Primary Care Provider Unavailabl e Reason for Visit * Reason Comments Med Refill Encounter Details Date Type Department Care Team (Late st Contact Info) Description 08/12/2024 Refill [facility] MEDICINE [address] [place] [address] Kimberley Cunningham FNP [address] [place] [address] Vitamin D insufficiency Social History Tobacco Use [...] the past 12 months, has t he [employer], gas, oil or water company threatened to [...]
--- OUTSIDE RECORDS SUMMARY | 2025-03-12 07:37 | XMS_ITS | Encounter Summary ---
Author Organization [employer] Address 75 [facility] 7t [place] [address] Care Team Providers Care Coordinator Of Online Programs Name Role Phone Kimberley Cunningham CHAIR Primary Care Provider [phone] Reason for Visit * Reason Comments Med Refill Encounter Details Date Type Department Care Team ([facility] st Contact Info) Description 09/08/[address] [facility] MEDICINE [address] [place], [place] [phone] Jojo Washburn MD [address] [place], [place] [phone] Depressive disorder Social History Tobacco Use Types [...] documented as of this encounter Care Teams Coordinator Of Online Programs Relationship Specialty Start Date End Date Kimberley Cunningham FNP [address] [place] [address] PCP - General Family Medicine 07/23/22 03/20/24 documented as of this encounter
--- OUTSIDE RECORDS SUMMARY | 2025-03-12 07:37 | XMS_ITS | Encounter Summary ---
Author Organization [facility] Address [address] [place] [address] Phone Care Team Providers Care Pourer Crane Ladle Name Role Phone Zaria Milan MD Primary Care Provider Encounter Details Date Type Department Care Team (Late st Contact Info) Description 03/11/2025 Telephone [facility] [address] [place] [address] Siomara Howell [address] [place] [address] Social History Tobacco Use Types Packs/Day Years Used Date Smoking Tobacco: Never Assessed Comments Unknown Sex and Gender Information Value Date Recorded Sex Assigned at Not on file Legal Sex Female 10:03 AM EDT Gender Identity Not on file Sexual Orientation Not on file documented as of this encounter Miscellaneous Notes * Telephone Encounter - Siomara Howell - 03/11/2025 3:32 PM EDT Called pt to schedule hospital f/u in [address] Dane Prince voicemail documented in this encounter Plan of Treatment Not on file documented as of this encounter Visit Diagnoses Not on filedocumented in this encounter Care Teams Pourer Crane Ladle Relationship Specialty Start Date End Date Zaria Milan MD [address] [place], [place] PCP - General Internal Medicine 02/16/25 documented as of this encounter
--- OUTSIDE RECORDS SUMMARY | 2025-03-12 07:37 | XMS_ITS | Encounter Summary ---
Author Organization [employer] Address [address] [facility] [address] 7t [place] [address] Care Team Providers Care Oil And Gas Principal Name Role Phone Kimberley Cunningham RECYCLING DIRECTOR Primary Care Provider [phone] Encounter Details Date Type Department Care Team (Late st Contact Info) Description 10/12/2023 Abstract [facility] MEDICINE [address] [place], [place] [phone] Sandra Villareal Social History Tobacco Use Types [...] documented as of this encounter Care Teams Oil And Gas Principal Relationship Specialty Start Date End Date Kimberley Cunningham FNP [address] [place] [address] PCP - General Family Medicine 07/23/22 03/20/24 documented as of this encounter
--- OUTSIDE RECORDS SUMMARY | 2025-03-12 07:37 | XMS_ITS | Encounter Summary ---
Author Organization [employer] Address 75 [facility] 7t [place] [address] Care Team Providers Care Polisher Sand Name Role Phone Unavailable Primary Care Provider Unavailabl e Reason for Visit * Reason Comments Med Refill Encounter Details Date Type Department Care Team ([facility] st Contact Info) Description 10/13/2024 Refill [facility] MED & PEDS [address] [place], [place] [phone] Kimberley Cunningham, EILEEN [address] [place] [address] Type 2 diabetes mellitus without complication, with long-term current use of insulin ([facility]) Social History Tobacco Use [...] with long-term current use of insulin ([facility]) documented in this encounter Additional Health Concerns Assessment Noted Time PHQ-9 Depression Total Score: 2 01/09/20 23 9:19 AM EST documented as of this encounter
--- OUTSIDE RECORDS SUMMARY | 2025-03-12 07:37 | XMS_ITS | Encounter Summary ---
Author Organization [facility] Address 75 [facility] 7t [place] [address] Care Team Providers Care Sr. Payroll Processor Name Role Phone Kimberley Cunningham Primary Care Provider [phone] Encounter Details Date Type Department Care Team (Latest Contact Info) Description 01/20/2021 Abstract [facility] CONVERSIONS Dental, Provider, DDS Social History [...] on filedocumented in this encounter Care Teams Sr. Payroll Processor Relationship Specialty Start Date End Date Kimberley Cunningham FNP [address] [place] [address] PCP - General Family Medicine 07/23/22 03/20/24 documented as of this encounter
--- OUTSIDE RECORDS SUMMARY | 2025-03-12 07:37 | XMS_ITS | Clinical Summary ---
Author Organization [facility] Address [address] [facility] [address] [place] [address] [place] [address] Care Team Providers Care Tour Conductor Name Role Phone Zaria Milan MD Primary Care Provider [phone] Encounters Date Type Department Care Team Description 03/11/2025 Telephone [facility] [address] [place] [address] Siomara Howell from Last 3 Months Social History Tobacco Use Types Packs/Day Years Used Date Smoking Tobacco: Never Assessed Comments Unknown Sex and Gender Information Value Date Recorded Sex Assigned at Not on file Legal Sex Female 10:03 AM EDT Gender Identity Not on file Sexual Orientation Not on file Plan of Treatment Health Maintenance Due Date Last Done Comments Breast Cancer Screening 1962 Pneumococcal Vaccine: 50+ Years (2 of 2 - PCV) 11/03/2004 11/03/2003, 11/03/2003 Colorectal Cancer Screening: Annual FOBT 2011 Colorectal Cancer Screening: Colonoscopy 2011 Colorectal Cancer Screening: Sigmoidoscopy 2011 Diabetes: Hemoglobin A1C 02/16/2025 01/30/2024 Diabetes: Ophthalmology Exam 02/16/2025 Diabetes: Pedal Pulse Checked 02/16/2025 Diabetes: Sensory Foot Exam 02/16/2025 Diabetes: Visual Foot Exam 02/16/2025 Influenza Vaccine (Season Ended) 2025 Pneumococcal Vaccine: Peds ( 0 to 5 Years) and At-Risk Patients (6 to 49 Years) Discontinued 11/03/2003, 11/03/2003 Hepatitis B Vaccine Aged Out 03/29/2007, 11/12/2001, 05/31/2001 No longer eligible based on patient's age to complete this topic Insurance [facility] Medicaid Care Teams Tour Conductor Relationship Specialty Start Date End Date Zaria Milan MD [address] [place], [place] PCP - General Internal Medicine 02/16/25
--- OUTSIDE RECORDS SUMMARY | 2025-03-12 07:37 | XMS_ITS | Encounter Summary ---
Author Organization [employer] Address [address] [facility] [address] 7t [place] [address] Care Team Providers Care Makeup Editor Name Role Phone Unavailable Primary Care Provider Unavailabl e Reason for Visit * Reason Comments Med Refill Encounter Details Date Type Department Care Team (Late st Contact Info) Description 06/17/2024 Refill [facility] MEDICINE [address] [place] [address] Kimberley Cunningham FNP [address] [place] [address] Other hyperlipidemia; Type 2 diabetes mellitus with [...]
--- OUTSIDE RECORDS SUMMARY | 2025-03-12 07:37 | XMS_ITS | Encounter Summary ---
Author Organization [employer] Address 75 [facility] 7t [place] [address] Care Team Providers Care Rn Security Name Role Phone Kimberley Cunningham Primary Care Provider [phone] Reason for Visit * Reason Comments Med Refill Encounter Details Date Type Department Care Team ([facility] st Contact Info) Description 07/26/2023 Refill [facility] MEDICINE [address] [place] [address] Kimberley Cunningham FNP [address] [place] [address] Depressive disorder Social History Tobacco Use Types [...] documented as of this encounter Care Teams Rn Security Relationship Specialty Start Date End Date Kimberley Cunningham FNP [address] [place] [address] PCP - General Family Medicine 07/23/22 03/20/24 documented as of this encounter
--- OUTSIDE RECORDS SUMMARY | 2025-03-12 07:37 | XMS_ITS | Encounter Summary ---
Author Organization [employer] Address [address] [facility] [address] 7t [place] [address] Care Team Providers Care Human Resources Trainer Name Role Phone Unavailable Primary Care Provider Unavailabl e Reason for Visit * Reason Comments Med Refill Encounter Details Date Type Department Care Team ([facility] st Contact Info) Description 08/15/2024 Refill [facility] MED & PEDS [address] [place], [place] [phone] Kimberley Cunningham, PROFESSOR OF THEATRE [address] [place] [address] Hypothyroidism, unspecified type Social History Tobacco Use Types Packs/Day Years Used Date Smoking Tobacco: Never Smokeless Tobacco: Never Alcohol Use Standard Drinks/Week Comments Never 0 (1 standard drink = 0.6 oz pur e alcohol) Depression Answer Date Recorded Patient Health Questionnaire-9 Score 2 01/09/2023 Housing Stability Answer Date Recorded What is your housing situation today? I have franco castor 09/10/[address] you li [...]
[2025-03-12 07:43] VITALS: BP 164/90; PULSE 70; O2SAT 99; BMI 21.2
== END 2025-03-12 08:17 | disposition home or self-care (01) ==
LOC: HO.RHE 07:34
PROVIDERS: PCP Internal Medicine; Visit Provider Student in an Organized Health Care Education/Training Program
DX: M33.13 Other dermatomyositis without myopathy (principal); Z79.899 Other long term (current) drug therapy
CPT/HCPCS: 99214; G2211

== ENCOUNTER 2025-03-12 07:34 | Outpatient (REF) | payer OTHER, SELFPAY ==
--- OUTSIDE RECORDS SUMMARY | 2025-03-12 08:40 | XMS_ITS | Encounter Summary ---
Author Organization [employer] Address [address] [facility] [address]t [place] [address] Care Team Providers Care Forensic Science Technician Name Role Phone Unavailable Primary Care Provider Unavailabl e Reason for Visit * Reason Comments Med Refill Encounter Details Date Type Department Care Team (Late st Contact Info) Description 05/20/2024 Refill [facility] MEDICINE [address] [place] [address] Kimberley Cunningham FNP [address] [place] [address] Primary hypertension Social History Tobacco Use Types [...] t he electric, gas, oil or water [employer] threatened to shut off services in your [...]
--- OUTSIDE RECORDS SUMMARY | 2025-03-12 08:40 | XMS_ITS | Clinical Summary ---
Author Organization [employer] Address 75 [facility] 7t [place] [address] Care Team Providers Care Passenger Rate Clerk Name Role Phone Unavailable Primary Care [...] e 2 diabetes mellitus treated with insulin ([facility]) INJECT 8 UNITS SUBCUTANEOUSLY ONCE DAILY IN THE EVENING 15 mL 3 11/01/20 23 Active linaGLIPtin (Tradjenta) 5 MG tabletIndications: Type 2 diabetes mellitus without complication, with long-term current use of insulin ([facility]) TAKE 1 TABLET BY MOUTH EVERYDAY [...] 10 MGIndications:Type 2 diabetes mellitus with hyperglycemia ([facility]) TAKE 1 TABLET BY MOUTH EVERYDAY [...] complication, with long-term current use of insulin ([facility]) TAKE 1 TABLET BY MOUTH TWICE DAILY AT NOON AND IN THE EVENING 180 tablet 1 03/20/20 24 Active lisinopril 20 MG tabletIndications: Primary hypertension TAKE 1 TABLET BY MOUTH AT BEDTIME 90 tablet 2 05/22/20 24 Active FREESTYLE LITE test stripIndications:T ype 2 diabetes mellitus with hyperglycemia ([facility]/HCC) TEST BLOOD SUGAR 3 TIMES A DAY [...] -Pt in the process of re-establishing with [facility] Endo -Per last available consult note: -CONT [...] Type Department Care Team Description 01/16/2025 Refill [facility] MEDICINE [address] [place] [address] Kimberley Cunningham FNP Type 2 diabetes mellitus with hyperglycemia ([facility]/HCC) 01/12/2025 Refill [facility] MEDICINE [address] [place], [place] [phone] Kimberley Cunningham FNP Type 2 diabetes mellitus with hyperglycemia ([facility]) from Last 3 Months Immunizations Name [...] is your housing situation today? I have francobrcue castro 09/10/[address] you [...] complication, with long-term current use of insulin ([facility]) MAMMOGRAM GENERIC Routine 10/05/2022 10: 20 [...] Legacy Procedure: Mammography Report 1 Kimberley Cunningham CERTIFIED EXECUTIVE CHEF IMG BI PROCEDURES Final Result * LIPID [...] ?? Jesús ROBERTS et al. KORTNEY. 2013;310(19): 1479-8010 ?? (http://education.[employer]/faq/NRV245) Non-HDL Cholesterol 87 <130 mg/dL (calc) CONVERTED LEGACY LABS Comment: For patients with diabetes plus 1 major ASCVD risk ?? factor, treating to a non-HDL-C goal of <100 mg/dL ?? (LDL-C of <70 mg/dL) is considered a therapeutic ?? option. Triglycerides 91 <150 mg/dL CONVE RTED LEGACY LABS 10/04/2022 8:50 AM EST Kimberley Cunningham [facility] LAB BLOOD ORDERABLES Final Res ult CONVERTED LEGACY LABS * MICROALBUMIN, RANDOM (07/13/2021 10:40 AM EDT) Creatinine Urine 30.03 mg/dL [facility] Microalbum/Creati nine Ratio Ur TNP ug/mg cr [facility] Comment: Unable to calculate albumin/creatinine ratio due to low microalbumin or creatinine result. Microalbumin Urine <5.0 mg/L [facility] 07/13/2021 10:4 0 AM EDT Historical Provider HISTORICAL/NON ORDERABLE LABS Final Result Performing Organization Address City/[facility]/ZIP Co de Phone Number [facility] [address] * Pap Smear (03/14/2019) Pap Negative [...] Most Recently Relevant to Health Maintenance Insurance [facility] STAND ADULT
--- OUTSIDE RECORDS SUMMARY | 2025-03-12 08:40 | XMS_ITS | Encounter Summary ---
Author Organization [employer] Address [address] [facility] [address] 7t [place] [address] Care Team Providers Care Assembly Inspector Helper Name Role Phone Unavailable Primary Care Provider Unavailabl e Reason for Visit * Reason Comments Med Refill Encounter Details Date Type Department Care Team (Late st Contact Info) Description 08/12/2024 Refill [facility] MEDICINE [address] [place] [address] Kimberley Cunningham FNP [address] [place] [address] Vitamin D insufficiency Social History Tobacco Use [...] the past 12 months, has t he [employer], gas, oil or water company threatened to [...]
--- OUTSIDE RECORDS SUMMARY | 2025-03-12 08:40 | XMS_ITS | Encounter Summary ---
Author Organization [facility] Address [address] [facility] 7t [place] [address] Care Team Providers Care University Teacher Name Role Phone Kimberley Cunningham Primary Care Provider [phone] Encounter Details Date Type Department Care Team (Latest Contact Info) Description 01/20/2021 Abstract [facility] CONVERSIONS Dental, Provider, DDS Social History Tobacco [...] on filedocumented in this encounter Care Teams University Teacher Relationship Specialty Start Date End Date Kimberley Cunningham FNP [address] [place] [address] PCP - General Family Medicine 07/23/22 03/20/24 documented as of this encounter
--- OUTSIDE RECORDS SUMMARY | 2025-03-12 08:40 | XMS_ITS | Encounter Summary ---
Author Organization [employer] Address [address] [place] [address] Care Team Providers Care Chemical Technician Name Role Phone Unavailable Primary Care Provider Unavailabl e Reason for Visit * Reason Comments Med Refill Encounter Details Date Type Department Care Team ([facility] st Contact Info) Description 08/15/2024 Refill [facility] MED & PEDS [address] [place], [place] [phone] Kimberley Cunningham, ROLL PRESS OPERATOR [address] [place] [address] Hypothyroidism, unspecified type Social History Tobacco Use [...]
--- OUTSIDE RECORDS SUMMARY | 2025-03-12 08:40 | XMS_ITS | Encounter Summary ---
Author Organization [employer] Address [address] [facility] [address] 7t [place] [address] Care Team Providers Care Chorus Master Name Role Phone Unavailable Primary Care Provider Unavailabl e Reason for Visit * Reason Comments Med Refill Encounter Details Date Type Department Care Team ([facility] st Contact Info) Description 09/10/[address] [facility] MED & PEDS [address] [place], [place] [phone] Kimberley Cunningham, EILEEN [address] [place], [place] [phone] Depressive disorder Social History Tobacco Use Types [...] t he electric, gas, oil or water [employer] threatened to shut off services in your [...]
--- OUTSIDE RECORDS SUMMARY | 2025-03-12 08:40 | XMS_ITS | Encounter Summary ---
Author Organization [employer] Address [address] [facility] [address] 7t [place] [address] Care Team Providers Care Reconsignment Clerk Name Role Phone Unavailable Primary Care Provider Unavailabl e Reason for Visit * Reason Comments Med Refill Encounter Details Date Type Department Care Team (Late st Contact Info) Description 01/16/2025 Refill [facility] MEDICINE [address] [place] [address] Kimberley Cunningham FNP [address] [place] [address] Type 2 diabetes mellitus with hyperglycemia (CMS/HCC) [...]
--- OUTSIDE RECORDS SUMMARY | 2025-03-12 08:40 | XMS_ITS | Encounter Summary ---
Author Organization [employer] Address [address] [facility] [address] 7t [place] [address] Care Team Providers Care Steamer Blocker Name Role Phone Unavailable Primary Care Provider Unavailabl e Reason for Visit * Reason Comments Med Refill Encounter Details Date Type Department Care Team ([facility] st Contact Info) Description 11/13/2024 Refill [facility] MEDICINE [address] [place] [address] Kimberley Cunningham FNP [address] [place] [address] Type 2 diabetes mellitus without complication, with long-term current use of insulin ([facility] Social History Tobacco Use Types [...] complication, with long-term current use of insulin ([facility]) documented in this encounter Additional Health Concerns Assessment Noted Time PHQ-9 Depression Total Score: 2 01/09/20 23 9:19 AM EST documented as of this encounter
--- OUTSIDE RECORDS SUMMARY | 2025-03-12 08:40 | XMS_ITS | Encounter Summary ---
Author Organization [employer] Address [address] [facility] [address] [place] [address] Care Team Providers Care Supervisor Wet Room Name Role Phone Unavailable Primary Care Provider Unavailabl e Reason for Visit * Reason Comments Med Refill Encounter Details Date Type Department Care Team (Late st Contact Info) Description 06/17/2024 Refill [facility] MEDICINE [address] [place] [address] Kimberley Cunningham FNP [address] [place] [address] Other hyperlipidemia; Type 2 diabetes mellitus with [...]
--- OUTSIDE RECORDS SUMMARY | 2025-03-12 08:40 | XMS_ITS | Encounter Summary ---
Author Organization [employer] Address [address] [facility] 7t [place] [address] Care Team Providers Care Ceramic Tile Setter Name Role Phone Unavailable Primary Care Provider Unavailabl e Reason for Visit * Reason Comments Med Refill Encounter Details Date Type Department Care Team ([facility] st Contact Info) Description 10/13/2024 Refill [facility] MED & PEDS [address] [place], [place] [phone] Kimberley Cunningham, EILEEN [address] [place] [address] Type 2 diabetes mellitus without complication, with long-term current use of insulin ([facility]) Social History Tobacco Use Types Packs/Day [...] long-term current use of insulin ([facility]) documented in this encounter Additional Health Concerns Assessment Noted Time PHQ-9 Depression Total Score: 2 01/09/20 23 9:19 AM EST documented as of this encounter
--- OUTSIDE RECORDS SUMMARY | 2025-03-12 08:40 | XMS_ITS | Encounter Summary ---
Author Organization [facility] Address [address] [place] [address] Phone Care Team Providers Care Traveler Changer Name Role Phone Zaria Milan MD Primary Care Provider [phone] Encounter Details Date Type Department Care Team (Late st Contact Info) Description 03/11/2025 Telephone [facility] [address] [place] [address] Siomara Howell [address] [place] [address] Social History Tobacco Use Types [...] on filedocumented in this encounter Care Teams Traveler Changer Relationship Specialty Start Date End Date Zaria Milan MD [address] [place], [place] PCP - General Internal Medicine 02/16/25 documented as of this encounter
--- OUTSIDE RECORDS SUMMARY | 2025-03-12 08:40 | XMS_ITS | Encounter Summary ---
Author Organization [employer] Address [address] [facility] [address] 7t [place] [address] Care Team Providers Care Air Pumper Name Role Phone Unavailable Primary Care Provider Unavailabl e Reason for Visit * Reason Comments Med Refill Encounter Details Date Type Department Care Team (Late st Contact Info) Description 01/12/2025 Refill [facility] MEDICINE [address] [place] [address] Kimberley Cunningham FNP [address] [place] [address] Type 2 diabetes mellitus with hyperglycemia (CMS/HCC) [...]
--- OUTSIDE RECORDS SUMMARY | 2025-03-12 08:40 | XMS_ITS | Encounter Summary ---
Author Organization [employer] Address [address] [facility] [address] 7t [place] [address] Care Team Providers Care Student Advisor Name Role Phone Unavailable Primary Care Provider Unavailabl e Reason for Visit * Reason Comments Med Refill Encounter Details Date Type Department Care Team (Late st Contact Info) Description 05/21/2024 Refill [facility] MEDICINE [address] [place] [address] Kimberley Cunningham FNP [address] [place] [address] Primary hypertension Social History Tobacco Use Types Packs/Day Years Used Date Smoking Tobacco: Never Smokeless Tobacco: Never Alcohol Use Standard Drinks/Week Comments Never 0 (1 standard drink = 0.6 oz pur e alcohol) Depression Answer Date Recorded Patient Health Questionnaire-9 Score 2 01/09/2023 Housing Stability Answer Date Recorded What is your housing situation today? I have franco csatro 09/10/[address] you li [...] t he electric, gas, oil or water [employer] threatened to shut off services in your [...]
--- OUTSIDE RECORDS SUMMARY | 2025-03-12 08:40 | XMS_ITS | Clinical Summary ---
Author Organization [facility] Address [address] [facility] [address] [place] [address] [place] [address] Care Team Providers Care Custom Framing Specialist Name Role Phone Zaria Milan MD Primary Care Provider [phone] Encounters Date Type Department Care Team Description 03/11/2025 Telephone [facility] [address] [place] [address] Siomara Howell from Last 3 [...] patient's age to complete this topic Insurance [facility] Medicaid Care Teams Custom Framing Specialist Relationship Specialty Start Date End Date Zaria Milan MD [address] [facility] [facility] [address] [place], [place] PCP - General Internal Medicine 02/16/25
--- OUTSIDE RECORDS SUMMARY | 2025-03-12 08:41 | XMS_ITS | Encounter Summary ---
Author Organization [employer] Address [address] [facility] 7t [place] [address] Care Team Providers Care Interactive Graphic Designer Name Role Phone Kimberley Cunningham DIRECTOR EMERGENCY SERVICES Primary Care Provider [phone] Reason for Visit * Reason Comments Med Refill Encounter Details Date Type Department Care Team ([facility] st Contact Info) Description 09/08/2023 Refill [facility] MEDICINE [address] [place], [place] [phone] Jojo Washburn MD [address] [place], [place] [phone] Depressive disorder Social History Tobacco Use Types [...] documented as of this encounter Care Teams Interactive Graphic Designer Relationship Specialty Start Date End Date Kimberley Cunningham FNP [address] [place] [address] PCP - General Family Medicine 07/23/22 03/20/24 documented as of this encounter
--- OUTSIDE RECORDS SUMMARY | 2025-03-12 08:41 | XMS_ITS | Encounter Summary ---
Author Organization [employer] [facility] Address [address] [facility] 7t [place] [address] Care Team Providers Care Plush Dresser Name Role Phone Kimberley Cunningham Primary Care Provider [phone] Encounter Details Date Type Department Care Team (Latest Contact Info) Description 01/07/2020 Abstract [facility] CONVERSIONS Dental, Provider, DDS Social [...] on filedocumented in this encounter Care Teams Plush Dresser Relationship Specialty Start Date End Date Kimberley Cunningham FNP [address] [place] [address] PCP - General Family Medicine 07/23/22 03/20/24 documented as of this encounter
--- OUTSIDE RECORDS SUMMARY | 2025-03-12 08:41 | XMS_ITS | Encounter Summary ---
Author Organization [employer] Address [address] [facility] [address] 7t [place] [address] Care Team Providers Care Advice Clerk Name Role Phone Kimberley Cunningham OUTSIDE CUTTER Primary Care Provider Encounter Details Date Type Department Care Team (Late st Contact Info) Description 10/12/2023 Abstract [facility] MEDICINE [address] [place], [place] [phone] Sandra Villareal Social History Tobacco Use Types [...] documented as of this encounter Care Teams Advice Clerk Relationship Specialty Start Date End Date Kimberley Cunningham FNP [address] [place] [address] PCP - General Family Medicine 07/23/22 03/20/24 documented as of this encounter
--- OUTSIDE RECORDS SUMMARY | 2025-03-12 08:41 | XMS_ITS | Encounter Summary ---
Author Organization [employer] Address [address] [facility] 7t [place] [address] Care Team Providers Care Residential Fee Appraiser Name Role Phone Kimberley Cunningham Primary Care Provider [phone] Reason for Visit * Reason Comments Med Refill Encounter Details Date Type Department Care Team ([facility] st Contact Info) Description 07/26/2023 Refill [facility] MEDICINE [address] [place] [address] Kimberley Cunningham FNP [address] [place] [address] Depressive disorder Social History Tobacco Use Types [...] documented as of this encounter Care Teams Residential Fee Appraiser Relationship Specialty Start Date End Date Kimberley Cunningham FNP [address] [place] [address] PCP - General Family Medicine 07/23/22 03/20/24 documented as of this encounter
[2025-03-12 11:48] LABS: Alanine Aminotransferase 139 U/L (0-31); Albumin Level 3.7 g/dL (3.5-5.0); Anion Gap 12 (12-20); Aspartate Amino Transferase 65 U/L (5-31); Bilirubin Total 0.5 mg/dL (0.0-1.0); Blood Urea Nitrogen 17 mg/dL (9-16); Calcium 9.7 mg/dL (8.4-10.2); Carbon Dioxide 27 mmol/L (22-29); Chloride 102 mmol/L (96-108); Estimated Glomerular Filt Rate > 60; Glucose Random 218 mg/dL (60-115); Potassium 4.3 mmol/L (3.3-5.1); Sodium 137 mmol/L (135-145); Total Protein 8.4 g/dL (6.5-8.0)
[2025-03-12 11:50] LABS: Alkaline Phosphatase 59 U/L (39-117)
== END 2025-03-12 07:35 | disposition home or self-care (01) ==
LOC: HO.LAB 07:34
PROVIDERS: Absent Provider Internal Medicine Gastroenterology; PCP Internal Medicine; Visit Provider Student in an Organized Health Care Education/Training Program
DX: M33.13 Other dermatomyositis without myopathy (principal); K75.81 Nonalcoholic steatohepatitis (NASH); R79.89 Other specified abnormal findings of blood chemistry; Z79.899 Other long term (current) drug therapy
CPT/HCPCS: 36415; 80053; 82550; 99212

== ENCOUNTER 2025-03-26 13:56 | Outpatient (AMB) | payer OTHER, SELFPAY ==
--- NOTE | 2025-03-26 14:17 | MHC.OFFVIS ---
Intake Visit Reasons: vaginal itching and burning Nutritional Services Cook: Nutritional Services Cook Present (Estefani) Accompanied by: Self / Same As Patient Allergies penicillin V Allergy (Unknown, Verified 03/26/25 14:17) hives Penicillins [PENICILLINS] Allergy (Unknown, Verified 03/26/25 14:17) RASH,DIZZINESS Medication List - Last Reconciled 03/26/25 by Tanisha Hendricks CNM alprazolam 0.25 mg PO DAILY PRN aspirin (Adult Low Dose Aspirin) 81 mg PO DAILY blood glucose control high,low (FreeStyle Control solution) As directed [blood pessure cuff As directed] blood sugar diagnostic (FreeStyle Lite Strips) 3 times a day blood-glucose meter (FreeStyle Lite Meter kit) As directed TID cane As directed cholecalciferol (vitamin D3) 50 mcg PO DAILY dapagliflozin propanediol (Farxiga) 10 mg PO DAILY ferrous sulfate 325 mg PO BID fluoxetine 10 mg PO DAILY insulin glargine (Lantus Solostar U-100 Insulin) 15 units (0.15 mL) subcut DAILY 30 days isosorbide mononitrate ER 30 mg PO DAILY lancets (TRUEplus Lancets) As directed check BS TID lancets (FreeStyle Lancets) As directed three times a day levothyroxine 150 mcg PO DAILY@0600 losartan 25 mg PO DAILY melatonin 10 mg PO BEDTIME PRN metformin 1,000 mg PO BID metoprolol succinate ER 50 mg PO DAILY nitrofurantoin monohyd/m-cryst 100 mg (Macrobid) 100 mg PO Q12H 7 days pen needle, diabetic (BD Corin 2nd Gen Pen Needle) once a day pen needle, diabetic (BD Ultra-Fine Corin Pen Needle) As directed once daily pen needle, diabetic (BD Ultra-Fine Corin Pen Needle) As directed polyethylene glycol 3350 (Miralax) 17 grams PO BID prednisone 20 mg PO DAILY sodium,potassium,mag sulfates 17.5-3.13-1.6 gram (Suprep Bowel Prep Kit) DILUTE; drink 1/2 at 6-8 pm and half at 11 PM- 1AM ticagrelor (Brilinta) 90 mg PO BID Is last menstrual period known: No Post menopausal: Yes Patient : No HPI HPI vaginal itching and burning: Details: Patient complains of vaginal itching and burning. She wonders if she has a rash down there she is on a lot of medications and she thought she had been on antibiotics she had a biopsy done recently on her leg and it is still bandaged and is healing. She said it turned out okay. She has a lot of health issues including she had stents placed in her heart and she is on blood thinners and she also sees a calender roll operator for rheumatology and lots of inflammation her body she has not had sex in about 5 months because she had palpitations when she did. She had been on antibiotics after the biopsy and was aware that that could predispose her to a yeast infection. She is also diabetic and she actually knows that the prednisone is increasing her blood sugars. She Was very careful to let me know that she is on the blood thinners and wanted to 1 me less dye do anything that would cause bleeding. [facility] Medical History Dermatomyositis Elevated CK CAD (coronary artery disease) STEMI (ST elevation myocardial infarction) GERD (gastroesophageal reflux disease) Physical exam, pre-employment Sebaceous cyst RUQ pain Cervical polyp Muscle strain of right scapular region H. 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 Father Diabetes Heart disease Mother Diabetes Hypertension Heart disease Brother Lung cancer Sister Heart disease Social History Household Members: Family Housing: House Are you a primary healthcare management to a significant other at home: No Do you presently have visiting nurse or other home services: Yes Unable to assess alcohol history related to: Unknown Alcohol intake: never Patient Tobacco Use Status: Never used Tobacco Tobacco use type: Cigarette e-Cigarette/Vaping Use: Never Used Second Hand Smoke Exposure: No Patient : No service: No Current occupational status: employed and disabled Current occupation: [employer] Cognitive needs: No Hearing needs: No Vision needs: No Female Reproductive History Menstrual Age of Menarche: 12 control method: none Total pregnancies: 6 Full term: 5 Date of last pap smear: 04/22/24 (negative pap smear, negative hpv ) History of abnormal pap smear: No Date of Mammogram: 10/10/24 (bi rad 1) Physical Exam Const Other: Patient is thin and frail but very alert and an excellent historian. She has a large well bandaged rectangle on her right upper thigh she also said she had stents placed in her heart very recently(within last few months) Other: External vulva is reddened and dry consistent with yeast infection. Vagina itself is pink and moist small amount of white discharge mucosa otherwise moist cervix smooth. Assessment & Plan Assessment & Plan (1) Type 2 diabetes mellitus with hyperglycemia: Comment: 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 transplanted heart: unspecified whether [place] de[place]-ni' or transplanted heart Associated angina: without angina Qualified Code(s): I25.10 - Atherosclerotic heart disease of tolowa dee-ni' coronary artery without angina pectoris (4) Yeast infection of the vagina: Comment: It isn't is aware that the prednisone she is on is increasing her blood sugars(diabetic). And she recently finished a course of antibiotics which she knows puts her at risk of yeast. Code(s): B37.31 - Acute candidiasis of vulva and vagina Category: Medical (5) Hx of intermediate manager use of blood thinners: Comment: ACTUALLY-- patient says she recently started them, after the cardiac interventions and will be on them for year Code(s): Z79.01 - terminal block assembler (current) use of anticoagulants Category: Medical Plan Patient definitely has symptoms of a yeast infection and given her recent antibiotics and concurrent use of prednisone which is elevating her blood sugars it is certainly understandable given that she is a diabetic. I offered her the choice of p.o. fluconazole or the cream and she chose the cream as she is taking so many other medications. I am giving her Monistat 7 to use p.r.n. whenever she has some vaginal itching and I gave her 5 refills on it so that she can feel free to use it when she needs it she may use it for week but if she still is symptomatic after she had can refill it then as well we will see her for whenever she comes for her regular visits. Medications: New miconazole nitrate 2% (Miconazole-7) May use a internally as well as externally, and may use any time she believes she has a yeast infection. 1 appful vaginal BEDTIME 45 grams 5RF 7 days Coding Level of Care Code Est Pt Level 3 (69894) Diagnoses Type 2 diabetes mellitus with hyperglycemia, with long-term current use of insulin E11.65; Z79.4 Diabetes mellitus intermediate manager insulin use: with custodial use penitentiary (current) use of insulin Z79.4 Coronary artery disease without angina pectoris, unspecified vessel or lesion type, unspecified whether [place] de[place]-ni' or transplanted heart I25.10 Coronary Disease-Associated Artery/Lesion type: unspecified vessel or lesion type [place] vs. transplanted heart: unspecified whether [place]lowa dee-ni' or transplanted heart Associated angina: without angina Yeast infection of the vagina B37.31 Hx of intermediate manager use of blood thinners Z79.01
--- OUTSIDE RECORDS SUMMARY | 2025-03-26 16:10 | XMS_ITS | Encounter Summary ---
Author Organization [employer] Address [address] [facility] [address] 7t [place] [address] Care Team Providers Care Financial Sales Associate Name Role Phone Unavailable Primary Care Provider Unavailabl e Reason for Visit * Reason Comments Med Refill Encounter Details Date Type Department Care Team (Late st Contact Info) Description 05/21/2024 Refill [facility] MEDICINE [address] [place] [address] Kimberley Cunningham FNP [address] [place] [address] Primary hypertension Social History Tobacco Use Types [...] t he electric, gas, oil or water [employer] threatened to shut off services in your [...]
--- OUTSIDE RECORDS SUMMARY | 2025-03-26 16:10 | XMS_ITS | Encounter Summary ---
Author Organization [employer] Address [address] [facility] [address] 7t [place] [address] Care Team Providers Care Swatch Checker Name Role Phone Unavailable Primary Care Provider Unavailabl e Reason for Visit * Reason Comments Med Refill Encounter Details Date Type Department Care Team (Late st Contact Info) Description 01/16/2025 Refill [facility] MEDICINE [address] [place] [address] Kimberley Cunningham FNP [address] [place] [address] Type 2 diabetes mellitus with hyperglycemia (CMS/HCC) [...]
--- OUTSIDE RECORDS SUMMARY | 2025-03-26 16:10 | XMS_ITS | Clinical Summary ---
Author Organization [facility] Facility Address [address] [facility] [address] [place] [address] [place] [address] Care Team Providers Care Inventory Coordinator Name Role Phone Zaria Milan MD Primary Care Provider [phone] Encounters Date Type Department Care Team Description 03/11/2025 Telephone [facility] [address] [place] [address] Siomara Howell from Last 3 [...] patient's age to complete this topic Insurance [facility] Medicaid Care Teams Inventory Coordinator Relationship Specialty Start Date End Date Zaria Milan MD [address] [place], [place] PCP - General Internal Medicine 02/16/25
--- OUTSIDE RECORDS SUMMARY | 2025-03-26 16:10 | XMS_ITS | Encounter Summary ---
Author Organization [employer] Address [address] [facility] [address] 7t [place] [address] Care Team Providers Care Gluer Machine Operator Name Role Phone Unavailable Primary Care Provider Unavailabl e Reason for Visit * Reason Comments Med Refill Encounter Details Date Type Department Care Team (Late st Contact Info) Description 05/20/2024 Refill [facility] MEDICINE [address] [place] [address] Kimberley Cunningham FNP [address] [place] [address] Primary hypertension Social History Tobacco Use Types [...] t he electric, gas, oil or water [employer] threatened to shut off services in your [...]
--- OUTSIDE RECORDS SUMMARY | 2025-03-26 16:10 | XMS_ITS | Encounter Summary ---
Author Organization [employer] Address [address] [facility] [address] 7t [place] [address] Care Team Providers Care Commercial Lines Account Assistant Name Role Phone Unavailable Primary Care Provider Unavailabl e Reason for Visit * Reason Comments Med Refill Encounter Details Date Type Department Care Team (Late st Contact Info) Description 08/12/2024 Refill [facility] MEDICINE [address] [place] [address] Kimberley Cunningham FNP [address] [place] [address] Vitamin D insufficiency Social History Tobacco Use [...] the past 12 months, has t he [employer], gas, oil or water company threatened to [...]
--- OUTSIDE RECORDS SUMMARY | 2025-03-26 16:10 | XMS_ITS | Clinical Summary ---
Author Organization [employer] Address [address] [facility] 7t [place] [address] Care Team Providers Care Cake Batter Mixer Name Role Phone Unavailable Primary Care [...] e 2 diabetes mellitus treated with insulin ([facility]) INJECT 8 UNITS SUBCUTANEOUSLY ONCE DAILY IN THE EVENING 15 mL 3 11/01/20 23 Active linaGLIPtin (Tradjenta) 5 MG tabletIndications: Type 2 diabetes mellitus without complication, with long-term current use of insulin ([facility]) TAKE 1 TABLET BY MOUTH EVERYDAY AT [...] 10 MGIndications:Type 2 diabetes mellitus with hyperglycemia ([facility]) TAKE 1 TABLET BY MOUTH EVERYDAY AT [...] complication, with long-term current use of insulin ([facility]) TAKE 1 TABLET BY MOUTH TWICE DAILY AT NOON AND IN THE EVENING 180 tablet 1 03/20/20 24 Active lisinopril 20 MG tabletIndications: Primary hypertension TAKE 1 TABLET BY MOUTH AT BEDTIME 90 tablet 2 05/22/20 24 Active FREESTYLE LITE test stripIndications:T ype 2 diabetes mellitus with hyperglycemia ([facility]/HCC) TEST BLOOD SUGAR 3 TIMES A [...] -Pt in the process of re-establishing with [facility] -Per last available consult note: -CONT [...] Type Department Care Team Description 01/16/2025 Refill [facility] MEDICINE [address] [place] [address] Kimberley Cunningham FNP Type 2 diabetes mellitus with hyperglycemia ([facility]/HCC) 01/12/2025 Refill [facility] MEDICINE [address] [place], [place] [phone] Kimberley Cunningham FNP Type 2 diabetes mellitus with hyperglycemia ([facility]) from Last 3 Months Immunizations Name Administration [...] complication, with long-term current use of insulin ([facility]) MAMMOGRAM GENERIC Routine 10/05/2022 10: 20 AM [...] Legacy Procedure: Mammography Report 1 Kimberley Cunningham [facility] DIRECTOR IMG BI PROCEDURES Final Result * LIPID [...] the ?? estimation of LDL-C. ?? Jesús ROBETRS et al. KORTNEY. 2013;310(19): 3428-9627 ?? (http://education.[employer]/faq/LGP949) Non-HDL Cholesterol 87 <130 mg/dL (calc) [facility] Comment: For patients with diabetes plus 1 major ASCVD risk ?? factor, treating to a non-HDL-C goal of <100 mg/dL ?? (LDL-C of <70 mg/dL) is considered a therapeutic ?? option. Triglycerides 91 <150 mg/dL CONVE RT[facility] 10/04/2022 8:50 AM EST Kimberley Cunningham [facility] LAB BLOOD ORDERABLES Final Res [...] ORDERABLE LABS Final Result Performing Organization Address City/[facility]/ZIP Co de Phone Number [facility] [address] * Pap Smear (03/14/2019) Pap Negative [...] Most Recently Relevant to Health Maintenance Insurance [facility] STAND ADULT
--- OUTSIDE RECORDS SUMMARY | 2025-03-26 16:11 | XMS_ITS | Encounter Summary ---
Author Organization [facility] Address [address] [facility] 7t [place] [address] Care Team Providers Care Granite Setter Name Role Phone Kimberley Cunningham Primary Care Provider [phone] Encounter Details Date Type Department Care Team (Latest Contact Info) Description 01/07/[address] [facility] CONVERSIONS Dental, Provider, DDS Social [...] on filedocumented in this encounter Care Teams Granite Setter Relationship Specialty Start Date End Date Kimberley Cunningham FNP [address] [place] [address] PCP - General Family Medicine 07/23/22 03/20/24 documented as of this encounter
--- OUTSIDE RECORDS SUMMARY | 2025-03-26 16:11 | XMS_ITS | Encounter Summary ---
Author Organization [employer] Address [address] 7t [place] [address] Care Team Providers Care Electrotype Molder Name Role Phone Unavailable Primary Care Provider Unavailabl e Reason for Visit * Reason Comments Med Refill Encounter Details Date Type Department Care Team (Late st Contact Info) Description 01/12/2025 Refill [facility] MEDICINE 230 [place] [address] Kimberley Cunningham FNP [address] [place] [address] Type 2 diabetes mellitus with hyperglycemia (CMS/HCC) [...]
--- OUTSIDE RECORDS SUMMARY | 2025-03-26 16:11 | XMS_ITS | Encounter Summary ---
Author Organization [employer] Address [address] 7t [place] [address] Care Team Providers Care Health And Wellness Advisor Name Role Phone Unavailable Primary Care Provider Unavailabl e Reason for Visit * Reason Comments Med Refill Encounter Details Date Type Department Care Team ([facility] st Contact Info) Description 09/10/2024 Refill [facility] MED & PEDS 505 [place], [place] [phone] Kimberley Cunningham, EILEEN 505 [place], [place] [phone] Depressive disorder Social History Tobacco Use Types [...] t he electric, gas, oil or water [employer] threatened to shut off services in your [...]
--- OUTSIDE RECORDS SUMMARY | 2025-03-26 16:11 | XMS_ITS | Encounter Summary ---
Author Organization [employer] Address [address] [facility] 7t [place] [address] Care Team Providers Care Rotary Screen Printing Machine Operator Name Role Phone Unavailable Primary Care Provider Unavailabl e Reason for Visit * Reason Comments Med Refill Encounter Details Date Type Department Care Team ([facility] st Contact Info) Description 10/13/2024 Refill [facility] MED & PEDS 505 [place], [place] [phone] Kimberley Cunningham, EILEEN 505 [place] [address] Type 2 diabetes mellitus without complication, with long-term current use of insulin ([facility]) Social History Tobacco Use [...] complication, with long-term current use of insulin ([facility]) documented in this encounter Additional Health Concerns Assessment Noted Time PHQ-9 Depression Total Score: 2 01/09/20 23 9:19 AM EST documented as of this encounter
--- OUTSIDE RECORDS SUMMARY | 2025-03-26 16:11 | XMS_ITS | Encounter Summary ---
Author Organization [employer] Address [address] [facility] [address] 7t [place] [address] Care Team Providers Care Mitten Sewer Name Role Phone Unavailable Primary Care Provider Unavailabl e Reason for Visit * Reason Comments Med Refill Encounter Details Date Type Department Care Team ([facility] st Contact Info) Description 11/13/2024 Refill [facility] MEDICINE [address] [place] [address] Kimberley Cunningham FNP [address] [place] [address] Type 2 diabetes mellitus without complication, with long-term current use of insulin ([facility]) Social History Tobacco Use [...] with long-term current use of insulin ([facility]) documented in this encounter Additional Health Concerns Assessment Noted Time PHQ-9 Depression Total Score: 2 01/09/20 23 9:19 AM EST documented as of this encounter
--- OUTSIDE RECORDS SUMMARY | 2025-03-26 16:11 | XMS_ITS | Encounter Summary ---
Author Organization [employer] Address [address] 7t [place] [address] Care Team Providers Care It Risk Advisor Name Role Phone Kimberley Cunningham DISK GRINDER Primary Care Provider [phone] Encounter Details Date Type Department Care Team (Late st Contact Info) Description 10/12/2023 Abstract [facility] MEDICINE 230 [place], [place] [phone] Sandra Villareal Social History Tobacco Use Types [...] documented as of this encounter Care Teams It Risk Advisor Relationship Specialty Start Date End Date Kimberley Cunningham FNP [address] [place] [phone] PCP - General Family Medicine 07/23/22 03/20/24 documented as of this encounter
--- OUTSIDE RECORDS SUMMARY | 2025-03-26 16:11 | XMS_ITS | Encounter Summary ---
Author Organization [employer] Address [address] [facility] 7t [place] [address] Care Team Providers Care Sewer Repairer Name Role Phone Kimberley Cunningham THRESHING DEPARTMENT SUPERVISOR Primary Care Provider [phone] Reason for Visit * Reason Comments Med Refill Encounter Details Date Type Department Care Team ([facility] st Contact Info) Description 09/08/[address] [facility] MEDICINE 230 [place], [place] [phone] Jojo Washburn MD 230 [place], [place] [phone] Depressive disorder Social History Tobacco Use Types [...] documented as of this encounter Care Teams Sewer Repairer Relationship Specialty Start Date End Date Kimberley Cunningham FNP [address] [place] [address] PCP - General Family Medicine 07/23/22 03/20/24 documented as of this encounter
--- OUTSIDE RECORDS SUMMARY | 2025-03-26 16:11 | XMS_ITS | Encounter Summary ---
Author Organization [employer] [facility] Address [address] [facility] 7t [place] [address] Care Team Providers Care User Acceptance Tester Name Role Phone Kimberley Cunningham Primary Care Provider [phone] Encounter Details Date Type Department Care Team (Latest Contact Info) Description 01/20/2021 Abstract [facility] CONVERSIONS Dental, Provider, DDS Social History [...] on filedocumented in this encounter Care Teams User Acceptance Tester Relationship Specialty Start Date End Date Kimberley Cunningham FNP 230 [place] [address] PCP - General Family Medicine 07/23/22 03/20/24 documented as of this encounter
--- OUTSIDE RECORDS SUMMARY | 2025-03-26 16:11 | XMS_ITS | Encounter Summary ---
Author Organization [employer] Address [address] [facility] [address] 7t [place] [address] Care Team Providers Care Hand Loom Weaver Name Role Phone Unavailable Primary Care Provider Unavailabl e Reason for Visit * Reason Comments Med Refill Encounter Details Date Type Department Care Team (Late st Contact Info) Description 06/17/[address] [facility] MEDICINE 230 [place] [address] Kimberley Cunningham FNP [address] [place] [address] Other hyperlipidemia; Type 2 diabetes mellitus with [...]
--- OUTSIDE RECORDS SUMMARY | 2025-03-26 16:11 | XMS_ITS | Encounter Summary ---
Author Organization [employer] Address [address] [facility] 7t [place] [address] Care Team Providers Care Creative Engagement Director Name Role Phone Kimberley Cunningham Primary Care Provider [phone] Reason for Visit * Reason Comments Med Refill Encounter Details Date Type Department Care Team ([facility] st Contact Info) Description 07/26/2023 Refill [facility] MEDICINE 230 [place] [address] Kimberley Cunningham FNP 505 [place] [address] Depressive disorder Social History Tobacco Use Types [...] documented as of this encounter Care Teams Creative Engagement Director Relationship Specialty Start Date End Date Kimberley Cunningham FNP 230 [place] [address] PCP - General Family Medicine 07/23/22 03/20/24 documented as of this encounter
--- OUTSIDE RECORDS SUMMARY | 2025-03-26 16:11 | XMS_ITS | Encounter Summary ---
Author Organization [employer] Address [address] 7t [place] [address] Care Team Providers Care Provider Network Mgr Name Role Phone Unavailable Primary Care Provider Unavailabl e Reason for Visit * Reason Comments Med Refill Encounter Details Date Type Department Care Team ([facility] st Contact Info) Description 08/15/2024 Refill [facility] MED & PEDS 505 [place], [place] [phone] Kimberley Cunningham, DRIVING INSTRUCTOR 505 [place], [place] [phone] Hypothyroidism, unspecified type Social History Tobacco Use [...]
== END 2025-03-26 15:10 | disposition home or self-care (01) ==
LOC: HO.HWS 13:56
PROVIDERS: PCP Internal Medicine; Visit Provider Advanced Practice Midwife
DX: E11.65 Type 2 diabetes mellitus with hyperglycemia (principal); Z79.4 Long term (current) use of insulin; I25.10 Atherosclerotic heart disease of native coronary artery without angina pectoris; B37.31 Acute candidiasis of vulva and vagina; Z79.01 Long term (current) use of anticoagulants
CPT/HCPCS: 99213

== ENCOUNTER 2025-03-26 13:56 | Outpatient (REF) | payer OTHER, SELFPAY ==
--- OUTSIDE RECORDS SUMMARY | 2025-03-26 16:56 | XMS_ITS | Encounter Summary ---
Author Organization [employer] Address [address] 7t [place] [address] Care Team Providers Care Ancient Art Curator Name Role Phone Unavailable Primary Care Provider Unavailabl e Reason for Visit * Reason Comments Med Refill Encounter Details Date Type Department Care Team (Late st Contact Info) Description 01/12/2025 Refill [facility] MEDICINE 230 [place] [address] Kimberley Cunningham FNP [address] [place] [address] Type 2 diabetes mellitus with hyperglycemia (CMS/HCC) [...]
--- OUTSIDE RECORDS SUMMARY | 2025-03-26 16:56 | XMS_ITS | Encounter Summary ---
Author Organization [employer] Address [address] 7t [place] [address] Care Team Providers Care Sweatband Cutting Machine Operator Name Role Phone Unavailable Primary Care Provider Unavailabl e Reason for Visit * Reason Comments Med Refill Encounter Details Date Type Department Care Team ([facility] st Contact Info) Description 09/10/2024 Refill [facility] MED & PEDS 505 [place], [place] [phone] Kimberley Cunningham, EILEEN 505 [place], [place] [phone] Depressive disorder Social History Tobacco Use Types [...] t he electric, gas, oil or water [employer] threatened to shut off services in your [...]
--- OUTSIDE RECORDS SUMMARY | 2025-03-26 16:56 | XMS_ITS | Encounter Summary ---
Author Organization [employer] Address [address] [facility] 7t [place] [address] Care Team Providers Care Fuel Cell Binder Name Role Phone Unavailable Primary Care Provider Unavailabl e Reason for Visit * Reason Comments Med Refill Encounter Details Date Type Department Care Team ([facility] st Contact Info) Description 10/13/2024 Refill [facility] MED & PEDS 505 [place], [place] [phone] Kimberley Cunningham, EILEEN 505 [place] [address] Type 2 diabetes mellitus without complication, with long-term current use of insulin ([facility]) Social History Tobacco Use Types Packs/Day Years [...] with long-term current use of insulin ([facility]) documented in this encounter Additional Health Concerns Assessment Noted Time PHQ-9 Depression Total Score: 2 01/09/20 23 9:19 AM EST documented as of this encounter
--- OUTSIDE RECORDS SUMMARY | 2025-03-26 16:56 | XMS_ITS | Encounter Summary ---
Author Organization [employer] Address [address] 7t [place] [address] Care Team Providers Care Network Engineer Name Role Phone Unavailable Primary Care Provider Unavailabl e Reason for Visit * Reason Comments Med Refill Encounter Details Date Type Department Care Team (Late st Contact Info) Description 01/16/2025 Refill [facility] MEDICINE 230 [place] [address] Kimberley Cunningham FNP [address] [place] [address] Type 2 diabetes mellitus with hyperglycemia (CMS/HCC) [...]
--- OUTSIDE RECORDS SUMMARY | 2025-03-26 16:56 | XMS_ITS | Clinical Summary ---
Author Organization [facility] Address [address] [facility] [address] [address] [place] [address] [place] [address] Care Team Providers Care Instrument Technician Apprentice Name Role Phone Zaria Milan MD Primary Care Provider [phone] Encounters Date Type Department Care Team Description 03/11/2025 Telephone [facility] [address] [place] [address] Siomara Howell from Last 3 [...] patient's age to complete this topic Insurance [facility] [place] [phone] Care Teams Instrument Technician Apprentice Relationship Specialty Start Date End Date Zaria Milan MD [address] [place], [place] PCP - General Internal Medicine 02/16/25
--- OUTSIDE RECORDS SUMMARY | 2025-03-26 16:56 | XMS_ITS | Encounter Summary ---
Author Organization [employer] Address [address] 7t [place] [address] Care Team Providers Care Leak Detection Engineer Name Role Phone Kimberley Cunningham VICE PRESIDENT OF MANUFACTURING Primary Care Provider [phone] Encounter Details Date Type Department Care Team (Late st Contact Info) Description 10/12/2023 Abstract [facility] MEDICINE 230 [place], [place] [phone] Sandra Villareal Social History Tobacco Use Types [...] documented as of this encounter Care Teams Leak Detection Engineer Relationship Specialty Start Date End Date Kimberley Cunningham FNP [address] [place] [id number] PCP - General Family Medicine 07/23/22 03/20/24 documented as of this encounter
--- OUTSIDE RECORDS SUMMARY | 2025-03-26 16:56 | XMS_ITS | Encounter Summary ---
Author Organization [employer] Address [address] [facility] [address] 7t [place] [address] Care Team Providers Care Jeep Driver Name Role Phone Unavailable Primary Care Provider Unavailabl e Reason for Visit * Reason Comments Med Refill Encounter Details Date Type Department Care Team ([facility] st Contact Info) Description 08/15/2024 Refill [facility] MED & PEDS 505 [place], [place] [phone] Kimberley Cunningham, ELECTRONIC COURT RECORDER 505 [place], [place] [phone] Hypothyroidism, unspecified type Social History Tobacco Use [...]
--- OUTSIDE RECORDS SUMMARY | 2025-03-26 16:56 | XMS_ITS | Clinical Summary ---
Author Organization [employer] Address [address] [facility] 7t [place] [address] Care Team Providers Care Disassembler Name Role Phone Unavailable Primary Care Provider [...] e 2 diabetes mellitus treated with insulin ([facility]) INJECT 8 UNITS SUBCUTANEOUSLY ONCE DAILY IN THE EVENING 15 mL 3 11/01/20 23 Active linaGLIPtin (Tradjenta) 5 MG tabletIndications: Type 2 diabetes mellitus without complication, with long-term current use of insulin ([facility]) TAKE 1 TABLET BY MOUTH EVERYDAY [...] 10 MGIndications:Type 2 diabetes mellitus with hyperglycemia ([facility]) TAKE 1 TABLET BY MOUTH EVERYDAY [...] complication, with long-term current use of insulin ([facility]) TAKE 1 TABLET BY MOUTH TWICE DAILY AT NOON AND IN THE EVENING 180 tablet 1 03/20/20 24 Active lisinopril 20 MG tabletIndications: Primary hypertension TAKE 1 TABLET BY MOUTH AT BEDTIME 90 tablet 2 05/22/20 24 Active FREESTYLE LITE test stripIndications:T ype 2 diabetes mellitus with hyperglycemia ([facility]/HCC) TEST BLOOD SUGAR 3 TIMES A [...] -Pt in the process of re-establishing with [facility] -Per last available consult note: -CONT [...] Type Department Care Team Description 01/16/2025 Refill [facility] MEDICINE 230 [place] [address] Kimberley Cunningham FNP Type 2 diabetes mellitus with hyperglycemia ([facility]/HCC) 01/12/2025 Refill [facility] MEDICINE 230 [place], [place] [phone] Kimberley Cunningham FNP Type 2 diabetes mellitus with hyperglycemia ([facility]) from Last 3 Months Immunizations Name [...] complication, with long-term current use of insulin ([facility]) MAMMOGRAM GENERIC Routine 10/05/2022 10: 20 [...] Legacy Procedure: Mammography Report 1 Kimberley Cunningham ARTIFICIAL FLOWERS STARCHER IMG BI PROCEDURES Final Result * LIPID [...] ?? Jesús ROBERTS et al. KORTNEY. 2013;310(19): 0801-4512 ?? (http://education.MesMateriaux/faq/BRJ298) Non-HDL Cholesterol 87 <130 mg/dL (calc) [facility] Comment: For patients with diabetes plus 1 major ASCVD risk ?? factor, treating to a non-HDL-C goal of <100 mg/dL ?? (LDL-C of <70 mg/dL) is considered a therapeutic ?? option. Triglycerides 91 <150 mg/dL CONVE RT[facility] 10/04/2022 8:50 AM EST Kimberley Cunningham [facility] BLOOD ORDERABLES Final Res ult [...] ORDERABLE LABS Final Result Performing Organization Address City/[facility]/ZIP Co de Phone Number [facility] [address] * Pap Smear (03/14/2019) Pap Negative [...] Most Recently Relevant to Health Maintenance Insurance [facility] MEDICA[facility] STAND ADULT
--- OUTSIDE RECORDS SUMMARY | 2025-03-26 16:56 | XMS_ITS | Encounter Summary ---
Author Organization [facility] Address [address] [facility] 7t [place] [address] Care Team Providers Care Engagement Quality Consultant Name Role Phone Kimberley Cunningham Primary Care Provider [phone] Encounter Details Date Type Department Care Team (Latest Contact Info) Description 01/20/2021 Abstract [facility] CONVERSIONS Dental, Provider, DDS Social History Tobacco [...] on filedocumented in this encounter Care Teams Engagement Quality Consultant Relationship Specialty Start Date End Date Kimberley Cunningham FNP 230 [place] [address] PCP - General Family Medicine 07/23/22 03/20/24 documented as of this encounter
--- OUTSIDE RECORDS SUMMARY | 2025-03-26 16:56 | XMS_ITS | Encounter Summary ---
Author Organization [employer] Address [address] [facility] 7t [place] [address] Care Team Providers Care Date Night Caregiver Name Role Phone Kimberley Cunningham HYPOID GEAR GENERATOR Primary Care Provider Reason for Visit * Reason Comments Med Refill Encounter Details Date Type Department Care Team ([facility] st Contact Info) Description 09/08/2023 Refill [facility] MEDICINE 230 [place], [place] [phone] Jojo Washburn MD 230 [place], [place] [phone] Depressive disorder Social History Tobacco Use Types [...] documented as of this encounter Care Teams Date Night Caregiver Relationship Specialty Start Date End Date Kimberley Cunningham FNP [address] [place] [address] PCP - General Family Medicine 07/23/22 03/20/24 documented as of this encounter
--- OUTSIDE RECORDS SUMMARY | 2025-03-26 16:56 | XMS_ITS | Encounter Summary ---
Author Organization [employer] Address [address] [facility] 7t [place] [address] Care Team Providers Care Livestock Trucker Name Role Phone Kimberley Cunningham Primary Care Provider [phone] Reason for Visit * Reason Comments Med Refill Encounter Details Date Type Department Care Team ([facility] st Contact Info) Description 07/26/2023 Refill [facility] MEDICINE 230 [place] [address] Kimberley Cunningham FNP 505 [place] [address] Depressive disorder Social History Tobacco Use Types [...] documented as of this encounter Care Teams Livestock Trucker Relationship Specialty Start Date End Date Kimberley Cunningham FNP 230 [place] [address] PCP - General Family Medicine 07/23/22 03/20/24 documented as of this encounter
--- OUTSIDE RECORDS SUMMARY | 2025-03-26 16:56 | XMS_ITS | Encounter Summary ---
Author Organization [employer] Address [address] [address]t [place] [address] Care Team Providers Care Ground Nuclear Weapons Assembly Officer Name Role Phone Unavailable Primary Care Provider Unavailabl e Reason for Visit * Reason Comments Med Refill Encounter Details Date Type Department Care Team (Late st Contact Info) Description 06/17/2024 Refill [facility] MEDICINE 230 [place] [address] Kimberley Cunningham FNP [address] [place] [address] Other hyperlipidemia; Type 2 diabetes mellitus with [...]
--- OUTSIDE RECORDS SUMMARY | 2025-03-26 16:56 | XMS_ITS | Encounter Summary ---
Author Organization [employer] Address [address] [facility] [address] 7t [place] [address] Care Team Providers Care Chiropractor Sole Practitioner Name Role Phone Unavailable Primary Care Provider Unavailabl e Reason for Visit * Reason Comments Med Refill Encounter Details Date Type Department Care Team (Late st Contact Info) Description 08/12/2024 Refill [facility] MEDICINE 230 [place] [address] Kimberley Cunningham FNP [address] [place] [address] Vitamin D insufficiency Social History Tobacco Use [...] the past 12 months, has t he [employer], gas, oil or water company threatened to [...]
--- OUTSIDE RECORDS SUMMARY | 2025-03-26 16:56 | XMS_ITS | Encounter Summary ---
Author Organization [facility] Address [address] [facility] 7t [place] [address] Care Team Providers Care Vice President Digital Strategist Name Role Phone Kimberley Cunningham Primary Care Provider [phone] Encounter Details Date Type Department Care Team (Latest Contact Info) Description 01/07/2020 Abstract [facility] CONVERSIONS Dental, Provider, DDS Social History Tobacco [...] on filedocumented in this encounter Care Teams Vice President Digital Strategist Relationship Specialty Start Date End Date Kimberley Cunningham FNP 230 [place] [address] PCP - General Family Medicine 07/23/22 03/20/24 documented as of this encounter
--- OUTSIDE RECORDS SUMMARY | 2025-03-26 16:56 | XMS_ITS | Encounter Summary ---
Author Organization [employer] Address [address] 7t [place] [address] Care Team Providers Care Personalized Living Assistant Name Role Phone Unavailable Primary Care Provider Unavailabl e Reason for Visit * Reason Comments Med Refill Encounter Details Date Type Department Care Team ([facility] st Contact Info) Description 11/13/2024 Refill [facility] MEDICINE 230 [place] [address] Kimberley Cunningham FNP [address] [place] [address] Type 2 diabetes mellitus without complication, with long-term current use of insulin ([facility]) Social History Tobacco Use Types Packs/Day [...] complication, with long-term current use of insulin ([facility]) documented in this encounter Additional Health Concerns Assessment Noted Time PHQ-9 Depression Total Score: 2 01/09/20 23 9:19 AM EST documented as of this encounter
--- OUTSIDE RECORDS SUMMARY | 2025-03-26 16:56 | XMS_ITS | Encounter Summary ---
Author Organization [employer] Address [address] 7t [place] [address] Care Team Providers Care Account Auditor Name Role Phone Unavailable Primary Care Provider Unavailabl e Reason for Visit * Reason Comments Med Refill Encounter Details Date Type Department Care Team (Late st Contact Info) Description 05/20/2024 Refill [facility] MEDICINE 230 [place] [address] Kimberley Cunningham FNP [address] [place] [address] Primary hypertension Social History Tobacco Use Types [...] t he electric, gas, oil or water [employer] threatened to shut off services in your [...]
--- OUTSIDE RECORDS SUMMARY | 2025-03-26 16:56 | XMS_ITS | Encounter Summary ---
Author Organization [employer] Address [address] [place] [address] Care Team Providers Care Workforce Development Program Director Name Role Phone Unavailable Primary Care Provider Unavailabl e Reason for Visit * Reason Comments Med Refill Encounter Details Date Type Department Care Team (Late st Contact Info) Description 05/21/2024 Refill [facility] [address] [place] [address] Kimberley Cunningham FNP [address] [place] [address] Primary hypertension Social History Tobacco Use Types [...] t he electric, gas, oil or water [employer] threatened to shut off services in your [...]
[2025-03-26 17:55] LABS: Bacterial Vaginosis PCR NEGATIVE (Negative); Candida Group PCR DETECTED (Not Detect); Candida glab krusei PCR DETECTED (Not Detect); Trichomonas vaginalis PCR NOT DETECTED (Not Detect)
[2025-03-26 18:27] LABS: CT PCR NOT DETECTED (Not Detect.); NG PCR NOT DETECTED (Not Detect.)
== END 2025-03-26 13:57 | disposition home or self-care (01) ==
LOC: HO.LNP 13:56
PROVIDERS: PCP Internal Medicine; Visit Provider Advanced Practice Midwife
DX: B37.31 Acute candidiasis of vulva and vagina (principal); N76.0 Acute vaginitis; E11.65 Type 2 diabetes mellitus with hyperglycemia; Z79.4 Long term (current) use of insulin; I25.10 Atherosclerotic heart disease of native coronary artery without angina pectoris
CPT/HCPCS: 81515; 87491; 87591; 99212

== ENCOUNTER 2025-04-06 14:19 | Outpatient (AMB) | payer OTHER, SELFPAY ==
[2025-04-06 14:22] VITALS: BP 140/74; PULSE 88; TEMP 36.2; O2SAT 99; BMI 22.4
--- NOTE | 2025-04-06 14:22 | MHC.PC.OV ---
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 Accompanied by: Daughter Allergies penicillin V Allergy (Unknown, Verified 04/06/25 14:27) hives Penicillins [PENICILLINS] Allergy (Unknown, Verified 04/06/25 14:27) RASH,DIZZINESS Medication List - Last Reconciled 04/06/25 by Conor Garcia MD alprazolam 0.25 mg PO DAILY PRN aspirin (Adult Low Dose Aspirin) 81 mg PO DAILY blood glucose control high,low (FreeStyle Control solution) As directed [blood pessure cuff As directed] blood sugar diagnostic (FreeStyle Lite Strips) 3 times a day blood-glucose meter (FreeStyle Lite Meter kit) As directed TID cane As directed cholecalciferol (vitamin D3) 50 mcg PO DAILY dapagliflozin propanediol (Farxiga) 10 mg PO DAILY ferrous sulfate 325 mg PO BID fluoxetine 10 mg PO DAILY insulin glargine (Lantus Solostar U-100 Insulin) 15 units (0.15 mL) subcut DAILY 30 days isosorbide mononitrate ER 30 mg PO DAILY lancets (TRUEplus Lancets) As directed check BS TID lancets (FreeStyle Lancets) As directed three times a day levothyroxine 150 mcg PO DAILY@0600 losartan 25 mg PO DAILY melatonin 10 mg PO BEDTIME PRN melatonin mg PO metformin 1,000 mg PO BID metoprolol succinate ER 50 mg PO DAILY pen needle, diabetic (BD Corin 2nd Gen Pen Needle) once a day pen needle, diabetic (BD Ultra-Fine Corin Pen Needle) As directed once daily pen needle, diabetic (BD Ultra-Fine Corin Pen Needle) As directed polyethylene glycol 3350 (Miralax) 17 grams PO BID sodium,potassium,mag sulfates 17.5-3.13-1.6 gram (Suprep Bowel Prep Kit) DILUTE; drink 1/2 at 6-8 pm and half at 11 PM- 1AM ticagrelor (Brilinta) 90 mg PO BID Tobacco use date assessed: 01/26/25 Dental Screening Dental Screen Date: 12/02/24 [facility] Medical History Dermatomyositis Elevated CK CAD (coronary artery disease) STEMI (ST elevation myocardial infarction) GERD (gastroesophageal reflux disease) Physical exam, pre-employment Sebaceous cyst RUQ pain Cervical polyp Muscle strain of right scapular region H. pylori infection Overweight (BMI 25.0-29.9) Hypertension Hypothyroidism detention (current) use of insulin Diabetes type 2, uncontrolled Surgical History Hx of knee surgery History of coronary artery stent placement Hx of tubal ligation Hx of cholecystectomy Family History Unknown No problems noted. Father Diabetes Heart disease Mother Diabetes Hypertension Heart disease Brother Lung cancer Sister Heart disease Social History Household Members: Family Housing: House Are you a primary residential care facility manager to a significant other at home: No Do you presently have visiting nurse or other home services: Yes Unable to assess alcohol history related to: Unknown Alcohol intake: never Patient Tobacco Use Status: Never used Tobacco Tobacco use type: Cigarette e-Cigarette/Vaping Use: Never Used Second Hand Smoke Exposure: No service: No Current occupational status: employed and disabled 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 1. Little interest or pleasure in doing things: more than half the days 2. Feeling down, depressed, or hopeless: more than half the days 3. Trouble falling or staying asleep, or sleeping too much: more than half the days 4. Feeling tired or having little energy: more than half the days 5. Poor appetite or overeating: not at all 6. Feeling bad about yourself - or that you are a failure or have let yourself or your family down: several days 7. Trouble concentrating on things, such as reading the newspaper or watching television: not at all 8. Moving or speaking so slowly that other people could have noticed. Or the opposite - being so fidgety or restless that you have been moving around a lot more than usual: several days 9. Thoughts that you would be better off or of hurting yourself in some way: not at all Total score: 10 Source: Developed by Drs. Deepak Woodard, Netta Chairez, Juan R Tovar and colleagues, with an educational kimi from [employer]. Thrive Questionnaire Date Thrive assessed: 12/04/24 I am a: Patient What is your living situation today?: I have a steady place to live Within the past 12 months, did the food you bought not last and you didn't have the money to get more?: Never true Within the past 12 months, did you worry whether your food would run out before you got money to buy more?: Never true Do you have trouble paying for medicines?: No Do you have trouble getting transportation to medical appointments?: No Do you have trouble paying your heating and electricity bill?: No Do you have trouble taking care of your child, family member or friend?: Yes Do you have trouble with day-to-day activities such as bathing, preparing meals, shopping, managing finances, etc.?: No Are you currently unemployed and looking for a job?: Yes Are you interested in more education?: Yes Please select the resources that you would like help with: None Currently or been in a relationship where the following occur: No concerns reported THRIVE Score: 0 AUDIT C Alcohol Use Questionnaire (AUDIT-C) 1. How often do you have a drink containing alcohol?: Never Total Score: 0 SHAWN-7 AMB Questionnaire SHAWN-7 Date SHAWN - 7 assessed: 12/02/24 Feeling nervous, anxious, or on edge: 1 = Several days Not being able to stop or control worryin = More than half the days Worrying too much about different things: 2 = More than half the days Trouble relaxin = More than half the days Being so restless that it is hard to sit still: 2 = More than half the days Becoming easily annoyed or irritable: 2 = More than half the days Feeling afraid as if something awful might happen: 2 = More than half the days Total SHAWN-7 score (0-4 normal; 5-9 mild; 10-14 moderate; 15-21 severe): 13 Source: Developed by Drs. Deepak Woodard, Netta Chairez, Juan R Tovar and colleagues, with an educational kimi from [employer]. Physical exam (Primary Care) Vital Signs: Last Vital Signs Temp 97.1 F 04/06/25 14:22 Pulse 88 04/06/25 14:22 BP 140/74 H 04/06/25 14:22 Pulse Ox 99 04/06/25 14:22 Oxygen Delivery Method Room Air 04/06/25 14:22 BMI result Body Mass Index 22.4 Tobacco/Smoking Status: Tobacco use Status Tobacco use date assessed 01/26/25 04/06/25 14:30 Patient Tobacco Use Status Never used Tobacco 04/06/25 14:30 Tobacco use type Cigarette 04/06/25 14:30 e-Cigarette/Vaping Use Never Used 04/06/25 14:30 PHQ-9: PHQ-9 Score PHQ-9: Total score 10 04/06/25 14:55 Thrive Assessment: Date of Thrive Assessment Date Thrive assessed 12/04/24 04/06/25 14:30 Currently or been in a relationship where the following occur: No concerns reported Const General: alert; No acute distress Eyes Conjunctivae: conjunctivae normal Resp Auscultation: clear to auscultation bilaterally Cardio Rate: regular rate Rhythm: regular rhythm GI Inspection: Yes normal to inspection Extrem General: Yes normal to inspection and No edema Coding Level of Care Code Est Pt Level 4 (94106) Complex EM visit Add On G2211 Diagnoses Coronary artery disease without angina pectoris, unspecified vessel or lesion type, unspecified whether shawnee or transplanted heart I25.10 Associated angina: without angina Coronary Disease-Associated Artery/Lesion type: unspecified vessel or lesion type [place] vs. transplanted heart: unspecified whether shawnee or transplanted heart Gastroesophageal reflux disease without esophagitis K21.9 Esophagitis presence: without esophagitis Type 2 diabetes mellitus with hyperglycemia, with long-term current use of insulin E11.65; Z79.4 Diabetes mellitus adjunct faculty for medical terminology insulin use: with adjunct faculty for medical terminology use Essential hypertension I10 Hypertension type: essential hypertension Acquired hypothyroidism E03.9 Hypothyroidism type: acquired Hypercholesterolemia E78.00 Dermatomyositis M33.13 Assessment & Plan Assessment & Plan (1) CAD (coronary artery disease): Comment: 10/2024, December 2024 Code(s): I25.10 - Atherosclerotic heart disease of shawnee coronary artery without angina pectoris Category: Medical Qualifiers: Associated angina: without angina Coronary Disease-Associated Artery/Lesion type: unspecified vessel or lesion type [place] vs. transplanted heart: unspecified whether shawnee or transplanted heart Qualified Code(s): I25.10 - Atherosclerotic heart disease of shawnee coronary artery without angina pectoris Plan: Control the cholesterol, weight, blood pressure, patient on aspirin 81 mg once a day (2) GERD (gastroesophageal reflux disease): Code(s): K21.9 - Gastro-esophageal reflux disease without esophagitis Category: Medical Qualifiers: Esophagitis presence: without esophagitis Qualified Code(s): K21.9 - Gastro-esophageal reflux disease without esophagitis Plan: Avoid the foods that causes that usually spicy foods, tomato products, juices, coffee, soda and foods that your sensitive to. After eating do not lie down, allow 3-4 hours before in lie down. And keep the head of bed above 30 degrees to avoid the acid from going up. (3) Type 2 diabetes mellitus with hyperglycemia: Comment: [facility] Code(s): E11.65 - Type 2 diabetes mellitus with hyperglycemia Category: Medical Qualifiers: Diabetes mellitus adjunct faculty for medical terminology insulin use: with adjunct faculty for medical terminology use Qualified Code(s): E11.65 - Type 2 diabetes mellitus with hyperglycemia; Z79.4 - detention (current) use of insulin Plan: Decrease the amount of carbohydrate intake, pasta, bread, rice and potatoes are all sugar and that is aside from all the sweet stuff, remember that fruits are good but they are Sweet also. Hemoglobin A1c goal of less than 6.5. Patient is on Farxiga 10 mg once a day Lantus at 15 units once a day metformin a 1000 mg twice a day (4) Hypertension: Code(s): I10 - Essential (primary) hypertension Category: Medical Qualifiers: Hypertension type: essential hypertension Qualified Code(s): I10 - Essential (primary) hypertension Plan: Continue with blood pressure medication. Decrease salt intake and exercise takes metoprolol 50 mg once a day losartan 25 mg once a day isosorbide mononitrate 30 mg once a day (5) Hypothyroidism: Code(s): E03.9 - Hypothyroidism, unspecified Category: Medical Qualifiers: Hypothyroidism type: acquired Qualified Code(s): E03.9 - Hypothyroidism, unspecified Plan: Patient needs to have the TSH followed up on levothyroxine 150 mg mcg once a day (6) Hypercholesterolemia: Code(s): E78.00 - Pure hypercholesterolemia, unspecified Category: Medical Plan: Avoid fried foods, chicken skin, eggs, butter margarine, pastries and meat. Be it pork or beef they have a lot of cholesterol question of cholesterol medication (7) Dermatomyositis: Code(s): M33.13 - Other dermatomyositis without myopathy Category: Medical Plan: Continue to follow-up with Rheumatology has been receiving IVIG (8) GERD (gastroesophageal reflux disease): Code(s): K21.9 - Gastro-esophageal reflux disease without esophagitis Category: Medical Plan History of Present Illness The patient is a 64-year-old female presenting with a follow-up for multiple chronic conditions including essential hypertension, hypothyroidism, diabetes mellitus, gastroesophageal reflux disease (GERD), and coronary artery disease. Her dermatomyositis is being managed with IVIG and prednisone which she reports as helpful. Recently, she experienced chest pains leading to an ER visit, with investigations ruling out myocardial infarction. Her recent anemia, with hemoglobin marked at 11.7 g/dL, contributes to her symptoms of fatigue. Recent bloodwork shows her diabetes is suboptimally controlled with hemoglobin A1c at 7.9, and blood glucose levels frequently over 300 mg/dL. She maintains a regimen of Farxiga, Metformin, and Lantus to manage her diabetes and follows dietary guidelines to lower her sugar intake. Elevated liver function tests and LDL of 99 mg/dL were noted, along with an elevated TSH, suggesting possible hypothyroidism under-treatment. Health Maintenance - Encouraging regular exercise; patient reports improvement in daily activity - Discussion on dietary management for diabetes and cardiovascular health - Monitoring and adjusting medications based on bloodwork and symptoms - Regular monitoring of hemoglobin A1c for diabetes management - Routine TSH level monitoring for optimal thyroid management Social History - Increased physical activity; patient reports walking more around the house - Dietary considerations include monitoring intake of high-sugar foods and preference for cheese and tuna Review of Systems - Cardiovascular: Reports chest pain, no current heart attack symptoms - Endocrine: Reports difficulty in managing blood glucose levels - Musculoskeletal: Continued management of dermatomyositis Physical Exam Results - Labs: Hemoglobin 11.7 g/dL, Blood glucose 300 mg/dL, Hemoglobin A1c 7.9, Elevated liver function tests, LDL 99 mg/dL, Elevated TSH Plan Management of essential hypertension involves Metoprolol and Losartan based on patient?s blood pressure control. Hypothyroidism treatment with levothyroxine will continue with TSH monitoring due to current elevation levels. Diabetes management utilizes Farxiga, Lantus, and Metformin to reduce the patient?s A1c and control elevated blood glucose levels, alongside dietary modifications to reduce carbohydrate and sugar intake. GERD is managed through an ongoing antacid regimen. Coronary artery disease management includes aspirin and consideration of additional lipid-lowering therapy depending on LDL results. Dermatomyositis is managed with current IVIG and prednisone treatment. Anemia will be monitored and addressed if symptomatic. Patient was informed and verbally consented to the use of an ambient scribe for clinic note documentation during this visit. Discussion Notes I discussed the continuation and adjustment of current medications, including hypertension and hypothyroidism medications, depending on ongoing lab surveillance. For diabetes, we focused on better blood sugar control strategies, emphasizing dietary changes and planned medication adherence to achieve an A1c below the recommended threshold. For dermatomyositis, recent treatments including IVIG were discussed, and the positive outcomes were noted. Anemia will be monitored with the possibility of treatment adjustments. I included detailed explanations of each disease process management, potential side effects, and the necessity of monitoring specific lab parameters to optimize management. Patient Instructions - Continue current prescribed medications as discussed - Monitor blood sugar levels before meals - Follow dietary modifications to reduce sugar and carbohydrate intake - Continue daily physical activity and keep increasing gradually - Report any new or worsening symptoms immediately - Confirm medication refills with the pharmacy - Ensure TSH and hemoglobin A1C are checked routinely - Maintain scheduled follow-ups with rheumatology and primary care Medications: New evolocumab (Repathamina Juan) 140 mg subcut Q2W 2 mL 0RF pantoprazole 20 mg PO DAILY 90 tabs 2RF K21.9 - Gastro-esophageal reflux disease without esophagitis
--- OUTSIDE RECORDS SUMMARY | 2025-04-06 14:33 | XMS_ITS | Encounter Summary ---
Author Organization [employer] Address [address] [place] [address] Care Team Providers Care Security Auditor Name Role Phone Unavailable Primary Care Provider Unavailabl e Reason for Visit * Reason Comments Med Refill Encounter Details Date Type Department Care Team ([facility] st Contact Info) Description 06/17/2024 Refill [facility] [address] [place] [address] Kimberley Cunningham FNP [address] [place] [address] Other hyperlipidemia; Type 2 diabetes mellitus with [...]
--- OUTSIDE RECORDS SUMMARY | 2025-04-06 14:33 | XMS_ITS | Clinical Summary ---
Author Organization [facility] Address [address] [facility] [address] [place] [address] [place] [id number] Care Team Providers Care Gunner Mate Name Role Phone Zaria Milan MD Primary Care Provider Encounters Date Type Department Care Team Description 03/11/2025 Telephone [facility] [address] [place] [address] Siomara Howell from Last 3 [...] patient's age to complete this topic Insurance [facility] Medicaid Care Teams Gunner Mate Relationship Specialty Start Date End Date Zaria Milan MD [address] [place], [place] PCP - General Internal Medicine 02/16/25
--- OUTSIDE RECORDS SUMMARY | 2025-04-06 14:33 | XMS_ITS | Encounter Summary ---
Author Organization [employer] Address [address] [place] [address] Care Team Providers Care Technical Architect Name Role Phone Unavailable Primary Care Provider Unavailabl e Reason for Visit * Reason Comments Med Refill Encounter Details Date Type Department Care Team ([facility] st Contact Info) Description 09/10/2024 Refill [facility] [address] [place], [place] [phone] Kimberley Cunningham, EILEEN [address] [place], [place] [phone] Depressive disorder Social History Tobacco Use Types [...] the past 12 months, has t he [employer], [employer], oil or water [employer] threatened to shut off services in your [...]
--- OUTSIDE RECORDS SUMMARY | 2025-04-06 14:33 | XMS_ITS | Encounter Summary ---
Author Organization [employer] Address [address] [place] [address] Care Team Providers Care Paint Laboratory Technician Name Role Phone Unavailable Primary Care Provider Unavailabl e Reason for Visit * Reason Comments Med Refill Encounter Details Date Type Department Care Team ([facility] st Contact Info) Description 08/12/2024 Refill [facility] [address] [place] [address] Kimberley Cunningham FNP [address] [place] [address] Vitamin D insufficiency Social History Tobacco Use [...]
--- OUTSIDE RECORDS SUMMARY | 2025-04-06 14:33 | XMS_ITS | Encounter Summary ---
Author Organization [employer] Address [address] [place] [address] Care Team Providers Care Residential Direct Support Professional Name Role Phone Unavailable Primary Care Provider Unavailabl e Reason for Visit * Reason Comments Med Refill Encounter Details Date Type Department Care Team ([facility] st Contact Info) Description 05/20/2024 Refill [facility] [address] [place] [address] Kimberley Cunningham FNP [address] [place] [address] Primary hypertension Social History Tobacco Use Types [...]
--- OUTSIDE RECORDS SUMMARY | 2025-04-06 14:33 | XMS_ITS | Encounter Summary ---
Author Organization [employer] Address [address] [place] [address] Care Team Providers Care Computer Software Engineer Name Role Phone Unavailable Primary Care Provider Unavailabl e Reason for Visit * Reason Comments Med Refill Encounter Details Date Type Department Care Team ([facility] st Contact Info) Description 10/13/2024 Refill [facility]EDS [address] [place], [place] [phone] Kimberley Cunningham FNP [address] [place], [place] [phone] Type 2 diabetes mellitus without complication, with long-term current use of insulin ([facility]) Social History Tobacco Use [...] with long-term current use of insulin ([facility]) documented in this encounter Additional Health Concerns Assessment Noted Time PHQ-9 Depression Total Score: 2 01/09/20 23 9:19 AM EST documented as of this encounter
--- OUTSIDE RECORDS SUMMARY | 2025-04-06 14:33 | XMS_ITS | Encounter Summary ---
Author Organization [employer] Address [address] [place] [address] Care Team Providers Care Leadite Heater Name Role Phone Unavailable Primary Care Provider Unavailabl e Reason for Visit * Reason Comments Med Refill Encounter Details Date Type Department Care Team ([facility] st Contact Info) Description 01/16/2025 Refill [facility] [address] [place] [address] Kimberley Cunningham FNP [address] [place] [address] Type 2 diabetes mellitus with hyperglycemia ([facility]) Social History Tobacco Use Types Packs/Day Years [...] t he electric, gas, oil or water [employer] threatened to shut off services in your [...]
--- OUTSIDE RECORDS SUMMARY | 2025-04-06 14:33 | XMS_ITS | Clinical Summary ---
Author Organization [employer] Address [address] [facility] 7t [place] [address] Care Team Providers Care Cnc Operator Name Role Phone Unavailable Primary Care [...] e 2 diabetes mellitus treated with insulin ([facility]/HCC) INJECT 8 UNITS SUBCUTANEOUSLY ONCE DAILY IN THE EVENING 15 mL 3 11/01/20 23 Active linaGLIPtin (Tradjenta) 5 MG tabletIndications: Type 2 diabetes mellitus without complication, with long-term current use of insulin ([facility]) TAKE 1 TABLET BY MOUTH [...] 10 MGIndications:Type 2 diabetes mellitus with hyperglycemia (CMS/[facility]) TAKE 1 TABLET BY MOUTH [...] complication, with long-term current use of insulin ([facility]) TAKE 1 TABLET BY MOUTH TWICE DAILY AT NOON AND IN THE EVENING 180 tablet 1 03/20/20 24 Active lisinopril 20 MG tabletIndications: Primary hypertension TAKE 1 TABLET BY MOUTH AT BEDTIME 90 tablet 2 05/22/20 24 Active FREESTYLE LITE test stripIndications:T ype 2 diabetes mellitus with hyperglycemia (CMS/HCC) TEST BLOOD SUGAR 3 TIMES A DAY [...] -Pt in the process of re-establishing with [facility] Endo -Per last available consult [...] Type Department Care Team Description 01/16/2025 Refill [facility] [address] [place] [address] Phalen, Kimberley, HOSE SEAMER Type 2 diabetes mellitus with hyperglycemia ([facility]/HCC) 01/12/2025 Refill [facility] [address] [place], [place] [phone] Kimberley Cunningham, HOSE SEAMER Type 2 diabetes mellitus with hyperglycemia ([facility]) from Last 3 Months Immunizations [...] Pap Smear 03/14/2024 03/14/2019 Diabetes: Hemoglobin A1C 05/01/20242 024, 12/25/2022, 07/13/2021, Additional history exists COVID-19 [...] complication, with long-term current use of insulin ([facility]) MAMMOGRAM GENERIC Routine 10/05/2022 10: [...] Legacy Procedure: Mammography Report 1 Kimberley Cunningham HOSE SEAMER IMG BI PROCEDURES Final Result * LIPID [...] ?? Jesús ROBERTS et al. KORTNEY. 2013;310(19): 6091-4296 ?? (http://education.SMS Assist.Flashpoint/faq/HZY403) Non-HDL Cholesterol 87 <130 mg/dL (calc) CONVERTED [...] AM EDT) Creatinine Urine 30.03 mg/dL [facility] Microalbum/Creati nine Ratio Ur TNP ug/mg cr [facility] Comment: Unable to calculate albumin/creatinine ratio due to low microalbumin or creatinine result. Microalbumin Urine <5.0 mg/L [facility] 07/13/2021 10:4 0 AM EDT Historical Provider HISTORICAL/NON ORDERABLE LABS Final Result Performing Organization Address City/[facility]/ZIP Co de Phone Number [facility] [address] * Pap Smear (03/14/2019) Pap Negative [...] Most Recently Relevant to Health Maintenance Insurance [facility] MEDICAID STAND ADULT
--- OUTSIDE RECORDS SUMMARY | 2025-04-06 14:33 | XMS_ITS | Encounter Summary ---
Author Organization [employer] Address [address] [facility] [address] 7t [place] [address] Care Team Providers Care Lunchroom Monitor Name Role Phone Unavailable Primary Care Provider Unavailabl e Reason for Visit * Reason Comments Med Refill Encounter Details Date Type Department Care Team ([facility] st Contact Info) Description 05/21/2024 Refill [facility] [address] [place] [address] Kimberley Cunningham FNP [address] [place] [address] Primary hypertension Social History Tobacco Use Types [...]
--- OUTSIDE RECORDS SUMMARY | 2025-04-06 14:34 | XMS_ITS | Encounter Summary ---
Author Organization [employer] Address [address] 7t [place] [address] Care Team Providers Care Turbine Engineer Name Role Phone Unavailable Primary Care Provider Unavailabl e Reason for Visit * Reason Comments Med Refill Encounter Details Date Type Department Care Team ([facility] st Contact Info) Description 08/15/2024 Refill [facility] [address] [place], [place] [phone] Kimbreley Cunningham, CARDIAC TECHNICIAN [address] [place], [place] [phone] Hypothyroidism, unspecified type Social History Tobacco Use [...]
--- OUTSIDE RECORDS SUMMARY | 2025-04-06 14:34 | XMS_ITS | Encounter Summary ---
Author Organization [employer] Address [address] [facility] 7t [place] [address] Care Team Providers Care Pulley Man Name Role Phone Kimberley Cunningham Primary Care Provider Encounter Details Date Type Department Care Team (Latest Contact Info) Description 01/07/2020 Abstract [facility] CONVERSIONS Dental, Provider, DDS Social History Tobacco [...] on filedocumented in this encounter Care Teams Pulley Man Relationship Specialty Start Date End Date Kimberley Cunningham FNP [address] [place] [address] PCP - General Family Medicine 07/23/22 03/20/24 documented as of this encounter
--- OUTSIDE RECORDS SUMMARY | 2025-04-06 14:34 | XMS_ITS | Encounter Summary ---
Author Organization [employer] Address [address] [facility] [address] 7t [place] [address] Care Team Providers Care Director Of Optimization Name Role Phone Kimberley Cunningham [employer] Primary Care Provider [phone] Encounter Details Date Type Department Care Team ([facility] st Contact Info) Description 10/12/2023 Abstract [facility] MED[facility]INE [address] [place], [place] [phone] Sandra Villareal Social History Tobacco Use Types [...] Procedure Name Priority Date/Time Associated Diagnosis Comments HM COLONOSCOPY Routine 10/22/2017 documented in this encounter [...] documented as of this encounter Care Teams Director Of Optimization Relationship Specialty Start Date End Date Kimberley Cunningham FNP [address] [place] [address] PCP - General Family Medicine 07/23/22 03/20/24 documented as of this encounter
--- OUTSIDE RECORDS SUMMARY | 2025-04-06 14:34 | XMS_ITS | Encounter Summary ---
Author Organization [employer] Address [address] [facility] 7t [place] [address] Care Team Providers Care Obstetrician Gynecologist Name Role Phone Kimberley Cunningham EILEEN Primary Care Provider [phone] Reason for Visit * Reason Comments Med Refill Encounter Details Date Type Department Care Team ([facility] st Contact Info) Description 09/08/2023 Refill [facility]INE [address] [place] [address] Jojo Washburn MD [address] [employer], [place] [phone] Depressive disorder Social History Tobacco Use Types [...] documented as of this encounter Care Teams Obstetrician Gynecologist Relationship Specialty Start Date End Date Kimberley Cunningham FNP [address] [place] [address] PCP - General Family Medicine 07/23/22 03/20/24 documented as of this encounter
--- OUTSIDE RECORDS SUMMARY | 2025-04-06 14:34 | XMS_ITS | Encounter Summary ---
Author Organization [employer] Address [address] 7t [place] [address] Care Team Providers Care Trauma Doctor Name Role Phone Unavailable Primary Care Provider Unavailabl e Reason for Visit * Reason Comments Med Refill Encounter Details Date Type Department Care Team ([facility] st Contact Info) Description 01/12/2025 Refill [facility] [address] [place] [address] Kimberley Cunningham FNP [address] [place] [address] Type 2 diabetes mellitus with hyperglycemia ([facility]/HCC) Social History Tobacco Use Types Packs/Day [...] t he electric, gas, oil or water [employer] threatened to shut off services in your [...]
--- OUTSIDE RECORDS SUMMARY | 2025-04-06 14:34 | XMS_ITS | Encounter Summary ---
Author Organization [employer] Address [address] [facility] [address] 7t [place] [address] Care Team Providers Care First Mate Name Role Phone Unavailable Primary Care Provider Unavailabl e Reason for Visit * Reason Comments Med Refill Encounter Details Date Type Department Care Team ([facility] st Contact Info) Description 11/13/2024 Refill [facility] 230 [place] [address] Kimberley Cunningham FNP [address] [place] [address] Type 2 diabetes mellitus without complication, with long-term current use of insulin ([facility]) Social History Tobacco Use Types [...] complication, with long-term current use of insulin ([facility]) documented in this encounter Additional Health Concerns Assessment Noted Time PHQ-9 Depression Total Score: 2 01/09/20 23 9:19 AM EST documented as of this encounter
--- OUTSIDE RECORDS SUMMARY | 2025-04-06 14:34 | XMS_ITS | Encounter Summary ---
Author Organization [employer] Address 75 [facility] 7t [place] [address] Care Team Providers Care Technology Sales Specialist Name Role Phone Kimberley Cunningham Primary Care Provider [phone] Encounter Details Date Type Department Care Team (Latest Contact Info) Description 01/20/2021 Abstract [facility] CONVERSIONS Dental, Provider, DDS Social History [...] on filedocumented in this encounter Care Teams Technology Sales Specialist Relationship Specialty Start Date End Date Kimberley Cunningham FNP [address] [place] [address] PCP - General Family Medicine 07/23/22 03/20/24 documented as of this encounter
--- OUTSIDE RECORDS SUMMARY | 2025-04-06 14:34 | XMS_ITS | Encounter Summary ---
Author Organization [employer] Address [address] [facility] 7t [place] [address] Care Team Providers Care Epic Cupid Analyst Name Role Phone Kimberley Cunningham Primary Care Provider [phone] Reason for Visit * Reason Comments Med Refill Encounter Details Date Type Department Care Team ([facility] st Contact Info) Description 07/26/2023 Refill [facility] [address] [place] [address] Kimberley Cunningham FNP [address] [place] [address] Depressive disorder Social History Tobacco Use Types [...] documented as of this encounter Care Teams Epic Cupid Analyst Relationship Specialty Start Date End Date Kimberley Cunningham FNP [address] [place] [address] PCP - General Family Medicine 07/23/22 03/20/24 documented as of this encounter
== END 2025-04-06 15:34 | disposition home or self-care (01) ==
LOC: HO.HMCH 14:20
PROVIDERS: PCP Internal Medicine; Visit Provider Internal Medicine
DX: E11.65 Type 2 diabetes mellitus with hyperglycemia (principal); Z79.4 Long term (current) use of insulin; M33.13 Other dermatomyositis without myopathy; I25.10 Atherosclerotic heart disease of native coronary artery without angina pectoris; K21.9 Gastro-esophageal reflux disease without esophagitis; I10 Essential (primary) hypertension; E03.9 Hypothyroidism, unspecified; E78.00 Pure hypercholesterolemia, unspecified

== ENCOUNTER → 2025-04-06 14:19 | Outpatient (BNVA) | payer OTHER, SELFPAY | PROVIDERS: PCP Internal Medicine; Visit Provider Internal Medicine | DX: I25.10 Atherosclerotic heart disease of native coronary artery without angina pectoris (principal); K21.9 Gastro-esophageal reflux disease without esophagitis; E11.65 Type 2 diabetes mellitus with hyperglycemia; I10 Essential (primary) hypertension; E03.9 Hypothyroidism, unspecified; E78.00 Pure hypercholesterolemia, unspecified; M33.13 Other dermatomyositis without myopathy; Z79.4 Long term (current) use of insulin | CPT/HCPCS: 99212 ==

== ENCOUNTER 2025-04-10 14:08 | Outpatient (REF) | payer OTHER, SELFPAY ==
--- OUTSIDE RECORDS SUMMARY | 2025-04-10 14:10 | XMS_ITS | Clinical Summary ---
Author Organization [employer] Address [address] [facility] 7t [place] [address] Care Team Providers Care Property Economist Name Role Phone Unavailable Primary Care Provider [...] e 2 diabetes mellitus treated with insulin ([facility]/HCC) INJECT 8 UNITS SUBCUTANEOUSLY ONCE DAILY IN THE EVENING 15 mL 3 11/01/20 23 Active linaGLIPtin (Tradjenta) 5 MG tabletIndications: Type 2 diabetes mellitus without complication, with long-term current use of insulin ([facility]) TAKE 1 TABLET BY MOUTH EVERYDAY AT [...] 10 MGIndications:Type 2 diabetes mellitus with hyperglycemia (CMS/[facility]) TAKE 1 TABLET BY MOUTH EVERYDAY AT [...] complication, with long-term current use of insulin ([facility]) TAKE 1 TABLET BY MOUTH TWICE DAILY [...] the process of re-establishing with [facility] End[facility] -Per last available consult note: -CONT [...] Type Department Care Team Description 01/16/2025 Refill [facility] MED[facility]INE [address] [place] [address] Phalen, Kimberley, PARTS LISTER Type 2 diabetes mellitus with hyperglycemia ([facility]/HCC) 01/12/2025 Refill [facility] [address] [place], [place] [phone] Kimberley Cunningham, PARTS LISTER Type 2 diabetes mellitus with hyperglycemia ([facility]) from Last 3 Months Immunizations Immunization Administration Dates Next Due Hep B, adult [...] patient's age to complete this topic Meningococcal B Vaccine Aged Out No l onger eligible based on patient's age to complete [...] complication, with long-term current use of insulin ([facility]) MAMMOGRAM GENERIC Routine 10/05/2022 10: 20 AM [...] Legacy Procedure: Mammography Report 1 Kimberley Cunningham PARTS LISTER IMG BI PROCEDURES Final Result * LIPID [...] the ?? estimation of LDL-C. ?? Jesús SS et al. KORTNEY. 2013;310(19): 6480-4668 ?? (http://education.Gigathlete/faq/SSU219) Non-HDL Cholesterol 87 <130 mg/dL (calc) [facility] Comment: For patients with diabetes plus 1 major ASCVD risk ?? factor, treating to a non-HDL-C goal of <100 mg/dL ?? (LDL-C of <70 mg/dL) is considered a therapeutic ?? option. Triglycerides 91 <150 mg/dL [facility] 10/04/2022 8:50 AM EST Kimberley Cunningham [facility] BLOOD ORDERABLES Final Res ult Performing Organization Address City/[facility] Co de Phone Number [facility] * MICROALBUMIN, RANDOM (07/13/2021 10:40 AM EDT) Creatinine Urine 30.03 mg/dL [facility] Microalbum/Creati nine Ratio Ur TNP ug/mg cr [facility] Comment: Unable to calculate albumin/creatinine ratio due to low microalbumin or creatinine result. Microalbumin Urine <5.0 mg/L [facility] 07/13/2021 10:4 0 AM EDT Historical Provider HISTORICAL/NON ORDERABLE LABS Final Result Performing Organization Address City/[facility] de Phone Number [facility] [address] * Pap Smear (03/14/2019) Pap Negative [...] Most Recently Relevant to Health Maintenance Insurance [facility] MEDICAID STAND ADULT
--- OUTSIDE RECORDS SUMMARY | 2025-04-10 14:10 | XMS_ITS | Encounter Summary ---
Author Organization [employer] Address [address] [facility] [address] 7t [place] [address] Care Team Providers Care College Or University Business Manager Name Role Phone Unavailable Primary Care Provider Unavailabl e Reason for Visit * Reason Comments Med Refill Encounter Details Date Type Department Care Team ([facility] st Contact Info) Description 05/20/2024 Refill [facility] MED[facility]INE [address] [place] [address] Kimberley Cunningham FNP [address] [place] [address] Primary hypertension Social History Tobacco Use Types [...]
--- OUTSIDE RECORDS SUMMARY | 2025-04-10 14:10 | XMS_ITS | Encounter Summary ---
Author Organization [employer] Address [address] [facility] [address] 7t [place] [address] Care Team Providers Care Water Purification Chemist Name Role Phone Unavailable Primary Care Provider Unavailabl e Reason for Visit * Reason Comments Med Refill Encounter Details Date Type Department Care Team ([facility] st Contact Info) Description 09/10/2024 Refill [facility]S [address] [place], [place] [phone] Kimberley Cunningham, EILEEN [address] [place], [place] [phone] Depressive disorder Social History Tobacco Use Types [...] the past 12 months, has t he Moneyspy[employer], [employer], oil or water [employer] threatened to shut off services in your [...]
--- OUTSIDE RECORDS SUMMARY | 2025-04-10 14:10 | XMS_ITS | Encounter Summary ---
Author Organization [employer] Address [address] [facility] 7t [place] [address] Care Team Providers Care Exit Booth Agent Name Role Phone Kimberley Cunningham Primary Care Provider [phone] Encounter Details Date Type Department Care Team (Latest Contact Info) Description 01/07/2020 Abstract [facility] CONVERSION[facility] Dental, Provider, DDS Social History [...] on filedocumented in this encounter Care Teams Exit Booth Agent Relationship Specialty Start Date End Date Kimberley Cunningham FNP [address] [place] [address] PCP - General Family Medicine 07/23/22 03/20/24 documented as of this encounter
--- OUTSIDE RECORDS SUMMARY | 2025-04-10 14:10 | XMS_ITS | Encounter Summary ---
Author Organization [employer] Address [address] [facility] [facility] [address] [place] [address] Care Team Providers Care Production Tool Engineer Name Role Phone Kimberley Cunningham DRYER FEEDER Primary Care Provider [phone] Encounter Details Date Type Department Care Team ([facility] st Contact Info) Description 10/12/2023 Abstract [facility] MEDICINE [address] [place], [place] [phone] Sandra Villareal Social History Tobacco Use Types [...] documented as of this encounter Care Teams Production Tool Engineer Relationship Specialty Start Date End Date Kimberley Cunningham FNP [address] [place] [address] PCP - General Family Medicine 07/23/22 03/20/24 documented as of this encounter
--- OUTSIDE RECORDS SUMMARY | 2025-04-10 14:10 | XMS_ITS | Encounter Summary ---
Author Organization [employer] Address [address] [facility] [address]t [place] [address] Care Team Providers Care Front Desk Specialist Name Role Phone Unavailable Primary Care Provider Unavailabl e Reason for Visit * Reason Comments Med Refill Encounter Details Date Type Department Care Team ([facility] st Contact Info) Description 01/16/2025 Refill [facility] MEDICINE [address] [place] [address] Kimberley Cunningham FNP [address] [place] [address] Type 2 diabetes mellitus with hyperglycemia ([facility]/HCC) Social History Tobacco Use Types Packs/Day Years [...] t he electric, gas, oil or water [employer] threatened to shut off services in your [...]
--- OUTSIDE RECORDS SUMMARY | 2025-04-10 14:10 | XMS_ITS | Encounter Summary ---
Author Organization [employer] Address [address] [facility] [address] [address] 7t [place] [address] Care Team Providers Care Ceramic Engineering Professor Name Role Phone Unavailable Primary Care Provider Unavailabl e Reason for Visit * Reason Comments Med Refill Encounter Details Date Type Department Care Team ([facility] st Contact Info) Description 05/21/2024 Refill [facility] MEDICINE [address] [place] [address] Kimberley Cunningham FNP [address] [place] [address] Primary hypertension Social History Tobacco Use Types [...]
--- OUTSIDE RECORDS SUMMARY | 2025-04-10 14:10 | XMS_ITS | Clinical Summary ---
Author Organization [facility] Address [address] [facility] [address] [place] [address] Care Team Providers Care Geriatric Social Worker Name Role Phone Zaria Milan MD Primary Care Provider [phone] Encounters Date Type Department Care Team Description 03/11/2025 Telephone [facility] [address] [place] [address] Siomara Howell from Last 3 [...] patient's age to complete this topic Insurance [facility] Medicaid Care Teams Geriatric Social Worker Relationship Specialty Start Date End Date Zaria Milan MD [address] [place], [place] PCP - General Internal Medicine 02/16/25
--- OUTSIDE RECORDS SUMMARY | 2025-04-10 14:10 | XMS_ITS | Encounter Summary ---
Author Organization [employer] Address [address] [facility] [facility] [address] 7t [place] [address] Care Team Providers Care Commercial Real Estate Appraiser Name Role Phone Unavailable Primary Care Provider Unavailabl e Reason for Visit * Reason Comments Med Refill Encounter Details Date Type Department Care Team ([facility] st Contact Info) Description 11/13/2024 Refill [facility] [address] [place] [address] Kimberley Cunningham FNP [address] [place] [address] Type 2 diabetes mellitus without complication, with long-term current use of insulin ([facility]) Social History Tobacco Use Types Packs/Day Years [...] complication, with long-term current use of insulin ([facility]) documented in this encounter Additional Health Concerns Assessment Noted Time PHQ-9 Depression Total Score: 2 01/09/20 23 9:19 AM EST documented as of this encounter
--- OUTSIDE RECORDS SUMMARY | 2025-04-10 14:10 | XMS_ITS | Encounter Summary ---
Author Organization [employer] Address [address] [facility] 7t [place] [address] Care Team Providers Care Flame Annealing Machine Setter Name Role Phone Kimberley Cunningham EILEEN Primary Care Provider [phone] Reason for Visit * Reason Comments Med Refill Encounter Details Date Type Department Care Team ([facility] st Contact Info) Description 09/08/2023 Refill [facility] MEDICINE [address] [place], [place] [phone] Jojo Washburn MD [address] [place], [place] [phone] Depressive disorder Social History Tobacco Use Types [...] documented as of this encounter Care Teams Flame Annealing Machine Setter Relationship Specialty Start Date End Date Kimberley Cunningham FNP [address] [place] [address] PCP - General Family Medicine 07/23/22 03/20/24 documented as of this encounter
--- OUTSIDE RECORDS SUMMARY | 2025-04-10 14:10 | XMS_ITS | Encounter Summary ---
Author Organization [employer] Address [address] [facility] [address] [place] [address] Care Team Providers Care Maintenance Engineer Name Role Phone Unavailable Primary Care Provider Unavailabl e Reason for Visit * Reason Comments Med Refill Encounter Details Date Type Department Care Team ([facility] st Contact Info) Description 08/15/2024 Refill [facility] PEDS [address] [place], [place] [phone] Kimberley Cunningham, BAKER CHEF [address] [place], [place] [phone] Hypothyroidism, unspecified type Social History Tobacco Use [...]
--- OUTSIDE RECORDS SUMMARY | 2025-04-10 14:10 | XMS_ITS | Encounter Summary ---
Author Organization [employer] Address [address] [facility] 7t [place] [address] Care Team Providers Care Rags Laborer Name Role Phone Kimberley Cunningham Primary Care Provider [phone] Reason for Visit * Reason Comments Med Refill Encounter Details Date Type Department Care Team ([facility] st Contact Info) Description 07/26/2023 Refill [facility] MEDICINE [address] [place] [address] Kimberley Cunningham FNP [address] [place] [address] Depressive disorder Social History Tobacco Use Types [...] documented as of this encounter Care Teams Rags Laborer Relationship Specialty Start Date End Date Kimberley Cunningham FNP [address] [place] [address] PCP - General Family Medicine 07/23/22 03/20/24 documented as of this encounter
--- OUTSIDE RECORDS SUMMARY | 2025-04-10 14:10 | XMS_ITS | Encounter Summary ---
Author Organization [employer] Address [address] [place] [address] Care Team Providers Care Charter Pilot Name Role Phone Unavailable Primary Care Provider Unavailabl e Reason for Visit * Reason Comments Med Refill Encounter Details Date Type Department Care Team ([facility] st Contact Info) Description 06/17/2024 Refill [facility] [address] [place] [address] Kimberley Cunningham FNP [address] [place] [address] Other hyperlipidemia; Type 2 diabetes mellitus with [...]
--- OUTSIDE RECORDS SUMMARY | 2025-04-10 14:10 | XMS_ITS | Encounter Summary ---
Author Organization [employer] Address [address] [facility] [address] [place] [address] Care Team Providers Care Production Operations Inspector Name Role Phone Unavailable Primary Care Provider Unavailabl e Reason for Visit * Reason Comments Med Refill Encounter Details Date Type Department Care Team ([facility] st Contact Info) Description 01/12/2025 Refill [facility] MEDICINE [address] [place] [address] Kimberley Cunningham FNP [address] [place] [address] Type 2 diabetes mellitus with hyperglycemia ([facility]/HCC) Social History Tobacco Use Types Packs/Day [...] t he electric, gas, oil or water [employer] threatened to shut off services in your [...]
--- OUTSIDE RECORDS SUMMARY | 2025-04-10 14:10 | XMS_ITS | Encounter Summary ---
Author Organization [employer] Address [address] [facility] [address] [place] [address] Care Team Providers Care Depilatory Painter Name Role Phone Kimberley Cunningham Primary Care Provider [phone] Encounter Details Date Type Department Care Team (Latest Contact Info) Description 01/20/[address] [facility] CONVERSIONS Dental, Provider, DDS Social History [...] on filedocumented in this encounter Care Teams Depilatory Painter Relationship Specialty Start Date End Date Kimberley Cunningham FNP [address] [place] [address] PCP - General Family Medicine 07/23/22 03/20/24 documented as of this encounter
--- OUTSIDE RECORDS SUMMARY | 2025-04-10 14:10 | XMS_ITS | Encounter Summary ---
Author Organization [email or web address] Address [address] [facility] [address] [place] [address] Care Team Providers Care Verify Rep Name Role Phone Unavailable Primary Care Provider Unavailabl e Reason for Visit * Reason Comments Med Refill Encounter Details Date Type Department Care Team ([facility] st Contact Info) Description 10/13/2024 Refill [facility]S [address] [place], [place] [phone] Kimberley Cunningham FNP [address] [place], [place] [phone] Type 2 diabetes mellitus without complication, with long-term current use of insulin ([facility]) Social History Tobacco Use Types Packs/Day [...] current use of insulin ([facility]) documented in this encounter Additional Health Concerns Assessment Noted Time PHQ-9 Depression Total Score: 2 01/09/20 23 9:19 AM EST documented as of this encounter
--- OUTSIDE RECORDS SUMMARY | 2025-04-10 14:10 | XMS_ITS | Encounter Summary ---
Author Organization [employer] Address [address] [facility] [address] [place] [address] Care Team Providers Care Shake Splitter Name Role Phone Unavailable Primary Care Provider Unavailabl e Reason for Visit * Reason Comments Med Refill Encounter Details Date Type Department Care Team ([facility] st Contact Info) Description 08/12/2024 Refill [facility] MEDICINE [address] [place] [address] Kimberley Cunningham FNP [address] [place] [address] Vitamin D insufficiency Social History Tobacco Use [...]
[2025-04-10 14:42] LABS: Appearance Urine Clear; Color Urine Yellow; Glucose Urine UA >=1000 mg/dL (Negative); Leukocyte Esterase Urine Negative (Negative); Nitrite Urine Negative (Negative); PH 6.5 (5.0-9.0); UMIC TRIGGER UACC YES; Urine Blood Negative (Negative); Urine Ketones Negative (Negative); Urine Protein Negative (Neg-Trace)
[2025-04-10 14:49] LABS: Bacteria Urine None Seen (None Seen); Hyaline Casts Urine 0-2 /LPF (0-2); RBC Urine 0-2 /HPF (0-2); Squamous Epithelial Cell Urine 0-2 /HPF (0-2); WBC Urine 0-5 /HPF (0-5)
[2025-04-10 15:40] LABS: Creatinine Urine 10.29 mg/dL
[2025-04-10 15:50] LABS: Free T4 (Free Thyroxine) 1.09 ng/dL (0.71-1.85); Thyroid Stimulating Hormone 1.29 uIU/mL (0.32-4.0)
== END 2025-04-10 14:09 | disposition home or self-care (01) ==
LOC: HO.LAB 14:08
PROVIDERS: PCP Internal Medicine; Visit Provider Student in an Organized Health Care Education/Training Program
DX: E11.65 Type 2 diabetes mellitus with hyperglycemia (principal); Z03.89 Encounter for observation for other suspected diseases and conditions ruled out; E03.9 Hypothyroidism, unspecified; R30.0 Dysuria
CPT/HCPCS: 36415; 81001; 82570; 84439; 84443

== ENCOUNTER 2025-04-13 09:11 | Emergency (ER) | payer OTHER, SELFPAY ==
--- NOTE | ~2025-04-13 | CT_ITS ---
EXAMINATION: CT HEAD WITHOUT CONTRAST CLINICAL INFORMATION: R sided [place] R eye blurry vision/pain COMPARISON: August 08, 2024. TECHNIQUE: Contiguous axial imaging was performed from the skull base to vertex without intravenous administration of contrast. This CT examination was performed using dose optimization techniques as appropriate, variously including the following: *Automated exposure control *Adjustment of mA and/or kV according to patient size (this includes techniques or standardized protocols for targeted exams where dose is matched to indication/reason for exam; i.e. extremities or head) *Use of iterative reconstruction technique DLP: 562 mGy-cm FINDINGS: No acute intracranial hemorrhage, mass effect, midline shift, hydrocephalus or herniation. Luna-white matter differentiation is normal. 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 Craniocervical junction demonstrates normal position of the cerebellar tonsils. No air-fluid levels in the paranasal sinuses. Tympanic cavities and mastoid cells are aerated. Punctate calcifications in the palatine tonsils likely tonsilliths. CT/CT head/brain wo IV con IMPRESSION: No acute intracranial hemorrhage or acute brain abnormality by CT. Stable brain. Electronically signed by: Uri Perla MD 04/13/2025 01:53 PM EDT
--- NOTE | ~2025-04-13 | XR_ITS ---
EXAMINATION: XR CHEST 2 VIEWS HISTORY: cp COMPARISON: Comparison is made with the prior examination dated 02/04/2025. FINDINGS: PA and lateral views of the chest are submitted. The lungs are expanded and clear. There is no pleural effusion, pneumothorax, or pulmonary vascular congestion. The heart is normal in size. The bones are intact. XR/XR chest 2V IMPRESSION: No acute cardiopulmonary abnormality. Electronically signed by: Deepak Byers MD 04/13/2025 12:25 PM EDT
[2025-04-13 09:24] VITALS: BP 173/67; PULSE 72; RESP 18; TEMP 36.1; O2SAT 98; BMI 23.5
--- OUTSIDE RECORDS SUMMARY | 2025-04-13 09:57 | XMS_ITS | Clinical Summary ---
Author Organization [facility] Address [address] [facility] [address] [place] [address] [place] [id number] Care Team Providers Care Periodontist Name Role Phone Zaria Milan MD Primary Care Provider [phone] Encounters Date Type Department Care Team Description 03/11/2025 Telephone [facility] [address] [place] [address] Siomara Howell from Last 3 [...] patient's age to complete this topic Insurance [facility] Medicaid Care Teams Periodontist Relationship Specialty Start Date End Date Zaria Milan MD [address] [place], [place] PCP - General Internal Medicine 02/16/25
[2025-04-13 11:47] VITALS: BP 182/79; PULSE 76; RESP 18; TEMP 36.6; O2SAT 100
--- NOTE | 2025-04-13 11:52 | ED_ITS ---
HPI - Headache General Chief Complaint: Headache Stated Complaint: eye and head pain Time Seen by Provider: 04/13/25 11:51 Source: patient, RN notes reviewed and old records reviewed Mode of arrival: ambulatory History of Present Illness ED Provider: Antoinette Solis PA-C HPI Narrative: 64-year-old female Northern Irish-speaking with a past medical history of CAD, STEMI, GERD, HTN, hypothyroid, diabetes, presenting to the ED complaining of right- sided headache x3 days and right eye blurry vision & pain x last night. Denies headache or blurry vision at present. Wears glasses, denies wearing contacts. Also reports left-sided upper chest/shoulder pain x1.5 weeks. Denies injury, trauma, fall, abdominal pain, SOB, nausea/vomiting, numbness, tingling, weakness Related Data Home Medications ?Medication ?Instructions ?Recorded ?Confirmed blood glucose control high and low #1 ea 09/07/20 04/06/25 solution (FreeStyle Control solution) lancets 33 gauge (TRUEplus Lancets) #100 ea 11/29/23 04/06/25 melatonin 5 mg tablet mg PO 04/06/25 04/06/25 Previous Rx's ?Medication ?Instructions ?Recorded pen needle, diabetic 32 gauge x #100 ea 11/02/20 5/32 (BD Corin 2nd Gen Pen Needle) pen needle, diabetic 32 gauge x #100 ea 04/18/22 5/32 (BD Ultra-Fine Corin Pen Needle) lancets 28 gauge (FreeStyle #100 ea 11/29/23 Lancets) cholecalciferol (vitamin D3) 50 50 mcg PO DAILY #90 caps 08/26/24 mcg (2,000 unit) capsule blood pessure cuff #1 ea 11/28/24 blood sugar diagnostic (FreeStyle #100 ea 11/28/24 Lite Strips) blood-glucose meter (FreeStyle #1 ea 11/28/24 Lite Meter kit) metoprolol succinate 50 mg 50 mg PO DAILY #90 tabs 12/02/24 tablet,extended release 24 hr ticagrelor 90 mg tablet (Brilinta) 90 mg PO BID #60 tabs 12/12/24 ferrous sulfate 325 mg (65 mg 325 mg PO BID #60 tabs 12/15/24 iron) tablet insulin glargine 100 unit/mL (3 15 unit (0.15 mL) subcut DAILY 30 01/14/25 mL) subcutaneous pen (Lantus days #15 mL Solostar U-100 Insulin) pen needle, diabetic 32 gauge x #100 ea 01/14/25 (BD Ultra-Fine Corin Pen Needle) dapagliflozin propanediol 10 mg 10 mg PO DAILY #90 tabs 01/20/25 tablet (Farxiga) levothyroxine 150 mcg tablet 150 mcg PO DAILY@0600 #30 tabs 02/11/25 aspirin 81 mg tablet,delayed 81 mg PO DAILY #90 tabs 02/17/25 release (Adult Low Dose Aspirin) isosorbide mononitrate 30 mg 30 mg PO DAILY #90 tabs 02/17/25 tablet,extended release 24 hr melatonin 10 mg capsule 10 mg PO BEDTIME PRN sleep #30 caps 02/17/25 cane #1 ea 02/23/25 polyethylene glycol 3350 17 gram 17 g PO BID #100 ea 02/27/25 oral powder packet (Miralax) sodium,potassium,mag sulfates 17.5 See Rx Instructions PO .COMPLEX 03/02/25 gram-3.13 gram-1.6 gram oral soln #354 mL (Suprep Bowel Prep Kit) fluoxetine 10 mg capsule 10 mg PO DAILY #90 caps 03/10/25 losartan 25 mg tablet 25 mg PO DAILY #90 tabs 03/24/25 alprazolam 0.25 mg tablet 0.25 mg PO DAILY PRN anxiety #15 04/01/25 tabs evolocumab 140 mg/mL subcutaneous 140 mg subcut Q2W #2 mL 04/06/25 pen injector (Gela Juan) pantoprazole 20 mg tablet,delayed 20 mg PO DAILY #90 tabs 04/06/25 release metformin 1,000 mg tablet 1,000 mg PO BID #180 tabs 04/09/25 Allergies Allergy/AdvReac Type Severity Reaction Status Date / Time penicillin V Allergy Unknown hives Verified 04/13/25 09:28 Penicillins [PENICILLINS] Allergy Unknown RASH,DIZZIN Verified 04/13/25 09:28 ESS Review of Systems 2 Review of Systems: Yes all other systems are reviewed and are negative Constitutional: Constitutional: Reports as per HPI Neurologic: Denies Abnormal speech present PMFSH Past Medical History Attestation statement: The following information was validated with the patient. Source: old records reviewed Medical History Dermatomyositis Elevated CK CAD (coronary artery disease) STEMI (ST elevation myocardial infarction) GERD (gastroesophageal reflux disease) Physical exam, pre-employment Sebaceous cyst RUQ pain Cervical polyp Muscle strain of right scapular region H. 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 Father Diabetes Heart disease Mother Diabetes Hypertension Heart disease Brother Lung cancer Sister Heart disease Social History Social History Household Members: Family Housing: House Are you a primary janitor caretaker to a significant other at home: No Do you presently have visiting nurse or other home services: Yes Unable to assess alcohol history related to: Unknown Alcohol intake: never Patient Tobacco Use Status: Never used Tobacco Tobacco use type: Cigarette e-Cigarette/Vaping Use: Never Used Second Hand Smoke Exposure: No Advance Directives: No Advance Directives Information Provided: Yes service: No Current occupational status: employed and disabled 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 Cognitive needs: No Hearing needs: No Vision needs: No Physical Exam 2 Vital Signs: Vital Signs: Last Vital Signs Temp 98.1 F 04/13/25 14:07 Pulse 78 04/13/25 14:07 Resp 18 04/13/25 14:07 BP 137/66 04/13/25 14:07 Pulse Ox 98 04/13/25 14:07 O2 Del Method Room Air 04/13/25 14:07 BMI result Body Mass Index 23.5 Const: General: cooperative, healthy appearing, comfortable, no acute distress, alert and awake Orientation/consciousness: patient oriented x3 L imitations: no limitations HEENT: Head: Yes normal to inspection and Yes atraumatic Ears: hearing grossly normal bilaterally General nose exam: Normal external nose present Face and sinus: Yes normal facial exam Mouth: Normal oral and palatal mucosa present Throat: Yes posterior oropharynx normal, Yes tonsils normal, Yes uvula midline, No peritonsillar mass, No uvula laterally displaced and No uvular edema Eyes: Other: IOP 22 bilaterally. Fluorescein used without uptake. No abrasion or ulceration. No swelling General: appearance normal, both eyes and all related structures A lignment and Position: alignment normal Periorbital: periorbital findings normal Eyelids: Yes eyelids normal Conjunctivae: conjunctivae normal S clerae: sclerae normal Corneas: corneas normal Pupils: Equal, round and reactive pupils present EOM: EOMs intact bilaterally and no movement deficit Direct Ophthalmoscopy: normal light reflex and no photophobia Neck: Neck: Yes normal visual inspection and Yes no meningeal signs Resp: Effort & Inspection: normal respiratory effort and no respiratory distress Auscultation: clear to auscultation bilaterally, no crackles and no wheezes Cardio: Rate: regular rate Heart sounds: S1 normal heart sound present and S2 normal heart sound present GI: Inspection: Yes normal to inspection Palpation (GI): Soft to palpation, nontender, no guarding and not rigid Skin: Rashes: no rashes Wounds: no wounds Neuro: General: patient oriented x3, gait normal, tone normal, moves all extremities, no meningeal signs, no focal motor deficits and CN's II-XI intact bilaterally Cranial nerves: Yes CN's II-XII intact bilaterally, Yes Equal, round and reactive pupils present and Yes Bilaterally intact EOM present C ognition (Neuro): normal cognition Speech: No Abnormal speech present Gait exam (Neuro): Normal gait present Motor exam (neuro): 5/5 motor strength present throughout Extrem: General: Yes normal to inspection, Yes no pedal edema and Yes no calf tenderness Course Course Course Narrative: -1336--no significant leukocytosis, H/H stable. ESR mildly elevated to 38 > elevated priors. CRP wnl -AST/ALT chronically elevated -troponin 6.9 > will obtain 3 hour repeat -COVID/flu/RSV negative XR chest 2V IMPRESSION: No acute cardiopulmonary abnormality. -1456--repeat troponin without rise, mi unlikely CT head/brain wo IV con IMPRESSION: No acute intracranial hemorrhage or acute brain abnormality by CT. Stable brain. Results discussed with patient including worrisome signs and symptoms and strict return precautions, and when to return to the emergency department. They verbalized understanding and feel safe for discharge at this time. Medications Administered Discontinued Medications Generic Name Dose Route Start Last Admin Trade Name Alexsandra PRN Reason Stop Dose Admin Fluorescein Sodium 1 strip 04/13/25 11:53 04/13/25 11:58 Fluorescein Sodium Strip EYE-RIGHT 04/13/25 11:54 1 strip ONCE ONE Administration Tetracaine HCl 1 drop 04/13/25 11:53 04/13/25 11:58 Tetracaine Hcl/Pf 0.5% Oph Yolie 4 Ml Drops EYE-RIGHT 04/13/25 11:54 1 drop ONCE ONE Administration Medical Decision Making Medical Decision Making MDM Narrative: 64-year-old female Northern Irish-speaking with a past medical history of CAD, STEMI, GERD, HTN, hypothyroid, diabetes, presenting to the ED complaining of right- sided headache x3 days and right eye blurry vision & pain x last night, denies any headache or vision changes now. Also reports left-sided upper chest/shoulder pain x1.5 weeks. On exam vital signs stable, NAD, nontoxic appearing, fluorescein staining use without uptake, no evidence of preseptal or septal cellulitis, EOMs intact without entrapment. Lungs CTA, abdomen is soft and nontender. No focal neuro deficits. Concern for migraine headache/cluster headache vs viral illness vs atypical ACS. Lower suspicion for giant cell arteritis/trigeminal neuralgia with cessation if symptoms. Unlikely CVA/TIA. Lower suspicion for CHF, PE/DVT or dissection. Unlikely fracture Plan: EKG, labs, CXR, viral testing, visual acuity Please refer to course for remaining clinical decision making, interpretation of labs/imaging results, and discussions with consultants and/or family members. Differential Diagnosis Differential Diagnoses: The differential diagnosis associated with the presentation includes As above Admission/Observation Consideration of admission/observation: Escalation of care including admission/observation considered Lab Data [facility] Lab Attestation statement: I reviewed the patient's lab results. 04/13/25 12:30 04/13/25 12:30 Labs: Lab Results 04/13/25 04/13/25 Range/Units 12:30 14:13 WBC 11.9 H (4.8-10.8) X10*3/uL RBC 4.24 (4.20-5.50) X10*6/uL Hgb 11.4 L (12.0-16.0) g/dl Hct 35.3 L (37.0-47.0) % MCV 83.3 (80.0-98.0) fL MCH 26.9 L (27.0-33.0) pg MCHC 32.3 (31.0-35.0) g/dl RDW 17.1 H (11.0-16.0) % Plt Count 342 (160-400) X10*3/uL MPV 8.9 L (9.4-12.3) fL Immature Gran % (Auto) 1.1 H (0.0-0.4) % Neut % (Auto) 89.8 H (45-73) % Lymph % (Auto) 5.8 L (20-40) % Pitkin % (Auto) 2.8 (2-11) % Eos % (Auto) 0.1 (0-4) % Baso % (Auto) 0.4 (0-2) % Lymph # (Auto) 0.7 L (1.2-4.9) X10*3/uL Pitkin # (Auto) 0.3 (0.1-1.2) X10*3/uL Eos # (Auto) 0.0 (0.0-0.4) X10*3/uL Baso # (Auto) 0.1 (0.0-0.2) X10*3/uL Abs Immat Gran (auto) 0.13 H (0.00-0.03) X10*3/uL Absolute Neuts (auto) 10.7 H (2.0-8.3) x10*3/uL Absolute Nucleated RBC 0.000 (0.0-0.012) X10*3/uL Nucleated RBC % (auto) 0.0 (0.0-0.2) /100WBC ESR 38 H (0-20) MM/HR Sodium 138 (135-145) mmol/L Potassium 4.5 (3.3-5.1) mmol/L Chloride 103 (96-108) mmol/L Carbon Dioxide 26 (22-29) mmol/L Anion Gap 14 (12-20) BUN 20 H (9-16) mg/dL Creatinine 0.68 (0.5-1.4) mg/dL Estim Creat Clear Calc 67.8 Estimated GFR > 60 Random Glucose 222 H (60-115) mg/dL Calcium 9.4 (8.4-10.2) mg/dL Magnesium 1.9 (1.6-2.6) mg/dL Total Bilirubin 0.4 (0.0-1.0) mg/dL Direct Bilirubin 0.2 (0.0-0.5) mg/dL AST 90 H (5-31) U/L ALT 121 H (0-31) U/L Alkaline Phosphatase 57 (39-117) U/L Troponin I High Sens 6.9 5.5 (<3.5-17.0) ng/L C-Reactive Protein 0.43 (< or = 0.50) mg/dL Total Protein 8.8 H (6.5-8.0) g/dL Albumin 3.8 (3.5-5.0) g/dL Influenza Type A (PCR) NEGATIVE (Negative) Influenza Type B (PCR) NEGATIVE (Negative) RSV RNA Qual (PCR) NEGATIVE (Negative) SARS-CoV-2 RNA (RT-PCR) NEGATIVE (Negative) Independent Interpretation I performed an independent interpretation of an: EKG, Plain X-Ray and CT Scan Radiology Impression Discussion of test interpretation with radiology: I have reviewed the radiologist's reading. External Record Review External record reviewed: Inpatient record, Office record, Outpatient record, Prior outpatient labs, Prior outpatient radiology, Primary care record and Outside ED record Tests considered The following testing was considered but not selected: As above Prescription Management I considered prescription management with: Pain Medication and Other Chronic Conditions Patient?s care impacted by: Diabetes, Hypertension and Other Social Determinants Patient?s care significantly limited by Social Determinants of Health including: Problems related to primary support group and Other Social Determinant of Health Discharge Plan Discharge Clinical Impression: Atypical chest pain, Headache, Blurred vision Patient Disposition: Home, Self-Care Instructions: Acute Headache (DC), Blurred Vision (ED), Noncardiac Chest Pain (ED) Additional Instructions: Your workup was reassuring today, head CT and chest x-ray are unremarkable Please have close follow up with your primary care doctor as well as Ophthalmology If her symptoms recur, persist, worsen, you develop weakness, vision change or loss, nausea/vomiting return to the ED Prescriptions: No Action (DME) pen needle, diabetic [BD Corin 2nd Gen Pen Needle] 32 gauge x 5/32 needle See Rx Instructions .MEDSUPPLY Qty: 100 4RF Rx Instructions: once a day cholecalciferol (vitamin D3) 50 mcg (2,000 unit) capsule 50 mcg PO DAILY Qty: 90 3RF (DME) FreeStyle Lite Strips Strip See Rx Instructions .ROUTE .MEDSUPPLY Qty: 100 5RF Rx Instructions: 3 times a day (DME) blood-glucose meter [FreeStyle Lite Meter] Kit See Rx Instructions .Route Qty: 1 0RF Rx Instructions: As directed TID (DME) blood pessure cuff See Rx Instructions .Route .MEDSUPPLY Qty: 1 0RF Rx Instructions: As directed Brilinta 90 mg tablet 90 mg PO BID Qty: 60 11RF ferrous sulfate 325 mg (65 mg iron) Tablet 325 mg PO BID Qty: 60 6RF (DME) pen needle, diabetic [BD Ultra-Fine Corin Pen Needle] 32 gauge x 5/32 needle See Rx Instructions .Route Qty: 100 1RF Rx Instructions: As directed insulin glargine [Lantus Solostar U-100 Insulin] 100 unit/mL (3 mL) insulin pen 15 unit subcut DAILY 30 Days Qty: 15 3RF dapagliflozin propanediol [Farxiga] 10 mg tablet 10 mg PO DAILY Qty: 90 0RF levothyroxine 150 mcg tablet 150 mcg PO DAILY@0600 Qty: 30 4RF (DME) cane Device See Rx Instructions .Route Qty: 1 0RF Rx Instructions: As directed polyethylene glycol 3350 [Miralax] 17 gram powder in packet 17 g PO BID Qty: 100 0RF fluoxetine 10 mg capsule 10 mg PO DAILY Qty: 90 1RF losartan 25 mg tablet 25 mg PO DAILY Qty: 90 0RF alprazolam 0.25 mg tablet 0.25 mg PO DAILY PRN (Reason: anxiety) Qty: 15 0RF metformin 1,000 mg tablet 1,000 mg PO BID Qty: 180 1RF (DME) lancets [TRUEplus Lancets] 33 gauge misc See Rx Instructions .ROUTE TID Qty: 100 Rx Instructions: As directed check BS TID (DME) lancets [FreeStyle Lancets] 28 gauge misc See Rx Instructions .ROUTE .MEDSUPPLY Qty: 100 11RF Rx Instructions: As directed three times a day (DME) FreeStyle Control Solution See Rx Instructions .ROUTE .MEDSUPPLY Qty: 1 Rx Instructions: As directed (DME) pen needle, diabetic [BD Ultra-Fine Corin Pen Needle] 32 gauge x 5/32 needle See Rx Instructions .ROUTE .MEDSUPPLY Qty: 100 3RF Rx Instructions: As directed once daily sodium,potassium,mag sulfates [Suprep Bowel Prep Kit] 17.5-3.13-1.6 gram recon soln See Rx Instructions PO .COMPLEX Qty: 354 0RF Rx Instructions: DILUTE; drink 1/2 at 6-8 pm and half at 11 PM- 1AM melatonin 5 mg tablet PO pantoprazole 20 mg tablet,delayed release (DR/EC) 20 mg PO DAILY Qty: 90 2RF Repatha SureClick 140 mg/mL pen injector 140 mg subcut Q2W Qty: 2 0RF melatonin 10 mg capsule 10 mg PO BEDTIME PRN (Reason: sleep) Qty: 30 7RF isosorbide mononitrate 30 mg tablet extended release 24 hr 30 mg PO DAILY Qty: 90 1RF aspirin [Adult Low Dose Aspirin] 81 mg tablet,delayed release (DR/EC) 81 mg PO DAILY Qty: 90 3RF metoprolol succinate 50 mg tablet extended release 24 hr 50 mg PO DAILY Qty: 90 3RF Referrals: Ankush Bañuelos [Physician] - 1 week Po,Conor Alba MD [Primary Care Provider] - 3 days Print Language: Northern Irish
[2025-04-13] MEDS: Fluorescein Sodium STRIP 1 STRIP EYE-RIGHT (11:58)
[2025-04-13] MEDS: Tetracaine HCl/PF 0.5% Oph Sol 4 ML DROPS 1 DROP EYE-RIGHT (11:58)
--- NOTE | 2025-04-13 12:18 | ECG_ITS ---
Test Reason : CP Blood Pressure : */* mmHG Vent. Rate : 70 BPM Atrial Rate : 70 BPM P-R Int : 124 ms QRS Dur : 72 ms QT Int : 366 ms P-R-T Axes : 29 17 48 degrees QTcB Int : 395 ms Normal sinus rhythm Normal ECG When compared with ECG of 04-Feb-2025 14:13, No significant change was found Referred By: Antoinette Solis Electronically Signed By: Shin Denton
[2025-04-13 12:35] LABS: MANUAL DIFF FLAG NO
[2025-04-13 12:43] LABS: Basophils Absolute Auto 0.1 X10*3/uL (0.0-0.2); Basophils Percent Auto 0.4 % (0-2); Eosinophils Percent Auto 0.1 % (0-4); Hematocrit 35.3 % (37.0-47.0); Hemoglobin 11.4 g/dl (12.0-16.0); Imm Gran Abs Auto 0.13 X10*3/uL (0.00-0.03); Imm Gran Pct Auto 1.1 % (0.0-0.4); Lymphocytes Absolute Auto 0.7 X10*3/uL (1.2-4.9); Lymphocytes Percent Auto 5.8 % (20-40); Mean Corpuscular HGB Conc 32.3 g/dl (31.0-35.0); Mean Corpuscular Hemoglobin 26.9 pg (27.0-33.0); Mean Corpuscular Volume 83.3 fL (80.0-98.0); Mean Platelet Volume 8.9 fL (9.4-12.3); Monocytes Absolute Auto 0.3 X10*3/uL (0.1-1.2); Monocytes Percent Auto 2.8 % (2-11); Neutrophils Absolute Auto 10.7 x10*3/uL (2.0-8.3); Neutrophils Percent Auto 89.8 % (45-73); Platelet Count 342 X10*3/uL (160-400); Red Blood Count 4.24 X10*6/uL (4.20-5.50); Red Cell Distribution Width 17.1 % (11.0-16.0); White Blood Count 11.9 X10*3/uL (4.8-10.8)
[2025-04-13 12:52] LABS: C Reactive Protein 0.43 mg/dL (< or = 0.50)
[2025-04-13 12:55] LABS: Alanine Aminotransferase 121 U/L (0-31); Albumin Level 3.8 g/dL (3.5-5.0); Alkaline Phosphatase 57 U/L (39-117); Anion Gap 14 (12-20); Aspartate Amino Transferase 90 U/L (5-31); Bilirubin Direct 0.2 mg/dL (0.0-0.5); Bilirubin Total 0.4 mg/dL (0.0-1.0); Blood Urea Nitrogen 20 mg/dL (9-16); Calcium 9.4 mg/dL (8.4-10.2); Carbon Dioxide 26 mmol/L (22-29); Chloride 103 mmol/L (96-108); Creatinine Clr Calc Pharmacy 67.8; Estimated Glomerular Filt Rate > 60; Glucose Random 222 mg/dL (60-115); Magnesium 1.9 mg/dL (1.6-2.6); Potassium 4.5 mmol/L (3.3-5.1); Sodium 138 mmol/L (135-145); Total Protein 8.8 g/dL (6.5-8.0)
[2025-04-13 13:00] LABS: Troponin-I High Sensitivity 6.9 ng/L (<3.5-17.0)
[2025-04-13 13:27] LABS: Erythrocyte Sedimentation Rate 38 MM/HR (0-20)
[2025-04-13 13:35] LABS: Influenza A PCR NEGATIVE (Negative); Influenza B PCR NEGATIVE (Negative); Resp Syncy Virus RNA Qual PCR NEGATIVE (Negative); SARS COV2 PCR INHOUSE NEGATIVE (Negative)
[2025-04-13 14:07] VITALS: BP 137/66; PULSE 78; RESP 18; TEMP 36.7; O2SAT 98
[2025-04-13 14:41] LABS: Troponin-I High Sensitivity 5.5 ng/L (<3.5-17.0)
== END 2025-04-13 15:18 | disposition home or self-care (01) ==
PROVIDERS: Physician Assistant; Emergency Provider Emergency Medicine; PCP Internal Medicine
DX: R07.89 Other chest pain (principal); R51.9 Headache, unspecified; H53.8 Other visual disturbances; Z03.818 Encounter for observation for suspected exposure to other biological agents ruled out; E11.9 Type 2 diabetes mellitus without complications; I10 Essential (primary) hypertension; E03.9 Hypothyroidism, unspecified; Z79.84 Long term (current) use of oral hypoglycemic drugs; Z79.82 Long term (current) use of aspirin
CPT/HCPCS: 0241U; 36415; 70450; 71046; 80048; 80076; 83735; 84484; 85025; 85652; 86140; 93005; 99283; 99284

== ENCOUNTER → 2025-04-13 12:05 | Outpatient (BNV) | payer OTHER, SELFPAY | PROVIDERS: Emergency Provider Emergency Medicine; PCP Internal Medicine; Visit Provider Radiology Diagnostic Radiology | DX: H57.11 Ocular pain, right eye (principal); H53.9 Unspecified visual disturbance; R07.9 Chest pain, unspecified | CPT/HCPCS: 70450; 71046 ==

== ENCOUNTER → 2025-04-13 12:18 | Outpatient (BNV) | payer OTHER, SELFPAY | PROVIDERS: Emergency Provider Emergency Medicine; PCP Internal Medicine; Visit Provider Internal Medicine Cardiovascular Disease | DX: R07.9 Chest pain, unspecified (principal) | CPT/HCPCS: 93010 ==

== ENCOUNTER 2025-04-14 10:06 | Outpatient (AMB) | payer OTHER, SELFPAY ==
--- NOTE | 2025-04-14 10:10 | MHC.OFFVIS ---
Vital Signs 04/14/25 10:13 Height 5 ft 2 in Weight 128 lb 11.999 oz BMI 23.5 BP 130/70 Blood Pressure Location Rt brachial Position Sitting Respiration 16 Pulse 71 Pulse Source Pulse Oximeter Pulse Oximetry (%) 98 Oxygen Delivery Method Room Air Intake Visit Reasons: follow up/ MD gilman this follow up date Intake Note: Patient presents for Dermatomyositis follow up. Commercial Lines Account Executive Required: Yes Commercial Lines Account Executive Language: Brim Stretcher Services: Commercial Lines Account Executive Present Commercial Lines Account Executive Name: Srinivasan Salgado539 Information Interpreted: non-clinical & clinical Allergies penicillin V Allergy (Unknown, Verified 04/14/25 10:15) hives Penicillins [PENICILLINS] Allergy (Unknown, Verified 04/14/25 10:15) RASH,DIZZINESS Medication List - Last Reconciled 04/14/25 by Dinora Sheth MD alprazolam 0.25 mg PO DAILY PRN aspirin (Adult Low Dose Aspirin) 81 mg PO DAILY blood glucose control high,low (FreeStyle Control solution) As directed [blood pessure cuff As directed] blood sugar diagnostic (FreeStyle Lite Strips) 3 times a day blood-glucose meter (FreeStyle Lite Meter kit) As directed TID cane As directed cholecalciferol (vitamin D3) 50 mcg PO DAILY dapagliflozin propanediol (Farxiga) 10 mg PO DAILY evolocumab (Repatha SureClick) 140 mg subcut Q2W ferrous sulfate 325 mg PO BID fluoxetine 10 mg PO DAILY insulin glargine (Lantus Solostar U-100 Insulin) 15 units (0.15 mL) subcut DAILY 30 days isosorbide mononitrate ER 30 mg PO DAILY lancets (TRUEplus Lancets) As directed check BS TID lancets (FreeStyle Lancets) As directed three times a day levothyroxine 150 mcg PO DAILY@0600 losartan 25 mg PO DAILY melatonin 10 mg PO BEDTIME PRN melatonin mg PO metformin 1,000 mg PO BID metoprolol succinate ER 50 mg PO DAILY pantoprazole 20 mg PO DAILY pen needle, diabetic (BD Corin 2nd Gen Pen Needle) once a day pen needle, diabetic (BD Ultra-Fine Corin Pen Needle) As directed once daily pen needle, diabetic (BD Ultra-Fine Corin Pen Needle) As directed polyethylene glycol 3350 (Miralax) 17 grams PO BID sodium,potassium,mag sulfates 17.5-3.13-1.6 gram (Suprep Bowel Prep Kit) DILUTE; drink 1/2 at 6-8 pm and half at 11 PM- 1AM ticagrelor (Brilinta) 90 mg PO BID HPI Comments Details: Patient is a 63-year-old female with hypothyroidism, hypertension complicated by CAD status post stenting (10/2024 ) and 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 here today for follow up of polymyositis/dermatomyositis Interval History: Patient last seen 03/12/2025 with me. At that time she was following up for her dermatomyositis/polymyositis. 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 During the hospitalization she was noted to have elevated LFTs and was asked to follow up about this as an outpatient. She followed up with her primary care 12/02/2024. ?Labs were sent and it was noted that she had elevated CK greater than 8000 which on repeat increase to 10,000. Transaminases were elevated as well.? She was admitted to [facility] 12/03/24 with rhabdomyolysis and started on IV fluids.? Despite IV fluids her CK plateaued at around 5000.? She was previously on a statin but this was stopped prior to her 10/2024 hospitalization but this was stopped. Has been having muscle pain/bone pain for about 1 year. Feels that she is very weak and not able to walk or raise her arm above her head. No rashes Fingers do change color in the cold Current Rheumatology Medication(s): Prednisone 20mg PO IVIG 2g/kg every 4 weeks [facility] Medical History Dermatomyositis Elevated CK CAD (coronary artery disease) STEMI (ST elevation myocardial infarction) GERD (gastroesophageal reflux disease) Physical exam, pre-employment Sebaceous cyst RUQ pain Cervical polyp Muscle strain of right scapular region H. 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 Father Diabetes Heart disease Mother Diabetes Hypertension Heart disease Brother Lung cancer Sister Heart disease Social History Household Members: Family Housing: House Are you a primary healthcare administration internship to a significant other at home: No Do you presently have visiting nurse or other home services: Yes Unable to assess alcohol history related to: Unknown Alcohol intake: never Patient Tobacco Use Status: Never used Tobacco Tobacco use type: Cigarette e-Cigarette/Vaping Use: Never Used Second Hand Smoke Exposure: No service: No Current occupational status: employed and disabled 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 Cognitive needs: No Hearing needs: No Vision needs: No Female Reproductive History Menstrual Age of Menarche: 12 Review of Systems Const Details: Review of Systems Constitutional: Denies fever, chills, weight loss ENT: Denies vision changes, eye pain or eye redness, dental caries, dry mouth GI: Denies nausea, vomiting, diarrhea, abdominal pain, change in BM Pulm: Denies SOB, TORRES, hemoptysis, wheezing Cards: Denies chest pain, palpitations Skin: Denies Raynaud's, rash, nail changes, photosensitivity, PLANT PROTECTION SUPERINTENDENT: Denies headaches, paresthesias, recurrent falls MSK: as per HPI All other systems reviewed and are unremarkable except noted above Physical Exam Vital Signs: Last Vital Signs Pulse 71 04/14/25 10:13 Resp 16 04/14/25 10:13 BP 130/70 04/14/25 10:13 Pulse Ox 98 04/14/25 10:13 Oxygen Delivery Method Room Air 04/14/25 10:13 BMI result Body Mass Index 23.5 Vital signs reviewed Physical Examination CONSTITUITIONAL Patient alert and cooperative. Well appearing and in no apparent painful distress HEENT Conjunctiva and sclera clear. ?Pupils equal round and reactive to light. ?No lymphadenopathy. ? CHEST/RESPIRATORY SYSTEM Normal respiratory effort and able to speak in complete sentences. ?Clear to auscultation bilaterally. ?No crackles, rales, rhonchi, wheezes heard. CARDIAC SYSTEM Regular rate and rhythm. ?S1 and S2 heard no murmurs. ?Radial pulses intact bilaterally MSK Hands: ?Good magento developer strength bilaterally. No deformities noted. ?No synovitis noted to the MCPs, PIPs or DIPs. ?No tenderness to palpation of these joints. Wrists: ?Full range of motion at the wrists without pain. ?No tenderness to palpation or synovitis noted to the wrists. Elbows: Full range of motion without pain. No tenderness, weakness, swelling, increased warmth or erythema. Shoulders: Full range of motion without pain. No tenderness, weakness, swelling, increased warmth or erythema. Hips: Full range of motion without pain. Hip bursa: No tenderness to palpation Knees: ?Full range of motion. ?No tenderness, swelling, increased warmth or erythema.?No effusion or crepitations Ankles: Full range of motion. ?No tenderness, swelling, increased warmth or erythema.? Feet: ?Negative squeeze test. ?No tenderness to palpation or swelling of the MTPs. Tender points:?No tenderness to palpation of the bilateral trapezius, supraspinatus, greater trochanters, anterior costochondral junctions, bilateral gluteal areas, bilateral suboccipital muscle insertions SKIN Skin intact without rashes. Livedeo reticularis No gottrons sign, holster sign, shawl sign normal capillary nailfolds neck flexion 5 magento developer strength 5 5 wrist flexion 5 5 wrist extension 5 5 elbow flexion 5 5 elbow extension 5 5 shoulder abduction 4 4 shoulder adduction 4+ 4+ hip flexion 4 4 knee extension 5 5 knee flexion 5 5 ankle dorsiflexion 5 5 ankle plantarflexion 5 5 Results Reviewed Results Reviewed: Laboratory Tests 03/07/25 03/12/25 04/13/25 09:11 08:43 12:30 WBC 11.9 H RBC 4.24 Hgb 11.4 L Hct 35.3 L ESR 23 H 38 H Sodium 138 Potassium 4.5 Chloride 103 Carbon Dioxide 26 BUN 20 H Creatinine 0.68 AST 65 H 90 H ALT 139 H 121 H Total Creatine Kinase 731 H C-Reactive Protein 0.43 Immunology labs 10/28/24 12/02/24 12/11/24 11:02 11:13 12:45 KENNY Screen POSITIVE A KENNY Titer 1:40 H KENNY Pattern Nuclear, Speckled A Proteinase 3 (PR3) Ab <1.0 Myeloperoxidase Ab <1.0 KELSEY-1 Antibody <11 EJ Antibody <11 OJ Antibody <11 Mi-2-Alpha Ab <11 Mi-2-Beta Ab 26 H NXP-2 Ab <11 PL-7 Antibody <11 PL-12 Antibody <11 SRP Ab <11 MDA5 Ab <11 Myos P155/140 TIF1-g Ab <11 HMGCR IgG Antibody 224 H NT5C1A IgG Antibody 6 Anti-Smooth Muscle Ab <20 Tiss Transglutamin IgG <1.0 Tiss Transglutamin IgA <1.0 Rae/Kid Microsom Ab Int <=20.0 Immunoglobulins 02/18/25 12:32 IgG Total 1053 IgA Total 298 IgM 62 Laboratory Tests 03/07/25 09:03 Urine Color Yellow Urine Blood Negative Urine RBC 0-2 Microalb/Creat Ratio 55.9 H Assessment & Plan Assessment & Plan (1) Dermatomyositis: Code(s): M3.13 - Other dermatomyositis without myopathy Category: Medical Plan: #Dermatomyositis/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 Based on the antibody profile she is mi 2 positive and HMGCR antibody positive. Currently on IVIG monotherapy with improvement. Will continue to taper prednisone Plan - IVIG 2g/kg monthly - Prednisone 15mg x 4 weeks then 10mg x 4 weeks then follow up - RTC 8 weeks - Labs before visit: CBC, CMP, ESR, CRP, CK, aldolase (2) Long-term current use of intravenous immunoglobulin (IVIG): Code(s): Z79.899 - Other snf (current) drug therapy Plan: #Long-term use of IVIG Discussed with this patient the risks and benefits of IVIG use to the management of the rheumatic condition Benefits include improved disease control and maintenance of remission Risks include anaphylaxis, blood clots, transfusion related acute lung injury, hemolytic reaction, fluid overload, heart problems Plan I spent 30 minutes reviewing the record and labs, taking a history, examining the patient, discussing the treatment plan, ordering diagnostic work up, and documenting in the medical record Orders: Orders Comprehensive Met. Panel 8 Weeks - Other dermatomyositis without myopathy C Reactive Protein 8 Weeks - Other dermatomyositis without myopathy Creatine Kinase Total 8 Weeks M33.13 - Other dermatomyositis without myopathy Erythrocyte Sedimentation Rate 8 Weeks M3. - Other dermatomyositis without myopathy Complete Blood Count Auto Diff 8 Weeks . - Other dermatomyositis without myopathy Aldolase 8 Weeks . - Other dermatomyositis without myopathy Medications: New prednisone Take 3 tablets daily for 4 weeks then 2 tablets daily for 4 weeks 5 mg PO DIRECTED 150 tabs 0RF M3. - Other dermatomyositis without myopathy Coding Level of Care Code Est Pt Level 4 (51269) Diagnoses Dermatomyositis Long-term current use of intravenous immunoglobulin (IVIG) Z79.899
[2025-04-14 10:13] VITALS: BP 130/70; PULSE 71; RESP 16; O2SAT 98; BMI 23.5
--- OUTSIDE RECORDS SUMMARY | 2025-04-14 11:20 | XMS_ITS | Encounter Summary ---
Author Organization [employer] Address [address] [facility] 7t [place] [address] Care Team Providers Care Special Education Teaching Assistant Name Role Phone Unavailable Primary Care Provider Unavailabl e Reason for Visit * Reason Comments Med Refill Encounter Details Date Type Department Care Team ([facility] st Contact Info) Description 08/15/2024 Refill [facility] MED & PEDS [address] [place] [address] Kimberley Cunningham, BRAKES INSPECTOR [address] [place] [address] Hypothyroidism, unspecified type Social History Tobacco Use [...]
--- OUTSIDE RECORDS SUMMARY | 2025-04-14 11:20 | XMS_ITS | Encounter Summary ---
Author Organization [employer] Address [address] [facility] 7t [place] [address] Care Team Providers Care Cuff Presser Name Role Phone Kimberley Cunningham GAUGE CHECKER Primary Care Provider [phone] Reason for Visit * Reason Comments Med Refill Encounter Details Date Type Department Care Team ([facility] st Contact Info) Description 09/08/2023 Refill [facility] MEDICINE [address] [place], [place] [phone] Jojo Washburn MD [address] [place], [place] [phone] Depressive disorder Social History Tobacco Use Types [...] documented as of this encounter Care Teams Cuff Presser Relationship Specialty Start Date End Date Kimberley Cunningham FNP [address] [place] [id number] PCP - General Family Medicine 07/23/22 03/20/24 documented as of this encounter
--- OUTSIDE RECORDS SUMMARY | 2025-04-14 11:20 | XMS_ITS | Encounter Summary ---
Author Organization [employer] Address [address] [address] [facility] [address] [place] [address] Care Team Providers Care Page Makeup System Operator Name Role Phone Unavailable Primary Care Provider Unavailabl e Reason for Visit * Reason Comments Med Refill Encounter Details Date Type Department Care Team ([facility] st Contact Info) Description 11/13/2024 Refill [facility] MEDICINE [address] [place] [address] Kimberley Cunningham FNP [address] [place] [address] Type 2 diabetes mellitus without complication, with long-term current use of insulin ([facility] - [...] complication, with long-term current use of insulin ([facility]) documented in this encounter Additional Health Concerns Assessment Noted Time PHQ-9 Depression Total Score: 2 01/09/20 23 9:19 AM EST documented as of this encounter
--- OUTSIDE RECORDS SUMMARY | 2025-04-14 11:20 | XMS_ITS | Encounter Summary ---
Author Organization [employer] Address [address] [facility] [address]t [place] [address] Care Team Providers Care Blood Bank Specialist Name Role Phone Kimberley Cunningham Primary Care Provider [phone] Reason for Visit * Reason Comments Med Refill Encounter Details Date Type Department Care Team ([facility] st Contact Info) Description 07/26/2023 Refill [facility] MEDICINE [address] [place] [address] Kimberley Cunningham FNP [address] [place] [address] Depressive disorder Social History Tobacco Use Types [...] documented as of this encounter Care Teams Blood Bank Specialist Relationship Specialty Start Date End Date Kimberley Cunningham FNP [address] [place] [address] PCP - General Family Medicine 07/23/22 03/20/24 documented as of this encounter
--- OUTSIDE RECORDS SUMMARY | 2025-04-14 11:20 | XMS_ITS | Encounter Summary ---
Author Organization [employer] Address [address] [facility] [address] [place] [address] Care Team Providers Care Mail Inserter Name Role Phone Unavailable Primary Care Provider Unavailabl e Reason for Visit * Reason Comments Med Refill Encounter Details Date Type Department Care Team ([facility] st Contact Info) Description 05/21/2024 Refill [facility] MEDICINE [address] [place] [address] Kimberley Cunningham FNP [address] [place] [address] Primary hypertension Social History Tobacco Use Types [...] t he electric, gas, oil or water [employer] threatened to shut off services in your [...]
--- OUTSIDE RECORDS SUMMARY | 2025-04-14 11:20 | XMS_ITS | Clinical Summary ---
Author Organization [employer] Address [address] [facility] 7t [place] [address] Care Team Providers Care Meat And Seafood Manager Name Role Phone Unavailable Primary Care [...] e 2 diabetes mellitus treated with insulin ([facility]) INJECT 8 UNITS SUBCUTANEOUSLY ONCE DAILY IN THE EVENING 15 mL 3 11/01/20 23 Active linaGLIPtin (Tradjenta) 5 MG tabletIndications: Type 2 diabetes mellitus without complication, with long-term current use of insulin ([facility]) TAKE 1 TABLET BY [...] 10 MGIndications:Type 2 diabetes mellitus with hyperglycemia ([facility]) TAKE 1 TABLET BY [...] complication, with long-term current use of insulin ([facility]) TAKE 1 TABLET BY MOUTH TWICE DAILY AT NOON AND IN THE EVENING 180 tablet 1 03/20/20 24 Active lisinopril 20 MG tabletIndications: Primary hypertension TAKE 1 TABLET BY MOUTH AT BEDTIME 90 tablet 2 05/22/20 24 Active FREESTYLE LITE test stripIndications:T ype 2 diabetes mellitus with hyperglycemia ([facility]) TEST BLOOD SUGAR 3 TIMES [...] -Pt in the process of re-establishing with [facility] -Per last available consult note: -CONT [...] Type Department Care Team Description 01/16/2025 Refill [facility] MEDICINE [address] [place] [address] Phalen, Kimberley, ROLLER SKATE REPAIRER Type 2 diabetes mellitus with hyperglycemia ([facility]) from Last 3 Months Immunizations Immunization Administration [...] your housing situation today? I have franco matthew 09/10/[address] you li [...] the past 12 months, has t he [facility], gas, oil or water company threatened to [...] FOBT 1962 HIV Screening 1962 Sigmoidoscopy 1962 Disability Screening 1962 Diabetes: Foot Exam 1972 Alcohol/Substance Use [...] Smear 03/14/2024 03/14/2019 Diabetes: Hemoglobin A1C 05/01/2024 03//2 024, 12/25/2022, 07/13/2021, Additional history exists COVID-19 [...] complication, with long-term current use of insulin ([facility]) MAMMOGRAM GENERIC Routine 10/05/2022 [...] Legacy Procedure: Mammography Report 1 Kimberley Cunningham ROLLER SKATE REPAIRER IMG BI PROCEDURES Final Result * LIPID [...] ?? Jesús ROBERTS et al. KORTNEY. 2013;310(19): 2428-9998 ?? (http://[email or web address]/[email or web address]) Non-HDL Cholesterol 87 <130 mg/dL (calc) [facility] Comment: For patients with diabetes plus 1 major ASCVD risk ?? factor, treating to a non-HDL-C goal of <100 mg/dL ?? (LDL-C of <70 mg/dL) is considered a therapeutic ?? option. Triglycerides 91 <150 mg/dL CONVE RTED [facility] 10/04/2022 8:50 AM EST Kimberley Cunningham ROLLER SKATE REPAIRER LAB BLOOD ORDERABLES Final Res ult CONVERTED [...] [facility] [address] [place] [address], * Pap Smear (03/14/2019) Pap Negative for [...] Maintenance Insurance [facility] STAND ADULT
--- OUTSIDE RECORDS SUMMARY | 2025-04-14 11:20 | XMS_ITS | Encounter Summary ---
Author Organization [employer] Address [address] [facility] [facility] [address] [facility] [address] [place] [address] Care Team Providers Care Auto Parker Name Role Phone Unavailable Primary Care Provider Unavailabl e Reason for Visit * Reason Comments Med Refill Encounter Details Date Type Department Care Team (Late st Contact Info) Description 01/12/2025 Refill [facility] MEDICINE [address] [place] [address] Kimberley Cunningham FNP [address] [place] [address] Type 2 diabetes mellitus with hyperglycemia (CMS/HCC) [...]
--- OUTSIDE RECORDS SUMMARY | 2025-04-14 11:20 | XMS_ITS | Encounter Summary ---
Author Organization [employer] Address [address] [facility] 7t [place] [address] Care Team Providers Care Superintendent Cemetery Name Role Phone Unavailable Primary Care Provider Unavailabl e Reason for Visit * Reason Comments Med Refill Encounter Details Date Type Department Care Team ([facility] st Contact Info) Description 09/10/2024 Refill [facility] MED [facility] PEDS [address] [place] [address] Kimberley Cunningham, EILEEN [address] [place] [address] Depressive disorder Social History Tobacco Use Types [...] t he electric, gas, oil or water [employer] threatened to shut off services in your [...]
--- OUTSIDE RECORDS SUMMARY | 2025-04-14 11:20 | XMS_ITS | Encounter Summary ---
Author Organization [employer] Address [address] [place] [address] Care Team Providers Care [place] Sorter Name Role Phone Unavailable Primary Care Provider Unavailabl e Reason for Visit * Reason Comments Med Refill Encounter Details Date Type Department Care Team (Late st Contact Info) Description 01/16/2025 Refill [facility] MEDICINE [address] [place] [address] Kimberley Cunningham FNP [address] [place] [address] Type 2 diabetes mellitus with hyperglycemia (CMS/HCC) [...]
--- OUTSIDE RECORDS SUMMARY | 2025-04-14 11:20 | XMS_ITS | Encounter Summary ---
Author Organization [employer] Address [address] [facility] 7t [place] [address] Care Team Providers Care Supervisor Frame Assembly Name Role Phone Unavailable Primary Care Provider Unavailabl e Reason for Visit * Reason Comments Med Refill Encounter Details Date Type Department Care Team ([facility] st Contact Info) Description 10/13/2024 Refill [facility] & PEDS [address] [place] [address] Kimberley Cunningham, EILEEN [address] [place] [address] Type 2 diabetes mellitus without complication, with long-term current use of insulin ([facility]) Social [...] with long-term current use of insulin ([facility]) documented in this encounter Additional Health Concerns Assessment Noted Time PHQ-9 Depression Total Score: 2 01/09/20 23 9:19 AM EST documented as of this encounter
--- OUTSIDE RECORDS SUMMARY | 2025-04-14 11:20 | XMS_ITS | Encounter Summary ---
Author Organization [facility] Address [address] [facility] 7t [place] [address] Care Team Providers Care Monotypist Name Role Phone Kimberley Cunningham Primary Care Provider [phone] Encounter Details Date Type Department Care Team (Latest Contact Info) Description 01/07/2020 Abstract [facility] CONVERSIONS Dental, Provider, DDS Social History Tobacco [...] on filedocumented in this encounter Care Teams Monotypist Relationship Specialty Start Date End Date Kimberley Cunningham FNP [address] [place] [address] PCP - General Family Medicine 07/23/22 03/20/24 documented as of this encounter
--- OUTSIDE RECORDS SUMMARY | 2025-04-14 11:20 | XMS_ITS | Encounter Summary ---
Author Organization [employer] Address [address] [address] [place] [address] Care Team Providers Care Edger Saw Operator Name Role Phone Unavailable Primary Care Provider Unavailabl e Reason for Visit * Reason Comments Med Refill Encounter Details Date Type Department Care Team ([facility] st Contact Info) Description 06/17/2024 Refill [facility] MEDICINE [address] [place] [address] Kimberley Cunningham FNP [address] [place] [address] Other hyperlipidemia; Type 2 diabetes mellitus with [...]
--- OUTSIDE RECORDS SUMMARY | 2025-04-14 11:20 | XMS_ITS | Encounter Summary ---
Author Organization [employer] Address [address] 7[address] [place] [address] Care Team Providers Care Telecasting Technician Name Role Phone Unavailable Primary Care Provider Unavailabl e Reason for Visit * Reason Comments Med Refill Encounter Details Date Type Department Care Team ([facility] st Contact Info) Description 08/12/2024 Refill [facility] [address] [place] [address] Kimberley Cunningham FNP [address] [place] [address] Vitamin D insufficiency Social History Tobacco Use [...] the past 12 months, has t he [employer], gas, oil or water company threatened to [...]
--- OUTSIDE RECORDS SUMMARY | 2025-04-14 11:20 | XMS_ITS | Encounter Summary ---
Author Organization [employer] Address [address] [facility] 7t [place] [address] Care Team Providers Care Mobile Manager Name Role Phone Kimberley Cunningham ELECTRIC LINEMAN Primary Care Provider [phone] Encounter Details Date Type Department Care Team ([facility] st Contact Info) Description 10/12/2023 Abstract [facility] [address] [place], [place] [id number] Sandra Villareal Social History Tobacco Use Types [...] documented as of this encounter Care Teams Mobile Manager Relationship Specialty Start Date End Date Kimberley Cunningham FNP [address] [place] [address] PCP - General Family Medicine 07/23/22 03/20/24 documented as of this encounter
--- OUTSIDE RECORDS SUMMARY | 2025-04-14 11:20 | XMS_ITS | Encounter Summary ---
Author Organization [facility] Address [address] [facility] 7t [place] [address] Care Team Providers Care Air Intercept Controller Name Role Phone Kimberley Cunningham Primary Care Provider [phone] Encounter Details Date Type Department Care Team (Latest Contact Info) Description 01/20/2021 Abstract [facility] CONVERSIONS Dental, Provider, DDS Social History Tobacco [...] on filedocumented in this encounter Care Teams Air Intercept Controller Relationship Specialty Start Date End Date Kimberley Cunningham FNP [address] [place] [id number] PCP - General Family Medicine 07/23/22 03/20/24 documented as of this encounter
--- OUTSIDE RECORDS SUMMARY | 2025-04-14 11:20 | XMS_ITS | Encounter Summary ---
Author Organization [employer] Address [address] 7[address] [place] [address] Care Team Providers Care Family Reunification Specialist Name Role Phone Unavailable Primary Care Provider Unavailabl e Reason for Visit * Reason Comments Med Refill Encounter Details Date Type Department Care Team ([facility] st Contact Info) Description 05/20/2024 Refill [facility] [address] [place] [address] Kimberley Cunningham FNP [address] [place] [address] Primary hypertension Social History Tobacco Use Types [...] t he electric, gas, oil or water [email or web address] threatened to shut off services in your [...]
--- OUTSIDE RECORDS SUMMARY | 2025-04-14 11:20 | XMS_ITS | Clinical Summary ---
Author Organization [facility] Facility Address [address] [facility] [address] [address] [place] [address] [place] [address] Care Team Providers Care Chiller Operator Name Role Phone Zaria Milan MD Primary Care Provider [phone] Encounters Date Type Department Care Team Description 03/11/2025 Telephone [facility] [address] [place] [address] Siomara Howell from Last 3 [...] patient's age to complete this topic Insurance [facility] Medicaid Care Teams Chiller Operator Relationship Specialty Start Date End Date Zaria Milan MD [address] [place], [place] PCP - General Internal Medicine 02/16/25
== END 2025-04-14 10:45 | disposition home or self-care (01) ==
LOC: HO.RHE 10:06
PROVIDERS: PCP Internal Medicine; Visit Provider Student in an Organized Health Care Education/Training Program
DX: M33.13 Other dermatomyositis without myopathy (principal); Z79.899 Other long term (current) drug therapy
CPT/HCPCS: 99214

== ENCOUNTER → 2025-04-14 10:06 | Outpatient (BNVA) | payer OTHER, SELFPAY | PROVIDERS: PCP Internal Medicine; Visit Provider Student in an Organized Health Care Education/Training Program | DX: M33.13 Other dermatomyositis without myopathy (principal); Z79.899 Other long term (current) drug therapy | CPT/HCPCS: 99212 ==

== ENCOUNTER 2025-05-27 08:08 | Outpatient (REF) | payer OTHER, SELFPAY ==
--- OUTSIDE RECORDS SUMMARY | 2025-05-27 08:12 | XMS_ITS | Clinical Summary ---
Author Organization [facility] Facility Address [address] [facility] [address] [place] [address] [place] [address] Care Team Providers Care Photographer Portrait Name Role Phone Zaria Milan MD Primary Care Provider [phone] Encounters Date Type Department Care Team Description 03/11/2025 Telephone [facility] [address] [place] [address] Siomara Howell from Last 3 [...] Diabetes: Visual Foot Exam 02/16/2025 Influenza Vaccine (#1) 2025 Pneumococcal Vaccine: Peds ( 0 to 5 Years) and At-Risk Patients (6 to 49 Years) Discontinued 11/03/2003, 11/03/2003 Hepatitis B Vaccine Aged Out 03/29/2007, 11/12/2001, 05/31/2001 No longer eligible based on patient's age to complete this topic Insurance [facility] Medicaid Care Teams Photographer Portrait Relationship Specialty Start Date End Date Zaria Milan MD [address] [place], [place] PCP - General Internal Medicine 02/16/25
[2025-05-27 08:23] LABS: MANUAL DIFF FLAG NO
[2025-05-27 08:50] LABS: Hematocrit 37.0 % (37.0-47.0); Hemoglobin 12.0 g/dl (12.0-16.0); Imm Gran Abs Auto 0.03 X10*3/uL (0.00-0.03); Imm Gran Pct Auto 0.3 % (0.0-0.4); Lymphocytes Absolute Auto 2.0 X10*3/uL (1.2-4.9); Mean Corpuscular HGB Conc 32.4 g/dl (31.0-35.0); Mean Corpuscular Hemoglobin 27.1 pg (27.0-33.0); Mean Corpuscular Volume 83.5 fL (80.0-98.0); NRBC Abs Auto 0.000 X10*3/uL (0.0-0.012); NRBC Pct Auto 0.0 /100WBC (0.0-0.2); Platelet Count 479 X10*3/uL (160-400); Red Blood Count 4.43 X10*6/uL (4.20-5.50); White Blood Count 9.1 X10*3/uL (4.8-10.8)
[2025-05-27 09:02] LABS: Alanine Aminotransferase 36 U/L (0-31); Albumin Level 4.1 g/dL (3.5-5.0); Alkaline Phosphatase 57 U/L (39-117); Anion Gap 10 (12-20); Aspartate Amino Transferase 33 U/L (5-31); Blood Urea Nitrogen 19 mg/dL (9-16); Calcium 9.4 mg/dL (8.4-10.2); Carbon Dioxide 29 mmol/L (22-29); Chloride 105 mmol/L (96-108); Estimated Glomerular Filt Rate > 60; Potassium 4.2 mmol/L (3.3-5.1); Sodium 140 mmol/L (135-145); Total Protein 8.0 g/dL (6.5-8.0)
== END 2025-05-27 08:09 | disposition home or self-care (01) ==
LOC: HO.LAB 08:08
PROVIDERS: PCP Internal Medicine; Visit Provider Student in an Organized Health Care Education/Training Program
DX: M33.13 Other dermatomyositis without myopathy (principal)
CPT/HCPCS: 36415; 80053; 82085; 82550; 85025; 85652; 86140

== ENCOUNTER 2025-06-02 10:01 | Outpatient (AMB) | payer OTHER, SELFPAY ==
[2025-06-02 10:03] VITALS: BP 112/62; PULSE 72; O2SAT 97
--- NOTE | 2025-06-02 10:03 | A.OFFVIS_ITS ---
Vital Signs 06/02/25 10:03 Weight 140 lb 6.951 oz BP 112/62 Blood Pressure Location Rt brachial Position Sitting Pulse 72 Pulse Source Pulse Oximeter Pulse Oximetry (%) 97 Oxygen Delivery Method Room Air Intake Visit Reasons: f/u dermatomyositis / 8 wk f/u req Intake Note: Patient presents today for dermatomyositis and lab review follow up. She brought in her prednisone to see if she needs to take the same dose. Food Dehydrator Operator Name: [id number] Allergies penicillin V Allergy (Unknown, Verified 06/02/25 10:07) hives Penicillins (PENICILLINS) Allergy (Unknown, Verified 06/02/25 10:07) RASH,DIZZINESS Medication List - Last Reconciled 06/02/25 by Dinora Sheth MD aspirin (Adult Low Dose Aspirin) 81 mg PO DAILY blood glucose control high,low (FreeStyle Control solution) As directed [blood pessure cuff As directed] blood sugar diagnostic (FreeStyle Lite Strips) 3 times a day blood-glucose meter (FreeStyle Lite Meter kit) As directed TID cane As directed dapagliflozin propanediol (Farxiga) 10 mg PO DAILY ferrous sulfate 325 mg PO BID fluoxetine 10 mg PO DAILY insulin glargine (Lantus Solostar U-100 Insulin) 15 units (0.15 mL) subcut DAILY 30 days isosorbide mononitrate ER 30 mg PO DAILY lancets (FreeStyle Lancets) As directed three times a day lancets (TRUEplus Lancets) As directed check BS TID levothyroxine 150 mcg PO DAILY@0600 losartan 25 mg PO DAILY melatonin 10 mg PO BEDTIME PRN melatonin mg PO metformin 1,000 mg PO BID metoprolol succinate ER 50 mg PO DAILY pen needle, diabetic (BD Corin 2nd Gen Pen Needle) once a day pen needle, diabetic (BD Ultra-Fine Corin Pen Needle) As directed once daily pen needle, diabetic (BD Ultra-Fine Corin Pen Needle) As directed prednisone 5 mg PO DIRECTED sodium,potassium,mag sulfates 17.5-3.13-1.6 gram (Suprep Bowel Prep Kit) DILUTE; drink 1/2 at 6-8 pm and half at 11 PM- 1AM HPI Comments Details: Patient is a 63-year-old female with hypothyroidism, hypertension complicated by CAD status post stenting (10/2024 ) and 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 During the hospitalization she was noted to have elevated LFTs and was asked to follow up about this as an outpatient. She followed up with her primary care 12/02/2024. ?Labs were sent and it was noted that she had elevated CK greater than 8000 which on repeat increase to 10,000. Transaminases were elevated as well.? She was admitted to [facility] 12/03/24 with rhabdomyolysis and started on IV fluids.? Despite IV fluids her CK plateaued at around 5000.? She was previously on a statin but this was stopped prior to her 10/2024 hospitalization but this was stopped. Has been having muscle pain/bone pain for about 1 year. Feels that she is very weak and not able to walk or raise her arm above her head. No rashes Fingers do change color in the cold Current Rheumatology Medication(s): Prednisone 10mg PO IVIG 2g/kg every 4 weeks [facility] Medical History Dermatomyositis Elevated CK CAD (coronary artery disease) STEMI (ST elevation myocardial infarction) GERD (gastroesophageal reflux disease) Physical exam, pre-employment Sebaceous cyst RUQ pain Cervical polyp Muscle strain of right scapular region H. 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 Cognitive needs: No Hearing needs: No Vision needs: No Female Reproductive History Menstrual Age of Menarche: 12 Review of Systems Const Details: Review of Systems Constitutional: Denies fever, chills, weight loss ENT: Denies vision changes, eye pain or eye redness, dental caries, dry mouth GI: Denies nausea, vomiting, diarrhea, abdominal pain, change in BM Pulm: Denies SOB, TORRES, hemoptysis, wheezing Cards: Denies chest pain, palpitations Skin: Denies Raynaud's, rash, nail changes, photosensitivity, SUPERVISOR [employer]CISION [employer] ELEMENTS: Denies headaches, paresthesias, recurrent falls MSK: as per HPI All other systems reviewed and are unremarkable except noted above Physical Exam Vital Signs: Last Vital Signs Pulse 72 06/02/25 10:03 BP 112/62 06/02/25 10:03 Pulse Ox 97 06/02/25 10:03 Oxygen Delivery Method Room Air 06/02/25 10:03 Vital signs reviewed Physical Examination CONSTITUITIONAL Patient alert and cooperative. Well appearing and in no apparent painful distress HEENT Conjunctiva and sclera clear. ?Pupils equal round and reactive to light. ?No lymphadenopathy. ? CHEST/RESPIRATORY SYSTEM Normal respiratory effort and able to speak in complete sentences. ?Clear to auscultation bilaterally. ?No crackles, rales, rhonchi, wheezes heard. CARDIAC SYSTEM Regular rate and rhythm. ?S1 and S2 heard no murmurs. ?Radial pulses intact bilaterally MSK Hands: ?Good whiskey filterer strength bilaterally. No deformities noted. ?No synovitis noted to the MCPs, PIPs or DIPs. ?No tenderness to palpation of these joints. Wrists: ?Full range of motion at the wrists without pain. ?No tenderness to palpation or synovitis noted to the wrists. Elbows: Full range of motion without pain. No tenderness, weakness, swelling, increased warmth or erythema. Shoulders: Full range of motion without pain. No tenderness, weakness, swelling, increased warmth or erythema. Hips: Full range of motion without pain. Hip bursa: No tenderness to palpation Knees: ?Full range of motion. ?No tenderness, swelling, increased warmth or erythema.?No effusion or crepitations Ankles: Full range of motion. ?No tenderness, swelling, increased warmth or erythema.? Feet: ?Negative squeeze test. ?No tenderness to palpation or swelling of the MTPs. Tender points:?No tenderness to palpation of the bilateral trapezius, supraspinatus, greater trochanters, anterior costochondral junctions, bilateral gluteal areas, bilateral suboccipital muscle insertions SKIN Skin intact without rashes. Livedeo reticularis No gottrons sign, holster sign, shawl sign normal capillary nailfolds Well healed biopsy scar neck flexion 5 whiskey filterer strength 5 5 wrist flexion 5 5 wrist extension 5 5 elbow flexion 5 5 elbow extension 5 5 shoulder abduction 5 5 shoulder adduction 5 5 hip flexion 5 5 knee extension 5 5 knee flexion 5 5 ankle dorsiflexion 5 5 ankle plantarflexion 5 5 Results Reviewed Results Reviewed: Laboratory Tests 03/07/25 03/12/25 04/13/25 09:11 08:43 12:30 WBC RBC Hgb Hct Plt Count ESR 38 H Sodium Potassium Chloride Carbon Dioxide BUN Creatinine AST 90 H ALT 121 H Total Creatine Kinase 731 H C-Reactive Protein Aldolase 17.7 H 05/27/25 08:22 WBC 9.1 RBC 4.43 Hgb 12.0 Hct 37.0 Plt Count 479 H D ESR 23 H Sodium 140 Potassium 4.2 Chloride 105 Carbon Dioxide 29 BUN 19 H Creatinine 0.61 AST 33 H ALT 36 H Total Creatine Kinase 438 H C-Reactive Protein 0.20 Aldolase 8.7 H Immunology labs 10/28/24 12/02/24 12/11/24 11:02 11:13 12:45 KENNY Screen POSITIVE A KENNY Titer 1:40 H KENNY Pattern Nuclear, Speckled A Proteinase 3 (PR3) Ab <1.0 Myeloperoxidase Ab <1.0 KELSEY-1 Antibody <11 EJ Antibody <11 OJ Antibody <11 Mi-2-Alpha Ab <11 Mi-2-Beta Ab 26 H NXP-2 Ab <11 PL-7 Antibody <11 PL-12 Antibody <11 SRP Ab <11 MDA5 Ab <11 Myos P155/140 TIF1-g Ab <11 HMGCR IgG Antibody 224 H NT5C1A IgG Antibody 6 Anti-Smooth Muscle Ab <20 Tiss Transglutamin IgG <1.0 Tiss Transglutamin IgA <1.0 Rae/Kid Microsom Ab Int <=20.0 Immunoglobulins 02/18/25 12:32 IgG Total 1053 IgA Total 298 IgM 62 Laboratory Tests 03/07/25 09:03 Urine Color Yellow Urine Blood Negative Urine RBC 0-2 Microalb/Creat Ratio 55.9 H Assessment & Plan Assessment & Plan (1) Dermatomyositis: Code(s): M33.13 - Other dermatomyositis without myopathy Category: Medical Plan: #Dermatomyositis/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 Based on the antibody profile she is mi 2 positive and HMGCR antibody positive. Currently on IVIG monotherapy with improvement. Will continue to taper prednisone Plan - IVIG 2g/kg monthly - complete the 4 weeks of current dose of prednisone (10mg) then decrease to 9mg x 4 weeks then 8mg x 4 weeks then 7mg x 4 weeks - RTC 3 months - Labs before visit: CBC, CMP, ESR, CRP, CK, aldolase (2) Long-term current use of intravenous immunoglobulin (IVIG): Code(s): Z79.899 - Other superintendent terminal (current) drug therapy Plan: #Long-term use of IVIG Discussed with this patient the risks and benefits of IVIG use to the management of the rheumatic condition Benefits include improved disease control and maintenance of remission Risks include anaphylaxis, blood clots, transfusion related acute lung injury, hemolytic reaction, fluid overload, heart problems (3) 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: Code(s): Z79.52 - 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 Plan: #Long-term Use of Steroids Discussed with patient the risks and benefits of steroid for managing the rheumatic condition Benefits include: - Reduced pain, improved mobility, increased participation in activities, and decreased progression of disease Risks include: - GI upset, potential ultrasound worsening or formation (especially in patients > 65 years old), elevated blood pressure/worsening hypertension, elevated blood sugar/worsening diabetes control, worsening of bone density, elevated lipids/worsening triglycerides, cataract formation, weight gain Recommended using proton pump inhibitors (PPIs) for the duration of steroid use to reduce the risk of gastric ulcers and vitamin-D daily to reduce the risk of osteoporosis Labs checked: A1c, T spot, hepatitis-B and C serologies Pneumocystis jiroveci prophylaxis: Patient with risk factors including steroids greater than 50 mg for more than 30 days, age greater than 60 years, and lung involvement from underlying rheumatic disease requires prophylaxis and will be given so Plan I spent 34 minutes reviewing the record and labs, taking a history, examining the patient, discussing the treatment plan, ordering diagnostic work up, and documenting in the medical record Orders: Orders Comprehensive Met. Panel 3 Months M33.13 - Other dermatomyositis without myopathy Vitamin D 25-OH Total 3 Months M33.13 - Other dermatomyositis without myopathy Aldolase 3 Months M33.13 - Other dermatomyositis without myopathy Creatine Kinase Total 3 Months M33.13 - Other dermatomyositis without myopathy Complete Blood Count Auto Diff 3 Months M33.13 - Other dermatomyositis without myopathy C Reactive Protein 3 Months M33.13 - Other dermatomyositis without myopathy Erythrocyte Sedimentation Rate 3 Months M33.13 - Other dermatomyositis without myopathy Medications: New prednisone 1 mg orally; take 4 tablets daily for 4 weeks then 3 tablets daily for 4 weeks then 2 tablets daily for 4 weeks 150 tabs 1RF M33.13 - Other dermatomyositis without myopathy Coding Level of Care Code Est Pt Level 4 (37096) Complex EM visit Add On G2211 Diagnoses Dermatomyositis M33.13 Long-term current use of intravenous immunoglobulin (IVIG) Z79.899 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
--- OUTSIDE RECORDS SUMMARY | 2025-06-02 10:47 | XMS_ITS | Clinical Summary ---
Author Organization [facility] Facility Address [address] [facility] [address] [place] [address] [place] [address] Care Team Providers Care It Security Administrator Name Role Phone Zaria Milan MD Primary Care Provider [phone] Encounters Date Type Department Care Team Description 03/11/2025 Telephone [facility] [address] [place] [address] Siomara Howell from Last 3 [...] patient's age to complete this topic Insurance [facility] Medicaid Care Teams It Security Administrator Relationship Specialty Start Date End Date Zaria Milan MD [address] [place], [place] PCP - General Internal Medicine 02/16/25
--- OUTSIDE RECORDS SUMMARY | 2025-06-02 10:47 | XMS_ITS | Clinical Summary ---
Author Organization [employer] Address [address] [facility] 7t [place] [address] Care Team Providers Care Tankroom Worker Name Role Phone Unavailable Primary Care [...] diabetes mellitus treated with insulin ([facility]) INJECT 8 UNITS SUBCUTANEOUSLY ONCE DAILY IN THE EVENING 15 mL 3 11/01/20 23 Active linaGLIPtin (Tradjenta) 5 MG tabletIndications: Type 2 diabetes mellitus without complication, with long-term current use of insulin ([facility]) TAKE 1 TABLET BY MOUTH EVERYDAY AT [...] 2 diabetes mellitus with hyperglycemia ([facility]) TAKE 1 TABLET BY MOUTH EVERYDAY AT [...] long-term current use of insulin ([facility]) TAKE 1 TABLET BY MOUTH TWICE DAILY AT NOON AND IN THE EVENING 180 tablet 1 03/20/20 24 Active lisinopril 20 MG tabletIndications: Primary hypertension TAKE 1 TABLET BY MOUTH AT BEDTIME 90 tablet 2 05/22/20 24 Active FREESTYLE LITE test stripIndications:T ype 2 diabetes mellitus with hyperglycemia ([facility]) TEST BLOOD SUGAR 3 TIMES [...] in the process of re-establishing with [facility] Endo -Per last available consult note: -CONT [...] goal Gastroesophageal reflux disease 06/06/2012 Hypothyroidism 06/06/2012 Immunizations Immunization Administration Dates Next Due Hep [...] 82 12/25/2022 3:14 PM EST Temperature 36.8 C (98.2 F) 12/25/2022 3:14 PM EST Respiratory Rate 18 12/25/2022 3:14 PM EST [...] COVID-19 Vaccine ( season) 2024 06/21/2021, 05/24/2021 Mammogram 10/05/2024 10/05/2022, 04/0 03/2021, 09/26/2019, Additional history exists Eye Exam 01/18/2025 01/18/2024, 12/28, 01/18/2024, Additional history exists Tobacco Screening 01/18/2025 01/18/2024 Influenza Vaccine (#1) 2025 DTaP/Tdap/Td Vaccines (2 - Td or Tdap) [...] long-term current use of insulin ([facility]) MAMMOGRAM GENERIC Routine 10/05/2022 10: 20 AM EST LIPID PANEL, STANDARD Routine 10/04/2022 8:50 AM EST ZZZ HISTORICAL MICROALBUMIN, RANDOM Routine 07/13/2021 10:40 AM EDT HM PAP/HPV Routine 03/14/2019 COLONOSCOPY Routine 10/22/2017 from [...] Legacy Procedure: Mammography Report 1 Kimberley Cunningham HOME PERFORMANCE CONSULTANT IMG BI PROCEDURES Final Result * LIPID PANEL, STANDARD (10/04/2022 8:50 AM EST) Chol/HDLC Ratio 2.7 <5.0 (calc) CONVERTED LEGACY LABS Cholesterol, Total 137 <200 mg/dL CONVERT[facility]GAC[facility] HDL Cholesterol 50 > OR = 50 mg/dL [facility] LDL Cholesterol 70 mg/dL (calc) [facility] Comment: Reference range: <100 Desirable range <100 mg/dL for primary prevention; <70 mg/dL for patients with CHD or diabetic patients with > or = 2 CHD risk factors. LDL-C is now calculated using the Jesús-Benito calculation, which is a validated novel method providing better accuracy than the Friedewald equation in the estimation of LDL-C. Jesús SS et al. KORTNEY. 2013;310(19): 8301-4800 (http://education.[employer].Busap/faq/NJJ514) Non-HDL Cholesterol 87 <130 mg/dL (calc) CONVERTED [facility]GACY LABS Comment: For patients with diabetes plus 1 major ASCVD risk factor, treating to a non-HDL-C goal of <100 mg/dL (LDL-C of <70 mg/dL) is considered a therapeutic option. Triglycerides 91 <150 mg/dL CONVE RTED LEGACY LABS 10/04/2022 8:50 AM EST Kimberley Cunningham HOME PERFORMANCE CONSULTANT LAB BLOOD ORDERABLES Final Res ult CONVERTED LEGACY LABS * MICROALBUMIN, RANDOM (07/13/2021 10:40 AM EDT) Creatinine Urine 30.03 mg/dL [facility] Microalbum/Creati nine Ratio Ur TNP ug/mg cr [facility] Comment: Unable to calculate albumin/creatinine ratio due to low microalbumin or creatinine result. Microalbumin Urine <5.0 mg/L [facility] 07/13/2021 10:4 0 AM EDT Historical Provider HISTORICAL/NON ORDERABLE LABS Final Result Performing Organization Address City/[facility] Co de Phone Number [facility] [address] * Pap Smear (03/14/2019) Pap Negative [...] Most Recently Relevant to Health Maintenance Insurance [facility] MEDICAID STAND ADULT
== END 2025-06-02 11:05 | disposition home or self-care (01) ==
LOC: HO.RHE 10:02
PROVIDERS: PCP Internal Medicine; Visit Provider Student in an Organized Health Care Education/Training Program
DX: M33.13 Other dermatomyositis without myopathy (principal); Z79.899 Other long term (current) drug therapy; Z79.52 Long term (current) use of systemic steroids
CPT/HCPCS: 99214; G2211

== ENCOUNTER → 2025-06-02 10:01 | Outpatient (BNVA) | payer OTHER, SELFPAY | PROVIDERS: PCP Internal Medicine; Visit Provider Student in an Organized Health Care Education/Training Program | DX: I10 Essential (primary) hypertension (principal); M33.13 Other dermatomyositis without myopathy; Z79.899 Other long term (current) drug therapy; Z79.52 Long term (current) use of systemic steroids; E03.9 Hypothyroidism, unspecified; E78.5 Hyperlipidemia, unspecified; E11.9 Type 2 diabetes mellitus without complications | CPT/HCPCS: 99212 ==

== ENCOUNTER 2025-06-09 09:50 | Outpatient (AMB) | payer OTHER, SELFPAY ==
--- NOTE | 2025-06-09 10:12 | MHC.PC.OV ---
Vital Signs 06/09/25 10:16 Height 5 ft 4 in Weight 139 lb BMI 23.9 BP 136/82 Blood Pressure Location Lt brachial Position Sitting Pulse 72 Pulse Source Pulse Oximeter Pulse Oximetry (%) 97 Oxygen Delivery Method Room Air Intake Visit Reasons: CAD, Myositis Intake Note: Patient here for a follow up CAD, Myositis Department Clinician Required: Yes Department Clinician Language: Libyan Accompanied by: Self / Same As Patient Allergies penicillin V Allergy (Unknown, Verified 06/09/25 10:29) hives Penicillins (PENICILLINS) Allergy (Unknown, Verified 06/09/25 10:29) RASH,DIZZINESS Tobacco use date assessed: 01/26/25 Dental Screening Dental Screen Date: 06/09/25 Did you have a dental visit in the last 12 months?: Yes Did you have a dental problem in the last 6 months where you did not have access to dental care?: No Was dental information given to patient?: Patient has dentist HPI CAD, Myositis HPI Details ziyad [id number] Libyan interpret. PAtient cannot take Statin due to rhabdomyolysis and so has been told need to lower cholesterol with the injections. - had the shot already- [facility] Medical History Dermatomyositis Elevated CK CAD (coronary artery disease) STEMI (ST elevation myocardial infarction) GERD (gastroesophageal reflux disease) Physical exam, pre-employment Sebaceous cyst RUQ pain Cervical polyp Muscle strain of right scapular region H. pylori infection Overweight (BMI 25.0-29.9) Hypertension Hypothyroidism penitentiary (current) use of insulin Diabetes type 2, uncontrolled Surgical History Hx of knee surgery History of coronary artery stent placement Hx of tubal ligation Hx of cholecystectomy Family History Unknown No problems noted. 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 1. Little interest or pleasure in doing things: several days 2. Feeling down, depressed, or hopeless: several days 3. Trouble falling or staying asleep, or sleeping too much: more than half the days 4. Feeling tired or having little energy: more than half the days 5. Poor appetite or overeating: not at all 6. Feeling bad about yourself - or that you are a failure or have let yourself or your family down: several days 7. Trouble concentrating on things, such as reading the newspaper or watching television: not at all 8. Moving or speaking so slowly that other people could have noticed. Or the opposite - being so fidgety or restless that you have been moving around a lot more than usual: several days 9. Thoughts that you would be better off or of hurting yourself in some way: not at all Total score: 8 Depression Screening Interpretation: Positive Depression Screening Done: Yes Source: Developed by Drs. Deepak Woodard, Netta Chairez, Juan R Tovar and colleagues, with an educational kimi from [employer]. Thrive Questionnaire Date Thrive assessed: 06/09/25 I am a: Patient What is your living situation today?: I have a steady place to live Within the past 12 months, did the food you bought not last and you didn't have the money to get more?: Never true Within the past 12 months, did you worry whether your food would run out before you got money to buy more?: Never true Do you have trouble paying for medicines?: No Do you have trouble getting transportation to medical appointments?: No Do you have trouble paying your heating and electricity bill?: No Do you have trouble taking care of your child, family member or friend?: Yes Do you have trouble with day-to-day activities such as bathing, preparing meals, shopping, managing finances, etc.?: No Are you currently unemployed and looking for a job?: Yes Are you interested in more education?: Yes Please select the resources that you would like help with: None Currently or been in a relationship where the following occur: No concerns reported THRIVE Score: 0 AUDIT C Alcohol Use Questionnaire (AUDIT-C) 1. How often do you have a drink containing alcohol?: Never Total Score: 0 SHAWN-7 AMB Questionnaire SHAWN-7 Date SHAWN - 7 assessed: 06/09/25 Feeling nervous, anxious, or on edge: 0 = Not at all Not being able to stop or control worryin = Not at all Worrying too much about different things: 0 = Not at all Trouble relaxin = Not at all Being so restless that it is hard to sit still: 0 = Not at all Becoming easily annoyed or irritable: 0 = Not at all Feeling afraid as if something awful might happen: 0 = Not at all Total SHAWN-7 score (0-4 normal; 5-9 mild; 10-14 moderate; 15-21 severe): 0 Source: Developed by Drs. Deepak Woodard, Netta Chairez, Juan R Tovar and colleagues, with an educational kimi from [employer]. Physical exam (Primary Care) Vital Signs: Last Vital Signs Pulse 72 06/09/25 10:16 BP 136/82 06/09/25 10:16 Pulse Ox 97 06/09/25 10:16 Oxygen Delivery Method Room Air 06/09/25 10:16 BMI result Body Mass Index 23.9 Tobacco/Smoking Status: Tobacco use Status Tobacco use date assessed 01/26/25 06/09/25 10:12 Patient Tobacco Use Status Never used Tobacco 06/09/25 10:12 Tobacco use type 06/09/25 10:31 e-Cigarette/Vaping Use Never Used 06/09/25 10:12 PHQ-9: PHQ-9 Score PHQ-9: Total score 8 06/09/25 11:04 Depression Screening Interpretation: Positive Thrive Assessment: Date of Thrive Assessment Date Thrive assessed 06/09/25 06/09/25 10:16 Currently or been in a relationship where the following occur: No concerns reported Const General: alert; No acute distress Eyes Conjunctivae: conjunctivae normal Resp Auscultation: clear to auscultation bilaterally Cardio Rate: regular rate Rhythm: regular rhythm GI Inspection: Yes normal to inspection Extrem General: Yes normal to inspection and No edema Results AMB Hemoglobin A1c AMB Hemoglobin A1c 7.6 % Last Edit by MIGDALIA Lazaro on 06/09/25 10:32 Results Reviewed Results Reviewed: Laboratory Last Values Hgb A1c (Clinic) 7.6 % (4.0-6.0) H 06/09/25 10:13 Coding Level of Care Code Est Pt Level 4 (22462) Complex EM visit Add On G2211 Diagnoses Type 2 diabetes mellitus with hyperglycemia, with long-term current use of insulin E11.65; Z79.4 Diabetes mellitus penitentiary insulin use: with terminal operations supervisor use Hypercholesterolemia E78.00 Essential hypertension I10 Hypertension type: essential hypertension Acquired hypothyroidism E03.9 Hypothyroidism type: acquired Gastroesophageal reflux disease without esophagitis K21.9 Esophagitis presence: without esophagitis Dermatomyositis M33.13 Assessment & Plan Assessment & Plan (1) Type 2 diabetes mellitus with hyperglycemia: Comment: [facility] Code(s): E11.65 - Type 2 diabetes mellitus with hyperglycemia Category: Medical Qualifiers: Diabetes mellitus terminal operations supervisor insulin use: with terminal operations supervisor use Qualified Code(s): E11.65 - Type 2 diabetes mellitus with hyperglycemia; Z79.4 - terminal block assembler (current) use of insulin Plan: Decrease the amount of carbohydrate intake, pasta, bread, rice and potatoes are all sugar and that is aside from all the sweet stuff, remember that fruits are good but they are Sweet also. Hemoglobin A1c goal of less than 6.5. Patient is on Farxiga 10 mg once a day Lantus at 15 units once a day metformin a 1000 mg twice a day patient also on steroids the (2) Hypercholesterolemia: Code(s): E78.00 - Pure hypercholesterolemia, unspecified Category: Medical Plan: Avoid fried foods, chicken skin, eggs, butter margarine, pastries and meat. Be it pork or beef they have a lot of cholesterol LDL goal of less than 70 and triglyceride of less than 150 (3) Hypertension: Code(s): I10 - Essential (primary) hypertension Category: Medical Qualifiers: Hypertension type: essential hypertension Qualified Code(s): I10 - Essential (primary) hypertension Plan: Continue with blood pressure medication. Decrease salt intake and exercise patient is on metoprolol 50 mg once a day losartan 25 mg once a day isosorbide mononitrate (4) Hypothyroidism: Code(s): E03.9 - Hypothyroidism, unspecified Category: Medical Qualifiers: Hypothyroidism type: acquired Qualified Code(s): E03.9 - Hypothyroidism, unspecified Plan: Continue with thyroid medication (5) GERD (gastroesophageal reflux disease): Code(s): K21.9 - Gastro-esophageal reflux disease without esophagitis Category: Medical Qualifiers: Esophagitis presence: without esophagitis Qualified Code(s): K21.9 - Gastro-esophageal reflux disease without esophagitis Plan: Avoid the foods that causes that usually spicy foods, tomato products, juices, coffee, soda and foods that your sensitive to. After eating do not lie down, allow 3-4 hours before in lie down. And keep the head of bed above 30 degrees to avoid the acid from going up. (6) Dermatomyositis: Code(s): M33.13 - Other dermatomyositis without myopathy Category: Medical Plan: Patient is being followed up by Rheumatology on Gammagard/IVIG and prednisone but being tapered now Plan History of Present Illness The patient is a 64-year-old female presenting for a follow-up visit. She has a history of hypertension, hypothyroidism, diabetes mellitus, hypercholesterolemia, and gastroesophageal reflux disease (GERD). She also has a history of rhabdomyolysis, coronary artery disease, and dermatomyositis. The patient is currently receiving treatment for polymyositis and dermatomyositis with intravenous immunoglobulin (IVIG) and penicillin. She is also diagnosed with autoimmune myopathy and is tapering prednisone. Recent blood work showed a normal blood count with mild thrombocytosis, normal electrolytes, normal renal function, and a hemoglobin A1c of 7.6%. Liver function was reported as good, and the last LDL cholesterol was 99 mg/dL in February 2025. Health Maintenance Social History Review of Systems Physical Exam Results - Labs: Normal blood count with mild thrombocytosis, normal electrolytes, normal renal function, hemoglobin A1c 7.6%, liver function good, LDL cholesterol 99 mg/dL (February 2025) Plan The patient is advised to continue her current regimen for diabetes management, including Farxiga, Lantus, and Metformin, with a goal to reduce hemoglobin A1c to less than 6.5%. A sliding scale insulin regimen is recommended to address elevated blood sugars in the afternoon, with specific dosing instructions based on blood sugar levels. For hypercholesterolemia, the patient is to continue monitoring her cholesterol levels, with a target LDL of less than 70 mg/dL. She is receiving Repatha injections as part of her cholesterol management plan, given her history of rhabdomyolysis with statins. The patient is to continue tapering prednisone under rheumatology guidance to manage dermatomyositis and autoimmune myopathy. Regular follow-up with rheumatology is advised to monitor her condition and adjust treatment as necessary. Patient was informed and verbally consented to the use of an ambient scribe for clinic note documentation during this visit. Discussion Notes I discussed with the patient the importance of managing her diabetes with a goal of reducing her hemoglobin A1c to less than 6.5%. We reviewed the sliding scale insulin regimen to help manage her blood sugar levels, particularly in the afternoon. We also discussed her cholesterol management, including the use of Repatha injections due to her history of rhabdomyolysis with statins. The need for regular follow-up with rheumatology to manage her dermatomyositis and autoimmune myopathy was emphasized. Patient Instructions - Continue taking Farxiga, Lantus, and Metformin as prescribed. - Follow the sliding scale insulin regimen for afternoon blood sugar management. - Continue Repatha injections for cholesterol management. - Taper prednisone as directed by rheumatology. - Schedule regular follow-ups with rheumatology. Orders: Orders AMB Hemoglobin A1c Today E11.65 - Type 2 diabetes mellitus with hyperglycemia, Z79.4 - terminal block assembler (current) use of insulin Comprehensive Met. Panel 3 Months I25.10 - Atherosclerotic heart disease of [place] coronary artery without angina pectoris Complete Blood Count Auto Diff 3 Months I25.10 - Atherosclerotic heart disease of [place] coronary artery without angina pectoris Thyroid Stimulating Hormone 3 Months I25.10 - Atherosclerotic heart disease of [place] coronary artery without angina pectoris Hemoglobin A1c 3 Months I25.10 - Atherosclerotic heart disease of [place] coronary artery without angina pectoris Free T4 (Free Thyroxine) 3 Months I25.10 - Atherosclerotic heart disease of [place] coronary artery without angina pectoris Lipid Panel 3 Months E78.00 - Pure hypercholesterolemia, unspecified, I25.10 - Atherosclerotic heart disease of [place] coronary artery without angina pectoris Vitamin B12 and Folate 3 Months I25.10 - Atherosclerotic heart disease of [place] coronary artery without angina pectoris Medications: New insulin lispro (Humalog KwikPen (U-100) Insulin) inject according to sliding scale subcutaneously use as directed; < 60 drink juice, 61- 150 no insulin, 151- 230 2 u , 231- 280 4 u, 281-330 6 u , 331-380 8 u and > 380 use 10 u use before lunch 15 mL 3RF Changed From ticagrelor (Brilinta) 90 mg PO BID 60 tabs 11RF I25.10 - Atherosclerotic heart disease of [place] coronary artery without angina pectoris To ticagrelor (Brilinta) started 10/2024 90 mg PO BID 60 tabs 11RF I25.10 - Atherosclerotic heart disease of [place] coronary artery without angina pectoris From insulin glargine (Lantus Solostar U-100 Insulin) 15 units (0.15 mL) subcut DAILY 30 days 15 mL 3RF E11.65 - Type 2 diabetes mellitus with hyperglycemia, Z79.4 - terminal block assembler (current) use of insulin To insulin glargine (Lantus Solostar U-100 Insulin) 9 units (0.09 mL) subcut DAILY 2.7 mL 3RF 30 days E11.65 - Type 2 diabetes mellitus with hyperglycemia, Z79.4 - terminal block assembler (current) use of insulin
[2025-06-09 10:16] VITALS: BP 136/82; PULSE 72; O2SAT 97; BMI 23.9
--- OUTSIDE RECORDS SUMMARY | 2025-06-09 10:37 | XMS_ITS | Clinical Summary ---
Author Organization [employer] Address [address] [place] [address] Care Team Providers Care Higher Level Teaching Assistant Name Role Phone Unavailable Primary [...] e 2 diabetes mellitus treated with insulin ([facility]) INJECT 8 UNITS SUBCUTANEOUSLY ONCE DAILY IN THE EVENING 15 mL 3 11/01/20 23 Active linaGLIPtin (Tradjenta) 5 MG tabletIndications: Type 2 diabetes mellitus without complication, with long-term current use of insulin ([facility]) TAKE 1 TABLET BY MOUTH [...] 10 MGIndications:Type 2 diabetes mellitus with hyperglycemia ([facility]) TAKE 1 TABLET BY MOUTH [...] with long-term current use of insulin ([facility]) TAKE 1 TABLET BY MOUTH TWICE DAILY AT NOON AND IN THE EVENING 180 tablet 1 03/20/20 24 Active lisinopril 20 MG tabletIndications: Primary hypertension TAKE 1 TABLET BY MOUTH AT BEDTIME 90 tablet 2 05/22/20 24 Active FREESTYLE LITE test stripIndications:T ype 2 diabetes mellitus with hyperglycemia ([facility]) TEST BLOOD SUGAR 3 TIMES A [...] -Pt in the process of re-establishing with [facility] End[facility] -Per last available consult note: -CONT [...] with long-term current use of insulin ([facility]) MAMMOGRAM GENERIC Routine 10/05/2022 10: [...] Legacy Procedure: Mammography Report 1 Kimberley Cunningham LAMP MECHANIC IMG BI PROCEDURES Final Result * LIPID [...] LDL-C. Jesús SS et al. KORTNEY. 2013;310(19): 4539-3920 ([email or web address]://[email or web address]/[email or web address]) Non-HDL Cholesterol 87 <130 mg/dL (calc) [facility] Comment: For patients with diabetes plus 1 major ASCVD risk factor, treating to a non-HDL-C goal of <100 mg/dL (LDL-C of <70 mg/dL) is considered a therapeutic option. Triglycerides 91 <150 mg/dL [facility] 10/04/2022 8:50 AM EST Kimberley Cunningham LAMP MECHANIC LAB BLOOD ORDERABLES Final Res ult [facility] * MICROALBUMIN, RANDOM (07/13/2021 10:40 AM EDT) Creatinine Urine 30.03 mg/dL [facility] Microalbum/Creati nine Ratio Ur TNP ug/mg cr [facility] Comment: Unable to calculate albumin/creatinine ratio due to low microalbumin or creatinine result. Microalbumin Urine <5.0 mg/L [facility] 07/13/2021 10:4 0 AM EDT Historical Provider HISTORICAL/NON ORDERABLE LABS Final Result Performing Organization Address City/[facility] Co de Phone Number [facility] [address] * Pap Smear (03/14/2019) Pap Negative [...] Relevant to Health Maintenance Insurance [facility] MEDICAID STAND ADULT
--- OUTSIDE RECORDS SUMMARY | 2025-06-09 10:37 | XMS_ITS | Clinical Summary ---
Author Organization [facility] Facility Address [address] [facility] [address] [place] [address] [place] [id number] Care Team Providers Care Bullet Swaging Machine Adjuster Name Role Phone Zaria Milan MD Primary Care Provider [phone] Encounters Date Type Department Care Team Description 03/11/2025 Telephone [facility] [address] [place] [address] Siomara Howell from Last 3 [...] patient's age to complete this topic Insurance [facility] Medicaid Care Teams Bullet Swaging Machine Adjuster Relationship Specialty Start Date End Date Zaria Milan MD [address] [place], [place] PCP - General Internal Medicine 02/16/25
== END 2025-06-09 11:34 | disposition home or self-care (01) ==
LOC: HO.HMCH 09:52
PROVIDERS: PCP Internal Medicine; Visit Provider Internal Medicine
DX: E11.65 Type 2 diabetes mellitus with hyperglycemia (principal); Z79.4 Long term (current) use of insulin; M33.13 Other dermatomyositis without myopathy; E78.00 Pure hypercholesterolemia, unspecified; I10 Essential (primary) hypertension; E03.9 Hypothyroidism, unspecified; K21.9 Gastro-esophageal reflux disease without esophagitis

== ENCOUNTER → 2025-06-09 09:50 | Outpatient (BNVA) | payer OTHER, SELFPAY | PROVIDERS: PCP Internal Medicine; Visit Provider Internal Medicine | DX: I25.10 Atherosclerotic heart disease of native coronary artery without angina pectoris (principal); E11.65 Type 2 diabetes mellitus with hyperglycemia; E78.00 Pure hypercholesterolemia, unspecified; I10 Essential (primary) hypertension; E03.9 Hypothyroidism, unspecified; K21.9 Gastro-esophageal reflux disease without esophagitis; M33.13 Other dermatomyositis without myopathy; Z79.4 Long term (current) use of insulin | CPT/HCPCS: 83036; 99212 ==

== ENCOUNTER 2025-07-08 05:32 | Emergency (ER) | payer OTHER, SELFPAY ==
--- NOTE | 2025-07-08 | ECG_ITS ---
Test Reason : htn,arm pain Blood Pressure : */* mmHG Vent. Rate : 91 BPM Atrial Rate : 91 BPM P-R Int : 124 ms QRS Dur : 82 ms QT Int : 340 ms P-R-T Axes : 40 9 61 degrees QTcB Int : 418 ms Normal sinus rhythm Nonspecific ST abnormality Abnormal ECG When compared with ECG of 13-Apr-2025 12:38, No significant change was found Referred By: Generic ED Physician Electronically Signed By: Shin Denton
[2025-07-08 05:36] VITALS: BP 239/100; PULSE 88; RESP 16; TEMP 36.2; O2SAT 98; BMI 24.1
--- OUTSIDE RECORDS SUMMARY | 2025-07-08 05:49 | XMS_ITS | Clinical Summary ---
Author Organization [facility] Facility Address [address] [place] [id number] Care Team Providers Care Teaching Associate Name Role Phone Zaria Milan MD Primary Care Provider Social History Tobacco Use Types Packs/Day Years [...] patient's age to complete this topic Insurance [facility] [place] [address] Care Teams Teaching Associate Relationship Specialty Start Date End Date Zaria Milan MD [address] [place], [place] PCP - General Internal Medicine 02/16/25
--- OUTSIDE RECORDS SUMMARY | 2025-07-08 05:49 | XMS_ITS | Clinical Summary ---
Author Organization [facility] Address [address] [place] [id number] Phone Care Team Providers Care Software Engineer Backend Name Role Phone Pcp, Unknown Unavailable Unavailable Conor Garcia MD Primary Care Provider [phone] Allergies Active Allergy Reactions Criticality Noted Date Comments Penicillins 11/08/2022 Medications losartan (COZAAR) 25 MG tablet Take 25 mg by mouth. 11/25/20 24 Active metoprolol succinate (TOPROL-XL) 50 MG 24 hr tablet Take 50 mg by mouth. 11/11/20 24 Active ticagrelor (BRILINTA) 90 mg Tab Take 90 mg by mouth. 11/11/20 24 Active levothyroxine (SYNTHROID, LEVOTHROID) 150 MCG tablet Take 150 mcg by mouth every morning. Active aspirin 81 MG EC tablet Take 81 mg by mouth. 11/11/20 24 Active blood pressure test kit-large Kit USE TO CHECK BLOOD PRESSURE DIRECTED 11/28/19 25 Active FREESTYLE LITE Strp strips USE DIRECTED TO TEST BLOOD SUGAR THREE TIMES DAILY 11/28/19 25 Active FREESTYLE FREEDOM LITE meter kit USE DIRECTED TO TEST BLOOD SUGAR THREE TIMES DAILY 11/28/19 25 Active VITAMIN D3 50 mcg (2,000 unit) capsule TAKE 1 CAPSULE BY MOUTH EVERYDAY AT NOON Active FARXIGA 10 mg tablet Take 10 mg by mouth. 01/17/20 24 Active ferrous sulfate 325 mg (65 mg rosebud iron) tablet Take 325 mg by mouth. 11/09/20 24 Active LANTUS SOLOSTAR U-100 INSULIN 100 unit/mL (3 mL) InPn injection pen INJECT 8 UNITS SUBCUTANEOUSLY EVERY EVENING Active TRUEPLUS LANCETS 33 gauge Misc 3 (three) times a day. 10/21/20 24 Active melatonin 5 mg Tab Take 5 mg by mouth nightly at bedtime. at bedtime. 12/02/19 25 Active PENTIPS PEN NEEDLE 32 gauge x 5/32 Ndle USE ONCE DAILY WITH INSULIN DIRECTED 10/21/20 Active metFORMIN (GLUCOPHAGE) 1000 MG tablet Take 1,000 mg by mouth. 03/20/20 24 Active evolocumab (REPATHA SURECLICK) 140 mg/mL PnIj subcutaneous pen injector Inject 1 mL (140 mg total) under the skin every 14 (fourteen) days. 6 mL 3 12/16/19 25 Active Encounters Date Type Department Care Team Description 05/13/2025 Telephone [facility] [address], [address] [place], [place] [id number] Carl Rosa MD from Last 3 Months Social History Tobacco Use Types Packs/Day Years Used Date Smoking Tobacco: Never Assessed Education Answer Date Recorded Are you interested in more education? Not on dana e 11/11/2024 Are you concerned about learning? Not on file 11/11/2024 No 11/11/2024 No 11/11/2024 Digital Access Answer Date Recorded No 11/11/2024 No 11/11/2024 Reliable internet access at home? Not on file 11/11/2024 Device with a working camera? Not on file Comments Unknown Sex and Gender Information Value Date Recorded Sex Assigned at Not on file Legal Sex Female 2:40 PM EDT Gender Identity Not on file Sexual Orientation Not on file Last Filed Vital Signs Vital Sign Reading Time Taken Comments Blood Pressure 110/64 12/16/2024 4:07 PM EST Pulse 75 12/16/2024 4:07 PM EST Temperature - - Respiratory Rate - - Oxygen Saturation 98% 12/16/2024 4:07 PM EST Inhaled Oxygen Concentration - - Weight 59 kg (130 lb) 12/16/2024 4:07 PM EST Height - - Body Mass Index - - Plan of Treatment Health Maintenance Due Date Last Done Comments CREATININE LEVEL 1962 TSH LEVEL 1962 DEPRESSION SCREENING 1974 SMOKING Hx and SMOKELESS TOBACCO SCREENING 1975 HEPATITIS C SCREENING 1980 HIV ONE-TIME SCREENING (18-6 5 YEARS) 1980 PAP SMEAR 1983 COLOGUARD 2007 COLONOSCOPY 2007 COLORECTAL CANCER SCREENING 2007 FIT TEST 2007 FOBT 2007 SIGMOIDOSCOPY 2007 VIRTUAL COLONOSCOPY 2007 PNEUMOCOCCAL VACCINES (50+ years) (2 of 2 - PCV) 2012 11/03/2003 ZOSTER VACCINES (1 of 2) 2012 MAMMOGRAM 09/26/2021 09/26/2019, 09/19/2018 RSV VACCINE (1 - Risk 60-74 years 1-dose series) 2022 COVID-19 VACCINE (1 - 2023-2 5 season) 2024 LIPID PANEL 12/18/2025 12/18/2024, 10/04/2022 Adult Td,Tdap Booster 09/10/2027 09/10/2017 , 07/29/2004 HEPATITIS A VACCINES Aged Out No long er eligible based on patient's age to complete this topic HIB VACCINES Aged Out No longer eligi ble based on patient's age to complete this topic MENINGOCOCCAL VACCINES (ACWY) Aged Out No longer eligible based on patient's age to complete this topic MENINGOCOCCAL VACCINES (B) Aged Out N o longer eligible based on patient's age to complete this topic Medical Devices Not on file Procedures Procedure Name Priority Date/Time Associated Diagnosis Comments LIPID PANEL Routine 12/18/2024 11:58 AM EST Coronary artery disease without angina pectoris, unspecified vessel or lesion type, unspecified whether [place] or transplanted heart from Last 3 Months or Most Recently Relevant to Health Maintenance Results * (ABNORMAL) Lipid panel (12/18/2024 11:58 AM EST) HDL 43 mg/dL [facility] Comment: Interpretation <40 mg/dL: Low HDL cholesterol (major risk factor for CHD) Greater than or equal to 60 mg/dL: High HDL cholesterol ( negative risk factor for CHD) HDL - cholesterol is affected by a number of factors, e.g. smoking, excerise, hormones, sex and age. CHOLESTEROL 182 0 - 240 mg/dL [facility] TRIGLYCERIDES 185(H) 30 - 160 mg/dL [facility] LDL 102 50 - 129 mg/dL [facility] Comment: LDL levels in terms of risk for coronary heart disease: <100 mg/dL: Optimal 100-129 mg/dL: Near or above optimal 130-159 mg/dL: Borderline high 160-189 mg/dL: High >190 mg/dL: Very High CARDIAC RISK RATIO 4.2 3.3 - 4.4 C [facility] Blood 12/18/2024 11:5 8 AM EST 12/18/2024 12:09 PM EST Carl Rosa MD LAB BLOOD ORDERABLES Final Re sult [facility] Organization Address City/State/ZIP Co de Phone Number [address] [address] from Last 3 Months or Most Recently Relevant to Health Maintenance Insurance [employer] [facility] [place] [address] [place] [address] [place] [address] [place] [address] ACO Care Teams Software Engineer Backend Relationship Specialty Start Date End Date Conor Garcia MD [address] [place] [id number] PCP - General Internal Medicine 12/16/24 Pcp, Unknown 04/09/19 Additional Source Comments The information contained in this document represents components of the legal health record. It is not the complete legal health record.[facility]
[2025-07-08 05:53] LABS: Hematocrit 36.7 % (37.0-47.0); Hemoglobin 12.1 g/dl (12.0-16.0); Imm Gran Abs Auto 0.02 X10*3/uL (0.00-0.03); Imm Gran Pct Auto 0.3 % (0.0-0.4); Lymphocytes Absolute Auto 1.0 X10*3/uL (1.2-4.9); MANUAL DIFF FLAG NO; Mean Corpuscular HGB Conc 33.0 g/dl (31.0-35.0); Mean Corpuscular Hemoglobin 26.8 pg (27.0-33.0); Mean Corpuscular Volume 81.4 fL (80.0-98.0); NRBC Abs Auto 0.000 X10*3/uL (0.0-0.012); NRBC Pct Auto 0.0 /100WBC (0.0-0.2); Platelet Count 362 X10*3/uL (160-400); Red Blood Count 4.51 X10*6/uL (4.20-5.50); White Blood Count 6.3 X10*3/uL (4.8-10.8)
--- NOTE | 2025-07-08 05:56 | MHC.EDTECH ---
ekg and labs done upon arrival to triage. pt brought to room, changed over and placed on bus driver/monitor.
[2025-07-08 06:14] LABS: Alanine Aminotransferase 26 U/L (0-31); Albumin Level 3.7 g/dL (3.5-5.0); Alkaline Phosphatase 65 U/L (39-117); Anion Gap 14 (12-20); Aspartate Amino Transferase 45 U/L (5-31); Blood Urea Nitrogen 16 mg/dL (9-16); Calcium 10.0 mg/dL (8.4-10.2); Carbon Dioxide 22 mmol/L (22-29); Chloride 105 mmol/L (96-108); Creatinine Clr Calc Pharmacy 78.6; Estimated Glomerular Filt Rate > 60; Potassium 5.1 mmol/L (3.3-5.1); Sodium 136 mmol/L (135-145); Total Protein 10.5 g/dL (6.5-8.0)
[2025-07-08 06:19] LABS: Troponin-I High Sensitivity 4.3 ng/L (<3.5-17.0)
--- NOTE | 2025-07-08 06:26 | PC.NURSE ---
pt private branch exchange operator into hospital attire, labs collected and sent, pt placed on bed side monitor
--- NOTE | 2025-07-08 07:24 | ED_ITS ---
HPI - General Adult General Chief complaint: General Medical Stated complaint: left arm painful Time Seen by Provider: 07/08/25 07:04 Source: patient, RN notes reviewed, old records reviewed and machine riveter (alessandro ) Mode of arrival: ambulatory Limitations: language barrier (nepali speaking) History of Present Illness ED Provider: Mckenzie Fair PA-C HPI narrative: 64-year-old female with medical history of GERD, HTN, hypothyroidism, ID T2DM, CAD s/p LAD stent (10/2024) HFpEF, HLD, dermatomyositis presents to the ED due to electrical feeling in the left arm. Patient states she could not sleep last night at around 2 a.m. felt an electrical shock sensation in her L arm. Patient states she always has some pain in her body due to dermatomyositis but this pain is different due to the electrical sensation. Patient currently receiving IVIG infusions with rheumatology, last infusion was yesterday (07/02). Denies chest pain, shortness of breath, abdominal pain, nausea, vomiting, headache, visual changes, dark/tarry stool, urinary symptoms MD complaint: electrical sensation of L arm Related Data Home Medications ?Medication ?Instructions ?Recorded ?Confirmed blood glucose control high and low #1 ea 09/07/20 07/07/20 solution (FreeStyle Control solution) melatonin 5 mg tablet mg PO 04/06/25 06/02/25 Previous Rx's ?Medication ?Instructions ?Recorded pen needle, diabetic 32 gauge x #100 ea 11/02/20 (BD Corin 2nd Gen Pen Needle) pen needle, diabetic 32 gauge x #100 ea 04/18/22 (BD Ultra-Fine Corin Pen Needle) lancets 28 gauge (FreeStyle #100 ea 11/29/23 Lancets) blood pessure cuff #1 ea 11/28/24 blood sugar diagnostic (FreeStyle #100 ea 11/28/24 Lite Strips) blood-glucose meter (FreeStyle #1 ea 11/28/24 Lite Meter kit) metoprolol succinate 50 mg 50 mg PO DAILY #90 tabs 06/19 tablet,extended release 24 hr pen needle, diabetic 32 gauge x #100 ea 01/14/25 (BD Ultra-Fine Corin Pen Needle) aspirin 81 mg tablet,delayed 81 mg PO DAILY #90 tabs 0 02/17/25 release (Adult Low Dose Aspirin) isosorbide mononitrate 30 mg 30 mg PO DAILY #90 tabs 0 02/17/25 tablet,extended release 24 hr melatonin 10 mg capsule 10 mg PO BEDTIME PRN sleep # 30 caps 02/17/25 cane #1 ea 02/23/25 sodium,potassium,mag sulfates 17.5 See Rx Instructions PO .COMPLEX 03/02/25 gram-3.13 gram-1.6 gram oral soln #354 mL (Suprep Bowel Prep Kit) fluoxetine 10 mg capsule 10 mg PO DAILY #90 caps 02/24 04/19 metformin 1,000 mg tablet 1,000 mg PO BID #180 tabs prednisone 5 mg tablet 5 mg PO DIRECTED #150 tab s 04/14/25 dapagliflozin propanediol 10 mg 10 mg PO DAILY #90 tab s 04/16/25 tablet (Farxiga) lancets 33 gauge (TRUEplus Lancets) #100 ea 04/17/25 levothyroxine 150 mcg tablet 150 mcg PO DAILY@0600 #30 tabs 05/13/25 prednisone 1 mg tablet 1 mg PO .COMPLEX #150 tabs 0 06/02/25 evolocumab 140 mg/mL subcutaneous 140 mg subcut Q2W #1 mL 06/09/25 syringe (Repatha Syringe) insulin glargine 100 unit/mL (3 9 unit (0.09 mL) subcu t DAILY 30 06/09/25 mL) subcutaneous pen (Lantus days #2.7 mL Solostar U-100 Insulin) insulin lispro 100 unit/mL See Rx Instructions subcut 06/09/25 subcutaneous pen (Humalog KwikPen USEASDIRECTD #15 mL (U-100) Insulin) losartan 25 mg tablet 25 mg PO DAILY #90 tabs 05/27 01/20 ferrous sulfate 325 mg (65 mg 325 mg PO BID #60 tabs 0 06/18/25 iron) tablet ticagrelor 90 mg tablet (Brilinta) 90 mg PO BID #60 ta bs 06/26/25 Allergies Allergy/AdvReac Type Severity Reaction Status Date / Time penicillin V Allergy Unknown hives Verified 07/08/25 05:37 Penicillins (PENICILLINS) Allergy Unknown RASH,DIZZIN Verified 07/08/25 05:37 ESS Review of Systems 2 Review of Systems: CONST: Negative for fever, body aches and chills. HENT: Negative for neck pain/stiffness, headache, congestion, sore throat, swelling. EYES: Negative for discharge/pain or vision changes. RESP: Negative for cough/hemoptysis and shortness of breath. CV: Negative chest pain, difficulty breathing, palpitations. ABD: Negative pain, nausea, vomiting. : Negative increase frequency, dysuria, blood in urine or stool. MUSC: Negative for muscle aches, edema. POS electrical sensation of L arm SKIN: Negative rash, lesions/sores. NEURO: Negative headache, dizziness, weakness. Yes all other systems are reviewed and are negative [facility] Past Medical History Attestation statement: The following information was validated with the patient. Source: old records reviewed and nursing notes reviewed Medical History Dermatomyositis Elevated CK CAD (coronary artery disease) STEMI (ST elevation myocardial infarction) GERD (gastroesophageal reflux disease) Physical exam, pre-employment Sebaceous cyst RUQ pain Cervical polyp Muscle strain of right scapular region H. 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 Father Diabetes Heart disease Mother Diabetes Hypertension Heart disease Brother Lung cancer Sister Heart disease Social History Social History Household Members: Family Housing: House Are you a primary sub acute care nurse to a significant other at home: No Do you presently have visiting nurse or other home services: Yes Unable to assess alcohol history related to: Unknown Alcohol intake: never Patient Tobacco Use Status: Never used Tobacco Smoked in Last 30 Days: No e-Cigarette/Vaping Use: Never Used Second Hand Smoke Exposure: No Use of substances other than those prescribed or required for medical reasons: No Advance Directives: No Advance Directives Information Provided: Yes Do you have a plan to hurt others: No Plan service: No Current occupational status: employed and disabled 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 HEENT: ?NC, AT. MMM. EOMI, clear conjunctiva, oropharynx clear. NECK: ?Supple without lymphadenopathy.? No stiffness or restricted ROM. HEART:? Normal rate and regular rhythm, normal S1/S2, no m/r/g LUNGS:? CTAB, moving air well. No crackles or wheezes are heard. ABDOMEN: ?Soft, nontender, nondistended with good bowel sounds heard. BACK: No CVAT, no obvious deformity. EXTREMITIES: ?Without cyanosis, clubbing or edema. Left upper extremity without edema, no erythema, no pain with palpation, SILT, strength 5/5 bilaterally, radial pulses 2+ bilaterally, ROM intact, no pain with flexion or extension NEUROLOGICAL: ?Grossly nonfocal, negative pronator drift, no speech slurring, no facial drooping, strength 5/5 bilateral upper extremities, strength 5/5 bilateral lower extremities, I observed the patient ambulating, without ataxic gait. Alert and oriented, moving all 4 extremities. Skin: ?Warm and dry without any rash. NIH Stroke Scale Internal: Initial- Upon Arrival Time: 09:00 Level of Consciousness: Alert Level of Consciousness Questions: Answers both questions correctly Level of Consciousness Commands: Performs both tasks correctly Best Gaze: Normal Visual: No visual loss Facial Palsy: Normal Motor Arm (Right): No drift Motor Arm (Left): No drift Motor Leg (Right): No drift Motor Leg (Left): No drift Limb Ataxia: Absent Best Language: No aphasia Dysarthia: Normal Extinction and Inattention: No abnormality Medical Decision Making Medical Decision Making MDM Narrative: 64-year-old female with medical history of GERD, HTN, hypothyroidism, ID T2DM, CAD s/p LAD stent (10/2024) HFpEF, HLD, dermatomyositis presents to the ED due to electrical feeling in the left arm. Patient states she could not sleep last night at around 2 a.m. felt an electrical shock sensation in her L arm. Patient states she always has some pain in her body due to dermatomyositis but this pain is different due to the electrical sensation. Patient currently receiving IVIG infusions with rheumatology, last infusion was yesterday (07/02). Patient denies recent fall/injury/trauma- less likely fracture/dislocation VSS, BP of 151/58, pulse rate 78 beats per minute, respiratory rate of 16, afebrile with oral temp of 98.7, O2 saturation 99 percent on room air. Physical exam without neurological deficits, no speech slurring, no aphasia, no dysarthria, no facial drooping, strength 5/5 bilaterally of upper and lower extremities SILT, negative pronator drift, observed patient ambulating without ataxic gait, with appropriate speed, EOMI, pupils responding to consensual light reflex, accommodation, appropriate [id number] testing, no dizziness, no headache- less likely stroke Left arm without dermatomal pattern rash- less likely Herpes zoster EKG with normal sinus rhythm, no ST-elevation/depression indicative of ischemia, initial troponin WNL at 4.3, 2nd troponin WNL at 4.9, patient without chest pain- less likely ACS At this time I believe left arm pain is due to some type of musculoskeletal pain, may be adverse effect from IVIG infusion which patient received yesterday, (07/07) as patient does report she has some pain after infusions, and does have history of muscle/bone pain that she continues to see rheumatology for. I counseled patient to follow up with her primary care provider and her tubular riveter for further evaluation of left arm pain. Differential Diagnosis Differential Diagnoses: The differential diagnosis associated with the presentation includes Stroke ACS Herpes zoster shoulder fracture shoulder dislocation musculoskeletal pain Admission/Observation Consideration of admission/observation: Escalation of care including admission/observation considered Lab Data MDM Lab Attestation statement: I reviewed the patient's lab results. 07/08/25 05:46 07/08/25 05:46 Labs: Lab Results 07/08/25 07/08/25 Range/Units 05:46 08:38 WBC 6.3 (4.8-10.8) X10*3/uL RBC 4.51 (4.20-5.50) X10*6/uL Hgb 12.1 (12.0-16.0) g/dl Hct 36.7 L (37.0-47.0) % MCV 81.4 (80.0-98.0) fL MCH 26.8 L (27.0-33.0) pg MCHC 33.0 (31.0-35.0) g/dl RDW 15.5 (11.0-16.0) % Plt Count 362 (160-400) X10*3/uL MPV 8.3 L (9.4-12.3) fL Immature Gran % (Auto) 0.3 (0.0-0.4) % Neut % (Auto) 71.8 (45-73) % Lymph % (Auto) 16.6 L (20-40) % Travis % (Auto) 9.4 (2-11) % Eos % (Auto) 1.4 (0-4) % Baso % (Auto) 0.5 (0-2) % Lymph # (Auto) 1.0 L (1.2-4.9) X10*3/uL Travis # (Auto) 0.6 (0.1-1.2) X10*3/uL Eos # (Auto) 0.1 (0.0-0.4) X10*3/uL Baso # (Auto) 0.0 (0.0-0.2) X10*3/uL Abs Immat Gran (auto) 0.02 (0.00-0.03) X10*3/uL Absolute Neuts (auto) 4.5 (2.0-8.3) x10*3/uL Absolute Nucleated RBC 0.000 (0.0-0.012) X10*3/uL Nucleated RBC % (auto) 0.0 (0.0-0.2) /100WBC Sodium 136 (135-145) mmol/L Potassium 5.1 D (3.3-5.1) mmol/L Chloride 105 (96-108) mmol/L Carbon Dioxide 22 (22-29) mmol/L Anion Gap 14 (12-20) BUN 16 (9-16) mg/dL Creatinine 0.64 (0.5-1.4) mg/dL Estim Creat Clear Calc 78.6 Estimated GFR > 60 Random Glucose 138 H (60-115) mg/dL Calcium 10.0 D (8.4-10.2) mg/dL Total Bilirubin 0.3 (0.0-1.0) mg/dL Direct Bilirubin 0.1 (0.0-0.5) mg/dL AST 45 H (5-31) U/L ALT 26 (0-31) U/L Alkaline Phosphatase 65 (39-117) U/L Troponin I High Sens 4.3 4.9 (<3.5-17.0) ng/L Total Protein 10.5 H (6.5-8.0) g/dL Albumin 3.7 (3.5-5.0) g/dL Independent Interpretation I performed an independent interpretation of an: EKG Interpretation: I personally interpreted the EKG which reveals a normal sinus rhythm without ST elevation/depression Vent. Rate : 91 BPM Atrial Rate : 91 BPM P-R Int : 124 ms QRS Dur : 82 ms QT Int : 340 ms P-R-T Axes : 40 9 61 degrees QTcB Int : 418 ms Normal sinus rhythm Nonspecific ST abnormality Abnormal ECG When compared with ECG of 13-Apr-2025 12:38, No significant change was found External Record Review External record reviewed: Inpatient record, Office record and Outpatient record Chronic Conditions Patient?s care impacted by: Diabetes, Hypertension and Other (hFpEF, HLD, hypothyroidism, dermatomyositis) Discharge Plan Discharge Clinical Impression: Arm pain, left Patient Disposition: Home, Self-Care Instructions: Arm Pain (ED) Additional Instructions: You were evaluated in the ED today due to left arm pain. Your blood work did not reveal any acute emergent process, no evidence of electrolyte abnormality. Your EKG showed normal sinus rhythm, your troponins which is an enzyme that your heart gives off under damage or stress were negative. Your physical exam was reassuring as you had appropriate strength, range of motion, and sensation of your left arm. Please follow up with your primary care doctor and your tubular riveter for further evaluation of your left arm pain. Please return to the emergency department if you experience fevers over 100.4 degrees, chills, increased pain of your left arm, weakness of your left arm, facial drooping, speech slurring, chest pain, shortness of breath or any other new/worsening/concerning symptoms Prescriptions: No Action (DME) pen needle, diabetic [BD Corin 2nd Gen Pen Needle] 32 gauge x 5/32 needle See Rx Instructions .MEDSUPPLY Qty: 100 4RF Rx Instructions: once a day (DME) FreeStyle Lite Strips Strip See Rx Instructions .ROUTE .MEDSUPPLY Qty: 100 5RF Rx Instructions: 3 times a day (DME) blood-glucose meter [FreeStyle Lite Meter] Kit See Rx Instructions .Route Qty: 1 0RF Rx Instructions: As directed TID (DME) blood pessure cuff See Rx Instructions .Route .MEDSUPPLY Qty: 1 0RF Rx Instructions: As directed (DME) pen needle, diabetic [BD Ultra-Fine Corin Pen Needle] 32 gauge x 5/32 needle See Rx Instructions .Route Qty: 100 1RF Rx Instructions: As directed (DME) cane Device See Rx Instructions .Route Qty: 1 0RF Rx Instructions: As directed fluoxetine 10 mg capsule 10 mg PO DAILY Qty: 90 1RF metformin 1,000 mg tablet 1,000 mg PO BID Qty: 180 1RF dapagliflozin propanediol [Farxiga] 10 mg tablet 10 mg PO DAILY Qty: 90 0RF (DME) lancets [TRUEplus Lancets] 33 gauge misc See Rx Instructions .ROUTE TID Qty: 100 11RF Rx Instructions: As directed check BS TID levothyroxine 150 mcg tablet 150 mcg PO DAILY@0600 Qty: 30 4RF losartan 25 mg tablet 25 mg PO DAILY Qty: 90 0RF ferrous sulfate 325 mg (65 mg iron) Tablet 325 mg PO BID Qty: 60 6RF Brilinta 90 mg tablet 90 mg PO BID Qty: 60 11RF Rx Instructions: started 10/2024 (DME) lancets [FreeStyle Lancets] 28 gauge misc See Rx Instructions .ROUTE .MEDSUPPLY Qty: 100 11RF Rx Instructions: As directed three times a day (DME) FreeStyle Control Solution See Rx Instructions .ROUTE .MEDSUPPLY Qty: 1 Rx Instructions: As directed (DME) pen needle, diabetic [BD Ultra-Fine Corin Pen Needle] 32 gauge x 5/32 needle See Rx Instructions .ROUTE .MEDSUPPLY Qty: 100 3RF Rx Instructions: As directed once daily sodium,potassium,mag sulfates [Suprep Bowel Prep Kit] 17.5-3.13-1.6 gram recon soln See Rx Instructions PO .COMPLEX Qty: 354 0RF Rx Instructions: DILUTE; drink 1/2 at 6-8 pm and half at 11 PM- 1AM prednisone 5 mg tablet 5 mg PO DIRECTED Qty: 150 0RF Rx Instructions: Take 3 tablets daily for 4 weeks then 2 tablets daily for 4 weeks melatonin 5 mg tablet PO melatonin 10 mg capsule 10 mg PO BEDTIME PRN (Reason: sleep) Qty: 30 7RF isosorbide mononitrate 30 mg tablet extended release 24 hr 30 mg PO DAILY Qty: 90 1RF aspirin [Adult Low Dose Aspirin] 81 mg tablet,delayed release (DR/EC) 81 mg PO DAILY Qty: 90 3RF metoprolol succinate 50 mg tablet extended release 24 hr 50 mg PO DAILY Qty: 90 3RF insulin lispro [Humalog KwikPen Insulin] 100 unit/mL insulin pen See Rx Instructions subcut USEASDIRECTD Qty: 15 3RF Rx Instructions: inject according to sliding scale subcutaneously use as directed; < 60 drink juice, 61- 150 no insulin, 151- 230 2 u , 231- 280 4 u, 281-330 6 u , 331-380 8 u and > 380 use 10 u use before lunch insulin glargine [Lantus Solostar U-100 Insulin] 100 unit/mL (3 mL) insulin pen 9 unit subcut DAILY 30 Days Qty: 2.7 3RF Repatha Syringe 140 mg/mL syringe 140 mg subcut Q2W Qty: 1 0RF prednisone 1 mg tablet 1 mg PO .COMPLEX Qty: 150 1RF Rx Instructions: 1 mg orally; take 4 tablets daily for 4 weeks then 3 tablets daily for 4 weeks then 2 tablets daily for 4 weeks Print Language: Belarusian
[2025-07-08 09:10] LABS: Troponin-I High Sensitivity 4.9 ng/L (<3.5-17.0)
[2025-07-08 09:12] VITALS: BP 151/58; PULSE 78; RESP 16; TEMP 37.1; O2SAT 99
[2025-07-08 09:52] VITALS: BP 151/58; PULSE 87; RESP 16; TEMP 37; O2SAT 98
== END 2025-07-08 09:55 | disposition home or self-care (01) ==
PROVIDERS: Emergency Provider Emergency Medicine; PCP Internal Medicine
DX: M79.602 Pain in left arm (principal); R94.31 Abnormal electrocardiogram [ECG] [EKG]; E11.9 Type 2 diabetes mellitus without complications; I10 Essential (primary) hypertension; I25.10 Atherosclerotic heart disease of native coronary artery without angina pectoris; Z79.899 Other long term (current) drug therapy; Z79.4 Long term (current) use of insulin
CPT/HCPCS: 36415; 80048; 80076; 84484; 85025; 93005; 99283; 99284

== ENCOUNTER → 2025-07-08 05:34 | Outpatient (BNV) | payer OTHER, SELFPAY | PROVIDERS: Emergency Provider Emergency Medicine; PCP Internal Medicine; Visit Provider Internal Medicine Cardiovascular Disease | DX: R94.31 Abnormal electrocardiogram [ECG] [EKG] (principal); I10 Essential (primary) hypertension; M79.602 Pain in left arm | CPT/HCPCS: 93010 ==

== ENCOUNTER 2025-08-03 13:23 | Outpatient (AMB) | payer OTHER, SELFPAY ==
--- NOTE | 2025-08-03 13:47 | A.OFFVIS_ITS ---
Vital Signs 08/03/25 13:56 Height 5 ft 5 in Weight 141 lb 1.533 oz BMI 23.5 BP 174/74 H Blood Pressure Location Lt brachial Position Sitting Pulse 78 Intake Visit Reasons: 5 mo f/u Intake Note: Denise presents in the office as a 5 month follow up. CC: She states that she has a little pains in the stomach Nutrition Internship Required: Yes Nutrition Internship Name: [id number] Allergies penicillin V Allergy (Unknown, Verified 08/03/25 13:59) hives Penicillins (PENICILLINS) Allergy (Unknown, Verified 08/03/25 13:59) RASH,DIZZINESS HPI HPI 5 mo f/u: Details: 63 yr old f here for f/u for abn LFT RECAP: she had chronic AST and ALT elevation. US 09/17- normal echogenicity liver, calcification noted she had epigastric pain for 2 weeks comes in waves worse with food she had nausea she had acid reflux she takes pantoprazole but not taking it for last 3 weeks as she felt it made her bloating she had h pylori in the past she denied diarrhea or constipation I ordered repeat US: 01/20 nml appearing liver and ealstography LFT were high, CK was in thousands she stopped statin but CK remains high she has muscular pains she has epigastric pain and discomfort assoc with nausea taking pantoprazole saw rheum and now getting IVIG INTERIM: supposed to get EGD and colo but cant stop DAPT muscles are better with IVIG she still has epigastric discomfort, but less than before no n/v EXAM: GENERAL: The patient is well developed and nontoxic. VITAL SIGNS:see workflow HEENT: Nonicteric sclerae, PERRLA, EOMI. Oropharynx clear. Moist mucous membranes. Conjunctivae appear well perfused. No thyroid mass. CHEST: Chest wall is nontender. HEART: Regular rate and rhythm without murmurs. LUNGS: Clear to auscultation bilaterally. ABDOMEN: Soft, positive bowel sounds, tender epigastrium , no organomegaly.no flank tenderness SKIN: No rash, no excessive bruising, petechiae, or purpura. NEUROLOGIC: Cranial nerves II-XII intact without motor/sensory deficit. Psych: normal affect A/P: 1/ Epigastric pain, plan was for EGD and colo but on hold due to CAD and DAPT 2/ Myositis ?autoimmune or due to statin use PLAN: 1/ EGD and colonoscopy---suprep--r/o neoplasia [facility] Medical History Dermatomyositis Elevated CK CAD (coronary artery disease) STEMI (ST elevation myocardial infarction) GERD (gastroesophageal reflux disease) Physical exam, pre-employment Sebaceous cyst RUQ pain Cervical polyp Muscle strain of right scapular region H. pylori infection Overweight (BMI 25.0-29.9) Hypertension Hypothyroidism intermediate (current) use of insulin Diabetes type 2, uncontrolled Surgical History Hx of knee surgery History of coronary artery stent placement Hx of tubal ligation Hx of cholecystectomy Family History Unknown No problems noted. 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 Current occupational exposures/hazards: No Cognitive needs: No Hearing needs: No Vision needs: No Female Reproductive History Menstrual Age of Menarche: 12 Physical Exam Vital Signs: Last Vital Signs Pulse 78 08/03/25 13:56 BP 174/74 H 08/03/25 13:56 BMI result Body Mass Index 23.5 Assessment & Plan Assessment & Plan (1) Epigastric pain: Code(s): R10.13 - Epigastric pain Category: Medical Plan: as above Medications: Discontinued sodium,potassium,mag sulfates 17.5-3.13-1.6 gram (Suprep Bowel Prep Kit) Discontinued Reason: Patient Completed Course DILUTE; drink 1/2 at 6-8 pm and half at 11 PM- 1AM 354 mL 0RF prednisone Take 3 tablets daily for 4 weeks then 2 tablets daily for 4 weeks Discontinued Reason: Patient Completed Course 5 mg PO DIRECTED 150 tabs 0RF M33.13 - 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
[2025-08-03 13:56] VITALS: BP 174/74; PULSE 78; BMI 23.5
--- OUTSIDE RECORDS SUMMARY | 2025-08-03 15:40 | XMS_ITS | Encounter Summary ---
Author Organization [email or web address] Address [address] [facility] 7t [place] [address] Care Team Providers Care Glass Unloading Equipment Tender Name Role Phone Kimberley Cunningham RN SECURITY Primary Care Provider Encounter Details Date Type Department Care Team ([facility] st Contact Info) Description 10/12/2023 Abstract [facility] MEDICINE [address] [place], [place] [phone] Sandra Villareal Social History Tobacco Use Types [...] documented as of this encounter Care Teams Glass Unloading Equipment Tender Relationship Specialty Start Date End Date Kimberley Cunningham FNP [address] [place] [address] PCP - General Family Medicine 07/23/22 03/20/24 documented as of this encounter
--- OUTSIDE RECORDS SUMMARY | 2025-08-03 15:40 | XMS_ITS | Encounter Summary ---
Author Organization [facility] Address [address] [facility] 7t [place] [address] Care Team Providers Care Him Assistant Name Role Phone Kimberley Cunningham Primary Care Provider [phone] Encounter Details Date Type Department Care Team (Latest Contact Info) Description 01/07/2020 Abstract [facility] Dental, Provider, DDS Social History [...] on filedocumented in this encounter Care Teams Him Assistant Relationship Specialty Start Date End Date Kimberley Cunningham FNP [address] [place] [address] PCP - General Family Medicine 07/23/22 03/20/24 documented as of this encounter
--- OUTSIDE RECORDS SUMMARY | 2025-08-03 15:40 | XMS_ITS | Encounter Summary ---
Author Organization [employer] Address [address] 7t [place] [address] Care Team Providers Care Reciprocating Drill Operator Name Role Phone Unavailable Primary Care Provider Unavailabl e Reason for Visit * Reason Comments Med Refill Encounter Details Date Type Department Care Team (Late st Contact Info) Description 01/16/2025 Refill [facility] MEDICINE [address] [place] [address] Kimberley Cunningham FNP [address] [place] [address] Type 2 diabetes mellitus with hyperglycemia (CMS/HCC) [...]
--- OUTSIDE RECORDS SUMMARY | 2025-08-03 15:40 | XMS_ITS | Encounter Summary ---
Author Organization [facility] Address [address] [facility] [address] [place] [address] Phone Care Team Providers Care Turf Keeper Name Role Phone Unknown, Unknown Primary Care Provider Qamar byrd Pcp, Unknown Unavailable Unavailable Conor Garcia MD Primary Care Provider [phone] Encounter Details Date Type Department Care Team (Latest Contact Info) Description 04/17/2019 Ancillary Orders [facility] [address] [place] [address] Anson Falcon, DO [address] [place] [address] Chest pain, unspecified type; Palpitations Social History Tobacco Use Types Packs/Day Years Used Date Smoking Tobacco: Never Assessed Comments Unknown Sex and Gender Information Value Date Recorded Sex Assigned at Not on file Legal Sex Female 2:40 PM EDT Gender Identity Not on file Sexual Orientation Not on file documented as of this encounter Plan of Treatment Scheduled Orders Name Type Priority Associated Diagnoses Orde r Schedule Holter Monitor 24 Hours Cardiac Monitors Routine Chest pain, unspecified type Palpitations Expected: 04/17/2019, Expires: 07/18/2019 documented as of this encounter Visit Diagnoses Diagnosis Chest pain, unspecified type Palpitations documented in this encounter Care Teams Turf Keeper Relationship Specialty Start Date End Date Unknown, Unknown, PCP - General 04/09/19 12/15/24 Conor Garcia MD [address] [place] [address] PCP - General Internal Medicine 12/16/24 Pcp, Unknown 04/09/19 documented as of this encounter Additional Source Comments The information contained in this document represents components of the legal health record. It is not the complete legal health record.[facility]
--- OUTSIDE RECORDS SUMMARY | 2025-08-03 15:40 | XMS_ITS | Encounter Summary ---
Author Organization [employer] Address [address] 7t [place] [address] Care Team Providers Care Missile Control Pilot Name Role Phone Unavailable Primary Care Provider Unavailabl e Reason for Visit * Reason Comments Med Refill Encounter Details Date Type Department Care Team ([facility] st Contact Info) Description 05/21/2024 Refill [facility] MEDICINE [address] [place] [address] Kimberley Cunningham FNP [address] [place] [address] Primary hypertension Social History Tobacco Use Types [...] t he electric, gas, oil or water [employer] threatened to shut off services in your [...]
--- OUTSIDE RECORDS SUMMARY | 2025-08-03 15:40 | XMS_ITS | Encounter Summary ---
Author Organization [employer] Address [address] [facility] 7t [place] [address] Care Team Providers Care Ornamental Metal Worker Name Role Phone Kimberley Cunningham Primary Care Provider [phone] Reason for Visit * Reason Comments Med Refill Encounter Details Date Type Department Care Team ([facility] st Contact Info) Description 07/26/2023 Refill [facility] MEDICINE [address] [place] [address] Kimberley Cunningham FNP [address] [place] [address] Depressive disorder Social History Tobacco Use Types [...] documented as of this encounter Care Teams Ornamental Metal Worker Relationship Specialty Start Date End Date Kimberley Cunningham FNP [address] [place] [address] PCP - General Family Medicine 07/23/22 03/20/24 documented as of this encounter
--- OUTSIDE RECORDS SUMMARY | 2025-08-03 15:40 | XMS_ITS | Clinical Summary ---
Author Organization [employer] Address [address] [facility] 7t [place] [address] Care Team Providers Care Turbinated Bone Grinder Name Role Phone Unavailable Primary Care Provider [...] e 2 diabetes mellitus treated with insulin ([facility]) INJECT 8 UNITS SUBCUTANEOUSLY ONCE DAILY IN THE EVENING 15 mL 3 11/01/20 23 Active linaGLIPtin (Tradjenta) 5 MG tabletIndications: Type 2 diabetes mellitus without complication, with long-term current use of insulin ([facility]) TAKE 1 TABLET BY [...] 10 MGIndications:Type 2 diabetes mellitus with hyperglycemia ([facility]) TAKE 1 TABLET BY [...] complication, with long-term current use of insulin ([facility]) TAKE 1 TABLET BY MOUTH TWICE DAILY AT NOON AND IN THE EVENING 180 tablet 1 03/20/20 24 Active lisinopril 20 MG tabletIndications: Primary hypertension TAKE 1 TABLET BY MOUTH AT BEDTIME 90 tablet 2 05/22/20 24 Active FREESTYLE LITE test stripIndications:T ype 2 diabetes mellitus with hyperglycemia ([facility]/HCC) TEST BLOOD SUGAR 3 TIMES [...] -Pt in the process of re-establishing with [facility] Endo -Per last available consult note: -CONT [...] 05/01/20242 024, 12/25/2022, 07/13/2021, Additional history exists Mammogram 10/05/2024 10/05/2022, 04/0 03/2021, 09/26/2019, Additional history exists Eye Exam 01/18/2025 01/18/2024, 12/28, 01/18/2024, Additional history exists Tobacco Screening 01/18/2025 01/18/2024 COVID-19 Vaccine (3 - season) 2025 06/21/2021, 05/24/2021 Influenza Vaccine (#1) 2025 DTaP/Tdap/Td Vaccines (2 [...] complication, with long-term current use of insulin ([facility]) MAMMOGRAM GENERIC Routine 10/05/2022 [...] Legacy Procedure: Mammography Report 1 Kimberley Cunningham HEAD USHER IMG BI PROCEDURES Final Result * LIPID [...] LDL-C. Jesús SS et al. KORTNEY. 2013;310(19): 8715-0911 (http://education.[email or web address]/faq/BCW195) Non-HDL Cholesterol 87 <130 mg/dL (calc) [facility] Comment: For patients with diabetes plus 1 major ASCVD risk factor, treating to a non-HDL-C goal of <100 mg/dL (LDL-C of <70 mg/dL) is considered a therapeutic option. Triglycerides 91 <150 mg/dL [facility] 10/04/2022 8:50 AM EST Kimberley Cunningham HEAD USHER LAB BLOOD ORDERABLES Final Res ult [facility] * MICROALBUMIN, RANDOM (07/13/2021 10:40 AM EDT) Creatinine Urine 30.03 mg/dL [facility] Microalbum/Creati nine Ratio Ur TNP ug/mg cr [facility] Comment: Unable to calculate albumin/creatinine ratio due to low microalbumin or creatinine result. Microalbumin Urine <5.0 mg/L [facility] 07/13/2021 10:4 0 AM EDT Historical Provider HISTORICAL/NON ORDERABLE LABS Final Result Performing Organization Address City/[facility]/ZIP Co de Phone Number [facility] [address] * Pap Smear (03/14/2019) Pap Negative [...] Most Recently Relevant to Health Maintenance Insurance [facility] ST[facility] ADULT
--- OUTSIDE RECORDS SUMMARY | 2025-08-03 15:40 | XMS_ITS | Encounter Summary ---
Author Organization [employer] Address [address] [facility] 7t [place] [address] Care Team Providers Care Claims Agent Right Of Way Name Role Phone Unavailable Primary Care Provider Unavailabl e Reason for Visit * Reason Comments Med Refill Encounter Details Date Type Department Care Team ([facility] st Contact Info) Description 08/15/2024 Refill [facility] MED & PEDS [address] [place] [address] Kimberley Cunningham, ADOPTION COORDINATOR [address] [place] [address] Hypothyroidism, unspecified type Social History Tobacco Use [...]
--- OUTSIDE RECORDS SUMMARY | 2025-08-03 15:40 | XMS_ITS | Encounter Summary ---
Author Organization [employer] Address [address] 7t [place] [address] Care Team Providers Care Mental Health Specialist Name Role Phone Unavailable Primary Care Provider Unavailabl e Reason for Visit * Reason Comments Med Refill Encounter Details Date Type Department Care Team ([facility] st Contact Info) Description 08/12/2024 Refill [facility] MEDICINE [address] [place] [address] Kimberley Cunningham FNP [address] [place] [address] Vitamin D insufficiency Social History Tobacco Use [...] the past 12 months, has t he [employer], gas, oil or water company threatened to [...]
--- OUTSIDE RECORDS SUMMARY | 2025-08-03 15:40 | XMS_ITS | Encounter Summary ---
Author Organization [employer] Address [address] [facility] 7t [place] [address] Care Team Providers Care Analytical Manager Name Role Phone Unavailable Primary Care Provider Unavailabl e Reason for Visit * Reason Comments Med Refill Encounter Details Date Type Department Care Team ([facility] st Contact Info) Description 10/13/2024 Refill [facility] & PEDS [address] [place], [place] [phone] Kimberley Cunningham, EILEEN [address] [place] [address] Type 2 diabetes mellitus without complication, with long-term current use of insulin ([facility]) Social History Tobacco Use Types Packs/Day Years [...] insulin ([facility]) documented in this encounter Additional Health Concerns Assessment Noted Time PHQ-9 Depression Total Score: 2 01/09/20 23 9:19 AM EST documented as of this encounter
--- OUTSIDE RECORDS SUMMARY | 2025-08-03 15:40 | XMS_ITS | Clinical Summary ---
Author Organization [facility] Address [address] [facility] [address] [place] [address] Phone Care Team Providers Care Cook Railroad Name Role Phone Pcp, Unknown Unavailable Unavailable Conor Garcia MD Primary Care Provider [phone] Allergies Active Allergy Reactions Criticality Noted Date [...] Active ferrous sulfate 325 mg (65 mg jamul iron) tablet Take 325 mg by mouth. [...] Type Department Care Team Description 05/13/2025 Telephone [facility] [address] 3rd Floor, [address] [place], [place] [phone] Carl Rosa MD from Last 3 Months [...] - Risk 60-74 years 1-dose series) 2022 INFLUENZA VACCINE (#1) 2025 COVID-19 VACCINE (1 - 2023-2 5 season) 2025 LIPID PANEL 12/18/2025 12/18/2024, 10/04/2022 Adult Td,Tdap [...] unspecified vessel or lesion type, unspecified whether wales or transplanted heart from Last 3 Months or Most Recently Relevant to Health Maintenance Results * (ABNORMAL) Lipid panel (12/18/2024 11:58 AM EST) HDL 43 mg/dL [facility] Comment: Interpretation <40 mg/dL: Low HDL cholesterol (major risk factor for CHD) Greater than or equal to 60 mg/dL: High HDL cholesterol ( negative risk factor for CHD) HDL - cholesterol is affected by a number of factors, e.g. smoking, excerise, hormones, sex and age. CHOLESTEROL 182 0 - 240 mg/dL [facility] TRIGLYCERIDES 185(H) 30 - 160 mg/dL [facility] LDL 102 50 - 129 mg/dL [facility] Comment: LDL levels in terms of risk for coronary heart disease: <100 mg/dL: Optimal 100-129 mg/dL: Near or above optimal 130-159 mg/dL: Borderline high 160-189 mg/dL: High >190 mg/dL: Very High CARDIAC RISK RATIO 4.2 3.3 - 4.4 C [facility] Blood 12/18/2024 11:5 8 AM EST 12/18/2024 12:09 PM EST us Carl Rosa MD LAB BLOOD ORDERABLES Final Re sult [facility] Organization Address City/State/ZIP Co de Phone Number [facility] [address] [place] [address] from Last 3 Months or Most Recently Relevant to Health Maintenance Insurance [employer] [facility] [place] [address] [address] ACO Care Teams [employer] Relationship Specialty Start Date End Date Conor Garcia MD [address] [place] [address] PCP - General Internal Medicine 12/16/24 Pcp, Unknown 04/09/19 Additional Source Comments The information contained in this document represents components of the legal health record. It is not the complete legal health record.[facility]
--- OUTSIDE RECORDS SUMMARY | 2025-08-03 15:40 | XMS_ITS | Encounter Summary ---
Author Organization [employer] Address [address] [facility] 7t [place] [address] Care Team Providers Care Payer Specialist Name Role Phone Kimberley Cunningham [employer] Primary Care Provider [phone] Reason for Visit * Reason Comments Med Refill Encounter Details Date Type Department Care Team ([facility] st Contact Info) Description 09/08/2023 Refill [facility] MEDICINE [address] [place], [place] [phone] Jojo Washburn MD [address] [place], [place] [phone] Depressive disorder Social History Tobacco Use Types [...] documented as of this encounter Care Teams Payer Specialist Relationship Specialty Start Date End Date Kimberley Cunningham FNP [address] [place] [address] PCP - General Family Medicine 07/23/22 03/20/24 documented as of this encounter
--- OUTSIDE RECORDS SUMMARY | 2025-08-03 15:40 | XMS_ITS | Encounter Summary ---
Author Organization [facility] Address [address] [facility] [address] [place] [address] Phone Care Team Providers Care Clinical Program Director Name Role Phone Unknown, Unknown Primary Care Provider Qamar byrd Pcp, Unknown Unavailable Unavailable Conor Garcia MD Primary Care Provider [phone] Encounter Details Date Type Department Care Team (Latest Contact Info) Description 04/10/2019 Ancillary Orders [facility] [address] [place] [address] [place] [address] Anson Falcon, DO [address] [place] [address] Palpitations; Other chest pain Social History Tobacco Use Types Packs/Day Years Used Date Smoking Tobacco: Never Assessed Comments Unknown Sex and Gender Information Value Date Recorded Sex Assigned at Not on file Legal Sex Female 2:40 PM EDT Gender Identity Not on file Sexual Orientation Not on file documented as of this encounter Plan of Treatment Not on file documented as of this encounter Results * Holter Monitor 24 Hours (04/10/2019 8:19 AM EDT) Anatomical Region Laterality Modality Heart Other Narrative 04/10/2019 12:42 PM EDT 24-hour monitor: Baseline rhythm is sinus with a minimum heart rate of 50, maximum 159, average 78 bpm. Rare PACs and PVCs present. There was no diary returned. There were no patient event markers. Impression: Normal 24-hour monitor. No diary returned, therefore no correlation with symptoms. Procedure Note Emre Pennington MD - 04/10/2019 24-hour monitor: Baseline rhythm is sinus with a minimum heart rate of 50,maximum 159, average 78 bpm. Rare PACs and PVCs present. There was nodiary returned. There were no patient event markers. Impression: Normal 24-hour monitor. No diary returned, therefore nocorrelation with symptoms. Anson Falcon DO CV [facility] ORDERABLE S Final Result documented in this encounter Visit Diagnoses Diagnosis Palpitations Other chest pain Palpitations Other chest pain documented in this encounter Care Teams Clinical Program Director Relationship Specialty Start Date End Date Unknown, Unknown, MD PCP - General 04/09/19 12/15/24 Po, Conor Carcamo MD [address] [place] [address] Drive [address] [place] [address] PCP - General Internal Medicine 12/16/24 Pcp, Unknown 04/09/19 documented as of this encounter Additional Source Comments The information contained in this document represents components of the legal health record. It is not the complete legal health record.[facility]
--- OUTSIDE RECORDS SUMMARY | 2025-08-03 15:40 | XMS_ITS | Encounter Summary ---
Author Organization [employer] Address [address] 7t [place] [address] Care Team Providers Care Steam Fitter Helper Name Role Phone Unavailable Primary Care Provider Unavailabl e Reason for Visit * Reason Comments Med Refill Encounter Details Date Type Department Care Team ([facility] st Contact Info) Description 05/20/2024 Refill [facility] MEDICINE [address] [place] [address] Kimberley Cunningham FNP [address] [place] [address] Primary hypertension Social History Tobacco Use Types [...] t he electric, gas, oil or water [employer] threatened to shut off services in your [...]
--- OUTSIDE RECORDS SUMMARY | 2025-08-03 15:40 | XMS_ITS | Encounter Summary ---
Author Organization [employer] Address [address] [place] [address] Care Team Providers Care Mechanical Product Engineer Name Role Phone Unavailable Primary Care Provider Unavailabl e Reason for Visit * Reason Comments Med Refill Encounter Details Date Type Department Care Team ([facility] st Contact Info) Description 11/13/2024 Refill [facility] MED[facility]INE [address] [place] [address] Kimberley Cunningham FNP [address] [place] [address] Type 2 diabetes mellitus without complication, with long-term current use of insulin ([facility]) Social History Tobacco Use Types [...] complication, with long-term current use of insulin ([facility]) documented in this encounter Additional Health Concerns Assessment Noted Time PHQ-9 Depression Total Score: 2 01/09/20 23 9:19 AM EST documented as of this encounter
--- OUTSIDE RECORDS SUMMARY | 2025-08-03 15:40 | XMS_ITS | Encounter Summary ---
Author Organization [employer] Address [address] [facility] 7t [place] [address] Care Team Providers Care Shoulder Puncher Name Role Phone Unavailable Primary Care Provider Unavailabl e Reason for Visit * Reason Comments Med Refill Encounter Details Date Type Department Care Team ([facility] st Contact Info) Description 09/10/2024 Refill [facility] CHC MED & PEDS [address] [place] [address] Kimberley Cunningham, EILEEN 505 [place] [address] Depressive disorder Social History Tobacco Use Types [...] t he electric, gas, oil or water [employer] threatened to shut off services in your [...]
--- OUTSIDE RECORDS SUMMARY | 2025-08-03 15:40 | XMS_ITS | Encounter Summary ---
Author Organization [employer] Address [address] [facility] [address] 7t [place] [address] Care Team Providers Care Teachers Aide Name Role Phone Unavailable Primary Care Provider Unavailabl e Reason for Visit * Reason Comments Med Refill Encounter Details Date Type Department Care Team ([facility] st Contact Info) Description 06/17/2024 Refill [facility] MEDICINE 230 [place] [address] Kimberley Cunningham FNP [address] [place] [address] Other hyperlipidemia; Type 2 diabetes mellitus with [...]
--- OUTSIDE RECORDS SUMMARY | 2025-08-03 15:40 | XMS_ITS | Clinical Summary ---
Author Organization [facility] Facility Address [address] [place] [address] Care Team Providers Care Nicker Name Role Phone Zaria Milan MD Primary Care Provider [phone] Social History Tobacco Use Types Packs/Day Years [...] patient's age to complete this topic Insurance * Guarantor: Denise Pearson Account Type Relation to Patient Date of Phone Billing Address Personal/Family Self [address] [place] [address] [facility] Medicaid Care Teams Nicker Relationship Specialty Start Date End Date Zaria Milan MD [address] [place], [place] PCP - General Internal Medicine 02/16/25
--- OUTSIDE RECORDS SUMMARY | 2025-08-03 15:40 | XMS_ITS | Encounter Summary ---
Author Organization [employer] [facility] Address [address] [facility] 7t [place] [address] Care Team Providers Care Food Service Utility Worker Name Role Phone Kimberley Cunningham Primary Care Provider [phone] Encounter Details Date Type Department Care Team (Latest Contact Info) Description 01/20/2021 Abstract [facility] CONVERSIONS Dental, Provider, [...] on filedocumented in this encounter Care Teams Food Service Utility Worker Relationship Specialty Start Date End Date Kimberley Cunningham FNP [address] [place] [address] PCP - General Family Medicine 07/23/22 03/20/24 documented as of this encounter
--- OUTSIDE RECORDS SUMMARY | 2025-08-03 15:40 | XMS_ITS | Encounter Summary ---
Author Organization [employer] Address [address] [facility] [address] 7t [place] [address] Care Team Providers Care Drapery And Upholstery Estimator Name Role Phone Unavailable Primary Care Provider Unavailabl e Reason for Visit * Reason Comments Med Refill Encounter Details Date Type Department Care Team (Late st Contact Info) Description 01/12/2025 Refill [facility] MEDICINE 230 [place] [address] Kimberley Cunningham FNP [address] [place] [address] Type 2 diabetes mellitus with hyperglycemia (CMS/HCC) [...]
== END 2025-08-03 14:20 | disposition home or self-care (01) ==
LOC: HO.HGI 13:24
PROVIDERS: PCP Internal Medicine; Visit Provider Internal Medicine Gastroenterology
DX: R10.13 Epigastric pain (principal)
CPT/HCPCS: 99213

== ENCOUNTER → 2025-08-03 13:23 | Outpatient (BNVA) | payer OTHER, SELFPAY | PROVIDERS: PCP Internal Medicine; Visit Provider Internal Medicine Gastroenterology | DX: R10.13 Epigastric pain (principal); M33.13 Other dermatomyositis without myopathy | CPT/HCPCS: 99212 ==

== ENCOUNTER 2025-08-06 10:52 | Outpatient (REF) | payer OTHER, SELFPAY ==
[2025-08-06 12:59] LABS: Appearance Urine Clear; Glucose Urine UA >=1000 mg/dL (Negative); PH 5.5 (5.0-9.0); Specific Gravity - Urine 1.025 (1.005-1.025); UMIC TRIGGER UACC YES
--- OUTSIDE RECORDS SUMMARY | 2025-08-06 14:50 | XMS_ITS | Encounter Summary ---
Author Organization [employer] Address [address] 7t [place] [address] Care Team Providers Care Players Club Representative Name Role Phone Unavailable Primary Care Provider Unavailabl e Reason for Visit * Reason Comments Med Refill Encounter Details Date Type Department Care Team ([facility] st Contact Info) Description 05/20/2024 Refill [facility] MEDICINE 230 [place] [address] Kimberley Cunningham FNP [address] [place] [address] Primary hypertension Social History Tobacco Use Types [...] t he electric, gas, oil or water [employer] threatened to shut off services in your [...]
--- OUTSIDE RECORDS SUMMARY | 2025-08-06 14:50 | XMS_ITS | Encounter Summary ---
Author Organization [employer] Address [address] [facility] [address] 7t [place] [address] Care Team Providers Care Drawing Tender Name Role Phone Unavailable Primary Care Provider Unavailabl e Reason for Visit * Reason Comments Med Refill Encounter Details Date Type Department Care Team ([facility] st Contact Info) Description 05/21/2024 Refill [facility] MEDICINE 230 [place] [address] Kimberley Cunningham FNP [address] [place] [address] Primary hypertension Social History Tobacco Use Types [...] t he electric, gas, oil or water [employer] threatened to shut off services in your [...]
--- OUTSIDE RECORDS SUMMARY | 2025-08-06 14:50 | XMS_ITS | Encounter Summary ---
Author Organization [employer] Address [address] [facility] [address] [facility] [address] 7t [place] [address] Care Team Providers Care Certified Financial Planner Name Role Phone Unavailable Primary Care Provider Unavailabl e Reason for Visit * Reason Comments Med Refill Encounter Details Date Type Department Care Team (Late st Contact Info) Description 01/16/2025 Refill [facility] MEDICINE 230 [place] [address] Kimberley Cunningham FNP [address] [place] [address] Type 2 diabetes mellitus with hyperglycemia (CMS/HCC) [...]
--- OUTSIDE RECORDS SUMMARY | 2025-08-06 14:50 | XMS_ITS | Clinical Summary ---
Author Organization [facility] Address [address] [facility] [address] [place] [address] Phone Care Team Providers Care Aeronautical Engineering Teacher Name Role Phone Pcp, Unknown Unavailable Unavailable Conor Garcia MD Primary Care Provider [phone] Allergies Active Allergy Reactions Criticality Noted Date [...] Active ferrous sulfate 325 mg (65 mg [place] iron) tablet Take 325 mg by mouth. [...] Type Department Care Team Description 05/13/2025 Telephone [facility] [address] [facility] 3rd Floor, [address] [place], [place] [phone] Carl Rosa MD from Last 3 Months [...] unspecified vessel or lesion type, unspecified whether huslia or transplanted heart from Last 3 Months or Most Recently Relevant to Health Maintenance Results * (ABNORMAL) Lipid panel (12/18/2024 11:58 AM EST) HDL 43 mg/dL [facility] Comment: Interpretation <40 mg/dL: Low HDL cholesterol (major risk factor for CHD) Greater than or equal to 60 mg/dL: High HDL cholesterol ( negative risk factor for CHD) HDL - cholesterol is affected by a number of factors, e.g. smoking, excerise, hormones, sex and age. CHOLESTEROL 182 0 - 240 mg/dL [facility] TRIGLYCERIDES 185(H) 30 - 160 mg/dL [facility] LDL 102 50 - 129 mg/dL [facility] Comment: LDL levels in terms of risk for coronary heart disease: <100 mg/dL: Optimal 100-129 mg/dL: Near or above optimal 130-159 mg/dL: Borderline high 160-189 mg/dL: High >190 mg/dL: Very High CARDIAC RISK RATIO 4.2 3.3 - 4.4 C [facility] Blood 12/18/2024 11:5 8 AM EST 12/18/2024 12:09 PM EST us Carl Rosa MD LAB BLOOD ORDERABLES Final Re sult [facility] Organization Address City/State/ZIP Co de Phone Number [facility] [address] [place] [address] from Last 3 Months or Most Recently Relevant to Health Maintenance Insurance ACO ACO [facility] ACO [facility] [place] [address] [place] [address] ACO Member Subscriber Plan / [facility] Name:Denise Pearson I Relation to Subscriber:Self Name:Denise Pearson I Payer ID:[id number] Group ID:[id number] Type:Medicaid Address: [address] [place] [address] [place] [address] ACO Member Subscriber Plan / [facility]ayer [facility]Present) Name:Denise Pearson I Relation to Subscriber:Self Name:Denise Pearson I Payer ID:[id number] Group ID:[id number] Type:Medicaid Address: [address] [place] [address] Care Teams Aeronautical Engineering Teacher Relationship Specialty Start Date End Date Conor Garcia MD [address] [place] [phone] PCP - General Internal Medicine 12/16/24 Pcp, Unknown 04/09/19 Additional Source Comments The information contained in this document represents components of the legal health record. It is not the complete legal health record.[facility]
--- OUTSIDE RECORDS SUMMARY | 2025-08-06 14:50 | XMS_ITS | Clinical Summary ---
Author Organization [employer] Address [address] [facility] 7t [place] [address] Care Team Providers Care Curriculum Writer Name Role Phone Unavailable Primary Care Provider [...] e 2 diabetes mellitus treated with insulin ([facility]) INJECT 8 UNITS SUBCUTANEOUSLY ONCE DAILY IN THE EVENING 15 mL 3 11/01/20 23 Active linaGLIPtin (Tradjenta) 5 MG tabletIndications: Type 2 diabetes mellitus without complication, with long-term current use of insulin ([facility]) TAKE 1 TABLET BY [...] 10 MGIndications:Type 2 diabetes mellitus with hyperglycemia ([facility]) TAKE 1 TABLET BY [...] complication, with long-term current use of insulin ([facility]) TAKE 1 TABLET BY MOUTH TWICE DAILY AT NOON AND IN THE EVENING 180 tablet 1 03/20/20 24 Active lisinopril 20 MG tabletIndications: Primary hypertension TAKE 1 TABLET BY MOUTH AT BEDTIME 90 tablet 2 05/22/20 24 Active FREESTYLE LITE test stripIndications:T ype 2 diabetes mellitus with hyperglycemia ([facility]/HCC) TEST BLOOD SUGAR 3 TIMES A [...] -Pt in the process of re-establishing with [facility] -Per last available consult note: -CONT [...] complication, with long-term current use of insulin ([facility]) MAMMOGRAM GENERIC Routine 10/05/2022 [...] Legacy Procedure: Mammography Report 1 Kimberley Cunningham DIRECTOR OF EVENT MARKETING IMG BI PROCEDURES Final Result * LIPID [...] LDL-C. Jesús SS et al. KORTNEY. 2013;310(19): 4429-0313 (http://education.Xen[employer].Enable Injections/faq/AMR435) Non-HDL Cholesterol 87 <130 mg/dL (calc) [facility] Comment: For patients with diabetes plus 1 major ASCVD risk factor, treating to a non-HDL-C goal of <100 mg/dL (LDL-C of <70 mg/dL) is considered a therapeutic option. Triglycerides 91 <150 mg/dL [facility] 10/04/2022 8:50 AM EST Kimberley Cunningham DIRECTOR OF EVENT MARKETING LAB BLOOD ORDERABLES Final Res ult [facility] * MICROALBUMIN, RANDOM (07/13/2021 10:40 AM EDT) Creatinine Urine 30.03 mg/dL [facility] Microalbum/Creati nine Ratio Ur TNP ug/mg cr [facility] Comment: Unable to calculate albumin/creatinine ratio due to low microalbumin or creatinine result. Microalbumin Urine <5.0 mg/L [facility] 07/13/2021 10:4 0 AM EDT Historical Provider HISTORICAL/NON ORDERABLE LABS Final Result Performing Organization Address City/[facility]/ZIP Co de Phone Number [facility] [address] * Pap Smear (03/14/2019) Pap Negative [...] Most Recently Relevant to Health Maintenance Insurance [facility] STAND ADULT
--- OUTSIDE RECORDS SUMMARY | 2025-08-06 14:50 | XMS_ITS | Clinical Summary ---
Author Organization [facility] Facility Address [address] [place] [address] Care Team Providers Care Youth Agent Name Role Phone Zaria Milan MD Primary Care Provider [phone] Social History Tobacco Use Types Packs/Day Years [...] age to complete this topic Insurance [facility] Medicaid Care Teams Youth Agent Relationship Specialty Start Date End Date Zaria Milan MD [address] [place], [place] PCP - General Internal Medicine 02/16/25
--- OUTSIDE RECORDS SUMMARY | 2025-08-06 14:50 | XMS_ITS | Encounter Summary ---
Author Organization [employer] Address [address] [facility] [address] 7t [place] [address] Care Team Providers Care Header Machine Operator Name Role Phone Unavailable Primary Care Provider Unavailabl e Reason for Visit * Reason Comments Med Refill Encounter Details Date Type Department Care Team ([facility] st Contact Info) Description 08/12/2024 Refill [facility] MEDICINE 230 [place] [address] Kimberley Cunningham FNP [address] [place] [address] Vitamin D insufficiency Social History Tobacco Use [...] the past 12 months, has t he [employer], gas, oil or water company threatened to [...]
--- OUTSIDE RECORDS SUMMARY | 2025-08-06 14:51 | XMS_ITS | Encounter Summary ---
Author Organization [employer] Address [address] [facility] [address] 7t [place] [address] Care Team Providers Care Group Home Counselor Name Role Phone Unavailable Primary Care Provider Unavailabl e Reason for Visit * Reason Comments Med Refill Encounter Details Date Type Department Care Team ([facility] st Contact Info) Description 06/17/2024 Refill [facility] MEDICINE 230 [place] [address] Kimberley Cunningham FNP [address] [place] [address] Other hyperlipidemia; Type 2 diabetes mellitus with [...]
--- OUTSIDE RECORDS SUMMARY | 2025-08-06 14:51 | XMS_ITS | Encounter Summary ---
Author Organization [employer] [facility] Address [address] [facility] 7t [place] [address] Care Team Providers Care Mucking Machine Operator Name Role Phone Kimberley Cunningham Primary Care Provider [phone] Encounter Details Date Type Department Care Team (Latest Contact Info) Description 01/20/2021 Abstract [facility] CONVERSIONS Dental, Provider, DDS Social History [...] on filedocumented in this encounter Care Teams Mucking Machine Operator Relationship Specialty Start Date End Date Kimberley Cunningham FNP [address] [place] [address] PCP - General Family Medicine 07/23/22 03/20/24 documented as of this encounter
--- OUTSIDE RECORDS SUMMARY | 2025-08-06 14:51 | XMS_ITS | Encounter Summary ---
Author Organization [employer] Address [address] [facility] 7t [place] [address] Care Team Providers Care Technical Writer Name Role Phone Unavailable Primary Care Provider Unavailabl e Reason for Visit * Reason Comments Med Refill Encounter Details Date Type Department Care Team ([facility] st Contact Info) Description 09/10/2024 Refill [facility] CHC MED & PEDS 505 [place], [place] [phone] Kimberley Cunningham, EILEEN [address] [place] [address] Depressive disorder Social History Tobacco Use Types [...] t he electric, gas, oil or water [employer] threatened to shut off services in your [...]
--- OUTSIDE RECORDS SUMMARY | 2025-08-06 14:51 | XMS_ITS | Encounter Summary ---
Author Organization [employer] Address [address] [facility] 7t [place] [address] Care Team Providers Care White Sugar Supervisor Name Role Phone Kimberley Cunningham SUPERVISOR GROVE Primary Care Provider [phone] Reason for Visit * Reason Comments Med Refill Encounter Details Date Type Department Care Team ([facility] st Contact Info) Description 09/08/2023 Refill [facility] MEDICINE 230 [place], [place] [phone] Jojo Washburn MD [address] [place], [place] [phone] Depressive disorder Social History Tobacco Use Types [...] documented as of this encounter Care Teams White Sugar Supervisor Relationship Specialty Start Date End Date Kimberley Cunningham FNP [address] [place] [address] PCP - General Family Medicine 07/23/22 03/20/24 documented as of this encounter
--- OUTSIDE RECORDS SUMMARY | 2025-08-06 14:51 | XMS_ITS | Encounter Summary ---
Author Organization [employer] Address [address] [facility] 7t [place] [address] Care Team Providers Care Mat Machine Tender Name Role Phone Kimberley Cunningham Primary Care Provider [phone] Reason for Visit * Reason Comments Med Refill Encounter Details Date Type Department Care Team ([facility] st Contact Info) Description 07/26/2023 Refill [facility] MEDICINE 230 [place] [address] Kimberley Cunningham FNP 505 [place] [address] Depressive disorder Social History Tobacco Use Types [...] documented as of this encounter Care Teams Mat Machine Tender Relationship Specialty Start Date End Date Kimberley Cunningham FNP 230 [place] [address] PCP - General Family Medicine 07/23/22 03/20/24 documented as of this encounter
--- OUTSIDE RECORDS SUMMARY | 2025-08-06 14:51 | XMS_ITS | Encounter Summary ---
Author Organization [employer] Address [address] 7t [place] [address] Care Team Providers Care Director Social Welfare Name Role Phone Unavailable Primary Care Provider Unavailabl e Reason for Visit * Reason Comments Med Refill Encounter Details Date Type Department Care Team ([facility] st Contact Info) Description 11/13/2024 Refill [facility] MEDICINE 230 [place] [address] Kimberley Cunningham FNP [address] [place] [address] Type 2 diabetes mellitus without complication, with long-term current use of insulin ([facility]) Social History Tobacco [...] complication, with long-term current use of insulin ([facility]) documented in this encounter Additional Health Concerns Assessment Noted Time PHQ-9 Depression Total Score: 2 01/09/20 23 9:19 AM EST documented as of this encounter
--- OUTSIDE RECORDS SUMMARY | 2025-08-06 14:51 | XMS_ITS | Encounter Summary ---
Author Organization [facility] Address [address] [facility] [address] [place] [address] Phone Care Team Providers Care Anaesthesiologist Name Role Phone Unknown, Unknown Primary Care Provider Qamar byrd Pcp, Unknown Unavailable Unavailable Conor Garcia MD Primary Care Provider [phone] Encounter Details Date Type Department Care Team (Latest Contact Info) Description 04/17/2019 Ancillary Orders [facility] [address] [place] [address] Anson Falcon, DO [address] [place] [address] Chest pain, unspecified type; Palpitations Social History [...] Palpitations documented in this encounter Care Teams Anaesthesiologist Relationship Specialty Start Date End Date Unknown, Unknown, PCP - General 04/09/19 12/15/24 Conor Garcia MD [address] [place] [address] PCP - General Internal Medicine 12/16/24 Pcp, Unknown 04/09/19 documented as of this encounter Additional Source Comments The information contained in this document represents components of the legal health record. It is not the complete legal health record.[facility]
--- OUTSIDE RECORDS SUMMARY | 2025-08-06 14:51 | XMS_ITS | Encounter Summary ---
Author Organization [employer] [facility] Address [address] [facility] 7t [place] [address] Care Team Providers Care Employee Wellness/Fitness Coordinator Name Role Phone Kimberley Cunningham Primary Care Provider Encounter Details Date Type Department Care Team (Latest Contact Info) Description 01/07/2020 Abstract [facility] CONVERSIONS Dental, Provider, DDS Social History [...] on filedocumented in this encounter Care Teams Employee Wellness/Fitness Coordinator Relationship Specialty Start Date End Date Kimberley Cunningham FNP 230 [place] [address] PCP - General Family Medicine 07/23/22 03/20/24 documented as of this encounter
--- OUTSIDE RECORDS SUMMARY | 2025-08-06 14:51 | XMS_ITS | Encounter Summary ---
Author Organization [employer] Address [address] [facility] 7t [place] [address] Care Team Providers Care Handkerchief Folder Name Role Phone Kimberley Cunningham FOREIGN LANGUAGE STENOGRAPHER Primary Care Provider [phone] Encounter Details Date Type Department Care Team ([facility] st Contact Info) Description 10/12/2023 Abstract [facility] MEDICINE [address] [place], [place] [phone] Sandra Villareal Social History Tobacco Use Types [...] documented as of this encounter Care Teams Handkerchief Folder Relationship Specialty Start Date End Date Kimberley Cunningham FNP [address] [place] [address] PCP - General Family Medicine 07/23/22 03/20/24 documented as of this encounter
--- OUTSIDE RECORDS SUMMARY | 2025-08-06 14:51 | XMS_ITS | Encounter Summary ---
Author Organization [employer] Address [address] [facility] 7t [place] [address] Care Team Providers Care Mobile Ui Developer Name Role Phone Unavailable Primary Care Provider Unavailabl e Reason for Visit * Reason Comments Med Refill Encounter Details Date Type Department Care Team ([facility] st Contact Info) Description 08/15/2024 Refill [facility] CHC MED & PEDS 505 [place] [address] Kimberley Cunningham, TILER 505 [place] [address] Hypothyroidism, unspecified type Social History Tobacco Use [...]
--- OUTSIDE RECORDS SUMMARY | 2025-08-06 14:51 | XMS_ITS | Encounter Summary ---
Author Organization [employer] Address [address] [facility] 7t [place] [address] Care Team Providers Care Tooling Specialist Name Role Phone Unavailable Primary Care Provider Unavailabl e Reason for Visit * Reason Comments Med Refill Encounter Details Date Type Department Care Team ([facility] st Contact Info) Description 10/13/2024 Refill [facility] MED & PEDS 505 [place], [place] [phone] Kimberley Cunningham, EILEEN 505 [place] [address] Type 2 diabetes mellitus without complication, with long-term current use of insulin ([facility]) Social History Tobacco Use Types [...] complication, with long-term current use of insulin ([facility]) documented in this encounter Additional Health Concerns Assessment Noted Time PHQ-9 Depression Total Score: 2 01/09/20 23 9:19 AM EST documented as of this encounter
--- OUTSIDE RECORDS SUMMARY | 2025-08-06 14:51 | XMS_ITS | Encounter Summary ---
Author Organization [employer] Address [address]t [place] [address] Care Team Providers Care Deck And Hull Assembler Name Role Phone Unavailable Primary Care Provider Unavailabl e Reason for Visit * Reason Comments Med Refill Encounter Details Date Type Department Care Team (Late st Contact Info) Description 01/12/2025 Refill [facility] MEDICINE 230 [place] [address] Kimberley Cunningham FNP [address] [place] [address] Type 2 diabetes mellitus with hyperglycemia (CMS/HCC) [...]
--- OUTSIDE RECORDS SUMMARY | 2025-08-06 14:51 | XMS_ITS | Encounter Summary ---
Author Organization [facility] Address [address] [facility] [address] [facility] [address] [place] [address] Phone Care Team Providers Care Factory Clerk Name Role Phone Unknown, Unknown Primary Care Provider Qamar byrd Pcp, Unknown Unavailable Unavailable Conor Garcia MD Primary Care Provider [phone] Encounter Details Date Type Department Care Team (Latest Contact Info) Description 04/10/2019 Ancillary Orders [facility] [address] [place] [address] [place] [address] Anson Falcon, DO [address] [place] [address] Palpitations; Other chest pain Social History Tobacco [...] pain documented in this encounter Care Teams Factory Clerk Relationship Specialty Start Date End Date Unknown, Unknown, MD PCP - General 04/09/19 12/15/24 Po, Conor Carcamo MD [address] [place] [address] Drive [address] [place] [address] PCP - General Internal Medicine 12/16/24 Pcp, Unknown 04/09/19 documented as of this encounter Additional Source Comments The information contained in this document represents components of the legal health record. It is not the complete legal health record.[facility]
== END 2025-08-06 10:53 | disposition home or self-care (01) ==
LOC: HO.LAB 10:52
PROVIDERS: PCP Internal Medicine; Visit Provider Internal Medicine
DX: R30.0 Dysuria (principal); E03.9 Hypothyroidism, unspecified
CPT/HCPCS: 81001; 81003

== ENCOUNTER 2025-08-28 08:17 | Outpatient (REF) | payer OTHER, SELFPAY ==
--- OUTSIDE RECORDS SUMMARY | 2025-08-28 08:37 | XMS_ITS | Clinical Summary ---
Author Organization [facility] Address [address] [address] [facility] [place] [address] Phone Care Team Providers Care Sales Account Director Name Role Phone Pcp, Unknown Unavailable Unavailable Conor Garcia MD Primary Care Provider [phone] Allergies Active Allergy Reactions Criticality Noted Date [...] Active ferrous sulfate 325 mg (65 mg brevig [place] iron) tablet Take 325 mg by mouth. [...] USE ONCE DAILY WITH INSULIN DIRECTED 10/21/20 24 Active metFORMIN (GLUCOPHAGE) 1000 MG tablet Take 1,000 mg by mouth. 03/20/20 24 Active evolocumab (REPATHA SURECLICK) 140 mg/mL PnIj subcutaneous pen injector Inject 1 mL (140 mg total) under the skin every 14 (fourteen) days. 6 mL 3 12/16/19 25 Active Social History Tobacco Use Types Packs/Day Years [...] unspecified vessel or lesion type, unspecified whether false pass or transplanted heart from Last 3 Months or Most Recently Relevant to Health Maintenance Results * (ABNORMAL) Lipid panel (12/18/2024 11:58 AM EST) HDL 43 mg/dL [facility] Comment: Interpretation <40 mg/dL: Low HDL cholesterol (major risk factor for CHD) Greater than or equal to 60 mg/dL: High HDL cholesterol ( negative risk factor for CHD) HDL - cholesterol is affected by a number of factors, e.g. smoking, excerise, hormones, sex and age. CHOLESTEROL 182 0 - 240 mg/dL [facility] TRIGLYCERIDES 185(H) 30 - 160 mg/dL [facility] LDL 102 50 - 129 mg/dL [facility] Comment: LDL levels in terms of risk for coronary heart disease: <100 mg/dL: Optimal 100-129 mg/dL: Near or above optimal 130-159 mg/dL: Borderline high 160-189 mg/dL: High >190 mg/dL: Very High CARDIAC RISK RATIO 4.2 3.3 - 4.4 C [facility] Blood 12/18/2024 11:5 8 AM EST 12/18/2024 12:09 PM EST Carl Roas MD LAB BLOOD ORDERABLES Final Re sult [facility] [address] [place] [address] from Last 3 Months or Most Recently Relevant to Health Maintenance Insurance [place] [address] [place] [address] ACO [facility] [employer] [place] [address] [place] [address] ACO Care Teams Sales Account Director Relationship Specialty Start Date End Date Conor Garcia MD [address] [place] [address] PCP - General Internal Medicine 12/16/24 Pcp, Unknown 04/09/19 Additional Source Comments The information contained in this document represents components of the legal health record. It is not the complete legal health record.[facility]
--- OUTSIDE RECORDS SUMMARY | 2025-08-28 08:37 | XMS_ITS | Encounter Summary ---
Author Organization [facility] Address [address] [place] [address] Phone Care Team Providers Care Leave Manager Name Role Phone Unknown, Unknown Primary Care Provider Qamar byrd Pcp, Unknown Unavailable Unavailable Conor Garcia MD Primary Care Provider [phone] Encounter Details Date Type Department Care Team (Latest Contact Info) Description 04/17/2019 Ancillary Orders [facility] [address] [place] [address] Anson Falcon, DO [address] [place] [address] Chest pain, unspecified type; Palpitations Social History [...] Palpitations documented in this encounter Care Teams Leave Manager Relationship Specialty Start Date End Date Unknown, Unknown, PCP - General 04/09/19 12/15/24 Conor Garcia MD [address] [place] [address] PCP - General Internal Medicine 12/16/24 Pcp, Unknown 04/09/19 documented as of this encounter Additional Source Comments The information contained in this document represents components of the legal health record. It is not the complete legal health record.[facility]
--- OUTSIDE RECORDS SUMMARY | 2025-08-28 08:37 | XMS_ITS | Encounter Summary ---
Author Organization [facility] Address [address] [facility] [address] [place] [address] Phone Care Team Providers Care Basket Braider Name Role Phone Unknown, Unknown Primary Care Provider Qamar byrd Pcp, Unknown Unavailable Unavailable Conor Garcia MD Primary Care Provider [phone] Encounter Details Date Type Department Care Team (Latest Contact Info) Description 04/10/2019 Ancillary Orders [facility] [address] [place] [address] [place] [address] Anson Falcon, DO [address] [place] [address] Palpitations; Other chest pain Social History Tobacco [...] pain documented in this encounter Care Teams Basket Braider Relationship Specialty Start Date End Date Unknown, Unknown, MD PCP - General 04/09/19 12/15/24 Po, Conor Carcamo MD [address] [place] [address] Drive [address] [place] [address] PCP - General Internal Medicine 12/16/24 Pcp, Unknown 04/09/19 documented as of this encounter Additional Source Comments The information contained in this document represents components of the legal health record. It is not the complete legal health record.[facility]
--- OUTSIDE RECORDS SUMMARY | 2025-08-28 08:37 | XMS_ITS | Clinical Summary ---
Author Organization [facility] Address [address] [place] [address] Care Team Providers Care Liquid Sugar Fortifier Name Role Phone Zaria Mialn MD Primary Care Provider [phone] Social History Tobacco Use Types Packs/Day Years [...] patient's age to complete this topic Insurance [facility] Medicaid Care Teams Liquid Sugar Fortifier Relationship Specialty Start Date End Date Zaria Milan MD [address] [place], [place] PCP - General Internal Medicine 02/16/25
[2025-08-28 08:38] LABS: MANUAL DIFF FLAG NO
[2025-08-28 09:11] LABS: Hematocrit 36.1 % (37.0-47.0); Hemoglobin 11.6 g/dl (12.0-16.0); Imm Gran Abs Auto 0.02 X10*3/uL (0.00-0.03); Imm Gran Pct Auto 0.3 % (0.0-0.4); Lymphocytes Absolute Auto 1.3 X10*3/uL (1.2-4.9); Mean Corpuscular HGB Conc 32.1 g/dl (31.0-35.0); Mean Corpuscular Hemoglobin 26.7 pg (27.0-33.0); Mean Corpuscular Volume 83.0 fL (80.0-98.0); NRBC Abs Auto 0.000 X10*3/uL (0.0-0.012); NRBC Pct Auto 0.0 /100WBC (0.0-0.2); Platelet Count 427 X10*3/uL (160-400); Red Blood Count 4.35 X10*6/uL (4.20-5.50); White Blood Count 8.0 X10*3/uL (4.8-10.8)
[2025-08-28 09:39] LABS: Alanine Aminotransferase 15 U/L (0-31); Albumin Level 4.2 g/dL (3.5-5.0); Alkaline Phosphatase 71 U/L (39-117); Anion Gap 9 (12-20); Aspartate Amino Transferase 23 U/L (5-31); Blood Urea Nitrogen 16 mg/dL (9-16); Calcium 9.8 mg/dL (8.4-10.2); Carbon Dioxide 31 mmol/L (22-29); Chloride 106 mmol/L (96-108); Cholesterol 113 mg/dL (<200); Estimated Glomerular Filt Rate > 60; HDL Cholesterol 45 mg/dL (>40); Potassium 4.6 mmol/L (3.3-5.1); Sodium 141 mmol/L (135-145); Total Protein 7.9 g/dL (6.5-8.0); Triglycerides 85 mg/dL (<150)
[2025-08-28 09:50] LABS: Free T4 (Free Thyroxine) 1.21 ng/dL (0.71-1.85)
[2025-08-28 09:58] LABS: Thyroid Stimulating Hormone 4.69 uIU/mL (0.32-4.0)
[2025-08-28 10:11] LABS: Folate 14.5 ng/mL (> or = 4.0); Vitamin B12 363 pg/mL (200-900)
== END 2025-08-28 08:18 | disposition home or self-care (01) ==
LOC: HO.LAB 08:17
PROVIDERS: PCP Internal Medicine; Visit Provider Student in an Organized Health Care Education/Training Program
DX: I25.10 Atherosclerotic heart disease of native coronary artery without angina pectoris (principal); M33.13 Other dermatomyositis without myopathy; E78.00 Pure hypercholesterolemia, unspecified
CPT/HCPCS: 36415; 80053; 80061; 82085; 82306; 82550; 82607; 82746; 83036; 84439; 84443; 85025; 85652; 86140

== ENCOUNTER 2025-09-01 14:23 | Outpatient (AMB) | payer OTHER, SELFPAY ==
--- NOTE | 2025-09-01 14:44 | MHC.OFFVIS ---
Vital Signs 09/01/25 14:57 Height 5 ft 4 in Weight 147 lb 7.828 oz BMI 25.3 BP 142/50 H Blood Pressure Location Lt brachial Position Sitting Pulse 72 Pulse Source Pulse Oximeter Pulse Oximetry (%) 98 Oxygen Delivery Method Room Air Intake Visit Reasons: follow up Intake Note: Patient presents for Dermatomyositis follow up. Air Conditioning Sheet Metal Installer Required: Yes Air Conditioning Sheet Metal Installer Language: Supervisor [employer] Services: Air Conditioning Sheet Metal Installer Present Information Interpreted: non-clinical & clinical Allergies penicillin V Allergy (Unknown, Verified 09/01/25 14:56) hives Penicillins (PENICILLINS) Allergy (Unknown, Verified 09/01/25 14:56) RASH,DIZZINESS Medication List - Last Reconciled 09/01/25 by Dinora Sheth MD aspirin (Adult Low Dose Aspirin) 81 mg PO DAILY blood glucose control high,low (FreeStyle Control solution) As directed [blood pessure cuff As directed] blood sugar diagnostic (FreeStyle Lite Strips) 3 times a day blood-glucose meter (FreeStyle Lite Meter kit) As directed TID cane As directed cholecalciferol (vitamin D3) 50 mcg PO DAILY dapagliflozin propanediol (Farxiga) 10 mg PO DAILY evolocumab (Repatha Syringe) 140 mg subcut Q2W ferrous sulfate 325 mg PO BID fluoxetine 10 mg PO DAILY insulin glargine (Lantus Solostar U-100 Insulin) 9 units (0.09 mL) subcut DAILY 30 days insulin lispro (Humalog KwikPen (U-100) Insulin) inject according to sliding scale subcutaneously use as directed; < 60 drink juice, 61- 150 no insulin, 151- 230 2 u , 231- 280 4 u, 281-330 6 u , 331-380 8 u and > 380 use 10 u use before lunch isosorbide mononitrate ER 30 mg PO DAILY lancets (FreeStyle Lancets) As directed three times a day lancets (TRUEplus Lancets) As directed check BS TID levothyroxine 150 mcg PO DAILY@0600 losartan 25 mg PO DAILY melatonin 10 mg PO BEDTIME PRN metformin 1,000 mg PO BID metoprolol succinate ER 50 mg PO DAILY pen needle, diabetic (BD Corin 2nd Gen Pen Needle) once a day pen needle, diabetic (BD Ultra-Fine Corin Pen Needle) As directed once daily pen needle, diabetic As directed ticagrelor (Brilinta) 90 mg PO BID HPI Comments Details: Patient is a 64-year-old female with hypothyroidism, hypertension complicated by CAD status post stenting (10/2024 ) and 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 During the hospitalization she was noted to have elevated LFTs and was asked to follow up about this as an outpatient. She followed up with her primary care 12/02/2024. ?Labs were sent and it was noted that she had elevated CK greater than 8000 which on repeat increase to 10,000. Transaminases were elevated as well.? She was [place] [facility] [place] with rhabdomyolysis and started on IV fluids.? Despite IV fluids her CK plateaued at around 5000.? She was previously on a statin but this was stopped prior to her 10/2024 hospitalization but this was stopped. Has been having muscle pain/bone pain for about 1 year. Feels that she is very weak and not able to walk or raise her arm above her head. No rashes Fingers do change color in the cold Current Rheumatology Medication(s): Prednisone 7mg PO IVIG 2g/kg every 4 weeks [facility] Medical History Dermatomyositis Elevated CK CAD (coronary artery disease) STEMI (ST elevation myocardial infarction) GERD (gastroesophageal reflux disease) Physical exam, pre-employment Sebaceous cyst RUQ pain Cervical polyp Muscle strain of right scapular region H. 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 Father Diabetes Heart disease Mother Diabetes Hypertension Heart disease Brother Lung cancer Sister Heart disease Social History Household Members: Family Housing: House Are you a primary nanny caregiver to a significant other at home: No Do you presently have visiting nurse or other home services: Yes Alcohol intake: never Patient Tobacco Use Status: Never used Tobacco e-Cigarette/Vaping Use: Never Used Second Hand Smoke Exposure: No service: No Current occupational status: employed and disabled Current occupation: [employer] Current occupational exposures/hazards: No Cognitive needs: No Hearing needs: No Vision needs: No Female Reproductive History Menstrual Age of Menarche: 12 Review of Systems Const Details: Review of Systems Constitutional: Denies fever, chills, weight loss ENT: Denies vision changes, eye pain or eye redness, dental caries, dry mouth GI: Denies nausea, vomiting, diarrhea, abdominal pain, change in BM Pulm: Denies SOB, TORRES, hemoptysis, wheezing Cards: Denies chest pain, palpitations Skin: Denies Raynaud's, rash, nail changes, photosensitivity, TANNER ROTARY DRUM CONTINUOUS PROCESS: Denies headaches, weakness, paresthesias, recurrent falls MSK: as per HPI All other systems reviewed and are unremarkable except noted above Physical Exam Exam Exam: Vital signs reviewed Physical Examination CONSTITUITIONAL Patient alert and cooperative. Well appearing and in no apparent painful distress MSK Hands Right Hand: Able to make a fist. No swelling or tenderness to palpation of the MCPs, PIPs or DIPs. Left Hand: Able to make a fist. No swelling or tenderness to palpation of the MCPs, PIPs or DIPs. Herbedens nodes noted bilaterally Wrists Right Wrist: Full ROM to flexion and extension. No swelling or TTP Left Wrist: Full ROM to flexion and extension. No swelling or TTP Elbows Right Elbow: Full ROM. No swelling or TTP. No TTP of the medial epicondyle. No TTP of the lateral epicondyle Left Elbow: Full ROM. No swelling or TTP. No TTP of the medial epicondyle. No TTP of the lateral epicondyle Shoulders Right shoulder: Full ROM. No swelling noted. No TTP of the AC joint. No TTP of the subacromial bursa. No TTP of the posterior shoulder Left shoulder: Full ROM. No swelling noted. No TTP of the AC joint. No TTP of the subacromial bursa. No TTP of the posterior shoulder Knees Right knee: Full ROM. No swelling noted. No TTP of the knee joint line. No TTP of pes anserine bursa Left knee: Full ROM. No swelling noted. No TTP of the knee joint line. No TTP of pes anserine bursa. Ankles Right ankle: Good ankle dorsiflexion and plantar flexion. No swelling. No TTP of the ankle joint Left ankle: Good ankle dorsiflexion and plantar flexion. No swelling. No TTP of the ankle joint Feet Right foot: Negative squeeze test Left foot: Negative squeeze test Tender points? No tenderness to palpation of the bilateral trapezius, supraspinatus, anterior costochondral junctions, bilateral suboccipital muscle insertions SKIN No rashes Right Left Neck 5 Flight Crew Scheduler strength 5 5 Wrist flexion 5 5 Wrist extension 5 5 Elbow extension 5 5 Elbow flexion 5 5 Shoulder abduction 5 5 Shoulder adduction 5 5 Hip flexion 5 5 Knee extension 5 5 Knee flexion 5 5 Ankle dorsiflexion 5 5 Ankle plantar flexion 5 5 Vital Signs: Last Vital Signs Pulse 72 09/01/25 14:57 BP 142/50 H 09/01/25 14:57 Pulse Ox 98 09/01/25 14:57 Oxygen Delivery Method Room Air 09/01/25 14:57 BMI result Body Mass Index 25.3 Results Reviewed Results Reviewed: Laboratory Tests 05/27/25 08/28/25 08:22 08:37 WBC 8.0 RBC 4.35 Hgb 11.6 L Hct 36.1 L Plt Count 427 H ESR 23 H Sodium 141 Potassium 4.6 Chloride 106 Carbon Dioxide 31 H BUN 16 Creatinine 0.62 AST 23 ALT 15 Total Creatine Kinase 438 H 139 C-Reactive Protein 0.17 25-OH Vitamin D Total 56.0 Immunology labs 10/28/24 12/02/24 12/11/24 11:02 11:13 12:45 KENNY Screen POSITIVE A KENNY Titer 1:40 H KENNY Pattern Nuclear, Speckled A Proteinase 3 (PR3) Ab <1.0 Myeloperoxidase Ab <1.0 KELSEY-1 Antibody <11 EJ Antibody <11 OJ Antibody <11 Mi-2-Alpha Ab <11 Mi-2-Beta Ab 26 H NXP-2 Ab <11 PL-7 Antibody <11 PL-12 Antibody <11 SRP Ab <11 MDA5 Ab <11 Myos P155/140 TIF1-g Ab <11 HMGCR IgG Antibody 224 H NT5C1A IgG Antibody 6 Anti-Smooth Muscle Ab <20 Tiss Transglutamin IgG <1.0 Tiss Transglutamin IgA <1.0 Rae/Kid Microsom Ab Int <=20.0 Assessment & Plan Assessment & Plan (1) Dermatomyositis: Code(s): M33.13 - Other dermatomyositis without myopathy Category: Medical Plan: #Dermatomyositis/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 Based on the antibody profile she is mi 2 positive and HMGCR antibody positive. Currently on IVIG monotherapy with improvement. Will continue to taper prednisone Plan - IVIG 2g/kg monthly - Taper: Prednisone 6mg x 4 weeks then 5mg x 4 weeks then 4mg x 4 weeks then 3mg x 4 weeks then 2mg x 4 weeks then 1mg x 4 weeks then stop - RTC 4 months - Labs before visit: CBC, CMP, ESR, CRP, CK, aldolase (2) Long-term current use of intravenous immunoglobulin (IVIG): Code(s): Z79.899 - Other intermediate (current) drug therapy Plan: #Long-term use of IVIG Discussed with this patient the risks and benefits of IVIG use to the management of the rheumatic condition Benefits include improved disease control and maintenance of remission Risks include anaphylaxis, blood clots, transfusion related acute lung injury, hemolytic reaction, fluid overload, heart problems (3) detention (current) use of systemic steroids: Code(s): Z79.52 - exterminator helper termite (current) use of systemic steroids Plan: #Long-term Use of Steroids Discussed with patient the risks and benefits of steroid for managing the rheumatic condition Benefits include: - Reduced pain, improved mobility, increased participation in activities, and decreased progression of disease Risks include: - GI upset, potential ultrasound worsening or formation (especially in patients > 65 years old), elevated blood pressure/worsening hypertension, elevated blood sugar/worsening diabetes control, worsening of bone density, elevated lipids/worsening triglycerides, cataract formation, weight gain Recommended using proton pump inhibitors (PPIs) for the duration of steroid use to reduce the risk of gastric ulcers and vitamin-D daily to reduce the risk of osteoporosis Labs checked: A1c, T spot, hepatitis-B and C serologies Pneumocystis jiroveci prophylaxis: Patient with risk factors including steroids greater than 50 mg for more than 30 days, age greater than 60 years, and lung involvement from underlying rheumatic disease requires prophylaxis and will be given so Plan I spent 34 minutes reviewing the record and labs, taking a history, examining the patient, discussing the treatment plan, ordering diagnostic work up, and documenting in the medical record Orders: Orders C Reactive Protein 4 Months . - Other dermatomyositis without myopathy, Z79.899 - Other intermediate (current) drug therapy Erythrocyte Sedimentation Rate 4 Months . - Other dermatomyositis without myopathy, Z79.899 - Other long winder tender (current) drug therapy Comprehensive Met. Panel 4 Months . - Other dermatomyositis without myopathy, Z79.899 - Other long winder tender (current) drug therapy Complete Blood Count Auto Diff 4 Months . - Other dermatomyositis without myopathy, Z79.899 - Other intermediate (current) drug therapy CK, Total+Isoenzymes, Serum 4 Months . - Other dermatomyositis without myopathy Aldolase 4 Months . - Other dermatomyositis without myopathy Medications: New prednisone Prednisone 6mg x 4 weeks then 5mg x 4 weeks then 4mg x 4 weeks then 3mg x 4 weeks then 2mg x 4 weeks then 1mg x 4 weeks then stop 1 mg PO DAILY 588 tabs 0RF . - Other dermatomyositis without myopathy Discontinued prednisone Discontinued Reason: Doctor's Order 1 mg orally; take 4 tablets daily for 4 weeks then 3 tablets daily for 4 weeks then 2 tablets daily for 4 weeks 150 tabs 1RF . - Other dermatomyositis without myopathy Coding Level of Care Code Est Pt Level 4 (63086) Complex EM visit Add On G2211 Diagnoses Dermatomyositis .13 Long-term current use of intravenous immunoglobulin (IVIG) Z79.899 detention (current) use of systemic steroids Z79.52
[2025-09-01 14:57] VITALS: BP 142/50; PULSE 72; O2SAT 98; BMI 25.3
--- OUTSIDE RECORDS SUMMARY | 2025-09-01 17:45 | XMS_ITS | Encounter Summary ---
Author Organization [employer] Address [address] [place] [address] Care Team Providers Care Credit Risk Management Director Name Role Phone Unavailable Primary Care Provider Unavailabl e Reason for Visit * Reason Comments Med Refill Encounter Details Date Type Department Care Team ([facility] st Contact Info) Description 06/17/2024 Refill [facility] [address] [place] [address] Kimberley Cunningham FNP [address] [place] [address] Other hyperlipidemia; Type 2 diabetes mellitus with [...] hyperlipidemia Type 2 diabetes mellitus with hyperglycemia (HCC) documented in this encounter Additional Health Concerns Assessment Noted Time PHQ-9 Depression Total Score: 2 01/09/20 23 9:19 AM EST documented as of this encounter
--- OUTSIDE RECORDS SUMMARY | 2025-09-01 17:45 | XMS_ITS | Encounter Summary ---
Author Organization [employer] Address [address] [place] [address] Care Team Providers Care Processing Technician Name Role Phone Unavailable Primary Care Provider Unavailabl e Reason for Visit * Reason Comments Med Refill Encounter Details Date Type Department Care Team ([facility] st Contact Info) Description 05/20/2024 Refill [facility] MEDICINE [address] [place] [address] Kimberley Cunningham FNP [address] [place] [address] Primary hypertension Social History Tobacco Use Types [...] t he electric, gas, oil or water [employer] threatened to shut off services in your [...]
--- OUTSIDE RECORDS SUMMARY | 2025-09-01 17:45 | XMS_ITS | Encounter Summary ---
Author Organization [employer] Address [address] [facility] 7[address] [place] [address] Care Team Providers Care Trouble Clerk Name Role Phone Unavailable Primary Care Provider Unavailabl e Reason for Visit * Reason Comments Med Refill Encounter Details Date Type Department Care Team ([facility] st Contact Info) Description 09/10/2024 Refill [facility] [address] [place] [address] Kimberley Cunningham, EILEEN [address] [place] [address] Depressive disorder Social History Tobacco Use Types [...] t he electric, gas, oil or water [employer] threatened to shut off services in your [...]
--- OUTSIDE RECORDS SUMMARY | 2025-09-01 17:45 | XMS_ITS | Encounter Summary ---
Author Organization [employer] Address [address] [place] [address] Care Team Providers Care Inspector Rough Castings Name Role Phone Unavailable Primary Care Provider Unavailabl e Reason for Visit * Reason Comments Med Refill Encounter Details Date Type Department Care Team ([facility] st Contact Info) Description 08/12/2024 Refill [facility] MED[facility]INE [address] [place] [address] Kimberley Cunningham FNP [address] [place] [address] Vitamin D insufficiency Social History Tobacco Use [...] the past 12 months, has t he [employer], gas, oil or water company threatened to [...]
--- OUTSIDE RECORDS SUMMARY | 2025-09-01 17:45 | XMS_ITS | Encounter Summary ---
Author Organization [employer] Address [address] [facility] [address]t [place] [address] Care Team Providers Care Tool Repairer Bench Name Role Phone Unavailable Primary Care Provider Unavailabl e Reason for Visit * Reason Comments Med Refill Encounter Details Date Type Department Care Team ([facility] st Contact Info) Description 08/15/2024 Refill [facility] PEDS [address] [place] [address] Kimberley Cunningham, WORKERS' COMPENSATION COMMISSIONER [address] [place] [address] Hypothyroidism, unspecified type Social History Tobacco Use [...]
--- OUTSIDE RECORDS SUMMARY | 2025-09-01 17:45 | XMS_ITS | Clinical Summary ---
Author Organization [facility] Facility Address [address] [place] [address] Care Team Providers Care Customer Contact Representative Name Role Phone Zaria Milan MD Primary [...] patient's age to complete this topic Insurance [facility] [place] [address] Care Teams Customer Contact Representative Relationship Specialty Start Date End Date Zaria Milan MD [address] [place], [place] PCP - General Internal Medicine 02/16/25
--- OUTSIDE RECORDS SUMMARY | 2025-09-01 17:45 | XMS_ITS | Encounter Summary ---
Author Organization [employer] Address [address] 7t [place] [address] Care Team Providers Care Cocoa Bean Roaster Name Role Phone Unavailable Primary Care Provider Unavailabl e Reason for Visit * Reason Comments Med Refill Encounter Details Date Type Department Care Team (Late st Contact Info) Description 01/16/2025 Refill [facility] MED[facility]INE [address] [place] [address] Kimberley Cunningham FNP [address] [place] [address] Type 2 diabetes mellitus with hyperglycemia (CMS/HCC) [...] Diagnosis Type 2 diabetes mellitus with hyperglycemia (HCC) documented in this encounter Additional Health Concerns Assessment Noted Time PHQ-9 Depression Total Score: 2 01/09/20 23 9:19 AM EST documented as of this encounter
--- OUTSIDE RECORDS SUMMARY | 2025-09-01 17:45 | XMS_ITS | Clinical Summary ---
Author Organization [employer] Address [address] [facility] 7t [place] [address] Care Team Providers Care Arts And Crafts Teacher Name Role Phone Unavailable Primary Care [...] e 2 diabetes mellitus treated with insulin (HCC) INJECT 8 UNITS SUBCUTANEOUSLY ONCE DAILY IN THE EVENING 15 mL 3 11/01/20 23 Active linaGLIPtin (Tradjenta) 5 MG tabletIndications: Type 2 diabetes mellitus without complication, with long-term current use of insulin (HCC) TAKE 1 TABLET BY MOUTH EVERYDAY AT NOON 90 tablet 3 11/30/19 24 Active repaglinide (Prandin) 0.5 MG tabletIndications: Type 2 diabetes mellitus with hyperglycemia (HCC) TAKE 1 TABLET BY MOUTH EVERY MORNING 90 tablet 1 12/27/19 24 Active atorvastatin (Lipitor) 20 MG tabletIndications: Other hyperlipidemia TAKE 1 TABLET BY MOUTH EVERYDAY AT NOON 90 tablet 1 12/27/19 24 Active dapagliflozin (Farxiga) 10 MGIndications:Type 2 diabetes mellitus with hyperglycemia (HCC) TAKE 1 TABLET BY MOUTH EVERYDAY AT [...] complication, with long-term current use of insulin (HCC) TAKE 1 TABLET BY MOUTH TWICE DAILY AT NOON AND IN THE EVENING 180 tablet 1 03/20/20 24 Active lisinopril 20 MG tabletIndications: Primary hypertension TAKE 1 TABLET BY MOUTH AT BEDTIME 90 tablet 2 05/22/20 24 Active FREESTYLE LITE test stripIndications:T ype 2 diabetes mellitus with hyperglycemia (HCC) TEST BLOOD SUGAR 3 TIMES A DAY [...] -Pt in the process of re-establishing with [facility] End[facility] -Per last available consult note: -CONT [...] Pap Smear 03/14/2024 03/14/2019 Diabetes: Hemoglobin A1C 05/01/202401/29/2 024, 12/25/2022, 07/13/2021, Additional history exists Mammogram 10/05/2024 10/05/2022, 04/0 03/2021, 09/26/2019, Additional history exists Eye Exam 01/18/2025 01/18/2024, 02/2 01/2024, 01/18/2024, Additional history exists Tobacco Screening [...] complication, with long-term current use of insulin ([facility]) MAMMOGRAM GENERIC Routine 10/05/2022 10: 20 AM EST LIPID PANEL, STANDARD Routine 10/04/2022 8:50 AM EST ZZZ HISTORICAL MICROALBUMIN, RANDOM Routine 07/13/2021 10:40 AM EDT HM PAP/HPV Routine 03/14/2019 HM COLONOSCOPY Routine 10/22/2017 from Last 3 Months [...] Legacy Procedure: Mammography Report 1 Kimberley Cunningham WIDTH STRIPPER IMG BI PROCEDURES Final Result * LIPID [...] LDL-C. Jesús SS et al. KORTNEY. 2013;310(19): 2654-8085 (http://education.Aidin.com/faq/UKI202) Non-HDL Cholesterol 87 <130 mg/dL (calc) CONVERTED LEGACY LABS Comment: For patients with diabetes plus 1 major ASCVD risk factor, treating to a non-HDL-C goal of <100 mg/dL (LDL-C of <70 mg/dL) is considered a therapeutic option. Triglycerides 91 <150 mg/dL CONVE RTED LEGACY LABS 10/04/2022 8:50 AM EST Kimberley Cunningham WIDTH STRIPPER LAB BLOOD ORDERABLES Final Res ult CONVERTED LEGACY LABS * MICROALBUMIN, RANDOM (07/13/2021 10:40 AM EDT) Creatinine Urine 30.03 mg/dL [facility] Microalbum/Creati nine Ratio Ur TNP ug/mg cr [facility] Comment: Unable to calculate albumin/creatinine ratio due to low microalbumin or creatinine result. Microalbumin Urine <5.0 mg/L [facility] 07/13/2021 10:4 0 AM EDT Historical Provider HISTORICAL/NON ORDERABLE LABS Final Result Performing Organization Address City/[facility]/ZIP Co de Phone Number [facility] [address] * Pap Smear (03/14/2019) Pap Negative [...] Most Recently Relevant to Health Maintenance Insurance [facility] ([place] [place] ST[place]
--- OUTSIDE RECORDS SUMMARY | 2025-09-01 17:45 | XMS_ITS | Encounter Summary ---
Author Organization [employer] Address [address] [facility] 7t [place] [address] Care Team Providers Care Feed House Supervisor Name Role Phone Unavailable Primary Care Provider Unavailabl e Reason for Visit * Reason Comments Med Refill Encounter Details Date Type Department Care Team ([facility] st Contact Info) Description 10/13/2024 Refill [facility] [address] [place], [place] [phone] Kimberley Cunningham, EILEEN [address] [place] [address] Type 2 diabetes mellitus without complication, with long-term current use of insulin ([facility]) Social History Tobacco Use Types Packs/Day Years [...] with long-term current use of insulin (HCC) documented in this encounter Additional Health Concerns Assessment Noted Time PHQ-9 Depression Total Score: 2 01/09/20 23 9:19 AM EST documented as of this encounter
--- OUTSIDE RECORDS SUMMARY | 2025-09-01 17:45 | XMS_ITS | Encounter Summary ---
Author Organization [employer] Address [address] [facility] [address]t [place] [address] Care Team Providers Care Comb Tender Name Role Phone Unavailable Primary Care Provider Unavailabl e Reason for Visit * Reason Comments Med Refill Encounter Details Date Type Department Care Team ([facility] st Contact Info) Description 05/21/2024 Refill [facility] MEDICINE [address] [place] [address] Kimberley Cunningham FNP [address] [place] [address] Primary hypertension Social History Tobacco Use Types [...] t he electric, gas, oil or water [employer] threatened to shut off services in your [...]
--- OUTSIDE RECORDS SUMMARY | 2025-09-01 17:46 | XMS_ITS | Encounter Summary ---
Author Organization [employer] Address [address] [facility] 7t [place] [address] Care Team Providers Care Optometrist/Practice Owner Name Role Phone Kimberley Cunningham Primary Care Provider [phone] Reason for Visit * Reason Comments Med Refill Encounter Details Date Type Department Care Team ([facility] st Contact Info) Description 07/26/2023 Refill [facility] MED[facility] [address] [place] [address] Kimberley Cunningham FNP [address] [place] [address] Depressive disorder Social History Tobacco Use Types [...] documented as of this encounter Care Teams Optometrist/Practice Owner Relationship Specialty Start Date End Date Kimberley Cunningham FNP [address] [place] [address] PCP - General Family Medicine 07/23/22 03/20/24 documented as of this encounter
--- OUTSIDE RECORDS SUMMARY | 2025-09-01 17:46 | XMS_ITS | Encounter Summary ---
Author Organization [employer] [facility] Address [address] [facility] 7t [place] [address] Care Team Providers Care Electric Meter Installer Name Role Phone Kimberley Cunningham Primary Care Provider [phone] Encounter Details Date Type Department Care Team (Latest Contact Info) Description 01/07/2020 Abstract [facility] CONVERSIONS Dental, Provider, DDS Social History [...] on filedocumented in this encounter Care Teams Electric Meter Installer Relationship Specialty Start Date End Date Kimberley Cunningham FNP [address] [place] [address] PCP - General Family Medicine 07/23/22 03/20/24 documented as of this encounter
--- OUTSIDE RECORDS SUMMARY | 2025-09-01 17:46 | XMS_ITS | Encounter Summary ---
Author Organization [facility] Address [address] [place] [address] Phone Care Team Providers Care Group Teacher Name Role Phone Unknown, Unknown Primary Care Provider Qamar byrd Pcp, Unknown Unavailable Unavailable Conor Garcia MD Primary Care Provider [phone] Encounter Details Date Type Department Care Team (Latest Contact Info) Description 04/10/2019 Ancillary Orders [facility] [address] [place] [address] [place] [address] Anson Falcon, DO [address] [place] [address] Palpitations; Other chest pain Social History Tobacco [...] pain documented in this encounter Care Teams Group Teacher Relationship Specialty Start Date End Date Unknown, Unknown, MD PCP - General 04/09/19 12/15/24 Po, Conor Carcamo MD [address] [place] [address] Drive [address] [place] [address] PCP - General Internal Medicine 12/16/24 Pcp, Unknown 04/09/19 documented as of this encounter Additional Source Comments The information contained in this document represents components of the legal health record. It is not the complete legal health record.[facility]
--- OUTSIDE RECORDS SUMMARY | 2025-09-01 17:46 | XMS_ITS | Encounter Summary ---
Author Organization [employer] [facility] Address [address] [facility] 7t [place] [address] Care Team Providers Care Assembling Machine Operator Name Role Phone Kimberley Cunningham Primary Care Provider [phone] Encounter Details Date Type Department Care Team (Latest Contact Info) Description 01/20/2021 Abstract [facility] CONVERSIONS Dental, Provider, DDS Social History [...] on filedocumented in this encounter Care Teams Assembling Machine Operator Relationship Specialty Start Date End Date Kimberley Cunningham FNP [address] [place] [address] PCP - General Family Medicine 07/23/22 03/20/24 documented as of this encounter
--- OUTSIDE RECORDS SUMMARY | 2025-09-01 17:46 | XMS_ITS | Encounter Summary ---
Author Organization [facility] Address [address] [facility] [address] [place] [address] Phone Care Team Providers Care In Processing Instructor Name Role Phone Unknown, Unknown Primary Care Provider Qamar byrd Pcp, Unknown Unavailable Unavailable Conor Garcia MD Primary Care Provider [phone] Encounter Details Date Type Department Care Team (Latest Contact Info) Description 04/17/2019 Ancillary Orders [facility] [address] [place] [address] Anson Falcon, DO [address] [place] [address] Chest pain, unspecified type; Palpitations Social History [...] Palpitations documented in this encounter Care Teams In Processing Instructor Relationship Specialty Start Date End Date Unknown, Unknown, PCP - General 04/09/19 12/15/24 Conor Garcia MD [address] [place] [address] PCP - General Internal Medicine 12/16/24 Pcp, Unknown 04/09/19 documented as of this encounter Additional Source Comments The information contained in this document represents components of the legal health record. It is not the complete legal health record.[facility]
--- OUTSIDE RECORDS SUMMARY | 2025-09-01 17:46 | XMS_ITS | Encounter Summary ---
Author Organization [employer] Address [address] 7t [place] [address] Care Team Providers Care Otr Company Truck Driver Name Role Phone Unavailable Primary Care Provider Unavailabl e Reason for Visit * Reason Comments Med Refill Encounter Details Date Type Department Care Team ([facility] st Contact Info) Description 11/13/2024 Refill [facility] MEDICINE [address] [place] [address] Kimberley Cunningham FNP [address] [place] [address] Type 2 diabetes mellitus without complication, with long-term current use of insulin ([facility]) Social History Tobacco Use Types Packs/Day Years [...]
--- OUTSIDE RECORDS SUMMARY | 2025-09-01 17:46 | XMS_ITS | Encounter Summary ---
Author Organization [employer] Address [address] 7t [place] [address] Care Team Providers Care Admiralty Lawyer Name Role Phone Unavailable Primary Care Provider Unavailabl e Reason for Visit * Reason Comments Med Refill Encounter Details Date Type Department Care Team (Late st Contact Info) Description 01/12/2025 Refill [facility] [address] [place] [address] Kimberley Cunningham FNP [address] [place] [address] Type 2 diabetes mellitus with hyperglycemia (CMS/HCC) [...]
--- OUTSIDE RECORDS SUMMARY | 2025-09-01 17:46 | XMS_ITS | Encounter Summary ---
Author Organization [employer] Address [address] [facility] 7t [place] [address] Care Team Providers Care Medical Office Assistant Name Role Phone Kimberley Cunningham CHERRY GROWER Primary Care Provider [phone] Encounter Details Date Type Department Care Team ([facility] st Contact Info) Description 10/12/2023 Abstract [facility] MED[facility]INE [address] [place], [place] [phone] Sandra Villareal Social History Tobacco Use Types [...] documented as of this encounter Care Teams Medical Office Assistant Relationship Specialty Start Date End Date Kimberley Cunningham FNP [address] [place] [address] PCP - General Family Medicine 07/23/22 03/20/24 documented as of this encounter
--- OUTSIDE RECORDS SUMMARY | 2025-09-01 17:46 | XMS_ITS | Encounter Summary ---
Author Organization [employer] Address [address] [facility] 7t [place] [address] Care Team Providers Care Line Patrolman Name Role Phone Kimberley Cunningham DENTAL HYGIENE PROFESSOR Primary Care Provider [phone] Reason for Visit * Reason Comments Med Refill Encounter Details Date Type Department Care Team ([facility] st Contact Info) Description 09/08/2023 Refill [facility] MEDICINE [address] [place], [place] [phone] Jojo Washburn MD [address] [place], [place] [phone] Depressive disorder Social History Tobacco Use Types [...] documented as of this encounter Care Teams Line Patrolman Relationship Specialty Start Date End Date Kimberley Cunningham FNP [address] [place] [address] PCP - General Family Medicine 07/23/22 03/20/24 documented as of this encounter
== END 2025-09-01 15:14 | disposition home or self-care (01) ==
LOC: HO.RHES 14:24
PROVIDERS: PCP Internal Medicine; Visit Provider Student in an Organized Health Care Education/Training Program
DX: M33.13 Other dermatomyositis without myopathy (principal); Z79.899 Other long term (current) drug therapy; Z79.52 Long term (current) use of systemic steroids
CPT/HCPCS: 99214

== ENCOUNTER → 2025-09-01 14:23 | Outpatient (BNVA) | payer OTHER, SELFPAY | PROVIDERS: PCP Internal Medicine; Visit Provider Student in an Organized Health Care Education/Training Program | DX: M33.13 Other dermatomyositis without myopathy (principal); Z79.899 Other long term (current) drug therapy; Z79.52 Long term (current) use of systemic steroids | CPT/HCPCS: 99212 ==

== ENCOUNTER 2025-09-05 11:47 | Outpatient (AMB) | payer OTHER, SELFPAY ==
--- OUTSIDE RECORDS SUMMARY | 2025-09-05 11:49 | XMS_ITS | Clinical Summary ---
Author Organization [facility] Facility Address [address] [place] [address] Care Team Providers Care Suction Plate Roller Hand Name Role Phone Zaria Milan MD Primary [...] age to complete this topic Insurance [facility] Medicaid Care Teams Suction Plate Roller Hand Relationship Specialty Start Date End Date Zaria Milan MD [address] [place], [place] PCP - General Internal Medicine 02/16/25
--- OUTSIDE RECORDS SUMMARY | 2025-09-05 11:49 | XMS_ITS | Clinical Summary ---
Author Organization [employer] Address [address] [facility] 7t [place] [address] Care Team Providers Care Concrete Fence Builder Name Role Phone Unavailable Primary Care [...] in the process of re-establishing with [facility] -Per last available consult note: -CONT [...] complication, with long-term current use of insulin ([facility]) MAMMOGRAM GENERIC Routine 10/05/2022 10: 20 AM [...] Legacy Procedure: Mammography Report 1 Kimberley Cunningham SOFTWARE SALES MANAGER IMG BI PROCEDURES Final Result * [...] LDL-C. Jesús SS et al. KORTNEY. 2013;310(19): 9731-4203 (http://education.trakkies Research.com/faq/ZTY247) Non-HDL Cholesterol 87 <130 mg/dL (calc) CONVERTED LEGACY LABS Comment: For patients with diabetes plus 1 major ASCVD risk factor, treating to a non-HDL-C goal of <100 mg/dL (LDL-C of <70 mg/dL) is considered a therapeutic option. Triglycerides 91 <150 mg/dL CONVE RTED LEGACY LABS 10/04/2022 8:50 AM EST Kimberley Cunningham SOFTWARE SALES MANAGER LAB BLOOD ORDERABLES Final Res ult CONVERTED LEGACY LABS * MICROALBUMIN, RANDOM (07/13/2021 10:40 AM EDT) Creatinine Urine 30.03 mg/dL [facility] Microalbum/Creati nine Ratio Ur TNP ug/mg cr [facility] Comment: Unable to calculate albumin/creatinine ratio due to low microalbumin or creatinine result. Microalbumin Urine <5.0 mg/L [facility] 07/13/2021 10:4 0 AM EDT Historical Provider HISTORICAL/NON ORDERABLE LABS Final Result Performing Organization Address City/[facility]/ZIP Co de Phone Number [facility] [address] * Pap Smear (03/14/2019) Pap Negative [...] Most Recently Relevant to Health Maintenance Insurance [facility] ([place]) [place] ST[place]
--- OUTSIDE RECORDS SUMMARY | 2025-09-05 11:49 | XMS_ITS | Encounter Summary ---
Author Organization [employer] Address [address] 7t [place] [address] Care Team Providers Care Adult High School Instructor Name Role Phone Unavailable Primary Care Provider Unavailabl e Reason for Visit * Reason Comments Med Refill Encounter Details Date Type Department Care Team ([facility] st Contact Info) Description 05/21/2024 Refill [facility] MED[facility]INE [address] [place] [address] Kimberley Cunningham FNP [address] [place] [address] Primary hypertension Social History Tobacco Use Types [...] t he electric, gas, oil or water [employer] threatened to shut off services in your [...]
--- OUTSIDE RECORDS SUMMARY | 2025-09-05 11:49 | XMS_ITS | Encounter Summary ---
Author Organization [employer] Address [address] [facility] [facility] [address] 7t [place] [address] Care Team Providers Care Course Instructor Name Role Phone Unavailable Primary Care Provider Unavailabl e Reason for Visit * Reason Comments Med Refill Encounter Details Date Type Department Care Team (Late st Contact Info) Description 01/16/2025 Refill [facility] MEDICINE [address] [place] [address] Kimberley Cunningham FNP [address] [place] [address] Type 2 diabetes mellitus with hyperglycemia (CMS/HCC) [...]
--- OUTSIDE RECORDS SUMMARY | 2025-09-05 11:49 | XMS_ITS | Encounter Summary ---
Author Organization [employer] Address [address] [facility] [facility] [address]t [place] [address] Care Team Providers Care Construction Plumber Name Role Phone Unavailable Primary Care Provider Unavailabl e Reason for Visit * Reason Comments Med Refill Encounter Details Date Type Department Care Team ([facility] st Contact Info) Description 05/20/2024 Refill [facility] MED[facility] [address] [place] [address] Kimberley Cunningham FNP [address] [place] [address] Primary hypertension Social History Tobacco Use Types [...] t he electric, gas, oil or water [facility] threatened to shut off services in your [...]
--- OUTSIDE RECORDS SUMMARY | 2025-09-05 11:50 | XMS_ITS | Encounter Summary ---
Author Organization [facility] Address [address] [facility] 7t [place] [address] Care Team Providers Care Employee Relations Representative Name Role Phone Kimberley Cunningham Primary Care Provider [phone] Encounter Details Date Type Department Care Team (Latest Contact Info) Description 01/20/2021 Abstract [facility] CONVERSIONS Dental, Provider, DDS Social History [...] filedocumented in this encounter Care Teams Employee Relations Representative Relationship Specialty Start Date End Date Kimberley Cnuningham FNP [address] [place] [address] PCP - General Family Medicine 07/23/22 03/20/24 documented as of this encounter
--- OUTSIDE RECORDS SUMMARY | 2025-09-05 11:50 | XMS_ITS | Encounter Summary ---
Author Organization [employer] Address [address] [facility] 7t [place] [address] Care Team Providers Care Sales Office Assistant Name Role Phone Unavailable Primary Care Provider Unavailabl e Reason for Visit * Reason Comments Med Refill Encounter Details Date Type Department Care Team ([facility] st Contact Info) Description 08/15/2024 Refill [facility] [address] [place] [address] Kimberley Cunningham, PHYSICAL SECURITY MANAGER [address] [place] [address] Hypothyroidism, unspecified type Social History Tobacco Use [...]
--- OUTSIDE RECORDS SUMMARY | 2025-09-05 11:50 | XMS_ITS | Encounter Summary ---
Author Organization [employer] Address [address] [facility] [address]t [place] [address] Care Team Providers Care Tea Tree Farm Worker Name Role Phone Unavailable Primary Care Provider Unavailabl e Reason for Visit * Reason Comments Med Refill Encounter Details Date Type Department Care Team ([facility] st Contact Info) Description 06/17/2024 Refill [facility] MED[facility]INE 230 [place] [address] Kimberley Cunningham FNP [address] [place] [address] Other hyperlipidemia; Type 2 diabetes mellitus with [...]
--- OUTSIDE RECORDS SUMMARY | 2025-09-05 11:50 | XMS_ITS | Encounter Summary ---
Author Organization [facility] Address [address] [facility] [address] [place] [address] Phone Care Team Providers Care Customer Relations Advisor Name Role Phone Unknown, Unknown Primary Care Provider Qamar byrd Pcp, Unknown Unavailable Unavailable Conor Garcia MD Primary Care Provider [phone] Encounter Details Date Type Department Care Team (Latest Contact Info) Description 04/10/2019 Ancillary Orders [facility] [address] [place] [address] [place] [address] Anson Falcon, DO [address] [place] [address] Palpitations; Other chest pain Social History Tobacco [...] pain documented in this encounter Care Teams Customer Relations Advisor Relationship Specialty Start Date End Date Unknown, Unknown, MD PCP - General 04/09/19 12/15/24 Po, Conor Carcamo MD [address] [place] [address] Drive [address] [place] [address] PCP - General Internal Medicine 12/16/24 Pcp, Unknown 04/09/19 documented as of this encounter Additional Source Comments The information contained in this document represents components of the legal health record. It is not the complete legal health record.[facility]
--- OUTSIDE RECORDS SUMMARY | 2025-09-05 11:50 | XMS_ITS | Encounter Summary ---
Author Organization [employer] [facility] Address [address] [facility] 7t [place] [address] Care Team Providers Care Maintainer Plant Name Role Phone Kimberley Cunningham Primary Care Provider [phone] Encounter Details Date Type Department Care Team (Latest Contact Info) Description 01/07/2020 Abstract [facility] CONVERSIONS Dental, Provider, DDS Social History [...] on filedocumented in this encounter Care Teams Maintainer Plant Relationship Specialty Start Date End Date Kimberley Cunningham FNP [address] [place] [address] PCP - General Family Medicine 07/23/22 03/20/24 documented as of this encounter
--- OUTSIDE RECORDS SUMMARY | 2025-09-05 11:50 | XMS_ITS | Clinical Summary ---
Author Organization [facility] Address [address] [facility] [address] [place] [id number] Phone Care Team Providers Care Residential Mortgage Manager Name Role Phone Pcp, Unknown Unavailable Unavailable Conor Garcia MD Primary Care Provider [phone] Allergies Active Allergy Reactions Criticality Noted Date [...] Active ferrous sulfate 325 mg (65 mg osage iron) tablet Take 325 mg by mouth. [...] unspecified vessel or lesion type, unspecified whether [place] or transplanted heart from Last 3 Months or Most Recently Relevant to Health Maintenance Results * (ABNORMAL) Lipid panel (12/18/2024 11:58 AM EST) HDL 43 mg/dL [facility] Comment: Interpretation <40 mg/dL: Low HDL cholesterol (major risk factor for CHD) Greater than or equal to 60 mg/dL: High HDL cholesterol ( negative risk factor for CHD) HDL - cholesterol is affected by a number of factors, e.g. smoking, excerise, hormones, sex and age. CHOLESTEROL 182 0 - 240 mg/dL [facility] TRIGLYCERIDES 185(H) 30 - 160 mg/dL [facility] LDL 102 50 - 129 mg/dL [facility] Comment: LDL levels in terms of risk for coronary heart disease: <100 mg/dL: Optimal 100-129 mg/dL: Near or above optimal 130-159 mg/dL: Borderline high 160-189 mg/dL: High >190 mg/dL: Very High CARDIAC RISK RATIO 4.2 3.3 - 4.4 C [facility] Blood 12/18/2024 11:5 8 AM EST 12/18/2024 12:09 PM EST Carl Rosa MD LAB BLOOD ORDERABLES Final Re sult [facility] [address] [place] [address] from Last 3 Months or Most Recently Relevant to Health Maintenance [place] [address] [place] [id number] ACO [facility] ACO [facility] ACO [employer] [place] [address] [place] [id number] ACO Care Teams Residential Mortgage Manager Relationship Specialty Start Date End Date Conor Garcia MD [address] [place] [address] PCP - General Internal Medicine 12/16/24 Pcp, Unknown 04/09/19 Additional Source Comments The information contained in this document represents components of the legal health record. It is not the complete legal health record.[facility]
--- OUTSIDE RECORDS SUMMARY | 2025-09-05 11:50 | XMS_ITS | Encounter Summary ---
Author Organization [employer] Address [address] [facility] 7t [place] [address] Care Team Providers Care Top Inventory Control Executive Name Role Phone Kimberley Cunningham COAL MINE INSPECTOR Primary Care Provider [phone] Encounter Details Date Type Department Care Team ([facility] st Contact Info) Description 10/12/2023 Abstract [facility] MEDICINE [address] [place], [place] [phone] Sandra Villareal Social History Tobacco Use Types [...] documented as of this encounter Care Teams Top Inventory Control Executive Relationship Specialty Start Date End Date Kimberley Cunningham FNP [address] [place] [id number] PCP - General Family Medicine 07/23/22 03/20/24 documented as of this encounter
--- OUTSIDE RECORDS SUMMARY | 2025-09-05 11:50 | XMS_ITS | Encounter Summary ---
Author Organization [employer] Address [address] 7[address] [place] [address] Care Team Providers Care Inspector Tubes Name Role Phone Unavailable Primary Care Provider Unavailabl e Reason for Visit * Reason Comments Med Refill Encounter Details Date Type Department Care Team (Late st Contact Info) Description 01/12/2025 Refill [facility] MEDICINE [address] [place] [address] Kimberley Cunningham FNP [address] [place] [address] Type 2 diabetes mellitus with hyperglycemia (CMS/HCC) [...]
--- OUTSIDE RECORDS SUMMARY | 2025-09-05 11:50 | XMS_ITS | Encounter Summary ---
Author Organization [employer] Address [address] 7t [place] [address] Care Team Providers Care Finishing Frame Runner Name Role Phone Unavailable Primary Care Provider Unavailabl e Reason for Visit * Reason Comments Med Refill Encounter Details Date Type Department Care Team ([facility] st Contact Info) Description 08/12/2024 Refill [facility]INE [address] [place] [address] Kimberley Cunningham FNP [address] [place] [address] Vitamin D insufficiency Social History Tobacco Use [...] the past 12 months, has t he [employer], gas, oil or water company threatened to [...]
--- OUTSIDE RECORDS SUMMARY | 2025-09-05 11:50 | XMS_ITS | Encounter Summary ---
Author Organization [employer] Address [address] [facility] 7t [place] [address] Care Team Providers Care Centrifuge Separator Operator Name Role Phone Kimberley Cunningham RANCH HELPER Primary Care Provider [phone] Reason for Visit * Reason Comments Med Refill Encounter Details Date Type Department Care Team ([facility] st Contact Info) Description 09/08/2023 Refill [facility] MEDICINE [address] [place], [place] [phone] Jojo Washburn MD [address] [place], [place] [phone] Depressive disorder Social History Tobacco Use Types [...] documented as of this encounter Care Teams Centrifuge Separator Operator Relationship Specialty Start Date End Date Kimberley Cunningham FNP [address] [place] [address] PCP - General Family Medicine 07/23/22 03/20/24 documented as of this encounter
--- OUTSIDE RECORDS SUMMARY | 2025-09-05 11:50 | XMS_ITS | Encounter Summary ---
Author Organization [employer] Address [address] [facility] 7t [place] [address] Care Team Providers Care Makeup Artistry Instructor Name Role Phone Kimberley Cunningham Primary Care Provider [phone] Reason for Visit * Reason Comments Med Refill Encounter Details Date Type Department Care Team ([facility] st Contact Info) Description 07/26/2023 Refill [facility] MEDICINE [address] [place] [address] Kimberley Cunningham FNP [address] [place] [address] Depressive disorder Social History Tobacco Use Types [...] documented as of this encounter Care Teams Makeup Artistry Instructor Relationship Specialty Start Date End Date Kimberley Cunningham FNP [address] [place] [address] PCP - General Family Medicine 07/23/22 03/20/24 documented as of this encounter
--- OUTSIDE RECORDS SUMMARY | 2025-09-05 11:50 | XMS_ITS | Encounter Summary ---
Author Organization [employer] Address [address] [facility] 7t [place] [address] Care Team Providers Care Rigger Up Name Role Phone Unavailable Primary Care Provider Unavailabl e Reason for Visit * Reason Comments Med Refill Encounter Details Date Type Department Care Team ([facility] st Contact Info) Description 11/13/2024 Refill [facility] MEDICINE [address] [place] [address] Kimberley Cunningham FNP [address] [place] [address] Type 2 diabetes mellitus without complication, with long-term current use of insulin ([facility]) Social [...]
--- OUTSIDE RECORDS SUMMARY | 2025-09-05 11:50 | XMS_ITS | Encounter Summary ---
Author Organization [facility] Address [address] [facility] [address] [place] [address] Phone Care Team Providers Care Early Childhood Teacher Assistant Name Role Phone Unknown, Unknown Primary Care Provider Qamar byrd Pcp, Unknown Unavailable Unavailable Conor Garcia MD Primary Care Provider [phone] Encounter Details Date Type Department Care Team (Latest Contact Info) Description 04/17/2019 Ancillary Orders [facility] [address] [place] [address] Anson Falcon, DO [address] [place] [address] Chest pain, unspecified type; Palpitations Social History [...] Palpitations documented in this encounter Care Teams Early Childhood Teacher Assistant Relationship Specialty Start Date End Date Unknown, Unknown, PCP - General 04/09/19 12/15/24 Conor Garcia MD [address] [place] [address] PCP - General Internal Medicine 12/16/24 Pcp, Unknown 04/09/19 documented as of this encounter Additional Source Comments The information contained in this document represents components of the legal health record. It is not the complete legal health record.[facility]
--- OUTSIDE RECORDS SUMMARY | 2025-09-05 11:50 | XMS_ITS | Encounter Summary ---
Author Organization [employer] Address [address] [facility] 7t [place] [address] Care Team Providers Care Sausage Meat Trimmer Name Role Phone Unavailable Primary Care Provider Unavailabl e Reason for Visit * Reason Comments Med Refill Encounter Details Date Type Department Care Team ([facility] st Contact Info) Description 09/10/2024 Refill [facility] [address] [place], [place] [phone] Kimberley Cunningham, EILEEN [address] [place] [address] Depressive disorder Social History Tobacco Use Types [...] t he electric, gas, oil or water [employer] threatened to shut off services in [...]
--- OUTSIDE RECORDS SUMMARY | 2025-09-05 11:50 | XMS_ITS | Encounter Summary ---
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
--- NOTE | 2025-09-05 12:10 | AM.OFFWIN_ITS ---
Intake Vital Signs 09/05/25 12:11 Height 5 ft 4 in Weight 145 lb BMI 24.9 BP 136/84 Blood Pressure Location Rt brachial Position Sitting Respiration 16 Pulse 66 Pulse Source Pulse Oximeter Temp 98.1 F Temp Source Oral Pulse Oximetry (%) 99 Oxygen Delivery Method Room Air Intake Visit Reasons: EP, lower abd pain Intake Note: Pt is here today c/o Abdominal discomfort x 1 week Patient Tobacco Use Status: Never used Tobacco Allergies penicillin V Allergy (Unknown, Verified 09/05/25 12:13) hives Penicillins (PENICILLINS) Allergy (Unknown, Verified 09/05/25 12:13) RASH,DIZZINESS Medication List - Last Reconciled 09/05/25 by Aravind Alamo MD aspirin (Adult Low Dose Aspirin) 81 mg PO DAILY blood glucose control high,low (FreeStyle Control solution) As directed [blood pessure cuff As directed] blood sugar diagnostic (FreeStyle Lite Strips) 3 times a day blood-glucose meter (FreeStyle Lite Meter kit) As directed TID cane As directed cholecalciferol (vitamin D3) 50 mcg PO DAILY dapagliflozin propanediol (Farxiga) 10 mg PO DAILY evolocumab (Repatha Syringe) 140 mg subcut Q2W ferrous sulfate 325 mg PO BID fluoxetine 10 mg PO DAILY insulin glargine (Lantus Solostar U-100 Insulin) 9 units (0.09 mL) subcut DAILY 30 days insulin lispro (Humalog KwikPen (U-100) Insulin) inject according to sliding scale subcutaneously use as directed; < 60 drink juice, 61- 150 no insulin, 151- 230 2 u , 231- 280 4 u, 281-330 6 u , 331-380 8 u and > 380 use 10 u use before lunch isosorbide mononitrate ER 30 mg PO DAILY lancets (FreeStyle Lancets) As directed three times a day lancets (TRUEplus Lancets) As directed check BS TID levothyroxine 150 mcg PO DAILY@0600 losartan 25 mg PO DAILY melatonin 10 mg PO BEDTIME PRN metformin 1,000 mg PO BID metoprolol succinate ER 50 mg PO DAILY pen needle, diabetic (BD Corin 2nd Gen Pen Needle) once a day pen needle, diabetic (BD Ultra-Fine Corin Pen Needle) As directed once daily pen needle, diabetic As directed prednisone 1 mg PO DAILY ticagrelor (Brilinta) 90 mg PO BID HPI EP, lower abd pain HPI Details Patient with history of cholecystectomy presents with complaint of abdominal discomfort x1 week. Pain is somewhat diffuse though worse in lower quadrants. Denies any change in appetite No nausea or vomiting No diarrhea Denies any fevers or chills. She drinks only about 2 glasses of water per day [facility] Medical History Dermatomyositis Elevated CK CAD (coronary artery disease) STEMI (ST elevation myocardial infarction) GERD (gastroesophageal reflux disease) Physical exam, pre-employment Sebaceous cyst RUQ pain Cervical polyp Muscle strain of right scapular region H. 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 Current occupational exposures/hazards: No Cognitive needs: No Hearing needs: No Vision needs: No Female Reproductive History Menstrual Age of Menarche: 12 Review of Systems Const Denies chills, Denies fatigue, Denies fever(s), Denies headache(s) and Denies weakness ENT Denies dizziness and Denies headache(s) Card Denies dyspnea Resp Denies cough, Denies dyspnea, Denies wheezing and Denies other ( shortness of breath) GI Details: See HPI Musc Denies numbness and Denies tingling Neuro Denies dizziness, Denies headache(s), Denies numbness, Denies tingling, Denies paresthesias and Denies weakness Psych Denies anxiety and Denies depression Endo Denies fatigue Aller/Immun Denies wheezing Physical Exam Vital Signs: Last Vital Signs Temp 98.1 F 09/05/25 12:11 Pulse 66 09/05/25 12:11 Resp 16 09/05/25 12:11 BP 136/84 09/05/25 12:11 Pulse Ox 99 09/05/25 12:11 Oxygen Delivery Method Room Air 09/05/25 12:11 BMI result Body Mass Index 24.9 Const General: no acute distress and well developed Nutritional Appearance: well nourished Orientation/consciousness: patient oriented x3 HEENT Head: Yes normocephalic and Yes atraumatic Eyes General: appearance normal, both eyes and all related structures Pupils: Equal, round and reactive pupils present EOM: EOMs intact bilaterally Resp Effort & Inspection: normal respiratory effort Auscultation: clear to auscultation bilaterally Cardio Rate: regular rate Rhythm: regular rhythm Heart sounds: S1 normal heart sound present, S2 normal heart sound present, no gallops, no murmurs and no rubs GI Other: Bowel sounds present. Diffuse tenderness worse at bilateral lower quadrants. No rebound tenderness or involuntary guarding. Neuro General: patient oriented x3 and gait normal Cranial nerves: Yes Equal, round and reactive pupils present Psych Affect: normal affect Results AMB Urinalysis, Automated UA Leukoctes 0 Dang/uL Last Edit by Kandy Pearson CMA on 09/05/25 12:29 UA Nitrite Negative Last Edit by Kandy Pearson CMA on 09/05/25 12:29 UA Urobilinogen 0.2 mg/dL Last Edit by Kandy Pearson CMA on 09/05/25 12:29 UA Protein 0 mg/dL Last Edit by Kandy Pearson CMA on 09/05/25 12:29 UA pH 6.0 Last Edit by Kandy Pearson CMA on 09/05/25 12:29 UA Blood 0 Karlo/uL Last Edit by Kandy Pearson CMA on 09/05/25 12:29 UA Specific [place] 1.010 Last Edit by Kandy Pearson CMA on 09/05/25 12:29 UA Ketone Negative Last Edit by Kandy Pearson CMA on 09/05/25 12:29 UA Bilirubin 0 mg/dL Last Edit by Kandy Pearson CMA on 09/05/25 12:29 UA Glucose 1000 mg/dL Last Edit by Kandy Pearson CMA on 09/05/25 12:29 Results Reviewed Results Reviewed: Laboratory Last Values Urine pH (Auto) 6.0 09/05/25 12: Specific [place] (Auto) 1.010 09/05/25 12: Urine Protein (Auto) 0 mg/dL 09/05/25 12: Glucose (UA)(Auto) 1000 mg/dL 09/05/25 12:26 Urine Ketones (Auto) Negative 09/05/25 12: Urine Blood (Auto) 0 Karlo/uL 09/05/25 12: Urine Nitrite (Auto) Negative 09/05/25 12: Urine Bilirubin (Auto) 0 mg/dL 09/05/25 12: Urine Urobilinogen (Auto) 0.2 mg/dL 09/05/25 12: Leukocyte Esterase (Auto) 0 Dang/uL 09/05/25 12:26 Assessment & Plan Assessment & Plan (1) Abdominal discomfort: Code(s): R10.9 - Unspecified abdominal pain Plan: One-week of diffuse lower quadrants abdominal discomfort without fever or chills. No nausea or vomiting or change in appetite. Recent lab work last week shows normal white blood cell count. Normal liver enzymes. Exam shows no rebound tenderness or involuntary guarding. Non acute abdomen. Patient drinks only about 2 glasses of water per day Likely constipation Advised clear liquid diet for today and advance diet as tolerated tomorrow. Will give her a script for MiraLax ReChecking CBC and CMP. Call or return to office if worsening symptoms or new concerning symptoms such as fever or chill, change in appetite, nausea vomiting. Orders: Orders Comprehensive Met. Panel Today R10.9 - Unspecified abdominal pain AMB Urinalysis Automated Today Z13.9 - Encounter for screening, unspecified Complete Blood Count Auto Diff Today R10.9 - Unspecified abdominal pain, Z00.00 - Encounter for general adult medical examination without abnormal findings Medications: New polyethylene glycol 3350 (Miralax) 17 grams PO DAILY 14 ea 0RF 14 days Coding Level of Care Code Est Pt Level 3 (01700) Diagnoses Abdominal discomfort R10.9
[2025-09-05 12:11] VITALS: BP 136/84; PULSE 66; RESP 16; TEMP 36.7; O2SAT 99; BMI 24.9
== END 2025-09-05 13:37 | disposition home or self-care (01) ==
PROVIDERS: PCP Internal Medicine; Visit Provider Family Medicine
DX: Z13.9 Encounter for screening, unspecified (principal); R10.9 Unspecified abdominal pain

== ENCOUNTER → 2025-09-05 11:47 | Outpatient (BNVA) | payer OTHER, SELFPAY | PROVIDERS: PCP Internal Medicine | DX: R10.9 Unspecified abdominal pain (principal) | CPT/HCPCS: 81003; 99212 ==

== ENCOUNTER 2025-09-10 08:15 | Emergency (ER) | payer OTHER, SELFPAY ==
[2025-09-10] VITALS (7 sets, daily range): BP systolic 124–202; BP diastolic 52–86; PULSE 59–80; RESP 15–19; TEMP 36.2–36.8; O2SAT 98–100; BMI 24.4
--- NOTE | 2025-09-10 08:27 | ECG_ITS ---
Test Reason : Hypertension, carrasquillo Blood Pressure : */* mmHG Vent. Rate : 80 BPM Atrial Rate : 80 BPM P-R Int : 130 ms QRS Dur : 74 ms QT Int : 354 ms P-R-T Axes : 20 4 53 degrees QTcB Int : 408 ms Normal sinus rhythm Nonspecific T wave abnormality Abnormal ECG When compared with ECG of 08-Jul-2025 05:34, Nonspecific T wave abnormality now evident in Anterior leads Referred By: Generic ED Physician Electronically Signed By: Shin Denton
--- NOTE | 2025-09-10 08:34 | ED.HA ---
HPI - Headache General Chief Complaint: Headache Stated Complaint: headache, pain L arm Time Seen by Provider: 09/10/25 08:34 Source: patient, RN notes reviewed and old records reviewed Mode of arrival: ambulatory Limitations: no limitations History of Present Illness ED Provider: Bindu Veliz PA-C HPI Narrative: 64 yo female with history of CAD, unstable angina, tinnitus, DM, dermatomyositis, GERD, anemia, HTN, hypothyroidism, H. pylori, HLD, who presents to the ER for evaluation of right frontal head pressure that started around 2 or 3 this morning. She also reports associated bilateral ringing in her ears. This is worse than her baseline, she has had tinnitus for 1 year. She reports a buzzing sound in her ears that is worse than normal. She denies any changes in her vision. She states the headache is pressure-like and in the front of her head. It does not radiate. She denies any neck pain, chest pain, abdominal pain. She reports a chronic pain in her left under arm that she describes as a tingling sensation. She says she has had it for several weeks to months and has been evaluated in the past for it. She does not know what it is from. She did not take her blood pressure medications yet this morning. On arrival to the ER blood pressure is 200 systolic MD elicited complaint: headache Pertinent past history: hypertension Onset (ago): hour(s) Onset description: suddenly Location: frontal Severity: moderate Pain scale (0-10): 7 Quality & Timing: aching and pressure Exacerbating factors: none Relieving factors: nothing Context: occurred at rest Associated symptoms: none Treatments prior to arrival: none Related Data Home Medications ?Medication ?Instructions ?Recorded ?Confirmed blood glucose control high and low #1 ea 09/07/20 09/01/25 solution (FreeStyle Control solution) Previous Rx's ?Medication ?Instructions ?Recorded pen needle, diabetic 32 gauge x #100 ea 11/02/20 (BD Corin 2nd Gen Pen Needle) pen needle, diabetic 32 gauge x #100 ea 04/18/22 (BD Ultra-Fine Corin Pen Needle) lancets 28 gauge (FreeStyle #100 ea 11/29/23 Lancets) blood pessure cuff #1 ea 11/28/24 blood-glucose meter (FreeStyle #1 ea 11/28/24 Lite Meter kit) metoprolol succinate 50 mg 50 mg PO DAILY #90 tabs 12/02/24 tablet,extended release 24 hr aspirin 81 mg tablet,delayed 81 mg PO DAILY #90 tabs 02/17/25 release (Adult Low Dose Aspirin) melatonin 10 mg capsule 10 mg PO BEDTIME PRN sleep #30 caps 02/17/25 cane #1 ea 02/23/25 metformin 1,000 mg tablet 1,000 mg PO BID #180 tabs 04/09/25 lancets 33 gauge (TRUEplus Lancets) #100 ea 04/17/25 evolocumab 140 mg/mL subcutaneous 140 mg subcut Q2W #1 mL 06/09/25 syringe (Repatha Syringe) insulin glargine 100 unit/mL (3 9 unit (0.09 mL) subcut DAILY 30 06/09/25 mL) subcutaneous pen (Lantus days #2.7 mL Solostar U-100 Insulin) insulin lispro 100 unit/mL See Rx Instructions subcut 06/09/25 subcutaneous pen (Humalog KwikPen USEASDIRECTD #15 mL (U-100) Insulin) ferrous sulfate 325 mg (65 mg 325 mg PO BID #60 tabs 06/18/25 iron) tablet ticagrelor 90 mg tablet (Brilinta) 90 mg PO BID #60 tabs 06/26/25 pen needle, diabetic 32 gauge x #100 ea 07/10/25 blood sugar diagnostic (FreeStyle #100 ea 07/12/25 Lite Strips) cholecalciferol (vitamin D3) 50 50 mcg PO DAILY #90 caps 08/07/25 mcg (2,000 unit) capsule isosorbide mononitrate 30 mg 30 mg PO DAILY #90 tabs 08/09/25 tablet,extended release 24 hr levothyroxine 150 mcg tablet 150 mcg PO DAILY@0600 #30 tabs 08/09/25 prednisone 1 mg tablet 1 mg PO DAILY #588 tabs 09/01/25 polyethylene glycol 3350 17 gram 17 g PO DAILY 14 days #14 ea 09/05/25 oral powder packet (Miralax) dapagliflozin propanediol 10 mg 10 mg PO DAILY #90 tabs 09/07/25 tablet (Farxiga) fluoxetine 10 mg capsule 10 mg PO DAILY #90 caps 09/07/25 losartan 25 mg tablet 25 mg PO DAILY #90 tabs 09/07/25 Allergies Allergy/AdvReac Type Severity Reaction Status Date / Time penicillin V Allergy Unknown hives Verified 09/10/25 08:25 Penicillins (PENICILLINS) Allergy Unknown RASH,DIZZIN Verified 09/10/25 08:25 ESS Review of Systems Review of Systems: Yes all other systems are reviewed and are negative [facility] Past Medical History Medical History Dermatomyositis Elevated CK CAD (coronary artery disease) STEMI (ST elevation myocardial infarction) GERD (gastroesophageal reflux disease) Physical exam, pre-employment Sebaceous cyst RUQ pain Cervical polyp Muscle strain of right scapular region H. pylori infection Overweight (BMI 25.0-29.9) Hypertension Hypothyroidism correction (current) use of insulin Diabetes type 2, uncontrolled Surgical History Hx of knee surgery History of coronary artery stent placement Hx of tubal ligation Hx of cholecystectomy Family History Family History Unknown No problems noted. Father Diabetes Heart disease Mother Diabetes Hypertension Heart disease Brother Lung cancer Sister Heart disease Social History Social History Household Members: Family Housing: House Are you a primary home health care provider to a significant other at home: No Do you presently have visiting nurse or other home services: Yes Alcohol intake: never Patient Tobacco Use Status: Never used Tobacco Smoked in Last 30 Days: No e-Cigarette/Vaping Use: Never Used Second Hand Smoke Exposure: No Use of substances other than those prescribed or required for medical reasons: No Advance Directives: Yes Advance Directives on File: Yes Advance Directives Date on File: 09/04/25 Patient : No service: No Current occupational status: employed and disabled 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 Oriented X3. No acute distress. Head: normocephalic, atraumatic. Eyes: Pupils equal, round and reactive to light. ENT: Pharynx normal. No tonsillar swelling or exudate. Normal inspection of the bilateral tympanic membranes, partially obscured by cerumen on the right. Neck: Normal inspection. Neck supple. CVS: Normal heart rate and rhythm. Pulses normal. Respiratory: No respiratory distress. Breath sounds normal. Abdomen: Soft and nontender. +BS x4 Skin: Skin warm and dry. Normal skin color. Normal skin turgor. No rashes. Extremities: No lower extremity edema. No joint swelling. Neuro/psych: Oriented X 3. No motor deficit. No sensory deficit. CN II-XII intact. Normal speech and cognition. Steady gait and nonfocal Vital Signs: Vital Signs: Last Vital Signs Temp 97.1 F 09/10/25 11:04 Pulse 68 09/10/25 11:04 Resp 19 09/10/25 11:04 BP 167/71 H 09/10/25 11:04 Pulse Ox 100 09/10/25 11:04 O2 Del Method Room Air 09/10/25 11:04 BMI result Body Mass Index 24.4 Medications Administered Discontinued Medications Generic Name Dose Route Start Last Admin Trade Name Freq PRN Reason Stop Dose Admin Isosorbide Mononitrate 30 mg 09/10/25 08:44 09/10/25 09:07 Isosorbide Mononitrate 30 Mg Tab.Er.24h PO 09/10/25 08:45 30 mg ONCE ONE Administration Protocol Losartan Potassium 25 mg 09/10/25 09:02 09/10/25 09:07 Losartan Potassium 25 Mg Tablet PO 09/10/25 09:03 25 mg ONCE ONE Administration Protocol Metoprolol Succinate 50 mg 09/10/25 08:44 09/10/25 09:07 Metoprolol Succinate Er 50 Mg Tab.Er.24h PO 09/10/25 08:45 50 mg ONCE ONE Administration Protocol Medical Decision Making Medical Decision Making [facility] Narrative: 64-year-old female with history of hypertension, tinnitus who presents to the ER for evaluation of frontal headache, described as pressure-like that started around 2 or 3 in the morning. She reports it is associated with bilateral tinnitus, worse than her usual tinnitus. No hearing loss, vision changes, chest pain. Blood pressure on arrival was 202/86. Physical exam is unremarkable, nonfocal. Home meds reviewed and she was ordered for her home oral antihypertensives. Labs were sent and are unremarkable. Troponin is negative. Repeat blood pressures after her home meds improved to the 160s initially, now 135 systolic. She is feeling much better, headache resolved. We discussed the importance of medication compliance, BP monitoring and following up with her primary care doctor. At this point, comfortable discharge home with outpatient follow-up. Patient expressed understanding and agrees with plan Differential Diagnosis Differential Diagnoses: The differential diagnosis associated with the presentation includes Hypertensive urgency, hypertensive emergency, accelerated hypertension, tension headache, migraine, low clinical suspicion for ICH, aneurysm Admission/Observation Consideration of admission/observation: Escalation of care including admission/observation considered BP improved with oral meds Lab Data MDM Lab Attestation statement: I reviewed the patient's lab results. Stable anemia, thrombocytosis 09/10/25 08:53 09/10/25 08:53 Labs: Lab Results 09/10/25 09/10/25 Range/Units 08:53 08:54 WBC 9.8 (4.8-10.8) X10*3/uL RBC 4.49 (4.20-5.50) X10*6/uL Hgb 11.7 L (12.0-16.0) g/dl Hct 36.3 L (37.0-47.0) % MCV 80.8 (80.0-98.0) fL MCH 26.1 L (27.0-33.0) pg MCHC 32.2 (31.0-35.0) g/dl RDW 15.9 (11.0-16.0) % Plt Count 466 H (160-400) X10*3/uL MPV 8.3 L (9.4-12.3) fL Immature Gran % (Auto) 0.3 (0.0-0.4) % Neut % (Auto) 69.5 (45-73) % Lymph % (Auto) 21.7 (20-40) % [place] % (Auto) 6.6 (2-11) % Eos % (Auto) 1.5 (0-4) % Baso % (Auto) 0.4 (0-2) % Lymph # (Auto) 2.1 (1.2-4.9) X10*3/uL [place] # (Auto) 0.7 (0.1-1.2) X10*3/uL Eos # (Auto) 0.2 (0.0-0.4) X10*3/uL Baso # (Auto) 0.0 (0.0-0.2) X10*3/uL Abs Immat Gran (auto) 0.03 (0.00-0.03) X10*3/uL Absolute Neuts (auto) 6.8 (2.0-8.3) x10*3/uL Absolute Nucleated RBC 0.000 (0.0-0.012) X10*3/uL Nucleated RBC % (auto) 0.0 (0.0-0.2) /100WBC Sodium 138 (135-145) mmol/L Potassium 3.6 D (3.3-5.1) mmol/L Chloride 104 (96-108) mmol/L Carbon Dioxide 25 (22-29) mmol/L Anion Gap 13 (12-20) BUN 15 (9-16) mg/dL Creatinine 0.64 (0.5-1.4) mg/dL Estim Creat Clear Calc 78.6 Estimated GFR > 60 Random Glucose 181 H (60-115) mg/dL Calcium 9.6 (8.4-10.2) mg/dL Magnesium 1.7 (1.6-2.6) mg/dL Total Bilirubin 0.6 (0.0-1.0) mg/dL Direct Bilirubin 0.2 (0.0-0.5) mg/dL AST 24 (5-31) U/L ALT 19 (0-31) U/L Alkaline Phosphatase 78 (39-117) U/L Troponin I High Sens 6.1 (<3.5-17.0) ng/L Total Protein 9.3 H (6.5-8.0) g/dL Albumin 4.1 (3.5-5.0) g/dL Urine Color Yellow Urine Appearance Clear Urine pH 6.0 (5.0-9.0) Ur Specific [place] 1.015 (1.005-1.025) Urine Protein Negative (Neg-Trace) mg/dL Urine Glucose (UA) >=1000 H (Negative) mg/dL Urine Ketones Negative (Negative) mg/dL Urine Blood Negative (Negative) Urine Nitrite Negative (Negative) Ur Leukocyte Esterase Small (1+) H (Negative) Urine RBC 0-2 (0-2) /HPF Urine WBC 0-5 (0-5) /HPF Ur Squamous Epith Cells 0-2 (0-2) /HPF Urine Bacteria None Seen (None Seen) Hyaline Casts 0-2 (0-2) /LPF Independent Interpretation I performed an independent interpretation of an: EKG Interpretation: EKG with normal sinus rhythm, ventricular rate 80 beats per minute, no ST segment elevations or depressions, normal NC interval, normal QTC External Record Review External record reviewed: Office record and Outpatient record Tests considered The following testing was considered but not selected: CT scan of the head considered, low suspicion for intracranial bleed, hemorrhagic stroke Prescription Management I considered prescription management with: Pain Medication and Other (Antihypertensive) Chronic Conditions Patient?s care impacted by: Hypertension Critical Care Time Critical Care Time Critical Care Time: No Discharge Plan Discharge Clinical Impression: Headache, Hypertension Patient Disposition: Home, Self-Care Instructions: Acute Headache (DC), Hypertension (ED) Additional Instructions: Your lab workup today was unremarkable. Your blood pressure was very elevated when you came into the ER. Your given your blood pressure medications, you are on 3 of them at home. It is important that you take all of her blood pressure medications every day. Recommend monitoring her blood pressure once or twice a day at home, keeping a record for your PCP. Follow-up with your doctor. If you develop new or worsening symptoms call 911 or come back to the ER for further evaluation. Prescriptions: No Action (DME) pen needle, diabetic [BD Corin 2nd Gen Pen Needle] 32 gauge x 32 needle See Rx Instructions .MEDSUPPLY Qty: 100 4RF Rx Instructions: once a day (DME) blood-glucose meter [FreeStyle Lite Meter] Kit See Rx Instructions .Route Qty: 1 0RF Rx Instructions: As directed TID (DME) blood pessure cuff See Rx Instructions .Route .MEDSUPPLY Qty: 1 0RF Rx Instructions: As directed (DME) cane Device See Rx Instructions .Route Qty: 1 0RF Rx Instructions: As directed metformin 1,000 mg tablet 1,000 mg PO BID Qty: 180 1RF (DME) lancets [TRUEplus Lancets] 33 gauge misc See Rx Instructions .ROUTE TID Qty: 100 11RF Rx Instructions: As directed check BS TID ferrous sulfate 325 mg (65 mg iron) Tablet 325 mg PO BID Qty: 60 6RF Brilinta 90 mg tablet 90 mg PO BID Qty: 60 11RF Rx Instructions: started 10/2024 (DME) pen needle, diabetic 32 gauge x 5/32 needle See Rx Instructions .Route Qty: 100 1RF Rx Instructions: As directed (DME) FreeStyle Lite Strips Strip See Rx Instructions .ROUTE .MEDSUPPLY Qty: 100 5RF Rx Instructions: 3 times a day cholecalciferol (vitamin D3) 50 mcg (2,000 unit) capsule 50 mcg PO DAILY Qty: 90 3RF levothyroxine 150 mcg tablet 150 mcg PO DAILY@0600 Qty: 30 4RF isosorbide mononitrate 30 mg tablet extended release 24 hr 30 mg PO DAILY Qty: 90 1RF fluoxetine 10 mg capsule 10 mg PO DAILY Qty: 90 2RF dapagliflozin propanediol [Farxiga] 10 mg tablet 10 mg PO DAILY Qty: 90 2RF losartan 25 mg tablet 25 mg PO DAILY Qty: 90 2RF (DME) lancets [FreeStyle Lancets] 28 gauge misc See Rx Instructions .ROUTE .MEDSUPPLY Qty: 100 11RF Rx Instructions: As directed three times a day (DME) FreeStyle Control Solution See Rx Instructions .ROUTE .MEDSUPPLY Qty: 1 Rx Instructions: As directed (DME) pen needle, diabetic [BD Ultra-Fine Corin Pen Needle] 32 gauge x 5/32 needle See Rx Instructions .ROUTE .MEDSUPPLY Qty: 100 3RF Rx Instructions: As directed once daily polyethylene glycol 3350 [Miralax] 17 gram powder in packet 17 g PO DAILY 14 Days Qty: 14 0RF melatonin 10 mg capsule 10 mg PO BEDTIME PRN (Reason: sleep) Qty: 30 7RF aspirin [Adult Low Dose Aspirin] 81 mg tablet,delayed release (DR/EC) 81 mg PO DAILY Qty: 90 3RF metoprolol succinate 50 mg tablet extended release 24 hr 50 mg PO DAILY Qty: 90 3RF insulin lispro [Humalog KwikPen Insulin] 100 unit/mL insulin pen See Rx Instructions subcut USEASDIRECTD Qty: 15 3RF Rx Instructions: inject according to sliding scale subcutaneously use as directed; < 60 drink juice, 61- 150 no insulin, 151- 230 2 u , 231- 280 4 u, 281-330 6 u , 331-380 8 u and > 380 use 10 u use before lunch insulin glargine [Lantus Solostar U-100 Insulin] 100 unit/mL (3 mL) insulin pen 9 unit subcut DAILY 30 Days Qty: 2.7 3RF Repatha Syringe 140 mg/mL syringe 140 mg subcut Q2W Qty: 1 0RF prednisone 1 mg tablet 1 mg PO DAILY Qty: 588 0RF Rx Instructions: Prednisone 6mg x 4 weeks then 5mg x 4 weeks then 4mg x 4 weeks then 3mg x 4 weeks then 2mg x 4 weeks then 1mg x 4 weeks then stop Referrals: Po,Conor Alba MD [Primary Care Provider, Internal Medicine] Print Language: Ethiopian
[2025-09-10 08:57] LABS: MANUAL DIFF FLAG NO
[2025-09-10 08:59] LABS: Appearance Urine Clear; Glucose Urine UA >=1000 mg/dL (Negative); PH 6.0 (5.0-9.0); Specific Gravity - Urine 1.015 (1.005-1.025); UMIC TRIGGER UACC YES
[2025-09-10 08:59] LABS: Hematocrit 36.3 % (37.0-47.0); Hemoglobin 11.7 g/dl (12.0-16.0); Imm Gran Abs Auto 0.03 X10*3/uL (0.00-0.03); Imm Gran Pct Auto 0.3 % (0.0-0.4); Lymphocytes Absolute Auto 2.1 X10*3/uL (1.2-4.9); Mean Corpuscular HGB Conc 32.2 g/dl (31.0-35.0); Mean Corpuscular Hemoglobin 26.1 pg (27.0-33.0); Mean Corpuscular Volume 80.8 fL (80.0-98.0); NRBC Abs Auto 0.000 X10*3/uL (0.0-0.012); NRBC Pct Auto 0.0 /100WBC (0.0-0.2); Platelet Count 466 X10*3/uL (160-400); Red Blood Count 4.49 X10*6/uL (4.20-5.50); White Blood Count 9.8 X10*3/uL (4.8-10.8)
--- OUTSIDE RECORDS SUMMARY | 2025-09-10 09:02 | XMS_ITS | Clinical Summary ---
Author Organization [employer] Address [address] [facility] [address] [place] [address] Care Team Providers Care Academic Support Specialist Name Role Phone Unavailable Primary [...] long-term current use of insulin ([facility]) MAMMOGRAM GENERIC Routine 10/05/2022 [...] Legacy Procedure: Mammography Report 1 Kimberley Cunningham JUNIOR SYSTEMS ENGINEER IMG BI PROCEDURES Final Result * LIPID [...] LDL-C. Jesús SS et al. KORTNEY. 2013;310(19): 2728-4993 (http://education.Outside.in.com/faq/EWX076) Non-HDL Cholesterol 87 <130 mg/dL (calc) [facility] Comment: For patients with diabetes plus 1 major ASCVD risk factor, treating to a non-HDL-C goal of <100 mg/dL (LDL-C of <70 mg/dL) is considered a therapeutic option. Triglycerides 91 <150 mg/dL CONVE RTED [facility]GACY [facility] 10/04/2022 8:50 AM EST Kimberley Cunningham JUNIOR SYSTEMS ENGINEER LAB BLOOD ORDERABLES Final Res ult [facility]VERTED [facility]GAC[facility] * MICROALBUMIN, RANDOM (07/13/2021 10:40 AM EDT) Creatinine Urine 30.03 mg/dL [facility] Microalbum/Creati nine Ratio Ur TNP ug/mg cr [facility] Comment: Unable to calculate albumin/creatinine ratio due to low microalbumin or creatinine result. Microalbumin Urine <5.0 mg/L [facility] 07/13/2021 10:4 0 AM EDT Historical Provider HISTORICAL/NON ORDERABLE LABS Final Result Performing Organization Address City/[facility]/ZIP Co de Phone Number [facility] [address] * Pap Smear (03/14/2019) Pap Negative [...] Most Recently Relevant to Health Maintenance Insurance [facility] [place] AD[place]
--- OUTSIDE RECORDS SUMMARY | 2025-09-10 09:02 | XMS_ITS | Encounter Summary ---
Author Organization [employer] Address [address] [place] [address] Care Team Providers Care Tower Loader Operator Name Role Phone Unavailable Primary Care Provider Unavailabl e Reason for Visit * Reason Comments Med Refill Encounter Details Date Type Department Care Team (Late st Contact Info) Description 01/16/2025 Refill [facility] MED[facility]INE [address] [place] [address] Kimberley Cunningham FNP [address] [place] [address] Type 2 diabetes mellitus with hyperglycemia (CMS/HCC) [...]
--- OUTSIDE RECORDS SUMMARY | 2025-09-10 09:03 | XMS_ITS | Encounter Summary ---
Author Organization [employer] Address [address] [place] [address] Care Team Providers Care Graduate Fellow Name Role Phone Unavailable Primary Care Provider Unavailabl e Reason for Visit * Reason Comments Med Refill Encounter Details Date Type Department Care Team ([facility] st Contact Info) Description 05/21/2024 Refill [facility] MED[facility]INE [address] [place] [address] Kimberley Cunningham FNP [address] [place] [address] Primary hypertension Social History Tobacco Use Types [...] t he electric, gas, oil or water [employer] threatened to shut off services in your [...]
--- OUTSIDE RECORDS SUMMARY | 2025-09-10 09:03 | XMS_ITS | Encounter Summary ---
Author Organization [employer] Address [address] [facility] [address] [place] [address] Care Team Providers Care Credit Officer Name Role Phone Unavailable Primary Care Provider Unavailabl e Reason for Visit * Reason Comments Med Refill Encounter Details Date Type Department Care Team ([facility] st Contact Info) Description 10/13/2024 Refill [facility] [address] [place], [place] [phone] Kimberley Cunningham, EILEEN [address] [place] [address] Type 2 diabetes mellitus without complication, with long-term current use of insulin ([facility]) [...]
--- OUTSIDE RECORDS SUMMARY | 2025-09-10 09:03 | XMS_ITS | Encounter Summary ---
Author Organization [employer] Address [address] [place] [address] Care Team Providers Care Marketing Analytics Manager Name Role Phone Unavailable Primary Care Provider Unavailabl e Reason for Visit * Reason Comments Med Refill Encounter Details Date Type Department Care Team (Late st Contact Info) Description 01/12/2025 Refill [facility] MEDICINE [address] [place] [address] Kimberley Cunningham FNP [address] [place] [address] Type 2 diabetes mellitus with hyperglycemia (CMS/HCC) [...]
--- OUTSIDE RECORDS SUMMARY | 2025-09-10 09:03 | XMS_ITS | Encounter Summary ---
Author Organization [facility] Address [address] [place] [address] Phone Care Team Providers Care Marble Machine Operator Name Role Phone Unknown, Unknown Primary Care Provider Qamar byrd Pcp, Unknown Unavailable Unavailable Conor Garcia MD Primary Care Provider [phone] Encounter Details Date Type Department Care Team (Latest Contact Info) Description 04/17/2019 Ancillary Orders [facility] [address] [place] [id number] Anson Falcon, DO [address] [place] [address] Chest pain, unspecified type; Palpitations Social History [...] Palpitations documented in this encounter Care Teams Marble Machine Operator Relationship Specialty Start Date End Date Unknown, Unknown, PCP - General 04/09/19 12/15/24 Conor Garcia MD [address] [place] [address] PCP - General Internal Medicine 12/16/24 Pcp, Unknown 04/09/19 documented as of this encounter Additional Source Comments The information contained in this document represents components of the legal health record. It is not the complete legal health record.[facility]
--- OUTSIDE RECORDS SUMMARY | 2025-09-10 09:03 | XMS_ITS | Encounter Summary ---
Author Organization [employer] Address [address] [facility] [address] [place] [address] Care Team Providers Care Pharmaceutical Salesperson Name Role Phone Unavailable Primary Care Provider Unavailabl e Reason for Visit * Reason Comments Med Refill Encounter Details Date Type Department Care Team ([facility] st Contact Info) Description 08/15/2024 Refill [facility] [address] [place] [address] Kimberley Cunningham, SADDLE MECHANIC [address] [place] [address] Hypothyroidism, unspecified type Social History Tobacco Use [...]
--- OUTSIDE RECORDS SUMMARY | 2025-09-10 09:03 | XMS_ITS | Encounter Summary ---
Author Organization [employer] Address [address] [facility] [address]t [place] [address] Care Team Providers Care Cyber Intel Planner Name Role Phone Kimberley Cunningham METAL CUT OFF SAW TENDER Primary Care Provider [phone] Encounter Details Date Type Department Care Team ([facility] st Contact Info) Description 10/12/2023 Abstract [facility] MED[facility]INE [address] [place], [place] [phone] Sandra Villareal Social History Tobacco Use Types [...] documented as of this encounter Care Teams Cyber Intel Planner Relationship Specialty Start Date End Date Kimberley Cunningham FNP [address] [place] [phone] PCP - General Family Medicine 07/23/22 03/20/24 documented as of this encounter
--- OUTSIDE RECORDS SUMMARY | 2025-09-10 09:03 | XMS_ITS | Encounter Summary ---
Author Organization [employer] Address [address] [facility] [address] [place] [address] Care Team Providers Care Director Hr Communications Name Role Phone Kimberley Cunningham METAL MODEL BUILDER Primary Care Provider [phone] Reason for Visit * Reason Comments Med Refill Encounter Details Date Type Department Care Team ([facility] st Contact Info) Description 09/08/2023 Refill [facility] MED[facility]INE [address] [place], [place] [phone] Jojo Washburn MD [address] [place], [place] [phone] Depressive disorder Social History Tobacco Use Types [...] as of this encounter Care Teams Director Hr Communications Relationship Specialty Start Date End Date Kimberley Cunningham FNP [address] [place] [phone] PCP - General Family Medicine 07/23/22 03/20/24 documented as of this encounter
--- OUTSIDE RECORDS SUMMARY | 2025-09-10 09:03 | XMS_ITS | Clinical Summary ---
Author Organization [facility] Address [address] [facility] [address] [place] [address] Phone Care Team Providers Care Test Deck Supervisor Name Role Phone Pcp, Unknown Unavailable Unavailable Conor Garcia MD Primary Care Provider Allergies Active Allergy Reactions Criticality Noted Date [...] Active ferrous sulfate 325 mg (65 mg tangirnaq iron) tablet Take 325 mg by mouth. [...] (2 of 2 - PCV) 2012 11/03/2003 RSV VACCINE (1 - Risk 50-74 years 1-dose series) 2012 ZOSTER VACCINES (1 of 2) 2012 MAMMOGRAM 09/26/2021 09/26/2019, 09/19/2018 INFLUENZA VACCINE (#1) 2025 COVID-19 VACCINE (1 - 2024-2 6 season) 2025 LIPID PANEL 12/18/2025 12/18/2024, 10/04/2022 [...] unspecified vessel or lesion type, unspecified whether new [place] or transplanted heart from Last 3 Months or Most Recently Relevant to Health Maintenance Results * (ABNORMAL) Lipid panel (12/18/2024 11:58 AM EST) HDL 43 mg/dL [facility] Comment: Interpretation <40 mg/dL: Low HDL cholesterol (major risk factor for CHD) Greater than or equal to 60 mg/dL: High HDL cholesterol ( negative risk factor for CHD) HDL - cholesterol is affected by a number of factors, e.g. smoking, excerise, hormones, sex and age. CHOLESTEROL 182 0 - 240 mg/dL [facility] TRIGLYCERIDES 185(H) 30 - 160 mg/dL [facility] LDL 102 50 - 129 mg/dL [facility] Comment: LDL levels in terms of risk for coronary heart disease: <100 mg/dL: Optimal 100-129 mg/dL: Near or above optimal 130-159 mg/dL: Borderline high 160-189 mg/dL: High >190 mg/dL: Very High CARDIAC RISK RATIO 4.2 3.3 - 4.4 C [facility] Blood 12/18/2024 11:5 8 AM EST 12/18/2024 12:09 PM EST Carl Rosa MD LAB BLOOD ORDERABLES Final Re sult [facility] [address] [place] [address] from Last 3 Months or Most Recently Relevant to Health Maintenance Insurance [place] [address] [place] [address] [facility] Member Subscriber Plan [facility] Name:Denise Pearson I Relation to Subscriber:Self Name:Denise Pearson I Payer ID:[id number] Group ID:[id number] Type:Medicaid Address: [address] [place] [address] [facility] [place] [address] [place] [address] ACO Care Teams Test Deck Supervisor Relationship Specialty Start Date End Date Conor Garcia MD [address] [place] [id number] PCP - General Internal Medicine 12/16/24 Pcp, Unknown 04/09/19 Additional Source Comments The information contained in this document represents components of the legal health record. It is not the complete legal health record.[facility]
--- OUTSIDE RECORDS SUMMARY | 2025-09-10 09:03 | XMS_ITS | Encounter Summary ---
Author Organization [employer] Address [address] 7t [place] [address] Care Team Providers Care Delivery Driver Assistant Name Role Phone Unavailable Primary Care Provider Unavailabl e Reason for Visit * Reason Comments Med Refill Encounter Details Date Type Department Care Team ([facility] st Contact Info) Description 06/17/2024 Refill [facility] MEDICINE [address] [place] [address] Kimberley Cunningham FNP [address] [place] [address] Other hyperlipidemia; Type 2 diabetes mellitus with [...]
--- OUTSIDE RECORDS SUMMARY | 2025-09-10 09:03 | XMS_ITS | Encounter Summary ---
Author Organization [email or web address] Address [address] 7t [place] [address] Care Team Providers Care Stitchdowns Toe Former Name Role Phone Unavailable Primary Care Provider Unavailabl e Reason for Visit * Reason Comments Med Refill Encounter Details Date Type Department Care Team ([facility] st Contact Info) Description 11/13/2024 Refill [facility] MEDICINE [address] [place] [address] Kimberley Cunningham FNP [address] [place] [address] Type 2 diabetes mellitus without complication, with long-term current use of insulin ([facility]) Social History Tobacco Use Types Packs/Day [...]
--- OUTSIDE RECORDS SUMMARY | 2025-09-10 09:03 | XMS_ITS | Encounter Summary ---
Author Organization [employer] Address [address] [facility] 7t [place] [address] Care Team Providers Care Service Worker Helper Name Role Phone Unavailable Primary Care Provider Unavailabl e Reason for Visit * Reason Comments Med Refill Encounter Details Date Type Department Care Team ([facility] st Contact Info) Description 09/10/2024 Refill [facility]EDS [address] [place], [place] [id number] Kimberley Cunningham, EILEEN [address] [place] [address] Depressive disorder Social History Tobacco Use Types [...] t he electric, gas, oil or water [employer] threatened to shut off services in your [...]
--- OUTSIDE RECORDS SUMMARY | 2025-09-10 09:03 | XMS_ITS | Encounter Summary ---
Author Organization [employer] Address [address] 7t [place] [address] Care Team Providers Care Business Database Analyst Name Role Phone Unavailable Primary Care Provider Unavailabl e Reason for Visit * Reason Comments Med Refill Encounter Details Date Type Department Care Team ([facility] st Contact Info) Description 08/12/2024 Refill [facility] MEDICINE [address] [place] [address] Kimberley Cunningham FNP [address] [place] [address] Vitamin D insufficiency Social History Tobacco Use [...] the past 12 months, has t he [employer], gas, oil or water company threatened to [...]
--- OUTSIDE RECORDS SUMMARY | 2025-09-10 09:03 | XMS_ITS | Encounter Summary ---
Author Organization [employer] Address [address] [facility] 7t [place] [address] Care Team Providers Care Global Professional Name Role Phone Kimberley Cunningham Primary Care Provider [phone] Reason for Visit * Reason Comments Med Refill Encounter Details Date Type Department Care Team ([facility] st Contact Info) Description 07/26/2023 Refill [facility] MEDICINE [address] [place] [address] Kimberley Cunningham FNP [address] [place] [address] Depressive disorder Social History Tobacco Use Types [...] documented as of this encounter Care Teams Global Professional Relationship Specialty Start Date End Date Kimberley Cunningham FNP [address] [place] [address] PCP - General Family Medicine 07/23/22 03/20/24 documented as of this encounter
--- OUTSIDE RECORDS SUMMARY | 2025-09-10 09:03 | XMS_ITS | Encounter Summary ---
Author Organization [employer] [facility] Address [address] [facility] 7t [place] [address] Care Team Providers Care Coupling Machine Operator Name Role Phone Kimberley Cunningham Primary Care Provider [phone] Encounter Details Date Type Department Care Team (Latest Contact Info) Description 01/20/2021 Abstract [facility] [...] on filedocumented in this encounter Care Teams Coupling Machine Operator Relationship Specialty Start Date End Date Kimberley Cunningham FNP [address] [place] [address] PCP - General Family Medicine 07/23/22 03/20/24 documented as of this encounter
--- OUTSIDE RECORDS SUMMARY | 2025-09-10 09:03 | XMS_ITS | Encounter Summary ---
Author Organization [facility] Address [address] [facility] [address] [place] [address] Phone Care Team Providers Care Labor Utilization Superintendent Name Role Phone Unknown, Unknown Primary Care Provider Qamar byrd Pcp, Unknown Unavailable Unavailable Conor Garcia MD Primary Care Provider [phone] Encounter Details Date Type Department Care Team (Latest Contact Info) Description 04/10/2019 Ancillary Orders [facility] [address] [place] [address] [place] [address] Anson Falcon, DO [address] [place] [address] Palpitations; Other chest pain Social History Tobacco [...] pain documented in this encounter Care Teams Labor Utilization Superintendent Relationship Specialty Start Date End Date Unknown, Unknown, MD PCP - General 04/09/19 12/15/24 Po, Conor Carcamo MD [address] [place] [address] Drive [address] [place] [address] PCP - General Internal Medicine 12/16/24 Pcp, Unknown 04/09/19 documented as of this encounter Additional Source Comments The information contained in this document represents components of the legal health record. It is not the complete legal health record.[facility]
--- OUTSIDE RECORDS SUMMARY | 2025-09-10 09:03 | XMS_ITS | Encounter Summary ---
Author Organization [employer] [facility] Address [address] [facility] 7t [place] [address] Care Team Providers Care Tank Operator Name Role Phone Kimberley Cunningham Primary Care Provider [phone] Encounter Details Date Type Department Care Team (Latest Contact Info) Description 01/07/2020 Abstract [facility] CONVERSIONS Dental, Provider, DDS Social History [...] on filedocumented in this encounter Care Teams Tank Operator Relationship Specialty Start Date End Date Kimberley Cunningham FNP [address] [place] [address] PCP - General Family Medicine 07/23/22 03/20/24 documented as of this encounter
--- OUTSIDE RECORDS SUMMARY | 2025-09-10 09:03 | XMS_ITS | Encounter Summary ---
Author Organization [employer] Address [address] 7t [place] [address] Care Team Providers Care Fish Frog Or Oyster Farmer Name Role Phone Unavailable Primary Care Provider Unavailabl e Reason for Visit * Reason Comments Med Refill Encounter Details Date Type Department Care Team ([facility] st Contact Info) Description 05/20/2024 Refill [facility] MEDICINE [address] [place] [address] Kimberley Cunningham FNP [address] [place] [address] Primary hypertension Social History Tobacco Use Types [...] t he electric, gas, oil or water [employer] threatened to shut off services in your [...]
[2025-09-10 09:07] LABS: UACC Culture Trigger YES
[2025-09-10] MEDS: Metoprolol Succinate ER 50 MG TAB.ER.24H PO (09:07)
[2025-09-10 09:21] LABS: Alanine Aminotransferase 19 U/L (0-31); Albumin Level 4.1 g/dL (3.5-5.0); Alkaline Phosphatase 78 U/L (39-117); Anion Gap 13 (12-20); Aspartate Amino Transferase 24 U/L (5-31); Blood Urea Nitrogen 15 mg/dL (9-16); Calcium 9.6 mg/dL (8.4-10.2); Carbon Dioxide 25 mmol/L (22-29); Chloride 104 mmol/L (96-108); Creatinine Clr Calc Pharmacy 78.6; Estimated Glomerular Filt Rate > 60; Magnesium 1.7 mg/dL (1.6-2.6); Potassium 3.6 mmol/L (3.3-5.1); Sodium 138 mmol/L (135-145); Total Protein 9.3 g/dL (6.5-8.0)
[2025-09-10 09:24] LABS: Troponin-I High Sensitivity 6.1 ng/L (<3.5-17.0)
== END 2025-09-10 12:47 | disposition home or self-care (01) ==
PROVIDERS: Physician Assistant; Emergency Provider Emergency Medicine; PCP Internal Medicine
DX: R51.9 Headache, unspecified (principal); I10 Essential (primary) hypertension; D64.9 Anemia, unspecified; M79.602 Pain in left arm; E11.9 Type 2 diabetes mellitus without complications; Z79.4 Long term (current) use of insulin; H93.13 Tinnitus, bilateral; Z79.899 Other long term (current) drug therapy; Z86.79 Personal history of other diseases of the circulatory system
CPT/HCPCS: 36415; 80048; 80076; 81001; 81003; 83735; 84484; 85025; 87086; 93005; 99283; 99285

== ENCOUNTER → 2025-09-10 08:27 | Outpatient (BNV) | payer OTHER, SELFPAY | PROVIDERS: Emergency Provider Emergency Medicine; PCP Internal Medicine; Visit Provider Internal Medicine Cardiovascular Disease | DX: R94.31 Abnormal electrocardiogram [ECG] [EKG] (principal); I10 Essential (primary) hypertension; R51.9 Headache, unspecified | CPT/HCPCS: 93010 ==

== ENCOUNTER 2025-09-11 09:00 | Outpatient (REF) | payer OTHER, SELFPAY ==
[2025-09-11 09:18] LABS: MANUAL DIFF FLAG NO
--- OUTSIDE RECORDS SUMMARY | 2025-09-11 09:39 | XMS_ITS | Encounter Summary ---
Author Organization [employer] Address [address] 7t [place] [address] Care Team Providers Care Porter Luggage Name Role Phone Unavailable Primary Care Provider Unavailabl e Reason for Visit * Reason Comments Med Refill Encounter Details Date Type Department Care Team ([facility] st Contact Info) Description 06/17/2024 Refill [facility] MEDICINE [address] [place] [address] Kimberley Cunningham FNP [address] [place] [address] Other hyperlipidemia; Type 2 diabetes mellitus with [...]
--- OUTSIDE RECORDS SUMMARY | 2025-09-11 09:39 | XMS_ITS | Clinical Summary ---
Author Organization [facility] Address [address] [facility] [address] [facility] [address] [place] [address] Phone Care Team Providers Care Consolidation Accountant Name Role Phone Pcp, Unknown Unavailable Unavailable [...] Active ferrous sulfate 325 mg (65 mg [place] iron) tablet Take 325 mg by mouth. [...] unspecified vessel or lesion type, unspecified whether [place] or transplanted heart from Last 3 Months [...] RISK RATIO 4.2 3.3 - 4.4 C [facility] Blood 12/18/2024 11:5 8 AM EST 12/18/2024 12:09 PM EST Carl Rosa MD LAB BLOOD ORDERABLES Final Re sult [facility] [address] [place] [address] from Last 3 Months or Most Recently Relevant to Health Maintenance Insurance [place] [address] [place] [address] [facility] [facility] [place] [facility] [place] [address] [place] [address] ACO Care Teams Consolidation Accountant Relationship Specialty Start Date End Date Conor Garcia MD [address] [place] [address] PCP - General Internal Medicine 12/16/24 Pcp, Unknown 04/09/19 Additional Source Comments The information contained in this document represents components of the legal health record. It is not the complete legal health record.[facility]
--- OUTSIDE RECORDS SUMMARY | 2025-09-11 09:39 | XMS_ITS | Encounter Summary ---
Author Organization [employer] Address [address] [address] 7t [place] [address] Care Team Providers Care Math Coach Name Role Phone Unavailable Primary Care Provider Unavailabl e Reason for Visit * Reason Comments Med Refill Encounter Details Date Type Department Care Team (Late st Contact Info) Description 01/12/2025 Refill [facility] MEDICINE [address] [place] [address] Kimberley Cunningham FNP [address] [place] [address] Type 2 diabetes mellitus with hyperglycemia (CMS/HCC) [...]
--- OUTSIDE RECORDS SUMMARY | 2025-09-11 09:39 | XMS_ITS | Encounter Summary ---
Author Organization [employer] Address [address] [facility] 7t [place] [address] Care Team Providers Care Discharge Rn Name Role Phone Unavailable Primary Care Provider Unavailabl e Reason for Visit * Reason Comments Med Refill Encounter Details Date Type Department Care Team ([facility] st Contact Info) Description 09/10/2024 Refill [facility] MED & PEDS [address] [place], [place] [phone] Kimberley Cunningham, EILEEN [address] [place] [address] Depressive disorder Social History Tobacco Use Types [...] t he electric, gas, oil or water [employer] threatened to shut off services in your [...]
--- OUTSIDE RECORDS SUMMARY | 2025-09-11 09:39 | XMS_ITS | Clinical Summary ---
Author Organization [facility] Address [address] [place] [address] Care Team Providers Care Self Storage Manager Name Role Phone Zaria Milan MD Primary Care Provider [phone] Social History Tobacco Use Types Packs/Day Years [...] patient's age to complete this topic Insurance [facility] Medicaid Care Teams Self Storage Manager Relationship Specialty Start Date End Date Zaria Milan MD [address] [place], [place] PCP - General Internal Medicine 02/16/25
--- OUTSIDE RECORDS SUMMARY | 2025-09-11 09:39 | XMS_ITS | Encounter Summary ---
Author Organization [employer] Address [address] 7t [place] [address] Care Team Providers Care Sexer Name Role Phone Unavailable Primary Care Provider Unavailabl e Reason for Visit * Reason Comments Med Refill Encounter Details Date Type Department Care Team ([facility] st Contact Info) Description 05/20/2024 Refill [facility] MEDICINE [address] [place] [address] Kimberley Cunningham FNP [address] [place] [address] Primary hypertension Social History Tobacco Use Types [...] t he electric, gas, oil or water [employer] threatened to shut off services in your [...]
--- OUTSIDE RECORDS SUMMARY | 2025-09-11 09:39 | XMS_ITS | Encounter Summary ---
Author Organization [employer] Address [address] 7t [place] [address] Care Team Providers Care Professor Of History Name Role Phone Unavailable Primary Care Provider Unavailabl e Reason for Visit * Reason Comments Med Refill Encounter Details Date Type Department Care Team ([facility] st Contact Info) Description 08/12/2024 Refill [facility] MEDICINE [address] [place] [address] Kimberley Cunningham FNP [address] [place] [address] Vitamin D insufficiency Social History Tobacco Use [...] the past 12 months, has t he [email or web address], gas, oil or water company threatened to [...]
--- OUTSIDE RECORDS SUMMARY | 2025-09-11 09:39 | XMS_ITS | Encounter Summary ---
Author Organization [employer] Address [address] 7t [place] [address] Care Team Providers Care Rewinder Operator Helper Name Role Phone Unavailable Primary Care Provider Unavailabl e Reason for Visit * Reason Comments Med Refill Encounter Details Date Type Department Care Team ([facility] st Contact Info) Description 05/21/2024 Refill [facility] MEDICINE [address] [place] [address] Kimberley Cunningham FNP [address] [place] [address] Primary hypertension Social History Tobacco Use Types [...] t he electric, gas, oil or water [employer] threatened to shut off services in your [...]
--- OUTSIDE RECORDS SUMMARY | 2025-09-11 09:39 | XMS_ITS | Encounter Summary ---
Author Organization [employer] Address [address] [facility] 7t [place] [address] Care Team Providers Care Orchestra Director Name Role Phone Unavailable Primary Care Provider Unavailabl e Reason for Visit * Reason Comments Med Refill Encounter Details Date Type Department Care Team ([facility] st Contact Info) Description 10/13/2024 Refill [facility] MED & PEDS [address] [place], [place] [phone] Kimberley Cunningham, EILEEN [address] [place] [address] Type 2 diabetes mellitus without complication, with long-term current use of insulin ([facility]) Social History Tobacco Use Types [...]
--- OUTSIDE RECORDS SUMMARY | 2025-09-11 09:39 | XMS_ITS | Encounter Summary ---
Author Organization [employer] Address [address] 7t [place] [address] Care Team Providers Care Melter Operator Name Role Phone Unavailable Primary Care Provider Unavailabl e Reason for Visit * Reason Comments Med Refill Encounter Details Date Type Department Care Team (Late st Contact Info) Description 01/16/2025 Refill [facility] MEDICINE [address] [place] [address] Kimberley Cunningham FNP [address] [place] [address] Type 2 diabetes mellitus with hyperglycemia (CMS/HCC) [...]
--- OUTSIDE RECORDS SUMMARY | 2025-09-11 09:39 | XMS_ITS | Encounter Summary ---
Author Organization [employer] [facility] Address [address] [facility] 7t [place] [address] Care Team Providers Care Associate Automation Engineer Name Role Phone Kimberley Cunningham Primary Care Provider [phone] Encounter Details Date Type Department Care Team [...] on filedocumented in this encounter Care Teams Associate Automation Engineer Relationship Specialty Start Date End Date Kimberley Cunningham FNP [address] [place] [address] PCP - General Family Medicine 07/23/22 03/20/24 documented as of this encounter
--- OUTSIDE RECORDS SUMMARY | 2025-09-11 09:39 | XMS_ITS | Clinical Summary ---
Author Organization [employer] Address [address] [facility] 7t [place] [address] Care Team Providers Care Minister Assistant Name Role Phone Unavailable Primary Care [...] -Pt in the process of re-establishing with [facility] -Per last available consult [...] complication, with long-term current use of insulin ([facility]) MAMMOGRAM GENERIC Routine 10/05/2022 [...] Legacy Procedure: Mammography Report 1 Kimberley Cunningham SQL ENGINEER IMG BI PROCEDURES Final Result * [...] LDL-C. Jesús SS et al. KORTNEY. 2013;310(19): 8578-5236 (http://education.Sailogy.com/faq/LKG789) Non-HDL Cholesterol 87 <130 mg/dL (calc) [facility] Comment: For patients with diabetes plus 1 major ASCVD risk factor, treating to a non-HDL-C goal of <100 mg/dL (LDL-C of <70 mg/dL) is considered a therapeutic option. Triglycerides 91 <150 mg/dL [facility] 10/04/2022 8:50 AM EST Kimberley Cunningham SQL ENGINEER LAB BLOOD ORDERABLES Final Res ult [facility] * MICROALBUMIN, RANDOM (07/13/2021 10:40 AM EDT) Creatinine Urine 30.03 mg/dL [facility] Microalbum/Creati nine Ratio Ur TNP ug/mg cr [facility] Comment: Unable to calculate albumin/creatinine ratio due to low microalbumin or creatinine result. Microalbumin Urine <5.0 mg/L [facility] 07/13/2021 10:4 0 AM EDT Historical Provider HISTORICAL/NON ORDERABLE LABS Final Result Performing Organization Address City/[facility]/ZIP Co de Phone Number [facility] [address] * Pap Smear (03/14/2019) Pap Negative [...] Most Recently Relevant to Health Maintenance Insurance [employer] STAND ADULT
--- OUTSIDE RECORDS SUMMARY | 2025-09-11 09:39 | XMS_ITS | Encounter Summary ---
Author Organization [employer] [facility] Address [address] [facility] 7t [place] [address] Care Team Providers Care Paper Folder Name Role Phone Kimberley Cunningham Primary Care Provider [phone] Encounter Details Date Type Department Care Team (Latest Contact Info) Description 01/07/2020 Abstract [facility] CONVERSIONS Dental, Provider, DDS Social History [...] on filedocumented in this encounter Care Teams Paper Folder Relationship Specialty Start Date End Date Kimberley Cunningham FNP [address] [place] [address] PCP - General Family Medicine 07/23/22 03/20/24 documented as of this encounter
--- OUTSIDE RECORDS SUMMARY | 2025-09-11 09:39 | XMS_ITS | Encounter Summary ---
Author Organization [employer] Address [address]t [place] [address] Care Team Providers Care Stitch Marker Name Role Phone Unavailable Primary Care Provider Unavailabl e Reason for Visit * Reason Comments Med Refill Encounter Details Date Type Department Care Team ([facility] st Contact Info) Description 11/13/2024 Refill [facility] MEDICINE [address] [place] [address] Kimberley Cunningham FNP [address] [place] [address] Type 2 diabetes mellitus without complication, with long-term current use of insulin ([facility]) Social History Tobacco Use Types Packs/Day Years [...]
--- OUTSIDE RECORDS SUMMARY | 2025-09-11 09:39 | XMS_ITS | Encounter Summary ---
Author Organization [employer] Address [address] [facility] 7t [place] [address] Care Team Providers Care Wrapper Rewinder Name Role Phone Unavailable Primary Care Provider Unavailabl e Reason for Visit * Reason Comments Med Refill Encounter Details Date Type Department Care Team ([facility] st Contact Info) Description 08/15/2024 Refill [facility] MED & PEDS [address] [place] [address] Kimberley Cunningham, MATTRESS SPRING ENCASER [address] [place] [address] Hypothyroidism, unspecified type Social History Tobacco Use [...]
--- OUTSIDE RECORDS SUMMARY | 2025-09-11 09:39 | XMS_ITS | Encounter Summary ---
Author Organization [facility] Address [address] [facility] [address] [place] [address] Phone Care Team Providers Care Director Of Operations For Therapy Name Role Phone Unknown, Unknown Primary Care Provider Qamar byrd Pcp, Unknown Unavailable Unavailable Conor Garcia MD Primary Care Provider [phone] Encounter Details Date Type Department Care Team (Latest Contact Info) Description 04/17/2019 Ancillary Orders [facility] [address] [place] [address] Anson Falcon, DO [address] [place] [address] Chest pain, unspecified type; Palpitations Social History [...] Palpitations documented in this encounter Care Teams Director Of Operations For Therapy Relationship Specialty Start Date End Date Unknown, Unknown, PCP - General 04/09/19 12/15/24 Conor Garcia MD [address] [place] [address] PCP - General Internal Medicine 12/16/24 Pcp, Unknown 04/09/19 documented as of this encounter Additional Source Comments The information contained in this document represents components of the legal health record. It is not the complete legal health record.[facility]
--- OUTSIDE RECORDS SUMMARY | 2025-09-11 09:39 | XMS_ITS | Encounter Summary ---
Author Organization [facility] Address [address] [facility] [address] [place] [address] Phone Care Team Providers Care Immigration Law Specialist Name Role Phone Unknown, Unknown Primary Care Provider Qamar byrd Pcp, Unknown Unavailable Unavailable Conor Garcia MD Primary Care Provider [phone] Encounter Details Date Type Department Care Team (Latest Contact Info) Description 04/10/2019 Ancillary Orders [facility] [address] [place] [address] [place] [address] Anson Falcon, DO [address] [place] [address] Palpitations; Other chest pain Social History Tobacco [...] pain documented in this encounter Care Teams Immigration Law Specialist Relationship Specialty Start Date End Date Unknown, Unknown, MD PCP - General 04/09/19 12/15/24 Po, Conor Carcamo MD [address] [place] [address] Drive [address] [place] [address] PCP - General Internal Medicine 12/16/24 Pcp, Unknown 04/09/19 documented as of this encounter Additional Source Comments The information contained in this document represents components of the legal health record. It is not the complete legal health record.[facility]
--- OUTSIDE RECORDS SUMMARY | 2025-09-11 09:40 | XMS_ITS | Encounter Summary ---
Author Organization [employer] Address [address] [facility] 7t [place] [address] Care Team Providers Care Computer Engineering Technologist Name Role Phone Kimberley Cunningham CONTAINER MAKER Primary Care Provider [phone] Reason for Visit * Reason Comments Med Refill Encounter Details Date Type Department Care Team ([facility] st Contact Info) Description 09/08/2023 Refill [facility] MEDICINE [address] [place], [place] [phone] Jojo Washburn MD [address] [place], [place] [phone] Depressive disorder Social History Tobacco Use Types [...] documented as of this encounter Care Teams Computer Engineering Technologist Relationship Specialty Start Date End Date Kimberley Cunningham FNP [address] [place] [phone] PCP - General Family Medicine 07/23/22 03/20/24 documented as of this encounter
--- OUTSIDE RECORDS SUMMARY | 2025-09-11 09:40 | XMS_ITS | Encounter Summary ---
Author Organization [employer] Address [address] [facility] 7t [place] [address] Care Team Providers Care Academic Affairs Dean Name Role Phone Kimberley Cunningham CONTINUOUS MINER OPERATOR HELPER Primary Care Provider [phone] Encounter Details Date Type Department Care Team ([facility] st Contact Info) Description 10/12/2023 Abstract [facility] MEDICINE [address] [place], [place] [phone] Sandra Villareal Social History Tobacco Use Types [...] documented as of this encounter Care Teams Academic Affairs Dean Relationship Specialty Start Date End Date Kimberley Cunningham FNP [address] [place] [address] PCP - General Family Medicine 07/23/22 03/20/24 documented as of this encounter
--- OUTSIDE RECORDS SUMMARY | 2025-09-11 09:40 | XMS_ITS | Encounter Summary ---
Author Organization [employer] Address [address] [facility] 7t [place] [address] Care Team Providers Care Lead Nuclear Medicine Technologist Name Role Phone Kimberley Cunningham Primary Care Provider [phone] Reason for Visit * Reason Comments Med Refill Encounter Details Date Type Department Care Team ([facility] st Contact Info) Description 07/26/2023 Refill [facility] [address] [place] [address] Kimberley Cunningham FNP 505 [place] [address] Depressive disorder Social History Tobacco Use Types [...] documented as of this encounter Care Teams Lead Nuclear Medicine Technologist Relationship Specialty Start Date End Date Kimberley Cunningham FNP 230 [place] [address] PCP - General Family Medicine 07/23/22 03/20/24 documented as of this encounter
[2025-09-11 10:00] LABS: Hematocrit 35.7 % (37.0-47.0); Hemoglobin 11.4 g/dl (12.0-16.0); Imm Gran Abs Auto 0.05 X10*3/uL (0.00-0.03); Imm Gran Pct Auto 0.5 % (0.0-0.4); Lymphocytes Absolute Auto 1.6 X10*3/uL (1.2-4.9); Mean Corpuscular HGB Conc 31.9 g/dl (31.0-35.0); Mean Corpuscular Hemoglobin 26.1 pg (27.0-33.0); Mean Corpuscular Volume 81.7 fL (80.0-98.0); NRBC Abs Auto 0.000 X10*3/uL (0.0-0.012); NRBC Pct Auto 0.0 /100WBC (0.0-0.2); Platelet Count 504 X10*3/uL (160-400); Red Blood Count 4.37 X10*6/uL (4.20-5.50); White Blood Count 10.3 X10*3/uL (4.8-10.8)
[2025-09-11 12:30] LABS: Alanine Aminotransferase 15 U/L (0-31); Albumin Level 3.9 g/dL (3.5-5.0); Alkaline Phosphatase 74 U/L (39-117); Anion Gap 13 (12-20); Aspartate Amino Transferase 23 U/L (5-31); Blood Urea Nitrogen 15 mg/dL (9-16); Calcium 9.6 mg/dL (8.4-10.2); Carbon Dioxide 26 mmol/L (22-29); Chloride 103 mmol/L (96-108); Estimated Glomerular Filt Rate > 60; Potassium 4.1 mmol/L (3.3-5.1); Sodium 138 mmol/L (135-145); Total Protein 8.8 g/dL (6.5-8.0)
== END 2025-09-11 09:01 | disposition home or self-care (01) ==
LOC: HO.LAB 09:00
PROVIDERS: Family Medicine; PCP Internal Medicine; Visit Provider Internal Medicine
DX: Z00.00 Encounter for general adult medical examination without abnormal findings (principal); R10.9 Unspecified abdominal pain
CPT/HCPCS: 36415; 80053; 85025

== ENCOUNTER 2025-09-17 10:24 | Outpatient (REF) | payer OTHER, SELFPAY ==
--- OUTSIDE RECORDS SUMMARY | 2025-09-18 17:46 | XMS_ITS | Encounter Summary ---
Author Organization [employer] Address [address] 7t [place] [address] Care Team Providers Care Nut Former Name Role Phone Unavailable Primary Care Provider Unavailabl e Reason for Visit * Reason Comments Med Refill Encounter Details Date Type Department Care Team (Late st Contact Info) Description 01/16/2025 Refill [facility] MEDICINE [address] [place] [address] Kimberley Cunningham FNP [address] [place] [address] Type 2 diabetes mellitus with hyperglycemia (CMS/HCC) [...]
--- OUTSIDE RECORDS SUMMARY | 2025-09-18 17:46 | XMS_ITS | Clinical Summary ---
Author Organization [facility] Address [address] [facility] [address] [place] [address] Phone Care Team Providers Care Recreation Coordinator Name Role Phone Pcp, Unknown Unavailable Unavailable Conor Garcia MD Primary Care Provider [phone] Allergies Active Allergy Reactions Criticality Noted Date [...] Active ferrous sulfate 325 mg (65 mg assiniboine and gros ventre tribes iron) tablet Take 325 mg by mouth. [...] unspecified vessel or lesion type, unspecified whether [place] or transplanted heart from Last 3 Months or Most Recently Relevant to Health Maintenance Results * (ABNORMAL) Lipid panel (12/18/2024 11:58 AM EST) HDL 43 mg/dL [facility] Comment: Interpretation <40 mg/dL: Low HDL cholesterol (major risk factor for CHD) Greater than or equal to 60 mg/dL: High HDL cholesterol ( negative risk factor for CHD) HDL - cholesterol is affected by a number of factors, e.g. smoking, excerise, hormones, sex and age. CHOLESTEROL 182 0 - 240 mg/dL [facility] TRIGLYCERIDES 185(H) 30 - 160 mg/dL [facility] LDL 102 50 - 129 mg/dL [facility] Comment: LDL levels in terms of risk for coronary heart disease: <100 mg/dL: Optimal 100-129 mg/dL: Near or above optimal 130-159 mg/dL: Borderline high 160-189 mg/dL: High >190 mg/dL: Very High CARDIAC RISK RATIO 4.2 3.3 - 4.4 C [facility] Blood 12/18/2024 11:5 8 AM EST 12/18/2024 12:09 PM EST Carl Rosa MD LAB BLOOD ORDERABLES Final Re sult [facility] [address] [place] [address] from Last 3 Months or Most Recently Relevant to Health Maintenance Insurance [place] [address] [address] [place] [address] ACO [facility] ACO [facility] ACO [facility] [place] [address] ACO Care Teams Recreation Coordinator Relationship Specialty Start Date End Date Conor Garcia MD [address] [place] [address] PCP - General Internal Medicine 12/16/24 Pcp, Unknown 04/09/19 Additional Source Comments The information contained in this document represents components of the legal health record. It is not the complete legal health record.[facility]
--- OUTSIDE RECORDS SUMMARY | 2025-09-18 17:46 | XMS_ITS | Clinical Summary ---
Author Organization [facility] Address [address] [place] [address] Care Team Providers Care Head Of Mathematics Name Role Phone Zaria Milan MD Primary Care Provider [phone] Social History Tobacco Use Types Packs/Day Years [...] patient's age to complete this topic Insurance [facility] Medicaid Care Teams Head Of Mathematics Relationship Specialty Start Date End Date aZria Milan MD [address] [place], [place] PCP - General Internal Medicine 02/16/25
--- OUTSIDE RECORDS SUMMARY | 2025-09-18 17:46 | XMS_ITS | Encounter Summary ---
Author Organization [employer] Address [address] 7t [place] [address] Care Team Providers Care Claim Trainee Name Role Phone Unavailable Primary Care Provider Unavailabl e Reason for Visit * Reason Comments Med Refill Encounter Details Date Type Department Care Team ([facility] st Contact Info) Description 08/12/2024 Refill [facility] MEDICINE [address] [place] [address] Kimberley Cunningham FNP [address] [place] [address] Vitamin D insufficiency Social History Tobacco Use [...] the past 12 months, has t he [employer], gas, oil or water company threatened to [...]
--- OUTSIDE RECORDS SUMMARY | 2025-09-18 17:46 | XMS_ITS | Encounter Summary ---
Author Organization [employer] Address [address] 7t [place] [address] Care Team Providers Care Genetic Engineer Name Role Phone Unavailable Primary Care Provider Unavailabl e Reason for Visit * Reason Comments Med Refill Encounter Details Date Type Department Care Team ([facility] st Contact Info) Description 05/21/2024 Refill [facility] MEDICINE [address] [place] [address] Kimberley Cunningham FNP [address] [place] [address] Primary hypertension Social History Tobacco Use Types [...] t he electric, gas, oil or water [employer] threatened to shut off services in your [...]
--- OUTSIDE RECORDS SUMMARY | 2025-09-18 17:46 | XMS_ITS | Clinical Summary ---
Author Organization [employer] Address [address] [facility] 7t [place] [address] Care Team Providers Care Gas Plant Operator Name Role Phone Unavailable Primary Care [...] -Pt in the process of re-establishing with [facility] Endo -Per last available consult [...] current use of insulin ([facility]) MAMMOGRAM GENERIC Routine 10/05/2022 10: [...] Legacy Procedure: Mammography Report 1 Kimberley Cunningham CREDIT RATING INSPECTOR IMG BI PROCEDURES Final Result * LIPID [...] LDL-C. Jesús SS et al. KORTNEY. 2013;310(19): 3879-4456 (http://education.convoy therapeutics.com/faq/CUM914) Non-HDL Cholesterol 87 <130 mg/dL (calc) [facility] Comment: For patients with diabetes plus 1 major ASCVD risk factor, treating to a non-HDL-C goal of <100 mg/dL (LDL-C of <70 mg/dL) is considered a therapeutic option. Triglycerides 91 <150 mg/dL [facility] 10/04/2022 8:50 AM EST Kimberley Cunningham CREDIT RATING INSPECTOR LAB BLOOD ORDERABLES Final Res ult [facility] * MICROALBUMIN, RANDOM (07/13/2021 10:40 AM EDT) Creatinine Urine 30.03 mg/dL [facility] Microalbum/Creati nine Ratio Ur TNP ug/mg cr [facility] Comment: Unable to calculate albumin/creatinine ratio due to low microalbumin or creatinine result. Microalbumin Urine <5.0 mg/L [facility] 07/13/2021 10:4 0 AM EDT Historical Provider HISTORICAL/NON ORDERABLE LABS Final Result Performing Organization Address City/[facility]/ZIP Co de Phone Number [facility] [address] * Pap Smear (03/14/2019) Pap Negative [...] Most Recently Relevant to Health Maintenance Insurance [facility] STAND ADULT
--- OUTSIDE RECORDS SUMMARY | 2025-09-18 17:46 | XMS_ITS | Encounter Summary ---
Author Organization [employer] Address [address] 7t [place] [address] Care Team Providers Care Powder Hand Name Role Phone Unavailable Primary Care Provider Unavailabl e Reason for Visit * Reason Comments Med Refill Encounter Details Date Type Department Care Team ([facility] st Contact Info) Description 05/20/2024 Refill [facility] MEDICINE 230 [place] [address] Kimberley Cunningham FNP [address] [place] [address] Primary hypertension Social History Tobacco Use Types [...] t he electric, gas, oil or water [employer] threatened to shut off services in your [...]
--- OUTSIDE RECORDS SUMMARY | 2025-09-18 17:47 | XMS_ITS | Encounter Summary ---
Author Organization [facility] Address [address] [facility] 7t [place] [address] Care Team Providers Care Supplemental Manager Name Role Phone Kimberley Cunningham Primary Care Provider [phone] Encounter Details Date Type Department Care Team (Latest Contact Info) Description 01/07/2020 Abstract [facility] CONVERSIONS Dental, Provider, DDS Social [...] on filedocumented in this encounter Care Teams Supplemental Manager Relationship Specialty Start Date End Date Kimberley Cunningham FNP [address] [place] [address] PCP - General Family Medicine 07/23/22 03/20/24 documented as of this encounter
--- OUTSIDE RECORDS SUMMARY | 2025-09-18 17:47 | XMS_ITS | Encounter Summary ---
Author Organization [employer] Address [address] [facility] 7t [place] [address] Care Team Providers Care Welder/Fitter Name Role Phone Kimberley Cunningham Primary Care Provider [phone] Reason for Visit * Reason Comments Med Refill Encounter Details Date Type Department Care Team ([facility] st Contact Info) Description 07/26/2023 Refill [facility] MEDICINE 230 [place] [address] Kimberley Cunningham FNP 505 [place] [address] Depressive disorder Social History Tobacco Use Types [...] documented as of this encounter Care Teams Welder/Fitter Relationship Specialty Start Date End Date Kimberley Cunningham FNP 230 [place] [address] PCP - General Family Medicine 07/23/22 03/20/24 documented as of this encounter
--- OUTSIDE RECORDS SUMMARY | 2025-09-18 17:47 | XMS_ITS | Encounter Summary ---
Author Organization [employer] Address [address] [facility] 7t [place] [address] Care Team Providers Care Workday Consultant Name Role Phone Kimberley Cunningham DIE TURNER Primary Care Provider [phone] Reason for Visit * Reason Comments Med Refill Encounter Details Date Type Department Care Team ([facility] st Contact Info) Description 09/08/2023 Refill [facility] MEDICINE 230 [place], [place] [phone] Jojo Washburn MD [address] [place], [place] [phone] Depressive disorder Social History Tobacco Use Types [...] documented as of this encounter Care Teams Workday Consultant Relationship Specialty Start Date End Date Kimberley Cunningham FNP [address] [place] [address] PCP - General Family Medicine 07/23/22 03/20/24 documented as of this encounter
--- OUTSIDE RECORDS SUMMARY | 2025-09-18 17:47 | XMS_ITS | Encounter Summary ---
Author Organization [employer] Address [address] [facility] 7t [place] [address] Care Team Providers Care Charge Master Analyst Name Role Phone Unavailable Primary Care Provider Unavailabl e Reason for Visit * Reason Comments Med Refill Encounter Details Date Type Department Care Team ([facility] st Contact Info) Description 10/13/2024 Refill [facility] MED & PEDS 505 [place], [place] [phone] Kimberley Cunningham, EILEEN 505 [place] [address] Type 2 diabetes mellitus without complication, with long-term current use of insulin ([facility]) Social History Tobacco Use Types [...]
--- OUTSIDE RECORDS SUMMARY | 2025-09-18 17:47 | XMS_ITS | Encounter Summary ---
Author Organization [employer] [facility] Address [address] [facility] 7t [place] [address] Care Team Providers Care Scientist/Engineer Name Role Phone Kimberley Cunningham Primary Care Provider [phone] Encounter Details Date Type Department Care Team [...] on filedocumented in this encounter Care Teams Scientist/Engineer Relationship Specialty Start Date End Date Kimberley Cunningham FNP [address] [place] [address] PCP - General Family Medicine 07/23/22 03/20/24 documented as of this encounter
--- OUTSIDE RECORDS SUMMARY | 2025-09-18 17:47 | XMS_ITS | Encounter Summary ---
Author Organization [employer] Address [address] 7t [place] [address] Care Team Providers Care Lecturer Of Portuguese Name Role Phone Unavailable Primary Care Provider Unavailabl e Reason for Visit * Reason Comments Med Refill Encounter Details Date Type Department Care Team ([facility] st Contact Info) Description 06/17/2024 Refill [facility] MEDICINE 230 [place] [address] Kimberley Cunningham FNP [address] [place] [address] Other hyperlipidemia; Type 2 diabetes mellitus with [...]
--- OUTSIDE RECORDS SUMMARY | 2025-09-18 17:47 | XMS_ITS | Encounter Summary ---
Author Organization [employer] Address [address] [facility] 7t [place] [address] Care Team Providers Care Accounts Payable Supervisor Name Role Phone Unavailable Primary Care Provider Unavailabl e Reason for Visit * Reason Comments Med Refill Encounter Details Date Type Department Care Team ([facility] st Contact Info) Description 09/10/2024 Refill [facility] CHC MED & PEDS [address] [place] [address] Kimberley Cunningham, EILEEN [address] [place] [address] Depressive disorder Social History Tobacco Use Types [...] t he electric, gas, oil or water [employer] threatened to shut off services in your [...]
--- OUTSIDE RECORDS SUMMARY | 2025-09-18 17:47 | XMS_ITS | Encounter Summary ---
Author Organization [facility] Address [address] [facility] [address] [place] [address] Phone Care Team Providers Care Office Copy Selector Name Role Phone Unknown, Unknown Primary Care Provider Qamar byrd Pcp, Unknown Unavailable Unavailable Conor Garcia MD Primary Care Provider [phone] Encounter Details Date Type Department Care Team (Latest Contact Info) Description 04/10/2019 Ancillary Orders [facility] [address] [place] [address] [place] [address] Anson Falcon, DO [address] [place] [address] Palpitations; Other chest pain Social History Tobacco [...] pain documented in this encounter Care Teams Office Copy Selector Relationship Specialty Start Date End Date Unknown, Unknown, MD PCP - General 04/09/19 12/15/24 Po, Conor Carcamo MD [address] [place] [address] Drive [address] [place] [address] PCP - General Internal Medicine 12/16/24 Pcp, Unknown 04/09/19 documented as of this encounter Additional Source Comments The information contained in this document represents components of the legal health record. It is not the complete legal health record.[facility]
--- OUTSIDE RECORDS SUMMARY | 2025-09-18 17:47 | XMS_ITS | Encounter Summary ---
Author Organization [employer] Address [address] 7[address] [place] [address] Care Team Providers Care Remnant Sorter Name Role Phone Unavailable Primary Care Provider Unavailabl e Reason for Visit * Reason Comments Med Refill Encounter Details Date Type Department Care Team (Late st Contact Info) Description 01/12/2025 Refill [facility] MEDICINE [address] [place] [address] Kimberley Cunningham FNP [address] [place] [address] Type 2 diabetes mellitus with hyperglycemia (CMS/HCC) [...]
--- OUTSIDE RECORDS SUMMARY | 2025-09-18 17:47 | XMS_ITS | Encounter Summary ---
Author Organization [employer] Address [address] [facility] 7t [place] [address] Care Team Providers Care Barrel Bander Name Role Phone Kimberley Cunningham ARCH SUPPORT TECHNICIAN Primary Care Provider [phone] Encounter Details Date Type Department Care Team ([facility] st Contact Info) Description 10/12/2023 Abstract [facility] MED[facility]INE [address] [place], [place] [id number] Sandra Villareal Social History Tobacco Use Types [...] documented as of this encounter Care Teams Barrel Bander Relationship Specialty Start Date End Date Kimberley Cunningham FNP [address] [place] [id number] PCP - General Family Medicine 07/23/22 03/20/24 documented as of this encounter
--- OUTSIDE RECORDS SUMMARY | 2025-09-18 17:47 | XMS_ITS | Encounter Summary ---
Author Organization [employer] Address [address] [facility] 7t [place] [address] Care Team Providers Care Oral And Maxillofacial Surgery Resident Name Role Phone Unavailable Primary Care Provider Unavailabl e Reason for Visit * Reason Comments Med Refill Encounter Details Date Type Department Care Team ([facility] st Contact Info) Description 08/15/2024 Refill [facility] CHC MED & PEDS [address] [place] [address] Kimberley Cunningham, FIELD COIL WINDER [address] [place] [address] Hypothyroidism, unspecified type Social History Tobacco Use [...]
--- OUTSIDE RECORDS SUMMARY | 2025-09-18 17:47 | XMS_ITS | Encounter Summary ---
Author Organization [employer] Address [address] 7[address] [place] [address] Care Team Providers Care Consumer Insight Manager Name Role Phone Unavailable Primary Care Provider Unavailabl e Reason for Visit * Reason Comments Med Refill Encounter Details Date Type Department Care Team ([facility] st Contact Info) Description 11/13/2024 Refill [facility] MEDICINE [address] [place] [address] Kimberley Cunningham FNP [address] [place] [address] Type 2 diabetes mellitus without complication, with long-term current use of insulin ([facility]) Social History Tobacco Use Types [...]
--- OUTSIDE RECORDS SUMMARY | 2025-09-18 17:47 | XMS_ITS | Encounter Summary ---
Author Organization [facility] Address [address] [facility] [address] [place] [address] Phone Care Team Providers Care Sports Internship Name Role Phone Unknown, Unknown Primary Care Provider Qamar byrd Pcp, Unknown Unavailable Unavailable Conor Garcia MD Primary Care Provider [phone] Encounter Details Date Type Department Care Team (Latest Contact Info) Description 04/17/2019 Ancillary Orders [facility] [address] [place] [address] Anson Falcon, DO [address] [place] [address] Chest pain, unspecified type; Palpitations Social History [...] Palpitations documented in this encounter Care Teams Sports Internship Relationship Specialty Start Date End Date Unknown, Unknown, PCP - General 04/09/19 12/15/24 Conor Garcia MD [address] [place] [address] PCP - General Internal Medicine 12/16/24 Pcp, Unknown 04/09/19 documented as of this encounter Additional Source Comments The information contained in this document represents components of the legal health record. It is not the complete legal health record.[facility]
[2025-09-19 03:53] LABS: CT PCR NOT DETECTED (Not Detect.); NG PCR NOT DETECTED (Not Detect.)
[2025-09-19 05:02] LABS: Bacterial Vaginosis PCR NEGATIVE (Negative); Candida Group PCR NOT DETECTED (Not Detect); Candida glab krusei PCR NOT DETECTED (Not Detect); Trichomonas vaginalis PCR NOT DETECTED (Not Detect)
== END 2025-09-17 10:25 | disposition home or self-care (01) ==
LOC: HO.LNP 10:24
PROVIDERS: PCP Internal Medicine; Visit Provider Advanced Practice Midwife
DX: Z01.419 Encounter for gynecological examination (general) (routine) without abnormal findings (principal); E11.65 Type 2 diabetes mellitus with hyperglycemia; B37.31 Acute candidiasis of vulva and vagina; Z79.4 Long term (current) use of insulin; Z79.01 Long term (current) use of anticoagulants; Z79.84 Long term (current) use of oral hypoglycemic drugs
CPT/HCPCS: 81515; 87491; 87591; 99212

== ENCOUNTER 2025-09-17 10:24 | Outpatient (AMB) | payer OTHER, SELFPAY ==
--- NOTE | 2025-09-17 10:25 | MHC.OFFVIS ---
Vital Signs 09/17/25 10:27 Height 5 ft 4 in Weight 141 lb BMI 24.2 Intake Visit Reasons: vaginal irritation Office Professional: Office Professional Present (Wally) Accompanied by: Self / Same As Patient Allergies penicillin V Allergy (Unknown, Verified 09/17/25 10:27) hives Penicillins (PENICILLINS) Allergy (Unknown, Verified 09/17/25 10:27) RASH,DIZZINESS Medication List - Last Reconciled 09/17/25 by Tanisha Hendricks CNM aspirin (Adult Low Dose Aspirin) 81 mg PO DAILY blood glucose control high,low (FreeStyle Control solution) As directed [blood pessure cuff As directed] blood sugar diagnostic (FreeStyle Lite Strips) 3 times a day blood-glucose meter (FreeStyle Lite Meter kit) As directed TID cane As directed cholecalciferol (vitamin D3) 50 mcg PO DAILY dapagliflozin propanediol (Farxiga) 10 mg PO DAILY evolocumab (Repatha Syringe) 140 mg subcut Q2W ferrous sulfate 325 mg PO BID fluoxetine 10 mg PO DAILY insulin glargine (Lantus Solostar U-100 Insulin) 9 units (0.09 mL) subcut DAILY 30 days insulin lispro (Humalog KwikPen (U-100) Insulin) inject according to sliding scale subcutaneously use as directed; < 60 drink juice, 61- 150 no insulin, 151- 230 2 u , 231- 280 4 u, 281-330 6 u , 331-380 8 u and > 380 use 10 u use before lunch isosorbide mononitrate ER 30 mg PO DAILY lancets (FreeStyle Lancets) As directed three times a day lancets (TRUEplus Lancets) As directed check BS TID levothyroxine 150 mcg PO DAILY@0600 losartan 25 mg PO DAILY melatonin 10 mg PO BEDTIME PRN metformin 1,000 mg PO BID metoprolol succinate ER 50 mg PO DAILY pen needle, diabetic (BD Corin 2nd Gen Pen Needle) once a day pen needle, diabetic (BD Ultra-Fine Corin Pen Needle) As directed once daily pen needle, diabetic As directed polyethylene glycol 3350 (Miralax) 17 grams PO DAILY 14 days prednisone 1 mg PO DAILY ticagrelor (Brilinta) 90 mg PO BID Is last menstrual period known: No Post menopausal: Yes Patient : No HPI HPI vaginal irritation: Details: Patient is here to that checked for her vaginal irritation she is a known diabetic . She again wanted to be sure that I knew she was on anticoagulant therapy and she was worried that an exam might cause bleeding. She wanted to know about her last Pap smear which was done in 2023 and which is negative with negative HPV. I last saw her in March for a severe yeast infection and I know we spent a lot of time talking about her various medical concerns and she did not want anything that was not super safe to use she accepted a prescription for Monistat cream at the time and I gave her 5 refills at that time. She says that she has been irritated with this infection for about a month but she forgot completely that I had ordered refills for her and so she had just been waiting for this appointment. Her vulva is very inflamed on the outside there is no breakage to the skin and no evidence of any other superimposed bacterial infection vagina is post menopausal with thin skin which is very pink and inflamed secondary to the yeast. Tiny Apple speculum used to obtain testing for gonorrhea chlamydia trichomoniasis bacterial vaginosis and yeast the only finding I expect is yeast there were no yeast curds. Her underwear appears to be made of 100% polyester though the label is faded. She has an appointment with Dr. Thompson coming up within the week she says she has good translation for that visit I asked her to let him know that she has been getting these repeat infections because it is all connected with her diabetes and she is also aware that the prednisone raises her blood sugar as well she is also on metformin insulin and Farxiga. I highly recommend she avoid any soap use only cool water for rinsing her vagina and she prefers the Monistat cream and I am again giving her Monistat 7 cream to use inside and outside with 5 refills that she may use as she sees fit in his she needs to given her recurrent yeast discussed that if she ever has a different kind of infection symptom she should definitely check that out with Dr. thompson as sometimes there were other infections that can occur with diabetes and also with many of the medications for diabetes. [facility] Medical History Dermatomyositis Elevated CK CAD (coronary artery disease) STEMI (ST elevation myocardial infarction) GERD (gastroesophageal reflux disease) Physical exam, pre-employment Sebaceous cyst RUQ pain Cervical polyp Muscle strain of right scapular region H. pylori infection Overweight (BMI 25.0-29.9) Hypertension Hypothyroidism intermediate (current) use of insulin Diabetes type 2, uncontrolled Surgical History Hx of knee surgery History of coronary artery stent placement Hx of tubal ligation Hx of cholecystectomy Family History Unknown No problems noted. 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 Results Reviewed Results Reviewed: Name: Denise Cramer Age/Sex: 63/F Attending: Daniela Gutiérrez CNM : 1960 Submitted by: Daniela Gutiérrez CNM Copies to: Conor Garcia MD MR #: [id number] Status: DEP REF Collected: 04/22/24 Location: .LAB Received: 04/23/24 Interpretation Satisfactory for evaluation. Negative for intraepithelial lesion or malignancy. Moderate inflammation. HPV mRNA E6/E7: NOT DETECTED This assay detects E6/E7 viral messenger RNA (mRNA) from 14 high-risk HPV types (16, 18, 31, 33, 35, 39, 45, 51, 52, 56, 58, 59, 66, 68) HPV testing performed by [facility], [place], [place]. See reference laboratory portion of the EMR for entire report. Clinical Information LMP: Postmenopausal Previous PAP test: Unknown date, Unknown findings Material Received ThinPrep-Cervical Copies To Daniela Gutiérrez[address] [place] [address] Conor Garcia [address] [place] [address] Electronically Signed By: Meena Rendon 05/12/24 2641 The Pap Test is a screening procedure with the inherent possibility of both false negative and false positive results. Results should be interpreted in the context of historic and current clinical findings. Reliability of the Pap Test is enhanced by performing the test on a regular repetitive basis. 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: Code(s): Z79.4 - intermediate (current) use of insulin Category: Medical (2) Type 2 diabetes mellitus with hyperglycemia: Comment: [facility] Code(s): E11.65 - Type 2 diabetes mellitus with hyperglycemia Category: Medical Qualifiers: Diabetes mellitus mcc insulin use: with mcc use Qualified Code(s): E11.65 - Type 2 diabetes mellitus with hyperglycemia; Z79.4 - intermediate (current) use of insulin (3) Hx of manager long term care use of blood thinners: Comment: ACTUALLY-- patient says she recently started them, after the cardiac interventions and will be on them for year Code(s): Z79.01 - moth exterminator (current) use of anticoagulants Category: Medical (4) Yeast infection of the vagina: Comment: patient is aware that the prednisone she is on is increasing her blood sugars(diabetic). And she recently finished a course of antibiotics which she knows puts her at risk of yeast.; patient being re-treated see notes for details she forgot that I had ordered 5 refills on her Monistat. Reordered today with teaching. Code(s): B37.31 - Acute candidiasis of vulva and vagina Category: Medical Plan Patient is here to that checked for her vaginal irritation she is a known diabetic . She again wanted to be sure that I knew she was on anticoagulant therapy and she was worried that an exam might cause bleeding. She wanted to know about her last Pap smear which was done in 2023 and which is negative with negative HPV. I last saw her in March for a severe yeast infection and I know we spent a lot of time talking about her various medical concerns and she did not want anything that was not super safe to use she accepted a prescription for Monistat cream at the time and I gave her 5 refills at that time. She says that she has been irritated with this infection for about a month but she forgot completely that I had ordered refills for her and so she had just been waiting for this appointment. Her vulva is very inflamed on the outside there is no breakage to the skin and no evidence of any other superimposed bacterial infection vagina is post menopausal with thin skin which is very pink and inflamed secondary to the yeast. Tiny Apple speculum used to obtain testing for gonorrhea chlamydia trichomoniasis bacterial vaginosis and yeast the only finding I expect is yeast there were no yeast curds. Her underwear appears to be made of 100% polyester though the label is faded. I recommend 100% cotton underwear. (algodon) She has an appointment with Dr. Thompson coming up within the week she says she has good translation for that visit I asked her to let him know that she has been getting these repeat infections because it is all connected with her diabetes and she is also aware that the prednisone raises her blood sugar as well she is also on metformin insulin and Farxiga. I highly recommend she avoid any soap use only cool water for rinsing her vagina and she prefers the Monistat cream and I am again giving her Monistat 7 cream to use inside and outside with 5 refills that she may use as she sees fit in his she needs to given her recurrent yeast discussed that if she ever has a different kind of infection symptom she should definitely check that out with Dr. Garcia as sometimes there were other infections that can occur with diabetes and also with many of the medications for diabetes. I wrote down Monistat 7 cream, aqua, and [place] -with explanations. Medications: New miconazole nitrate 2% (Miconazole-7) Use when needed for recurrent yeast infections inside and outside. 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
[2025-09-17 10:27] VITALS: BMI 24.2
--- OUTSIDE RECORDS SUMMARY | 2025-09-17 12:27 | XMS_ITS | Encounter Summary ---
Author Organization [employer] Address [address] [facility] 7t [place] [address] Care Team Providers Care Mechanical Engineering Intern Name Role Phone Unavailable Primary Care Provider Unavailabl e Reason for Visit * Reason Comments Med Refill Encounter Details Date Type Department Care Team (Late st Contact Info) Description 01/16/2025 Refill [facility] MEDICINE 230 [place] [address] Kimberley Cunningham FNP [address] [place] [address] Type 2 diabetes mellitus with hyperglycemia (CMS/HCC) [...]
--- OUTSIDE RECORDS SUMMARY | 2025-09-17 12:27 | XMS_ITS | Clinical Summary ---
Author Organization [employer] Address [address] [facility] 7t [place] [address] Care Team Providers Care Gang Supervisor Name Role Phone Unavailable Primary Care [...] -Pt in the process of re-establishing with [facility] -Per last available [...] complication, with long-term current use of insulin ([facility]) MAMMOGRAM GENERIC Routine 10/05/2022 10: [...] Legacy Procedure: Mammography Report 1 Kimberley Cunningham WOODEN BOAT BUILDER IMG BI PROCEDURES Final Result * LIPID [...] LDL-C. Jesús SS et al. KORTNEY. 2013;310(19): 0031-4925 (http://education.RUN.com/faq/KEI340) Non-HDL Cholesterol 87 <130 mg/dL (calc) [facility] Comment: For patients with diabetes plus 1 major ASCVD risk factor, treating to a non-HDL-C goal of <100 mg/dL (LDL-C of <70 mg/dL) is considered a therapeutic option. Triglycerides 91 <150 mg/dL [facility] 10/04/2022 8:50 AM EST Kimberley Cunningham WOODEN BOAT BUILDER LAB BLOOD ORDERABLES Final Res ult [facility] * MICROALBUMIN, RANDOM (07/13/2021 10:40 AM EDT) Creatinine Urine 30.03 mg/dL [facility] Microalbum/Creati nine Ratio Ur TNP ug/mg cr [facility] Comment: Unable to calculate albumin/creatinine ratio due to low microalbumin or creatinine result. Microalbumin Urine <5.0 mg/L [facility] 07/13/2021 10:4 0 AM EDT Historical Provider HISTORICAL/NON ORDERABLE LABS Final Result Performing Organization Address City/[facility]/ZIP Co de Phone Number [facility] [address] * Pap Smear (03/14/2019) Pap [...] Most Recently Relevant to Health Maintenance Insurance [facility] [place] ST[place] AD[place]
--- OUTSIDE RECORDS SUMMARY | 2025-09-17 12:27 | XMS_ITS | Encounter Summary ---
Author Organization [employer] Address [address] [facility] [address] 7t [place] [address] Care Team Providers Care Black Top Machine Operator Name Role Phone Unavailable Primary Care Provider Unavailabl e Reason for Visit * Reason Comments Med Refill Encounter Details Date Type Department Care Team ([facility] st Contact Info) Description 05/21/[address] [facility] MEDICINE [address] [place] [address] Kimberley Cunningham FNP [address] [place] [address] Primary hypertension Social History Tobacco Use Types [...] t he electric, gas, oil or water [employer] threatened to shut off services in your [...]
--- OUTSIDE RECORDS SUMMARY | 2025-09-17 12:27 | XMS_ITS | Clinical Summary ---
Author Organization [facility] Address [address] [place] [address] Care Team Providers Care Waist Fitter Name Role Phone Zaria Milan MD Primary Care Provider [phone] Social History Tobacco Use Types Packs/Day Years [...] patient's age to complete this topic Insurance [facility] Medicaid Care Teams Waist Fitter Relationship Specialty Start Date End Date Zaria Milan MD [address] [place], [place] PCP - General Internal Medicine 02/16/25
--- OUTSIDE RECORDS SUMMARY | 2025-09-17 12:28 | XMS_ITS | Encounter Summary ---
Author Organization [employer] Address [address] [facility] 7t [place] [address] Care Team Providers Care V Block Saw Operator Name Role Phone Kimberley Cunningham FIBERGLASS TECHNICIAN Primary Care Provider [phone] Encounter Details Date Type Department Care Team ([facility] st Contact Info) Description 10/12/2023 Abstract [facility] MEDICINE [address] [place], [place] [phone] Sandra Villareal Social History Tobacco Use Types [...] documented as of this encounter Care Teams V Block Saw Operator Relationship Specialty Start Date End Date Kimberley Cunningham FNP [address] [place] [address] PCP - General Family Medicine 07/23/22 03/20/24 documented as of this encounter
--- OUTSIDE RECORDS SUMMARY | 2025-09-17 12:28 | XMS_ITS | Encounter Summary ---
Author Organization [employer] Address [address] [facility] [address] 7[address] [place] [address] Care Team Providers Care Batch Roller Operator Name Role Phone Unavailable Primary Care Provider Unavailabl e Reason for Visit * Reason Comments Med Refill Encounter Details Date Type Department Care Team (Late st Contact Info) Description 01/12/2025 Refill [facility] MED[facility]INE [address] [place] [address] Kimberley Cunningham FNP [address] [place] [address] Type 2 diabetes mellitus with hyperglycemia (CMS/HCC) [...]
--- OUTSIDE RECORDS SUMMARY | 2025-09-17 12:28 | XMS_ITS | Encounter Summary ---
Author Organization [employer] Address [address] [facility] [address] 7t [place] [address] Care Team Providers Care Field Case Manager Name Role Phone Unavailable Primary Care Provider Unavailabl e Reason for Visit * Reason Comments Med Refill Encounter Details Date Type Department Care Team ([facility] st Contact Info) Description 08/12/2024 Refill [facility] MEDICINE [address] [place] [address] Kimberley Cunningham FNP [address] [place] [address] Vitamin D insufficiency Social History Tobacco Use [...] the past 12 months, has t he [employer], gas, oil or water company threatened to [...]
--- OUTSIDE RECORDS SUMMARY | 2025-09-17 12:28 | XMS_ITS | Encounter Summary ---
Author Organization [employer] Address [address] [facility] [address] 7t [place] [address] Care Team Providers Care Engineer Automated Equipment Name Role Phone Unavailable Primary Care Provider Unavailabl e Reason for Visit * Reason Comments Med Refill Encounter Details Date Type Department Care Team ([facility] st Contact Info) Description 06/17/2024 Refill [facility] MEDICINE [address] [place] [address] Kimberley Cunningham FNP [address] [place] [address] Other hyperlipidemia; Type 2 diabetes mellitus with [...]
--- OUTSIDE RECORDS SUMMARY | 2025-09-17 12:28 | XMS_ITS | Encounter Summary ---
Author Organization [employer] Address [address] [facility] 7t [place] [address] Care Team Providers Care Chlorine Cells Operator Name Role Phone Kimberley Cunningham FRONT MAKER LOCKSTITCH Primary Care Provider [phone] Reason for Visit * Reason Comments Med Refill Encounter Details Date Type Department Care Team ([facility] st Contact Info) Description 09/08/2023 Refill [facility] MEDICINE 230 [place], [place] [phone] Jojo Washburn MD 230 [place], [place] [phone] Depressive disorder Social History Tobacco Use Types [...] documented as of this encounter Care Teams Chlorine Cells Operator Relationship Specialty Start Date End Date Kimberley Cunningham FNP [address] [place] [address] PCP - General Family Medicine 07/23/22 03/20/24 documented as of this encounter
--- OUTSIDE RECORDS SUMMARY | 2025-09-17 12:28 | XMS_ITS | Encounter Summary ---
Author Organization [facility] Address [address] [place] [address] Phone Care Team Providers Care City Tax Auditor Name Role Phone Unknown, Unknown Primary Care Provider Qamar byrd Pcp, Unknown Unavailable Unavailable Conor Garcia MD Primary Care Provider [phone] Encounter Details Date Type Department Care Team (Latest Contact Info) Description 04/10/2019 Ancillary Orders [facility] [address] [place] [address] [place] [address] Anson Falcon, DO [address] [place] [address] Palpitations; Other chest pain Social History Tobacco [...] pain documented in this encounter Care Teams City Tax Auditor Relationship Specialty Start Date End Date Unknown, Unknown, MD PCP - General 04/09/19 12/15/24 Po, Conor Carcamo MD [address] [place] [address] Drive [address] [place] [address] PCP - General Internal Medicine 12/16/24 Pcp, Unknown 04/09/19 documented as of this encounter Additional Source Comments The information contained in this document represents components of the legal health record. It is not the complete legal health record.[facility]
--- OUTSIDE RECORDS SUMMARY | 2025-09-17 12:28 | XMS_ITS | Clinical Summary ---
Author Organization [facility] Address [address] [facility] [address] [place] [address] Phone Care Team Providers Care Database Administration Manager Name Role Phone Pcp, Unknown Unavailable Unavailable Conor Garcia MD Primary Care Provider [phone] Allergies Active Allergy Reactions Criticality Noted Date [...] Active ferrous sulfate 325 mg (65 mg grayling iron) tablet Take 325 mg by mouth. [...] unspecified vessel or lesion type, unspecified whether [place] or transplanted heart from Last 3 Months or Most Recently Relevant to Health Maintenance Results * (ABNORMAL) Lipid panel (12/18/2024 11:58 AM EST) HDL 43 mg/dL [facility] Comment: Interpretation <40 mg/dL: Low HDL cholesterol (major risk factor for CHD) Greater than or equal to 60 mg/dL: High HDL cholesterol ( negative risk factor for CHD) HDL - cholesterol is affected by a number of factors, e.g. smoking, excerise, hormones, sex and age. CHOLESTEROL 182 0 - 240 mg/dL [facility] TRIGLYCERIDES 185(H) 30 - 160 mg/dL [facility] LDL 102 50 - 129 mg/dL [facility] Comment: LDL levels in terms of risk for coronary heart disease: <100 mg/dL: Optimal 100-129 mg/dL: Near or above optimal 130-159 mg/dL: Borderline high 160-189 mg/dL: High >190 mg/dL: Very High CARDIAC RISK RATIO 4.2 3.3 - 4.4 C [facility] Blood 12/18/2024 11:5 8 AM EST 12/18/2024 12:09 PM EST Carl Rosa MD LAB BLOOD ORDERABLES Final Re sult [facility] [address] [place] [address] from Last 3 Months or Most Recently Relevant to Health Maintenance [place] [address] [place] [address] ACO [facility] ACO [facility] ACO Member Subscriber Plan / Payer (Replaced by [facility] [employer] 08/09/2023-Present) Name:Denise Pearson I Relation to Subscriber:Self Name:Denise Pearson I Payer ID:[id number] Group ID:[id number] Type:Medicaid Address: [address] [place] [address] [facility] [place] [address] [place] [address] ACO Care Teams Database Administration Manager Relationship Specialty Start Date End Date Conor Garcia MD [address] [place] [address] PCP - General Internal Medicine 12/16/24 Pcp, Unknown 04/09/19 Additional Source Comments The information contained in this document represents components of the legal health record. It is not the complete legal health record.[facility]
--- OUTSIDE RECORDS SUMMARY | 2025-09-17 12:28 | XMS_ITS | Encounter Summary ---
Author Organization [employer] Address [address] [facility] 7t [place] [address] Care Team Providers Care Seismograph Observer Name Role Phone Kimberley Cunningham Primary Care Provider [phone] Reason for Visit * Reason Comments Med Refill Encounter Details Date Type Department Care Team ([facility] st Contact Info) Description 07/26/2023 Refill [facility] MEDICINE [address] [place] [address] Kimberley Cunningham FNP [address] [place] [address] Depressive disorder Social History Tobacco Use Types [...] documented as of this encounter Care Teams Seismograph Observer Relationship Specialty Start Date End Date Kimberley Cunningham FNP [address] [place] [address] PCP - General Family Medicine 07/23/22 03/20/24 documented as of this encounter
--- OUTSIDE RECORDS SUMMARY | 2025-09-17 12:28 | XMS_ITS | Encounter Summary ---
Author Organization [facility] Address [address] [facility] 7t [place] [address] Care Team Providers Care Forming Process Line Worker Name Role Phone Kimberley Cunningham Primary Care Provider [phone] Encounter Details Date Type Department Care Team (Latest Contact Info) Description 01/20/2021 Abstract [facility] CONVERSIONS Dental, Provider, DDS Social History Tobacco [...] on filedocumented in this encounter Care Teams Forming Process Line Worker Relationship Specialty Start Date End Date Kimberley Cunningham FNP [address] [place] [address] PCP - General Family Medicine 07/23/22 03/20/24 documented as of this encounter
--- OUTSIDE RECORDS SUMMARY | 2025-09-17 12:28 | XMS_ITS | Encounter Summary ---
Author Organization [employer] Address [address] 7t [place] [address] Care Team Providers Care English Faculty Member Name Role Phone Unavailable Primary Care Provider Unavailabl e Reason for Visit * Reason Comments Med Refill Encounter Details Date Type Department Care Team ([facility] st Contact Info) Description 11/13/2024 Refill [facility] MEDICINE 230 [place] [address] Kimberley Cunningham FNP [address] [place] [address] Type 2 diabetes mellitus without complication, with long-term current use of insulin ([facility]) Social History Tobacco Use Types Packs/Day Years [...]
--- OUTSIDE RECORDS SUMMARY | 2025-09-17 12:28 | XMS_ITS | Encounter Summary ---
Author Organization [employer] Address [address] [facility] 7t [place] [address] Care Team Providers Care Professional Services Manager Name Role Phone Unavailable Primary Care Provider Unavailabl e Reason for Visit * Reason Comments Med Refill Encounter Details Date Type Department Care Team ([facility] st Contact Info) Description 09/10/2024 Refill [facility] MED & PEDS [address] [place] [address] Kimberley Cunningham, EILEEN [address] [place] [address] Depressive disorder Social History Tobacco Use Types [...] t he electric, gas, oil or water [employer] threatened to shut off services in your [...]
--- OUTSIDE RECORDS SUMMARY | 2025-09-17 12:28 | XMS_ITS | Encounter Summary ---
Author Organization [facility] Address [address] [place] [address] Phone Care Team Providers Care Sausage Tier Name Role Phone Unknown, Unknown Primary Care Provider Qamar byrd Pcp, Unknown Unavailable Unavailable Conor Garcia MD Primary Care Provider [phone] Encounter Details Date Type Department Care Team (Latest Contact Info) Description 04/17/2019 Ancillary Orders [facility] [address] [place] [address] [place] [address] Anson Falcon, DO [address] [place] [address] Chest pain, unspecified type; Palpitations Social History [...] Palpitations documented in this encounter Care Teams Sausage Tier Relationship Specialty Start Date End Date Unknown, Unknown, PCP - General 04/09/19 12/15/24 Conor Garcia MD [address] [place] [address] PCP - General Internal Medicine 12/16/24 Pcp, Unknown 04/09/19 documented as of this encounter Additional Source Comments The information contained in this document represents components of the legal health record. It is not the complete legal health record.[facility]
--- OUTSIDE RECORDS SUMMARY | 2025-09-17 12:28 | XMS_ITS | Encounter Summary ---
Author Organization [employer] Address [address] [facility] 7t [place] [address] Care Team Providers Care Hospice Massage Therapist Name Role Phone Unavailable Primary Care Provider Unavailabl e Reason for Visit * Reason Comments Med Refill Encounter Details Date Type Department Care Team ([facility] st Contact Info) Description 08/15/[address] [facility] MED & PEDS [address] [place] [address] Kimberley Cunningham, METAL PATTERNMAKER APPRENTICE 505 [place] [address] Hypothyroidism, unspecified type Social History Tobacco Use [...]
--- OUTSIDE RECORDS SUMMARY | 2025-09-17 12:28 | XMS_ITS | Encounter Summary ---
Author Organization [facility] Address [address] [facility] [address] [facility] 7t [place] [address] Care Team Providers Care Foreign Policy Officer Name Role Phone Kimberley Cunningham Primary Care Provider [phone] Encounter Details Date Type Department Care Team [...] on filedocumented in this encounter Care Teams Foreign Policy Officer Relationship Specialty Start Date End Date Kimberley Cunningham FNP [address] [place] [address] PCP - General Family Medicine 07/23/22 03/20/24 documented as of this encounter
--- OUTSIDE RECORDS SUMMARY | 2025-09-17 12:28 | XMS_ITS | Encounter Summary ---
Author Organization [employer] Address [address] [facility] 7t [place] [address] Care Team Providers Care Pot Operator Name Role Phone Unavailable Primary Care Provider Unavailabl e Reason for Visit * Reason Comments Med Refill Encounter Details Date Type Department Care Team ([facility] st Contact Info) Description 10/13/2024 Refill [facility] MED & PEDS [address] [place], [place] [phone] Kimberley Cunningham, EILEEN 505 [place] [address] Type 2 diabetes mellitus without complication, with long-term current use of insulin ([facility]) Social History Tobacco [...]
--- OUTSIDE RECORDS SUMMARY | 2025-09-17 12:28 | XMS_ITS | Encounter Summary ---
Author Organization [employer] Address [address] 7t [place] [address] Care Team Providers Care Wire Tinner Name Role Phone Unavailable Primary Care Provider Unavailabl e Reason for Visit * Reason Comments Med Refill Encounter Details Date Type Department Care Team ([facility] st Contact Info) Description 05/20/2024 Refill [facility] MEDICINE [address] [place] [address] Kimberley Cunningham FNP [address] [place] [address] Primary hypertension Social History Tobacco Use Types [...] t he electric, gas, oil or water [employer] threatened to shut off services in your [...]
== END 2025-09-17 12:29 | disposition home or self-care (01) ==
LOC: HO.HWSM 10:24
PROVIDERS: PCP Internal Medicine; Visit Provider Advanced Practice Midwife
DX: Z79.4 Long term (current) use of insulin (principal); E11.65 Type 2 diabetes mellitus with hyperglycemia; Z79.01 Long term (current) use of anticoagulants; B37.31 Acute candidiasis of vulva and vagina
CPT/HCPCS: 99213

== ENCOUNTER 2025-09-21 14:07 | Outpatient (AMB) | payer OTHER, SELFPAY ==
[2025-09-21 14:22] VITALS: BP 126/72; PULSE 75; TEMP 36.3; O2SAT 98; BMI 25.0
--- NOTE | 2025-09-21 14:22 | MHC.PC.OV ---
Vital Signs 09/21/25 14:22 Height 5 ft 4 in Weight 145 lb 8 oz BMI 25.0 BP 126/72 Blood Pressure Location Lt brachial Position Sitting Pulse 75 Pulse Source Pulse Oximeter Temp 97.3 F Temp Source Temporal Artery Scan Pulse Oximetry (%) 98 Oxygen Delivery Method Room Air Intake Visit Reasons: DM , CAD, dermatomyositis Production Pattern Maker Required: Yes Production Pattern Maker Language: Indonesian Allergies penicillin V Allergy (Unknown, Verified 09/21/25 14:25) hives Penicillins (PENICILLINS) Allergy (Unknown, Verified 09/21/25 14:25) RASH,DIZZINESS Tobacco use date assessed: 09/21/25 Dental Screening Dental Screen Date: 09/21/25 Did you have a dental visit in the last 12 months?: Yes Did you have a dental problem in the last 6 months where you did not have access to dental care?: No Was dental information given to patient?: Patient has dentist HPI DM , CAD, dermatomyositis HPI Details interpret [facility] [id number] [facility] Medical History Dermatomyositis Elevated CK CAD (coronary artery disease) STEMI (ST elevation myocardial infarction) GERD (gastroesophageal reflux disease) Physical exam, pre-employment Sebaceous cyst RUQ pain Cervical polyp Muscle strain of right scapular region H. pylori infection Overweight (BMI 25.0-29.9) Hypertension Hypothyroidism MCC (current) use of insulin Diabetes type 2, uncontrolled Surgical History Hx of knee surgery History of coronary artery stent placement Hx of tubal ligation Hx of cholecystectomy Family History Unknown No problems noted. 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 1. Little interest or pleasure in doing things: several days 2. Feeling down, depressed, or hopeless: several days 3. Trouble falling or staying asleep, or sleeping too much: more than half the days 4. Feeling tired or having little energy: more than half the days 5. Poor appetite or overeating: not at all 6. Feeling bad about yourself - or that you are a failure or have let yourself or your family down: several days 7. Trouble concentrating on things, such as reading the newspaper or watching television: not at all 8. Moving or speaking so slowly that other people could have noticed. Or the opposite - being so fidgety or restless that you have been moving around a lot more than usual: several days 9. Thoughts that you would be better off or of hurting yourself in some way: not at all Total score: 8 Depression Screening Interpretation: Positive Depression Screening Done: Yes Source: Developed by Drs. Deepak Woodard, Netta Chairez, Juan R Tovar and colleagues, with an educational kimi from [employer]. Thrive Questionnaire Date Thrive assessed: 04/06/25 I am a: Patient What is your living situation today?: I have a steady place to live Within the past 12 months, did the food you bought not last and you didn't have the money to get more?: Never true Within the past 12 months, did you worry whether your food would run out before you got money to buy more?: Never true Do you have trouble paying for medicines?: No Do you have trouble getting transportation to medical appointments?: No Do you have trouble paying your heating and electricity bill?: No Do you have trouble taking care of your child, family member or friend?: Yes Do you have trouble with day-to-day activities such as bathing, preparing meals, shopping, managing finances, etc.?: No Are you currently unemployed and looking for a job?: Yes Are you interested in more education?: Yes Please select the resources that you would like help with: None Currently or been in a relationship where the following occur: No concerns reported THRIVE Score: 0 AUDIT C Alcohol Use Questionnaire (AUDIT-C) 1. How often do you have a drink containing alcohol?: Never 3. How often do you have six or more drinks on one occasion?: Never Total Score: 0 SHAWN-7 AMB Questionnaire SHAWN-7 Date SHAWN - 7 assessed: 06/09/25 Feeling nervous, anxious, or on edge: 0 = Not at all Not being able to stop or control worryin = Not at all Worrying too much about different things: 0 = Not at all Trouble relaxin = Not at all Being so restless that it is hard to sit still: 0 = Not at all Becoming easily annoyed or irritable: 0 = Not at all Feeling afraid as if something awful might happen: 0 = Not at all Total SHAWN-7 score (0-4 normal; 5-9 mild; 10-14 moderate; 15-21 severe): 0 Source: Developed by Drs. Deepak Woodard, Netta Chairez, Juan R Tovar and colleagues, with an educational kimi from [employer]. Physical exam (Primary Care) Vital Signs: Last Vital Signs Temp 97.3 F 09/21/25 14:22 Pulse 75 09/21/25 14:22 BP 126/72 09/21/25 14:22 Pulse Ox 98 09/21/25 14:22 Oxygen Delivery Method Room Air 09/21/25 14:22 BMI result Body Mass Index 25.0 Tobacco/Smoking Status: Tobacco use Status Tobacco use date assessed 09/21/25 09/21/25 14:28 Patient Tobacco Use Status Never used Tobacco 09/21/25 14:22 Tobacco use type 06/09/25 11:34 e-Cigarette/Vaping Use Never Used 09/21/25 14:22 PHQ-9: PHQ-9 Score PHQ-9: Total score 8 09/21/25 14:53 Depression Screening Interpretation: Positive Thrive Assessment: Date of Thrive Assessment Date Thrive assessed 04/06/25 09/21/25 14:22 Currently or been in a relationship where the following occur: No concerns reported Const General: alert; No acute distress Eyes Conjunctivae: conjunctivae normal Resp Auscultation: clear to auscultation bilaterally Cardio Rate: regular rate Rhythm: regular rhythm GI Inspection: Yes normal to inspection Extrem General: Yes normal to inspection and No edema Coding Level of Care Code Est Pt Level 4 (89598) Complex EM visit Add On G2211 Diagnoses Coronary artery disease without angina pectoris, unspecified vessel or lesion type, unspecified whether [place] or transplanted heart I25.10 Associated angina: without angina Coronary Disease-Associated Artery/Lesion type: unspecified vessel or lesion type [place] vs. transplanted heart: unspecified whether [place] or transplanted heart Hypercholesterolemia E78.00 Essential hypertension I10 Hypertension type: essential hypertension Type 2 diabetes mellitus with hyperglycemia, with long-term current use of insulin E11.65; Z79.4 Diabetes mellitus senior care insulin use: with senior care use Acquired hypothyroidism E03.9 Hypothyroidism type: acquired Gastroesophageal reflux disease without esophagitis K21.9 Esophagitis presence: without esophagitis Dermatomyositis M33.13 Chest pain R07.9 Assessment & Plan Assessment & Plan (1) CAD (coronary artery disease): Comment: 10/2024, December 2024 Code(s): I25.10 - Atherosclerotic heart disease of [place] coronary artery without angina pectoris Category: Medical Qualifiers: Associated angina: without angina Coronary Disease-Associated Artery/Lesion type: unspecified vessel or lesion type [place] vs. transplanted heart: unspecified whether [place] or transplanted heart Qualified Code(s): I25.10 - Atherosclerotic heart disease of [place] coronary artery without angina pectoris Plan: Control the cholesterol, weight, blood pressure, diabetes on aspirin 81 mg once a day and isosorbide (2) Hypercholesterolemia: Code(s): E78.00 - Pure hypercholesterolemia, unspecified Category: Medical Plan: Avoid fried foods, chicken skin, eggs, butter margarine, pastries and meat. Be it pork or beef they have a lot of cholesterol LDL goal of less than 70 and triglyceride of less than 150 patient on Repatha (3) Hypertension: Code(s): I10 - Essential (primary) hypertension Category: Medical Qualifiers: Hypertension type: essential hypertension Qualified Code(s): I10 - Essential (primary) hypertension Plan: Continue with blood pressure medication. Decrease salt intake and exercise patient takes metoprolol 50 mg once a day losartan 25 mg once a day (4) Type 2 diabetes mellitus with hyperglycemia: Comment: [facility] Code(s): E11.65 - Type 2 diabetes mellitus with hyperglycemia Category: Medical Qualifiers: Diabetes mellitus terminologist insulin use: with senior care use Qualified Code(s): E11.65 - Type 2 diabetes mellitus with hyperglycemia; Z79.4 - MCC (current) use of insulin Plan: Decrease the amount of carbohydrate intake, pasta, bread, rice and potatoes are all sugar and that is aside from all the sweet stuff, remember that fruits are good but they are Sweet also. Hemoglobin A1c goal of less than 6.5. Patient on Farxiga, Lantus Humalog metformin (5) Hypothyroidism: Code(s): E03.9 - Hypothyroidism, unspecified Category: Medical Qualifiers: Hypothyroidism type: acquired Qualified Code(s): E03.9 - Hypothyroidism, unspecified Plan: Continue with thyroid medication need to get blood work repeated (6) GERD (gastroesophageal reflux disease): Code(s): K21.9 - Gastro-esophageal reflux disease without esophagitis Category: Medical Qualifiers: Esophagitis presence: without esophagitis Qualified Code(s): K21.9 - Gastro-esophageal reflux disease without esophagitis Plan: Avoid the foods that causes that usually spicy foods, tomato products, juices, coffee, soda and foods that your sensitive to. After eating do not lie down, allow 3-4 hours before in lie down. And keep the head of bed above 30 degrees to avoid the acid from going up. (7) Dermatomyositis: Code(s): M33.13 - Other dermatomyositis without myopathy Category: Medical Plan: Patient is being seen by Rheumatology on IVIG (8) Chest pain: Code(s): R07.9 - Chest pain, unspecified Category: Medical Plan History of Present Illness The patient is a 64-year-old female presenting for a follow-up visit for management of multiple chronic conditions. Her past medical history is significant for hypertension, hypothyroidism, diabetes mellitus, hypercholesterolemia, coronary artery disease, dermatomyositis, and a history of rhabdomyolysis. The patient was recently seen in the emergency room on September 10 for a headache, where the workup was unremarkable. A CT scan of the head from that visit was normal with clear sinuses. She also had an urgent care visit on September 05 for abdominal pain, for which she was advised to follow a clear liquid diet and was given an elixir. Another ER visit occurred on July 08 for left arm pain, with a negative workup. For her dermatomyositis (autoimmune myopathy), she follows with rheumatology and was last seen on September 01. She is on IVIG monotherapy at a dose of 2 g/kg monthly, with noted improvement, and has been advised to taper her prednisone. She was seen by gastroenterology on August 03 and was prescribed pantoprazole, which she discontinued due to bloating. Recent laboratory work from September 11 revealed anemia with a hemoglobin of 11.4 and hematocrit of 35.7, along with mild thrombocytosis and an erythrocyte sedimentation rate of 23. At that time, her blood sugar was 197, while electrolytes, renal function, and liver function were normal. Labs from August 28 showed an LDL of 51, triglycerides of 85, a hemoglobin A1c of 6.6%, and a mildly elevated TSH of 4.69. A chest X-ray in March was noted to be not bad, and a chest CT was performed in January 2025. Regarding health maintenance, her last colonoscopy was in 2016, and her last cervical cancer screening was in August 2023. She is currently due for a mammogram. Health Maintenance The patient is due for a mammogram and has received the appointment letter to schedule it. An eye exam was also recommended. The shingles vaccine was discussed and recommended; it is available at the pharmacy. The patient was counseled on the importance of adequate fluid intake, a healthy diet, and staying active. Social History - Allergies: Patient reports being allergic to everything. - Diet: Advised to eat healthy and drink plenty of water. - Exercise: Advised to keep moving. Review of Systems - General: Denies fever. - HEENT: Reports persistent headaches, pressure in her ears described as a drilling sensation, which affects her sleep. - Denies nasal congestion or sore throat. - Cardiovascular: Reports chest pain that sometimes occurs during sleep, waking her with a fright. - The pain is located under her arm and is elicited by moving her arm. - Respiratory: Reports shortness of breath. - Gastrointestinal: Reports frequent burping. - Denies nausea, vomiting, or problems with bowel movements. - Neurological: Reports headaches and difficulty sleeping. Physical Exam - Respiratory: Patient was observed to breathe deep in and out. - HEENT: Ear examination was normal. - There was no tenderness to palpation of the ears. Results - Labs (September 11): - Hemoglobin: 11.4 and Hematocrit: 35.7, consistent with anemia. - Mild thrombocytosis noted. - Erythrocyte sedimentation rate: 23. - Blood sugar: 197. - Electrolytes, renal function, and liver function were normal. - Labs (August 28): - LDL: 51, Triglycerides: 85. - TSH: 4.69 (mildly elevated). - Hemoglobin A1c: 6.6%. - Imaging: - Head CT (recent): Unremarkable, with clear sinuses. - Chest X-ray (March): Lungs were noted as not bad. - Chest CT (January 2025): Previously performed. Plan Patient was informed and verbally consented to the use of an ambient scribe for clinic note documentation during this visit. 1. Chest Pain The patient reports chest pain that is associated with arm movement, suggesting a musculoskeletal etiology. However, given her cardiac history and the unclear nature of the symptoms, a cardiac stress test will be ordered to rule out an underlying heart problem. The patient consented to this plan. 2. Headache And Ear Pressure The patient complains of persistent headaches and a pressure or drilling sensation in her ears. A recent head CT was unremarkable. It was explained that isosorbide mononitrate, one of her medications for coronary artery disease, can cause headaches as a side effect. It was stressed that she should continue this medication as it is necessary for her heart health. Physical exam of the ears was normal. 3. Coronary Artery Disease Continue current medical therapy, including aspirin 81 mg daily and isosorbide. 4. Hypertension Continue metoprolol 50 mg once a day and losartan 25 mg once a day. 5. Hypercholesterolemia The patient's LDL is well-controlled at 51, meeting the goal of less than 70. Continue Repatha. 6. Diabetes Mellitus The patient's most recent hemoglobin A1c was 6.6%, which is near the goal of less than 6.5%. Continue current regimen of Farxiga, Lantus, GLP-1 RA, and metformin. 7. Hypothyroidism The patient's TSH was mildly elevated at 4.69. Continue current thyroid medication and plan for repeat blood work to monitor levels. 8. Dermatomyositis The patient is being managed by rheumatology with monthly IVIG therapy and is showing improvement. Continue to follow up with her bioengineer. Discussion Notes I discussed with the patient her complaint of chest pain. I explained that while the pain being associated with arm movement suggests a musculoskeletal cause, it is important to rule out a cardiac etiology given her history. I recommended a cardiac stress test, and she agreed to proceed. We also discussed her persistent headaches. I informed her that one of her heart medications, isosorbide mononitrate, can cause headaches, but I advised her not to stop it as it is a necessary treatment for her heart condition. I advised her on preventative care, including the importance of scheduling her mammogram and getting an eye exam. I also recommended the shingles vaccine, explaining that it is available at the pharmacy and can prevent future illness, noting her concern about potential allergies. I reinforced the importance of healthy lifestyle habits, including drinking plenty of water, eating well, and staying active. She was encouraged to contact us with any new problems. Patient Instructions - Continue to take all of your current medications as prescribed by your doctors. - It is very important that you do not stop taking your heart medication, isosorbide, even though it may be causing headaches. - We are ordering a stress test to check on your heart due to your chest pain. - You will receive information about how to schedule this test. - Please get follow-up blood work done as we discussed to check your thyroid levels. - Please schedule your mammogram now that you have received the appointment letter. - Schedule an appointment for an eye exam. - Consider getting the shingles vaccine to protect yourself from shingles. - You can get this at your pharmacy. - Remember to drink plenty of water, eat a healthy diet, and try to stay active. - Please let us know if any new problems develop. Orders: Orders CA stress test Today I25.10 - Atherosclerotic heart disease of [place] coronary artery without angina pectoris, R07.9 - Chest pain, unspecified
--- OUTSIDE RECORDS SUMMARY | 2025-09-21 17:47 | XMS_ITS | Encounter Summary ---
Author Organization [employer] Address [address] 7t [place] [address] Care Team Providers Care Production Inspector Name Role Phone Unavailable Primary Care Provider Unavailabl e Reason for Visit * Reason Comments Med Refill Encounter Details Date Type Department Care Team ([facility] st Contact Info) Description 05/20/2024 Refill [facility] MEDICINE [address] [place] [address] Kimberley Cunningham FNP [address] [place] [address] Primary hypertension Social History Tobacco Use Types [...] t he electric, gas, oil or water [employer] threatened to shut off services in your [...]
--- OUTSIDE RECORDS SUMMARY | 2025-09-21 17:47 | XMS_ITS | Encounter Summary ---
Author Organization [facility] Address [address] [facility] [address] [facility] 7t [place] [address] Care Team Providers Care Sound Engineering Technician Name Role Phone Kimberley Cunningham Primary Care Provider Encounter Details Date Type Department Care Team (Latest Contact Info) Description 01/07/2020 Abstract [facility] CONVERSIONS Dental, Provider, DDS Social [...] on filedocumented in this encounter Care Teams Sound Engineering Technician Relationship Specialty Start Date End Date Kimberley Cunningham FNP 230 [place] [address] PCP - General Family Medicine 07/23/22 03/20/24 documented as of this encounter
--- OUTSIDE RECORDS SUMMARY | 2025-09-21 17:47 | XMS_ITS | Clinical Summary ---
Author Organization [facility] Address [address] [place] [address] Care Team Providers Care Progress Developer Name Role Phone Zaria Milan MD Primary [...] patient's age to complete this topic Insurance [facility] Medicaid Care Teams Progress Developer Relationship Specialty Start Date End Date Zaria Milan MD [address] [place], [place] PCP - General Internal Medicine 02/16/25
--- OUTSIDE RECORDS SUMMARY | 2025-09-21 17:47 | XMS_ITS | Encounter Summary ---
Author Organization [employer] Address [address] 7t [place] [address] Care Team Providers Care Teasel Gig Operator Name Role Phone Unavailable Primary Care Provider Unavailabl e Reason for Visit * Reason Comments Med Refill Encounter Details Date Type Department Care Team ([facility] st Contact Info) Description 06/17/2024 Refill [facility] MEDICINE [address] [place] [address] Kimberley Cunningham FNP [address] [place] [address] Other hyperlipidemia; Type 2 diabetes mellitus with [...]
--- OUTSIDE RECORDS SUMMARY | 2025-09-21 17:47 | XMS_ITS | Clinical Summary ---
Author Organization [employer] Address [address] [facility] 7t [place] [address] Care Team Providers Care Transmission And Coordination Engineer Name Role Phone Unavailable Primary Care [...] -Pt in the process of re-establishing with [facility] Endo -Per last available [...] complication, with long-term current use of insulin ([facility]) MAMMOGRAM GENERIC Routine 10/05/2022 10: 20 AM [...] Legacy Procedure: Mammography Report 1 Kimberley Cunningham REAL ESTATE REP IMG BI PROCEDURES Final Result * LIPID [...] LDL-C. Jesús SS et al. KORTNEY. 2013;310(19): 9615-5509 (http://education.HowGood.com/faq/GDA592) Non-HDL Cholesterol 87 <130 mg/dL (calc) [facility] Comment: For patients with diabetes plus 1 major ASCVD risk factor, treating to a non-HDL-C goal of <100 mg/dL (LDL-C of <70 mg/dL) is considered a therapeutic option. Triglycerides 91 <150 mg/dL [facility] 10/04/2022 8:50 AM EST Kimberley Cunningham REAL ESTATE REP LAB BLOOD ORDERABLES Final Res ult [facility] * MICROALBUMIN, RANDOM (07/13/2021 10:40 AM EDT) Creatinine Urine 30.03 mg/dL [facility] Microalbum/Creati nine Ratio Ur TNP ug/mg cr [facility] Comment: Unable to calculate albumin/creatinine ratio due to low microalbumin or creatinine result. Microalbumin Urine <5.0 mg/L [facility] 07/13/2021 10:4 0 AM EDT Historical Provider HISTORICAL/NON ORDERABLE LABS Final Result Performing Organization Address City/[facility]/ZIP Co de Phone Number [facility] [address] * Pap Smear (03/14/2019) Pap Negative [...] Most Recently Relevant to Health Maintenance Insurance [facility] ([place]) [place] STAND AD[place]
--- OUTSIDE RECORDS SUMMARY | 2025-09-21 17:47 | XMS_ITS | Encounter Summary ---
Author Organization [employer] Address [address] [facility] 7t [place] [address] Care Team Providers Care Mission Systems Engineer Name Role Phone Kimberley Cunningham CARBON BLOCKS PRESS OPERATOR Primary Care Provider [phone] Reason for Visit * Reason Comments Med Refill Encounter Details Date Type Department Care Team ([facility] st Contact Info) Description 09/08/2023 Refill [facility] MEDICINE 230 [place], [place] [phone] Jojo Washburn MD 230 [place], [place] [phone] Depressive disorder Social History Tobacco Use Types [...] documented as of this encounter Care Teams Mission Systems Engineer Relationship Specialty Start Date End Date Kimberley Cunningham FNP [address] [place] [address] PCP - General Family Medicine 07/23/22 03/20/24 documented as of this encounter
--- OUTSIDE RECORDS SUMMARY | 2025-09-21 17:47 | XMS_ITS | Clinical Summary ---
Author Organization [facility] Address [address] [facility] [address] [place] [address] Phone Care Team Providers Care Processes Chemical Design Engineer Name Role Phone Pcp, Unknown Unavailable Unavailable Conor Garcia MD Primary Care Provider [phone] Allergies Active Allergy Reactions Criticality Noted Date [...] Active ferrous sulfate 325 mg (65 mg eyak iron) tablet Take 325 mg by mouth. [...] unspecified vessel or lesion type, unspecified whether qagan tayagungin or transplanted heart from Last 3 Months or Most Recently Relevant to Health Maintenance Results * (ABNORMAL) Lipid panel (12/18/2024 11:58 AM EST) HDL 43 mg/dL [facility] Comment: Interpretation <40 mg/dL: Low HDL cholesterol (major risk factor for CHD) Greater than or equal to 60 mg/dL: High HDL cholesterol ( negative risk factor for CHD) HDL - cholesterol is affected by a number of factors, e.g. smoking, excerise, hormones, sex and age. CHOLESTEROL 182 0 - 240 mg/dL [facility] TRIGLYCERIDES 185(H) 30 - 160 mg/dL [facility] LDL 102 50 - 129 mg/dL [facility] Comment: LDL levels in terms of risk for coronary heart disease: <100 mg/dL: Optimal 100-129 mg/dL: Near or above optimal 130-159 mg/dL: Borderline high 160-189 mg/dL: High >190 mg/dL: Very High CARDIAC RISK RATIO 4.2 3.3 - 4.4 C [facility] Blood 12/18/2024 11:5 8 AM EST 12/18/2024 12:09 PM EST Carl Rosa MD LAB BLOOD ORDERABLES Final Re sult [facility] [address] [place] [address] from Last 3 Months or Most Recently Relevant to Health Maintenance [place] [address] [place] [address] [employer] [facility] [employer] [employer] [facility] [facility] [employer] [facility] [facility] [place] [address] [place] [address] ACO Care Teams Processes Chemical Design Engineer Relationship Specialty Start Date End Date Conor Garcia MD [address] [place] [phone] PCP - General Internal Medicine 12/16/24 Pcp, Unknown 04/09/19 Additional Source Comments The information contained in this document represents components of the legal health record. It is not the complete legal health record.[facility]
--- OUTSIDE RECORDS SUMMARY | 2025-09-21 17:47 | XMS_ITS | Encounter Summary ---
Author Organization [employer] Address [address] 7t [place] [address] Care Team Providers Care Creative Specialist Name Role Phone Unavailable Primary Care Provider Unavailabl e Reason for Visit * Reason Comments Med Refill Encounter Details Date Type Department Care Team ([facility] st Contact Info) Description 08/12/2024 Refill [facility] MEDICINE [address] [place] [address] Kimberley Cunningham FNP [address] [place] [address] Vitamin D insufficiency Social History Tobacco Use [...] the past 12 months, has t he [employer], gas, oil or water company threatened to [...]
--- OUTSIDE RECORDS SUMMARY | 2025-09-21 17:47 | XMS_ITS | Encounter Summary ---
Author Organization [employer] Address [address] 7t [place] [address] Care Team Providers Care Product Designer Name Role Phone Unavailable Primary Care Provider Unavailabl e Reason for Visit * Reason Comments Med Refill Encounter Details Date Type Department Care Team (Late st Contact Info) Description 01/16/2025 Refill [facility] MEDICINE [address] [place] [address] Kimberley Cunningham FNP [address] [place] [address] Type 2 diabetes mellitus with hyperglycemia (CMS/HCC) [...]
--- OUTSIDE RECORDS SUMMARY | 2025-09-21 17:47 | XMS_ITS | Encounter Summary ---
Author Organization [facility] Address [address] [place] [address] Phone Care Team Providers Care Microbiology Manager Name Role Phone Unknown, Unknown Primary Care Provider Qamar byrd Pcp, Unknown Unavailable Unavailable Conor Garcia MD Primary Care Provider [phone] Encounter Details Date Type Department Care Team (Latest Contact Info) Description 04/17/2019 Ancillary Orders [facility] [address] [place] [address] Anson Falcon, DO [address] [place] [address] Chest pain, unspecified type; Palpitations Social History [...] Palpitations documented in this encounter Care Teams Microbiology Manager Relationship Specialty Start Date End Date Unknown, Unknown, PCP - General 04/09/19 12/15/24 Conor Garcia MD [address] [place] [address] PCP - General Internal Medicine 12/16/24 Pcp, Unknown 04/09/19 documented as of this encounter Additional Source Comments The information contained in this document represents components of the legal health record. It is not the complete legal health record.[facility]
--- OUTSIDE RECORDS SUMMARY | 2025-09-21 17:47 | XMS_ITS | Encounter Summary ---
Author Organization [employer] Address [address] [facility] 7t [place] [address] Care Team Providers Care Consulting Nurse Name Role Phone Kimberley Cunningham Primary Care Provider [phone] Reason for Visit * Reason Comments Med Refill Encounter Details Date Type Department Care Team ([facility] st Contact Info) Description 07/26/[address] [facility] MEDICINE [address] [place] [address] Kimberley Cunningham FNP [address] [place] [address] Depressive disorder Social History Tobacco Use Types [...] documented as of this encounter Care Teams Consulting Nurse Relationship Specialty Start Date End Date Kimberley Cunningham FNP 230 [place] [address] PCP - General Family Medicine 07/23/22 03/20/24 documented as of this encounter
--- OUTSIDE RECORDS SUMMARY | 2025-09-21 17:47 | XMS_ITS | Encounter Summary ---
Author Organization [employer] Address [address] [facility] 7t [place] [address] Care Team Providers Care Jig Borer Name Role Phone Kimberley Cunningham HARDWARE TRAINER Primary Care Provider [phone] Encounter Details Date Type Department Care Team ([facility] st Contact Info) Description 10/12/2023 Abstract [facility] MEDICINE [address] [place], [place] [phone] Sandra Villareal Social History Tobacco Use Types [...] documented as of this encounter Care Teams Jig Borer Relationship Specialty Start Date End Date Kimberley Cunningham FNP [address] [place] [address] PCP - General Family Medicine 07/23/22 03/20/24 documented as of this encounter
--- OUTSIDE RECORDS SUMMARY | 2025-09-21 17:47 | XMS_ITS | Encounter Summary ---
Author Organization [employer] Address [address] 7t [place] [address] Care Team Providers Care Canvas Cutter Machine Name Role Phone Unavailable Primary Care Provider Unavailabl e Reason for Visit * Reason Comments Med Refill Encounter Details Date Type Department Care Team ([facility] st Contact Info) Description 11/13/2024 Refill [facility] MEDICINE 230 [place] [address] Kimberley Cunningham FNP [address] [place] [address] Type 2 diabetes mellitus without complication, with long-term current use of insulin ([facility]) Social History Tobacco Use [...]
--- OUTSIDE RECORDS SUMMARY | 2025-09-21 17:47 | XMS_ITS | Encounter Summary ---
Author Organization [employer] Address [address] 7[address] [place] [address] Care Team Providers Care Trade Embalmer Name Role Phone Unavailable Primary Care Provider Unavailabl e Reason for Visit * Reason Comments Med Refill Encounter Details Date Type Department Care Team ([facility] st Contact Info) Description 05/21/2024 Refill [facility] MEDICINE [address] [place] [address] Kimberley Cunningham FNP [address] [place] [address] Primary hypertension Social History Tobacco Use Types [...] t he electric, gas, oil or water [employer] threatened to shut off services in your [...]
--- OUTSIDE RECORDS SUMMARY | 2025-09-21 17:47 | XMS_ITS | Encounter Summary ---
Author Organization [facility] Address [address] [facility] [address] [place] [address] Phone Care Team Providers Care Bolt Sawyer Name Role Phone Unknown, Unknown Primary Care Provider Qamar byrd Pcp, Unknown Unavailable Unavailable Conor Garcia MD Primary Care Provider [phone] Encounter Details Date Type Department Care Team (Latest Contact Info) Description 04/10/2019 Ancillary Orders [facility] [address] [place] [address] [place] [address] Anson Falcon, DO [address] [place] [address] Palpitations; Other chest pain Social History Tobacco [...] pain documented in this encounter Care Teams Bolt Sawyer Relationship Specialty Start Date End Date Unknown, Unknown, MD PCP - General 04/09/19 12/15/24 Po, Conor Carcamo MD [address] [place] [address] Drive [address] [place] [address] PCP - General Internal Medicine 12/16/24 Pcp, Unknown 04/09/19 documented as of this encounter Additional Source Comments The information contained in this document represents components of the legal health record. It is not the complete legal health record.[facility]
--- OUTSIDE RECORDS SUMMARY | 2025-09-21 17:47 | XMS_ITS | Encounter Summary ---
Author Organization [employer] Address [address] 7t [place] [address] Care Team Providers Care Motion Picture Scene Builder Name Role Phone Unavailable Primary Care Provider Unavailabl e Reason for Visit * Reason Comments Med Refill Encounter Details Date Type Department Care Team (Late st Contact Info) Description 01/12/2025 Refill [facility] MEDICINE 230 [place] [address] Kimberley Cunningham FNP [address] [place] [address] Type 2 diabetes mellitus with hyperglycemia (CMS/HCC) [...]
--- OUTSIDE RECORDS SUMMARY | 2025-09-21 17:47 | XMS_ITS | Encounter Summary ---
Author Organization [employer] [facility] Address [address] [facility] 7t [place] [address] Care Team Providers Care Operations Officer Name Role Phone Kimberley Cunningham Primary Care Provider [phone] Encounter Details Date Type Department Care Team [...] on filedocumented in this encounter Care Teams Operations Officer Relationship Specialty Start Date End Date Kimberley Cunningham FNP [address] [place] [address] PCP - General Family Medicine 07/23/22 03/20/24 documented as of this encounter
--- OUTSIDE RECORDS SUMMARY | 2025-09-21 17:47 | XMS_ITS | Encounter Summary ---
Author Organization [employer] Address [address] [facility] 7t [place] [address] Care Team Providers Care Cement Fittings Maker Name Role Phone Unavailable Primary Care Provider Unavailabl e Reason for Visit * Reason Comments Med Refill Encounter Details Date Type Department Care Team ([facility] st Contact Info) Description 09/10/2024 Refill [facility] MED & PEDS 505 [place] [address] Kimberley Cunningham, EILEEN 505 [place] [address] Depressive disorder Social History Tobacco Use Types [...] t he electric, gas, oil or water [employer] threatened to shut off services in your [...]
--- OUTSIDE RECORDS SUMMARY | 2025-09-21 17:47 | XMS_ITS | Encounter Summary ---
Author Organization [employer] Address [address] [facility] 7t [place] [address] Care Team Providers Care Supervisor Unloading Name Role Phone Unavailable Primary Care Provider Unavailabl e Reason for Visit * Reason Comments Med Refill Encounter Details Date Type Department Care Team ([facility] st Contact Info) Description 10/13/2024 Refill [facility] MED & PEDS 505 [place], [place] [phone] Kimberley Cunningham, EILEEN 505 [place] [address] Type 2 diabetes mellitus without complication, with long-term current use of insulin ([facility]) Social History Tobacco Use Types Packs/Day [...]
--- OUTSIDE RECORDS SUMMARY | 2025-09-21 17:47 | XMS_ITS | Encounter Summary ---
Author Organization [employer] Address [address] [facility] 7t [place] [address] Care Team Providers Care Bobbin Disker Name Role Phone Unavailable Primary Care Provider Unavailabl e Reason for Visit * Reason Comments Med Refill Encounter Details Date Type Department Care Team ([facility] st Contact Info) Description 08/15/2024 Refill [facility] MED & PEDS [address] [place] [address] Kimberley Cunningham, CO FOUNDER AND CHIEF STRATEGY OFFICER [address] [place] [address] Hypothyroidism, unspecified type Social History Tobacco Use [...]
== END 2025-09-21 15:14 | disposition home or self-care (01) ==
LOC: HO.HMCH 14:08
PROVIDERS: PCP Internal Medicine; Visit Provider Internal Medicine
DX: E11.65 Type 2 diabetes mellitus with hyperglycemia (principal); M33.13 Other dermatomyositis without myopathy; Z79.4 Long term (current) use of insulin; I25.10 Atherosclerotic heart disease of native coronary artery without angina pectoris; E78.00 Pure hypercholesterolemia, unspecified; I10 Essential (primary) hypertension; E03.9 Hypothyroidism, unspecified; K21.9 Gastro-esophageal reflux disease without esophagitis; R07.9 Chest pain, unspecified

== ENCOUNTER → 2025-09-21 14:07 | Outpatient (BNVA) | payer OTHER, SELFPAY | PROVIDERS: PCP Internal Medicine; Visit Provider Internal Medicine | DX: I25.10 Atherosclerotic heart disease of native coronary artery without angina pectoris (principal); E78.00 Pure hypercholesterolemia, unspecified; I10 Essential (primary) hypertension; E11.65 Type 2 diabetes mellitus with hyperglycemia; E03.9 Hypothyroidism, unspecified; K21.9 Gastro-esophageal reflux disease without esophagitis; M33.13 Other dermatomyositis without myopathy; R07.9 Chest pain, unspecified; R51.9 Headache, unspecified; Z79.4 Long term (current) use of insulin | CPT/HCPCS: 99212 ==

== ENCOUNTER 2025-10-05 05:03 | Emergency (ER) | payer OTHER, SELFPAY ==
--- NOTE | 2025-10-05 | ECG_ITS ---
Test Reason : L SHOLDER PAIN Blood Pressure : */* mmHG Vent. Rate : 68 BPM Atrial Rate : 68 BPM P-R Int : 134 ms QRS Dur : 80 ms QT Int : 364 ms P-R-T Axes : 43 15 58 degrees QTcB Int : 387 ms Normal sinus rhythm Normal ECG When compared with ECG of 10-Sep-2025 08:32, Nonspecific T wave abnormality, improved in Anterolateral leads Referred By: Generic ED Physician Electronically Signed By: CAROLINA HOYT MD
--- NOTE | ~2025-10-05 | XR_ITS ---
CLINICAL HISTORY: L sided neck apin 3 views cervical spine Comparison: CT/SR - CT CERVICAL SPINE WITHOUT IV CONTRAST - 08/08/24 20:38 EDT Findings: Normal alignment. No acute fractures or dislocation. Multilevel disc height loss with reactive endplate change and osteophyte formation with bilateral facet hypertrophy. Prevertebral soft tissues within normal limits. IMPRESSION: Degenerative changes. No acute findings. This document has been electronically signed by: Norma Cummings MD on 10/05/2025 08:12:28
[2025-10-05 05:16] VITALS: BP 150/58; BP 166/88; PULSE 76; PULSE 80; RESP 18; TEMP 36.8; O2SAT 97; O2SAT 98; BMI 23.9
--- NOTE | 2025-10-05 05:26 | PC.NURSE ---
pt reports chronic L shoulder/ neck pain. pt reports 07/05, daughter called EMS.
--- OUTSIDE RECORDS SUMMARY | 2025-10-05 05:32 | XMS_ITS | Clinical Summary ---
Author Organization [facility] Address [address] [place] [address] Care Team Providers Care Rail Car Repairman Name Role Phone Zaria Milan MD Primary Care Provider [phone] Social History Tobacco Use Types Packs/Day Years [...] age to complete this topic Insurance [facility] Medicaid Care Teams Rail Car Repairman Relationship Specialty Start Date End Date Zaria Milan MD [address] [place], [place] PCP - General Internal Medicine 02/16/25
--- OUTSIDE RECORDS SUMMARY | 2025-10-05 05:32 | XMS_ITS | Encounter Summary ---
Author Organization [employer] Address [address] 7t [place] [address] Care Team Providers Care Streetsweeper Operator Name Role Phone Unavailable Primary Care Provider Unavailabl e Reason for Visit * Reason Comments Med Refill Encounter Details Date Type Department Care Team ([facility] st Contact Info) Description 11/13/2024 Refill [facility] MEDICINE 230 [place] [address] Kimberley Cunningham FNP [address] [place] [address] Type 2 diabetes mellitus without complication, with long-term current use of insulin ([facility]) Social History Tobacco Use Types [...]
--- OUTSIDE RECORDS SUMMARY | 2025-10-05 05:32 | XMS_ITS | Encounter Summary ---
Author Organization [employer] Address [address] [facility] 7t [place] [address] Care Team Providers Care Expressive Art Therapist Name Role Phone Unavailable Primary Care Provider Unavailabl e Reason for Visit * Reason Comments Med Refill Encounter Details Date Type Department Care Team ([facility] st Contact Info) Description 09/10/2024 Refill [facility] MED & PEDS [address] [place] [address] Kimberley Cunningham, EILEEN [address] [place] [address] Depressive disorder Social History Tobacco Use Types [...] t he electric, gas, oil or water [employer] threatened to shut off services in your [...]
--- OUTSIDE RECORDS SUMMARY | 2025-10-05 05:32 | XMS_ITS | Encounter Summary ---
Author Organization [employer] Address [address] [facility] 7t [place] [address] Care Team Providers Care Employment And Claims Aide Name Role Phone Kimberley Cunningham ASSOCIATE MEDIA DIRECTOR Primary Care Provider [phone] Reason for Visit * Reason Comments Med Refill Encounter Details Date Type Department Care Team ([facility] st Contact Info) Description 09/08/2023 Refill [facility] MEDICINE 230 [place], [place] [phone] Jojo Washburn MD 230 [place], [place] [phone] Depressive disorder Social History Tobacco Use Types [...] documented as of this encounter Care Teams Employment And Claims Aide Relationship Specialty Start Date End Date Kimberley Cunningham FNP [address] [place] [address] PCP - General Family Medicine 07/23/22 03/20/24 documented as of this encounter
--- OUTSIDE RECORDS SUMMARY | 2025-10-05 05:32 | XMS_ITS | Encounter Summary ---
Author Organization [employer] Address [address]t [place] [address] Care Team Providers Care Mirror Framer Name Role Phone Unavailable Primary Care Provider Unavailabl e Reason for Visit * Reason Comments Med Refill Encounter Details Date Type Department Care Team ([facility] st Contact Info) Description 05/21/2024 Refill [facility] MEDICINE 230 [place] [address] Kimberley Cunningham FNP [address] [place] [address] Primary hypertension Social History Tobacco Use Types [...] t he electric, gas, oil or water [employer] threatened to shut off services in your [...]
--- OUTSIDE RECORDS SUMMARY | 2025-10-05 05:32 | XMS_ITS | Encounter Summary ---
Author Organization [employer] Address [address] [facility] 7t [place] [address] Care Team Providers Care Process Excellence Manager Name Role Phone Unavailable Primary Care Provider Unavailabl e Reason for Visit * Reason Comments Med Refill Encounter Details Date Type Department Care Team ([facility] st Contact Info) Description 10/13/2024 Refill [facility] MED & PEDS [address] [place] [address] Kimberley Cunningham, EILEEN [address] [place] [address] Type 2 diabetes mellitus without complication, with long-term current use of insulin ([facility]) Social History Tobacco Use Types Packs/Day Years [...]
--- OUTSIDE RECORDS SUMMARY | 2025-10-05 05:32 | XMS_ITS | Encounter Summary ---
Author Organization [employer] Address [address] [facility] 7t [place] [address] Care Team Providers Care Condominium Association Manager Name Role Phone Kimberley Cunningham AP PROCESSOR Primary Care Provider [phone] Encounter Details Date Type Department Care Team ([facility] st Contact Info) Description 10/12/2023 Abstract [facility] MEDICINE [address] [place], [place] [id number] Sandra Villareal Social History Tobacco Use Types [...] documented as of this encounter Care Teams Condominium Association Manager Relationship Specialty Start Date End Date Kimberley Cunningham FNP [address] [place] [id number] PCP - General Family Medicine 07/23/22 03/20/24 documented as of this encounter
--- OUTSIDE RECORDS SUMMARY | 2025-10-05 05:32 | XMS_ITS | Encounter Summary ---
Author Organization [employer] Address [address] [facility] [address] 7t [place] [address] Care Team Providers Care Entertainment Production Professional Name Role Phone Unavailable Primary Care Provider Unavailabl e Reason for Visit * Reason Comments Med Refill Encounter Details Date Type Department Care Team (Late st Contact Info) Description 01/12/2025 Refill [facility] MEDICINE [address] [place] [address] Kimberley Cunningham FNP [address] [place] [address] Type 2 diabetes mellitus with hyperglycemia (CMS/HCC) [...]
--- OUTSIDE RECORDS SUMMARY | 2025-10-05 05:32 | XMS_ITS | Encounter Summary ---
Author Organization [employer] Address [address] [facility] [address] 7[address] [place] [address] Care Team Providers Care Network Intern Name Role Phone Unavailable Primary Care Provider Unavailabl e Reason for Visit * Reason Comments Med Refill Encounter Details Date Type Department Care Team ([facility] st Contact Info) Description 05/20/2024 Refill [facility] MEDICINE [address] [place] [address] Kimberley Cunningham FNP [address] [place] [address] Primary hypertension Social History Tobacco Use Types [...] t he electric, gas, oil or water [employer] threatened to shut off services in your [...]
--- OUTSIDE RECORDS SUMMARY | 2025-10-05 05:32 | XMS_ITS | Clinical Summary ---
Author Organization [facility] Address [address] [facility] [address] [place] [address] Phone Care Team Providers Care Docket Specialist Name Role Phone Pcp, Unknown Unavailable Unavailable Conor Garcia MD Primary Care Provider [phone] Allergies Active Allergy Reactions Criticality Noted Date [...] Active ferrous sulfate 325 mg (65 mg bill moore's slough iron) tablet Take 325 mg by mouth. [...] patient's age to complete this topic IPV VACCINES Aged Out No longer eligi ble [...] unspecified vessel or lesion type, unspecified whether manzanita or transplanted heart from Last 3 Months or Most Recently Relevant to Health Maintenance Results * (ABNORMAL) Lipid panel (12/18/2024 11:58 AM EST) HDL 43 mg/dL [facility] Comment: Interpretation <40 mg/dL: Low HDL cholesterol (major risk factor for CHD) Greater than or equal to 60 mg/dL: High HDL cholesterol ( negative risk factor for CHD) HDL - cholesterol is affected by a number of factors, e.g. smoking, excerise, hormones, sex and age. CHOLESTEROL 182 0 - 240 mg/dL [facility] TRIGLYCERIDES 185(H) 30 - 160 mg/dL [facility] LDL 102 50 - 129 mg/dL [facility] Comment: LDL levels in terms of risk for coronary heart disease: <100 mg/dL: Optimal 100-129 mg/dL: Near or above optimal 130-159 mg/dL: Borderline high 160-189 mg/dL: High >190 mg/dL: Very High CARDIAC RISK RATIO 4.2 3.3 - 4.4 C [facility] Blood 12/18/2024 11:5 8 AM EST 12/18/2024 12:09 PM EST us Carl Rosa MD LAB BLOOD BKR ORDERABLES Ally carias Result [address] [address] from Last 3 Months or Most Recently Relevant to Health Maintenance Insurance ACO ACO [facility] ACO [facility] ACO [facility] [place] [address] [place] [address] ACO Care Teams Docket Specialist Relationship Specialty Start Date End Date Conor Garcia MD [address] [place] [id number] PCP - General Internal Medicine 12/16/24 Pcp, Unknown 04/09/19 Additional Source Comments The information contained in this document represents components of the legal health record. It is not the complete legal health record.[facility]
--- OUTSIDE RECORDS SUMMARY | 2025-10-05 05:32 | XMS_ITS | Encounter Summary ---
Author Organization [facility] Address [address] [facility] [address] [place] [address] Phone Care Team Providers Care Advertising Inserter Name Role Phone Unknown, Unknown Primary Care Provider Qamar byrd Pcp, Unknown Unavailable Unavailable Conor Garcia MD Primary Care Provider [phone] Encounter Details Date Type Department Care Team (Latest Contact Info) Description 04/17/2019 Ancillary Orders [facility] [address] [place] [address] Anson Falcon, DO [address] [place] [address] Chest pain, unspecified type; Palpitations Social History [...] Palpitations documented in this encounter Care Teams Advertising Inserter Relationship Specialty Start Date End Date Unknown, Unknown, PCP - General 04/09/19 12/15/24 Conor Garcia MD [address] [place] [address] PCP - General Internal Medicine 12/16/24 Pcp, Unknown 04/09/19 documented as of this encounter Additional Source Comments The information contained in this document represents components of the legal health record. It is not the complete legal health record.[facility]
--- OUTSIDE RECORDS SUMMARY | 2025-10-05 05:32 | XMS_ITS | Encounter Summary ---
Author Organization [facility] Address [address] [facility] [address] [place] [address] Phone Care Team Providers Care Watch Case Polisher Name Role Phone Unknown, Unknown Primary Care Provider Qamar byrd Pcp, Unknown Unavailable Unavailable Conor Garcia MD Primary Care Provider [phone] Encounter Details Date Type Department Care Team (Latest Contact Info) Description 04/10/2019 Ancillary Orders [facility] [address] [place] [address] [place] [address] Anson Falcon, DO [address] [place] [address] Palpitations; Other chest pain Social History Tobacco [...] pain documented in this encounter Care Teams Watch Case Polisher Relationship Specialty Start Date End Date Unknown, Unknown, MD PCP - General 04/09/19 12/15/24 Po, Conor Carcamo MD [address] [place] [address] Drive [address] [place] [address] PCP - General Internal Medicine 12/16/24 Pcp, Unknown 04/09/19 documented as of this encounter Additional Source Comments The information contained in this document represents components of the legal health record. It is not the complete legal health record.[facility]
--- OUTSIDE RECORDS SUMMARY | 2025-10-05 05:32 | XMS_ITS | Encounter Summary ---
Author Organization [employer] Address [address] [facility] [address] 7t [place] [address] Care Team Providers Care Traffic Recorder Name Role Phone Unavailable Primary Care Provider Unavailabl e Reason for Visit * Reason Comments Med Refill Encounter Details Date Type Department Care Team (Late st Contact Info) Description 01/16/2025 Refill [facility] MEDICINE [address] [place] [address] Kimberley Cunningham FNP [address] [place] [address] Type 2 diabetes mellitus with hyperglycemia (CMS/HCC) [...]
--- OUTSIDE RECORDS SUMMARY | 2025-10-05 05:32 | XMS_ITS | Encounter Summary ---
Author Organization [employer] Address [address] [facility] [address] [place] [address] Care Team Providers Care Ring Rolling Machine Operator Name Role Phone Unavailable Primary Care Provider Unavailabl e Reason for Visit * Reason Comments Med Refill Encounter Details Date Type Department Care Team ([facility] st Contact Info) Description 08/12/2024 Refill [facility] MEDICINE [address] [place] [address] Kimberley Cunningham FNP [address] [place] [address] Vitamin D insufficiency Social History Tobacco Use [...] the past 12 months, has t he [employer] gas, oil or water company threatened to [...]
--- OUTSIDE RECORDS SUMMARY | 2025-10-05 05:32 | XMS_ITS | Encounter Summary ---
Author Organization [employer] [facility] Address [address] [facility] 7t [place] [address] Care Team Providers Care Form Setter/Driver Name Role Phone Kimberley Cunningham Primary Care Provider [phone] Encounter Details Date Type Department Care Team (Latest Contact Info) Description 01/20/2021 Abstract [facility] CONVERSIONS Dental, Provider, DDS Social [...] on filedocumented in this encounter Care Teams Form Setter/Driver Relationship Specialty Start Date End Date Kimberley Cunningham FNP [address] [place] [address] PCP - General Family Medicine 07/23/22 03/20/24 documented as of this encounter
--- OUTSIDE RECORDS SUMMARY | 2025-10-05 05:32 | XMS_ITS | Encounter Summary ---
Author Organization [employer] Address [address] [facility] [address]t [place] [address] Care Team Providers Care Parachute Taper Name Role Phone Unavailable Primary Care Provider Unavailabl e Reason for Visit * Reason Comments Med Refill Encounter Details Date Type Department Care Team ([facility] st Contact Info) Description 06/17/2024 Refill [facility] MEDICINE [address] [place] [address] Kimberley Cunningham FNP [address] [place] [address] Other hyperlipidemia; Type 2 diabetes mellitus with [...]
--- OUTSIDE RECORDS SUMMARY | 2025-10-05 05:32 | XMS_ITS | Clinical Summary ---
Author Organization [employer] Address [address] [facility] 7t [place] [address] Care Team Providers Care Procedural Nurse Name Role Phone Unavailable Primary Care Provider [...] -Pt in the process of re-establishing with [facility] -Per last available consult note: -CONT [...] with long-term current use of insulin ([facility]) MAMMOGRAM GENERIC Routine 10/05/2022 10: [...] Legacy Procedure: Mammography Report 1 Kimberley Cunningham STEAM TURBINE ASSEMBLER IMG BI PROCEDURES Final Result * LIPID [...] LDL-C. Jesús SS et al. KORTNEY. 2013;310(19): 0954-2301 (http://education.Kyber[employer].com/faq/OQB332) Non-HDL Cholesterol 87 <130 mg/dL (calc) [facility] Comment: For patients with diabetes plus 1 major ASCVD risk factor, treating to a non-HDL-C goal of <100 mg/dL (LDL-C of <70 mg/dL) is considered a therapeutic option. Triglycerides 91 <150 mg/dL [facility] 10/04/2022 8:50 AM EST Kimberley Cunningham STEAM TURBINE ASSEMBLER LAB BLOOD ORDERABLES Final Res ult [facility] * MICROALBUMIN, RANDOM (07/13/2021 10:40 AM EDT) Creatinine Urine 30.03 mg/dL [facility] Microalbum/Creati nine Ratio Ur TNP ug/mg cr [facility] Comment: Unable to calculate albumin/creatinine ratio due to low microalbumin or creatinine result. Microalbumin Urine <5.0 mg/L [facility] 07/13/2021 10:4 0 AM EDT Historical Provider HISTORICAL/NON ORDERABLE LABS Final Result Performing Organization Address City/[facility]/ZIP Co de Phone Number [facility] [address] * Pap Smear (03/14/2019) Pap Negative [...] Most Recently Relevant to Health Maintenance Insurance [facility] ([place] ST[place] AD[place]
--- OUTSIDE RECORDS SUMMARY | 2025-10-05 05:32 | XMS_ITS | Encounter Summary ---
Author Organization [employer] Address [address] [facility] 7t [place] [address] Care Team Providers Care Statement Request Clerk Name Role Phone Kimberley Cunningham Primary Care Provider [phone] Reason for Visit * Reason Comments Med Refill Encounter Details Date Type Department Care Team ([facility] st Contact Info) Description 07/26/2023 Refill [facility] MEDICINE [address] [place] [address] Kimberley Cunningham FNP [address] [place] [address] Depressive disorder Social History Tobacco Use Types [...] documented as of this encounter Care Teams Statement Request Clerk Relationship Specialty Start Date End Date Kimberley Cunningham FNP [address] [place] [address] PCP - General Family Medicine 07/23/22 03/20/24 documented as of this encounter
--- OUTSIDE RECORDS SUMMARY | 2025-10-05 05:32 | XMS_ITS | Encounter Summary ---
Author Organization [employer] [facility] Address [address] [facility] 7t [place] [address] Care Team Providers Care Accounts Receivable Specialist Name Role Phone Kimberley Cunningham Primary Care Provider [phone] Encounter Details Date Type Department Care Team (Latest Contact Info) Description 01/07/2020 Abstract [facility] CONVERSIONS Dental, Provider, DDS Social History Tobacco [...] on filedocumented in this encounter Care Teams Accounts Receivable Specialist Relationship Specialty Start Date End Date Kimberley Cunningham FNP [address] [place] [address] PCP - General Family Medicine 07/23/22 03/20/24 documented as of this encounter
--- OUTSIDE RECORDS SUMMARY | 2025-10-05 05:32 | XMS_ITS | Encounter Summary ---
Author Organization [employer] Address [address] [facility] 7t [place] [address] Care Team Providers Care Manufacturing Engineering Technologist Name Role Phone Unavailable Primary Care Provider Unavailabl e Reason for Visit * Reason Comments Med Refill Encounter Details Date Type Department Care Team ([facility] st Contact Info) Description 08/15/2024 Refill [facility] MED & PEDS [address] [place] [address] Kimberley Cunningham, MAIL ROOM CLERK [address] [place] [address] Hypothyroidism, unspecified type Social History Tobacco Use [...]
[2025-10-05 05:43] LABS: MANUAL DIFF FLAG NO
[2025-10-05 05:44] LABS: Hematocrit 37.2 % (37.0-47.0); Hemoglobin 12.1 g/dl (12.0-16.0); Imm Gran Abs Auto 0.03 X10*3/uL (0.00-0.03); Imm Gran Pct Auto 0.3 % (0.0-0.4); Lymphocytes Absolute Auto 1.7 X10*3/uL (1.2-4.9); Mean Corpuscular HGB Conc 32.5 g/dl (31.0-35.0); Mean Corpuscular Hemoglobin 26.6 pg (27.0-33.0); Mean Corpuscular Volume 81.8 fL (80.0-98.0); NRBC Abs Auto 0.000 X10*3/uL (0.0-0.012); NRBC Pct Auto 0.0 /100WBC (0.0-0.2); Platelet Count 380 X10*3/uL (160-400); Red Blood Count 4.55 X10*6/uL (4.20-5.50); White Blood Count 8.6 X10*3/uL (4.8-10.8)
[2025-10-05 05:58] LABS: Alanine Aminotransferase 13 U/L (0-31); Albumin Level 4.3 g/dL (3.5-5.0); Alkaline Phosphatase 77 U/L (39-117); Anion Gap 12 (12-20); Aspartate Amino Transferase 20 U/L (5-31); Blood Urea Nitrogen 22 mg/dL (9-16); Calcium 9.9 mg/dL (8.4-10.2); Carbon Dioxide 29 mmol/L (22-29); Chloride 103 mmol/L (96-108); Creatinine Clr Calc Pharmacy 77.4; Estimated Glomerular Filt Rate > 60; Potassium 4.4 mmol/L (3.3-5.1); Sodium 140 mmol/L (135-145); Total Protein 7.8 g/dL (6.5-8.0)
[2025-10-05 06:05] LABS: Troponin-I High Sensitivity 2.9 ng/L (<3.5-17.0)
--- NOTE | 2025-10-05 06:41 | ED.EXTPRO ---
HPI - Extremity Problem General Chief complaint: Extremity Problem Stated complaint: WOKE UP W/[place],FAST HR,L SHOULDER PAIN PER EMS Time Seen by Provider: 10/05/25 05:50 Source: patient, EMS, old records reviewed and internist medical doctor md Mode of arrival: EMS Limitations: no limitations History of Present Illness ED Provider: ASHLEY HPI Narrative: 64-year-old female with past medical history of coronary artery disease on Brilinta, diabetes, anxiety, GERD, left shoulder tendinitis, hyperlipidemia, hypertension, hypothyroidism, anemia and with recurrent left sharp neck and shoulder pain that wakes her from sleep. She notes no numbness or tingling. She denies any new trauma. She states for the last year she gets woken up on her sleep due to the pain asked her if she has known cervical radiculopathy and she says she does not think anyone ever said that to her. She notes this morning it has already improved but when it 1st smoker she called 911 immediately. She denies any chest pain or trouble breathing. She states for the last year this goes on and off and it really disrupts her sleep MD Complaint: extremity pain Onset (ago): year(s) (One) Pain Consistency: intermittent Location: left and upper extremity Quality: sharp Radiation: distal Relieving factors: immobilization Exacerbating factors: other (Sleeping) Associated symptoms: denies other symptoms Related Data Home Medications ?Medication ?Instructions ?Recorded ?Confirmed blood glucose control high and low #1 ea 09/07/20 09/17/25 solution (FreeStyle Control solution) Previous Rx's ?Medication ?Instructions ?Recorded pen needle, diabetic 32 gauge x #100 ea 11/02/20 (BD Corin 2nd Gen Pen Needle) pen needle, diabetic 32 gauge x #100 ea 04/18/22 (BD Ultra-Fine Corin Pen Needle) lancets 28 gauge (FreeStyle #100 ea 11/29/23 Lancets) blood pessure cuff #1 ea 11/28/24 blood-glucose meter (FreeStyle #1 ea 11/28/24 Lite Meter kit) metoprolol succinate 50 mg 50 mg PO DAILY #90 tabs 12/02/24 tablet,extended release 24 hr aspirin 81 mg tablet,delayed 81 mg PO DAILY #90 tabs 02/17/25 release (Adult Low Dose Aspirin) melatonin 10 mg capsule 10 mg PO BEDTIME PRN sleep #30 caps 02/17/25 cane #1 ea 02/23/25 lancets 33 gauge (TRUEplus Lancets) #100 ea 04/17/25 evolocumab 140 mg/mL subcutaneous 140 mg subcut Q2W #1 mL 06/09/25 syringe (Repatha Syringe) insulin glargine 100 unit/mL (3 9 unit (0.09 mL) subcut DAILY 30 06/09/25 mL) subcutaneous pen (Lantus days #2.7 mL Solostar U-100 Insulin) insulin lispro 100 unit/mL See Rx Instructions subcut 06/09/25 subcutaneous pen (Humalog KwikPen USEASDIRECTD #15 mL (U-100) Insulin) ferrous sulfate 325 mg (65 mg 325 mg PO BID #60 tabs 06/18/25 iron) tablet ticagrelor 90 mg tablet (Brilinta) 90 mg PO BID #60 tabs 06/26/25 pen needle, diabetic 32 gauge x #100 ea 07/10/25 blood sugar diagnostic (FreeStyle #100 ea 07/12/25 Lite Strips) cholecalciferol (vitamin D3) 50 50 mcg PO DAILY #90 caps 08/07/25 mcg (2,000 unit) capsule isosorbide mononitrate 30 mg 30 mg PO DAILY #90 tabs 08/09/25 tablet,extended release 24 hr levothyroxine 150 mcg tablet 150 mcg PO DAILY@0600 #30 tabs 08/09/25 prednisone 1 mg tablet 1 mg PO DAILY #588 tabs 09/01/25 dapagliflozin propanediol 10 mg 10 mg PO DAILY #90 tabs 09/07/25 tablet (Farxiga) fluoxetine 10 mg capsule 10 mg PO DAILY #90 caps 09/07/25 losartan 25 mg tablet 25 mg PO DAILY #90 tabs 09/07/25 miconazole nitrate 2 % vaginal 1 appful vaginal BEDTIME 7 days 09/17/25 cream (Miconazole-7) #45 grams metformin 1,000 mg tablet 1,000 mg PO BID #180 tabs 10/04/25 cyclobenzaprine 10 mg tablet 10 mg PO TID PRN muscle spasm #20 10/05/25 tabs lidocaine 5 % topical patch 1 patch topical DAILY #30 ea 10/05/25 Allergies Allergy/AdvReac Type Severity Reaction Status Date / Time penicillin V Allergy Unknown hives Verified 10/05/25 05:19 Penicillins (PENICILLINS) Allergy Unknown RASH,DIZZIN Verified 10/05/25 05:19 ESS Review of Systems Review of Systems: Constitutional : No Weight loss, No Fever, No Chills, ENT/Mouth : No Hearing loss, No Ear Pain, No Nasal Congestion, No Sinus Pain, No Hoarseness, No sore throat, No Rhinorrhea, No Swallowing Difficulty Cardiovascular : No Chest Pain, No SOB Respiratory : No Cough, No Dyspnea Gastrointestinal : No Nausea, No Vomiting, No Diarrhea, No abdominal Pain, No Hematochezia, No Melena Genitourinary : No Dysuria, No Urinary Frequency, No Hematuria, No Urinary Incontinence, Musculoskeletal : positive neck and left shoulder Skin : No Skin Lesions, No rash Neuro : No Weakness, No Numbness, No Paresthesias, no loss of bowel or bladder incontinence, no saddle anesthesia Yes all other systems are reviewed and are negative PMFSH Past Medical History Attestation statement: The following information was validated with the patient. Source: old records reviewed Medical History Dermatomyositis Elevated CK CAD (coronary artery disease) STEMI (ST elevation myocardial infarction) GERD (gastroesophageal reflux disease) Physical exam, pre-employment Sebaceous cyst RUQ pain Cervical polyp Muscle strain of right scapular region H. 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 Father Diabetes Heart disease Mother Diabetes Hypertension Heart disease Brother Lung cancer Sister Heart disease Social History Social History Household Members: Family Housing: House Are you a primary team primary care physician to a significant other at home: No Do you presently have visiting nurse or other home services: Yes Alcohol intake: never Patient Tobacco Use Status: Never used Tobacco e-Cigarette/Vaping Use: Never Used Second Hand Smoke Exposure: No Advance Directives: Yes Advance Directives on File: Yes Advance Directives Date on File: 09/04/25 Patient : No service: No Current occupational status: employed and disabled 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 Oriented X3. No acute distress. Eyes: Pupils equal, round and reactive to light. ENT: Pharynx normal. Neck: She has left lateral tenderness to palpation which reproduces the pain, she has positive Spurling maneuver on the left side she is distal neurovascularly intact. CVS: Normal heart rate and rhythm. Pulses normal. Respiratory: No respiratory distress. Breath sounds normal. Abdomen: Soft and nontender. Skin: Skin warm and dry. Normal skin color. Normal skin turgor. Extremities: No lower extremity edema. No calf ttp Neuro: Oriented X 3. No motor deficit. No sensory deficit. CN2-12 intact Medications Administered Discontinued Medications Generic Name Dose Route Start Last Admin Trade Name Freq PRN Reason Stop Dose Admin Acetaminophen 975 mg 10/05/25 06:19 10/05/25 06:31 Acetaminophen 325 Mg Tablet PO 10/05/25 06:20 975 mg ONCE ONE Administration Cyclobenzaprine HCl 5 mg 10/05/25 06:19 10/05/25 06:31 Cyclobenzaprine Hcl 5 Mg Tablet PO 10/05/25 06:20 5 mg ONCE ONE Administration Medical Decision Making Medical Decision Making MDM Narrative: 64-year-old female with past medical history of coronary artery disease on Brilinta, diabetes, anxiety, GERD, left shoulder tendinitis, hyperlipidemia, hypertension, hypothyroidism, anemia who is here with complaint of left-sided neck pain, that radiates down the left arm, she has no rash, her sensation and pulses are intact on the left side. She has a positive Spurling's maneuver on the left side. At this time I suspect given the 1 year duration that this would be atypical for ACS. I suspect that she has cervical radiculopathy. I am obtaining x-ray of the cervical spine and will treat with analgesia. She is neurovascularly intact Differential Diagnosis Differential Diagnoses: The differential diagnosis associated with the presentation includes Cervical radiculopathy, cervical stenosis, tendonitis Admission/Observation Consideration of admission/observation: Escalation of care including admission/observation considered She has no red flags on exam her workup is reassuring at this time she can be DC home with Flexeril and lidocaine patch Lab Data MDM Lab Attestation statement: I reviewed the patient's lab results. Reassuring lab 10/05/25 05:38 10/05/25 05:38 Labs: Lab Results 10/05/25 Range/Units 05:38 WBC 8.6 (4.8-10.8) X10*3/uL RBC 4.55 (4.20-5.50) X10*6/uL Hgb 12.1 (12.0-16.0) g/dl Hct 37.2 (37.0-47.0) % MCV 81.8 (80.0-98.0) fL MCH 26.6 L (27.0-33.0) pg MCHC 32.5 (31.0-35.0) g/dl RDW 15.4 (11.0-16.0) % Plt Count 380 (160-400) X10*3/uL MPV 8.2 L (9.4-12.3) fL Immature Gran % (Auto) 0.3 (0.0-0.4) % Neut % (Auto) 70.8 (45-73) % Lymph % (Auto) 19.4 L (20-40) % [place] % (Auto) 7.4 (2-11) % Eos % (Auto) 1.4 (0-4) % Baso % (Auto) 0.7 (0-2) % Lymph # (Auto) 1.7 (1.2-4.9) X10*3/uL [place] # (Auto) 0.6 (0.1-1.2) X10*3/uL Eos # (Auto) 0.1 (0.0-0.4) X10*3/uL Baso # (Auto) 0.1 (0.0-0.2) X10*3/uL Abs Immat Gran (auto) 0.03 (0.00-0.03) X10*3/uL Absolute Neuts (auto) 6.1 (2.0-8.3) x10*3/uL Absolute Nucleated RBC 0.000 (0.0-0.012) X10*3/uL Nucleated RBC % (auto) 0.0 (0.0-0.2) /100WBC Sodium 140 (135-145) mmol/L Potassium 4.4 (3.3-5.1) mmol/L Chloride 103 (96-108) mmol/L Carbon Dioxide 29 (22-29) mmol/L Anion Gap 12 (12-20) BUN 22 H (9-16) mg/dL Creatinine 0.65 (0.5-1.4) mg/dL Estim Creat Clear Calc 77.4 Estimated GFR > 60 Random Glucose 161 H (60-115) mg/dL Calcium 9.9 (8.4-10.2) mg/dL Total Bilirubin 0.3 (0.0-1.0) mg/dL AST 20 (5-31) U/L ALT 13 (0-31) U/L Alkaline Phosphatase 77 (39-117) U/L Troponin I High Sens 2.9 D (<3.5-17.0) ng/L Total Protein 7.8 (6.5-8.0) g/dL Albumin 4.3 (3.5-5.0) g/dL Independent Interpretation I performed an independent interpretation of an: EKG and Plain X-Ray (no broken bone) Interpretation: Rate: 68 Rhythm: Normal sinus rhythm [place]: Normal Normal P waves. Normal JARED. Normal QRS complex. ST T wave : No ST-elevation T-wave inversion in V1 qTC: 387 prior studies: No acute ischemia The study has been interpreted contemporaneously by me. . Radiology Impression Discussion of test interpretation with radiology: I have reviewed the radiologist's reading. External Record Review External record reviewed: Outpatient record Prescription Management I considered prescription management with: Pain Medication and Other Discharge Plan Discharge Clinical Impression: Cervical radicular pain Patient Disposition: Home, Self-Care Instructions: Cervical Radiculopathy (ED) Additional Instructions: Your labs are reassuring Your x-ray shows no broken bone I suspect your symptoms are due to a pinched nerve in your neck please follow-up with your doctor for outpatient MRI as needed, physical therapy referral Findings: Normal alignment. No acute fractures or dislocation. Multilevel disc height loss with reactive endplate change and osteophyte formation with bilateral facet hypertrophy. Prevertebral soft tissues within normal limits. IMPRESSION: Degenerative changes. No acute findings. Prescriptions: New cyclobenzaprine 10 mg tablet 10 mg PO TID PRN (Reason: muscle spasm) Qty: 20 0RF lidocaine 5 % adhesive patch,medicated 1 patch topical DAILY Qty: 30 0RF Rx Instructions: leave on most painful area for up to 12 hrs No Action (DME) pen needle, diabetic [BD Corin 2nd Gen Pen Needle] 32 gauge x 5/32 needle See Rx Instructions .MEDSUPPLY Qty: 100 4RF Rx Instructions: once a day (DME) blood-glucose meter [FreeStyle Lite Meter] Kit See Rx Instructions .Route Qty: 1 0RF Rx Instructions: As directed TID (DME) blood pessure cuff See Rx Instructions .Route .MEDSUPPLY Qty: 1 0RF Rx Instructions: As directed (DME) cane Device See Rx Instructions .Route Qty: 1 0RF Rx Instructions: As directed (DME) lancets [TRUEplus Lancets] 33 gauge misc See Rx Instructions .ROUTE TID Qty: 100 11RF Rx Instructions: As directed check BS TID ferrous sulfate 325 mg (65 mg iron) Tablet 325 mg PO BID Qty: 60 6RF Brilinta 90 mg tablet 90 mg PO BID Qty: 60 11RF Rx Instructions: started 10/2024 (DME) pen needle, diabetic 32 gauge x 5/32 needle See Rx Instructions .Route Qty: 100 1RF Rx Instructions: As directed (DME) FreeStyle Lite Strips Strip See Rx Instructions .ROUTE .MEDSUPPLY Qty: 100 5RF Rx Instructions: 3 times a day cholecalciferol (vitamin D3) 50 mcg (2,000 unit) capsule 50 mcg PO DAILY Qty: 90 3RF levothyroxine 150 mcg tablet 150 mcg PO DAILY@0600 Qty: 30 4RF isosorbide mononitrate 30 mg tablet extended release 24 hr 30 mg PO DAILY Qty: 90 1RF fluoxetine 10 mg capsule 10 mg PO DAILY Qty: 90 2RF dapagliflozin propanediol [Farxiga] 10 mg tablet 10 mg PO DAILY Qty: 90 2RF losartan 25 mg tablet 25 mg PO DAILY Qty: 90 2RF metformin 1,000 mg tablet 1,000 mg PO BID Qty: 180 1RF (DME) lancets [FreeStyle Lancets] 28 gauge misc See Rx Instructions .ROUTE .MEDSUPPLY Qty: 100 11RF Rx Instructions: As directed three times a day (DME) FreeStyle Control Solution See Rx Instructions .ROUTE .MEDSUPPLY Qty: 1 Rx Instructions: As directed (DME) pen needle, diabetic [BD Ultra-Fine Corin Pen Needle] 32 gauge x 5/32 needle See Rx Instructions .ROUTE .MEDSUPPLY Qty: 100 3RF Rx Instructions: As directed once daily melatonin 10 mg capsule 10 mg PO BEDTIME PRN (Reason: sleep) Qty: 30 7RF aspirin [Adult Low Dose Aspirin] 81 mg tablet,delayed release (DR/EC) 81 mg PO DAILY Qty: 90 3RF metoprolol succinate 50 mg tablet extended release 24 hr 50 mg PO DAILY Qty: 90 3RF insulin lispro [Humalog KwikPen Insulin] 100 unit/mL insulin pen See Rx Instructions subcut USEASDIRECTD Qty: 15 3RF Rx Instructions: inject according to sliding scale subcutaneously use as directed; < 60 drink juice, 61- 150 no insulin, 151- 230 2 u , 231- 280 4 u, 281-330 6 u , 331-380 8 u and > 380 use 10 u use before lunch insulin glargine [Lantus Solostar U-100 Insulin] 100 unit/mL (3 mL) insulin pen 9 unit subcut DAILY 30 Days Qty: 2.7 3RF Repatha Syringe 140 mg/mL syringe 140 mg subcut Q2W Qty: 1 0RF prednisone 1 mg tablet 1 mg PO DAILY Qty: 588 0RF Rx Instructions: Prednisone 6mg x 4 weeks then 5mg x 4 weeks then 4mg x 4 weeks then 3mg x 4 weeks then 2mg x 4 weeks then 1mg x 4 weeks then stop miconazole nitrate [Miconazole-7] 2 % cream 1 appful vaginal BEDTIME 7 Days Qty: 45 5RF Rx Instructions: Use when needed for recurrent yeast infections inside and outside. Print Language: Albanian
[2025-10-05 07:06] VITALS: BP 165/77; PULSE 74; RESP 13; TEMP 36.5; O2SAT 98
[2025-10-05 08:46] VITALS: BP 165/77; PULSE 74; RESP 13; TEMP 36.5; O2SAT 98
== END 2025-10-05 08:46 | disposition home or self-care (01) ==
PROVIDERS: Emergency Provider Emergency Medicine; PCP Internal Medicine
DX: M54.12 Radiculopathy, cervical region (principal); R51.9 Headache, unspecified; M25.512 Pain in left shoulder; M54.2 Cervicalgia; K21.9 Gastro-esophageal reflux disease without esophagitis; I10 Essential (primary) hypertension; E11.9 Type 2 diabetes mellitus without complications; Z79.84 Long term (current) use of oral hypoglycemic drugs; Z79.4 Long term (current) use of insulin
CPT/HCPCS: 36415; 72040; 80053; 84484; 85025; 93005; 99283; 99284

== ENCOUNTER → 2025-10-05 05:33 | Outpatient (BNV) | payer OTHER, SELFPAY | PROVIDERS: Emergency Provider Emergency Medicine; PCP Internal Medicine; Visit Provider Internal Medicine Cardiovascular Disease | DX: M25.512 Pain in left shoulder (principal) | CPT/HCPCS: 93010 ==

== ENCOUNTER → 2025-10-05 06:19 | Outpatient (BNV) | payer OTHER, SELFPAY | PROVIDERS: Emergency Provider Emergency Medicine; PCP Internal Medicine; Visit Provider Radiology Diagnostic Radiology | DX: M54.2 Cervicalgia (principal) | CPT/HCPCS: 72040 ==

== ENCOUNTER 2025-10-14 10:08 | Outpatient (AMB) | payer OTHER, SELFPAY ==
--- NOTE | 2025-10-14 10:18 | AM.OFFWIN_ITS ---
Intake Vital Signs 10/14/25 10:20 Height 5 ft 4 in Weight 140 lb BMI 24.0 BP 138/80 Blood Pressure Location Lt brachial Position Sitting Pulse 78 Pulse Source Pulse Oximeter Pulse Oximetry (%) 99 Oxygen Delivery Method Room Air Intake Visit Reasons: EP-headaches and head pressure Intake Note: Patient presents c/o throbbing headache x5 days that she feels in her ears & her eyes. Tylenol is not helpful. Denies nausea/vomiting Patient Tobacco Use Status: Never used Tobacco Allergies penicillin V Allergy (Unknown, Verified 10/14/25 10:22) hives Penicillins (PENICILLINS) Allergy (Unknown, Verified 10/14/25 10:22) RASH,DIZZINESS HPI EP-headaches and head pressure HPI Details This is a 64 year old female patient with a PMH of coronary artery dise ase on Brilinta, diabetes, anxiety, GERD, left shoulder tendinitis, hyperlipidemia, hypertension, hypothyroidism, anemia who presents to the [facility] with report of a 2 month history of head pressure, associated with ringing of the ears, and sensation of this pressure radiating to her extremities. Has some intermittent dizziness. No LOC. Denies any head trauma, recent illness, or history of headaches. Denies any vision changes or photophobia. Has taken Tylenol for these headaches without relief. Reports headaches are constant, daily, without reprieve. Upon review of prior records, she has a known cervical radiculopathy. She was seen in the ED on 10/05 for radiating neck pain - XR of the c-spine 10/05 (ED) indicated degenerative changes, no acute findings. She was prescribed flexeril and took it one time with some relief. Has not taken it again but is not opposed to this. [facility] Medical History Dermatomyositis Elevated CK CAD (coronary artery disease) STEMI (ST elevation myocardial infarction) GERD (gastroesophageal reflux disease) Physical exam, pre-employment Sebaceous cyst RUQ pain Cervical polyp Muscle strain of right scapular region H. 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 Current occupational exposures/hazards: No Cognitive needs: No Hearing needs: No Vision needs: No Female Reproductive History Menstrual Age of Menarche: 12 Review of Systems Const All systems reviewed & are unremarkable except as noted in HPI and below Physical Exam Vital Signs: Last Vital Signs Pulse 78 10/14/25 10:20 BP 138/80 10/14/25 10:20 Pulse Ox 99 10/14/25 10:20 Oxygen Delivery Method Room Air 10/14/25 10:20 BMI result Body Mass Index 24.0 Const General: cooperative and comfortable Nutritional Appearance: average body habitus HEENT Head: Yes normal to inspection, Yes normocephalic and Yes atraumatic Ears: hearing grossly normal bilaterally, external ears normal and TM's normal bilaterally General nose exam: Normal external nose present Face and sinus: Yes normal facial exam, Yes sinuses nontender, Yes face symmetric and Yes normal transillumination of sinuses Mouth: Normal oral and palatal mucosa present Eyes General: appearance normal, both eyes and all related structures Pupils: Equal, round and reactive pupils present and Pupil accommodation reflex normal EOM: EOMs intact bilaterally Direct Ophthalmoscopy: normal light reflex and no photophobia Neck Neck: Yes no lymphadenopathy Resp Effort & Inspection: normal respiratory effort Back/Spine/Pelvis Cervical Spine: normal cervical lordosis, cervical muscular tenderness (b/l cervical ttp L>R, ttp traps), pain with cervical ROM (lat bending) and other (+ spurlings left) Skin General skin exam: no rashes or lesions noted Neuro General: Normal light touch and pain sensation Cranial nerves: Yes Equal, round and reactive pupils present Motor exam (neuro): 5/5 motor strength present throughout Extrem General: Yes capillary refill normal and Yes no clubbing, cyanosis or edema Psych Appearance: grossly normal Mental Status: mental status grossly normal Speech and movement: Normal speech and movement present Assessment & Plan Assessment & Plan (1) Frequent headaches: Code(s): R51.9 - Headache, unspecified Plan: Patient is having chronic, daily headaches. Neuro exam normal. She does have some cervical spine pain with ROM, and a positive Spurling's on the left. It is possible this is musculoskeletal related. She is open to starting a course of PT, which I will order to address likely cervical radiculopathy. She has a f/u with PCP Dr. Garcia next month at which time she can further discuss this - she cannot take NSAIDs however she can continue to take Tylenol and previously prescribed cyclobenzaprine. Patient followed by rheumatology renee waller. She could potentially benefit from referral to [facility]injection therapy. If she develops any worsening symptoms, vision changes, or anything else concerning she can go to the emergency department for further evaluation. (2) Cervical radiculopathy: Code(s): M54.12 - Radiculopathy, cervical region Plan: PT and as above Orders: Orders PT Evaluation and Treatment Today M54.12 - Radiculopathy, cervical region, R51.9 - Headache, unspecified Coding Level of Care Code Est Pt Level 4 (99866) Diagnoses Frequent headaches R51.9 Cervical radiculopathy M54.12
[2025-10-14 10:20] VITALS: BP 138/80; PULSE 78; O2SAT 99; BMI 24.0
--- OUTSIDE RECORDS SUMMARY | 2025-10-14 19:16 | XMS_ITS | Encounter Summary ---
Author Organization [facility] Address [address] [place] [address] Phone Care Team Providers Care Radar Engineer Name Role Phone Unknown, Unknown Primary Care Provider Qamar byrd Pcp, Unknown Unavailable Unavailable Conor Garcia MD Primary Care Provider [phone] Encounter Details Date Type Department Care Team (Latest Contact Info) Description 04/10/2019 Ancillary Orders [facility] [address] [place] [address] [place] [address] Anson Falcon, DO [address] [place] [address] Palpitations; Other chest pain Social History Tobacco [...] pain documented in this encounter Care Teams Radar Engineer Relationship Specialty Start Date End Date Unknown, Unknown, MD PCP - General 04/09/19 12/15/24 Po, Conor Carcamo MD [address] [place] [address] Drive [address] [place] [address] PCP - General Internal Medicine 12/16/24 Pcp, Unknown 04/09/19 documented as of this encounter Additional Source Comments The information contained in this document represents components of the legal health record. It is not the complete legal health record.[facility]
--- OUTSIDE RECORDS SUMMARY | 2025-10-14 19:17 | XMS_ITS | Encounter Summary ---
Author Organization [facility] Address [address] [place] [address] Phone Care Team Providers Care Modern Greek Studies Professor Name Role Phone Unknown, Unknown Primary Care Provider Qamar byrd Pcp, Unknown Unavailable Unavailable Conor Garcia MD Primary Care Provider [phone] Encounter Details Date Type Department Care Team (Latest Contact Info) Description 04/17/2019 Ancillary Orders [facility] [address] [place] [id number] Anson Falcon, DO [address] [place] [address] Chest pain, unspecified type; Palpitations Social History [...] Palpitations documented in this encounter Care Teams Modern Greek Studies Professor Relationship Specialty Start Date End Date Unknown, Unknown, PCP - General 04/09/19 12/15/24 Conor Garcia MD [address] [place] [address] PCP - General Internal Medicine 12/16/24 Pcp, Unknown 04/09/19 documented as of this encounter Additional Source Comments The information contained in this document represents components of the legal health record. It is not the complete legal health record.[facility]
--- OUTSIDE RECORDS SUMMARY | 2025-10-14 19:17 | XMS_ITS | Clinical Summary ---
Author Organization [facility] Address [address] [facility] [address] [place] [address] Phone Care Team Providers Care Sanitation Lead Name Role Phone Pcp, Unknown Unavailable Unavailable Conor Garcia MD Primary Care Provider [phone] Allergies Active Allergy Reactions Criticality Noted Date [...] Active ferrous sulfate 325 mg (65 mg [place] iron) tablet Take 325 mg by mouth. [...] unspecified vessel or lesion type, unspecified whether inupiat or transplanted heart from Last 3 Months or Most Recently Relevant to Health Maintenance Results * (ABNORMAL) Lipid panel (12/18/2024 11:58 AM EST) HDL 43 mg/dL [facility] Comment: Interpretation <40 mg/dL: Low HDL cholesterol (major risk factor for CHD) Greater than or equal to 60 mg/dL: High HDL cholesterol ( negative risk factor for CHD) HDL - cholesterol is affected by a number of factors, e.g. smoking, excerise, hormones, sex and age. CHOLESTEROL 182 0 - 240 mg/dL [facility] TRIGLYCERIDES 185(H) 30 - 160 mg/dL [facility] LDL 102 50 - 129 mg/dL [facility] Comment: LDL levels in terms of risk for coronary heart disease: <100 mg/dL: Optimal 100-129 mg/dL: Near or above optimal 130-159 mg/dL: Borderline high 160-189 mg/dL: High >190 mg/dL: Very High CARDIAC RISK RATIO 4.2 3.3 - 4.4 C [facility] Blood 12/18/2024 11:5 8 AM EST 12/18/2024 12:09 PM EST Carl Rosa MD LAB BLOOD BKR ORDERABLES Ally l Result Performing Organization Address City/State/[facility] Co de Phone Number [facility] [address] [place] [address] from Last 3 Months or Most Recently Relevant to Health Maintenance Insurance [place] [address] [place] [address] ACO [facility] ACO [facility] [place] [address] [place] [address] ACO Care Teams Sanitation Lead Relationship Specialty Start Date End Date Conor Garcia MD [address] [place] [address] PCP - General Internal Medicine 12/16/24 Pcp, Unknown 04/09/19 Additional Source Comments The information contained in this document represents components of the legal health record. It is not the complete legal health record.[facility]
== END 2025-10-14 11:59 | disposition home or self-care (01) ==
PROVIDERS: PCP Internal Medicine; Visit Provider Nurse Practitioner Family
DX: R51.9 Headache, unspecified (principal); M54.12 Radiculopathy, cervical region

== ENCOUNTER → 2025-10-14 10:08 | Outpatient (BNVA) | payer OTHER, SELFPAY | PROVIDERS: PCP Internal Medicine; Visit Provider Nurse Practitioner Family | DX: R51.9 Headache, unspecified (principal); M54.12 Radiculopathy, cervical region | CPT/HCPCS: 99212 ==

== ENCOUNTER 2025-11-10 08:31 | Outpatient (REF) | payer OTHER, SELFPAY ==
--- OUTSIDE RECORDS SUMMARY | 2025-11-10 09:04 | XMS_ITS | Encounter Summary ---
Author Organization [facility] Address [address] [facility] [address] [place] [address] Phone Care Team Providers Care Chemistry Quality Control Technician Name Role Phone Unknown, Unknown Primary Care Provider Qamar byrd Pcp, Unknown Unavailable Unavailable Conor Garcia MD Primary Care Provider [phone] Encounter Details Date Type Department Care Team (Latest Contact Info) Description 04/17/2019 Ancillary Orders [facility] [address] [place] [address] Anson Falcon, DO [address] [place] [address] Chest pain, unspecified type; Palpitations Social History [...] Palpitations documented in this encounter Care Teams Chemistry Quality Control Technician Relationship Specialty Start Date End Date Unknown, Unknown, PCP - General 04/09/19 12/15/24 Conor Garcia MD [address] [facility] [address] [facility] [address] [place] [address] PCP - General Internal Medicine 12/16/24 Pcp, Unknown 04/09/19 documented as of this encounter Additional Source Comments The information contained in this document represents components of the legal health record. It is not the complete legal health record.[facility]
--- OUTSIDE RECORDS SUMMARY | 2025-11-10 09:04 | XMS_ITS | Clinical Summary ---
Author Organization [facility] Address [address] [facility] [address] [place] [address] Phone Care Team Providers Care Registered Nurse Name Role Phone Pcp, Unknown Unavailable Unavailable Conor Garcia MD Primary Care Provider [phone] Allergies Active Allergy Reactions Criticality Noted Date [...] Active ferrous sulfate 325 mg (65 mg [place] iron) tablet Take 325 mg by mouth. [...] unspecified vessel or lesion type, unspecified whether [place] or transplanted heart from Last 3 Months or Most Recently Relevant to Health Maintenance Results * (ABNORMAL) Lipid panel (12/18/2024 11:58 AM EST) HDL 43 mg/dL [facility] Comment: Interpretation <40 mg/dL: Low HDL cholesterol (major risk factor for CHD) Greater than or equal to 60 mg/dL: High HDL cholesterol ( negative risk factor for CHD) HDL - cholesterol is affected by a number of factors, e.g. smoking, excerise, hormones, sex and age. CHOLESTEROL 182 0 - 240 mg/dL [facility] TRIGLYCERIDES 185(H) 30 - 160 mg/dL [facility] LDL 102 50 - 129 mg/dL [facility] Comment: LDL levels in terms of risk for coronary heart disease: <100 mg/dL: Optimal 100-129 mg/dL: Near or above optimal 130-159 mg/dL: Borderline high 160-189 mg/dL: High >190 mg/dL: Very High CARDIAC RISK RATIO 4.2 3.3 - 4.4 C [facility] Blood 12/18/2024 11:5 8 AM EST 12/18/2024 12:09 PM EST Carl Rosa MD LAB BLOOD BKR ORDERABLES Ally l Result Performing Organization Address City/State/[facility] Co de Phone Number [facility] [address] [place] [address] from Last 3 Months or Most Recently Relevant to Health Maintenance Insurance [place] [address] [place] [address] [facility] [place] [address] [place] [address] ACO Care Teams Registered Nurse Relationship Specialty Start Date End Date Conor Garcia MD [address] [place] [address] PCP - General Internal Medicine 12/16/24 Pcp, Unknown 04/09/19 Additional Source Comments The information contained in this document represents components of the legal health record. It is not the complete legal health record.[facility]
--- OUTSIDE RECORDS SUMMARY | 2025-11-10 09:04 | XMS_ITS | Encounter Summary ---
Author Organization [facility] Address [address] [facility] [address] [place] [address] Phone Care Team Providers Care Swatch Paster Name Role Phone Unknown, Unknown Primary Care Provider Qamar byrd Pcp, Unknown Unavailable Unavailable Conor Garcia MD Primary Care Provider [phone] Encounter Details Date Type Department Care Team (Latest Contact Info) Description 04/10/2019 Ancillary Orders [facility] [address] [place] [address] [place] [address] Anson Falcon, DO [address] [place] [address] Palpitations; Other chest pain Social History Tobacco [...] pain documented in this encounter Care Teams Swatch Paster Relationship Specialty Start Date End Date Unknown, Unknown, MD PCP - General 04/09/19 12/15/24 Po, Conor Carcamo MD [address] [place] [address] [address] [place] [address] PCP - General Internal Medicine 12/16/24 Pcp, Unknown 04/09/19 documented as of this encounter Additional Source Comments The information contained in this document represents components of the legal health record. It is not the complete legal health record.[facility]
[2025-11-10 09:23] LABS: Cholesterol 143 mg/dL (<200); HDL Cholesterol 42 mg/dL (>40); Triglycerides 88 mg/dL (<150)
== END 2025-11-10 08:32 | disposition home or self-care (01) ==
LOC: HO.LAB 08:31
PROVIDERS: PCP Internal Medicine; Visit Provider Physician Assistant
DX: E78.5 Hyperlipidemia, unspecified (principal)
CPT/HCPCS: 36415; 80061

== ENCOUNTER → 2025-11-20 08:15 | Outpatient (REF) | payer OTHER, SELFPAY ==
--- OUTSIDE RECORDS SUMMARY | 2025-11-20 08:17 | XMS_ITS | Encounter Summary ---
Author Organization [employer] Address [address] [facility] [address] 7[address] [place] [address] Care Team Providers Care Executive Sous Chef Name Role Phone Unavailable Primary Care Provider Unavailabl e Reason for Visit * Reason Comments Med Refill Encounter Details Date Type Department Care Team (Late st Contact Info) Description 01/12/2025 Refill [facility] MEDICINE [address] [place] [address] Kimberley Cunningham FNP [address] [place] [address] Type 2 diabetes mellitus with hyperglycemia (CMS/HCC) [...]
--- OUTSIDE RECORDS SUMMARY | 2025-11-20 08:17 | XMS_ITS | Encounter Summary ---
Author Organization [employer] Address [address] [facility] 7t [place] [address] Care Team Providers Care Jewel Hole Gauger Name Role Phone Kimberley Cunningham STONE SETTER Primary Care Provider [phone] Encounter Details Date Type Department Care Team ([facility] st Contact Info) Description 10/12/[address] [facility] MEDICINE [address] [place], [place] [phone] Sandra Villareal Social History Tobacco Use Types [...] documented as of this encounter Care Teams Jewel Hole Gauger Relationship Specialty Start Date End Date Kimberley Cunningham FNP [address] [place] [address] PCP - General Family Medicine 07/23/22 03/20/24 documented as of this encounter
--- OUTSIDE RECORDS SUMMARY | 2025-11-20 08:17 | XMS_ITS | Encounter Summary ---
Author Organization [employer] Address [address] [facility] [address]t [place] [address] Care Team Providers Care Rn Care Transition Name Role Phone Unavailable Primary Care Provider Unavailabl e Reason for Visit * Reason Comments Med Refill Encounter Details Date Type Department Care Team (Late st Contact Info) Description 01/16/2025 Refill [facility] MEDICINE [address] [place] [address] Kimberley Cunningham FNP [address] [place] [address] Type 2 diabetes mellitus with hyperglycemia (CMS/HCC) [...]
--- OUTSIDE RECORDS SUMMARY | 2025-11-20 08:17 | XMS_ITS | Encounter Summary ---
Author Organization [employer] Address [address] [facility] 7t [place] [address] Care Team Providers Care Newspaper Managing Editor Name Role Phone Kimberley Cunningham DIAMOND WHEEL MOLDER Primary Care Provider [phone] Reason for Visit * Reason Comments Med Refill Encounter Details Date Type Department Care Team ([facility] st Contact Info) Description 09/08/2023 Refill [facility] MEDICINE [address] [place], [place] [phone] Jojo Washburn MD [address] [place], [place] [phone] Depressive disorder Social History Tobacco Use Types [...] documented as of this encounter Care Teams Newspaper Managing Editor Relationship Specialty Start Date End Date Kimberley Cunningham FNP [address] [place] [address] PCP - General Family Medicine 07/23/22 03/20/24 documented as of this encounter
--- OUTSIDE RECORDS SUMMARY | 2025-11-20 08:17 | XMS_ITS | Encounter Summary ---
Author Organization [facility] Address [address] [facility] [address] [place] [address] Phone Care Team Providers Care A/C Technician Name Role Phone Unknown, Unknown Primary Care Provider Qamar byrd Pcp, Unknown Unavailable Unavailable Conor Garcia MD Primary Care Provider [phone] Encounter Details Date Type Department Care Team (Latest Contact Info) Description 04/17/2019 Ancillary Orders [facility] [address] [place] [address] Anson Falcon, DO [address] [place] [address] Chest pain, unspecified type; Palpitations Social History [...] Palpitations documented in this encounter Care Teams A/C Technician Relationship Specialty Start Date End Date Unknown, Unknown, PCP - General 04/09/19 12/15/24 Conor Garcia MD [address] [facility] [address] [facility] [address] [place] [address] PCP - General Internal Medicine 12/16/24 Pcp, Unknown 04/09/19 documented as of this encounter Additional Source Comments The information contained in this document represents components of the legal health record. It is not the complete legal health record.[facility]
--- OUTSIDE RECORDS SUMMARY | 2025-11-20 08:17 | XMS_ITS | Encounter Summary ---
Author Organization [employer] Address [address] [facility] 7t [place] [address] Care Team Providers Care Applier Name Role Phone Unavailable Primary Care Provider Unavailabl e Reason for Visit * Reason Comments Med Refill Encounter Details Date Type Department Care Team ([facility] st Contact Info) Description 10/13/[address] [facility] MED & PEDS [address] [place], [place] [phone] Kimberley Cunningham, EILEEN [address] [place] [address] Type 2 diabetes mellitus without complication, with long-term current use of insulin ([facility]) Social History Tobacco Use Types Packs/Day Years [...]
--- OUTSIDE RECORDS SUMMARY | 2025-11-20 08:17 | XMS_ITS | Encounter Summary ---
Author Organization [employer] Address [address] [facility] [address] [place] [address] Care Team Providers Care Tar Leveler Name Role Phone Unavailable Primary Care Provider Unavailabl e Reason for Visit * Reason Comments Med Refill Encounter Details Date Type Department Care Team ([facility] st Contact Info) Description 11/13/2024 Refill [facility] MEDICINE [address] [place] [address] Kimberley Cunningham FNP [address] [place] [address] Type 2 diabetes mellitus without complication, with long-term current use of insulin ([facility]) Social History Tobacco Use Types [...]
--- OUTSIDE RECORDS SUMMARY | 2025-11-20 08:17 | XMS_ITS | Clinical Summary ---
Author Organization [employer] Address [address] [facility] 7t [place] [address] Care Team Providers Care Guest Services Director Name Role Phone Unavailable Primary Care [...] -Pt in the process of re-establishing with [facility] -Per last available consult note: -CONT [...] of 2 - PCV) 11/03/2004 11/03/2003, 11/03/2003 RSV Patients and Patients Aged 60 years or older (1 - Risk 50-74 years 1-dose series) 2012 Zoster Vaccines (1 of 2) 2012 Diabetes: Urine Protein Screening 07/13/2022 07/13/2021, 01/14/2021, 09/23/2020 Lipid Panel 10/04/2023 10/04/2022, 09/23/2020 Depression Screening 01/09/2024 01/09/2023, 01/09/20 23 SDOH Screening 01/09/2024 01/09/2023 Cervical Cancer Screening 03/14/2024 HPV/Cotest 03/14/2024 03/14/2019 Pap Smear 03/14/2024 03/14/2019 Diabetes: Hemoglobin A1C 05/01/202401/29/2 024, 12/25/2022, 07/13/2021, Additional history exists Mammogram 10/05/2024 10/05/2022, 04/0 03/2021, 09/26/2019, Additional history exists Eye Exam 01/18/2025 01/18/2024, 02/2 01/2024, 01/18/2024, Additional history exists Tobacco Screening 01/18/2025 01/18/2024 COVID-19 Vaccine ( season) 2025 06/21/2021, 05/24/2021 Influenza Vaccine (#1) [...] on patient's age to complete this topic Goals Goal Patient Goal Type Associated Problems Recent Progress Patient-Stated? Author Help patients manage their type 2 diabetes Care Plan Help patients manage their type 2 diabetes No Kathryn Lake PharmD Weekly blood pressure task Care Plan Weekly blood pressure task No Kathryn Lake PharmD Help patients manage their type 2 diabetes Care Plan Help patients manage their type 2 diabetes No Kathryn Lake PharmD Patient has chronic kidney disease Care Plan Patient has chronic kidney disease No Kathryn Lake PharmD Weekly blood pressure task Care Plan Weekly blood pressure task No Kathryn Lake PharmD Patient has chronic kidney disease Care Plan Patient has chronic kidney disease No Kathryn Lake PharmD Procedures Procedure Name Priority Date/Time Associated Diagnosis Comments POCT GLYCATED HEMOGLOBIN, TOTAL Routine 01/30/2024 1:44 PM EST Type 2 diabetes mellitus without complication, with long-term current use of insulin ([facility]) MAMMOGRAM GENERIC Routine 10/05/2022 [...] Legacy Procedure: Mammography Report 1 Kimberley Cunningham KEY RINGER IMG BI PROCEDURES Final Result * LIPID [...] factors. LDL-C is now calculated using the Laila calculation, which is a validated novel method providing better accuracy than the Friedewald equation in the estimation of LDL-C. Jesús ROBERTS et al. KORTNEY. 2013;310(56): 9847-8207 (http://education.Retrace/faq/WNQ462) Non-HDL Cholesterol 87 <130 mg/dL (calc) [facility] Comment: For patients with diabetes plus 1 major ASCVD risk factor, treating to a non-HDL-C goal of <100 mg/dL (LDL-C of <70 mg/dL) is considered a therapeutic option. Triglycerides 91 <150 mg/dL [facility] 10/04/2022 8:50 AM EST Kimberley Cunningham KEY RINGER LAB BLOOD ORDERABLES Final Res ult Performing Organization Address City/[facility]/ZIP Co de Phone Number [facility] * MICROALBUMIN, RANDOM (07/13/2021 10:40 AM EDT) Creatinine Urine 30.03 mg/dL [facility] Microalbum/Creati nine Ratio Ur TNP ug/mg cr [facility] Comment: Unable to calculate albumin/creatinine ratio due to low microalbumin or creatinine result. Microalbumin Urine <5.0 mg/L [facility] 07/13/2021 10:4 0 AM EDT Historical Provider HISTORICAL/NON ORDERABLE LABS Final Result Performing Organization Address City/[facility]/ZIP Co de Phone Number [facility] [address] * Pap Smear (03/14/2019) Pap Negative [...] or Most Recently Relevant to Health Maintenance Additional Health Concerns Active Problems Noted Date Diagnosed Date Help patients manage their type 2 diabetes 10/16 Weekly blood pressure task 10/16/2025 Help patients manage their type 2 diabetes 10/16 Patient has chronic kidney disease 10/16/2025 Weekly blood pressure task 10/16/2025 Patient has chronic kidney disease 10/16/[address] [facility] MEDICAID STAND ADULT
--- OUTSIDE RECORDS SUMMARY | 2025-11-20 08:17 | XMS_ITS | Encounter Summary ---
Author Organization [employer] Address [address] [facility] [address] 7t [place] [address] Care Team Providers Care Class A Lineman Name Role Phone Unavailable Primary Care Provider Unavailabl e Reason for Visit * Reason Comments Med Refill Encounter Details Date Type Department Care Team ([facility] st Contact Info) Description 08/12/2024 Refill [facility] MEDICINE [address] [place] [address] Kimberley Cunningham FNP [address] [place] [address] Vitamin D insufficiency Social History Tobacco Use [...] the past 12 months, has t he [employer], gas, oil or water company threatened to [...]
--- OUTSIDE RECORDS SUMMARY | 2025-11-20 08:17 | XMS_ITS | Clinical Summary ---
Author Organization [facility] Address [address] [place] [address] Care Team Providers Care Veterinary Radiologist Name Role Phone Zaria Milan MD Primary Care Provider [phone] Social History Tobacco Use Types Packs/Day Years [...] patient's age to complete this topic Insurance [facility] Medicaid Care Teams Veterinary Radiologist Relationship Specialty Start Date End Date Zaria Milan MD [address] [place], [place] PCP - General Internal Medicine 02/16/25
--- OUTSIDE RECORDS SUMMARY | 2025-11-20 08:17 | XMS_ITS | Encounter Summary ---
Author Organization [employer] Address [address] [facility] 7t [place] [address] Care Team Providers Care Claims Account Specialist Name Role Phone Unavailable Primary Care Provider Unavailabl e Reason for Visit * Reason Comments Med Refill Encounter Details Date Type Department Care Team ([facility] st Contact Info) Description 08/15/2024 Refill [facility] 505 [place] [address] Kimberley Cunningham, ROAD ENGINEER [address] [place] [address] Hypothyroidism, unspecified type Social History Tobacco Use [...]
--- OUTSIDE RECORDS SUMMARY | 2025-11-20 08:17 | XMS_ITS | Encounter Summary ---
Author Organization [facility] Address [address] [facility] [address] [place] [address] Phone Care Team Providers Care Cogeneration Technician Name Role Phone Unknown, Unknown Primary Care Provider Qamar byrd Pcp, Unknown Unavailable Unavailable Conor Garcia MD Primary Care Provider [phone] Encounter Details Date Type Department Care Team (Latest Contact Info) Description 04/10/2019 Ancillary Orders [facility] [address] [place] [address] [place] [address] Anson Falcon, DO [address] [place] [address] Palpitations; Other chest pain Social History Tobacco [...] pain documented in this encounter Care Teams Cogeneration Technician Relationship Specialty Start Date End Date Unknown, Unknown, MD PCP - General 04/09/19 12/15/24 Po, Conor Carcamo MD [address] [place] [address] Drive [address] [place] [address] PCP - General Internal Medicine 12/16/24 Pcp, Unknown 04/09/19 documented as of this encounter Additional Source Comments The information contained in this document represents components of the legal health record. It is not the complete legal health record.[facility]
--- OUTSIDE RECORDS SUMMARY | 2025-11-20 08:17 | XMS_ITS | Encounter Summary ---
Author Organization [employer] Address [address] [facility] [address]t [place] [address] Care Team Providers Care Fisher Purse Seine Name Role Phone Unavailable Primary Care Provider Unavailabl e Reason for Visit * Reason Comments Med Refill Encounter Details Date Type Department Care Team ([facility] st Contact Info) Description 05/21/2024 Refill [facility] MEDICINE [address] [place] [address] Kimberley Cunningham FNP [address] [place] [address] Primary hypertension Social History Tobacco Use Types [...] t he electric, gas, oil or water [employer] threatened to shut off services in your [...]
--- OUTSIDE RECORDS SUMMARY | 2025-11-20 08:17 | XMS_ITS | Encounter Summary ---
Author Organization [employer] Address [address] [facility] 7t [place] [address] Care Team Providers Care Android Architect Name Role Phone Unavailable Primary Care Provider Unavailabl e Reason for Visit * Reason Comments Med Refill Encounter Details Date Type Department Care Team ([facility] st Contact Info) Description 09/10/2024 Refill [facility] [address] [place] [address] Kimberley Cunningham, EILEEN [address] [place] [address] Depressive disorder Social History Tobacco Use Types [...] t he electric, gas, oil or water [employer] threatened to shut off services in your [...]
--- OUTSIDE RECORDS SUMMARY | 2025-11-20 08:17 | XMS_ITS | Encounter Summary ---
Author Organization [employer] Address [address] [facility] [address] 7t [place] [address] Care Team Providers Care Ship'S Carpenter Name Role Phone Unavailable Primary Care Provider Unavailabl e Reason for Visit * Reason Comments Med Refill Encounter Details Date Type Department Care Team ([facility] st Contact Info) Description 06/17/2024 Refill [facility] MEDICINE 230 [place] [address] Kimberley Cunningham FNP [address] [place] [address] Other hyperlipidemia; Type 2 diabetes mellitus with [...]
--- OUTSIDE RECORDS SUMMARY | 2025-11-20 08:17 | XMS_ITS | Clinical Summary ---
Author Organization [facility] Address [address] [facility] [address] [place] [id number] Phone Care Team Providers Care Ed Tech Name Role Phone Pcp, Unknown Unavailable Unavailable [...] Active ferrous sulfate 325 mg (65 mg cahto iron) tablet Take 325 mg by mouth. [...] unspecified vessel or lesion type, unspecified whether [place] or transplanted heart from Last 3 Months or Most Recently Relevant to Health Maintenance Results * (ABNORMAL) Lipid panel (12/18/2024 11:58 AM EST) HDL 43 mg/dL [facility] Comment: Interpretation <40 mg/dL: Low HDL cholesterol (major risk factor for CHD) Greater than or equal to 60 mg/dL: High HDL cholesterol ( negative risk factor for CHD) HDL - cholesterol is affected by a number of factors, e.g. smoking, excerise, hormones, sex and age. CHOLESTEROL 182 0 - 240 mg/dL [facility] TRIGLYCERIDES 185(H) 30 - 160 mg/dL [facility] LDL 102 50 - 129 mg/dL [facility] Comment: LDL levels in terms of risk for coronary heart disease: <100 mg/dL: Optimal 100-129 mg/dL: Near or above optimal 130-159 mg/dL: Borderline high 160-189 mg/dL: High >190 mg/dL: Very High CARDIAC RISK RATIO 4.2 3.3 - 4.4 C [facility] Blood 12/18/2024 11:5 8 AM EST 12/18/2024 12:09 PM EST Carl Rosa MD LAB BLOOD BKR ORDERABLES Ally l Result Performing Organization Address City/State/[facility] Co de Phone Number [facility] [address] [place] [address] from Last 3 Months or Most Recently Relevant to Health Maintenance Insurance [place] [address] [address] [place] [address] ACO * Guarantor: Denies Pearson I Account Type Relation to Patient Date of Phone Billing Address Personal/Family Self [address] [place] [id number] [facility] ACO [facility] [place] [address] [place] [address] ACO Care Teams Ed Tech Relationship Specialty Start Date End Date Conor Garcia MD [address] [place] [address] PCP - General Internal Medicine 12/16/24 Pcp, Unknown 04/09/19 Additional Source Comments The information contained in this document represents components of the legal health record. It is not the complete legal health record.[facility]
--- OUTSIDE RECORDS SUMMARY | 2025-11-20 08:17 | XMS_ITS | Encounter Summary ---
Author Organization [email or web address] Address [address] [place] [address] Care Team Providers Care Leadership Intern Name Role Phone Unavailable Primary Care Provider Unavailabl e Reason for Visit * Reason Comments Med Refill Encounter Details Date Type Department Care Team ([facility] st Contact Info) Description 05/20/2024 Refill [facility]INE [address] [place] [address] Kimberley Cunningham FNP [address] [place] [address] Primary hypertension Social History Tobacco Use Types [...] t he electric, gas, oil or water [email or web address] threatened to shut off services in your [...]
--- OUTSIDE RECORDS SUMMARY | 2025-11-20 08:17 | XMS_ITS | Encounter Summary ---
Author Organization [employer] Address [address] [facility] [address] [place] [address] Care Team Providers Care Senior Major Gifts Officer Name Role Phone Kimberley Cunningham Primary Care Provider [phone] Reason for Visit * Reason Comments Med Refill Encounter Details Date Type Department Care Team ([facility] st Contact Info) Description 07/26/2023 Refill [facility] [address] [place] [address] Kimberley Cunningham FNP [address] [place] [address] Depressive disorder Social History Tobacco Use Types [...] documented as of this encounter Care Teams Senior Major Gifts Officer Relationship Specialty Start Date End Date Kimberley Cunningham FNP [address] [place] [address] PCP - General Family Medicine 07/23/22 03/20/24 documented as of this encounter
--- OUTSIDE RECORDS SUMMARY | 2025-11-20 08:17 | XMS_ITS | Encounter Summary ---
Author Organization [facility] Address [address] [facility] [address] [place] [address] Care Team Providers Care Fur Puller Name Role Phone Kimberley Cunningham Primary Care Provider [phone] Encounter Details Date Type Department Care Team (Latest Contact Info) Description 01/20/2021 Abstract [facility] CONVERSIONS Dental, Provider, DDS Social History Tobacco [...] on filedocumented in this encounter Care Teams Fur Puller Relationship Specialty Start Date End Date Kimberley Cunningham FNP [address] [place] [phone] PCP - General Family Medicine 07/23/22 03/20/24 documented as of this encounter
--- OUTSIDE RECORDS SUMMARY | 2025-11-20 08:17 | XMS_ITS | Encounter Summary ---
Author Organization [employer] [facility] Address [address] [facility] [address] [place] [address] Care Team Providers Care Numerical Control Nesting Operator Name Role Phone Kimberley Cunningham Primary Care Provider [phone] Encounter Details Date Type Department Care Team (Latest Contact Info) Description 01/07/2020 Abstract [facility] CONVERSIONS Dental, Provider, DDS Social History Tobacco [...] on filedocumented in this encounter Care Teams Numerical Control Nesting Operator Relationship Specialty Start Date End Date Kimberley Cunningham FNP [address] [place] [id number] PCP - General Family Medicine 07/23/22 03/20/24 documented as of this encounter
--- NOTE | 2025-11-20 08:18 | CA_ITS ---
Acquisition Time: 2025-11-20 08:17:15 Total Exercise Time: 00:05:00 Test Indications: CP,Dyspnea Medications: SEE EMAR Protocol: CORNELIA Max HR: 157 BPM 99% of Pred: 158 BPM Max BP: 210/54 mmHG Max Work Load: 4.6 METS Exercise stress test with exercise 5 mins of Cornelia Protocol held at Stage with a reduced speed of 1.5mph, with reports of SOB, without any arrythmias, with hypertensive response to exercise - max BP 210/54. With ST changes inferolaterally, metting criteria for ischemia. In recovery, symptoms resolved and BP improved. ST segment improved. Recommend further evaluation and will let PCP know. Will also reachout out to primary cardilogist of the abnormal finding. Test reviewed with Dr. Leong. Referred By: Conor Garcia Electronically Signed By: Carson Bobo
== END ==
LOC: HO.CARD 08:15
PROVIDERS: PCP Internal Medicine; Visit Provider Internal Medicine
DX: I25.10 Atherosclerotic heart disease of native coronary artery without angina pectoris (principal); R07.9 Chest pain, unspecified
CPT/HCPCS: 93017

== ENCOUNTER → 2025-11-20 08:18 | Outpatient (BNV) | payer OTHER, SELFPAY | PROVIDERS: PCP Internal Medicine | DX: I25.10 Atherosclerotic heart disease of native coronary artery without angina pectoris (principal) | CPT/HCPCS: 93016; 93018 ==